=== PATIENT | female | born 1955 | race African-American/Black ===

== ENCOUNTER 2019-04-04 19:49 | Emergency (ER) | payer MEDICAID ==
[2019-04-04] MEDS ORDERED: NA CHLORIDE 0.9% 1,000 ML ONE (20:19)
[2019-04-04 20:35] LABS: Absolute Lymphocytes (CBC) 3.4 K/uL (0.7-4.9); Basophils % 2.1 % (0-1.3); Hematocrit 42.1 % (36.0-45.0); MPV 7.6 fL (7.6-11.3); RBC Red Blood Cell Count 4.99 M/uL (3.86-4.86)
[2019-04-04 20:52] LABS: ALT/SGPT 19 U/L (12-78); AST/SGOT 10 U/L (15-37); Albumin 4.3 g/dL (3.4-5.0); Alkaline Phosphatase 118 U/L (45-117); BUN Blood Urea Nitrogen 5 mg/dL (7-18); Bicarbonate 28 mmol/L (21-32); Bilirubin Total 0.2 mg/dL (0.2-1.0); Glucose Level 121 mg/dL (74-106); Protein, Total 8.2 g/dL (6.4-8.2); Sodium Level 146 mmol/L (136-145)
[2019-04-04] MEDS ORDERED: LIDOCAINE 1% MPF 30 ML VIAL ONE (21:42)
[2019-04-04 22:05] LABS: Blood Morphology Comment NOT SEEN (NOT SEEN); Platelet Estimate ADEQ
[2019-04-04 22:06] LABS: Urine Blood NEGATIVE (NEG); Urine Glucose NEGATIVE (NEG); Urine Protein NEGATIVE (NEG); Urine Specific Gravity 1.015 (1.005-1.030)
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
--- NOTE | 2019-04-06 15:13 | RAD REPORT ---
EXAM DESCRIPTION: Faith Single View04/06/2019 8:38 am CLINICAL HISTORY: Chest pain COMPARISON: 2016 FINDINGS: Due to technical issues at the hospital the exam could not be dictated after completion. It is now available for dictation The lungs appear clear of acute infiltrate. The heart is normal size IMPRESSION: No acute abnormalities displayed
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
== END 2019-04-04 22:46 | disposition home or self-care (01) ==
LOC: ER 19:49
DX: S01.01XA Laceration without foreign body of scalp, initial encounter (principal); F10.10 Alcohol abuse, uncomplicated; W01.198A Fall on same level from slipping, tripping and stumbling with subsequent striking against other object, initial encounter; Y93.89 Activity, other specified; Y92.9 Unspecified place or not applicable; Z88.0 Allergy status to penicillin; Z88.5 Allergy status to narcotic agent; Z91.018 Allergy to other foods; F17.210 Nicotine dependence, cigarettes, uncomplicated; I10 Essential (primary) hypertension; F41.9 Anxiety disorder, unspecified
CPT/HCPCS: 96361; 85025; 36415; 80320; 86900; 86850; 86901; 81003; 80053; 70450; 72125; 71045; 72170; 96360; 99285; J7030

== ENCOUNTER 2021-12-17 10:39 | Observation (INO) | payer OTHER ==
--- OUTSIDE RECORDS SUMMARY | 2021-12-17 10:42 | XMS REPORT | Continuity of Care Document ---
:1955 Author Organization [facility] t Address [address] [place] [address] Care Team Providers Name Role Phone Jennifer MOORE Primary Care Physician Unavailable José Miguel QUARLES Attending Clinician Vega RAYMOND Attending Clinician Unavailable Pgy3 Attending Clinician Unavailable Vega Raymond MD Attending Clinician MARLYS MARKS Attending Clinician Unavailable Payers Payer Name Policy Type Policy Number Effective Date Expiration Date Artem PRIDE/[facility] DUAL [id number] 2021 00:00:00 COMP HMO D SNP Problems Condition Condition Condition Status Onset Resolution Last Treating Co mments Source Name Details Category Date Date Treatment Clinician Date Endometria Endometria Disease Active 2020-07 U nivers l l 0-31 ity [place] a, simple 00 [facility] Branch Fibroids, Fibroids, Disease Active Uni vers submucosal submucosal 2-10 it y of 00:: [place] [facility] Endometria Endometria Disease Active Overview : Univers l polyp l polyp 1-05 Formattin ity o f 00:00: g of this [place] note Medical might be Branch different from the original. Added automatic ally from request for surgery [id number] Tobacco Tobacco Disease Active Univers use use 7-30 ity of 00:00: [place] [facility] Postmenopa Postmenopa Disease Active 2020-0 U nivers usal usal 7-30 ity of bleeding bleeding 00:00: [place] 00 Medical Branch ASCUS with ASCUS with Disease Active Overview : Univers positive positive 07-30 Formattin ity of high risk high risk 00:00: [place] of this [place] HPV HPV 00 note Medical cervical cervical might be Bran ch different from the original. 07/30/2014 - colpo History of History of Problem Resolve [place] Arthritis Arthritis d Phys ici ans History of History of Problem Resolve [place] Back pain Back pain d Phys ici ans History of History of Problem Resolve [place] Stroke Stroke d Physici ans Lumbar Lumbar Problem Active [facility] strain strain Physici ans Lumbar Lumbar Problem Active [place] facet facet Physici arthropath arthropath an s y y Allergies, Adverse Reactions, Alerts Allergy Allergy Status Severity Reaction(s) Onset Inactive Treating Comm ents Source Name Type Date Date Clinician rosuvast DA Active [facility] atin 10-18 [place] 00:00: [facility] Penicill DA Active [facility] ins 10-03 [place] 00:00: [facility] 00 [facility] banana DA Active [facility] 10-03 [place] 00:00: [facility] 00 [facility] Banana Propensi Active Hives Univers ty to 7 ity of adverse 00:00: [place] reaction 00 Medical s to Branch drug BANANA DRUG Active Hives Univers INGREDI 01-18 ity of 00:00: [place] 00 Medical Branch Codeine Propensi Active Unknown - Univ ers ty to See comments 11-05 ity of adverse 00:00: [place] reaction 00 Medical s Branch Penicill Propensi Active Unknown - Uni vers ins ty to See comments 11-05 ity of adverse 00:00: [place] reaction 00 Medical s Branch CODEINE DRUG Active Unknown-Cmnt Uni vers INGREDI 5 ity of 00:00: [place] 00 Medical Branch PENICILL Drug Active Unknown-Cmnt Un deepak INS Class - ity of 00:00: [place] 00 Medical Branch Penicill Allergy Active [facility] ins to drug Physici (finding ans ) Social History Social Habit Start Date Stop Date Quantity Comments Source History of Cigarette Smoker Universi ty of tobacco use [facility] Exposure to Not sure University of SARS-CoV-2 [place] [facility] (event) Branch Alcohol intake 2021-04-30 2021-04-30 Current University of 00:00:00 00:00:00 non-drinker of [facility] [place] [facility] alcohol (finding) Branch Tobacco Comment 2020-01-30 2020-01-30 smokes 10-12 Univers ity of 00:00:00 00:00:00 cigarettes per day [facility] Tobacco use and 2014-07-30 2014-07-30 Never used Universit y of exposure 00:00:00 00:00:00 [facility] Sex [birth year] At [birth year] Universit y of 00:00:00 00:00:00 [facility] Smoking Status Start Date Stop Date Source Smokes tobacco daily (finding) U T Physicians Medications Ordered Filled Start Stop Current Ordering Indication Dosage Frequency Signature Comments Components Source Medication Medication Date Date Medication? Clinician (SIG) Name Name medroxyPROG 2020-07 Yes 10mg Take 1 Univers ESTERone 0-31 tablet by ity of (PROVERA) 00:00: mouth [place] 10 mg 00 daily. Medical tablet Branch medroxyPROG 2020-07 Yes 10mg Take 1 Univers ESTERone 0-31 tablet by ity of (PROVERA) 00:00: mouth [place] 10 mg 00 daily. Medical tablet Branch medroxyPROG 2020- No [id number] 10mg Take 1 Univers ESTERone 3-03 10-31 tablet by ity o f (PROVERA) 00:00: 00:00 mouth [place] 10 mg 00 :00 daily. Medical tablet Branch traMADOL Yes 50mg Take 50 mg Uni vers (ULTRAM) 50 2-10 by mouth ity of mg tablet 11:10: every 6 [place] [address] (six) Medical hours as Branch needed. NAPROXEN Yes Take by Unive rs SODIUM 2-10 mouth ity of (ALEVE 11:10: daily. [place] ORAL) Medical Branch FLUoxetine Yes 20mg Take 20 mg U nivers (PROZAC) 20 2-10 by mouth ity of mg capsule 11:10: daily. [place] [address] Medical Branch mirtazapine Yes Take by Un deepak (REMERON 2-10 mouth. ity of ORAL) 11:10: [place] [address] Medical Branch cyclobenzap Yes Take by Un deepak rine HCl 2-10 mouth. ity of (CYCLOBENZA 11:10: [place] LYNDSEY ORAL) Medical Branch FELODIPINE Yes Take by Uni vers ORAL 2-10 mouth. ity of 11:10: [place] [address] Medical Branch INDOMETHACI Yes Take by Un deepak N ORAL 2-10 mouth. ity of 11:10: [place] [address] Medical Branch atorvastati Yes Take by Un deepak n calcium 2-10 mouth. ity of (ATORVASTAT 11:10: [place] IN ORAL) Medical Branch GABAPENTIN Yes Take by Uni vers ORAL 2-10 mouth. ity of 11:10: [place] [address] Medical Branch diclofenac Yes 75mg Take 75 mg U nivers 75 mg EC 2-10 by mouth 2 ity o f tablet 11:10: (two) [place] [address] times Medical daily with Branch meals. alendronate Yes Take by Un deepak sodium 2-10 mouth ity of (ALENDRONAT 11:10: weekly. [place] as E ORAL) Medical Branch traMADOL Yes 50mg Take 50 mg Uni vers (ULTRAM) 50 2-10 by mouth ity of mg tablet 11:10: every 6 [place] [address] (six) Medical hours as Branch needed. NAPROXEN Yes Take by Unive rs SODIUM 2-10 mouth ity of (ALEVE 11:10: daily. [place] ORAL) Medical Branch FLUoxetine Yes 20mg Take 20 mg U nivers (PROZAC) 20 2-10 by mouth ity of mg capsule 11:10: daily. [place] [address] Medical Branch mirtazapine Yes Take by Un deepak (REMERON 2-10 mouth. ity of ORAL) 11:10: [place] [address] Medical Branch cyclobenzap Yes Take by Un deepak rine HCl 2-10 mouth. ity of (CYCLOBENZA 11:10: [place] LYNDSEY ORAL) Medical Branch FELODIPINE Yes Take by Uni vers ORAL 2-10 mouth. ity of 11:10: [place] [address] Medical Branch INDOMETHACI Yes Take by Un deepak N ORAL 2-10 mouth. ity of 11:10: [place] [address] Medical Branch atorvastati Yes Take by Un deepak n calcium 2-10 mouth. ity of (ATORVASTAT 11:10: [place] IN ORAL) 27 Medical Branch GABAPENTIN Yes Take by Uni vers ORAL 2-10 mouth. ity of 11:10: [place] 27 Medical Branch diclofenac Yes 75mg Take 75 mg U nivers 75 mg EC 2-10 by mouth 2 ity o f tablet 11:10: (two) [place] 27 times Medical daily with Branch meals. alendronate Yes Take by Un deepak sodium 2-10 mouth ity of (ALENDRONAT 11:10: weekly. [place] as E ORAL) Medical Branch ibuprofen Yes [id number] 600mg Take 1 Univers 600 mg 2-10 tablet by ity of tablet 00:00: mouth [place] 00 every 6 Medical (six) Branch hours as needed for Pain (scale 4-6). ibuprofen Yes [id number] 600mg Take 1 Univers 600 mg 2-10 tablet by ity of tablet 00:00: mouth [place] 00 every 6 Medical (six) Branch hours as needed for Pain (scale 4-6). acetaminoph 2021- No [id number] 650mg Take 2 Univers en 2-10 02-11 tablets by ity of (TYLENOL) 00:00: 05:59 mouth [place] 325 mg 00 :00 every 6 Medical tablet (six) Branch hours as needed for Pain (scale 4-6). acetaminoph 2021- No [id number] 650mg Take 2 Univers en 2-10 02-11 tablets by ity of (TYLENOL) 00:00: 05:59 mouth [place] 325 mg 00 :00 every 6 Medical tablet (six) Branch hours as needed for Pain (scale 4-6). Gabapentin Gabapentin Yes [place] TABS TABS Physici ans Immunizations Ordered Filled Immunization Date Status Comments Sour e Immunization Name Name SARS-COV-2 COVID-19 2020-10-15 Completed Unive rsity of MODERNA VACCINE 00:00:00 [facility] SARS-COV-2 COVID-19 2020-10-15 Completed Unive rsity of MODERNA VACCINE 00:00:00 [facility] Td 2006-07-03 Completed University 00:00:00 [facility] Td 2006-07-03 Completed University 00:00:00 [facility] Vital Signs Vital Name Observation Time Observation Value Comments Source Body height 2021-04-30 18:46:00 165.1 cm [facility] Body weight 2021-04-30 18:46:00 76.885 kg [facility] BMI 2021-04-30 18:46:00 28.21 kg/m2 [facility] Systolic blood 2021-04-30 18:46:00 131 mm[Hg] Univer sity [facility] [place] Diastolic blood 2021-04-30 18:46:00 72 mm[Hg] Unive rsity [facility] [place] Heart rate 2021-04-30 18:46:00 90 /min [facility] Body temperature 2021-04-30 18:46:00 36.67 Ericka [facility] Respiratory rate 2021-04-30 18:46:00 18 /min [facility] Procedures Procedure Date / Time Performed Performing Clinician [facility] e SURGICAL PATHOLOGY 2021-04-30 20:37:00 Ann Valdez y of [facility] XRAY Sacrum and 2019-09-17 00:00:00 [place] Physician s coccyx series [id number] XRAY Spine lumbar 2019-09-17 00:00:00 [place] Physici ans series [id number] History of Cyst [place] Physicians excision Encounters Start End Encounter Admission Attending Care Care Encounter Source Date/Time Date/Time Type Type Clinicians Facility Department ID 2021-05-10 2021-05-10 Telephone LUIS Valdez [id number] Univers 00:00:00 00:00:00 Ann [facility] [id number] i ty of CL[place]ICS [id number] [address] Branch 2021-04-30 2021-04-30 Outpatient R YUSUF [facility] [id number] Univers 13:45:00 16:24:53 MELODY silverio [facility] 2021-04-30 2021-04-30 Office Pgy3 UNIVERSIT [id number] Univers 13:40:52 15:28:42 Visit Melody Raymond Mundi [id number] ity of CLINICS [id number] Hannah franco [id number] [place] [address] Branch 2019-08-07 2019-08-07 Appointmen RADHATESSA KNAPP [facility] [id number] [place] 11:00:00 11:00:00 t; MARLYS MARKS, - [facility] EARL MARKS, II zaire ELLIOTT M.D. M.D. Results Test Description Test Time Test Comments Results Result Comments Source HEMOGLOBIN A1c 2021-11-20 05:16:06 Test Item Value Reference Range Interpretation Comme nts HEMOGLOBIN A1c (test code = 7.8 % 4.2-5.6 H [employer] 50864) GUIDELINES FOR HGB A1C: PREDIABETES/INC REASED RISK . . . . . . . 5.7-6.4% DIAGNOSIS OF DIABETES . . . . . . . . . >=6.5% WITH CONFIRMATION OR APPROPRIATE SYMPTOMS NOTE: ASSAY MA Y BE AFFECTED BY HEMOGLOBINOPATH IES (SICKLE CELL ANEMIA, S-C DIS EASE, OTHERS) OR ARTIFICIALLY LO WERED BY DECREASED RED CELL SURVIV AL (HEMOLYTIC ANEMIAS, BLOOD LOSS, ETC.). CONSIDER ALTERNATE TESTI NG OR LABORATORY CONSULTATION. LIPID [id number] 05:03:33 Test Item Value Reference Range Interpretation Comments CHOLESTEROL (test 237 MG/DL <200 H code = 2210) TRIGLYCERIDES (test 418 MG/DL <150 H code = 2232) HDL CHOLESTEROL 27 MG/DL >39 L (test code = 2220) CALC LDL CHOL (test (NOTE) MG/DL <100 UNABLE T O CALCULATE A code = 2237) VALID LDL DYANA STEROL WHEN THE TRIGLYCERIDEVAL UE IS GREATER THAN 40 0 MG/DL.UNABLE TO CALCULATE A VANE ID LDL CHOLESTEROL WHE N THE TRIGLYCERIDEVAL UE IS GREATER THAN 40 0 MG/DL. NOTE: CALCULATE D LDL IS BASED ON NURA -COWART METHOD WHICHINC LUDES ADJUSTABLE TRIGLYCERIDE:VL DL CHOLESTEROL RAT IO.THIS FACTOR VARIES B Y MEASURED TRIGLY CERIDE AND NON-HDLCHOL ESTEROL CONCENTRATIONS WITH INCREASED CALCU LATED LDL SEENIN HIGH ER TRIGLYCERIDE OR LOWER NON-HDL SPECIME NS. FOR MOREINFORMATION , SEE CLIENT ANNOUNCE MENT AT [email or web address] RISK RATIO LDL/HDL (NOTE) RATIO <3.22 (test code = 2238) UNABLE TO CALCULATE COMPREHENSIVE METABOLIC [id number] 05:03:33 Test Item Value Reference Range Interpretation Comments GLUCOSE (test code = 215 MG/DL 70-99 H 2216) BUN (test code = 6 MG/DL 8-23 L 2207) CREATININE (test 0.74 MG/DL 0.60-1.30 code = 2214) eGFR (2020 CKD-EPI) 89 >60 (test code = 41136) ML/MIN/1.73 CALC BUN/CREAT (test 8 RATIO 6-28 code = 2235) SODIUM (test code = 141 MEQ/L 701-357 6654) POTASSIUM (test code 3.2 MEQ/L 3.5-5.4 L = 2227) CHLORIDE (test code 104 MEQ/L 95-107 = 2214) CARBON DIOXIDE (test 21 MEQ/L 19-31 code = 2206) CALCIUM (test code = 9.2 MG/DL 8.5-10.5 2208) PROTEIN, TOTAL (test 7.3 G/DL 6.1-8.3 code = 222) ALBUMIN (test code = 4.3 G/DL 3.5-5.2 2200) CALC GLOBULIN (test 3.0 G/DL 1.9-3.7 code = 2240) CALC A/G RATIO (test 1.4 RATIO 1.0-2.6 code = 2234) BILIRUBIN, TOTAL 0.3 MG/DL See_Comment [Automated message] (test code = 2207) The syste m which generated this result transmitted ref erence range: <=1.2. T he reference range was not used to int erpret this result as normal/abnormal . ALKALINE PHOSPHATASE 111 U/L 40-142 (test code = 2204) AST (test code = 10 U/L 9-40 2217) ALT (test code = 9 U/L 5-40 UNLE SS 2218) OTHERWISE INDIC ATED, ALL TESTING PER FORMED ATCLINICAL PATH OLOGY LABORATORIES, I [address] [facility] [place] [address] LABORATORY DIRE CTOR: VERA PETERSON M.D. CLIA NUMBER [id number] CAP ACCREDITATION N O. [id number] CBC W/AUTO DIFF WITH [id number] 03:46:41 Test Item Value Reference Range Interpretation Comments WBC (test code = 6.7 K/UL 3.5-11.0 1001) RBC (test code = 5.18 M/UL 3.80-5.40 1002) HEMOGLOBIN (test code 14.1 G/DL 11.5-15.5 = 1003) HEMATOCRIT (test code 40.4 % 34.0-45.0 = 1004) MCV (test code = 78.0 fL 80.0-99.0 L 1005) MCH (test code = 27.2 PG 25.0-33.0 1006) MCHC (test code = 34.9 G/DL 31.0-36.0 1007) RDW (test code = 15.4 % 11.5-15.0 H 1038) NEUTROPHILS (test 41.6 % code = 1008) LYMPHOCYTES (test 45.5 % code = 1010) MONOCYTES (test code 7.5 % = 1011) EOSINOPHILS (test 4.5 % code = 1012) BASOPHILS (test code 0.6 % = 1013) IMMATURE GRANULOCYTES 0.3 % (test code = 1036) NUCLEATED RBCS (test 0.0 /100 See_Comment [Autom ated code = 1065) WBC'S message] The sy stem which generated this result transmitted reference range : 0.0. The refere nce range was not u sed to interpret th is result as normal/abnormal . PLATELET COUNT (test 342 K/UL 130-400 code = 1015) ABSOLUTE NEUTROPHILS 2.80 K/UL 1.50-7.50 (test code = 1066) ABSOLUTE LYMPHOCYTES 3.05 K/UL 1.00-4.00 (test code = 1067) ABSOLUTE MONOCYTES 0.50 K/UL 0.20-1.00 (test code = 1068) ABSOLUTE EOSINOPHILS 0.30 K/UL 0.00-0.50 (test code = 1040) ABSOLUTE BASOPHILS 0.04 K/UL 0.00-0.20 (test code = 1069) ABS IMMATURE 0.02 K/UL 0.00-0.10 GRANULOCYTES (test code = 1020) ABS NUCLEATED RBCS 0.00 K/UL 0.00-0.11 (test code = 21773) TSH, THIRD [id number] 06:08:04 Test Item Value Reference Range Interpretation Comments TSH, THIRD 1.700 UIU/ML 0.400-4.100 UNLESS GENERATION (test OTHERWISE I NDICATED, code = 6851) ALL TESTING PER FORMED ATCLINICAL PATH OLOGY LABORATORIES, I [address] [place] [address] LABORATORY DIRE CTOR: VERA PETERSON M.D. CLIA NUMBER [id number] CAP ACCREDITATION N O. [id number] LIPID [id number] 03:59:07 Test Item Value Reference Range Interpretation Comments CHOLESTEROL (test 181 MG/DL <200 code = 2210) TRIGLYCERIDES (test 257 MG/DL <150 H code = 2232) HDL CHOLESTEROL (test 28 MG/DL >39 L code = 2220) CALC LDL CHOL (test 116 MG/DL <100 H NOTE: C ALCULATED LDL code = 2237) IS BASED ON NURA-COWART METHOD WHICHINCLUDES ADJUSTABLE TRIGLYCERIDE:VL DL CHOLESTEROL RAT IO.THIS FACTOR VARIES B Y MEASURED TRIGLY CERIDE AND NON-HDLCHOL ESTEROL CONCENTRATIONS WITH INCREASED CALCU LATED LDL SEENIN HIGH ER TRIGLYCERIDE OR LOWER NON-HDL SPECIME NS. FOR MOREINFORMATION , SEE CLIENT ANNOUNCE MENT AT [email or web address] RISK RATIO LDL/HDL 4.14 RATIO <3.22 H (test code = 2238) COMPREHENSIVE METABOLIC [id number] 03:59:07 Test Item Value Reference Range Interpretation Comments GLUCOSE (test code = 162 MG/DL 70-99 H 2216) BUN (test code = 8 MG/DL 02-22) CREATININE (test 0.74 MG/DL 0.60-1.30 EFFECTIVE code = 2214) 06/14/2021, [facility] HAS IMPLEMENTED THE NKF-ASN RECOMME NDED KD-EPI EGF R REFIT CALCULATI ON THAT DOES NOT INCLUDE A COEFFICIENT FOR RACE. FOR MORE INFORMATION, SE E ANNOUNCEMENT [email or web address] eGFR (2020 CKD-EPI) 89 ML/MIN/1.73 >60 (test code = 54127) CALC BUN/CREAT (test 11 RATIO 6-28 code = 2235) SODIUM (test code = 143 MEQ/L 702-826 4318) POTASSIUM (test code 4.1 MEQ/L 3.5-5.4 = 2228) CHLORIDE (test code 104 MEQ/L 95-107 = 2215) CARBON DIOXIDE (test 22 MEQ/L 19-31 code = 2206) CALCIUM (test code = 9.4 MG/DL 8.5-10.5 2208) PROTEIN, TOTAL (test 7.3 G/DL 6.1-8.3 code = 222) ALBUMIN (test code = 4.4 G/DL 3.5-5.2 2200) CALC GLOBULIN (test 2.9 G/DL 1.9-3.7 code = 2240) CALC A/G RATIO (test 1.5 RATIO 1.0-2.6 code = 2234) BILIRUBIN, TOTAL 0.4 MG/DL See_Comment [Automated message] (test code = 220) The [employer] which generated this result transmit juan a reference range : <=1.2. The refe rence range was not u sed to interpret th is result as normal/abnormal . ALKALINE PHOSPHATASE 121 U/L 40-142 (test code = 2203) AST (test code = 8 U/L 9-40 L 2217) ALT (test code = 6 U/L 5-40 2218) HEMOGLOBIN [id number] 03:54:43 Test Item Value Reference Range Interpretation Comments HEMOGLOBIN A1c (test 7.6 % 4.2-5.6 H [employer] code = 53284) ASSOCIATION IDELINES FOR HGB A1C: PREDIABETES/INC REASED RISK . . . . . . . 5.7 -6.4% DIAGNOSIS OF D IABETES . . . . . . . . . > =6.5% WITH CONFIRM ATION OR APPROPRIATE SYM PTOMS NOTE: ASSAY MAY BE AFFECTED BY HEMOGLOBINOP ATHIES (SICKLE ERICKA L ANEMIA, S-C DISEASE, OTHERS ) OR ARTIFICIALLY LO WERED BY DECREASED RED C ELL SURVIVAL (HEMOLYTIC ANEM IAS, BLOOD LOSS, ETC.) . CONSIDER ALTERNATE TESTI NG OR LABORATORY CONS ULTATION. [U] XRAY SPINE LUMBOSACRAL 2 OR 3 VWS [id number] 11:10:00Images acquired, not reported on this accession number.[facility]
[2021-12-17 11:24] LABS: Absolute Lymphocytes (CBC) 2.7 K/uL (0.7-4.9); Hematocrit 40.2 % (36.0-45.0); Lymphocytes % 39.9 % (15.3-44.8); MPV 7.3 fL (7.6-11.3)
[2021-12-17 12:04] LABS: Albumin 3.7 g/dL (3.4-5.0); Bilirubin Direct 0.1 mg/dL (0-0.2); Bilirubin Total 0.3 mg/dL (0.2-1.0); Potassium 3.1 mmol/L (3.5-5.1); Protein, Total 7.5 g/dL (6.4-8.2); Troponin High Sensitivity 7.2 pg/mL (<58.9)
[2021-12-17 12:07] LABS: Magnesium 1.4 mg/dL (1.8-2.4)
--- NOTE | 2021-12-17 12:39 | RAD REPORT ---
EXAM DESCRIPTION: CT - Chest Angio - 12/17/2021 12:21 pm CLINICAL HISTORY: Chest pain, nonspecific COMPARISON: Thorax Wo Con dated 01/13/2016 FINDINGS: Chest Wall: No suspicious thyroid nodules or pathologic lymphadenopathy. Lungs: No acute abnormality. Pleura: No significant effusions or pneumothorax. Mediastinum/yvonne: No pathologic lymphadenopathy. Small hiatal hernia. Pulmonary arteries/Aorta: No filling defect identified. No aortic aneurysm. Heart: No significant pericardial effusion. Normal heart size. Coronary artery calcifications. Aortic root calcifications. Upper abdomen: Minimal left renal scarring. Tiny too small to characterize renal lesions which are st atistically benign. The pancreatic duct is dilated to about the level of the pancreatic neck. This wa s probably present on the CT from 2016. There is increased pancreatic atrophy since that study. The p ancreas is incompletely imaged. Bones: No acute abnormality. All CT scans are performed using dose optimization technique as appropriate and may include automated exposure control or mA/KV adjustment according to patient size. IMPRESSION: Negative for pulmonary embolism. No acute findings within the chest. Pancreatic ductal dilatation and increased pancreatic atrophy. Consider nonemergent pancreatic protoc ol MRI to exclude an underlying lesion.
[2021-12-17] MEDS ORDERED: MAGNESIUM SULFATE 1 gm IVPB 1 GM/100 ML BAG IV ONE (12:54)
[2021-12-17] MEDS ORDERED: ONDANSETRON 4 MG/2 ML VIAL ONE (12:59)
[2021-12-17] MEDS ORDERED: MORPHINE 4 MG/ML SYR ONE ×2 (12:59→18:47)
[2021-12-17 13:07] LABS: White Blood Cell Scan OK (OK)
[2021-12-17 13:08] LABS: Blood Morphology Comment NOT SEEN (NOT SEEN); Platelet Estimate ADEQ
--- NOTE | 2021-12-17 13:10 | RAD REPORT ---
EXAM DESCRIPTION: RAD - Chest Single View - 12/17/2021 1:02 pm CLINICAL HISTORY: CONGESTION COMPARISON: Chest Single View dated 04/04/2019; Chest Single View dated 01/06/2016; CHEST SINGLE VIEW d ated 06/12/2014; CHEST PA AND LAT 2 VIEW dated 10/17/2011 FINDINGS: Lines: None. Lungs: No evidence of edema or pneumonia. Pleural: No significant pleural effusions or pneumothorax. Cardiac: The heart size is within normal limits. Bones: No acute fractures. Other: IMPRESSION: No acute cardiopulmonary disease.
--- NOTE | 2021-12-17 13:24 | ER ---
Nurse's Notes [facility] Name: Sharmila Harris Age: 66 yrs Sex: Female : 1955 Arrival Date: 12/17/2021 Time: 10:40 Bed 13 Private MD: Diagnosis: Chest pain, unspecified Presentation: 12/17 10:49 Chief complaint: Patient states: right sided chest pain through to her back and jennifer her iw right arm, started yesterday. Coronavirus screen: At this time, the client does not indicate any symptoms associated with coronavirus-19. Ebola Screen: Patient negative for fever greater than or equal to 101.5 degrees Fahrenheit, and additional compatible Ebola Virus Disease symptoms Patient denies exposure to infectious person. Patient denies travel to an Ebola-affected area in the 21 days before illness onset. No symptoms or risks identified at this time. Initial Sepsis Screen: Does the patient meet any 2 criteria? No. Patient's initial sepsis screen is negative. Does the patient have a suspected source of infection? No. Patient's initial sepsis screen is negative. Risk Assessment: Do you want to hurt yourself or someone else? Patient reports no desire to harm self or others. Onset of symptoms was December 16, 2021. 10:49 Method Of Arrival: Wheelchair iw 10:49 Acuity: ARMANDO 2 iw Historical: - Allergies: 10:50 Bananas; iw 10:50 Codeine; iw 10:50 PENICILLINS; iw - PMHx: 10:50 Anxiety; Back pain; Hypertension; iw - Immunization history:: Client reports receiving the 2nd dose of the Covid vaccine. - Social history:: Smoking status: Patient reports the use of cigarette tobacco products. - Family history:: not pertinent. Screenin:19 Abuse screen: Denies threats or abuse. Denies injuries from another. Nutritional ph screening: No deficits noted. Tuberculosis screening: No symptoms or risk factors identified. Fall Risk None identified. Assessment: 11:35 General: Appears in no apparent distress. uncomfortable, well groomed, Behavior is ph calm, cooperative, appropriate for age, Denies fever, feeling ill. Pain: Complains of pain in anterior aspect of right upper chest Pain radiates to back and right arm Pain began 1 day ago. Neuro: Level of Consciousness is awake, alert, obeys commands, Oriented to person, place, time, situation. Cardiovascular: Reports chest pain, Capillary refill < 3 seconds in bilateral fingers Patient's skin is warm and dry. Chest pain is located in right anterior chest wall radiates to right arm(s) back neck. Respiratory: Airway is patent Respiratory effort is even, unlabored. GI: No signs and/or symptoms were reported involving the gastrointestinal system. Derm: Skin is intact, is healthy with good turgor, Skin is pink, warm \\T\\ dry. Musculoskeletal: Circulation, motion, and sensation intact. Range of motion: intact in all extremities. 13:00 Reassessment: Patient appears in no apparent distress at this time. Patient and/or ph family updated on plan of care and expected duration. Pain level reassessed. Patient is alert, oriented x 3, equal unlabored respirations, skin warm/dry/pink. 14:30 Reassessment: Patient appears in no apparent distress at this time. Patient and/or ph family updated on plan of care and expected duration. Pain level reassessed. Patient is alert, oriented x 3, equal unlabored respirations, skin warm/dry/pink. 16:00 Reassessment: Patient appears in no apparent distress at this time. Patient and/or ph family updated on plan of care and expected duration. Pain level reassessed. Patient is alert, oriented x 3, equal unlabored respirations, skin warm/dry/pink. 18:58 Reassessment: Patient appears in no apparent distress at this time. Patient and/or ph family updated on plan of care and expected duration. Pain level reassessed. Patient is alert, oriented x 3, equal unlabored respirations, skin warm/dry/pink. Pt continues to c/o R sided chest, back and neck pain, states that IV pain medications are only providing temporary relief. 19:05 Reassessment: Patient appears in no apparent distress at this time. Patient and/or ph family updated on plan of care and expected duration. Pain level reassessed. Patient is alert, oriented x 3, equal unlabored respirations, skin warm/dry/pink. Pt's sister at bedside, pt states that she wants to leave AMA, sister at bedside states that she is going to take her to another hospital for further evaluation, states, " This Dr here just seems like he doesn't know what he is doing. The medicine is not helping her and he seemed like he didn't know what he was even talking about when he came in here.". Vital Signs: 10:49 BP 108 / 59; Pulse 86; Resp 16; Temp 97.0; Pulse Ox 100% on R/A; Weight 75.3 kg; Height iw 5 ft. 5 in. (165.10 cm); Pain 10/10; 13:19 BP 99 / 58; Pulse 68; Resp 18; Pulse Ox 100% on R/A; ph 14:00 BP 125 / 72; Pulse 68; Resp 18; Pulse Ox 99% on R/A; ph 15:00 BP 98 / 66; Pulse 62; Resp 16; Pulse Ox 98% on R/A; ph 16:00 BP 113 / 70; Pulse 67; Resp 16; Pulse Ox 100% on R/A; ph 17:00 BP 125 / 74; Pulse 59; Resp 18; Pulse Ox 99% on R/A; ph 18:00 BP 125 / 63; Pulse 63; Resp 16; Pulse Ox 97% on R/A; ph 18:54 BP 134 / 121; Pulse 65; Resp 18; Pulse Ox 100% on R/A; ph 19:00 BP 136 / 71; Pulse 64; Resp 16; Pulse Ox 100% on R/A; ph 10:49 Body Mass Index 27.62 (75.30 kg, 165.10 cm) iw ED Course: 10:40 Patient arrived in ED. rg4 10:50 Triage completed. iw 10:51 Arm band placed on. iw 10:53 Bakari Barraza MD is Attending Physician. ma2 11:01 Lakia Gonzáles, RN is Primary Nurse. ph 11:01 Bed in low position. Call light in reach. Side rails up X 1. Door closed. Noise mb7 minimized. Warm blanket given. 11:01 EKG done, by ED staff, reviewed by Bakari Barraza MD. mb7 11:18 Inserted saline lock: 20 gauge in left forearm, using aseptic technique. Blood mb7 collected. 11:19 Basic Metabolic Panel Sent. mb7 11:19 CBC with Diff Sent. mb7 11:19 Troponin HS Sent. mb7 11:19 LFT's Sent. mb7 11:19 Magnesium Sent. mb7 11:19 NT PRO-BNP Sent. mb7 12:23 Chest Angio In Process Unspecified. EDMS 13:03 XRAY Chest (1 view) In Process Unspecified. EDMS 13:20 Client placed on continuous cardiac and pulse oximetry monitoring. NIBP monitoring ph applied. 13:24 Rylan Kapadia is Hospitalizing Provider. ma2 18:57 No provider procedures requiring assistance completed. Patient admitted, IV remains in ph place. Patient maintains SpO2 saturation greater than 95% on room air. 19:11 Primary Nurse role handed off by Lakia Gonzáles RN mw2 Administered Medications: 13:00 Drug: Magnesium Sulfate 1 grams Route: IVPB; Infused Over: 1 hrs; Site: left wrist; ph 14:03 Follow up: Response: No adverse reaction; IV Status: Completed infusion; IV Intake: ph 100ml 13:03 Drug: Zofran (Ondansetron) 4 mg Route: IVP; Site: left wrist; ph 13:30 Follow up: Response: No adverse reaction; RASS: Alert and Calm (0) ph 13:05 Drug: morphine 4 mg Route: IVP; Infused Over: 4 mins; Site: left wrist; ph 13:30 Follow up: Response: No adverse reaction; RASS: Alert and Calm (0) ph 14:50 Drug: Dilaudid (HYDROmorphone) 1 mg Route: IVP; Site: left wrist; ph 15:30 Follow up: Response: No adverse reaction; RASS: Alert and Calm (0) ph Medication: 13:19 VIS not applicable for this client. ph Intake: 14:03 IV: 100ml; Total: 100ml. ph Outcome: 13:24 Decision to Hospitalize by Provider. ma2 19:30 AMA AMA form signed ph 19:30 Condition: stable 19:32 Patient left the ED. ld1 Signatures: Dispatcher [employer] Lizzy Santiago RN RN iw Lakia Gonzáles RN RN ph Iva Palacios rg4 Bakari Barraza MD MD ma2 Memo Riley mw2 Zulma Wayne RN RN ld1 Stephanie Monzon mb7 Corrections: (The following items were deleted from the chart) 10:51 10:49 Pulse 86bpm; Resp 16bpm; Pulse Ox 100% RA; Temp 97.0F; 75.3 kg; Height 5 ft. 5 iw in.; BMI: 27.6; Pain 10/10; iw
--- NOTE | 2021-12-17 13:25 | EDPHYS ---
Physician Documentation [facility] Name: Sharmila Harris Age: 66 yrs Sex: Female : 1955 Arrival Date: 12/17/2021 Time: 10:40 Bed 13 Private MD: ED Physician Bakari Barraza HPI: 12/17 13:22 This 66 yrs old Black Female presents to ER via Wheelchair with complaints of Chest ma2 Pain, Back Pain. 13:22 Onset: gradually, 1 day(s) ago. Associated signs and symptoms: Pertinent negatives: ma2 cough, headache, lower extremity pain, lower extremity swelling. Severity of pain: At its worst the pain was mild in the emergency department the pain is unchanged. Historical: - Allergies: 10:50 Bananas; iw 10:50 Codeine; iw 10:50 PENICILLINS; iw - PMHx: 10:50 Anxiety; Back pain; Hypertension; iw - Immunization history:: Client reports receiving the 2nd dose of the Covid vaccine. - Social history:: Smoking status: Patient reports the use of cigarette tobacco products. - Family history:: not pertinent. ROS: 13:22 Constitutional: Negative for fever, chills, and weight loss. ma2 13:22 All other systems are negative. Exam: 13:22 Constitutional: This is a well developed, well nourished patient who is awake, alert, ma2 and in no acute distress. Chest/axilla: Normal chest wall appearance and motion. Nontender with no deformity. No lesions are appreciated. Cardiovascular: Regular rate and rhythm with a normal S1 and S2. No gallops, murmurs, or rubs. Normal PMI, no JVD. No pulse deficits. Respiratory: Lungs have equal breath sounds bilaterally, clear to auscultation and percussion. No rales, rhonchi or wheezes noted. No increased work of breathing, no retractions or nasal flaring. Abdomen/GI: Soft, non-tender, with normal bowel sounds. No distension or tympany. No guarding or rebound. No evidence of tenderness throughout. Skin: Warm, dry with normal turgor. Normal color with no rashes, no lesions, and no evidence of cellulitis. MS/ Extremity: Pulses equal, no cyanosis. Neurovascular intact. Full, normal range of motion. Neuro: Awake and alert, GCS 15, oriented to person, place, time, and situation. Cranial nerves II-XII grossly intact. Motor strength 5/5 in all extremities. Sensory grossly intact. Cerebellar exam normal. Normal gait. Vital Signs: 10:49 BP 108 / 59; Pulse 86; Resp 16; Temp 97.0; Pulse Ox 100% on R/A; Weight 75.3 kg; Height iw 5 ft. 5 in. (165.10 cm); Pain 10/10; 13:19 BP 99 / 58; Pulse 68; Resp 18; Pulse Ox 100% on R/A; ph 14:00 BP 125 / 72; Pulse 68; Resp 18; Pulse Ox 99% on R/A; ph 15:00 BP 98 / 66; Pulse 62; Resp 16; Pulse Ox 98% on R/A; ph 16:00 BP 113 / 70; Pulse 67; Resp 16; Pulse Ox 100% on R/A; ph 17:00 BP 125 / 74; Pulse 59; Resp 18; Pulse Ox 99% on R/A; ph 18:00 BP 125 / 63; Pulse 63; Resp 16; Pulse Ox 97% on R/A; ph 18:54 BP 134 / 121; Pulse 65; Resp 18; Pulse Ox 100% on R/A; ph 19:00 BP 136 / 71; Pulse 64; Resp 16; Pulse Ox 100% on R/A; ph 10:49 Body Mass Index 27.62 (75.30 kg, 165.10 cm) iw MDM: 10:53 Patient medically screened. ma2 13:22 Differential diagnosis: abnormal EKG, anxiety, gastroesophageal reflux disease (GERD), ma2 stable angina. Data reviewed: vital signs, nurses notes, EMS record. Counseling: I had a detailed discussion with the patient and/or guardian regarding: the historical points, exam findings, and any diagnostic results supporting the discharge/admit diagnosis, the presence of at least one elevated blood pressure reading (>120/80) during this emergency department visit, the need for further work-up and treatment in the hospital. 12/17 10:54 Order name: Basic Metabolic Panel; Complete Time: 12:10 ar2 12/17 10:54 Order name: CBC with Diff; Complete Time: 14:24 [facility] 12/17 10:54 Order name: LFT's; Complete Time: 12:10 ar2 12/17 10:54 Order name: Magnesium; Complete Time: 12:10 ma2 12/17 10:54 Order name: NT PRO-BNP; Complete Time: 12:10 ma2 12/17 10:54 Order name: Troponin HS; Complete Time: 12:10 ma2 12/17 10:54 Order name: XRAY Chest (1 view); Complete Time: 14:24 ma2 12/17 11:15 Order name: CT Chest Angio [facility] 12/17 11:19 Order name: Chest Angio; Complete Time: 14:24 [facility] 12/17 11:28 Order name: CBC Smear Scan; Complete Time: 14:24 [facility] 12/17 13:41 Order name: SARS-COV-2 RT PCR (Document "Date of Onset" if Symptomatic); Complete Time: iw 19:30 12/17 10:54 Order name: EKG; Complete Time: 10:55 ma2 12/17 10:54 Order name: Cardiac monitoring; Complete Time: 11:00 ar2 12/17 10:54 Order name: EKG - Nurse/Tech; Complete Time: 11:00 ar2 12/17 10:54 Order name: IV Saline Lock; Complete Time: 11:19 ar2 12/17 10:54 Order name: Labs collected and sent; Complete Time: 11:19 ar2 12/17 10:54 Order name: O2 Per Protocol; Complete Time: 11:00 2 12/17 10:54 Order name: O2 Sat Monitoring; Complete Time: 11:01 ma2 Administered Medications: 13:00 Drug: Magnesium Sulfate 1 grams Route: IVPB; Infused Over: 1 hrs; Site: left wrist; ph 14:03 Follow up: Response: No adverse reaction; IV Status: Completed infusion; IV Intake: ph 100ml 13:03 Drug: Zofran (Ondansetron) 4 mg Route: IVP; Site: left wrist; ph 13:30 Follow up: Response: No adverse reaction; RASS: Alert and Calm (0) ph 13:05 Drug: morphine 4 mg Route: IVP; Infused Over: 4 mins; Site: left wrist; ph 13:30 Follow up: Response: No adverse reaction; RASS: Alert and Calm (0) ph 14:50 Drug: Dilaudid (HYDROmorphone) 1 mg Route: IVP; Site: left wrist; ph 15:30 Follow up: Response: No adverse reaction; RASS: Alert and Calm (0) ph Disposition Summary: 12/17/21 13:24 Hospitalization Ordered Hospitalization Status: Observation ma2 Provider: Rylan Kapadia Condition: Stable ma2 Problem: new ma2 Symptoms: are unchanged ma2 Bed/Room Type: Standard ma2 Location: Telemetry/MedSurg (observation)(12/17/21 19:25) dw Room Assignment: (12/17/21 19:25) Diagnosis - Chest pain, unspecified ma2 Forms: - Medication Reconciliation Form ma2 - SBAR form ma2 Signatures: Dispatcher [employer] EDClarisa Alex RN RN dw Lizzy Harris RN RN Lakia Gonzáles RN RN Bakari Barraza MD MD ma2 Ana Reynolds PA PA sb3 Corrections: (The following items were deleted from the chart) 18:34 13:24 ma2 19:25 13:24 Telemetry/MedSurg (observation) [facility] 19:25 18:34 207 dw
[2021-12-17] MEDS ORDERED: HYDROMORPHONE HCL 1 MG/ML INJ ONE (14:45)
--- NOTE | 2021-12-17 17:23 | P.HP ---
Certification for Inpatient Patient admitted to: Observation With expected LOS: <2 Midnights Practitioner: I am a practitioner with admitting privileges, knowledge of patient current condition, hospital course, and medical plan of care. Services: Services provided to patient in accordance with Admission requirements found in Title 42 Section 412.3 of the Code of Federal Regulations Patient History Date of Service: 12/17/21 Reason for admission: Chest pain/back pain History of Present Illness: 66-year-old woman with a history of hypertension diabetes presented to the emergency department with a complaint of chest pain and back pain, which started yesterday. Patient denies any palpitation or shortness of breath. Patient presented to the ED where an initial troponin was negative, EKG unremarkable. Chest x-ray shows no acute disease. CTA thorax negative for pulm embolism, but did demonstrate some pancreatic atrophy and dilation of the pancreatic duct. ED physician wishes to hospitalize patient for chest pain rule out. Heparin was uncontrolled in the ED and was given multiple doses of IV opioids. Allergies banana Allergy (Severe, Verified 01/06/16 17:38) Anaphylaxis codeine Allergy (Intermediate, Verified 01/06/16 17:38) Unknown Penicillins Allergy (Intermediate, Verified 01/06/16 17:38) Unknown Bananas Allergy (Uncoded 01/10/16 05:36) Unknown Home Medications: Fluoxetine HCl [Prozac] 40 mg PO DAILY 01/06/16 Mirtazapine [Remeron] 15 mg PO BEDTIME 01/06/16 hydrOXYzine HCL [Atarax*] 25 mg PO TID 01/06/16 levoFLOXacin [Levaquin*] 500 mg PO DAILY #7 tab 01/08/16 metroNIDAZOLE [Flagyl*] 500 mg PO Q6HR #30 tablet 01/08/16 - Past Medical/Surgical History Diabetic: No -: htn -: anxiety -: back sx -: tubal ligation - Family History Mother -: Heart disease - Social History Smoking Status: Current every day smoker (Half a pack of cigarettes a day) Alcohol use: Yes CD- Drugs: No Caffeine use: Yes Review of Systems Other: Except as documented, all other systems reviewed and negative. Physical Examination - Physical Exam General: Alert, In no apparent distress, Oriented x3 HEENT: PERRLA, Mucous membr. moist/pink, Sclerae nonicteric Neck: Supple, JVD not distended Respiratory: Clear to auscultation bilaterally, Normal air movement Cardiovascular: No edema, Regular rate/rhythm, Normal S1 S2, No murmurs Capillary refill: <2 Seconds Gastrointestinal: Normal bowel sounds, Soft and benign, Non-distended, No tenderness Musculoskeletal: No swelling, No tenderness Integumentary: No rashes, No erythema, No cyanosis Neurological: Normal speech, Normal strength at 5/5 x4 extr, Cranial nerves 3-12 intact Lymphatics: No axilla or inguinal lymphadenopathy - Studies Laboratory Data (last 24 hrs) 12/17/21 11:16: WBC 6.7, Hgb 13.8, Hct 40.2, Plt Count 333 12/17/21 11:16: Sodium 140, Potassium 3.1 L, BUN 10, Creatinine 0.86, Glucose 122 H, Magnesium 1.4 L*, Total Bilirubin 0.3, AST 8 L, ALT 13, Alkaline Phosphatase 93 Assessment and Plan - Problems (Diagnosis) (1) Chest pain Current Visit: Yes Status: Acute (2) Hypertension Current Visit: Yes Status: Acute (3) Type II diabetes mellitus Current Visit: Yes Status: Acute (4) Hypomagnesemia Current Visit: Yes Status: Acute - Plan Patient chest pain is reproducible by palpation. She has areas of tenderness on the right anterior chest and the right paraspinal area in the back. Her chest pain is likely musculoskeletal. Cardiac risk factors include hypertension, diabetes and smoking. Place patient under observation Trend troponin Pain management with IV opioids for musculoskeletal chest pain. Further management pending troponin result. Insulin sliding scale for glucose management. Reconcile and continue other home medications. - Advance Directives Does patient have a Living Will: No Does patient have a Durable POA for Healthcare: No
[2021-12-17 19:38] VITALS: TEMP 97
[2021-12-17 19:50] VITALS: O2SAT 100
[2021-12-17 19:51] VITALS: BP 136/71
--- NOTE | 2021-12-17 21:17 | P.DS ---
Admission Date: 12/17/21 Discharge Date: 12/17/21 Disposition: AMA-LEFT AGAINST MEDICAL ADVIC Discharge Condition: FAIR Reason for Admission: Chest pain/back pain - Problems (1) Chest pain Current Visit: Yes Status: Acute Qualifiers: Chest pain type: unspecified Qualified Code(s): R07.9 - Chest pain, unspecified (2) Hypertension Current Visit: Yes Status: Acute Qualifiers: Hypertension type: primary hypertension Qualified Code(s): I10 - Essential (primary) hypertension (3) Hypomagnesemia Current Visit: Yes Status: Acute (4) Type II diabetes mellitus Current Visit: Yes Status: Chronic Qualifiers: Diabetes mellitus assisted insulin use: without assisted use Diabetes mellitus complication status: with kidney complications Diabetes mellitus complication detail: with chronic kidney disease Chronic kidney disease stage: stage 2 (mild) Qualified Code(s): E11.22 - Type 2 diabetes mellitus with diabetic chronic kidney disease; N18.2 - Chronic kidney disease, stage 2 (mild) Brief History of Present Illness: 66-year-old woman with a history of hypertension diabetes presented to the emergency department with a complaint of chest pain and back pain, which started yesterday. Patient denies any palpitation or shortness of breath. Patient presented to the ED where an initial troponin was negative, EKG unremarkable. Chest x-ray shows no acute disease. CTA thorax negative for pulm embolism, but did demonstrate some pancreatic atrophy and dilation of the pancreatic duct. Hospital Course: Magnesium was low at 1.4 and replaced. She was admitted for observation for ACS R/O, but left AMA shortly after as she was not satisfied with her care. Repeat troponins were not able to be checked. Chest pain was most likely musculoskeletal as it was reproducible by palpation. Vital Signs/Physical Exam: Temp Pulse Resp BP Pulse Ox 97.0 F 64 16 136/71 12/17/21 10:49 12/17/21 19:00 12/17/21 19:00 12/17/21 19:00 Laboratory Data at Discharge: WBC 6.7 K/uL (4.3-10.9) 12/17/21 11:16 Hgb 13.8 g/dL (12.0-15.0) 12/17/21 11:16 Hct 40.2 % (36.0-45.0) 12/17/21 11:16 Plt Count 333 K/uL (152-406) 12/17/21 11:16 Sodium 140 mmol/L (136-145) 12/17/21 11:16 Potassium 3.1 mmol/L (3.5-5.1) L 12/17/21 11:16 BUN 10 mg/dL (7-18) 12/17/21 11:16 Creatinine 0.86 mg/dL (0.55-1.3) 12/17/21 11:16 Glucose 122 mg/dL (74-106) H 12/17/21 11:16 Magnesium 1.4 mg/dL (1.8-2.4) L* 12/17/21 11:16 Total Bilirubin 0.3 mg/dL (0.2-1.0) 12/17/21 11:16 AST 8 U/L (15-37) L 12/17/21 11:16 ALT 13 U/L (12-78) 12/17/21 11:16 Alkaline Phosphatase 93 U/L (45-117) 12/17/21 11:16 Home Medications: Fluoxetine HCl [Prozac] 40 mg PO DAILY 01/06/16 Mirtazapine [Remeron] 15 mg PO BEDTIME 01/06/16 hydrOXYzine HCL [Atarax*] 25 mg PO TID 01/06/16 levoFLOXacin [Levaquin*] 500 mg PO DAILY #7 tab 01/08/16 metroNIDAZOLE [Flagyl*] 500 mg PO Q6HR #30 tablet 01/08/16 Followup: OOT,OOT [Primary Care Provider] -
--- NOTE | 2021-12-20 11:59 | EKG ---
Test Date: 2021-12-17 Test Time: 10:54:57 Mission Commander: MB MEASUREMENT RESULTS: Intervals: Rate: 83 TX: 148 QRSD: 136 QT: 418 QTc: 491 Mcgrew: P: 77 TX: 148 QRS: 49 T: 218 INTERPRETIVE STATEMENTS: Normal sinus rhythm Nonspecific intraventricular block Cannot rule out Anterior infarct, age undetermined T wave abnormality, consider inferolateral ischemia Abnormal ECG Compared to ECG 01/06/2016 09:28:19 Myocardial infarct finding now present T-wave abnormality now present Possible ischemia now present Atrial abnormality no longer present Left ventricular hypertrophy no longer present Electronically Signed On 12-20-21 11:52:26 CDT by Ha Carter
== END 2021-12-17 19:30 | disposition left against medical advice (07) ==
LOC: ER 10:39 → ERHOLD 17:10
PROVIDERS: ADMIT Internal Medicine; ATTEND Internal Medicine
DX: R07.9 Chest pain, unspecified (principal); Z53.29 Procedure and treatment not carried out because of patient's decision for other reasons; E11.22 Type 2 diabetes mellitus with diabetic chronic kidney disease; I12.9 Hypertensive chronic kidney disease with stage 1 through stage 4 chronic kidney disease, or unspecified chronic kidney disease; N18.2 Chronic kidney disease, stage 2 (mild); E83.42 Hypomagnesemia; K86.89 Other specified diseases of pancreas; M54.9 Dorsalgia, unspecified; F41.9 Anxiety disorder, unspecified; F17.210 Nicotine dependence, cigarettes, uncomplicated; Z91.018 Allergy to other foods; Z88.0 Allergy status to penicillin; Z88.6 Allergy status to analgesic agent; Z20.822 Contact with and (suspected) exposure to COVID-19; Z82.49 Family history of ischemic heart disease and other diseases of the circulatory system
CPT/HCPCS: 96365; 93005; 85025; 80048; 36415; 83735; 80076; 84484; 83880; 71275; 71045; 96375; 99284; U0003; Q9967; J3475; J1170; J2405; G0378 ×2

== ENCOUNTER 2024-10-25 08:57 | Emergency (ER) | payer OTHER ==
--- OUTSIDE RECORDS SUMMARY | 2024-10-25 09:35 | XMS REPORT | Continuity of Care Document ---
Author Name Unknown Address [address] [facility] [address] [place] [address] [facility] Address [address] [facility]. [address] [place] [address] Care Team Providers Care City Magistrate Name Role Phone TRENT MOOREILY Jennifer Primary Care Physician Unavail able MELODY RAYMOND Attending Clinician Unavailable [email or web address] Attending Clinician UnavailGLADYS Persaud Attending Clinician Unavailable Gladys Mcpherson MD Attending Clinician [phone] Doctor Unassigned, [place] Attending Clinician U LINK Pinto Attending Clinician UnavailLink Saucedo Attending Clinician [phone] Ann Valdez MD Attending Clinician [phone] Bebo Méndez DO Attending Clinician [phone] Pgy3 Attending Clinician Unavailable Melody Raymond MD Attending Clinician [phone] Merly Osorio MA Attending Clinician Unavailjad Gibbons, [facility] Resident Attending Clinician UnavailDot Camacho MD Attending Clinician [phone] Jessica Cesar MD Attending Clinician [phone] Reji QUARLES, Shefali Stone Attending Clinician Ermias TUCKER, Nicci Attending Clinician [phone] Valery Lockwood MD Attending Clinician [phone], [facility] Us Room Attending Clinician VALERY Gao Attending Clinician Kylie Haider Attending Clinician Gerson Mcdonnell MD Attending Clinician [phone] KYLIE MOORE Attending Clinician Unavailjad e EARL HARVEY M.D. Attending Clinician U MELODY Porter Admitting Clinician Unavailable [email or web address] Admitting Clinician GLADYS Elizondo Admitting Clinician Unavailable Melody Raymond MD Admitting Clinician [phone] Payers Payer Name Policy Type Policy Number Effective Date Expirati on Date Source MEDICARE PART A \T\ B [id number] 2019 00:00:00 [facility] MEDICAID [id number] 2011 00:00:00 [facility] DUAL COMP HMO D SNP [id number] 2021 00:00:00 [place] [id number] 2020 00:00:00 Problems Condition Name Condition Details Condition Category Status Onset Date Resolution Date Last Treatment Date Treating Clinician Comments Source Endometria l hyperplasi a, simple Endometria l hyperplasi a, simple Disease Active 2020-07 0-31 00:00: 00 [facility] Fibroids, submucosal Fibroids, submucosal Disease Active 2- 00:00: 00 [facility] Endometria l polyp Endometria l polyp Disease Active 07-07 00:00: 00 Overview: Formattin g of this note might be different from the original. Added automatic ally from request for surgery [id number] [facility] Endometria l polyp Endometria l polyp Disease Active 07-07 00:00: 00 Overview: Formattin g of this note might be different from the original. 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 07/30/2014 - colpo [facility] History of Arthritis [facility] of [facility] History of Back pain History of Back pain Problem [facility] History of Stroke History of Stroke Problem Resolve [facility] Lumbar strain Lumbar strain Problem Active [facility] Lumbar facet arthropath y Lumbar facet arthropath y Problem Active [facility] Allergies, Adverse Reactions, Alerts Allergy Name Allergy Type Status Severity Reaction(s) Onset Date Inactive Date Treating Clinician Comments Source n Propensi ty to adverse reaction to drug Active 5-18 00:00: 00 [facility] Brown Lisinopr il - Oral Propensi ty to adverse reaction to drug Active 3-15 00:00: 00 Topher Brown Banana Propensi ty to adverse reaction to drug Inactiv e 1-24 00:00: 00 Topher Brown rosuvast atin DA Active HI 4-18 00:00: 00 [facility] Penicill ins DA Active SV 4-03 00:00: 00 [facility] banana DA Active SV 4-03 00:00: 00 [facility] Banana Propensi ty to adverse reaction s to drug Active Hives 01-18 00:00: 00 [facility] BANANA DRUG INGREDI Active Hives 01-18 00:00: 00 [facility] Codeine Propensi ty to adverse reaction s Active Unknown - See comments 11-05 00:00: 00 [facility] Penicill ins Propensi ty to adverse reaction s Active Unknown - See comments 11-05 00:00: 00 [facility] CODEINE DRUG INGREDI Active Unknown-Cmnt 11-05 00:00: 00 [facility] PENICILL INS Drug Class Active Unknown-Cmnt 11-05 00:00: 00 [facility] Penicill ins Propensi ty to adverse reaction s Active Unknown - See comments 11-05 00:00: 00 [facility] Penicill ins Propensi ty to adverse reaction s Active Unknown - See comments 11-05 00:00: 00 [facility] Penicill ins Allergy to drug (finding ) [facility] Social History Social Habit Start Date Stop Date Quantity Comments Source History of tobacco use Cigarette Smoker [facility] Alcohol intake 2022-12-29 00:00:00 2022-12-29 00:00:00 Current non-drinker of alcohol (finding) [facility] Exposure to SARS-CoV-2 (event) 2021-12-07 00:00:00 2021-12-17 20:15:00 Not sure [facility] History of Social function 2020-08-12 00:00:00 2020-08-12 00:00:00 [facility] Tobacco use and exposure 2020-01-30 00:00:00 2020-01-30 00:00:00 Smokeless tobacco non-user [facility] Tobacco Comment 2020-01-30 00:00:00 2020-01-30 00:00:00 smokes 10-12 cigarettes per day [facility] Sex Ass[birth year] At 1955 00:00:00 1955 00:00:00 [facility] Smoking Status Start Date Stop Date Source Smokes tobacco daily 2020-01-30 00:00:00 [facility] Medications Ordered Medication Name Filled Medication Name Start Date Stop Date Current Medication? Ordering Clinician Indication Dosage Frequency Signature (SIG) Comments Components Source Vitamin D2 1,250 mcg (50,000 unit) capsule 08-09 00:00: 00 Yes 1(50,00 0 unit) Top[facility] Brown methocarbam ol 750 mg tablet 07-09 00:00: 00 Yes 1mg Top[facility] Brown albuterol sulfate HFA 90 mcg/actuati on aerosol inhaler 2023-07 00:00: 00 Yes 12mcg/a ctuatio n Topher Brown felodipine ER 10 mg tablet,exte nded release 24 hr 2023-07 00:00: 00 Yes 1mg Topher Borwn metformin 500 mg tablet 2023-07 00:00: 00 Yes 1mg Topher Brown montelukast 10 mg tablet 2023-07 00:00: 00 Yes 1mg Topher Brown atorvastati n 40 mg tablet 2023-07 00:00: 00 Yes 1mg Topher Brown mirtazapine 15 mg tablet 2023-07 00:00: 00 Yes 1mg Topher Brown Vitamin D2 1,250 mcg (50,000 unit) capsule 2023-07 00:00: 00 Yes 1(50,00 0 unit) Top[facility] Brown prednisone 10 mg tablet 2023-07 00:00: 00 Yes 1mg Topher Brown azithromyci n 250 mg tablet 2023-07 00:00: 00 Yes 1mg Top[facility] Brown Bromfed DM 2 mg-30 mg-10 mg/5 mL oral syrup 2023-07- 00:00: 00 Yes 10mg/5 mL Topher Brown gabapentin 300 mg capsule 2023-07- 00:00: 00 Yes 1mg Top[facility] Brown methocarbam ol 750 mg tablet 2023-07-19 00:00: 00 Yes 1mg Top[facility] Brown Vitamin D2 1,250 mcg (50,000 unit) capsule 2023-07 1- 00:00: 00 Yes 1(50,00 0 unit) Top[facility] Brown mirtazapine 15 mg tablet - 00:00: 00 Yes 1mg Tohper Brown Vitamin D2 1,250 mcg (50,000 unit) capsule - 00:00: 00 Yes 1(50,00 0 unit) Top[facility] Brown methocarbam ol 750 mg tablet -20 00:00: 00 Yes 1mg Top[facility] Brown mirtazapine 15 mg tablet 8-07 00:00: 00 Yes 1mg Top[facility] Brown felodipine ER 10 mg tablet,exte nded release 24 hr -24 00:00: 00 Yes 1mg Topher Brown metformin 500 mg tablet - 00:00: 00 Yes 1mg Topher Brown atorvastati n 40 mg tablet - 00:00: 00 Yes 1mg Top[facility] Brown mirtazapine 15 mg tablet 01-02 00:00: 00 Yes 1mg Top[facility] Brown felodipine ER 10 mg tablet,exte nded release 24 hr 11-19 00:00: 00 Yes 1mg Topher Brown metformin 500 mg tablet 11-19 00:00: 00 Yes 1mg Topher Brown methocarbam ol 750 mg tablet 11-19 00:00: 00 Yes 1mg Topher Brown alendronate 70 mg tablet 11-19 00:00: 00 Yes 1mg Topher Brown atorvastati n 40 mg tablet 11-19 00:00: 00 Yes 1mg Top[facility] Brown tizanidine 4 mg tablet 11-19 00:00: 00 Yes 1mg Top[facility] Brown Vitamin D2 1,250 mcg (50,000 unit) capsule 11-19 00:00: 00 Yes 1(50,00 0 unit) [facility] Brown felodipine ER 10 mg tablet,exte nded release 24 hr - 00:00: 00 Yes 1mg Topher Brown alendronate 70 mg tablet 11-10 00:00: 00 Yes 1mg Topher Brown Vitamin D2 1,250 mcg (50,000 unit) capsule 11-10 00:00: 00 Yes 1(50,00 0 unit) [facility] Brown atorvastati n 40 mg tablet -30 00:00: 00 Yes mg Top[facility] Brown mirtazapine 15 mg tablet 3-30 00:00: 00 Yes mg Top[facility] Brown metformin 500 mg tablet 3-30 00:00: 00 Yes mg Top[facility] Brown TAKE 1 TABLET ONCE DAILY. 2-13 00:00: 00 Yes 10 Top[facility] Brown TAKE 1 CAPSULE WEEKLY. 1- 00:00: 00 Yes [id number] [facility] Brown FELODIPINE ER 10 MG TB24 1-10 00:00: 00 Yes Top[facility] Brown metformin 500 mg tablet 2022-07 2-12 00:00: 00 Yes 1mg Top[facility] Brown ATORVASTATI N CALCIUM 40 MG TABS 2022-07 2-12 00:00: 00 Yes Top[facility] Brown TAKE 1 TABLET AT BEDTIME. 2022-07 2- 00:00: 00 11-14 00:00 :00 No 15 [facility] Brown TAKE 1 TABLET ONCE DAILY. 2022-07 2- 00:00: 00 11-14 00:00 :00 No 10 Top[facility] Brown TAKE 1 TABLET 3 TIMES DAILY. 2022-07 2- 00:00: 00 11-14 00:00 :00 No 750 Top[facility] Brown TAKE 1 TABLET ONCE WEEKLY. 2022-07 00:00: 00 11-14 00:00 :00 No 70 [facility] Brown DOXYCYCLINE HYCLATE 100 MG TABS 03-02 00:00: 00 Yes Top[facility] Brown TAKE 1 CAPSULE EVERY 12 HOURS UNTIL GONE. 03-02 00:00: 00 11-14 00:00 :00 No 100 [facility] Brown atorvastati n 40 mg tablet 02-21 00:00: 00 Yes 1mg [facility] Brown MIRTAZAPINE 15 MG TABS 02-21 00:00: 00 Yes Top[facility] Brown TAKE 1 TABLET BY MOUTH TWICE A DAY 02-21 00:00: 00 11-14 00:00 :00 No 500 [facility] Brown TAKE 1 CAPSULE 3 TIMES DAILY. 02-21 00:00: 00 11-14 00:00 :00 No 300 Top[facility] Brown TAKE 1 TABLET 3 TIMES DAILY. 02-21 00:00: 00 11-14 00:00 :00 No 750 Top[facility] Brown TAKE 1 TABLET ONCE WEEKLY. 02-21 00:00: 00 11-14 00:00 :00 No 70 Top[facility] Brown FELODIPINE ER 10 MG TB24 02-21 00:00: 00 11-14 00:00 :00 No Top[facility] Brown TAKE 1 CAPSULE WEEKLY. 02-21 00:00: 00 11-14 00:00 :00 No [id number] 0 [facility] Brown traMADOL (ULTRAM) 50 mg tablet 12-29 09:09: 30 Yes 50mg Take 1 tablet by mouth every 6 (six) hours as needed. [facility] FLUoxetine 20 mg capsule 12-29 09:09: 30 Yes 20mg Take 1 capsule by mouth in the morning. [facility] mirtazapine (REMERON ORAL) 12-29 09:09: 30 Yes 15mg Take 15 mg by mouth every evening. [facility] metFORMIN 500 mg tablet 12-29 09:09: 30 Yes 500mg Take 1 tablet by mouth in the morning and 1 tablet in the evening. Take with meals. [facility] methocarbam oL 750 mg tablet 12-29 09:09: 30 Yes 750mg Take 1 tablet by mouth in the morning and 1 tablet at noon and 1 tablet in the evening. [facility] MIRTAZAPINE 15 MG TABS 11-22 00:00: 00 Yes [facility] METFORMIN HYDROCHLORI DE 500 MG TABS 11-22 00:00: 00 Yes Top[facility] Brown GABAPENTIN 300 MG 11-22 00:00: 00 Yes Top[facility] Brown TAKE 1 TABLET 3 TIMES DAILY. 11-22 00:00: 00 11-14 00:00 :00 No 750 Top[facility] Brown TAKE 1 TABLET ONCE WEEKLY. 11-22 00:00: 00 11-14 00:00 :00 No 70 [facility] Brown TAKE 1 CAPSULE WEEKLY. 11-22 00:00: 00 11-14 00:00 :00 No [id number] 0 [facility] Brown FELODIPINE ER 10 MG TB24 11-22 00:00: 00 11-14 00:00 :00 No [facility] Brown ALENDRONATE SODIUM 70 MG TABS 5- 00:00: 00 Yes Top[facility] Brown TAKE 1 CAPSULE WEEKLY. - 00:00: 00 11-14 00:00 :00 No [id number] 0 [facility] Brown TAKE 1 TABLET ONCE WEEKLY. - 00:00: 00 11-14 00:00 :00 No 70 Top[facility] Brown ATORVASTATI N CALCIUM 40 MG TABS - 00:00: 00 Yes Top[facility] Brown METFORMIN HYDROCHLORI DE 500 MG TABS 09-06 00:00: 00 Yes Top[facility] Brown MIRTAZAPINE 15 MG TABS 09-06 00:00: 00 Yes Top[facility] Brown TAKE 1 TABLET ONCE DAILY. 09-06 00:00: 00 11-14 00:00 :00 No 10 [facility] Brown CLINDAMYCIN HCL 150 MG 08-30 00:00: 00 Yes Top[facility] Brown TAKE 1 CAPSULE WEEKLY. 08-24 00:00: 00 11-14 00:00 :00 No [id number] [facility] Brown TAKE 1 TABLET 3 TIMES DAILY. 08-24 00:00: 00 11-14 00:00 :00 No 750 Top[facility] Brown TAKE 1 CAPSULE 3 TIMES DAILY. 08-24 00:00: 00 11-14 00:00 :00 No 300 Topher Brwon TAKE 1 TABLET 3 TIMES DAILY NEEDED. 2021-07 00:00: 00 11-14 00:00 :00 No [facility] Brown Dose Unknown 2021-07 00:00: 00 Yes [facility] Brown FELODIPINE ER 10 MG TB24 2021-07 00:00: 00 11-14 00:00 :00 No [facility] Brown IBUPROFEN 800 MG TABS 2021-07 00:00: 00 11-14 00:00 :00 No 800 [facility] Brown CYCLOBENZAP RINE HYDROCHLORI DE 10 MG TABS 2021-07 00:00: 00 11-14 00:00 :00 No [facility] Brown DICLOFENAC SODIUM DR 75 MG TBEC 2021-07 2 00:00: 00 Yes 75 Top[facility] Brown TRAMADOL HYDROCHLORI DE/ACETAMIN OPHE N 37.5-325 MG TABS 2021-07 2 00:00: 00 Yes Top[facility] Brown METFORMIN HYDROCHLORI DE 500 MG TABS 2021-07 2 00:00: 00 Yes Top[facility] Brown ATORVASTATI N CALCIUM 40 MG TABS 2021-07 00:00: 00 Yes Top[facility] Brown GABAPENTIN 300 MG 2021-07 00:00: 00 Yes Top[facility] Brown TAKE 1 TABLET AT BEDTIME. 2021-07 00:00: 00 11-14 00:00 :00 No 15 [facility] Brown TAKE 1 CAPSULE WEEKLY. 2021-07 00:00: 00 11-14 00:00 :00 No [id number] [facility] FELODIPINE ER 10 MG TB24 2021-07 00:00: 00 11-14 00:00 :00 No [facility] Brown GABAPENTIN 300 MG 2021-07 00:00: 00 Yes Top[facility] Brown ATORVASTATI N CALCIUM 40 MG TABS 2021-07 0- 00:00: 00 Yes Top[facility] Brown METFORMIN HYDROCHLORI DE 500 MG TABS 2021-07 0-25 00:00: 00 Yes Top[facility] Brown TAKE 1 TABLET 3 TIMES DAILY. - 00:00: 00 11-14 00:00 :00 No [facility] Brown IBUPROFEN 800 MG TABS -23 00:00: 00 Yes Top[facility] Brown CYCLOBENZAP RINE HYDROCHLORI DE 5 MG TABS 9-15 00:00: 00 11-14 00:00 :00 No [facility] Brown PREDNISONE 20 MG TABS -22 00:00: 00 Yes [facility] Brown &lt 2-0 8-16 00:00: 00 Yes 5 [facility] Brown &lt 2-0 8-16 00:00: 00 No 5 &lt 2-0 8-16 00:00: 00 No 5 &lt 2-0 8-16 00:00: 00 No 5 &lt 2-0 8- 00:00: 00 No 5 &lt 2-0 8- 00:00: 00 No 5 &lt 2022-0 8- 00:00: 00 Yes 20 [facility] Brown &lt 2-0 8 00:00: 00 No 20 &lt 2022-0 8- 00:00: 00 No 20 &lt 2022-0 8- 00:00: 00 No 20 &lt 2-0 02-03 00:00: 00 No 20 &lt 2-0 02-03 00:00: 00 No 20 Dose Unknown 0 02-01 00:00: 00 Yes [facility] prednisone 20 mg tablet 02-01 00:00: 00 Yes 1mg Topher Brown metformin 500 mg tablet 02-01 00:00: 00 Yes 1mg Topher Brown TAKE 1 TABLET 3 TIMES DAILY. 02-01 00:00: 00 Yes [facility] Brown ibuprofen 800 mg tablet 02-01 00:00: 00 Yes 1mg Top[facility] Brown Remeron 15 mg tablet 02-01 00:00: 00 Yes 1mg Top[facility] Brown gabapentin 300 mg capsule 02-01 00:00: 00 Yes 1mg Topher Brown &lt 2021-0 02-01 00:00: 00 Yes 5 Topher Brown &lt 2021-0 02-01 00:00: 00 Yes 15 Top[facility] Brown felodipine ER 10 mg tablet,exte nded release 24 hr 02-01 00:00: 00 No 1mg prednisone 20 mg tablet 02-01 00:00: 00 No 1mg metformin 500 mg tablet 02-01 00:00: 00 No 1mg methocarbam ol 750 mg tablet 02-01 00:00: 00 No 1mg ibuprofen 800 mg tablet 02-01 00:00: 00 No 1mg Remeron 15 mg tablet 02-01 00:00: 00 No 1mg gabapentin 300 mg capsule 02-01 00:00: 00 No 1mg Dose Unknown 02-01 00:00: 00 No 10 &lt 2022-0 8- 00:00: 00 No 5 Dose Unknown 0 8 00:00: 00 No 500 &lt 2-0 8- 00:00: 00 No 15 felodipine ER 10 mg tablet,exte nded release 24 hr 0 8 00:00: 00 No 1mg prednisone 20 mg tablet 0 8 00:00: 00 No 1mg metformin 500 mg tablet 0 8 00:00: 00 No 1mg methocarbam ol 750 mg tablet 0 8 00:00: 00 No 1mg ibuprofen 800 mg tablet 0 8 00:00: 00 No 1mg Remeron 15 mg tablet 0 8 00:00: 00 No 1mg gabapentin 300 mg capsule 0 8 00:00: 00 No 1mg Dose Unknown 0 8 00:00: 00 No 10 &lt 2021-0 8- 00:00: 00 No 5 Dose Unknown 0 8 00:00: 00 No 500 &lt 2021-0 8 00:00: 00 No 15 felodipine ER 10 mg tablet,exte nded release 24 hr 0 02-01 00:00: 00 No 1mg prednisone 20 mg tablet 0 02-01 00:00: 00 No 1mg metformin 500 mg tablet 0 8 00:00: 00 No 1mg methocarbam ol 750 mg tablet 0 8 00:00: 00 No 1mg ibuprofen 800 mg tablet 0 02-01 00:00: 00 No 1mg Remeron 15 mg tablet 0 8 00:00: 00 No 1mg gabapentin 300 mg capsule 0 8 00:00: 00 No 1mg Dose Unknown 0 8 00:00: 00 No 10 &lt 2-0 8- 00:00: 00 No 5 Dose Unknown 0 8 00:00: 00 No 500 &lt 2-0 8- 00:00: 00 No 15 felodipine ER 10 mg tablet,exte nded release 24 hr 0 8 00:00: 00 No 1mg prednisone 20 mg tablet 2-0 8- 00:00: 00 No 1mg metformin 500 mg tablet 2-0 8 00:00: 00 No 1mg methocarbam ol 750 mg tablet 2-0 8 00:00: 00 No 1mg ibuprofen 800 mg tablet 2-0 8 00:00: 00 No 1mg Remeron 15 mg tablet 2-0 8 00:00: 00 No 1mg gabapentin 300 mg capsule 2-0 8 00:00: 00 No 1mg Dose Unknown 2-0 8 00:00: 00 No 10 &lt 2022-0 8- 00:00: 00 No 5 Dose Unknown 2-0 8 00:00: 00 No 500 &lt 2022-0 8 00:00: 00 No 15 Dose Unknown 2-0 8 00:00: 00 No prednisone 20 mg tablet 2-0 8 00:00: 00 No 1mg metformin 500 mg tablet 2-0 8 00:00: 00 No 1mg methocarbam ol 750 mg tablet 2-0 02-01 00:00: 00 No 1mg ibuprofen 800 mg tablet 2-0 8 00:00: 00 No 1mg Remeron 15 mg tablet 2-0 02-01 00:00: 00 No 1mg gabapentin 300 mg capsule 2021-0 02-01 00:00: 00 No 1mg &lt 2022-0 8 00:00: 00 No 5 Dose Unknown 2-0 8 00:00: 00 No 500 &lt 2022-0 8 00:00: 00 No 15 Dose Unknown 2022-0 8 00:00: 00 Yes 20 Topher F Kevin &lt 2022-0 8- 00:00: 00 Yes 500 Topher F Kevin Dose Unknown 2-0 8- 00:00: 00 Yes 300 Topher F Kevin Dose Unknown 2-0 8 00:00: 00 No 20 &lt 2022-0 8- 00:00: 00 No 500 Dose Unknown 2022-0 8- 00:00: 00 No 300 Dose Unknown 2022-0 8- 00:00: 00 No 20 &lt 2022-0 8- 00:00: 00 No 500 Dose Unknown 2022-0 8- 00:00: 00 No 300 Dose Unknown 2022-0 8- 00:00: 00 No 20 &lt 2022-0 8- 00:00: 00 No 500 Dose Unknown 2022-0 8- 00:00: 00 No 300 Dose Unknown 2022-0 8- 00:00: 00 No 20 &lt 2022-0 8- 00:00: 00 No 500 Dose Unknown 2022-0 8- 00:00: 00 No 300 Dose Unknown 2022-0 8- 00:00: 00 No 20 &lt 2022-0 8- 00:00: 00 No 500 Dose Unknown 2022-0 8- 00:00: 00 No 300 &lt 2022-0 7-25 00:00: 00 Yes 300 Topher F Kevin &lt 2022-0 7- 00:00: 00 Yes 15 Topher F Kevin &lt 2022-0 7- 00:00: 00 Yes 20 Topher F Kevin Dose Unknown 2022-0 7- 00:00: 00 Yes 70 Topher F Kevin &lt 2022-0 7- 00:00: 00 No 300 &lt 2022-0 7- 00:00: 00 No 15 &lt 2022-0 7-25 00:00: 00 No 20 Dose Unknown 2022-0 7-25 00:00: 00 No 70 &lt 2022-0 7- 00:00: 00 No 300 &lt 2022-0 7- 00:00: 00 No 15 &lt 2022-0 7-25 00:00: 00 No 20 Dose Unknown 2022-0 7-25 00:00: 00 No 70 &lt 2022-0 7- 00:00: 00 No 300 &lt 2022-0 7-25 00:00: 00 No 15 &lt 2022-0 7-25 00:00: 00 No 20 Dose Unknown 2022-0 7-25 00:00: 00 No 70 &lt 2022-0 7-25 00:00: 00 No 300 &lt 2022-0 7- 00:00: 00 No 15 &lt 2022-0 7-25 00:00: 00 No 20 Dose Unknown 2022-0 7-25 00:00: 00 No 70 &lt 2022-0 7- 00:00: 00 No 300 &lt 2022-0 7- 00:00: 00 No 15 &lt 2022-0 7- 00:00: 00 No 20 Dose Unknown 2022-0 7 00:00: 00 No 70 prednisone 20 mg tablet 2022-0 01-18 00:00: 00 Yes 1mg Topher Brown TAKE 1 TABLET 3 TIMES DAILY. 2021-0 01-18 00:00: 00 Yes Topher Brown cyclobenzap rine 10 mg tablet 2-0 01-18 00:00: 00 Yes 1mg Topher Brown &lt 2022-0 01-18 00:00: 00 Yes 300 Topher Brown &lt 2022-0 01-18 00:00: 00 Yes 15 Topher Brown Dose Unknown 2021-0 01-18 00:00: 00 Yes 10 Topher Brown &lt 2022-0 01-18 00:00: 00 Yes 800 Topher Cam Kevin &lt 2022-0 01-18 00:00: 00 Yes 75 Topher Brown prednisone 20 mg tablet 2-0 01-18 00:00: 00 No 1mg methocarbam ol 750 mg tablet 2-0 01-18 00:00: 00 No 1mg cyclobenzap rine 10 mg tablet 2-0 01-18 00:00: 00 No 1mg Dose Unknown 2021-0 01-18 00:00: 00 No 20 &lt 2022-0 01-18 00:00: 00 No 300 &lt 2022-0 01-18 00:00: 00 No 750 &lt 2022-0 01-18 00:00: 00 No 15 Dose Unknown 2022-0 01-18 00:00: 00 No 10 &lt 2022-0 01-18 00:00: 00 No 800 &lt 2022-0 7 00:00: 00 No 75 prednisone 20 mg tablet 2-0 01-18 00:00: 00 No 1mg methocarbam ol 750 mg tablet 2-0 01-18 00:00: 00 No 1mg cyclobenzap rine 10 mg tablet 2-0 01-18 00:00: 00 No 1mg Dose Unknown 2022-0 01-18 00:00: 00 No 20 &lt 2022-0 7-19 00:00: 00 No 300 &lt 2022-0 7-19 00:00: 00 No 750 &lt 2022-0 7-19 00:00: 00 No 15 Dose Unknown 2022-0 7-19 00:00: 00 No 10 &lt 2022-0 7-19 00:00: 00 No 800 &lt 2022-0 7-19 00:00: 00 No 75 prednisone 20 mg tablet 2022-0 7- 00:00: 00 No 1mg methocarbam ol 750 mg tablet 2022-0 7- 00:00: 00 No 1mg cyclobenzap rine 10 mg tablet 2022-0 7- 00:00: 00 No 1mg Dose Unknown 2022-0 7- 00:00: 00 No 20 &lt 2022-0 7-19 00:00: 00 No 300 &lt 2022-0 7- 00:00: 00 No 750 &lt 2022-0 7- 00:00: 00 No 15 Dose Unknown 2022-0 7- 00:00: 00 No 10 &lt 2022-0 7- 00:00: 00 No 800 &lt 2022-0 7- 00:00: 00 No 75 prednisone 20 mg tablet 2-0 7- 00:00: 00 No 1mg methocarbam ol 750 mg tablet 2-0 01-18 00:00: 00 No 1mg cyclobenzap rine 10 mg tablet 2021-0 7 00:00: 00 No 1mg Dose Unknown 2022-0 7- 00:00: 00 No 20 &lt 2022-0 7- 00:00: 00 No 300 &lt 2022-0 7- 00:00: 00 No 750 &lt 2022-0 7- 00:00: 00 No 15 Dose Unknown 2022-0 7- 00:00: 00 No 10 &lt 2022-0 7-19 00:00: 00 No 800 &lt 2022-0 7-19 00:00: 00 No 75 prednisone 20 mg tablet 2022-0 7- 00:00: 00 No 1mg methocarbam ol 750 mg tablet 2022-0 7- 00:00: 00 No 1mg cyclobenzap rine 10 mg tablet 2022-0 7- 00:00: 00 No 1mg Dose Unknown 2022-0 7- 00:00: 00 No 20 &lt 2022-0 7-19 00:00: 00 No 300 &lt 2022-0 7-19 00:00: 00 No 750 &lt 2022-0 7- 00:00: 00 No 15 Dose Unknown 2022-0 7- 00:00: 00 No 10 &lt 2022-0 7- 00:00: 00 No 800 &lt 2022-0 7- 00:00: 00 No 75 prednisone 20 mg tablet 2022-0 01-18 00:00: 00 No 1mg methocarbam ol 750 mg tablet 2022-0 01-18 00:00: 00 No 1mg cyclobenzap rine 10 mg tablet 2-0 - 00:00: 00 No 1mg Dose Unknown 2022-0 01-18 00:00: 00 No 20 &lt 2022-0 7- 00:00: 00 No 300 &lt 2022-0 7- 00:00: 00 No 750 &lt 2022-0 01-18 00:00: 00 No 15 Dose Unknown 2022-0 01-18 00:00: 00 No 10 &lt 2022-0 7- 00:00: 00 No 800 &lt 2022-0 7- 00:00: 00 No 75 methocarbam ol 750 mg tablet 2-0 01-04 00:00: 00 Yes 1mg Topher F Kevin &lt 2022-0 7- 00:00: 00 Yes 20 Topher F Kevin &lt 2022-0 7- 00:00: 00 Yes 20 Topher F Kevin Dose Unknown 2022-0 7- 00:00: 00 Yes 300 Topher F Kevin &lt 2022-0 7- 00:00: 00 Yes 15 Topher F Kevin &lt 2022-0 7- 00:00: 00 Yes 800 Topher F Kevin &lt 2022-0 7- 00:00: 00 Yes 10 Topher F Kevin Dose Unknown 2022-0 7- 00:00: 00 Yes 70 Topher F Kevin &lt 2022-0 7- 00:00: 00 Yes 50 Topher F Kevin Dose Unknown 2022-0 7- 00:00: 00 Yes 500 Topher F Kevin methocarbam ol 750 mg tablet 2022-0 7-05 00:00: 00 No 1mg &lt 2022-0 7-05 00:00: 00 No 20 &lt 2022-0 7-05 00:00: 00 No 20 Dose Unknown 2022-0 7-05 00:00: 00 No 300 &lt 2022-0 7-05 00:00: 00 No 15 &lt 2022-0 7-05 00:00: 00 No 800 &lt 2022-0 7-05 00:00: 00 No 10 Dose Unknown 2022-0 7-05 00:00: 00 No 70 &lt 2022-0 7-05 00:00: 00 No 50 Dose Unknown 2022-0 7-05 00:00: 00 No 500 methocarbam ol 750 mg tablet 2022-0 7-05 00:00: 00 No 1mg &lt 2022-0 7-05 00:00: 00 No 20 &lt 2022-0 7-05 00:00: 00 No 20 Dose Unknown 2022-0 7-05 00:00: 00 No 300 &lt 2022-0 7-05 00:00: 00 No 15 &lt 2022-0 7-05 00:00: 00 No 800 &lt 2022-0 7-05 00:00: 00 No 10 Dose Unknown 2022-0 7-05 00:00: 00 No 70 &lt 2022-0 7-05 00:00: 00 No 50 Dose Unknown 2022-0 7-05 00:00: 00 No 500 methocarbam ol 750 mg tablet 2022-0 7-05 00:00: 00 No 1mg &lt 2022-0 7-05 00:00: 00 No 20 &lt 2022-0 7-05 00:00: 00 No 20 Dose Unknown 2022-0 7-05 00:00: 00 No 300 &lt 2022-0 7-05 00:00: 00 No 15 &lt 2022-0 7-05 00:00: 00 No 800 &lt 2022-0 7-05 00:00: 00 No 10 Dose Unknown 2022-0 7-05 00:00: 00 No 70 &lt 2022-0 7-05 00:00: 00 No 50 Dose Unknown 2022-0 7-05 00:00: 00 No 500 methocarbam ol 750 mg tablet 2022-0 7-05 00:00: 00 No 1mg &lt 2022-0 7-05 00:00: 00 No 20 &lt 2022-0 7-05 00:00: 00 No 20 Dose Unknown 2022-0 7-05 00:00: 00 No 300 &lt 2022-0 7-05 00:00: 00 No 15 &lt 2022-0 7-05 00:00: 00 No 800 &lt 2022-0 7-05 00:00: 00 No 10 Dose Unknown 2022-0 7-05 00:00: 00 No 70 &lt 2022-0 7-05 00:00: 00 No 50 Dose Unknown 2022-0 7-05 00:00: 00 No 500 methocarbam ol 750 mg tablet 2022-0 7-05 00:00: 00 No 1mg &lt 2022-0 7-05 00:00: 00 No 20 &lt 2022-0 7-05 00:00: 00 No 20 Dose Unknown 2022-0 7-05 00:00: 00 No 300 &lt 2022-0 7-05 00:00: 00 No 15 &lt 2022-0 7-05 00:00: 00 No 800 &lt 2022-0 7-05 00:00: 00 No 10 Dose Unknown 2022-0 7-05 00:00: 00 No 70 &lt 2022-0 7-05 00:00: 00 No 50 Dose Unknown 2022-0 7-05 00:00: 00 No 500 methocarbam ol 750 mg tablet 2022-0 7-05 00:00: 00 No 1mg &lt 2022-0 7-05 00:00: 00 No 20 &lt 2022-0 7-05 00:00: 00 No 20 Dose Unknown 2022-0 7-05 00:00: 00 No 300 &lt 2022-0 7-05 00:00: 00 No 15 &lt 2022-0 7-05 00:00: 00 No 800 &lt 2022-0 7-05 00:00: 00 No 10 Dose Unknown 2022-0 7-05 00:00: 00 No 70 &lt 2022-0 7-05 00:00: 00 No 50 Dose Unknown 2022-0 7-05 00:00: 00 No 500 &lt 2022-0 7- 00:00: 00 Yes Topher Brown &lt 2022-0 7- 00:00: 00 No &lt 2022-0 7- 00:00: 00 No &lt 2022-0 7- 00:00: 00 No &lt 2022-0 7- 00:00: 00 No &lt 2022-0 7- 00:00: 00 No &lt 2022-0 7- 00:00: 00 No &lt 2022-0 6-30 00:00: 00 Yes Topher Brown &lt 2022-0 6- 00:00: 00 No &lt 2022-0 6-30 00:00: 00 No &lt 2022-0 6-30 00:00: 00 No &lt 2022-0 6-30 00:00: 00 No &lt 2022-0 6-30 00:00: 00 No &lt 2022-0 6-30 00:00: 00 No prednisone 20 mg tablet 2022-0 6-22 00:00: 00 Yes 1mg Topher Brown cyclobenzap rine 10 mg tablet 2022-0 6-22 00:00: 00 Yes 1mg Topher Brown &lt 2022-0 6- 00:00: 00 Yes Topher Brown &lt 2022-0 6- 00:00: 00 Yes Topher Brown prednisone 20 mg tablet 2022-0 6-22 00:00: 00 No 1mg cyclobenzap rine 10 mg tablet 2022-0 6-22 00:00: 00 No 1mg &lt 2022-0 6-22 00:00: 00 No &lt 2022-0 6-22 00:00: 00 No prednisone 20 mg tablet 2022-0 6-22 00:00: 00 No 1mg cyclobenzap rine 10 mg tablet 2022-0 6-22 00:00: 00 No 1mg &lt 2022-0 6-22 00:00: 00 No &lt 2022-0 6-22 00:00: 00 No prednisone 20 mg tablet 2022-0 6-22 00:00: 00 No 1mg cyclobenzap rine 10 mg tablet 2022-0 6-22 00:00: 00 No 1mg &lt 2022-0 6-22 00:00: 00 No &lt 2-0 12-22 00:00: 00 No prednisone 20 mg tablet 0 12-22 00:00: 00 No 1mg cyclobenzap rine 10 mg tablet 12-22 00:00: 00 No 1mg &lt 2021-0 12-22 00:00: 00 No &lt 2-0 12-22 00:00: 00 No prednisone 20 mg tablet 0 12-22 00:00: 00 No 1mg cyclobenzap rine 10 mg tablet 12-22 00:00: 00 No 1mg &lt 0 12-22 00:00: 00 No &lt 20 12-22 00:00: 00 No prednisone 20 mg tablet 12-22 00:00: 00 No 1mg cyclobenzap rine 10 mg tablet 12-22 00:00: 00 No 1mg &lt 0 12-22 00:00: 00 No &lt 0 12-22 00:00: 00 No cyclobenzap rine (FLEXERIL) tablet 10 mg 12-18 02:45: 00 12-18 02:34 :00 No 10mg 10 mg, Oral, ONCE, 1 dose, On Mon12/17/21 at 2145, Routine [facility] ketorolac (TORADOL) injection 30 mg 12-18 02:30: 00 12-18 02:34 :00 No 30mg 30 mg, Intramuscu lar, ONCE, 1 dose, On Mon12/17/21 at 2130, Routine [facility] NAPROXEN SODIUM (ALEVE ORAL) 12-17 20:23: 10 12-17 00:00 :00 No Take by mouth daily. [facility] diclofenac 75 mg EC tablet 12-17 20:23: 10 12-17 00:00 :00 No 75mg Take 75 mg by mouth 2 (two) times daily with meals. [facility] traMADoL-ac etaminophen (ULTRACET) 37.5-325 mg per tablet 2022-0 6-17 00:00: 00 12-25 04:59 :00 No 4647 1{tbl} Take 1 tablet by mouth every 6 (six) hours as needed for Pain for up to 7 days. Indication s: acute pain [facility] TAKE 1 TABLET BY MOUTH EVERY DAY 0 12-14 00:00: 00 Yes Topher Brown Dose Unknown 0 12-14 00:00: 00 Yes Topher Brown TAKE 1 TABLET BY MOUTH EVERY DAY 0 12-14 00:00: 00 No Dose Unknown 0 12-14 00:00: 00 No TAKE 1 TABLET BY MOUTH EVERY DAY 0 12-14 00:00: 00 No Dose Unknown 0 12-14 00:00: 00 No TAKE 1 TABLET BY MOUTH EVERY DAY 0 12-14 00:00: 00 No Dose Unknown 0 12-14 00:00: 00 No TAKE 1 TABLET BY MOUTH EVERY DAY 2021-0 12-14 00:00: 00 No Dose Unknown 0 12-14 00:00: 00 No TAKE 1 TABLET BY MOUTH EVERY DAY 0 12-14 00:00: 00 No Dose Unknown 0 12-14 00:00: 00 No TAKE 1 TABLET BY MOUTH EVERY DAY 0 12-14 00:00: 00 No Dose Unknown 0 12-14 00:00: 00 No &lt 2022-0 12-13 00:00: 00 Yes Topher Brown &lt 2021-0 6 00:00: 00 No &lt 2022-0 6 00:00: 00 No &lt 2022-0 6 00:00: 00 No &lt 2022-0 6 00:00: 00 No &lt 2022-0 6 00:00: 00 No &lt 2022-0 12-13 00:00: 00 No Dose Unknown 2021-0 12-08 00:00: 00 Yes Topher Brown &lt 2022-0 12-08 00:00: 00 Yes Topher Brown Dose Unknown 2021-0 12-08 00:00: 00 No &lt 2022-0 12-08 00:00: 00 No Dose Unknown 2-0 12-08 00:00: 00 No &lt 2022-0 6-08 00:00: 00 No Dose Unknown 2022-0 6-08 00:00: 00 No &lt 2022-0 6-08 00:00: 00 No Dose Unknown 2022-0 6-08 00:00: 00 No &lt 2022-0 6-08 00:00: 00 No Dose Unknown 2022-0 6-08 00:00: 00 No &lt 2022-0 6-08 00:00: 00 No Dose Unknown 2022-0 6-08 00:00: 00 No &lt 2022-0 6-08 00:00: 00 No Dose Unknown 2022-0 6- 00:00: 00 Yes Topher Brown Dose Unknown 2022-0 6- 00:00: 00 No Dose Unknown 2022-0 6- 00:00: 00 No Dose Unknown 2022-0 6- 00:00: 00 No Dose Unknown 2022-0 6- 00:00: 00 No Dose Unknown 2022-0 6- 00:00: 00 No Dose Unknown 2022-0 6- 00:00: 00 No &lt 2022-0 6-02 00:00: 00 Yes Topher Brown &lt 2022-0 6-02 00:00: 00 No &lt 2022-0 6-02 00:00: 00 No &lt 2022-0 6-02 00:00: 00 No &lt 2022-0 6-02 00:00: 00 No &lt 2022-0 6-02 00:00: 00 No &lt 2022-0 6-02 00:00: 00 No Remeron 15 mg tablet 2022-0 5-31 00:00: 00 Yes 1mg Topher Cam Kevin &lt 2022-0 5- 00:00: 00 Yes Topher Tutu Kevin &lt 2022-0 5- 00:00: 00 Yes Topher F Kevin &lt 2022-0 5-31 00:00: 00 Yes Topher Brown Dose Unknown 2022-0 5-31 00:00: 00 Yes Topher Brown Remeron 15 mg tablet 2022-0 5- 00:00: 00 No 1mg &lt 2022-0 5-31 00:00: 00 No &lt 2022-0 5-31 00:00: 00 No &lt 2022-0 5-31 00:00: 00 No Dose Unknown 2022-0 5-31 00:00: 00 No Remeron 15 mg tablet 2022-0 5-31 00:00: 00 No 1mg &lt 2022-0 5-31 00:00: 00 No &lt 2022-0 5-31 00:00: 00 No &lt 2022-0 5-31 00:00: 00 No Dose Unknown 2022-0 5-31 00:00: 00 No Remeron 15 mg tablet 2022-0 5-31 00:00: 00 No 1mg &lt 2022-0 5-31 00:00: 00 No &lt 2022-0 5-31 00:00: 00 No &lt 2022-0 5-31 00:00: 00 No Dose Unknown 2022-0 5-31 00:00: 00 No Remeron 15 mg tablet 2022-0 5- 00:00: 00 No 1mg &lt 2022-0 5-31 00:00: 00 No &lt 2022-0 5- 00:00: 00 No &lt 2022-0 5- 00:00: 00 No Dose Unknown 2022-0 5-31 00:00: 00 No Remeron 15 mg tablet 2022-0 5-31 00:00: 00 No 1mg &lt 2022-0 5-31 00:00: 00 No &lt 2022-0 5- 00:00: 00 No &lt 2022-0 5- 00:00: 00 No Dose Unknown 2022-0 5- 00:00: 00 No Remeron 15 mg tablet 2022-0 5-31 00:00: 00 No 1mg &lt 2022-0 5-31 00:00: 00 No &lt 2022-0 5-31 00:00: 00 No &lt 2022-0 5-31 00:00: 00 No Dose Unknown 2022-0 5-31 00:00: 00 No felodipine ER 10 mg tablet,exte nded release 24 hr 2-0 5-21 00:00: 00 Yes 1mg Topher Brown Protonix 40 mg tablet,kelin yed release 2-0 -21 00:00: 00 Yes 1mg Topher Brown metformin 500 mg tablet 11-20 00:00: 00 Yes 1mg Topher Brown Dose Unknown 11-20 00:00: 00 Yes Topher Brown ibuprofen 800 mg tablet 11-20 00:00: 00 Yes 1mg Topher Brown cyclobenzap rine 5 mg tablet 11-20 00:00: 00 Yes 1mg Topher Brown alendronate 70 mg tablet 11-20 00:00: 00 Yes 1mg Topher Brown potassium chloride ER 10 mEq tablet,exte nded release 11-20 00:00: 00 Yes 1mEq Topher Brown PANTOPRAZOL E SODIUM 40 MG TBEC 11-20 00:00: 00 Yes Topher Brown felodipine ER 10 mg tablet,exte nded release 24 hr 11-20 00:00: 00 No 1mg Protonix 40 mg tablet,kelin yed release 11-20 00:00: 00 No 1mg metformin 500 mg tablet 11-20 00:00: 00 No 1mg atorvastati n 40 mg tablet 11-20 00:00: 00 No 1mg ibuprofen 800 mg tablet 11-20 00:00: 00 No 1mg cyclobenzap rine 5 mg tablet 11-20 00:00: 00 No 1mg alendronate 70 mg tablet 11-20 00:00: 00 No 1mg potassium chloride ER 10 mEq tablet,exte nded release 11-20 00:00: 00 No 1mEq felodipine ER 10 mg tablet,exte nded release 24 hr 11-20 00:00: 00 No 1mg Protonix 40 mg tablet,kelin yed release 11-20 00:00: 00 No 1mg metformin 500 mg tablet 11-20 00:00: 00 No 1mg atorvastati n 40 mg tablet 11-20 00:00: 00 No 1mg ibuprofen 800 mg tablet 11-20 00:00: 00 No 1mg cyclobenzap rine 5 mg tablet 11-20 00:00: 00 No 1mg alendronate 70 mg tablet 11-20 00:00: 00 No 1mg potassium chloride ER 10 mEq tablet,exte nded release 11-20 00:00: 00 No 1mEq felodipine ER 10 mg tablet,exte nded release 24 hr 11-20 00:00: 00 No 1mg Protonix 40 mg tablet,kelin yed release 11-20 00:00: 00 No 1mg metformin 500 mg tablet 11-20 00:00: 00 No 1mg atorvastati n 40 mg tablet 11-20 00:00: 00 No 1mg ibuprofen 800 mg tablet 11-20 00:00: 00 No 1mg cyclobenzap rine 5 mg tablet 11-20 00:00: 00 No 1mg alendronate 70 mg tablet 11-20 00:00: 00 No 1mg potassium chloride ER 10 mEq tablet,exte nded release 11-20 00:00: 00 No 1mEq felodipine ER 10 mg tablet,exte nded release 24 hr 11-20 00:00: 00 No 1mg Protonix 40 mg tablet,kelin yed release 11-20 00:00: 00 No 1mg metformin 500 mg tablet 11-20 00:00: 00 No 1mg atorvastati n 40 mg tablet 11-20 00:00: 00 No 1mg ibuprofen 800 mg tablet 11-20 00:00: 00 No 1mg cyclobenzap rine 5 mg tablet 11-20 00:00: 00 No 1mg alendronate 70 mg tablet 11-20 00:00: 00 No 1mg potassium chloride ER 10 mEq tablet,exte nded release 11-20 00:00: 00 No 1mEq felodipine ER 10 mg tablet,exte nded release 24 hr 11-20 00:00: 00 No 1mg Protonix 40 mg tablet,kelin yed release 11-20 00:00: 00 No 1mg metformin 500 mg tablet 11-20 00:00: 00 No 1mg atorvastati n 40 mg tablet 0 - 00:00: 00 No 1mg ibuprofen 800 mg tablet 0 - 00:00: 00 No 1mg cyclobenzap rine 5 mg tablet 0 - 00:00: 00 No 1mg alendronate 70 mg tablet 0 11-20 00:00: 00 No 1mg potassium chloride ER 10 mEq tablet,exte nded release 0 11-20 00:00: 00 No 1mEq felodipine ER 10 mg tablet,exte nded release 24 hr 11-20 00:00: 00 No 1mg Protonix 40 mg tablet,kelin yed release 11-20 00:00: 00 No 1mg metformin 500 mg tablet 11-20 00:00: 00 No 1mg atorvastati n 40 mg tablet 11-20 00:00: 00 No 1mg ibuprofen 800 mg tablet 11-20 00:00: 00 No 1mg cyclobenzap rine 5 mg tablet 11-20 00:00: 00 No 1mg alendronate 70 mg tablet 11-20 00:00: 00 No 1mg potassium chloride ER 10 mEq tablet,exte nded release 11-20 00:00: 00 No 1mEq Dose Unknown 11-19 00:00: 00 Yes Topher Brown atorvastati n 20 mg tablet 0 - 00:00: 00 No 1mg atorvastati n 20 mg tablet 0 20 00:00: 00 No 1mg atorvastati n 20 mg tablet 0 20 00:00: 00 No 1mg atorvastati n 20 mg tablet 0 -20 00:00: 00 No 1mg atorvastati n 20 mg tablet 0 -20 00:00: 00 No 1mg atorvastati n 20 mg tablet 0 20 00:00: 00 No 1mg Remeron 15 mg tablet 0 - 00:00: 00 Yes 1mg Topher Brown gabapentin 300 mg capsule 0 - 00:00: 00 Yes 1mg Topher Brown Remeron 15 mg tablet 0 10-28 00:00: 00 No 1mg gabapentin 300 mg capsule 0 10-28 00:00: 00 No 1mg Remeron 15 mg tablet 0 10-28 00:00: 00 No 1mg gabapentin 300 mg capsule 0 10-28 00:00: 00 No 1mg Remeron 15 mg tablet 0 10-28 00:00: 00 No 1mg gabapentin 300 mg capsule 0 10-28 00:00: 00 No 1mg Remeron 15 mg tablet 0 10-28 00:00: 00 No 1mg gabapentin 300 mg capsule 0 10-28 00:00: 00 No 1mg Remeron 15 mg tablet 0 10-28 00:00: 00 No 1mg gabapentin 300 mg capsule 0 10-28 00:00: 00 No 1mg Remeron 15 mg tablet 0 10-28 00:00: 00 No 1mg gabapentin 300 mg capsule 0 10-28 00:00: 00 No 1mg felodipine ER 10 mg tablet,exte nded release 24 hr 0 10-26 00:00: 00 Yes 1mg Topher Brown cyclobenzap rine 5 mg tablet 0 10-26 00:00: 00 Yes 1mg Topher Brown ibuprofen 800 mg tablet 0 10-26 00:00: 00 Yes 1mg Topher Brown felodipine ER 10 mg tablet,exte nded release 24 hr 0 10-26 00:00: 00 No 1mg cyclobenzap rine 5 mg tablet 0 10-26 00:00: 00 No 1mg ibuprofen 800 mg tablet 0 10-26 00:00: 00 No 1mg felodipine ER 10 mg tablet,exte nded release 24 hr 0 10-26 00:00: 00 No 1mg cyclobenzap rine 5 mg tablet 0 10-26 00:00: 00 No 1mg ibuprofen 800 mg tablet 0 10-26 00:00: 00 No 1mg felodipine ER 10 mg tablet,exte nded release 24 hr 0 10-26 00:00: 00 No 1mg cyclobenzap rine 5 mg tablet 2022-0 4-26 00:00: 00 No 1mg ibuprofen 800 mg tablet 2-0 4-26 00:00: 00 No 1mg felodipine ER 10 mg tablet,exte nded release 24 hr 2-0 4-26 00:00: 00 No 1mg cyclobenzap rine 5 mg tablet 2-0 4-26 00:00: 00 No 1mg ibuprofen 800 mg tablet 2-0 4- 00:00: 00 No 1mg felodipine ER 10 mg tablet,exte nded release 24 hr 2-0 4- 00:00: 00 No 1mg cyclobenzap rine 5 mg tablet 2-0 4- 00:00: 00 No 1mg ibuprofen 800 mg tablet 2-0 4- 00:00: 00 No 1mg felodipine ER 10 mg tablet,exte nded release 24 hr 2-0 4- 00:00: 00 No 1mg cyclobenzap rine 5 mg tablet 2-0 4- 00:00: 00 No 1mg ibuprofen 800 mg tablet 2021-0 4-26 00:00: 00 No 1mg Dose Unknown 2022-0 3-31 00:00: 00 Yes Topher Brown Dose Unknown 2022-0 3-31 00:00: 00 Yes Topher Brown Dose Unknown 2022-0 3-31 00:00: 00 Yes Topher Brown Dose Unknown 2022-0 3-31 00:00: 00 Yes Topher Brown Dose Unknown 2022-0 3-31 00:00: 00 Yes Topher Brwon Dose Unknown 2022-0 3-31 00:00: 00 No Dose Unknown 2022-0 3-31 00:00: 00 No Dose Unknown 2022-0 3-31 00:00: 00 No Dose Unknown 2022-0 3-31 00:00: 00 No Dose Unknown 2022-0 3-31 00:00: 00 No Dose Unknown 2022-0 3-31 00:00: 00 No Dose Unknown 2022-0 3-31 00:00: 00 No Dose Unknown 2022-0 3-31 00:00: 00 No Dose Unknown 2022-0 3-31 00:00: 00 No Dose Unknown 2022-0 3-31 00:00: 00 No Dose Unknown 2022-0 3-31 00:00: 00 No Dose Unknown 2022-0 3-31 00:00: 00 No Dose Unknown 2022-0 3-31 00:00: 00 No Dose Unknown 2022-0 3-31 00:00: 00 No Dose Unknown 2022-0 3-31 00:00: 00 No Dose Unknown 2022-0 3-31 00:00: 00 No Dose Unknown 2022-0 3-31 00:00: 00 No Dose Unknown 2022-0 3-31 00:00: 00 No Dose Unknown 2022-0 3-31 00:00: 00 No Dose Unknown 2022-0 3-31 00:00: 00 No Dose Unknown 2022-0 3-31 00:00: 00 No Dose Unknown 2022-0 3-31 00:00: 00 No Dose Unknown 2022-0 3-31 00:00: 00 No Dose Unknown 2022-0 3-31 00:00: 00 No Dose Unknown 2022-0 3-31 00:00: 00 No Dose Unknown 2022-0 3-31 00:00: 00 No Dose Unknown 2022-0 3-31 00:00: 00 No Dose Unknown 2022-0 3-31 00:00: 00 No Dose Unknown 2022-0 3-31 00:00: 00 No Dose Unknown 2022-0 3-31 00:00: 00 No Dose Unknown 2022-0 3-15 00:00: 00 Yes Topher Brown Dose Unknown 2022-0 3-15 00:00: 00 Yes Topher Brown Dose Unknown 2022-0 3-15 00:00: 00 Yes Topher Brown Dose Unknown 2022-0 3-15 00:00: 00 No Dose Unknown 2022-0 3-15 00:00: 00 No Dose Unknown 2022-0 3-15 00:00: 00 No Dose Unknown 2022-0 3-15 00:00: 00 No Dose Unknown 2022-0 3-15 00:00: 00 No Dose Unknown 2022-0 3-15 00:00: 00 No Dose Unknown 2022-0 3-15 00:00: 00 No Dose Unknown 2022-0 3-15 00:00: 00 No Dose Unknown 2022-0 3-15 00:00: 00 No Dose Unknown 2022-0 3-15 00:00: 00 No Dose Unknown 0 3-15 00:00: 00 No Dose Unknown 0 3-15 00:00: 00 No Dose Unknown 0 3-15 00:00: 00 No Dose Unknown 0 3-15 00:00: 00 No Dose Unknown 0 3-15 00:00: 00 No Dose Unknown 0 3-15 00:00: 00 No Dose Unknown 0 3-15 00:00: 00 No Dose Unknown 0 3-15 00:00: 00 No Protonix 40 mg tablet,kelin yed release 0 3-05 00:00: 00 Yes 1mg Topher Brown ibuprofen 800 mg tablet 0 3-05 00:00: 00 Yes 1mg Topher Brown cyclobenzap rine 5 mg tablet 0 3-05 00:00: 00 Yes 1mg Topher Brown Dose Unknown 0 3-05 00:00: 00 Yes 800 Topher Brown PANTOPRAZOL E SODIUM 40 MG [facility] 0 3-05 00:00: 00 Yes Topher Brown Protonix 40 mg tablet,kelin yed release 0 3-05 00:00: 00 No 1mg ibuprofen 800 mg tablet 2021-0 3-05 00:00: 00 No 1mg cyclobenzap rine 5 mg tablet 0 3-05 00:00: 00 No 1mg Protonix 40 mg tablet,kelin yed release 2021-0 3-05 00:00: 00 No 1mg ibuprofen 800 mg tablet 2021-0 3-05 00:00: 00 No 1mg cyclobenzap rine 5 mg tablet 2021-0 3-05 00:00: 00 No 1mg Protonix 40 mg tablet,kelin yed release 2021-0 3-05 00:00: 00 No 1mg ibuprofen 800 mg tablet 2021-0 3-05 00:00: 00 No 1mg cyclobenzap rine 5 mg tablet 2021-0 3-05 00:00: 00 No 1mg Protonix 40 mg tablet,kelin yed release 2021-0 3-05 00:00: 00 No 1mg ibuprofen 800 mg tablet 2021-0 3-05 00:00: 00 No 1mg cyclobenzap rine 5 mg tablet 2-0 3-05 00:00: 00 No 1mg Protonix 40 mg tablet,kelin yed release 2-0 3-05 00:00: 00 No 1mg ibuprofen 800 mg tablet 2-0 3-05 00:00: 00 No 1mg cyclobenzap rine 5 mg tablet 2-0 3-05 00:00: 00 No 1mg Protonix 40 mg tablet,kelin yed release 2-0 3-05 00:00: 00 No 1mg ibuprofen 800 mg tablet 2-0 3-05 00:00: 00 No 1mg cyclobenzap rine 5 mg tablet 2-0 3-05 00:00: 00 No 1mg Dose Unknown 2-0 3-03 00:00: 00 Yes Topher Brown Dose Unknown 2022-0 3-03 00:00: 00 Yes Topher Brown Dose Unknown 2022-0 3-03 00:00: 00 No Dose Unknown 2022-0 3-03 00:00: 00 No Dose Unknown 2022-0 3-03 00:00: 00 No Dose Unknown 2022-0 3-03 00:00: 00 No Dose Unknown 2022-0 3-03 00:00: 00 No Dose Unknown 2022-0 3-03 00:00: 00 No Dose Unknown 2022-0 3-03 00:00: 00 No Dose Unknown 2022-0 3-03 00:00: 00 No Dose Unknown 2022-0 3-03 00:00: 00 No Dose Unknown 2022-0 3-03 00:00: 00 No Dose Unknown 2022-0 3-03 00:00: 00 No Dose Unknown 2022-0 3-03 00:00: 00 No felodipine ER 10 mg tablet,exte nded release 24 hr 2021-0 1- 00:00: 00 Yes 1mg Topher Brown alendronate 70 mg tablet 2021-0 1- 00:00: 00 Yes 1mg Topher Brown atorvastati n 20 mg tablet 2021-0 - 00:00: 00 Yes 1mg Topher Brown felodipine ER 10 mg tablet,exte nded release 24 hr 2021-0 1- 00:00: 00 No 1mg alendronate 70 mg tablet 0 07-28 00:00: 00 No 1mg atorvastati n 20 mg tablet 0 07-28 00:00: 00 No 1mg felodipine ER 10 mg tablet,exte nded release 24 hr 0 07-28 00:00: 00 No 1mg alendronate 70 mg tablet 0 07-28 00:00: 00 No 1mg atorvastati n 20 mg tablet 0 07-28 00:00: 00 No 1mg felodipine ER 10 mg tablet,exte nded release 24 hr 07-28 00:00: 00 No 1mg alendronate 70 mg tablet 07-28 00:00: 00 No 1mg atorvastati n 20 mg tablet 07-28 00:00: 00 No 1mg felodipine ER 10 mg tablet,exte nded release 24 hr 07-28 00:00: 00 No 1mg alendronate 70 mg tablet 07-28 00:00: 00 No 1mg atorvastati n 20 mg tablet 07-28 00:00: 00 No 1mg felodipine ER 10 mg tablet,exte nded release 24 hr 07-28 00:00: 00 No 1mg alendronate 70 mg tablet 07-28 00:00: 00 No 1mg atorvastati n 20 mg tablet 07-28 00:00: 00 No 1mg felodipine ER 10 mg tablet,exte nded release 24 hr 07-28 00:00: 00 No 1mg alendronate 70 mg tablet 07-28 00:00: 00 No 1mg atorvastati n 20 mg tablet 07-28 00:00: 00 No 1mg Remeron 15 mg tablet 0 07-20 00:00: 00 Yes 1mg Topher Brown gabapentin 300 mg capsule 2021-0 -18 00:00: 00 Yes 1mg Topher Brown Remeron 15 mg tablet 0 07-20 00:00: 00 No 1mg gabapentin 300 mg capsule 2021-0 - 00:00: 00 No 1mg Remeron 15 mg tablet 2022-0 1-18 00:00: 00 No 1mg gabapentin 300 mg capsule 2-0 1-18 00:00: 00 No 1mg Remeron 15 mg tablet 2-0 1-18 00:00: 00 No 1mg gabapentin 300 mg capsule 2021-0 1-18 00:00: 00 No 1mg Remeron 15 mg tablet 2-0 1-18 00:00: 00 No 1mg gabapentin 300 mg capsule 2021-0 1-18 00:00: 00 No 1mg Remeron 15 mg tablet 2021-0 1-18 00:00: 00 No 1mg gabapentin 300 mg capsule 2021-0 1-18 00:00: 00 No 1mg Remeron 15 mg tablet 2-0 1-18 00:00: 00 No 1mg gabapentin 300 mg capsule 2021-0 1-18 00:00: 00 No 1mg Dose Unknown 2021-0 1-13 00:00: 00 Yes Topher Cam Kevin Dose Unknown 2021-0 1-13 00:00: 00 No Dose Unknown 2021-0 1-13 00:00: 00 No Dose Unknown 2021-0 1-13 00:00: 00 No Dose Unknown 2021-0 1-13 00:00: 00 No Dose Unknown 2021-0 1-13 00:00: 00 No Dose Unknown 2021-0 1-13 00:00: 00 No Dose Unknown 2020-07 2- 00:00: 00 Yes Topher Cam Kevin Dose Unknown 2020-07 2- 00:00: 00 Yes Topher Tutu Kevin Dose Unknown 2020-07 2- 00:00: 00 Yes Topher Tutu Kevin felodipine ER 10 mg tablet,exte nded release 24 hr 2020-07- 00:00: 00 No 1mg atorvastati n 20 mg tablet 2020-07 2- 00:00: 00 No 1mg Dose Unknown 2020-07 2- 00:00: 00 No felodipine ER 10 mg tablet,exte nded release 24 hr 2020-07 2- 00:00: 00 No 1mg atorvastati n 20 mg tablet 2020-07 2- 00:00: 00 No 1mg Dose Unknown 2020-07 2- 00:00: 00 No felodipine ER 10 mg tablet,exte nded release 24 hr 2020-07 2 00:00: 00 No 1mg atorvastati n 20 mg tablet 2020-07 2 00:00: 00 No 1mg Dose Unknown 2020-07 00:00: 00 No felodipine ER 10 mg tablet,exte nded release 24 hr 2020-07 00:00: 00 No 1mg atorvastati n 20 mg tablet 2020-07 00:00: 00 No 1mg Dose Unknown 2020-07 00:00: 00 No felodipine ER 10 mg tablet,exte nded release 24 hr 2020-07 00:00: 00 No 1mg atorvastati n 20 mg tablet 2020-07 00:00: 00 No 1mg Dose Unknown 2020-07 00:00: 00 No Dose Unknown 2020-07 00:00: 00 No atorvastati n 20 mg tablet 2020-07 00:00: 00 No 1mg Dose Unknown 2020-07 00:00: 00 No Remeron 15 mg tablet 2020-07 00:00: 00 Yes 1mg Topher Brown gabapentin 300 mg capsule 2020-07 00:00: 00 Yes 1mg Topher Brown Remeron 15 mg tablet 2020-07 00:00: 00 No 1mg gabapentin 300 mg capsule 2020-07 2 00:00: 00 No 1mg Remeron 15 mg tablet 2020-07 00:00: 00 No 1mg gabapentin 300 mg capsule 2020-07 00:00: 00 No 1mg Remeron 15 mg tablet 2020-07 2 00:00: 00 No 1mg Remeron 15 mg tablet 2020-07 2 00:00: 00 No 1mg gabapentin 300 mg capsule 2020-07 2 00:00: 00 No 1mg gabapentin 300 mg capsule 2020-07 2 00:00: 00 No 1mg Remeron 15 mg tablet 2020-07 2 00:00: 00 No 1mg gabapentin 300 mg capsule 2020-07 2- 00:00: 00 No 1mg Remeron 15 mg tablet 2020-07 00:00: 00 No 1mg gabapentin 300 mg capsule 2020-07 00:00: 00 No 1mg felodipine ER 10 mg tablet,exte nded release 24 hr 2020-07 00:00: 00 Yes 1mg Topher Brown cyclobenzap rine 5 mg tablet 2020-07 00:00: 00 Yes 1mg Topher Brown atorvastati n 20 mg tablet 2020-07 00:00: 00 Yes 1mg Topher rBown felodipine ER 10 mg tablet,exte nded release 24 hr 2020-07 00:00: 00 No 1mg cyclobenzap rine 5 mg tablet 2020-07 00:00: 00 No 1mg atorvastati n 20 mg tablet 2020-07 00:00: 00 No 1mg felodipine ER 10 mg tablet,exte nded release 24 hr 2020-07 00:00: 00 No 1mg cyclobenzap rine 5 mg tablet 2020-07 00:00: 00 No 1mg atorvastati n 20 mg tablet 2020-07 00:00: 00 No 1mg felodipine ER 10 mg tablet,exte nded release 24 hr 2020-07 00:00: 00 No 1mg cyclobenzap rine 5 mg tablet 2020-07 00:00: 00 No 1mg atorvastati n 20 mg tablet 2020-07 00:00: 00 No 1mg felodipine ER 10 mg tablet,exte nded release 24 hr 2020-07 00:00: 00 No 1mg cyclobenzap rine 5 mg tablet 2020-07 00:00: 00 No 1mg atorvastati n 20 mg tablet 2020-07 00:00: 00 No 1mg felodipine ER 10 mg tablet,exte nded release 24 hr 2020-07 00:00: 00 No 1mg cyclobenzap rine 5 mg tablet 2020-07 00:00: 00 No 1mg atorvastati n 20 mg tablet 2020-07 00:00: 00 No 1mg felodipine ER 10 mg tablet,exte nded release 24 hr 2020-07 00:00: 00 No 1mg cyclobenzap rine 5 mg tablet 2020-07 00:00: 00 No 1mg atorvastati n 20 mg tablet 2020-07 00:00: 00 No 1mg Remeron 15 mg tablet 2020-07 00:00: 00 Yes 1mg Topherkermit Brown gabapentin 300 mg capsule 2020-07 00:00: 00 Yes 1mg Topher Brown Remeron 15 mg tablet 2020-07 00:00: 00 No 1mg gabapentin 300 mg capsule 2020-07 00:00: 00 No 1mg Remeron 15 mg tablet 2020-07 00:00: 00 No 1mg gabapentin 300 mg capsule 2020-07 00:00: 00 No 1mg Remeron 15 mg tablet 2020-07 00:00: 00 No 1mg gabapentin 300 mg capsule 2020-07 00:00: 00 No 1mg Remeron 15 mg tablet 2020-07 00:00: 00 No 1mg gabapentin 300 mg capsule 2020-07 00:00: 00 No 1mg Remeron 15 mg tablet 2020-07 00:00: 00 No 1mg gabapentin 300 mg capsule 2020-07 00:00: 00 No 1mg Remeron 15 mg tablet 2020-07 00:00: 00 No 1mg gabapentin 300 mg capsule 2020-07 00:00: 00 No 1mg Remeron 15 mg tablet 2020-07 00:00: 00 Yes 1mg Topher Brown gabapentin 300 mg capsule 2020-07 00:00: 00 Yes 1mg Topher Brown Remeron 15 mg tablet 2020-07 00:00: 00 No 1mg gabapentin 300 mg capsule 2020-07 00:00: 00 No 1mg Remeron 15 mg tablet 2020-07 00:00: 00 No 1mg gabapentin 300 mg capsule 2020-07 00:00: 00 No 1mg Remeron 15 mg tablet 2020-07 00:00: 00 No 1mg gabapentin 300 mg capsule 2020-07 00:00: 00 No 1mg Remeron 15 mg tablet 2020-07 00:00: 00 No 1mg gabapentin 300 mg capsule 2020-07 00:00: 00 No 1mg Remeron 15 mg tablet 2020-07 00:00: 00 No 1mg gabapentin 300 mg capsule 2020-07 00:00: 00 No 1mg Remeron 15 mg tablet 2020-07 00:00: 00 No 1mg gabapentin 300 mg capsule 2020-07 00:00: 00 No 1mg medroxyPROG ESTERone (PROVERA) 10 mg tablet 2020-07 00:00: 00 Yes [id number] 10mg Take 1 tablet by mouth daily. [facility] Dose Unknown 2020-07 0 00:00: 00 Yes Topher Brown Dose Unknown 2020-07 0 00:00: 00 No Dose Unknown 2020-07 0 00:00: 00 No Dose Unknown 2020-07 0 00:00: 00 No Dose Unknown 2020-07 0 00:00: 00 No Dose Unknown 2020-07 0 00:00: 00 No Dose Unknown 2020-07 0 00:00: 00 No felodipine ER 10 mg tablet,exte nded release 24 hr 2020-07 0- 00:00: 00 Yes 1mg Topher Brown atorvastati n 20 mg tablet 2020-07 0- 00:00: 00 Yes 1mg Topher Brown felodipine ER 10 mg tablet,exte nded release 24 hr 2020-07 0- 00:00: 00 No 1mg atorvastati n 20 mg tablet 2020-07 0- 00:00: 00 No 1mg felodipine ER 10 mg tablet,exte nded release 24 hr 2020-07 0- 00:00: 00 No 1mg atorvastati n 20 mg tablet 2020-07 0- 00:00: 00 No 1mg felodipine ER 10 mg tablet,exte nded release 24 hr 2020-07 0- 00:00: 00 No 1mg atorvastati n 20 mg tablet 2020-07 0- 00:00: 00 No 1mg felodipine ER 10 mg tablet,exte nded release 24 hr 2020-07 0- 00:00: 00 No 1mg atorvastati n 20 mg tablet 2020-07 0 00:00: 00 No 1mg felodipine ER 10 mg tablet,exte nded release 24 hr 2020-07 0 00:00: 00 No 1mg atorvastati n 20 mg tablet 2020-07 0 00:00: 00 No 1mg felodipine ER 10 mg tablet,exte nded release 24 hr 2020-07 0 00:00: 00 No 1mg atorvastati n 20 mg tablet 2020-07 0 00:00: 00 No 1mg diclofenac sodium 75 mg tablet,kelin yed release 03-25 00:00: 00 Yes 1mg Topher Brown diclofenac sodium 75 mg tablet,kelin yed release 03-25 00:00: 00 No 1mg diclofenac sodium 75 mg tablet,kelin yed release 03-25 00:00: 00 No 1mg diclofenac sodium 75 mg tablet,kelin yed release 03-25 00:00: 00 No 1mg diclofenac sodium 75 mg tablet,kelin yed release 03-25 00:00: 00 No 1mg diclofenac sodium 75 mg tablet,kelin yed release 03-25 00:00: 00 No 1mg diclofenac sodium 75 mg tablet,kelin yed release 03-25 00:00: 00 No 1mg Remeron 15 mg tablet 03-09 00:00: 00 Yes 1mg Topher Brown gabapentin 300 mg capsule 03-09 00:00: 00 Yes 1mg Topher Brown Remeron 15 mg tablet 03-09 00:00: 00 No 1mg gabapentin 300 mg capsule 03-09 00:00: 00 No 1mg Remeron 15 mg tablet 03-09 00:00: 00 No 1mg gabapentin 300 mg capsule 03-09 00:00: 00 No 1mg Remeron 15 mg tablet 03-09 00:00: 00 No 1mg gabapentin 300 mg capsule 0 03-09 00:00: 00 No 1mg Remeron 15 mg tablet 0 03-09 00:00: 00 No 1mg gabapentin 300 mg capsule 0 03-09 00:00: 00 No 1mg Remeron 15 mg tablet 0 03-09 00:00: 00 No 1mg gabapentin 300 mg capsule 0 03-09 00:00: 00 No 1mg Remeron 15 mg tablet 0 03-09 00:00: 00 No 1mg gabapentin 300 mg capsule 0 03-09 00:00: 00 No 1mg Dose Unknown 0 02-22 00:00: 00 Yes Topher Brown Dose Unknown 0 02-22 00:00: 00 No Dose Unknown 0 02-22 00:00: 00 No Dose Unknown 0 02-22 00:00: 00 No Dose Unknown 0 02-22 00:00: 00 No Dose Unknown 0 02-22 00:00: 00 No Dose Unknown 0 02-22 00:00: 00 No alendronate 70 mg tablet 0 02-17 00:00: 00 Yes 1mg Topher Brown alendronate 70 mg tablet 0 02-17 00:00: 00 No 1mg alendronate 70 mg tablet 0 02-17 00:00: 00 No 1mg alendronate 70 mg tablet 0 02-17 00:00: 00 No 1mg alendronate 70 mg tablet 0 02-17 00:00: 00 No 1mg alendronate 70 mg tablet 0 02-17 00:00: 00 No 1mg alendronate 70 mg tablet 0 02-17 00:00: 00 No 1mg diclofenac sodium 75 mg tablet,kelin yed release 0 02-16 00:00: 00 Yes 1mg Topher Brown diclofenac sodium 75 mg tablet,kelin yed release 0 02-16 00:00: 00 No 1mg diclofenac sodium 75 mg tablet,kelin yed release 2020-0 02-16 00:00: 00 No 1mg diclofenac sodium 75 mg tablet,kelin yed release 02-16 00:00: 00 No 1mg diclofenac sodium 75 mg tablet,kelin yed release 8- 00:00: 00 No 1mg diclofenac sodium 75 mg tablet,eklin yed release 8- 00:00: 00 No 1mg diclofenac sodium 75 mg tablet,kelin yed release 8- 00:00: 00 No 1mg Remeron 15 mg tablet 8- 00:00: 00 Yes 1mg Topher Brown gabapentin 300 mg capsule 8- 00:00: 00 Yes 1mg Topher Brown Remeron 15 mg tablet 8- 00:00: 00 No 1mg gabapentin 300 mg capsule 8- 00:00: 00 No 1mg Remeron 15 mg tablet 8- 00:00: 00 No 1mg gabapentin 300 mg capsule 8- 00:00: 00 No 1mg Remeron 15 mg tablet 8- 00:00: 00 No 1mg gabapentin 300 mg capsule 8- 00:00: 00 No 1mg Remeron 15 mg tablet 8- 00:00: 00 No 1mg gabapentin 300 mg capsule 8- 00:00: 00 No 1mg Remeron 15 mg tablet 8- 00:00: 00 No 1mg gabapentin 300 mg capsule 8- 00:00: 00 No 1mg Remeron 15 mg tablet 8- 00:00: 00 No 1mg gabapentin 300 mg capsule 8- 00:00: 00 No 1mg Dose Unknown 7- 00:00: 00 Yes Topher Brown diclofenac sodium 75 mg tablet,kelin yed release 7- 00:00: 00 Yes 1mg Topher Brown Dose Unknown - 00:00: 00 Yes Topher Brown felodipine ER 10 mg tablet,exte nded release 24 hr 7- 00:00: 00 No 1mg diclofenac sodium 75 mg tablet,kelin yed release 7- 00:00: 00 No 1mg atorvastati n 20 mg tablet 01-07 00:00: 00 No 1mg felodipine ER 10 mg tablet,exte nded release 24 hr 01-07 00:00: 00 No 1mg diclofenac sodium 75 mg tablet,kelin yed release 01-07 00:00: 00 No 1mg atorvastati n 20 mg tablet 01-07 00:00: 00 No 1mg felodipine ER 10 mg tablet,exte nded release 24 hr 01-07 00:00: 00 No 1mg diclofenac sodium 75 mg tablet,kelin yed release 01-07 00:00: 00 No 1mg atorvastati n 20 mg tablet 01-07 00:00: 00 No 1mg felodipine ER 10 mg tablet,exte nded release 24 hr 01-07 00:00: 00 No 1mg diclofenac sodium 75 mg tablet,kelin yed release 01-07 00:00: 00 No 1mg atorvastati n 20 mg tablet 01-07 00:00: 00 No 1mg felodipine ER 10 mg tablet,exte nded release 24 hr 01-07 00:00: 00 No 1mg diclofenac sodium 75 mg tablet,kelin yed release 01-07 00:00: 00 No 1mg atorvastati n 20 mg tablet 01-07 00:00: 00 No 1mg Dose Unknown 01-07 00:00: 00 No diclofenac sodium 75 mg tablet,kelin yed release 01-07 00:00: 00 No 1mg atorvastati n 20 mg tablet 01-07 00:00: 00 No 1mg felodipine ER 10 mg tablet,exte nded release 24 hr 01-06 00:00: 00 Yes 1mg Topher F Kevin diclofenac sodium 75 mg tablet,kelin yed release 01-06 00:00: 00 Yes 1mg Topher F Kevin atorvastati n 20 mg tablet 0 01-06 00:00: 00 Yes 1mg Topher F Kevin felodipine ER 10 mg tablet,exte nded release 24 hr 01-06 00:00: 00 No 1mg diclofenac sodium 75 mg tablet,kelin yed release 01-06 00:00: 00 No 1mg atorvastati n 20 mg tablet 01-06 00:00: 00 No 1mg felodipine ER 10 mg tablet,exte nded release 24 hr 01-06 00:00: 00 No 1mg diclofenac sodium 75 mg tablet,kelin yed release 01-06 00:00: 00 No 1mg atorvastati n 20 mg tablet 01-06 00:00: 00 No 1mg felodipine ER 10 mg tablet,exte nded release 24 hr 01-06 00:00: 00 No 1mg diclofenac sodium 75 mg tablet,kelin yed release 01-06 00:00: 00 No 1mg atorvastati n 20 mg tablet 01-06 00:00: 00 No 1mg felodipine ER 10 mg tablet,exte nded release 24 hr 01-06 00:00: 00 No 1mg diclofenac sodium 75 mg tablet,kelin yed release 01-06 00:00: 00 No 1mg atorvastati n 20 mg tablet 01-06 00:00: 00 No 1mg felodipine ER 10 mg tablet,exte nded release 24 hr 01-06 00:00: 00 No 1mg diclofenac sodium 75 mg tablet,kelin yed release 01-06 00:00: 00 No 1mg atorvastati n 20 mg tablet 01-06 00:00: 00 No 1mg felodipine ER 10 mg tablet,exte nded release 24 hr 01-06 00:00: 00 No 1mg diclofenac sodium 75 mg tablet,kelin yed release 01-06 00:00: 00 No 1mg atorvastati n 20 mg tablet 01-06 00:00: 00 No 1mg trazodone 50 mg tablet 12-24 00:00: 00 Yes 12mg Topher F Kevin gabapentin 300 mg capsule 12-24 00:00: 00 Yes 1mg Topher F Kevin trazodone 50 mg tablet 12-24 00:00: 00 No 12mg gabapentin 300 mg capsule 12-24 00:00: 00 No 1mg trazodone 50 mg tablet 12-24 00:00: 00 No 12mg gabapentin 300 mg capsule 12-24 00:00: 00 No 1mg trazodone 50 mg tablet 12-24 00:00: 00 No 12mg gabapentin 300 mg capsule 12-24 00:00: 00 No 1mg trazodone 50 mg tablet 12-24 00:00: 00 No 12mg gabapentin 300 mg capsule 12-24 00:00: 00 No 1mg trazodone 50 mg tablet 12-24 00:00: 00 No 12mg gabapentin 300 mg capsule 12-24 00:00: 00 No 1mg trazodone 50 mg tablet 12-24 00:00: 00 No 12mg gabapentin 300 mg capsule 12-24 00:00: 00 No 1mg fluconazole 150 mg tablet 12-14 00:00: 00 Yes 1mg Topher Brown fluconazole 150 mg tablet 12-14 00:00: 00 No 1mg fluconazole 150 mg tablet 12-14 00:00: 00 No 1mg fluconazole 150 mg tablet 12-14 00:00: 00 No 1mg fluconazole 150 mg tablet 12-14 00:00: 00 No 1mg fluconazole 150 mg tablet 12-14 00:00: 00 No 1mg fluconazole 150 mg tablet 12-14 00:00: 00 No 1mg lidocaine 5 % topical patch 12-01 00:00: 00 Yes 1% Topher Brown diclofenac sodium 75 mg tablet,kelin yed release 12-01 00:00: 00 Yes 1mg Topher Brown alendronate 70 mg tablet 12-01 00:00: 00 Yes 1mg Topher Cam Kevin lidocaine 5 % topical patch 12-01 00:00: 00 No 1% diclofenac sodium 75 mg tablet,kelin yed release 12-01 00:00: 00 No 1mg alendronate 70 mg tablet 12-01 00:00: 00 No 1mg lidocaine 5 % topical patch 12-01 00:00: 00 No 1% diclofenac sodium 75 mg tablet,kelin yed release 12-01 00:00: 00 No 1mg alendronate 70 mg tablet 12-01 00:00: 00 No 1mg lidocaine 5 % topical patch 12-01 00:00: 00 No 1% diclofenac sodium 75 mg tablet,kelin yed release 12-01 00:00: 00 No 1mg alendronate 70 mg tablet 12-01 00:00: 00 No 1mg lidocaine 5 % topical patch 12-01 00:00: 00 No 1% diclofenac sodium 75 mg tablet,kelin yed release 12-01 00:00: 00 No 1mg alendronate 70 mg tablet 12-01 00:00: 00 No 1mg lidocaine 5 % topical patch 12-01 00:00: 00 No 1% diclofenac sodium 75 mg tablet,kelin yed release 12-01 00:00: 00 No 1mg alendronate 70 mg tablet 12-01 00:00: 00 No 1mg lidocaine 5 % topical patch 12-01 00:00: 00 No 1% diclofenac sodium 75 mg tablet,kelin yed release 12-01 00:00: 00 No 1mg alendronate 70 mg tablet 12-01 00:00: 00 No 1mg Remeron 15 mg tablet 11-24 00:00: 00 Yes 1mg Topher Brown Remeron 15 mg tablet 11-24 00:00: 00 No 1mg Remeron 15 mg tablet 11-24 00:00: 00 No 1mg Remeron 15 mg tablet 11-24 00:00: 00 No 1mg Remeron 15 mg tablet 11-24 00:00: 00 No 1mg Remeron 15 mg tablet 11-24 00:00: 00 No 1mg Remeron 15 mg tablet 0 5-25 00:00: 00 No 1mg Remeron 15 mg tablet 0 5-17 00:00: 00 Yes 1mg Topher Brown Remeron 15 mg tablet 0 5-17 00:00: 00 No 1mg Remeron 15 mg tablet 0 5-17 00:00: 00 No 1mg Remeron 15 mg tablet 0 5-17 00:00: 00 No 1mg Remeron 15 mg tablet 0 5-17 00:00: 00 No 1mg Remeron 15 mg tablet 0 5-17 00:00: 00 No 1mg Remeron 15 mg tablet 0 5-17 00:00: 00 No 1mg Remeron 15 mg tablet 0 4-08 00:00: 00 Yes 1mg Topher Brown gabapentin 300 mg capsule 2020-0 4-08 00:00: 00 Yes 1mg Topher Brown Remeron 15 mg tablet 0 4-08 00:00: 00 No 1mg gabapentin 300 mg capsule 2020-0 4-08 00:00: 00 No 1mg Remeron 15 mg tablet 2020-0 4-08 00:00: 00 No 1mg gabapentin 300 mg capsule 2020-0 4-08 00:00: 00 No 1mg Remeron 15 mg tablet 0 4-08 00:00: 00 No 1mg gabapentin 300 mg capsule 2020-0 4-08 00:00: 00 No 1mg Remeron 15 mg tablet 2020-0 4-08 00:00: 00 No 1mg gabapentin 300 mg capsule 2020-0 4-08 00:00: 00 No 1mg Remeron 15 mg tablet 2020-0 4-08 00:00: 00 No 1mg gabapentin 300 mg capsule 2020-0 4-08 00:00: 00 No 1mg Remeron 15 mg tablet 2020-0 4-08 00:00: 00 No 1mg gabapentin 300 mg capsule 2020-0 4-08 00:00: 00 No 1mg lidocaine 5 % topical patch 2020-0 3-10 00:00: 00 Yes 1% Topher Brown felodipine ER 10 mg tablet,exte nded release 24 hr 0 3- 00:00: 00 Yes 1mg Topher Brown diclofenac sodium 75 mg tablet,kelin yed release 0 3- 00:00: 00 Yes 1mg Topher Brown alendronate 70 mg tablet 0 3- 00:00: 00 Yes 1mg Topher Brown atorvastati n 20 mg tablet 0 3- 00:00: 00 Yes 1mg Topher Brown Remeron 15 mg tablet 0 3- 00:00: 00 Yes 1mg Topher Brown gabapentin 300 mg capsule 0 3- 00:00: 00 Yes 1mg Topher Brown lidocaine 5 % topical patch 3 00:00: 00 No 1% felodipine ER 10 mg tablet,exte nded release 24 hr 0 3- 00:00: 00 No 1mg diclofenac sodium 75 mg tablet,kelin yed release 09-09 00:00: 00 No 1mg alendronate 70 mg tablet 0 3- 00:00: 00 No 1mg atorvastati n 20 mg tablet 0 3 00:00: 00 No 1mg Remeron 15 mg tablet 0 3 00:00: 00 No 1mg gabapentin 300 mg capsule 0 - 00:00: 00 No 1mg lidocaine 5 % topical patch 3 00:00: 00 No 1% felodipine ER 10 mg tablet,exte nded release 24 hr - 00:00: 00 No 1mg diclofenac sodium 75 mg tablet,kelin yed release 3 00:00: 00 No 1mg alendronate 70 mg tablet 0 3- 00:00: 00 No 1mg atorvastati n 20 mg tablet 0 3- 00:00: 00 No 1mg Remeron 15 mg tablet 0 3- 00:00: 00 No 1mg gabapentin 300 mg capsule 0 3- 00:00: 00 No 1mg lidocaine 5 % topical patch 0 3-10 00:00: 00 No 1% felodipine ER 10 mg tablet,exte nded release 24 hr 0 3- 00:00: 00 No 1mg diclofenac sodium 75 mg tablet,kelin yed release 0 3- 00:00: 00 No 1mg alendronate 70 mg tablet 0 3- 00:00: 00 No 1mg atorvastati n 20 mg tablet 0 3- 00:00: 00 No 1mg Remeron 15 mg tablet 0 3- 00:00: 00 No 1mg gabapentin 300 mg capsule 0 3- 00:00: 00 No 1mg lidocaine 5 % topical patch 0 3- 00:00: 00 No 1% felodipine ER 10 mg tablet,exte nded release 24 hr 0 3 00:00: 00 No 1mg diclofenac sodium 75 mg tablet,kelin yed release 3 00:00: 00 No 1mg alendronate 70 mg tablet 0 3- 00:00: 00 No 1mg atorvastati n 20 mg tablet 0 3- 00:00: 00 No 1mg Remeron 15 mg tablet 0 3- 00:00: 00 No 1mg gabapentin 300 mg capsule 0 3- 00:00: 00 No 1mg lidocaine 5 % topical patch 3- 00:00: 00 No 1% felodipine ER 10 mg tablet,exte nded release 24 hr 3- 00:00: 00 No 1mg diclofenac sodium 75 mg tablet,kelin yed release 3- 00:00: 00 No 1mg alendronate 70 mg tablet 0 3- 00:00: 00 No 1mg atorvastati n 20 mg tablet 0 3- 00:00: 00 No 1mg Remeron 15 mg tablet 0 3- 00:00: 00 No 1mg gabapentin 300 mg capsule 0 3- 00:00: 00 No 1mg lidocaine 5 % topical patch 0 3- 00:00: 00 No 1% felodipine ER 10 mg tablet,exte nded release 24 hr 0 3- 00:00: 00 No 1mg diclofenac sodium 75 mg tablet,kelin yed release 3- 00:00: 00 No 1mg alendronate 70 mg tablet 3- 00:00: 00 No 1mg atorvastati n 20 mg tablet 3- 00:00: 00 No 1mg Remeron 15 mg tablet 3 00:00: 00 No 1mg gabapentin 300 mg capsule 3 00:00: 00 No 1mg Dose Unknown 3- 00:00: 00 Yes Topher Tutu Brown medroxyprog esterone 10 mg tablet 3- 00:00: 00 No 1mg medroxyprog esterone 10 mg tablet 3 00:00: 00 No 1mg medroxyprog esterone 10 mg tablet 3 00:00: 00 No 1mg medroxyprog esterone 10 mg tablet 3 00:00: 00 No 1mg medroxyprog esterone 10 mg tablet 3 00:00: 00 No 1mg medroxyprog esterone 10 mg tablet 3 00:00: 00 No 1mg medroxyPROG ESTERone (PROVERA) 10 mg tablet 09-02 00:00: 00 - 00:00 :00 No [id number] 10mg Take 1 tablet by mouth daily. [facility] amlodipine 10 mg tablet 08-28 00:00: 00 Yes 1mg Topherkermit Brown amlodipine 10 mg tablet 2- 00:00: 00 No 1mg amlodipine 10 mg tablet 2 00:00: 00 No 1mg amlodipine 10 mg tablet 2 00:00: 00 No 1mg amlodipine 10 mg tablet 2 00:00: 00 No 1mg amlodipine 10 mg tablet 08-28 00:00: 00 No 1mg amlodipine 10 mg tablet 2 00:00: 00 No 1mg Dose Unknown 2- 00:00: 00 Yes Topher Tutu Kevin atorvastati n 20 mg tablet [id number] 00:00: 00 No 1mg atorvastati n 20 mg tablet 08-25 00:00: 00 No 1mg atorvastati n 20 mg tablet 08-25 00:00: 00 No 1mg atorvastati n 20 mg tablet 08-25 00:00: 00 No 1mg atorvastati n 20 mg tablet 08-25 00:00: 00 No 1mg atorvastati n 20 mg tablet 08-25 00:00: 00 No 1mg traMADOL (ULTRAM) 50 mg tablet 08-12 11:10: 27 Yes 50mg Take 50 mg by mouth every 6 (six) hours as needed. [facility] NAPROXEN SODIUM (ALEVE ORAL) 08-12 11:10: 27 Yes Take by mouth daily. [facility] FLUoxetine (PROZAC) 20 mg capsule 08-12 11:10: 27 Yes 20mg Take 20 mg by mouth daily. [facility] diclofenac 75 mg EC tablet 08-12 11:10: 27 Yes 75mg Take 75 mg by mouth 2 (two) times daily with meals. [facility] ibuprofen 600 mg tablet 08-12 00:00: 00 12-17 00:00 :00 No [id number] 600mg Take 1 tablet by mouth every 6 (six) hours as needed for Pain (scale 4-6). [facility] acetaminoph en (TYLENOL) 325 mg tablet 08-12 00:00: 00 08-13 05:59 :00 No [id number] 650mg Take 2 tablets by mouth every 6 (six) hours as needed for Pain (scale 4-6). [facility] Remeron 15 mg tablet 07-23 00:00: 00 Yes 1mg Topher Cam Kevin gabapentin 300 mg capsule 07-23 00:00: 00 Yes 1mg Topher Brown Remeron 15 mg tablet 07-23 00:00: 00 No 1mg gabapentin 300 mg capsule 07-23 00:00: 00 No 1mg Remeron 15 mg tablet - 00:00: 00 No 1mg gabapentin 300 mg capsule 07-23 00:00: 00 No 1mg Remeron 15 mg tablet 07-23 00:00: 00 No 1mg gabapentin 300 mg capsule 07-23 00:00: 00 No 1mg Remeron 15 mg tablet 07-23 00:00: 00 No 1mg gabapentin 300 mg capsule 07-23 00:00: 00 No 1mg Remeron 15 mg tablet 07-23 00:00: 00 No 1mg gabapentin 300 mg capsule 07-23 00:00: 00 No 1mg Remeron 15 mg tablet 07-23 00:00: 00 No 1mg gabapentin 300 mg capsule 07-23 00:00: 00 No 1mg diclofenac sodium 75 mg tablet,kelin yed release 07-15 00:00: 00 Yes 1mg Topher Brown diclofenac sodium 75 mg tablet,kelin yed release 07-15 00:00: 00 No 1mg diclofenac sodium 75 mg tablet,kelin yed release 07-15 00:00: 00 No 1mg diclofenac sodium 75 mg tablet,kelin yed release 07-15 00:00: 00 No 1mg diclofenac sodium 75 mg tablet,kelin yed release 07-15 00:00: 00 No 1mg diclofenac sodium 75 mg tablet,kelin yed release 07-15 00:00: 00 No 1mg diclofenac sodium 75 mg tablet,kelin yed release 07-15 00:00: 00 No 1mg Remeron 15 mg tablet 2019-07- 00:00: 00 Yes 1mg Topher Tutu Brown gabapentin 300 mg capsule 2019-07- 00:00: 00 Yes 1mg Topher Brown Remeron 15 mg tablet 2019-07- 00:00: 00 No 1mg gabapentin 300 mg capsule 2019-07 00:00: 00 No 1mg Remeron 15 mg tablet 2019-07- 00:00: 00 No 1mg gabapentin 300 mg capsule 2020-1 2-17 00:00: 00 No 1mg Remeron 15 mg tablet 2019-07 2-17 00:00: 00 No 1mg gabapentin 300 mg capsule 2019-07-17 00:00: 00 No 1mg Remeron 15 mg tablet 2019-07- 00:00: 00 No 1mg gabapentin 300 mg capsule 2019-07 00:00: 00 No 1mg Remeron 15 mg tablet 2019-07 00:00: 00 No 1mg gabapentin 300 mg capsule 2019-07 00:00: 00 No 1mg Remeron 15 mg tablet 2019-07 00:00: 00 No 1mg gabapentin 300 mg capsule 2019-07 00:00: 00 No 1mg Remeron 15 mg tablet 2019-07 00:00: 00 Yes 1mg Topher Brown gabapentin 300 mg capsule 2019-07 00:00: 00 Yes 1mg Topher Tutu Brown Remeron 15 mg tablet 2019-07 00:00: 00 No 1mg gabapentin 300 mg capsule 2019-07 00:00: 00 No 1mg Remeron 15 mg tablet 2019-07 00:00: 00 No 1mg gabapentin 300 mg capsule 2019-07 00:00: 00 No 1mg Remeron 15 mg tablet 2019-07 00:00: 00 No 1mg gabapentin 300 mg capsule 2019-07 00:00: 00 No 1mg Remeron 15 mg tablet 2019-07 00:00: 00 No 1mg gabapentin 300 mg capsule 2019-07 00:00: 00 No 1mg Remeron 15 mg tablet 2019-07 00:00: 00 No 1mg gabapentin 300 mg capsule 2019-07 00:00: 00 No 1mg Remeron 15 mg tablet 2019-0718 00:00: 00 No 1mg gabapentin 300 mg capsule 2019-07 00:00: 00 No 1mg Remeron 15 mg tablet 2019-07 00:00: 00 Yes 1mg Topher Brown gabapentin 300 mg capsule 2019-07 0-20 00:00: 00 Yes 1mg Topher Brown Remeron 15 mg tablet 2019-07 0-20 00:00: 00 No 1mg gabapentin 300 mg capsule 2019-07 00:00: 00 No 1mg Remeron 15 mg tablet 2019-07 00:00: 00 No 1mg gabapentin 300 mg capsule 2019-07 00:00: 00 No 1mg Remeron 15 mg tablet 2019-07 00:00: 00 No 1mg gabapentin 300 mg capsule 2019-07 00:00: 00 No 1mg Remeron 15 mg tablet 2019-07 00:00: 00 No 1mg gabapentin 300 mg capsule 2019-07 00:00: 00 No 1mg Remeron 15 mg tablet 2019-07 00:00: 00 No 1mg gabapentin 300 mg capsule 2019-07 00:00: 00 No 1mg Remeron 15 mg tablet 2019-07 00:00: 00 No 1mg gabapentin 300 mg capsule 2019-07 00:00: 00 No 1mg felodipine ER 10 mg tablet,exte nded release 24 hr 03-25 00:00: 00 Yes 1mg Topher Brown amlodipine 10 mg tablet 03-25 00:00: 00 Yes 1mg Topher Brown diclofenac sodium 75 mg tablet,kelin yed release 03-25 00:00: 00 Yes 1mg Topher Brown alendronate 70 mg tablet 03-25 00:00: 00 Yes 1mg Topher Brown atorvastati n 20 mg tablet 03-25 00:00: 00 Yes 1mg Topher Brown felodipine ER 10 mg tablet,exte nded release 24 hr 03-25 00:00: 00 No 1mg amlodipine 10 mg tablet 03-25 00:00: 00 No 1mg diclofenac sodium 75 mg tablet,kelin yed release 03-25 00:00: 00 No 1mg alendronate 70 mg tablet 03-25 00:00: 00 No 1mg atorvastati n 20 mg tablet 03-25 00:00: 00 No 1mg felodipine ER 10 mg tablet,exte nded release 24 hr 03-25 00:00: 00 No 1mg amlodipine 10 mg tablet 03-25 00:00: 00 No 1mg diclofenac sodium 75 mg tablet,kelin yed release 03-25 00:00: 00 No 1mg alendronate 70 mg tablet 03-25 00:00: 00 No 1mg atorvastati n 20 mg tablet 03-25 00:00: 00 No 1mg felodipine ER 10 mg tablet,exte nded release 24 hr 03-25 00:00: 00 No 1mg amlodipine 10 mg tablet 03-25 00:00: 00 No 1mg diclofenac sodium 75 mg tablet,kelin yed release 03-25 00:00: 00 No 1mg alendronate 70 mg tablet 03-25 00:00: 00 No 1mg atorvastati n 20 mg tablet 03-25 00:00: 00 No 1mg felodipine ER 10 mg tablet,exte nded release 24 hr 03-25 00:00: 00 No 1mg amlodipine 10 mg tablet 03-25 00:00: 00 No 1mg diclofenac sodium 75 mg tablet,kelin yed release 03-25 00:00: 00 No 1mg alendronate 70 mg tablet 03-25 00:00: 00 No 1mg atorvastati n 20 mg tablet 03-25 00:00: 00 No 1mg felodipine ER 10 mg tablet,exte nded release 24 hr 03-25 00:00: 00 No 1mg amlodipine 10 mg tablet 03-25 00:00: 00 No 1mg diclofenac sodium 75 mg tablet,kelin yed release 03-25 00:00: 00 No 1mg alendronate 70 mg tablet 03-25 00:00: 00 No 1mg atorvastati n 20 mg tablet 03-25 00:00: 00 No 1mg felodipine ER 10 mg tablet,exte nded release 24 hr 03-25 00:00: 00 No 1mg amlodipine 10 mg tablet 03-25 00:00: 00 No 1mg diclofenac sodium 75 mg tablet,kelin yed release 03-25 00:00: 00 No 1mg alendronate 70 mg tablet 03-25 00:00: 00 No 1mg atorvastati n 20 mg tablet 0 03-25 00:00: 00 No 1mg Remeron 15 mg tablet 0 03-14 00:00: 00 Yes 1mg Topher Brown gabapentin 300 mg capsule 0 03-14 00:00: 00 Yes 1mg Topher Brown Remeron 15 mg tablet 0 03-14 00:00: 00 No 1mg gabapentin 300 mg capsule 0 03-14 00:00: 00 No 1mg Remeron 15 mg tablet 0 03-14 00:00: 00 No 1mg gabapentin 300 mg capsule 0 03-14 00:00: 00 No 1mg Remeron 15 mg tablet 03-14 00:00: 00 No 1mg gabapentin 300 mg capsule 0 03-14 00:00: 00 No 1mg Remeron 15 mg tablet 03-14 00:00: 00 No 1mg gabapentin 300 mg capsule 0 03-14 00:00: 00 No 1mg Remeron 15 mg tablet 03-14 00:00: 00 No 1mg gabapentin 300 mg capsule 03-14 00:00: 00 No 1mg Remeron 15 mg tablet 03-14 00:00: 00 No 1mg gabapentin 300 mg capsule 03-14 00:00: 00 No 1mg indomethaci n 50 mg capsule 03-12 00:00: 00 Yes 1mg Topher Brown indomethaci n 50 mg capsule 03-12 00:00: 00 No 1mg indomethaci n 50 mg capsule 0 03-12 00:00: 00 No 1mg indomethaci n 50 mg capsule 03-12 00:00: 00 No 1mg indomethaci n 50 mg capsule 03-12 00:00: 00 No 1mg indomethaci n 50 mg capsule 03-12 00:00: 00 No 1mg indomethaci n 50 mg capsule 03-12 00:00: 00 No 1mg felodipine ER 10 mg tablet,exte nded release 24 hr 0 18 00:00: 00 Yes 1mg Topher Brown amlodipine 10 mg tablet 0 18 00:00: 00 Yes 1mg Topher Brown alendronate 70 mg tablet 18 00:00: 00 Yes 1mg Topher Brown atorvastati n 20 mg tablet 18 00:00: 00 Yes 1mg Topher Brown felodipine ER 10 mg tablet,exte nded release 24 hr 0 18 00:00: 00 No 1mg amlodipine 10 mg tablet 0 18 00:00: 00 No 1mg alendronate 70 mg tablet 18 00:00: 00 No 1mg atorvastati n 20 mg tablet 18 00:00: 00 No 1mg felodipine ER 10 mg tablet,exte nded release 24 hr 18 00:00: 00 No 1mg amlodipine 10 mg tablet 18 00:00: 00 No 1mg alendronate 70 mg tablet 18 00:00: 00 No 1mg atorvastati n 20 mg tablet 18 00:00: 00 No 1mg felodipine ER 10 mg tablet,exte nded release 24 hr 02-17 00:00: 00 No 1mg amlodipine 10 mg tablet 18 00:00: 00 No 1mg alendronate 70 mg tablet 18 00:00: 00 No 1mg atorvastati n 20 mg tablet 18 00:00: 00 No 1mg felodipine ER 10 mg tablet,exte nded release 24 hr 18 00:00: 00 No 1mg amlodipine 10 mg tablet 18 00:00: 00 No 1mg alendronate 70 mg tablet 18 00:00: 00 No 1mg atorvastati n 20 mg tablet 18 00:00: 00 No 1mg felodipine ER 10 mg tablet,exte nded release 24 hr 18 00:00: 00 No 1mg amlodipine 10 mg tablet 18 00:00: 00 No 1mg alendronate 70 mg tablet 18 00:00: 00 No 1mg atorvastati n 20 mg tablet 18 00:00: 00 No 1mg felodipine ER 10 mg tablet,exte nded release 24 hr 02-17 00:00: 00 No 1mg amlodipine 10 mg tablet 02-17 00:00: 00 No 1mg alendronate 70 mg tablet 02-17 00:00: 00 No 1mg atorvastati n 20 mg tablet 02-17 00:00: 00 No 1mg felodipine ER 10 mg tablet,exte nded release 24 hr 02-16 00:00: 00 Yes 1mg Topher Brown amlodipine 10 mg tablet 02-16 00:00: 00 Yes 1mg Topher Brown naproxen 500 mg tablet,kelin yed release 02-16 00:00: 00 Yes 1mg Topher Brown alendronate 70 mg tablet 02-16 00:00: 00 Yes 1mg Topher Brown atorvastati n 20 mg tablet 02-16 00:00: 00 Yes 1mg Topher Brown felodipine ER 10 mg tablet,exte nded release 24 hr 02-16 00:00: 00 No 1mg amlodipine 10 mg tablet 02-16 00:00: 00 No 1mg naproxen 500 mg tablet,kelin yed release 02-16 00:00: 00 No 1mg alendronate 70 mg tablet 02-16 00:00: 00 No 1mg atorvastati n 20 mg tablet 02-16 00:00: 00 No 1mg felodipine ER 10 mg tablet,exte nded release 24 hr 02-16 00:00: 00 No 1mg amlodipine 10 mg tablet 02-16 00:00: 00 No 1mg naproxen 500 mg tablet,kelin yed release 02-16 00:00: 00 No 1mg alendronate 70 mg tablet 02-16 00:00: 00 No 1mg atorvastati n 20 mg tablet 02-16 00:00: 00 No 1mg felodipine ER 10 mg tablet,exte nded release 24 hr 02-16 00:00: 00 No 1mg amlodipine 10 mg tablet 02-16 00:00: 00 No 1mg naproxen 500 mg tablet,kelin yed release 02-16 00:00: 00 No 1mg alendronate 70 mg tablet 02-16 00:00: 00 No 1mg atorvastati n 20 mg tablet 02-16 00:00: 00 No 1mg felodipine ER 10 mg tablet,exte nded release 24 hr 02-16 00:00: 00 No 1mg amlodipine 10 mg tablet 02-16 00:00: 00 No 1mg naproxen 500 mg tablet,kelin yed release 02-16 00:00: 00 No 1mg alendronate 70 mg tablet 02-16 00:00: 00 No 1mg atorvastati n 20 mg tablet 02-16 00:00: 00 No 1mg felodipine ER 10 mg tablet,exte nded release 24 hr 02-16 00:00: 00 No 1mg amlodipine 10 mg tablet 02-16 00:00: 00 No 1mg naproxen 500 mg tablet,kelin yed release 02-16 00:00: 00 No 1mg alendronate 70 mg tablet 02-16 00:00: 00 No 1mg atorvastati n 20 mg tablet 02-16 00:00: 00 No 1mg felodipine ER 10 mg tablet,exte nded release 24 hr 02-16 00:00: 00 No 1mg amlodipine 10 mg tablet 02-16 00:00: 00 No 1mg naproxen 500 mg tablet,kelin yed release 02-16 00:00: 00 No 1mg alendronate 70 mg tablet 02-16 00:00: 00 No 1mg atorvastati n 20 mg tablet 02-16 00:00: 00 No 1mg Remeron 15 mg tablet 02-12 00:00: 00 Yes 1mg Topher Brown gabapentin 300 mg capsule 02-12 00:00: 00 Yes 1mg Topher Brown Remeron 15 mg tablet 02-12 00:00: 00 No 1mg gabapentin 300 mg capsule 02-12 00:00: 00 No 1mg Remeron 15 mg tablet 02-12 00:00: 00 No 1mg gabapentin 300 mg capsule 02-12 00:00: 00 No 1mg Remeron 15 mg tablet 02-12 00:00: 00 No 1mg gabapentin 300 mg capsule 02-12 00:00: 00 No 1mg Remeron 15 mg tablet 02-12 00:00: 00 No 1mg gabapentin 300 mg capsule 02-12 00:00: 00 No 1mg Remeron 15 mg tablet 02-12 00:00: 00 No 1mg gabapentin 300 mg capsule 02-12 00:00: 00 No 1mg Remeron 15 mg tablet 02-12 00:00: 00 No 1mg gabapentin 300 mg capsule 02-12 00:00: 00 No 1mg norethindro ne (contracept tru) 0.35 mg tablet 01-22 00:00: 00 Yes 1mg Topherkermit Brown naproxen 500 mg tablet,kelin yed release 01-22 00:00: 00 Yes 1mg Topher Brown norethindro ne (contracept tru) 0.35 mg tablet 01-22 00:00: 00 No 1mg naproxen 500 mg tablet,kelin yed release 01-22 00:00: 00 No 1mg norethindro ne (contracept tru) 0.35 mg tablet 01-22 00:00: 00 No 1mg naproxen 500 mg tablet,kelin yed release 01-22 00:00: 00 No 1mg norethindro ne (contracept tru) 0.35 mg tablet 01-22 00:00: 00 No 1mg naproxen 500 mg tablet,kelin yed release 01-22 00:00: 00 No 1mg norethindro ne (contracept tru) 0.35 mg tablet 01-22 00:00: 00 No 1mg naproxen 500 mg tablet,kelin yed release 01-22 00:00: 00 No 1mg norethindro ne (contracept tru) 0.35 mg tablet 01-22 00:00: 00 No 1mg naproxen 500 mg tablet,kelin yed release 01-22 00:00: 00 No 1mg norethindro ne (contracept tru) 0.35 mg tablet 01-22 00:00: 00 No 1mg naproxen 500 mg tablet,kelin yed release 01-22 00:00: 00 No 1mg Remeron 15 mg tablet 01-15 00:00: 00 Yes 1mg Topher Brown Remeron 15 mg tablet 01-15 00:00: 00 No 1mg Remeron 15 mg tablet 01-15 00:00: 00 No 1mg Remeron 15 mg tablet 01-15 00:00: 00 No 1mg Remeron 15 mg tablet 01-15 00:00: 00 No 1mg Remeron 15 mg tablet 01-15 00:00: 00 No 1mg Remeron 15 mg tablet 01-15 00:00: 00 No 1mg cyclobenzap rine 10 mg tablet 01-02 00:00: 00 Yes 1mg Topher Brown indomethaci n 50 mg capsule 01-02 00:00: 00 Yes 1mg Topher Brown cyclobenzap rine 10 mg tablet 01-02 00:00: 00 No 1mg indomethaci n 50 mg capsule 01-02 00:00: 00 No 1mg cyclobenzap rine 10 mg tablet 01-02 00:00: 00 No 1mg indomethaci n 50 mg capsule 01-02 00:00: 00 No 1mg cyclobenzap rine 10 mg tablet 01-02 00:00: 00 No 1mg indomethaci n 50 mg capsule 01-02 00:00: 00 No 1mg cyclobenzap rine 10 mg tablet 01-02 00:00: 00 No 1mg indomethaci n 50 mg capsule 01-02 00:00: 00 No 1mg cyclobenzap rine 10 mg tablet 01-02 00:00: 00 No 1mg indomethaci n 50 mg capsule 01-02 00:00: 00 No 1mg cyclobenzap rine 10 mg tablet 01-02 00:00: 00 No 1mg indomethaci n 50 mg capsule 2019-0 01-02 00:00: 00 No 1mg Remeron 15 mg tablet 2019-0 18 00:00: 00 Yes 1mg Topher Brown gabapentin 300 mg capsule 2019-0 18 00:00: 00 Yes 1mg Topher Brown Remeron 15 mg tablet 0 18 00:00: 00 No 1mg gabapentin 300 mg capsule 0 12-18 00:00: 00 No 1mg Remeron 15 mg tablet 0 12-18 00:00: 00 No 1mg gabapentin 300 mg capsule 0 12-18 00:00: 00 No 1mg Remeron 15 mg tablet 2019-0 12-18 00:00: 00 No 1mg gabapentin 300 mg capsule 0 12-18 00:00: 00 No 1mg Remeron 15 mg tablet 2019-0 12-18 00:00: 00 No 1mg gabapentin 300 mg capsule 0 12-18 00:00: 00 No 1mg Remeron 15 mg tablet 0 12-18 00:00: 00 No 1mg gabapentin 300 mg capsule 0 12-18 00:00: 00 No 1mg Remeron 15 mg tablet 0 12-18 00:00: 00 No 1mg gabapentin 300 mg capsule 0 12-18 00:00: 00 No 1mg Remeron 15 mg tablet 0 11-20 00:00: 00 Yes 1mg Topher Brown gabapentin 300 mg capsule 0 - 00:00: 00 Yes 1mg Topher Brown Remeron 15 mg tablet 0 - 00:00: 00 No 1mg gabapentin 300 mg capsule 0 11-20 00:00: 00 No 1mg Remeron 15 mg tablet 0 - 00:00: 00 No 1mg gabapentin 300 mg capsule 0 - 00:00: 00 No 1mg Remeron 15 mg tablet 2019-0 11-20 00:00: 00 No 1mg gabapentin 300 mg capsule 0 11-20 00:00: 00 No 1mg Remeron 15 mg tablet 0 - 00:00: 00 No 1mg gabapentin 300 mg capsule 0 - 00:00: 00 No 1mg Remeron 15 mg tablet 11-20 00:00: 00 No 1mg gabapentin 300 mg capsule 11-20 00:00: 00 No 1mg Remeron 15 mg tablet 11-20 00:00: 00 No 1mg gabapentin 300 mg capsule 11-20 00:00: 00 No 1mg felodipine ER 10 mg tablet,exte nded release 24 hr 11-06 00:00: 00 Yes 1mg Topher Brown alendronate 70 mg tablet 11-06 00:00: 00 Yes 1mg Topher Brown atorvastati n 20 mg tablet 11-06 00:00: 00 Yes 1mg Topher Brown felodipine ER 10 mg tablet,exte nded release 24 hr 11-06 00:00: 00 No 1mg alendronate 70 mg tablet 11-06 00:00: 00 No 1mg atorvastati n 20 mg tablet 11-06 00:00: 00 No 1mg felodipine ER 10 mg tablet,exte nded release 24 hr 11-06 00:00: 00 No 1mg alendronate 70 mg tablet 11-06 00:00: 00 No 1mg atorvastati n 20 mg tablet 11-06 00:00: 00 No 1mg felodipine ER 10 mg tablet,exte nded release 24 hr 11-06 00:00: 00 No 1mg alendronate 70 mg tablet 11-06 00:00: 00 No 1mg atorvastati n 20 mg tablet 11-06 00:00: 00 No 1mg felodipine ER 10 mg tablet,exte nded release 24 hr 11-06 00:00: 00 No 1mg alendronate 70 mg tablet 11-06 00:00: 00 No 1mg atorvastati n 20 mg tablet 11-06 00:00: 00 No 1mg felodipine ER 10 mg tablet,exte nded release 24 hr 11-06 00:00: 00 No 1mg alendronate 70 mg tablet 11-06 00:00: 00 No 1mg atorvastati n 20 mg tablet 11-06 00:00: 00 No 1mg felodipine ER 10 mg tablet,exte nded release 24 hr 0 11-06 00:00: 00 No 1mg alendronate 70 mg tablet 11-06 00:00: 00 No 1mg atorvastati n 20 mg tablet 11-06 00:00: 00 No 1mg Remeron 15 mg tablet 10-23 00:00: 00 Yes 1mg Topher Brown gabapentin 300 mg capsule 10-23 00:00: 00 Yes 1mg Topher Brown Remeron 15 mg tablet 10-23 00:00: 00 No 1mg gabapentin 300 mg capsule 10-23 00:00: 00 No 1mg Remeron 15 mg tablet 10-23 00:00: 00 No 1mg gabapentin 300 mg capsule 10-23 00:00: 00 No 1mg Remeron 15 mg tablet 10-23 00:00: 00 No 1mg gabapentin 300 mg capsule 10-23 00:00: 00 No 1mg Remeron 15 mg tablet 10-23 00:00: 00 No 1mg gabapentin 300 mg capsule 10-23 00:00: 00 No 1mg Remeron 15 mg tablet 10-23 00:00: 00 No 1mg gabapentin 300 mg capsule 10-23 00:00: 00 No 1mg Remeron 15 mg tablet 10-23 00:00: 00 No 1mg gabapentin 300 mg capsule 10-23 00:00: 00 No 1mg felodipine ER 10 mg tablet,exte nded release 24 hr 0 10-06 00:00: 00 Yes 1mg Topher Brown felodipine ER 10 mg tablet,exte nded release 24 hr 0 -06 00:00: 00 No 1mg felodipine ER 10 mg tablet,exte nded release 24 hr 0 4-06 00:00: 00 No 1mg felodipine ER 10 mg tablet,exte nded release 24 hr 0 4-06 00:00: 00 No 1mg felodipine ER 10 mg tablet,exte nded release 24 hr 0 4- 00:00: 00 No 1mg felodipine ER 10 mg tablet,exte nded release 24 hr 2019-0 4-06 00:00: 00 No 1mg felodipine ER 10 mg tablet,exte nded release 24 hr 2019-0 4-06 00:00: 00 No 1mg Remeron 15 mg tablet 0 3- 00:00: 00 Yes 1mg Topher Brown gabapentin 300 mg capsule 0 3- 00:00: 00 Yes 1mg Topher Brown Remeron 15 mg tablet 0 3- 00:00: 00 No 1mg gabapentin 300 mg capsule 0 3- 00:00: 00 No 1mg Remeron 15 mg tablet 0 3 00:00: 00 No 1mg gabapentin 300 mg capsule 0 3- 00:00: 00 No 1mg Remeron 15 mg tablet 0 3 00:00: 00 No 1mg gabapentin 300 mg capsule 0 3- 00:00: 00 No 1mg Remeron 15 mg tablet 0 3- 00:00: 00 No 1mg gabapentin 300 mg capsule 0 3 00:00: 00 No 1mg Remeron 15 mg tablet 0 3- 00:00: 00 No 1mg gabapentin 300 mg capsule 0 3- 00:00: 00 No 1mg Remeron 15 mg tablet 0 3- 00:00: 00 No 1mg gabapentin 300 mg capsule 0 3- 00:00: 00 No 1mg Remeron 15 mg tablet 2019-0 2-13 00:00: 00 Yes 1mg Topher Brown gabapentin 300 mg capsule 0 2-13 00:00: 00 Yes 1mg Topher Brown Remeron 15 mg tablet 2019-0 2-13 00:00: 00 No 1mg gabapentin 300 mg capsule 2019-0 2-13 00:00: 00 No 1mg Remeron 15 mg tablet 2019-0 2-13 00:00: 00 No 1mg gabapentin 300 mg capsule 2019-0 2-13 00:00: 00 No 1mg Remeron 15 mg tablet 2019-0 2-13 00:00: 00 No 1mg gabapentin 300 mg capsule 2019-0 2-13 00:00: 00 No 1mg Remeron 15 mg tablet 2019-0 2-13 00:00: 00 No 1mg gabapentin 300 mg capsule 0 2- 00:00: 00 No 1mg Remeron 15 mg tablet 0 2- 00:00: 00 No 1mg gabapentin 300 mg capsule 0 - 00:00: 00 No 1mg Remeron 15 mg tablet 0 08-15 00:00: 00 No 1mg gabapentin 300 mg capsule 0 08-15 00:00: 00 No 1mg indomethaci n 50 mg capsule 0 - 00:00: 00 Yes 1mg Topher Brown indomethaci n 50 mg capsule 0 07-30 00:00: 00 No 1mg indomethaci n 50 mg capsule 0 07-30 00:00: 00 No 1mg indomethaci n 50 mg capsule 0 07-30 00:00: 00 No 1mg indomethaci n 50 mg capsule 07-30 00:00: 00 No 1mg indomethaci n 50 mg capsule 0 07-30 00:00: 00 No 1mg indomethaci n 50 mg capsule 0 07-30 00:00: 00 No 1mg atorvastati n 20 mg tablet 0 07-15 00:00: 00 Yes 1mg Topher Brown atorvastati n 20 mg tablet 0 - 00:00: 00 No 1mg atorvastati n 20 mg tablet 0 07-15 00:00: 00 No 1mg atorvastati n 20 mg tablet 0 07-15 00:00: 00 No 1mg atorvastati n 20 mg tablet 0 - 00:00: 00 No 1mg atorvastati n 20 mg tablet 0 07-15 00:00: 00 No 1mg atorvastati n 20 mg tablet 07-15 00:00: 00 No 1mg Remeron 15 mg tablet 0 -09 00:00: 00 Yes 1mg Topher Brown gabapentin 300 mg capsule 0 - 00:00: 00 Yes 1mg Topher Brown Remeron 15 mg tablet 0 - 00:00: 00 No 1mg gabapentin 300 mg capsule 0 - 00:00: 00 No 1mg Remeron 15 mg tablet 202007-11 00:00: 00 No 1mg gabapentin 300 mg capsule 07-11 00:00: 00 No 1mg Remeron 15 mg tablet 07-11 00:00: 00 No 1mg gabapentin 300 mg capsule 07-11 00:00: 00 No 1mg Remeron 15 mg tablet 07-11 00:00: 00 No 1mg gabapentin 300 mg capsule 07-11 00:00: 00 No 1mg Remeron 15 mg tablet 07-11 00:00: 00 No 1mg gabapentin 300 mg capsule 07-11 00:00: 00 No 1mg Remeron 15 mg tablet 07-11 00:00: 00 No 1mg gabapentin 300 mg capsule 07-11 00:00: 00 No 1mg felodipine ER 10 mg tablet,exte nded release 24 hr 2018-07 00:00: 00 Yes 1mg Topher F Kevin cyclobenzap rine 10 mg tablet 2018-07 00:00: 00 Yes 1mg Topher Tutu Brown indomethaci n 50 mg capsule 2018-07 00:00: 00 Yes 1mg Topher Brown felodipine ER 10 mg tablet,exte nded release 24 hr 2018-07 00:00: 00 No 1mg cyclobenzap rine 10 mg tablet 2018-07 00:00: 00 No 1mg indomethaci n 50 mg capsule 2018-07 00:00: 00 No 1mg felodipine ER 10 mg tablet,exte nded release 24 hr 2018-07 00:00: 00 No 1mg cyclobenzap rine 10 mg tablet 2018-07 00:00: 00 No 1mg indomethaci n 50 mg capsule 2018-07 00:00: 00 No 1mg felodipine ER 10 mg tablet,exte nded release 24 hr 2018-07 00:00: 00 No 1mg cyclobenzap rine 10 mg tablet 2018-07 00:00: 00 No 1mg indomethaci n 50 mg capsule 2018-07 00:00: 00 No 1mg felodipine ER 10 mg tablet,exte nded release 24 hr 2018-07 00:00: 00 No 1mg cyclobenzap rine 10 mg tablet 2018-07 00:00: 00 No 1mg indomethaci n 50 mg capsule 2018-07 00:00: 00 No 1mg felodipine ER 10 mg tablet,exte nded release 24 hr 2018-07 00:00: 00 No 1mg cyclobenzap rine 10 mg tablet 2018-07 00:00: 00 No 1mg indomethaci n 50 mg capsule 2018-07 00:00: 00 No 1mg felodipine ER 10 mg tablet,exte nded release 24 hr 2018-07 00:00: 00 No 1mg cyclobenzap rine 10 mg tablet 2018-07 00:00: 00 No 1mg indomethaci n 50 mg capsule 2018-07 00:00: 00 No 1mg felodipine ER 10 mg tablet,exte nded release 24 hr 2018-07 00:00: 00 Yes 1mg Topher Brown felodipine ER 10 mg tablet,exte nded release 24 hr 2018-07 00:00: 00 No 1mg felodipine ER 10 mg tablet,exte nded release 24 hr 2018-07 00:00: 00 No 1mg felodipine ER 10 mg tablet,exte nded release 24 hr 2018-07 00:00: 00 No 1mg felodipine ER 10 mg tablet,exte nded release 24 hr 2018-07 00:00: 00 No 1mg felodipine ER 10 mg tablet,exte nded release 24 hr 2018-07 00:00: 00 No 1mg felodipine ER 10 mg tablet,exte nded release 24 hr 2018-07 00:00: 00 No 1mg cyclobenzap rine 10 mg tablet 2018-07 00:00: 00 Yes 1mg Topher Brown prednisone 20 mg tablet 2018-07 00:00: 00 Yes mg Topher Brown indomethaci n 50 mg capsule 2018-07 00:00: 00 Yes 1mg Topher Brown cyclobenzap rine 10 mg tablet 2018-07 00:00: 00 No 1mg prednisone 20 mg tablet 2018-07 00:00: 00 No mg indomethaci n 50 mg capsule 2019-1 2-10 00:00: 00 No 1mg cyclobenzap rine 10 mg tablet 2018-07 2-10 00:00: 00 No 1mg prednisone 20 mg tablet 2018-07 2-10 00:00: 00 No mg indomethaci n 50 mg capsule 2018-07 2- 00:00: 00 No 1mg cyclobenzap rine 10 mg tablet 2018-07 2 00:00: 00 No 1mg prednisone 20 mg tablet 2018-07 2 00:00: 00 No mg indomethaci n 50 mg capsule 2018-07 2- 00:00: 00 No 1mg cyclobenzap rine 10 mg tablet 2018-07 2 00:00: 00 No 1mg prednisone 20 mg tablet 2018-07 2 00:00: 00 No mg indomethaci n 50 mg capsule 2018-07 2 00:00: 00 No 1mg cyclobenzap rine 10 mg tablet 2018-07 2 00:00: 00 No 1mg prednisone 20 mg tablet 2018-07 2 00:00: 00 No mg indomethaci n 50 mg capsule 2018-07 2 00:00: 00 No 1mg cyclobenzap rine 10 mg tablet 2018-07 2 00:00: 00 No 1mg prednisone 20 mg tablet 2018-07 2 00:00: 00 No mg indomethaci n 50 mg capsule 2018-07 2 00:00: 00 No 1mg Remeron 15 mg tablet 2018-07 2-05 00:00: 00 Yes 1mg Topher Brown gabapentin 300 mg capsule 2018-07 2-05 00:00: 00 Yes 1mg Topher Brown Remeron 15 mg tablet 2018-07 2-05 00:00: 00 No 1mg gabapentin 300 mg capsule 2018-07 2-05 00:00: 00 No 1mg Remeron 15 mg tablet 2018-07 2-05 00:00: 00 No 1mg gabapentin 300 mg capsule 2018-07 2-05 00:00: 00 No 1mg Remeron 15 mg tablet 2018-07 2-05 00:00: 00 No 1mg gabapentin 300 mg capsule 2018-07 2-05 00:00: 00 No 1mg Remeron 15 mg tablet 2018-07 2-05 00:00: 00 No 1mg gabapentin 300 mg capsule 2018-07 205 00:00: 00 No 1mg Remeron 15 mg tablet 2018-07 00:00: 00 No 1mg gabapentin 300 mg capsule 2018-07 00:00: 00 No 1mg Remeron 15 mg tablet 2018-07 00:00: 00 No 1mg gabapentin 300 mg capsule 2018-07 00:00: 00 No 1mg felodipine ER 10 mg tablet,exte nded release 24 hr 2018-07 00:00: 00 Yes 1mg Topher Brown felodipine ER 10 mg tablet,exte nded release 24 hr 2018-07 00:00: 00 No 1mg felodipine ER 10 mg tablet,exte nded release 24 hr 2018-07 00:00: 00 No 1mg felodipine ER 10 mg tablet,exte nded release 24 hr 2018-07 00:00: 00 No 1mg felodipine ER 10 mg tablet,exte nded release 24 hr 2018-07 00:00: 00 No 1mg felodipine ER 10 mg tablet,exte nded release 24 hr 2018-07 00:00: 00 No 1mg felodipine ER 10 mg tablet,exte nded release 24 hr 2018-07 00:00: 00 No 1mg Remeron 15 mg tablet 2018-07 00:00: 00 Yes 1mg Topher Brown gabapentin 300 mg capsule 2018-07 00:00: 00 Yes 1mg Topher Brown Remeron 15 mg tablet 2018-07 00:00: 00 No 1mg gabapentin 300 mg capsule 2018-07 00:00: 00 No 1mg Remeron 15 mg tablet 2018-07 00:00: 00 No 1mg gabapentin 300 mg capsule 2018-07 00:00: 00 No 1mg Remeron 15 mg tablet 2018-07 00:00: 00 No 1mg gabapentin 300 mg capsule 2018-07 00:00: 00 No 1mg Remeron 15 mg tablet 2018-07 00:00: 00 No 1mg gabapentin 300 mg capsule 2018-07 00:00: 00 No 1mg Remeron 15 mg tablet 2018-07 00:00: 00 No 1mg gabapentin 300 mg capsule 2018-07 00:00: 00 No 1mg Remeron 15 mg tablet 2018-07 00:00: 00 No 1mg gabapentin 300 mg capsule 2018-07 00:00: 00 No 1mg alendronate 70 mg tablet 2018-07 00:00: 00 Yes 1mg Topher Brown prednisone 20 mg tablet 2018-07 00:00: 00 Yes mg Topher Brown alendronate 70 mg tablet 2018-07 00:00: 00 No 1mg prednisone 20 mg tablet 2018-07 00:00: 00 No mg alendronate 70 mg tablet 2018-07 00:00: 00 No 1mg prednisone 20 mg tablet 2018-07 00:00: 00 No mg alendronate 70 mg tablet 2018-07 00:00: 00 No 1mg prednisone 20 mg tablet 2018-07 00:00: 00 No mg alendronate 70 mg tablet 2018-07 00:00: 00 No 1mg prednisone 20 mg tablet 2018-07 00:00: 00 No mg alendronate 70 mg tablet 2018-07 00:00: 00 No 1mg prednisone 20 mg tablet 2018-07 00:00: 00 No mg alendronate 70 mg tablet 2018-07 00:00: 00 No 1mg prednisone 20 mg tablet 2018-07 00:00: 00 No mg Remeron 15 mg tablet 03-28 00:00: 00 Yes 1mg Topher Brown gabapentin 300 mg capsule 03-28 00:00: 00 Yes 1mg Topher Brown Remeron 15 mg tablet 03-28 00:00: 00 No 1mg gabapentin 300 mg capsule 03-28 00:00: 00 No 1mg Remeron 15 mg tablet 03-28 00:00: 00 No 1mg gabapentin 300 mg capsule 03-28 00:00: 00 No 1mg Remeron 15 mg tablet 03-28 00:00: 00 No 1mg gabapentin 300 mg capsule 03-28 00:00: 00 No 1mg Remeron 15 mg tablet 03-28 00:00: 00 No 1mg gabapentin 300 mg capsule 03-28 00:00: 00 No 1mg Remeron 15 mg tablet 03-28 00:00: 00 No 1mg gabapentin 300 mg capsule 03-28 00:00: 00 No 1mg Remeron 15 mg tablet 03-28 00:00: 00 No 1mg gabapentin 300 mg capsule 03-28 00:00: 00 No 1mg Dose Unknown 03-27 00:00: 00 Yes Topher Brown Dose Unknown 03-27 00:00: 00 No Dose Unknown 03-27 00:00: 00 No Dose Unknown 03-27 00:00: 00 No Dose Unknown 03-27 00:00: 00 No Dose Unknown 03-27 00:00: 00 No Dose Unknown 03-27 00:00: 00 No ibuprofen 600 mg tablet 02-21 00:00: 00 Yes 1mg Topher Cam Kevin ibuprofen 600 mg tablet 02-21 00:00: 00 No 1mg ibuprofen 600 mg tablet 02-21 00:00: 00 No 1mg ibuprofen 600 mg tablet 02-21 00:00: 00 No 1mg ibuprofen 600 mg tablet 02-21 00:00: 00 No 1mg ibuprofen 600 mg tablet 02-21 00:00: 00 No 1mg ibuprofen 600 mg tablet 02-21 00:00: 00 No 1mg cyclobenzap rine 5 mg tablet 02-12 00:00: 00 Yes 1mg Topher Brown cyclobenzap rine 5 mg tablet 02-12 00:00: 00 No 1mg cyclobenzap rine 5 mg tablet 02-12 00:00: 00 No 1mg cyclobenzap rine 5 mg tablet 02-12 00:00: 00 No 1mg cyclobenzap rine 5 mg tablet 02-12 00:00: 00 No 1mg cyclobenzap rine 5 mg tablet 02-12 00:00: 00 No 1mg cyclobenzap rine 5 mg tablet 02-12 00:00: 00 No 1mg Remeron 15 mg tablet 01-31 00:00: 00 Yes 1mg Topher F Kevin gabapentin 300 mg capsule 01-31 00:00: 00 Yes 1mg Topher Brown Remeron 15 mg tablet 01-31 00:00: 00 No 1mg gabapentin 300 mg capsule 01-31 00:00: 00 No 1mg Remeron 15 mg tablet 01-31 00:00: 00 No 1mg gabapentin 300 mg capsule 01-31 00:00: 00 No 1mg Remeron 15 mg tablet 01-31 00:00: 00 No 1mg gabapentin 300 mg capsule 01-31 00:00: 00 No 1mg Remeron 15 mg tablet 01-31 00:00: 00 No 1mg gabapentin 300 mg capsule 01-31 00:00: 00 No 1mg Remeron 15 mg tablet 01-31 00:00: 00 No 1mg gabapentin 300 mg capsule 01-31 00:00: 00 No 1mg Remeron 15 mg tablet 01-31 00:00: 00 No 1mg gabapentin 300 mg capsule 01-31 00:00: 00 No 1mg felodipine ER 10 mg tablet,exte nded release 24 hr 01-25 00:00: 00 Yes 1mg Topher Brown felodipine ER 10 mg tablet,exte nded release 24 hr 01-25 00:00: 00 No 1mg felodipine ER 10 mg tablet,exte nded release 24 hr 01-25 00:00: 00 No 1mg felodipine ER 10 mg tablet,exte nded release 24 hr 01-25 00:00: 00 No 1mg felodipine ER 10 mg tablet,exte nded release 24 hr 01-25 00:00: 00 No 1mg felodipine ER 10 mg tablet,exte nded release 24 hr 01-25 00:00: 00 No 1mg felodipine ER 10 mg tablet,exte nded release 24 hr 01-25 00:00: 00 No 1mg amlodipine 10 mg tablet 01-11 00:00: 00 Yes 1mg Topher Brown cyclobenzap rine 5 mg tablet 01-11 00:00: 00 Yes 1mg Topher Brown amlodipine 10 mg tablet 01-11 00:00: 00 No 1mg cyclobenzap rine 5 mg tablet 01-11 00:00: 00 No 1mg amlodipine 10 mg tablet 01-11 00:00: 00 No 1mg cyclobenzap rine 5 mg tablet 01-11 00:00: 00 No 1mg amlodipine 10 mg tablet 01-11 00:00: 00 No 1mg cyclobenzap rine 5 mg tablet 01-11 00:00: 00 No 1mg amlodipine 10 mg tablet 01-11 00:00: 00 No 1mg cyclobenzap rine 5 mg tablet 01-11 00:00: 00 No 1mg amlodipine 10 mg tablet 01-11 00:00: 00 No 1mg cyclobenzap rine 5 mg tablet 01-11 00:00: 00 No 1mg amlodipine 10 mg tablet 01-11 00:00: 00 No 1mg cyclobenzap rine 5 mg tablet 01-11 00:00: 00 No 1mg Remeron 15 mg tablet 12-27 00:00: 00 Yes 1mg Topher Brown gabapentin 300 mg capsule 12-27 00:00: 00 Yes 1mg Topher Brown Remeron 15 mg tablet 12-27 00:00: 00 No 1mg gabapentin 300 mg capsule 12-27 00:00: 00 No 1mg Remeron 15 mg tablet 12-27 00:00: 00 No 1mg gabapentin 300 mg capsule 12-27 00:00: 00 No 1mg Remeron 15 mg tablet 12-27 00:00: 00 No 1mg gabapentin 300 mg capsule 12-27 00:00: 00 No 1mg Remeron 15 mg tablet 12-27 00:00: 00 No 1mg gabapentin 300 mg capsule 12-27 00:00: 00 No 1mg Remeron 15 mg tablet 12-27 00:00: 00 No 1mg gabapentin 300 mg capsule 12-27 00:00: 00 No 1mg Remeron 15 mg tablet 12-27 00:00: 00 No 1mg gabapentin 300 mg capsule 12-27 00:00: 00 No 1mg Remeron 15 mg tablet 12-12 00:00: 00 Yes 1mg Topher Brown gabapentin 300 mg capsule 12-12 00:00: 00 Yes 1mg Topher Brown Remeron 15 mg tablet 12-12 00:00: 00 No 1mg gabapentin 300 mg capsule 12-12 00:00: 00 No 1mg Remeron 15 mg tablet 12-12 00:00: 00 No 1mg gabapentin 300 mg capsule 12-12 00:00: 00 No 1mg Remeron 15 mg tablet 12-12 00:00: 00 No 1mg gabapentin 300 mg capsule 12-12 00:00: 00 No 1mg Remeron 15 mg tablet 12-12 00:00: 00 No 1mg gabapentin 300 mg capsule 12-12 00:00: 00 No 1mg Remeron 15 mg tablet 12-12 00:00: 00 No 1mg gabapentin 300 mg capsule 12-12 00:00: 00 No 1mg Remeron 15 mg tablet 12-12 00:00: 00 No 1mg gabapentin 300 mg capsule 12-12 00:00: 00 No 1mg prednisone 20 mg tablet 11-14 00:00: 00 Yes mg Topher Brown indomethaci n 50 mg capsule 11-14 00:00: 00 Yes 1mg Topher Brown prednisone 20 mg tablet 11-14 00:00: 00 No mg indomethaci n 50 mg capsule 11-14 00:00: 00 No 1mg prednisone 20 mg tablet 11-14 00:00: 00 No mg indomethaci n 50 mg capsule 11-14 00:00: 00 No 1mg prednisone 20 mg tablet 11-14 00:00: 00 No mg indomethaci n 50 mg capsule 11-14 00:00: 00 No 1mg prednisone 20 mg tablet 11-14 00:00: 00 No mg indomethaci n 50 mg capsule 11-14 00:00: 00 No 1mg prednisone 20 mg tablet 11-14 00:00: 00 No mg indomethaci n 50 mg capsule 11-14 00:00: 00 No 1mg prednisone 20 mg tablet 11-14 00:00: 00 No mg indomethaci n 50 mg capsule 11-14 00:00: 00 No 1mg gabapentin 300 mg capsule 11-05 00:00: 00 Yes 1mg Topher Brown gabapentin 300 mg capsule 11-05 00:00: 00 No 1mg gabapentin 300 mg capsule 11-05 00:00: 00 No 1mg gabapentin 300 mg capsule 11-05 00:00: 00 No 1mg gabapentin 300 mg capsule 11-05 00:00: 00 No 1mg gabapentin 300 mg capsule 11-05 00:00: 00 No 1mg gabapentin 300 mg capsule 11-05 00:00: 00 No 1mg Remeron 15 mg tablet 10-11 00:00: 00 Yes 1mg Topher Brown gabapentin 300 mg capsule 10-11 00:00: 00 Yes 1mg Topher Brown Remeron 15 mg tablet 10-11 00:00: 00 No 1mg gabapentin 300 mg capsule 10-11 00:00: 00 No 1mg Remeron 15 mg tablet 10-11 00:00: 00 No 1mg gabapentin 300 mg capsule 10-11 00:00: 00 No 1mg Remeron 15 mg tablet 10-11 00:00: 00 No 1mg gabapentin 300 mg capsule 10-11 00:00: 00 No 1mg Remeron 15 mg tablet 10-11 00:00: 00 No 1mg gabapentin 300 mg capsule 10-11 00:00: 00 No 1mg Remeron 15 mg tablet 10-11 00:00: 00 No 1mg gabapentin 300 mg capsule 10-11 00:00: 00 No 1mg Remeron 15 mg tablet 10-11 00:00: 00 No 1mg gabapentin 300 mg capsule 10-11 00:00: 00 No 1mg cyclobenzap rine 5 mg tablet 10-01 00:00: 00 Yes 1mg Topher Brown cyclobenzap rine 5 mg tablet 10-01 00:00: 00 No 1mg cyclobenzap rine 5 mg tablet 10-01 00:00: 00 No 1mg cyclobenzap rine 5 mg tablet 10-01 00:00: 00 No 1mg cyclobenzap rine 5 mg tablet 10-01 00:00: 00 No 1mg cyclobenzap rine 5 mg tablet 10-01 00:00: 00 No 1mg cyclobenzap rine 5 mg tablet 10-01 00:00: 00 No 1mg Remeron 15 mg tablet 09-06 00:00: 00 Yes 1mg Topher Brown gabapentin 300 mg capsule 09-06 00:00: 00 Yes 1mg Topher Brown Remeron 15 mg tablet 09-06 00:00: 00 No 1mg gabapentin 300 mg capsule 09-06 00:00: 00 No 1mg Remeron 15 mg tablet 09-06 00:00: 00 No 1mg gabapentin 300 mg capsule 09-06 00:00: 00 No 1mg Remeron 15 mg tablet 09-06 00:00: 00 No 1mg gabapentin 300 mg capsule 09-06 00:00: 00 No 1mg Remeron 15 mg tablet 09-06 00:00: 00 No 1mg gabapentin 300 mg capsule 09-06 00:00: 00 No 1mg Remeron 15 mg tablet 09-06 00:00: 00 No 1mg gabapentin 300 mg capsule 09-06 00:00: 00 No 1mg Remeron 15 mg tablet 09-06 00:00: 00 No 1mg gabapentin 300 mg capsule 09-06 00:00: 00 No 1mg Remeron 15 mg tablet 08-09 00:00: 00 Yes 1mg Topher Brown Remeron 15 mg tablet 08-09 00:00: 00 No 1mg Remeron 15 mg tablet 2 00:00: 00 No 1mg Remeron 15 mg tablet 08-09 00:00: 00 No 1mg Remeron 15 mg tablet 08-09 00:00: 00 No 1mg Remeron 15 mg tablet 08-09 00:00: 00 No 1mg Remeron 15 mg tablet 08-09 00:00: 00 No 1mg amlodipine 10 mg tablet 08-02 00:00: 00 Yes 1mg Topher Brown metronidazo le 500 mg tablet 08-02 00:00: 00 Yes 1mg Topher Brown amlodipine 10 mg tablet 08-02 00:00: 00 No 1mg metronidazo le 500 mg tablet 08-02 00:00: 00 No 1mg amlodipine 10 mg tablet 08-02 00:00: 00 No 1mg metronidazo le 500 mg tablet 08-02 00:00: 00 No 1mg amlodipine 10 mg tablet 08-02 00:00: 00 No 1mg metronidazo le 500 mg tablet 08-02 00:00: 00 No 1mg amlodipine 10 mg tablet 08-02 00:00: 00 No 1mg metronidazo le 500 mg tablet 08-02 00:00: 00 No 1mg amlodipine 10 mg tablet 08-02 00:00: 00 No 1mg metronidazo le 500 mg tablet 08-02 00:00: 00 No 1mg amlodipine 10 mg tablet 08-02 00:00: 00 No 1mg metronidazo le 500 mg tablet 08-02 00:00: 00 No 1mg amlodipine 10 mg tablet 07-26 00:00: 00 Yes 1mg Topher Brown cyclobenzap rine 5 mg tablet 07-26 00:00: 00 Yes 1mg Topher Brown Vitamin D2 50,000 unit capsule 07-26 00:00: 00 Yes 1unit Topher Brown amlodipine 10 mg tablet 07-26 00:00: 00 No 1mg cyclobenzap rine 5 mg tablet 07-26 00:00: 00 No 1mg Vitamin D2 50,000 unit capsule 07-26 00:00: 00 No 1unit amlodipine 10 mg tablet 07-26 00:00: 00 No 1mg cyclobenzap rine 5 mg tablet 07-26 00:00: 00 No 1mg Vitamin D2 50,000 unit capsule 07-26 00:00: 00 No 1unit amlodipine 10 mg tablet 07-26 00:00: 00 No 1mg cyclobenzap rine 5 mg tablet 07-26 00:00: 00 No 1mg Vitamin D2 50,000 unit capsule 07-26 00:00: 00 No 1unit amlodipine 10 mg tablet 07-26 00:00: 00 No 1mg cyclobenzap rine 5 mg tablet 07-26 00:00: 00 No 1mg Vitamin D2 50,000 unit capsule 07-26 00:00: 00 No 1unit amlodipine 10 mg tablet 07-26 00:00: 00 No 1mg cyclobenzap rine 5 mg tablet 07-26 00:00: 00 No 1mg Vitamin D2 50,000 unit capsule 07-26 00:00: 00 No 1unit amlodipine 10 mg tablet 07-26 00:00: 00 No 1mg cyclobenzap rine 5 mg tablet 07-26 00:00: 00 No 1mg Vitamin D2 50,000 unit capsule 07-26 00:00: 00 No 1unit Remeron 15 mg tablet 07-19 00:00: 00 Yes 1mg Topher Brown gabapentin 300 mg capsule 07-19 00:00: 00 Yes 1mg Topher Brown Remeron 15 mg tablet 07-19 00:00: 00 No 1mg gabapentin 300 mg capsule 07-19 00:00: 00 No 1mg Remeron 15 mg tablet 07-19 00:00: 00 No 1mg gabapentin 300 mg capsule 07-19 00:00: 00 No 1mg Remeron 15 mg tablet 07-19 00:00: 00 No 1mg gabapentin 300 mg capsule 07-19 00:00: 00 No 1mg Remeron 15 mg tablet 07-19 00:00: 00 No 1mg gabapentin 300 mg capsule 07-19 00:00: 00 No 1mg Remeron 15 mg tablet 07-19 00:00: 00 No 1mg gabapentin 300 mg capsule 07-19 00:00: 00 No 1mg Remeron 15 mg tablet 07-19 00:00: 00 No 1mg gabapentin 300 mg capsule 07-19 00:00: 00 No 1mg cyclobenzap rine 5 mg tablet 2017-07 00:00: 00 Yes 1mg Topher Brown cyclobenzap rine 5 mg tablet 2017-07 00:00: 00 No 1mg cyclobenzap rine 5 mg tablet 2017-07 00:00: 00 No 1mg cyclobenzap rine 5 mg tablet 2017-07 00:00: 00 No 1mg cyclobenzap rine 5 mg tablet 2017-07 00:00: 00 No 1mg cyclobenzap rine 5 mg tablet 2017-07 00:00: 00 No 1mg cyclobenzap rine 5 mg tablet 2017-07 00:00: 00 No 1mg gabapentin 300 mg capsule 2017-07 00:00: 00 Yes 1mg Topher Brown gabapentin 300 mg capsule 2017-07 00:00: 00 No 1mg gabapentin 300 mg capsule 2017-07 00:00: 00 No 1mg gabapentin 300 mg capsule 2017-07 00:00: 00 No 1mg gabapentin 300 mg capsule 2017-07 00:00: 00 No 1mg gabapentin 300 mg capsule 2017-07 00:00: 00 No 1mg gabapentin 300 mg capsule 2017-07 00:00: 00 No 1mg Remeron 15 mg tablet 2017-07 00:00: 00 Yes 1mg Topher Brown gabapentin 300 mg capsule 2017-07 00:00: 00 Yes 1mg Topher Brown Remeron 15 mg tablet 2017-07 00:00: 00 No 1mg gabapentin 300 mg capsule 2017-07 00:00: 00 No 1mg Remeron 15 mg tablet 2017-07 00:00: 00 No 1mg gabapentin 300 mg capsule 2017-07 00:00: 00 No 1mg Remeron 15 mg tablet 2017-07 00:00: 00 No 1mg gabapentin 300 mg capsule 2017-07 00:00: 00 No 1mg Remeron 15 mg tablet 2017-07 00:00: 00 No 1mg gabapentin 300 mg capsule 2017-07 00:00: 00 No 1mg Remeron 15 mg tablet 2017-07 00:00: 00 No 1mg gabapentin 300 mg capsule 2017-07 00:00: 00 No 1mg Remeron 15 mg tablet 2017-07 00:00: 00 No 1mg gabapentin 300 mg capsule 2017-07 00:00: 00 No 1mg Remeron 15 mg tablet 03-29 00:00: 00 Yes 1mg Topher Brown gabapentin 300 mg capsule 03-29 00:00: 00 Yes 1mg Tohper Brown gabapentin 300 mg capsule 03-29 00:00: 00 No 1mg Remeron 15 mg tablet 03-29 00:00: 00 No 1mg gabapentin 300 mg capsule 03-29 00:00: 00 No 1mg Remeron 15 mg tablet 03-29 00:00: 00 No 1mg gabapentin 300 mg capsule 03-29 00:00: 00 No 1mg Remeron 15 mg tablet 03-29 00:00: 00 No 1mg gabapentin 300 mg capsule 03-29 00:00: 00 No 1mg Remeron 15 mg tablet 03-29 00:00: 00 No 1mg gabapentin 300 mg capsule 03-29 00:00: 00 No 1mg Remeron 15 mg tablet 03-29 00:00: 00 No 1mg gabapentin 300 mg capsule 03-29 00:00: 00 No 1mg Remeron 15 mg tablet 03-29 00:00: 00 No 1mg cyclobenzap rine 5 mg tablet 03-07 00:00: 00 Yes 1mg Topher Brown ibuprofen 600 mg tablet 03-07 00:00: 00 Yes 1mg Topher Brown cyclobenzap rine 5 mg tablet 03-07 00:00: 00 No 1mg ibuprofen 600 mg tablet 03-07 00:00: 00 No 1mg cyclobenzap rine 5 mg tablet 03-07 00:00: 00 No 1mg ibuprofen 600 mg tablet 03-07 00:00: 00 No 1mg cyclobenzap rine 5 mg tablet 03-07 00:00: 00 No 1mg ibuprofen 600 mg tablet 03-07 00:00: 00 No 1mg cyclobenzap rine 5 mg tablet 03-07 00:00: 00 No 1mg ibuprofen 600 mg tablet 03-07 00:00: 00 No 1mg cyclobenzap rine 5 mg tablet 03-07 00:00: 00 No 1mg ibuprofen 600 mg tablet 03-07 00:00: 00 No 1mg cyclobenzap rine 5 mg tablet 03-07 00:00: 00 No 1mg ibuprofen 600 mg tablet 03-07 00:00: 00 No 1mg Remeron 15 mg tablet 02-22 00:00: 00 Yes 1mg Topher Brown Remeron 15 mg tablet 02-22 00:00: 00 No 1mg Remeron 15 mg tablet 02-22 00:00: 00 No 1mg Remeron 15 mg tablet 02-22 00:00: 00 No 1mg Remeron 15 mg tablet 02-22 00:00: 00 No 1mg Remeron 15 mg tablet 02-22 00:00: 00 No 1mg Remeron 15 mg tablet 02-22 00:00: 00 No 1mg Remeron 15 mg tablet 01-18 00:00: 00 Yes 1mg Topher Brown Remeron 15 mg tablet 01-18 00:00: 00 No 1mg Remeron 15 mg tablet 01-18 00:00: 00 No 1mg Remeron 15 mg tablet 01-18 00:00: 00 No 1mg Remeron 15 mg tablet 01-18 00:00: 00 No 1mg Remeron 15 mg tablet 01-18 00:00: 00 No 1mg Remeron 15 mg tablet 01-18 00:00: 00 No 1mg Lipitor 10 mg tablet 01-09 00:00: 00 Yes 1mg Topher Brown metformin 500 mg tablet 01-09 00:00: 00 Yes 1mg Topher Brown Lipitor 10 mg tablet 01-09 00:00: 00 No 1mg metformin 500 mg tablet 01-09 00:00: 00 No 1mg Lipitor 10 mg tablet 01-09 00:00: 00 No 1mg metformin 500 mg tablet 01-09 00:00: 00 No 1mg Lipitor 10 mg tablet 01-09 00:00: 00 No 1mg metformin 500 mg tablet 01-09 00:00: 00 No 1mg Lipitor 10 mg tablet 01-09 00:00: 00 No 1mg metformin 500 mg tablet 01-09 00:00: 00 No 1mg Lipitor 10 mg tablet 01-09 00:00: 00 No 1mg metformin 500 mg tablet 01-09 00:00: 00 No 1mg Lipitor 10 mg tablet 01-09 00:00: 00 No 1mg metformin 500 mg tablet 01-09 00:00: 00 No 1mg Remeron 15 mg tablet 12-14 00:00: 00 Yes 1mg Topher Brown Remeron 15 mg tablet 12-14 00:00: 00 No 1mg Remeron 15 mg tablet 12-14 00:00: 00 No 1mg Remeron 15 mg tablet 12-14 00:00: 00 No 1mg Remeron 15 mg tablet 12-14 00:00: 00 No 1mg Remeron 15 mg tablet 12-14 00:00: 00 No 1mg Remeron 15 mg tablet 12-14 00:00: 00 No 1mg Remeron 15 mg tablet 11-09 00:00: 00 Yes 1mg Topher Brown Remeron 15 mg tablet 11-09 00:00: 00 No 1mg Remeron 15 mg tablet 11-09 00:00: 00 No 1mg Remeron 15 mg tablet 11-09 00:00: 00 No 1mg Remeron 15 mg tablet 11-09 00:00: 00 No 1mg Remeron 15 mg tablet 11-09 00:00: 00 No 1mg Remeron 15 mg tablet 11-09 00:00: 00 No 1mg amlodipine 10 mg tablet 10-31 00:00: 00 Yes 1mg Topher Brown ketorolac 10 mg tablet 10-31 00:00: 00 Yes 1mg Topher Brown gabapentin 300 mg capsule 10-31 00:00: 00 Yes 1mg Topher Brown amlodipine 10 mg tablet 10-31 00:00: 00 No 1mg ketorolac 10 mg tablet 10-31 00:00: 00 No 1mg gabapentin 300 mg capsule 10-31 00:00: 00 No 1mg amlodipine 10 mg tablet 10-31 00:00: 00 No 1mg ketorolac 10 mg tablet 10-31 00:00: 00 No 1mg gabapentin 300 mg capsule 10-31 00:00: 00 No 1mg amlodipine 10 mg tablet 10-31 00:00: 00 No 1mg ketorolac 10 mg tablet 10-31 00:00: 00 No 1mg gabapentin 300 mg capsule 10-31 00:00: 00 No 1mg amlodipine 10 mg tablet 10-31 00:00: 00 No 1mg ketorolac 10 mg tablet 10-31 00:00: 00 No 1mg gabapentin 300 mg capsule 10-31 00:00: 00 No 1mg amlodipine 10 mg tablet 10-31 00:00: 00 No 1mg ketorolac 10 mg tablet 10-31 00:00: 00 No 1mg gabapentin 300 mg capsule 10-31 00:00: 00 No 1mg amlodipine 10 mg tablet 10-31 00:00: 00 No 1mg ketorolac 10 mg tablet 10-31 00:00: 00 No 1mg gabapentin 300 mg capsule 10-31 00:00: 00 No 1mg hydrocodone 10 mg-acetamin ophen 325 mg tablet 10-18 00:00: 00 Yes mg Topher Brown promethazin e 12.5 mg tablet 10-18 00:00: 00 Yes mg Topher Brown hydrocodone 10 mg-acetamin ophen 325 mg tablet 10-18 00:00: 00 No mg promethazin e 12.5 mg tablet 10-18 00:00: 00 No mg hydrocodone 10 mg-acetamin ophen 325 mg tablet 10-18 00:00: 00 No mg promethazin e 12.5 mg tablet 10-18 00:00: 00 No mg hydrocodone 10 mg-acetamin ophen 325 mg tablet 10-18 00:00: 00 No mg promethazin e 12.5 mg tablet 10-18 00:00: 00 No mg hydrocodone 10 mg-acetamin ophen 325 mg tablet 10-18 00:00: 00 No mg promethazin e 12.5 mg tablet 10-18 00:00: 00 No mg hydrocodone 10 mg-acetamin ophen 325 mg tablet 10-18 00:00: 00 No mg promethazin e 12.5 mg tablet 10-18 00:00: 00 No mg hydrocodone 10 mg-acetamin ophen 325 mg tablet 10-18 00:00: 00 No mg promethazin e 12.5 mg tablet 10-18 00:00: 00 No mg amlodipine 10 mg tablet 10-12 00:00: 00 Yes 1mg Topher Brown gabapentin 300 mg capsule 10-12 00:00: 00 Yes 1mg Topher Brown amlodipine 10 mg tablet 10-12 00:00: 00 No 1mg gabapentin 300 mg capsule 10-12 00:00: 00 No 1mg amlodipine 10 mg tablet 10-12 00:00: 00 No 1mg gabapentin 300 mg capsule 10-12 00:00: 00 No 1mg amlodipine 10 mg tablet 10-12 00:00: 00 No 1mg gabapentin 300 mg capsule 10-12 00:00: 00 No 1mg amlodipine 10 mg tablet 10-12 00:00: 00 No 1mg gabapentin 300 mg capsule 10-12 00:00: 00 No 1mg amlodipine 10 mg tablet 10-12 00:00: 00 No 1mg gabapentin 300 mg capsule 10-12 00:00: 00 No 1mg amlodipine 10 mg tablet 10-12 00:00: 00 No 1mg gabapentin 300 mg capsule 10-12 00:00: 00 No 1mg Remeron 15 mg tablet 09-21 00:00: 00 Yes 1mg Topher Brown Remeron 15 mg tablet 09-21 00:00: 00 No 1mg Remeron 15 mg tablet 09-21 00:00: 00 No 1mg Remeron 15 mg tablet 09-21 00:00: 00 No 1mg Remeron 15 mg tablet 09-21 00:00: 00 No 1mg Remeron 15 mg tablet 09-21 00:00: 00 No 1mg Remeron 15 mg tablet 09-21 00:00: 00 No 1mg Remeron 15 mg tablet 07-27 00:00: 00 Yes 1mg Topher Brown gabapentin 300 mg capsule 07-27 00:00: 00 Yes 1mg Topher Brown Remeron 15 mg tablet 07-27 00:00: 00 No 1mg gabapentin 300 mg capsule 07-27 00:00: 00 No 1mg Remeron 15 mg tablet 07-27 00:00: 00 No 1mg gabapentin 300 mg capsule 07-27 00:00: 00 No 1mg Remeron 15 mg tablet 07-27 00:00: 00 No 1mg gabapentin 300 mg capsule 07-27 00:00: 00 No 1mg Remeron 15 mg tablet 07-27 00:00: 00 No 1mg gabapentin 300 mg capsule 07-27 00:00: 00 No 1mg Remeron 15 mg tablet 07-27 00:00: 00 No 1mg gabapentin 300 mg capsule 07-27 00:00: 00 No 1mg Remeron 15 mg tablet 07-27 00:00: 00 No 1mg gabapentin 300 mg capsule 07-27 00:00: 00 No 1mg naproxen 500 mg tablet 07-25 00:00: 00 Yes 1mg Topher Brown naproxen 500 mg tablet 07-25 00:00: 00 No 1mg naproxen 500 mg tablet 07-25 00:00: 00 No 1mg naproxen 500 mg tablet 07-25 00:00: 00 No 1mg naproxen 500 mg tablet 07-25 00:00: 00 No 1mg naproxen 500 mg tablet 07-25 00:00: 00 No 1mg naproxen 500 mg tablet 07-25 00:00: 00 No 1mg Remeron 15 mg tablet 2016-07 00:00: 00 Yes 1mg Topher F Kevin gabapentin 300 mg capsule 2016-07 00:00: 00 Yes 1mg Topher Tutu Kevin Remeron 15 mg tablet 2016-07 00:00: 00 No 1mg gabapentin 300 mg capsule 2016-07 00:00: 00 No 1mg Remeron 15 mg tablet 2016-07 00:00: 00 No 1mg gabapentin 300 mg capsule 2016-07 00:00: 00 No 1mg Remeron 15 mg tablet 2016-07 00:00: 00 No 1mg gabapentin 300 mg capsule 2016-07 00:00: 00 No 1mg Remeron 15 mg tablet 2016-07 00:00: 00 No 1mg gabapentin 300 mg capsule 2016-07 00:00: 00 No 1mg Remeron 15 mg tablet 2016-07 00:00: 00 No 1mg gabapentin 300 mg capsule 2016-07 00:00: 00 No 1mg Remeron 15 mg tablet 2016-07 00:00: 00 No 1mg gabapentin 300 mg capsule 2016-07 00:00: 00 No 1mg naproxen 500 mg tablet 2016-07 00:00: 00 Yes 1mg Topher Brown naproxen 500 mg tablet 2016-07 00:00: 00 No 1mg naproxen 500 mg tablet 2016-07 00:00: 00 No 1mg naproxen 500 mg tablet 2016-07 00:00: 00 No 1mg naproxen 500 mg tablet 2016-07 00:00: 00 No 1mg naproxen 500 mg tablet 2016-07 00:00: 00 No 1mg naproxen 500 mg tablet 2016-07 00:00: 00 No 1mg amlodipine 5 mg tablet 2016-07 00:00: 00 Yes 1mg Topher Brown meloxicam 7.5 mg tablet 2016-07 00:00: 00 Yes 1mg Topher Brown amlodipine 5 mg tablet 2016-07 00:00: 00 No 1mg meloxicam 7.5 mg tablet 2016-07 00:00: 00 No 1mg amlodipine 5 mg tablet 2016-07 00:00: 00 No 1mg meloxicam 7.5 mg tablet 2016-07 00:00: 00 No 1mg amlodipine 5 mg tablet 2016-07 00:00: 00 No 1mg meloxicam 7.5 mg tablet 2016-07 00:00: 00 No 1mg amlodipine 5 mg tablet 2016-07 00:00: 00 No 1mg meloxicam 7.5 mg tablet 2016-07 00:00: 00 No 1mg amlodipine 5 mg tablet 2016-07 00:00: 00 No 1mg meloxicam 7.5 mg tablet 2016-07 00:00: 00 No 1mg amlodipine 5 mg tablet 2016-07 00:00: 00 No 1mg meloxicam 7.5 mg tablet 2016-07 00:00: 00 No 1mg Remeron 15 mg tablet 2016-07 00:00: 00 Yes 1mg Topher Brown Remeron 15 mg tablet 2016-07 00:00: 00 No 1mg Remeron 15 mg tablet 2016-07 00:00: 00 No 1mg Remeron 15 mg tablet 2016-07 00:00: 00 No 1mg Remeron 15 mg tablet 2016-07 00:00: 00 No 1mg Remeron 15 mg tablet 2016-07 00:00: 00 No 1mg Remeron 15 mg tablet 2016-07 00:00: 00 No 1mg amlodipine 5 mg tablet 2016-07 00:00: 00 Yes 1mg oTpher Brown amlodipine 5 mg tablet 2016-07 00:00: 00 No 1mg amlodipine 5 mg tablet 2016-07 00:00: 00 No 1mg amlodipine 5 mg tablet 2016-07 00:00: 00 No 1mg amlodipine 5 mg tablet 2016-07 00:00: 00 No 1mg amlodipine 5 mg tablet 2016-07 00:00: 00 No 1mg amlodipine 5 mg tablet 2016-07 00:00: 00 No 1mg meloxicam 7.5 mg tablet 03-29 00:00: 00 Yes 1mg Topher Brown meloxicam 7.5 mg tablet 03-29 00:00: 00 No 1mg meloxicam 7.5 mg tablet 03-29 00:00: 00 No 1mg meloxicam 7.5 mg tablet 03-29 00:00: 00 No 1mg meloxicam 7.5 mg tablet 03-29 00:00: 00 No 1mg meloxicam 7.5 mg tablet 03-29 00:00: 00 No 1mg meloxicam 7.5 mg tablet 03-29 00:00: 00 No 1mg meloxicam 7.5 mg tablet 03-22 00:00: 00 Yes 1mg Topher Brown meloxicam 7.5 mg tablet 03-22 00:00: 00 No 1mg meloxicam 7.5 mg tablet 03-22 00:00: 00 No 1mg meloxicam 7.5 mg tablet 03-22 00:00: 00 No 1mg meloxicam 7.5 mg tablet 03-22 00:00: 00 No 1mg meloxicam 7.5 mg tablet 03-22 00:00: 00 No 1mg meloxicam 7.5 mg tablet 03-22 00:00: 00 No 1mg Remeron 15 mg tablet 03-20 00:00: 00 Yes 1mg Topher Brown Remeron 15 mg tablet 03-20 00:00: 00 No 1mg Remeron 15 mg tablet 03-20 00:00: 00 No 1mg Remeron 15 mg tablet 03-20 00:00: 00 No 1mg Remeron 15 mg tablet 03-20 00:00: 00 No 1mg Remeron 15 mg tablet 03-20 00:00: 00 No 1mg Remeron 15 mg tablet 03-20 00:00: 00 No 1mg Remeron 15 mg tablet 02-16 00:00: 00 Yes 1mg Topher Brown Remeron 15 mg tablet 02-16 00:00: 00 No 1mg Remeron 15 mg tablet 02-16 00:00: 00 No 1mg Remeron 15 mg tablet 02-16 00:00: 00 No 1mg Remeron 15 mg tablet 02-16 00:00: 00 No 1mg Remeron 15 mg tablet 02-16 00:00: 00 No 1mg Remeron 15 mg tablet 02-16 00:00: 00 No 1mg Norvasc 5 mg tablet 02-15 00:00: 00 Yes 1mg Topher Brown Norvasc 5 mg tablet 02-15 00:00: 00 No 1mg Norvasc 5 mg tablet 02-15 00:00: 00 No 1mg Norvasc 5 mg tablet 02-15 00:00: 00 No 1mg Norvasc 5 mg tablet 02-15 00:00: 00 No 1mg Norvasc 5 mg tablet 02-15 00:00: 00 No 1mg Norvasc 5 mg tablet 02-15 00:00: 00 No 1mg meloxicam 7.5 mg tablet 01-31 00:00: 00 Yes 1mg Topher Brown meloxicam 7.5 mg tablet 01-31 00:00: 00 No 1mg meloxicam 7.5 mg tablet 01-31 00:00: 00 No 1mg meloxicam 7.5 mg tablet 01-31 00:00: 00 No 1mg meloxicam 7.5 mg tablet 01-31 00:00: 00 No 1mg meloxicam 7.5 mg tablet 01-31 00:00: 00 No 1mg meloxicam 7.5 mg tablet 01-31 00:00: 00 No 1mg Remeron 15 mg tablet 01-19 00:00: 00 Yes 1mg Topher Brown Remeron 15 mg tablet 01-19 00:00: 00 No 1mg Remeron 15 mg tablet 01-19 00:00: 00 No 1mg Remeron 15 mg tablet 01-19 00:00: 00 No 1mg Remeron 15 mg tablet 01-19 00:00: 00 No 1mg Remeron 15 mg tablet 01-19 00:00: 00 No 1mg Remeron 15 mg tablet 01-19 00:00: 00 No 1mg Remeron 15 mg tablet 12-22 00:00: 00 Yes 1mg Topher Brown Remeron 15 mg tablet 12-22 00:00: 00 No 1mg Remeron 15 mg tablet 12-22 00:00: 00 No 1mg Remeron 15 mg tablet 12-22 00:00: 00 No 1mg Remeron 15 mg tablet 12-22 00:00: 00 No 1mg Remeron 15 mg tablet 12-22 00:00: 00 No 1mg Remeron 15 mg tablet 12-22 00:00: 00 No 1mg Remeron 15 mg tablet 11-01 00:00: 00 Yes 1mg Topher Brown Remeron 15 mg tablet 11-01 00:00: 00 No 1mg Remeron 15 mg tablet 11-01 00:00: 00 No 1mg Remeron 15 mg tablet 11-01 00:00: 00 No 1mg Remeron 15 mg tablet 11-01 00:00: 00 No 1mg Remeron 15 mg tablet 11-01 00:00: 00 No 1mg Remeron 15 mg tablet 11-01 00:00: 00 No 1mg Norvasc 5 mg tablet 09-29 00:00: 00 Yes 1mg Topher Brown loratadine 10 mg tablet 09-29 00:00: 00 Yes 1mg Topher Brown cyclobenzap rine 10 mg tablet 09-29 00:00: 00 Yes 1mg Topher Brown gabapentin 300 mg capsule 09-29 00:00: 00 Yes 1mg Topher Brown Norvasc 5 mg tablet 09-29 00:00: 00 No 1mg loratadine 10 mg tablet 09-29 00:00: 00 No 1mg cyclobenzap rine 10 mg tablet 09-29 00:00: 00 No 1mg gabapentin 300 mg capsule 09-29 00:00: 00 No 1mg Norvasc 5 mg tablet 09-29 00:00: 00 No 1mg loratadine 10 mg tablet 09-29 00:00: 00 No 1mg cyclobenzap rine 10 mg tablet 09-29 00:00: 00 No 1mg gabapentin 300 mg capsule 09-29 00:00: 00 No 1mg Norvasc 5 mg tablet 09-29 00:00: 00 No 1mg loratadine 10 mg tablet 09-29 00:00: 00 No 1mg cyclobenzap rine 10 mg tablet 09-29 00:00: 00 No 1mg gabapentin 300 mg capsule 09-29 00:00: 00 No 1mg Norvasc 5 mg tablet 09-29 00:00: 00 No 1mg loratadine 10 mg tablet 09-29 00:00: 00 No 1mg cyclobenzap rine 10 mg tablet 09-29 00:00: 00 No 1mg gabapentin 300 mg capsule 09-29 00:00: 00 No 1mg Norvasc 5 mg tablet 09-29 00:00: 00 No 1mg loratadine 10 mg tablet 09-29 00:00: 00 No 1mg cyclobenzap rine 10 mg tablet 09-29 00:00: 00 No 1mg gabapentin 300 mg capsule 09-29 00:00: 00 No 1mg Norvasc 5 mg tablet 09-29 00:00: 00 No 1mg loratadine 10 mg tablet 09-29 00:00: 00 No 1mg cyclobenzap rine 10 mg tablet 09-29 00:00: 00 No 1mg gabapentin 300 mg capsule 09-29 00:00: 00 No 1mg Remeron 15 mg tablet 09-22 00:00: 00 Yes 1mg Topher Brown Remeron 15 mg tablet 09-22 00:00: 00 No 1mg Remeron 15 mg tablet 09-22 00:00: 00 No 1mg Remeron 15 mg tablet 09-22 00:00: 00 No 1mg Remeron 15 mg tablet 09-22 00:00: 00 No 1mg Remeron 15 mg tablet 09-22 00:00: 00 No 1mg Remeron 15 mg tablet 09-22 00:00: 00 No 1mg Norvasc 5 mg tablet 08-23 00:00: 00 Yes 1mg Topher Brown cyclobenzap rine 10 mg tablet 08-23 00:00: 00 Yes 1mg Topher Brown gabapentin 100 mg capsule 08-23 00:00: 00 Yes 1mg Topher Brown Norvasc 5 mg tablet 08-23 00:00: 00 No 1mg cyclobenzap rine 10 mg tablet 08-23 00:00: 00 No 1mg gabapentin 100 mg capsule 08-23 00:00: 00 No 1mg Norvasc 5 mg tablet 08-23 00:00: 00 No 1mg cyclobenzap rine 10 mg tablet 08-23 00:00: 00 No 1mg gabapentin 100 mg capsule 08-23 00:00: 00 No 1mg Norvasc 5 mg tablet 08-23 00:00: 00 No 1mg cyclobenzap rine 10 mg tablet 08-23 00:00: 00 No 1mg gabapentin 100 mg capsule 08-23 00:00: 00 No 1mg Norvasc 5 mg tablet 08-23 00:00: 00 No 1mg cyclobenzap rine 10 mg tablet 08-23 00:00: 00 No 1mg gabapentin 100 mg capsule 08-23 00:00: 00 No 1mg Norvasc 5 mg tablet 08-23 00:00: 00 No 1mg cyclobenzap rine 10 mg tablet 08-23 00:00: 00 No 1mg gabapentin 100 mg capsule 08-23 00:00: 00 No 1mg Norvasc 5 mg tablet 08-23 00:00: 00 No 1mg cyclobenzap rine 10 mg tablet 08-23 00:00: 00 No 1mg gabapentin 100 mg capsule 08-23 00:00: 00 No 1mg Norvasc 5 mg tablet 08-23 00:00: 00 No 1mg cyclobenzap rine 10 mg tablet 08-23 00:00: 00 No 1mg Norvasc 5 mg tablet 2015-07 00:00: 00 Yes 1mg Topher Brown loratadine 10 mg tablet 2015-07 00:00: 00 Yes 1mg Topher Brown cyclobenzap rine 10 mg tablet 2015-07 00:00: 00 Yes 1mg Topher Brown ibuprofen 800 mg tablet 2015-07 00:00: 00 Yes 1mg Topher Brown Norvasc 5 mg tablet 2015-07 00:00: 00 No 1mg loratadine 10 mg tablet 2015-07 00:00: 00 No 1mg cyclobenzap rine 10 mg tablet 2015-07 00:00: 00 No 1mg ibuprofen 800 mg tablet 2015-07 00:00: 00 No 1mg Norvasc 5 mg tablet 2015-07 00:00: 00 No 1mg loratadine 10 mg tablet 2015-07 00:00: 00 No 1mg cyclobenzap rine 10 mg tablet 2015-07 00:00: 00 No 1mg ibuprofen 800 mg tablet 2015-07 00:00: 00 No 1mg Norvasc 5 mg tablet 2015-07 00:00: 00 No 1mg loratadine 10 mg tablet 2015-07 00:00: 00 No 1mg cyclobenzap rine 10 mg tablet 2015-07 00:00: 00 No 1mg ibuprofen 800 mg tablet 2015-07 00:00: 00 No 1mg Norvasc 5 mg tablet 2015-07 00:00: 00 No 1mg loratadine 10 mg tablet 2015-07 00:00: 00 No 1mg cyclobenzap rine 10 mg tablet 2015-07 00:00: 00 No 1mg ibuprofen 800 mg tablet 2015-07 00:00: 00 No 1mg Norvasc 5 mg tablet 2015-07 00:00: 00 No 1mg loratadine 10 mg tablet 2015-07 00:00: 00 No 1mg cyclobenzap rine 10 mg tablet 2015-07 00:00: 00 No 1mg ibuprofen 800 mg tablet 2015-07 00:00: 00 No 1mg Norvasc 5 mg tablet 2015-07 00:00: 00 No 1mg loratadine 10 mg tablet 2015-07 00:00: 00 No 1mg cyclobenzap rine 10 mg tablet 2015-07 00:00: 00 No 1mg ibuprofen 800 mg tablet 2015-07 00:00: 00 No 1mg Norvasc 5 mg tablet 2015-07 00:00: 00 No 1mg loratadine 10 mg tablet 2015-07 00:00: 00 No 1mg cyclobenzap rine 10 mg tablet 2015-07 00:00: 00 No 1mg ibuprofen 800 mg tablet 2015-07 00:00: 00 No 1mg Remeron 15 mg tablet 2015-07 00:00: 00 Yes 1mg Topher Brown fluoxetine 40 mg capsule 2015-07 00:00: 00 Yes 1mg Topher Brown hydroxyzine pamoate 25 mg capsule 2015-07 00:00: 00 Yes 1mg Topher Brown Remeron 15 mg tablet 2015-07 00:00: 00 No 1mg fluoxetine 40 mg capsule 2015-07 00:00: 00 No 1mg hydroxyzine pamoate 25 mg capsule 2015-07 00:00: 00 No 1mg Remeron 15 mg tablet 2015-07 00:00: 00 No 1mg fluoxetine 40 mg capsule 2015-07 00:00: 00 No 1mg hydroxyzine pamoate 25 mg capsule 2015-07 00:00: 00 No 1mg Remeron 15 mg tablet 2015-07 00:00: 00 No 1mg fluoxetine 40 mg capsule 2015-07 00:00: 00 No 1mg hydroxyzine pamoate 25 mg capsule 2015-07 00:00: 00 No 1mg Remeron 15 mg tablet 2015-07 00:00: 00 No 1mg fluoxetine 40 mg capsule 2015-07 00:00: 00 No 1mg hydroxyzine pamoate 25 mg capsule 2015-07 00:00: 00 No 1mg Remeron 15 mg tablet 2015-07 00:00: 00 No 1mg fluoxetine 40 mg capsule 2015-07 00:00: 00 No 1mg hydroxyzine pamoate 25 mg capsule 2015-07 00:00: 00 No 1mg Remeron 15 mg tablet 2015-07 00:00: 00 No 1mg fluoxetine 40 mg capsule 2015-07 00:00: 00 No 1mg hydroxyzine pamoate 25 mg capsule 2015-07 00:00: 00 No 1mg Remeron 15 mg tablet 2015-07 00:00: 00 No 1mg fluoxetine 40 mg capsule 2015-07 00:00: 00 No 1mg hydroxyzine pamoate 25 mg capsule 2015-07 00:00: 00 No 1mg Remeron 15 mg tablet 2015-07 00:00: 00 Yes 1mg Topher Brown fluoxetine 40 mg capsule 2015-07 00:00: 00 Yes 1mg Topher Brown hydroxyzine pamoate 25 mg capsule 2015-07 00:00: 00 Yes 1mg Topher Brown Remeron 15 mg tablet 2015-07 00:00: 00 No 1mg fluoxetine 40 mg capsule 2015-07 00:00: 00 No 1mg hydroxyzine pamoate 25 mg capsule 2015-07 00:00: 00 No 1mg Remeron 15 mg tablet 2015-07 00:00: 00 No 1mg fluoxetine 40 mg capsule 2015-07 00:00: 00 No 1mg hydroxyzine pamoate 25 mg capsule 2015-07 00:00: 00 No 1mg Remeron 15 mg tablet 2015-07 00:00: 00 No 1mg fluoxetine 40 mg capsule 2015-07 00:00: 00 No 1mg hydroxyzine pamoate 25 mg capsule 2015-07 00:00: 00 No 1mg Remeron 15 mg tablet 2015-07 00:00: 00 No 1mg fluoxetine 40 mg capsule 2015-07 00:00: 00 No 1mg hydroxyzine pamoate 25 mg capsule 2015-07 00:00: 00 No 1mg Remeron 15 mg tablet 2015-07 00:00: 00 No 1mg Remeron 15 mg tablet 2015-07 00:00: 00 No 1mg fluoxetine 40 mg capsule 2015-07 00:00: 00 No 1mg hydroxyzine pamoate 25 mg capsule 2015-07 00:00: 00 No 1mg fluoxetine 40 mg capsule 2015-07 00:00: 00 No 1mg hydroxyzine pamoate 25 mg capsule 2015-07 00:00: 00 No 1mg Remeron 15 mg tablet 2015-07 00:00: 00 No 1mg fluoxetine 40 mg capsule 2015-07 00:00: 00 No 1mg hydroxyzine pamoate 25 mg capsule 2015-07 00:00: 00 No 1mg Remeron 15 mg tablet 01-20 00:00: 00 Yes 1mg Topher Brown fluoxetine 40 mg capsule 01-20 00:00: 00 Yes 1mg Topher Brown hydroxyzine pamoate 25 mg capsule 01-20 00:00: 00 Yes 1mg Topher Brown Remeron 15 mg tablet 01-20 00:00: 00 No 1mg fluoxetine 40 mg capsule 01-20 00:00: 00 No 1mg hydroxyzine pamoate 25 mg capsule 01-20 00:00: 00 No 1mg Remeron 15 mg tablet 01-20 00:00: 00 No 1mg fluoxetine 40 mg capsule 01-20 00:00: 00 No 1mg hydroxyzine pamoate 25 mg capsule 01-20 00:00: 00 No 1mg Remeron 15 mg tablet 01-20 00:00: 00 No 1mg fluoxetine 40 mg capsule 01-20 00:00: 00 No 1mg hydroxyzine pamoate 25 mg capsule 01-20 00:00: 00 No 1mg Remeron 15 mg tablet 01-20 00:00: 00 No 1mg fluoxetine 40 mg capsule 01-20 00:00: 00 No 1mg hydroxyzine pamoate 25 mg capsule 01-20 00:00: 00 No 1mg Remeron 15 mg tablet 01-20 00:00: 00 No 1mg fluoxetine 40 mg capsule 01-20 00:00: 00 No 1mg hydroxyzine pamoate 25 mg capsule 01-20 00:00: 00 No 1mg Remeron 15 mg tablet 01-20 00:00: 00 No 1mg fluoxetine 40 mg capsule 01-20 00:00: 00 No 1mg hydroxyzine pamoate 25 mg capsule 01-20 00:00: 00 No 1mg Remeron 15 mg tablet 01-20 00:00: 00 No 1mg fluoxetine 40 mg capsule 01-20 00:00: 00 No 1mg hydroxyzine pamoate 25 mg capsule 01-20 00:00: 00 No 1mg naproxen 500 mg tablet 12-23 00:00: 00 Yes 1mg Topher Brown Remeron 15 mg tablet 12-23 00:00: 00 Yes 1mg Topher Brown fluoxetine 40 mg capsule 12-23 00:00: 00 Yes 1mg Topher Brown hydroxyzine pamoate 25 mg capsule 12-23 00:00: 00 Yes 1mg Topher Brown naproxen 500 mg tablet 12-23 00:00: 00 No 1mg Remeron 15 mg tablet 12-23 00:00: 00 No 1mg fluoxetine 40 mg capsule 12-23 00:00: 00 No 1mg hydroxyzine pamoate 25 mg capsule 12-23 00:00: 00 No 1mg naproxen 500 mg tablet 12-23 00:00: 00 No 1mg Remeron 15 mg tablet 12-23 00:00: 00 No 1mg fluoxetine 40 mg capsule 12-23 00:00: 00 No 1mg hydroxyzine pamoate 25 mg capsule 12-23 00:00: 00 No 1mg naproxen 500 mg tablet 12-23 00:00: 00 No 1mg Remeron 15 mg tablet 12-23 00:00: 00 No 1mg fluoxetine 40 mg capsule 12-23 00:00: 00 No 1mg hydroxyzine pamoate 25 mg capsule 12-23 00:00: 00 No 1mg naproxen 500 mg tablet 12-23 00:00: 00 No 1mg Remeron 15 mg tablet 12-23 00:00: 00 No 1mg fluoxetine 40 mg capsule 12-23 00:00: 00 No 1mg hydroxyzine pamoate 25 mg capsule 12-23 00:00: 00 No 1mg naproxen 500 mg tablet 12-23 00:00: 00 No 1mg Remeron 15 mg tablet 12-23 00:00: 00 No 1mg fluoxetine 40 mg capsule 12-23 00:00: 00 No 1mg hydroxyzine pamoate 25 mg capsule 12-23 00:00: 00 No 1mg naproxen 500 mg tablet 12-23 00:00: 00 No 1mg Remeron 15 mg tablet 12-23 00:00: 00 No 1mg fluoxetine 40 mg capsule 12-23 00:00: 00 No 1mg hydroxyzine pamoate 25 mg capsule 12-23 00:00: 00 No 1mg naproxen 500 mg tablet 12-23 00:00: 00 No 1mg Remeron 15 mg tablet 12-23 00:00: 00 No 1mg fluoxetine 40 mg capsule 12-23 00:00: 00 No 1mg hydroxyzine pamoate 25 mg capsule 12-23 00:00: 00 No 1mg Benadryl Allergy 25 mg tablet 12-13 00:00: 00 Yes 1mg Topher Brown Medrol 4 mg tablet 12-13 00:00: 00 Yes mg Topher Brown Benadryl Allergy 25 mg tablet 12-13 00:00: 00 No 1mg Medrol 4 mg tablet 12-13 00:00: 00 No mg Benadryl Allergy 25 mg tablet 12-13 00:00: 00 No 1mg Medrol 4 mg tablet 12-13 00:00: 00 No mg Benadryl Allergy 25 mg tablet 12-13 00:00: 00 No 1mg Medrol 4 mg tablet 12-13 00:00: 00 No mg Benadryl Allergy 25 mg tablet 12-13 00:00: 00 No 1mg Medrol 4 mg tablet 12-13 00:00: 00 No mg Benadryl Allergy 25 mg tablet 12-13 00:00: 00 No 1mg Medrol 4 mg tablet 12-13 00:00: 00 No mg Benadryl Allergy 25 mg tablet 12-13 00:00: 00 No 1mg Medrol 4 mg tablet 12-13 00:00: 00 No mg Benadryl Allergy 25 mg tablet 12-13 00:00: 00 No 1mg Medrol 4 mg tablet 12-13 00:00: 00 No mg triamcinolo ne acetonide 0.1 % topical cream 12-01 00:00: 00 Yes 1% Topher Brown triamcinolo ne acetonide 0.1 % topical cream 12-01 00:00: 00 No 1% triamcinolo ne acetonide 0.1 % topical cream 12-01 00:00: 00 No 1% triamcinolo ne acetonide 0.1 % topical cream 12-01 00:00: 00 No 1% triamcinolo ne acetonide 0.1 % topical cream 12-01 00:00: 00 No 1% triamcinolo ne acetonide 0.1 % topical cream 12-01 00:00: 00 No 1% triamcinolo ne acetonide 0.1 % topical cream 12-01 00:00: 00 No 1% triamcinolo ne acetonide 0.1 % topical cream 12-01 00:00: 00 No 1% cyclobenzap rine 10 mg tablet 11-30 00:00: 00 Yes 1mg Topher Brown lisinopril 10 mg tablet 11-30 00:00: 00 Yes 1mg Topher Brown naproxen 500 mg tablet 11-30 00:00: 00 Yes 1mg Topher Brown cyclobenzap rine 10 mg tablet 11-30 00:00: 00 No 1mg lisinopril 10 mg tablet 11-30 00:00: 00 No 1mg naproxen 500 mg tablet 11-30 00:00: 00 No 1mg cyclobenzap rine 10 mg tablet 11-30 00:00: 00 No 1mg lisinopril 10 mg tablet 11-30 00:00: 00 No 1mg naproxen 500 mg tablet 11-30 00:00: 00 No 1mg cyclobenzap rine 10 mg tablet 11-30 00:00: 00 No 1mg lisinopril 10 mg tablet 11-30 00:00: 00 No 1mg naproxen 500 mg tablet 11-30 00:00: 00 No 1mg cyclobenzap rine 10 mg tablet 11-30 00:00: 00 No 1mg lisinopril 10 mg tablet 11-30 00:00: 00 No 1mg cyclobenzap rine 10 mg tablet 11-30 00:00: 00 No 1mg lisinopril 10 mg tablet 11-30 00:00: 00 No 1mg naproxen 500 mg tablet 11-30 00:00: 00 No 1mg naproxen 500 mg tablet 11-30 00:00: 00 No 1mg cyclobenzap rine 10 mg tablet 11-30 00:00: 00 No 1mg lisinopril 10 mg tablet 11-30 00:00: 00 No 1mg naproxen 500 mg tablet 11-30 00:00: 00 No 1mg cyclobenzap rine 10 mg tablet 11-30 00:00: 00 No 1mg lisinopril 10 mg tablet 11-30 00:00: 00 No 1mg naproxen 500 mg tablet 11-30 00:00: 00 No 1mg Remeron 15 mg tablet 07-30 00:00: 00 Yes 1mg Topher Brown fluoxetine 40 mg capsule 07-30 00:00: 00 Yes 1mg Topher Brown Vistaril 25 mg capsule 07-30 00:00: 00 Yes 1mg Topher Brown Neurontin 100 mg capsule 07-30 00:00: 00 Yes 1mg Topher Brown hydroxyzine pamoate 25 mg capsule 07-30 00:00: 00 Yes 1mg Topher Brown Remeron 15 mg tablet 07-30 00:00: 00 No 1mg fluoxetine 40 mg capsule 07-30 00:00: 00 No 1mg Vistaril 25 mg capsule 07-30 00:00: 00 No 1mg Neurontin 100 mg capsule 07-30 00:00: 00 No 1mg hydroxyzine pamoate 25 mg capsule 07-30 00:00: 00 No 1mg Remeron 15 mg tablet 07-30 00:00: 00 No 1mg fluoxetine 40 mg capsule 07-30 00:00: 00 No 1mg Vistaril 25 mg capsule 07-30 00:00: 00 No 1mg Neurontin 100 mg capsule 07-30 00:00: 00 No 1mg hydroxyzine pamoate 25 mg capsule 07-30 00:00: 00 No 1mg Remeron 15 mg tablet 07-30 00:00: 00 No 1mg Remeron 15 mg tablet 07-30 00:00: 00 No 1mg fluoxetine 40 mg capsule 07-30 00:00: 00 No 1mg Vistaril 25 mg capsule 07-30 00:00: 00 No 1mg Neurontin 100 mg capsule 07-30 00:00: 00 No 1mg hydroxyzine pamoate 25 mg capsule 07-30 00:00: 00 No 1mg fluoxetine 40 mg capsule 07-30 00:00: 00 No 1mg Vistaril 25 mg capsule 07-30 00:00: 00 No 1mg Neurontin 100 mg capsule 07-30 00:00: 00 No 1mg hydroxyzine pamoate 25 mg capsule 07-30 00:00: 00 No 1mg Remeron 15 mg tablet 07-30 00:00: 00 No 1mg fluoxetine 40 mg capsule 07-30 00:00: 00 No 1mg Vistaril 25 mg capsule 07-30 00:00: 00 No 1mg Neurontin 100 mg capsule 07-30 00:00: 00 No 1mg hydroxyzine pamoate 25 mg capsule 07-30 00:00: 00 No 1mg Remeron 15 mg tablet 07-30 00:00: 00 No 1mg fluoxetine 40 mg capsule 07-30 00:00: 00 No 1mg Vistaril 25 mg capsule 07-30 00:00: 00 No 1mg Neurontin 100 mg capsule 07-30 00:00: 00 No 1mg hydroxyzine pamoate 25 mg capsule 07-30 00:00: 00 No 1mg Remeron 15 mg tablet 07-30 00:00: 00 No 1mg fluoxetine 40 mg capsule 07-30 00:00: 00 No 1mg Vistaril 25 mg capsule 07-30 00:00: 00 No 1mg Neurontin 100 mg capsule 07-30 00:00: 00 No 1mg hydroxyzine pamoate 25 mg capsule 07-30 00:00: 00 No 1mg mirtazapine 15 mg tablet 2014-07 00:00: 00 Yes 1mg Topher Brown fluoxetine 40 mg capsule 2014-07 00:00: 00 Yes 1mg Topher Brown mirtazapine 15 mg tablet 2014-07 00:00: 00 No 1mg fluoxetine 40 mg capsule 2014-07 00:00: 00 No 1mg mirtazapine 15 mg tablet 2014-07 00:00: 00 No 1mg fluoxetine 40 mg capsule 2014-07 00:00: 00 No 1mg mirtazapine 15 mg tablet 2014-07 00:00: 00 No 1mg fluoxetine 40 mg capsule 2014-07 00:00: 00 No 1mg mirtazapine 15 mg tablet 2014-07 00:00: 00 No 1mg fluoxetine 40 mg capsule 2014-07 00:00: 00 No 1mg mirtazapine 15 mg tablet 2014-07 00:00: 00 No 1mg fluoxetine 40 mg capsule 2014-07 00:00: 00 No 1mg mirtazapine 15 mg tablet 2014-07 00:00: 00 No 1mg fluoxetine 40 mg capsule 2014-07 00:00: 00 No 1mg mirtazapine 15 mg tablet 2014-07 00:00: 00 No 1mg fluoxetine 40 mg capsule 2014-07 00:00: 00 No 1mg Remeron 15 mg tablet 03-05 00:00: 00 Yes 1mg Topher Brown fluoxetine 40 mg capsule 03-05 00:00: 00 Yes 1mg Topher Brown Neurontin 100 mg capsule 03-05 00:00: 00 Yes 1mg Topher Brown Remeron 15 mg tablet 03-05 00:00: 00 No 1mg fluoxetine 40 mg capsule 03-05 00:00: 00 No 1mg Neurontin 100 mg capsule 03-05 00:00: 00 No 1mg Remeron 15 mg tablet 03-05 00:00: 00 No 1mg fluoxetine 40 mg capsule 03-05 00:00: 00 No 1mg Neurontin 100 mg capsule 03-05 00:00: 00 No 1mg Remeron 15 mg tablet 03-05 00:00: 00 No 1mg fluoxetine 40 mg capsule 03-05 00:00: 00 No 1mg Neurontin 100 mg capsule 03-05 00:00: 00 No 1mg Remeron 15 mg tablet 03-05 00:00: 00 No 1mg fluoxetine 40 mg capsule 03-05 00:00: 00 No 1mg Neurontin 100 mg capsule 03-05 00:00: 00 No 1mg Remeron 15 mg tablet 03-05 00:00: 00 No 1mg fluoxetine 40 mg capsule 03-05 00:00: 00 No 1mg Neurontin 100 mg capsule 03-05 00:00: 00 No 1mg Remeron 15 mg tablet 03-05 00:00: 00 No 1mg fluoxetine 40 mg capsule 03-05 00:00: 00 No 1mg Neurontin 100 mg capsule 03-05 00:00: 00 No 1mg Remeron 15 mg tablet 03-05 00:00: 00 No 1mg fluoxetine 40 mg capsule 03-05 00:00: 00 No 1mg Neurontin 100 mg capsule 03-05 00:00: 00 No 1mg Remeron 15 mg tablet 02-05 00:00: 00 Yes 1mg Topher Brown fluoxetine 40 mg capsule 02-05 00:00: 00 Yes 1mg Topher Brown Neurontin 100 mg capsule 02-05 00:00: 00 Yes 1mg Topher Brown Remeron 15 mg tablet 02-05 00:00: 00 No 1mg fluoxetine 40 mg capsule 02-05 00:00: 00 No 1mg Neurontin 100 mg capsule 02-05 00:00: 00 No 1mg Remeron 15 mg tablet 02-05 00:00: 00 No 1mg fluoxetine 40 mg capsule 02-05 00:00: 00 No 1mg Neurontin 100 mg capsule 02-05 00:00: 00 No 1mg Remeron 15 mg tablet 02-05 00:00: 00 No 1mg fluoxetine 40 mg capsule 02-05 00:00: 00 No 1mg Neurontin 100 mg capsule 02-05 00:00: 00 No 1mg Remeron 15 mg tablet 02-05 00:00: 00 No 1mg fluoxetine 40 mg capsule 02-05 00:00: 00 No 1mg Neurontin 100 mg capsule 02-05 00:00: 00 No 1mg Remeron 15 mg tablet 02-05 00:00: 00 No 1mg fluoxetine 40 mg capsule 02-05 00:00: 00 No 1mg Neurontin 100 mg capsule 02-05 00:00: 00 No 1mg Remeron 15 mg tablet 02-05 00:00: 00 No 1mg fluoxetine 40 mg capsule 02-05 00:00: 00 No 1mg Neurontin 100 mg capsule 02-05 00:00: 00 No 1mg Remeron 15 mg tablet 02-05 00:00: 00 No 1mg fluoxetine 40 mg capsule 02-05 00:00: 00 No 1mg Neurontin 100 mg capsule 02-05 00:00: 00 No 1mg trazodone 50 mg tablet 01-08 00:00: 00 Yes 12mg Topher Brown fluoxetine 40 mg capsule 01-08 00:00: 00 Yes 1mg Topher Brown Neurontin 100 mg capsule 01-08 00:00: 00 Yes 1mg Topher Brown trazodone 50 mg tablet 01-08 00:00: 00 No 12mg fluoxetine 40 mg capsule 01-08 00:00: 00 No 1mg Neurontin 100 mg capsule 01-08 00:00: 00 No 1mg trazodone 50 mg tablet 01-08 00:00: 00 No 12mg fluoxetine 40 mg capsule 01-08 00:00: 00 No 1mg Neurontin 100 mg capsule 01-08 00:00: 00 No 1mg trazodone 50 mg tablet 01-08 00:00: 00 No 12mg fluoxetine 40 mg capsule 01-08 00:00: 00 No 1mg Neurontin 100 mg capsule 01-08 00:00: 00 No 1mg trazodone 50 mg tablet 01-08 00:00: 00 No 12mg fluoxetine 40 mg capsule 01-08 00:00: 00 No 1mg Neurontin 100 mg capsule 01-08 00:00: 00 No 1mg trazodone 50 mg tablet 01-08 00:00: 00 No 12mg fluoxetine 40 mg capsule 01-08 00:00: 00 No 1mg Neurontin 100 mg capsule 01-08 00:00: 00 No 1mg trazodone 50 mg tablet 01-08 00:00: 00 No 12mg fluoxetine 40 mg capsule 01-08 00:00: 00 No 1mg Neurontin 100 mg capsule 01-08 00:00: 00 No 1mg trazodone 50 mg tablet 01-08 00:00: 00 No 12mg fluoxetine 40 mg capsule 01-08 00:00: 00 No 1mg Neurontin 100 mg capsule 01-08 00:00: 00 No 1mg naproxen 500 mg tablet 10-31 00:00: 00 Yes 1mg Topher Brown naproxen 500 mg tablet 10-31 00:00: 00 No 1mg naproxen 500 mg tablet 10-31 00:00: 00 No 1mg naproxen 500 mg tablet 10-31 00:00: 00 No 1mg naproxen 500 mg tablet 10-31 00:00: 00 No 1mg naproxen 500 mg tablet 10-31 00:00: 00 No 1mg naproxen 500 mg tablet 10-31 00:00: 00 No 1mg naproxen 500 mg tablet 10-31 00:00: 00 No 1mg trazodone 50 mg tablet 10-30 00:00: 00 Yes 12mg Topher Brown fluoxetine 40 mg capsule 10-30 00:00: 00 Yes 1mg Topher Brown trazodone 50 mg tablet 10-30 00:00: 00 No 12mg fluoxetine 40 mg capsule 10-30 00:00: 00 No 1mg trazodone 50 mg tablet 10-30 00:00: 00 No 12mg fluoxetine 40 mg capsule 10-30 00:00: 00 No 1mg trazodone 50 mg tablet 10-30 00:00: 00 No 12mg fluoxetine 40 mg capsule 10-30 00:00: 00 No 1mg trazodone 50 mg tablet 10-30 00:00: 00 No 12mg fluoxetine 40 mg capsule 10-30 00:00: 00 No 1mg trazodone 50 mg tablet 10-30 00:00: 00 No 12mg fluoxetine 40 mg capsule 10-30 00:00: 00 No 1mg trazodone 50 mg tablet 10-30 00:00: 00 No 12mg fluoxetine 40 mg capsule 10-30 00:00: 00 No 1mg trazodone 50 mg tablet 10-30 00:00: 00 No 12mg fluoxetine 40 mg capsule 10-30 00:00: 00 No 1mg naproxen 500 mg tablet 10-21 00:00: 00 Yes 1mg Topher Brown naproxen 500 mg tablet 10-21 00:00: 00 No 1mg naproxen 500 mg tablet 10-21 00:00: 00 No 1mg naproxen 500 mg tablet 10-21 00:00: 00 No 1mg naproxen 500 mg tablet 10-21 00:00: 00 No 1mg naproxen 500 mg tablet 10-21 00:00: 00 No 1mg naproxen 500 mg tablet 10-21 00:00: 00 No 1mg naproxen 500 mg tablet 10-21 00:00: 00 No 1mg fluoxetine 20 mg capsule 10-08 00:00: 00 Yes 1mg Topher Brown fluoxetine 20 mg capsule 10-08 00:00: 00 No 1mg fluoxetine 20 mg capsule 10-08 00:00: 00 No 1mg fluoxetine 20 mg capsule 10-08 00:00: 00 No 1mg fluoxetine 20 mg capsule 10-08 00:00: 00 No 1mg fluoxetine 20 mg capsule 10-08 00:00: 00 No 1mg fluoxetine 20 mg capsule 10-08 00:00: 00 No 1mg fluoxetine 20 mg capsule 10-08 00:00: 00 No 1mg Gabapentin TABS Gabapentin TABS Yes [facility] Immunizations Ordered Immunization Name Filled Immunization Name Date Status Comments Source Tdap Tdap 2023-04-20 00:00:00 Completed Topher Brown Tdap Tdap 2023-04-20 00:00:00 Completed Topher Brown SHINGRIX VACCINE SHINGRIX VACCINE 2022-03-09 00:00:00 Hitesh Brown SHINGRIX VACCINE SHINGRIX VACCINE 2022-03-09 00:00:00 Completed Topher Brown SHINGRIX VACCINE 2022-03-09 00:00:00 Completed Moderna COVID-19 Vaccine Moderna COVID-19 Vaccine 2020-12-02 00:00:00 Hitesh Brown Moderna COVID-19 Vaccine Moderna COVID-19 Vaccine 2020-12-02 00:00:00 Completed Topher Tutu Brown Moderna COVID-19 Vaccine 2020-12-02 00:00:00 Completed Moderna COVID-19 Vaccine 2020-12-02 00:00:00 Completed Moderna COVID-19 Vaccine 2020-12-02 00:00:00 Completed Moderna COVID-19 Vaccine 2020-12-02 00:00:00 Completed Moderna COVID-19 Vaccine 2020-12-02 00:00:00 Completed Moderna COVID-19 Vaccine 2020-12-02 00:00:00 Completed Moderna COVID-19 Vaccine 2020-12-02 00:00:00 Completed Moderna COVID-19 Vaccine 2020-12-02 00:00:00 Completed Moderna COVID-19 Vaccine Moderna COVID-19 Vaccine 2020-10-15 00:00:00 Completed Topher Brown Moderna COVID-19 Vaccine Moderna COVID-19 Vaccine 2020-10-15 00:00:00 Completed Topher Brown SARS-COV-2 COVID-19 MODERNA VACCINE 2020-10-15 00:00:00 Completed [facility] SARS-COV-2 COVID-19 MODERNA VACCINE 2020-10-15 00:00:00 Completed [facility] SARS-COV-2 COVID-19 MODERNA VACCINE 2020-10-15 00:00:00 Completed [facility] SARS-COV-2 COVID-19 MODERNA 12+ YRS VACCINE 2020-10-15 00:00:00 Completed [facility] SARS-COV-2 COVID-19 MODERNA 12+ YRS VACCINE 2020-10-15 00:00:00 Completed [facility] SARS-COV-2 COVID-19 MODERNA 12+ YRS VACCINE 2020-10-15 00:00:00 Completed [facility] SARS-COV-2 COVID-19 MODERNA 12+ YRS VACCINE 2020-10-15 00:00:00 Completed [facility] SARS-COV-2 COVID-19 MODERNA 12+ YRS VACCINE 2020-10-15 00:00:00 Completed [facility] SARS-COV-2 COVID-19 MODERNA 12+ YRS VACCINE 2020-10-15 00:00:00 Completed [facility] Moderna COVID-19 Vaccine 2020-10-15 00:00:00 Completed Moderna COVID-19 Vaccine 2020-10-15 00:00:00 Completed Moderna COVID-19 Vaccine 2020-10-15 00:00:00 Completed Moderna COVID-19 Vaccine 2020-10-15 00:00:00 Completed Moderna COVID-19 Vaccine 2020-10-15 00:00:00 Completed Moderna COVID-19 Vaccine 2020-10-15 00:00:00 Completed Moderna COVID-19 Vaccine 2020-10-15 00:00:00 Completed Moderna COVID-19 Vaccine 2020-10-15 00:00:00 Completed Tdap Tdap 2018-01-04 00:00:00 Completed Topher Brown Tdap Tdap 2018-01-04 00:00:00 Completed Topher Brown TDAP 2018-01-04 00:00:00 Completed [facility] TDAP 2018-01-04 00:00:00 Completed [facility] TDAP 2018-01-04 00:00:00 Completed [facility] TDAP 2018-01-04 00:00:00 Completed [facility] TDAP 2018-01-04 00:00:00 Completed [facility] TDAP 2018-01-04 00:00:00 Completed [facility] TDAP 2018-01-04 00:00:00 Completed [facility] Tdap 2018-01-04 00:00:00 Completed Tdap 2018-01-04 00:00:00 Completed Tdap 2018-01-04 00:00:00 Completed Tdap 2018-01-04 00:00:00 Completed Tdap 2018-01-04 00:00:00 Completed Tdap 2018-01-04 00:00:00 Completed Tdap 2018-01-04 00:00:00 Completed Tdap 2018-01-04 00:00:00 Completed Td 2006-07-03 00:00:00 Completed [facility] Td 2006-07-03 00:00:00 Completed [facility] Td 2006-07-03 00:00:00 Completed [facility] TD, NOS 2006-07-03 00:00:00 Completed [facility] TD, NOS 2006-07-03 00:00:00 Completed [facility] TD, NOS 2006-07-03 00:00:00 Completed [facility] TD, NOS 2006-07-03 00:00:00 Completed [facility] TD, NOS 2006-07-03 00:00:00 Completed [facility] TD, NOS 2006-07-03 00:00:00 Completed [facility] Vital Signs Vital Name Observation Time Observation Value Comments S ource Systolic blood pressure 2022-12-29 14:11:00 111 mm[Hg] [facility] Diastolic blood pressure 2022-12-29 14:11:00 58 mm[Hg] [facility] Heart rate 2022-12-29 14:11:00 77 /min [facility] Body temperature 2022-12-29 14:11:00 36.17 Kend[facility] Respiratory rate 2022-12-29 14:11:00 17 /min [facility] Body height 2022-12-29 14:11:00 166.4 cm [facility] Body weight 2022-12-29 14:11:00 65.318 kg [facility] BMI 2022-12-29 14:11:00 23.60 kg/m2 [facility] Oxygen saturation in Arterial blood by Pulse oximetry 2022-12-29 14:11:00 97 /min [facility] Systolic blood pressure 2021-12-18 02:57:00 125 mm[Hg] [facility] Diastolic blood pressure 2021-12-18 02:57:00 73 mm[Hg] [facility] Heart rate 2021-12-18 02:57:00 66 /min [facility] Respiratory rate 2021-12-18 02:57:00 18 /min [facility] Oxygen saturation in Arterial blood by Pulse oximetry 2021-12-18 02:57:00 98 /min [facility] Body temperature 2021-12-18 01:08:00 36.17 Kendra [facility] Body height 2021-12-18 01:08:00 165.1 cm [facility] Body weight 2021-12-18 01:08:00 75.297 kg [facility] BMI 2021-12-18 01:08:00 27.62 kg/m2 [facility] Systolic blood pressure 2021-04-30 18:46:00 131 mm[Hg] [facility] Diastolic blood pressure 2021-04-30 18:46:00 72 mm[Hg] [facility] Heart rate 2021-04-30 18:46:00 90 /min [facility] Body temperature 2021-04-30 18:46:00 36.67 Kendra [facility] Respiratory rate 2021-04-30 18:46:00 18 /min [facility] Body height 2021-04-30 18:46:00 165.1 cm [facility] Body weight 2021-04-30 18:46:00 76.885 kg [facility] BMI 2021-04-30 18:46:00 28.21 kg/m2 [facility] BP Systolic 2024-08-22 13:32:00 130 mm[Hg] [facility] BP Diastolic 2024-08-22 13:32:00 70 mm[Hg] [facility] Weight Measured 2024-08-22 13:32:00 139.40 pounds [facility]her F [facility] Height Measured 2024-08-22 13:32:00 65.00 inches [facility] Body Temperature 2024-08-22 13:32:00 97.20 degrees Topher F Kevin Heart Rate 2024-08-22 13:32:00 93.00 /min [facility] Respiratory Rate 2024-08-22 13:32:00 18.00 /min Topher F Kevin BP Systolic 2024-08-09 11:02:00 105 mm[Hg] [facility] BP Diastolic 2024-08-09 11:02:00 64 mm[Hg] [facility] Weight Measured 2024-08-09 11:02:00 140.00 pounds Topher F Kevin Height Measured 2024-08-09 11:02:00 65.00 inches Topher F Kevin Body Temperature 2024-08-09 11:02:00 97.90 degrees Topher F Kevin Heart Rate 2024-08-09 11:02:00 67.00 /min [facility] Respiratory Rate 2024-08-09 11:02:00 16.00 /min Topher F Kevin BP Systolic 2024-06-10 14:25:00 145 mm[Hg] [facility] BP Diastolic 2024-06-10 14:25:00 79 mm[Hg] Aidan phen [facility] Weight Measured 2024-06-10 14:25:00 139.20 pounds Topher F Kevin Height Measured 2024-06-10 14:25:00 65.00 inches Topher F Kevin Body Temperature 2024-06-10 14:25:00 98.30 degrees Topher F Kevin Heart Rate 2024-06-10 14:25:00 98.30 /min [facility] Respiratory Rate 2024-06-10 14:25:00 Topher F Kevin BP Systolic 2024-06-03 09:08:00 132 mm[Hg] [facility] BP Diastolic 2024-06-03 09:08:00 75 mm[Hg] Aiadn phen F Kevin Weight Measured 2024-06-03 09:08:00 140.80 pounds Topher F Kevin Height Measured 2024-06-03 09:08:00 65.00 inches Topher F Kevin Body Temperature 2024-06-03 09:08:00 98.20 degrees Topher F Kevin Heart Rate 2024-06-03 09:08:00 96.00 /min [facility] Respiratory Rate 2024-06-03 09:08:00 17.00 /min Topher F Kevin BP Systolic 2024-05-23 10:52:00 107 mm[Hg] [facility] BP Diastolic 2024-05-23 10:52:00 64 mm[Hg] Aidan phen F Kevin Weight Measured 2024-05-23 10:52:00 143.40 pounds Topher F Kevin Height Measured 2024-05-23 10:52:00 65.00 inches Topher F Kevin Body Temperature 2024-05-23 10:52:00 98.30 degrees Topher F Kevin Heart Rate 2024-05-23 10:52:00 77.00 /min [facility] Respiratory Rate 2024-05-23 10:52:00 Topher F Kevin BP Systolic 2024-05-03 10:39:00 107 mm[Hg] [facility] BP Diastolic 2024-05-03 10:39:00 61 mm[Hg] Aidan phen F Kevin Weight Measured 2024-05-03 10:39:00 143.00 pounds Topher F Kevin Height Measured 2024-05-03 10:39:00 65.00 inches Topher F Kevin Body Temperature 2024-05-03 10:39:00 97.90 degrees Topher F Kevin Heart Rate 2024-05-03 10:39:00 70.00 /min [facility] Respiratory Rate 2024-05-03 10:39:00 17.00 /min Topher F Kevin BP Systolic 2024-01-24 15:35:00 118 mm[Hg] Step [facility] BP Diastolic 2024-01-24 15:35:00 65 mm[Hg] Aidan phen F Kevin Weight Measured 2024-01-24 15:35:00 141.60 pounds Topher F Kevin Height Measured 2024-01-24 15:35:00 65.00 inches Topher F Kevin Body Temperature 2024-01-24 15:35:00 97.60 degrees Topher F Kevin Heart Rate 2024-01-24 15:35:00 75.00 /min Rosie [facility] Respiratory Rate 2024-01-24 15:35:00 18.00 /min Topher F Kevin BP Systolic 2023-11-20 10:15:00 116 mm[Hg] Step [facility] BP Diastolic 2023-11-20 10:15:00 72 mm[Hg] Aidan phen F Kevin Weight Measured 2023-11-20 10:15:00 148.60 pounds Topher F Kevin Height Measured 2023-11-20 10:15:00 65.00 inches Topher F Kevin Body Temperature 2023-11-20 10:15:00 98.00 degrees Topher F Kevin Heart Rate 2023-11-20 10:15:00 66.00 /min [facility] Respiratory Rate 2023-11-20 10:15:00 16.00 /min Topher F Kevin BP Systolic 2023-09-30 13:19:00 127 mm[Hg] Step [facility] BP Diastolic 2023-09-30 13:19:00 74 mm[Hg] Aidan phen F Kevin Weight Measured 2023-09-30 13:19:00 147.00 pounds Topher F Kevin Height Measured 2023-09-30 13:19:00 65.00 inches Topher F Kevin Body Temperature 2023-09-30 13:19:00 97.90 degrees Topher F Kevin Heart Rate 2023-09-30 13:19:00 74.00 /min Rosie en F Kevin Respiratory Rate 2023-09-30 13:19:00 18.00 /min Topher F Kevin BP Systolic 2023-04-15 10:55:00 108 mm[Hg] Step hen F Kevin BP Diastolic 2023-04-15 10:55:00 65 mm[Hg] Aidan phen F Kevin Weight Measured 2023-04-15 10:55:00 140.80 pounds Topher F Kevin Height Measured 2023-04-15 10:55:00 65.00 inches Topher F Kevin Body Temperature 2023-04-15 10:55:00 98.20 degrees Topher F Kevin Heart Rate 2023-04-15 10:55:00 82.00 /min Rosie en F Kevin Respiratory Rate 2023-04-15 10:55:00 Topher F Kevin BP Systolic 2023-03-02 10:01:00 119 mm[Hg] Step hen F Kevin BP Diastolic 2023-03-02 10:01:00 73 mm[Hg] Aidan phen F Kevin Weight Measured 2023-03-02 10:01:00 142.60 pounds Topher F Kevin Height Measured 2023-03-02 10:01:00 65.00 inches Topher F Kevin Body Temperature 2023-03-02 10:01:00 98.20 degrees Topher F Kevin Heart Rate 2023-03-02 10:01:00 73.00 /min Rosie en F Kevin Respiratory Rate 2023-03-02 10:01:00 17.00 /min Topher F Kevin BP Systolic 2023-02-21 10:57:00 116 mm[Hg] Step hen F Kevin BP Diastolic 2023-02-21 10:57:00 74 mm[Hg] Aidan phen F Kevin Weight Measured 2023-02-21 10:57:00 142.80 pounds Topher F Kevin Height Measured 2023-02-21 10:57:00 65.00 inches Topher F Kvein Body Temperature 2023-02-21 10:57:00 98.20 degrees Topher F Kevin Heart Rate 2023-02-21 10:57:00 83.00 /min Rosie en F Kevin Respiratory Rate 2023-02-21 10:57:00 17.00 /min Topher F Kevin BP Systolic 2022-12-15 11:09:00 109 mm[Hg] Step hen F Kevin BP Diastolic 2022-12-15 11:09:00 73 mm[Hg] Aidan phen F Kevin Weight Measured 2022-12-15 11:09:00 144.20 pounds Topher F Kevin Height Measured 2022-12-15 11:09:00 65.00 inches Topher F Kevin Body Temperature 2022-12-15 11:09:00 97.00 degrees Topher F Kevin Heart Rate 2022-12-15 11:09:00 80.00 /min Rosie en F Kevin Respiratory Rate 2022-12-15 11:09:00 Topher F Kevin BP Systolic 2022-11-22 09:48:00 109 mm[Hg] Step hen F Kevin BP Diastolic 2022-11-22 09:48:00 69 mm[Hg] Aidan phen F Kevin Weight Measured 2022-11-22 09:48:00 143.00 pounds Topher F Kevin Height Measured 2022-11-22 09:48:00 65.00 inches Topher F Kevin Body Temperature 2022-11-22 09:48:00 98.10 degrees Topher F Kevin Heart Rate 2022-11-22 09:48:00 80.00 /min Rosie en F Kevin Respiratory Rate 2022-11-22 09:48:00 19.00 /min Topher F Kevin BP Systolic 2022-09-20 11:36:00 114 mm[Hg] Step hen F Kevin BP Diastolic 2022-09-20 11:36:00 70 mm[Hg] Aidan phen F Kevin Weight Measured 2022-09-20 11:36:00 142.80 pounds Topher F Kevin Height Measured 2022-09-20 11:36:00 65.00 inches Topher F Kevin Body Temperature 2022-09-20 11:36:00 98.10 degrees Topher F Kevin Heart Rate 2022-09-20 11:36:00 95.00 /min Rosie en F Kevin Respiratory Rate 2022-09-20 11:36:00 18.00 /min Topher F Kevin BP Systolic 2022-09-06 09:22:00 130 mm[Hg] Step hen F Kevin BP Diastolic 2022-09-06 09:22:00 78 mm[Hg] Aidan phen F Kevin Weight Measured 2022-09-06 09:22:00 142.00 pounds Topher F Kevin Height Measured 2022-09-06 09:22:00 65.00 inches Topher F Kevin Body Temperature 2022-09-06 09:22:00 98.30 degrees Topher F Kevin Heart Rate 2022-09-06 09:22:00 82.00 /min Rosie en F Kevin Respiratory Rate 2022-09-06 09:22:00 17.00 /min Topher F Kevin BP Systolic 2022-08-02 10:12:00 130 mm[Hg] Step hen F Kevin BP Diastolic 2022-08-02 10:12:00 85 mm[Hg] Aidan phen F Kevin Weight Measured 2022-08-02 10:12:00 145.60 pounds Topher F Kevin Height Measured 2022-08-02 10:12:00 65.00 inches Topher F Kevin Body Temperature 2022-08-02 10:12:00 98.20 degrees Topher F Kevin Heart Rate 2022-08-02 10:12:00 94.00 /min Rosie en F Kevin Respiratory Rate 2022-08-02 10:12:00 18.00 /min Topher F Kevin BP Systolic 2022-03-09 13:31:00 116 mm[Hg] BP Diastolic 2022-03-09 13:31:00 70 mm[Hg] Weight Measured 2022-03-09 13:31:00 162.40 pounds Height Measured 2022-03-09 13:31:00 65.00 inches Body Temperature 2022-03-09 13:31:00 98.00 degrees Heart Rate 2022-03-09 13:31:00 96.00 /min Respiratory Rate 2022-03-09 13:31:00 17.00 /min BP Systolic 2022-02-24 13:20:00 139 mm[Hg] BP Diastolic 2022-02-24 13:20:00 69 mm[Hg] Weight Measured 2022-02-24 13:20:00 162.00 pounds Height Measured 2022-02-24 13:20:00 65.00 inches Body Temperature 2022-02-24 13:20:00 98.10 degrees Heart Rate 2022-02-24 13:20:00 94.00 /min Respiratory Rate 2022-02-24 13:20:00 18.00 /min BP Systolic 2022-02-01 14:55:00 133 mm[Hg] BP Diastolic 2022-02-01 14:55:00 77 mm[Hg] Weight Measured 2022-02-01 14:55:00 158.80 pounds Height Measured 2022-02-01 14:55:00 65.00 inches Body Temperature 2022-02-01 14:55:00 98.00 degrees Heart Rate 2022-02-01 14:55:00 88.00 /min Respiratory Rate 2022-02-01 14:55:00 17.00 /min BP Systolic 2022-01-18 11:23:00 125 mm[Hg] BP Diastolic 2022-01-18 11:23:00 78 mm[Hg] Weight Measured 2022-01-18 11:23:00 162.40 pounds Height Measured 2022-01-18 11:23:00 65.00 inches Body Temperature 2022-01-18 11:23:00 98.20 degrees Heart Rate 2022-01-18 11:23:00 96.00 /min Respiratory Rate 2022-01-18 11:23:00 17.00 /min BP Systolic 2022-01-04 13:52:00 133 mm[Hg] BP Diastolic 2022-01-04 13:52:00 77 mm[Hg] Weight Measured 2022-01-04 13:52:00 164.60 pounds Height Measured 2022-01-04 13:52:00 65.00 inches Body Temperature 2022-01-04 13:52:00 98.10 degrees Heart Rate 2022-01-04 13:52:00 96.00 /min Respiratory Rate 2022-01-04 13:52:00 18.00 /min BP Systolic 2021-12-22 17:07:00 117 mm[Hg] BP Diastolic 2021-12-22 17:07:00 76 mm[Hg] Weight Measured 2021-12-22 17:07:00 165.00 pounds Height Measured 2021-12-22 17:07:00 65.00 inches Body Temperature 2021-12-22 17:07:00 98.20 degrees Heart Rate 2021-12-22 17:07:00 83.00 /min Respiratory Rate 2021-12-22 17:07:00 17.00 /min BP Systolic 2021-12-14 13:28:00 133 mm[Hg] BP Diastolic 2021-12-14 13:28:00 76 mm[Hg] Weight Measured 2021-12-14 13:28:00 166.60 pounds Height Measured 2021-12-14 13:28:00 65.00 inches Body Temperature 2021-12-14 13:28:00 98.20 degrees Heart Rate 2021-12-14 13:28:00 87.00 /min Respiratory Rate 2021-12-14 13:28:00 18.00 /min BP Systolic 2021-11-17 13:31:00 130 mm[Hg] BP Diastolic 2021-11-17 13:31:00 70 mm[Hg] Weight Measured 2021-11-17 13:31:00 168.60 pounds Height Measured 2021-11-17 13:31:00 65.00 inches Body Temperature 2021-11-17 13:31:00 98.20 degrees Heart Rate 2021-11-17 13:31:00 76.00 /min Respiratory Rate 2021-11-17 13:31:00 21.00 /min BP Systolic 2021-10-28 13:47:00 131 mm[Hg] BP Diastolic 2021-10-28 13:47:00 76 mm[Hg] Weight Measured 2021-10-28 13:47:00 168.40 pounds Height Measured 2021-10-28 13:47:00 65.00 inches Body Temperature 2021-10-28 13:47:00 98.10 degrees Heart Rate 2021-10-28 13:47:00 67.00 /min Respiratory Rate 2021-10-28 13:47:00 18.00 /min BP Systolic 2021-09-04 15:00:00 159 mm[Hg] BP Diastolic 2021-09-04 15:00:00 78 mm[Hg] Weight Measured 2021-09-04 15:00:00 169.20 pounds Height Measured 2021-09-04 15:00:00 65.00 inches Body Temperature 2021-09-04 15:00:00 97.90 degrees Heart Rate 2021-09-04 15:00:00 80.00 /min Respiratory Rate 2021-09-04 15:00:00 18.00 /min BP Systolic 2021-07-28 08:42:00 153 mm[Hg] BP Diastolic 2021-07-28 08:42:00 84 mm[Hg] Weight Measured 2021-07-28 08:42:00 171.80 pounds Height Measured 2021-07-28 08:42:00 65.00 inches Body Temperature 2021-07-28 08:42:00 98.10 degrees Heart Rate 2021-07-28 08:42:00 81.00 /min Respiratory Rate 2021-07-28 08:42:00 16.00 /min BP Systolic 2021-07-20 14:18:00 122 mm[Hg] BP Diastolic 2021-07-20 14:18:00 83 mm[Hg] Weight Measured 2021-07-20 14:18:00 169.20 pounds Height Measured 2021-07-20 14:18:00 65.00 inches Body Temperature 2021-07-20 14:18:00 97.90 degrees Heart Rate 2021-07-20 14:18:00 98.00 /min Respiratory Rate 2021-07-20 14:18:00 18.00 /min BP Systolic 2021-07-15 11:09:00 126 mm[Hg] BP Diastolic 2021-07-15 11:09:00 76 mm[Hg] Weight Measured 2021-07-15 11:09:00 169.20 pounds Height Measured 2021-07-15 11:09:00 65.00 inches Body Temperature 2021-07-15 11:09:00 98.30 degrees Heart Rate 2021-07-15 11:09:00 92.00 /min Respiratory Rate 2021-07-15 11:09:00 BP Systolic 2021-06-23 11:01:00 134 mm[Hg] BP Diastolic 2021-06-23 11:01:00 74 mm[Hg] Weight Measured 2021-06-23 11:01:00 170.20 pounds Height Measured 2021-06-23 11:01:00 65.00 inches Body Temperature 2021-06-23 11:01:00 98.40 degrees Heart Rate 2021-06-23 11:01:00 84.00 /min Respiratory Rate 2021-06-23 11:01:00 18.00 /min Procedures Procedure Date / Time Performed Performing Clinicia n Source ELINA EXTREMITY STRESS - BY VASCULAR LAB 2023-02-03 14:29:05 Gladys Mcpherson [facility] REFERRAL- REQUEST/RESPONSE 2023-01-31 05:01:00 Doctor Unassigned, [facility] ASSIGNMENT OF BENEFITS 2022-12-29 13:43:44 Docto r Unassigned, [facility] REFERRAL- REQUEST/RESPONSE 2022-12-20 05:01:00 Doctor Unassigned, [facility] SURGICAL PATHOLOGY EXAM 2021-04-30 20:37:00 Ann Valdez [facility] XRAY Sacrum and coccyx series [id number] 2019-09-17 00:00:00 [facility] XRAY Spine lumbar series [id number] 2019-09-17 00:00:00 [facility] 67700 Ecg Routine Ecg W/least 12 Lds W/i r 2016-05-19 00:00:00 Topher Brown History of Cyst excision [facility] Plan of Care Planned Activity Planned Date Details Comments Source Goal Plan of Care Note [code = 33596-3] Goal Plan of Care Note [code = 49129-1] Goal Plan of Care Note [code = 79490-6] Goal Plan of Care Note [code = 54434-9] Goal Plan of Care Note [code = 70126-1] Goal Plan of Care Note [code = 77107-4] Goal Plan of Care Note [code = 06652-4] Goal Plan of Care Note [code = 80851-0] Goal Plan of Care Note [code = 67829-4] Goal Plan of Care Note [code = 15310-5] Goal Plan of Care Note [code = 84226-7] Goal Plan of Care Note [code = 88489-8] Goal Plan of Care Note [code = 48591-3] Goal Plan of Care Note [code = 27317-9] Goal Plan of Care Note [code = 80020-8] Goal Plan of Care Note [code = 52289-0] Goal Plan of Care Note [code = 00311-7] Goal Plan of Care Note [code = 45801-7] Goal Plan of Care Note [code = 86079-0] Goal Plan of Care Note [code = 83306-1] Goal Plan of Care Note [code = 94420-2] Goal Plan of Care Note [code = 61418-2] Goal Plan of Care Note [code = 33446-5] Goal Plan of Care Note [code = 53525-9] Goal Plan of Care Note [code = 44950-3] Goal Plan of Care Note [code = 52587-2] Goal Plan of Care Note [code = 51711-0] Goal Plan of Care Note [code = 66090-9] Goal Plan of Care Note [code = 21775-6] Goal Plan of Care Note [code = 47887-1] Goal Plan of Care Note [code = 66363-6] Goal Plan of Care Note [code = 59781-7] Goal Plan of Care Note [code = 02969-4] Goal Plan of Care Note [code = 63363-4] Goal Plan of Care Note [code = 41039-7] Goal Plan of Care Note [code = 81169-7] Goal Plan of Care Note [code = 94312-0] Goal Plan of Care Note [code = 68376-6] Goal Plan of Care Note [code = 33188-3] Goal Plan of Care Note [code = 81001-6] Goal Plan of Care Note [code = 97607-9] Goal Plan of Care Note [code = 95735-5] Goal Plan of Care Note [code = 66595-8] Goal Plan of Care Note [code = 01816-1] Goal Plan of Care Note [code = 97000-4] Goal Plan of Care Note [code = 19417-7] Goal Plan of Care Note [code = 26514-2] Goal Plan of Care Note [code = 68568-4] Goal Plan of Care Note [code = 88139-8] Goal Plan of Care Note [code = 92805-4] Goal Plan of Care Note [code = 22926-4] Goal Plan of Care Note [code = 78470-6] Goal Plan of Care Note [code = 24741-1] Goal Plan of Care Note [code = 95665-2] Goal Plan of Care Note [code = 05032-2] Goal Plan of Care Note [code = 32685-3] Goal Plan of Care Note [code = 70979-3] Goal Plan of Care Note [code = 87864-1] Goal Plan of Care Note [code = 92472-6] Goal Plan of Care Note [code = 98621-3] Goal Plan of Care Note [code = 72756-1] Goal Plan of Care Note [code = 16206-2] Goal Plan of Care Note [code = 64217-3] Goal Plan of Care Note [code = 25786-7] Goal Plan of Care Note [code = 00611-2] Goal Plan of Care Note [code = 04608-8] Goal Plan of Care Note [code = 16737-8] Goal Plan of Care Note [code = 27629-9] Goal Plan of Care Note [code = 72865-1] Goal Plan of Care Note [code = 37661-5] Goal Plan of Care Note [code = 61537-0] Goal Plan of Care Note [code = 58097-9] Goal Plan of Care Note [code = 30343-2] Goal Plan of Care Note [code = 41913-3] Goal Plan of Care Note [code = 32533-5] Goal Plan of Care Note [code = 49913-9] Goal Plan of Care Note [code = 43982-9] Goal Plan of Care Note [code = 14598-1] Goal Plan of Care Note [code = 07918-9] Goal Plan of Care Note [code = 71226-1] Goal Plan of Care Note [code = 52845-9] Goal Plan of Care Note [code = 47090-2] Goal Plan of Care Note [code = 28834-0] Goal Plan of Care Note [code = 25476-2] Goal Plan of Care Note [code = 70508-7] Goal Plan of Care Note [code = 99247-1] Goal Plan of Care Note [code = 65153-1] Goal Plan of Care Note [code = 53321-7] Goal Plan of Care Note [code = 74827-6] Goal Plan of Care Note [code = 35947-9] Goal Plan of Care Note [code = 69585-7] Goal Plan of Care Note [code = 21856-1] Goal Plan of Care Note [code = 52401-5] Goal Plan of Care Note [code = 97349-7] Goal Plan of Care Note [code = 10754-3] Goal Plan of Care Note [code = 01371-7] Goal Plan of Care Note [code = 61130-6] Goal Plan of Care Note [code = 05710-7] Goal Plan of Care Note [code = 15097-4] Goal Plan of Care Note [code = 63396-2] Goal Plan of Care Note [code = 21518-5] Goal Plan of Care Note [code = 47441-8] Goal Plan of Care Note [code = 63220-6] Goal Plan of Care Note [code = 88758-1] Goal Plan of Care Note [code = 62197-2] Goal Plan of Care Note [code = 22179-0] Goal Plan of Care Note [code = 97801-5] Goal Plan of Care Note [code = 67163-8] Goal Plan of Care Note [code = 29184-3] Goal Plan of Care Note [code = 33332-6] Goal Plan of Care Note [code = 43122-8] Goal Plan of Care Note [code = 23313-5] Goal Plan of Care Note [code = 35716-9] Goal Plan of Care Note [code = 60390-4] Goal Plan of Care Note [code = 04242-5] Goal Plan of Care Note [code = 00988-3] Goal Plan of Care Note [code = 59477-1] Goal Plan of Care Note [code = 88316-0] Goal Plan of Care Note [code = 44143-2] Goal Plan of Care Note [code = 39706-9] Goal Plan of Care Note [code = 54436-4] Goal Plan of Care Note [code = 39291-3] Goal Plan of Care Note [code = 11327-1] Goal Plan of Care Note [code = 35345-4] Goal Plan of Care Note [code = 37647-1] Goal Plan of Care Note [code = 09914-0] Goal Plan of Care Note [code = 38803-1] Goal Plan of Care Note [code = 99306-0] Goal Plan of Care Note [code = 82585-9] Goal Plan of Care Note [code = 94606-4] Goal Plan of Care Note [code = 44989-6] Goal Plan of Care Note [code = 16777-4] Goal Plan of Care Note [code = 79473-7] Goal Plan of Care Note [code = 24163-4] Goal Plan of Care Note [code = 31979-7] Goal Plan of Care Note [code = 56586-5] Goal Plan of Care Note [code = 88136-6] Goal Plan of Care Note [code = 27763-0] Goal Plan of Care Note [code = 21855-5] Goal Plan of Care Note [code = 26189-5] Goal Plan of Care Note [code = 16316-2] Goal Plan of Care Note [code = 40617-4] Goal Plan of Care Note [code = 23563-0] Goal Plan of Care Note [code = 22526-1] Goal Plan of Care Note [code = 70676-9] Goal Plan of Care Note [code = 42073-8] Goal Plan of Care Note [code = 08481-5] Goal Plan of Care Note [code = 93418-4] Goal Plan of Care Note [code = 65620-4] Goal Plan of Care Note [code = 56520-4] Goal Plan of Care Note [code = 80446-4] Goal Plan of Care Note [code = 51030-2] Goal Plan of Care Note [code = 87110-4] Goal Plan of Care Note [code = 06820-5] Goal Plan of Care Note [code = 03712-8] Goal Plan of Care Note [code = 39629-9] Goal Plan of Care Note [code = 70993-4] Goal Plan of Care Note [code = 99648-9] Goal Plan of Care Note [code = 25491-0] Goal Plan of Care Note [code = 16016-3] Goal Plan of Care Note [code = 53716-9] Goal Plan of Care Note [code = 87103-3] Goal Plan of Care Note [code = 44518-8] Goal Plan of Care Note [code = 52689-5] Goal Plan of Care Note [code = 76564-3] Goal Plan of Care Note [code = 34074-1] Goal Plan of Care Note [code = 43216-7] Goal Plan of Care Note [code = 85814-1] Goal Plan of Care Note [code = 22398-5] Goal Plan of Care Note [code = 50519-2] Goal Plan of Care Note [code = 33018-1] Goal Plan of Care Note [code = 78097-3] Goal Plan of Care Note [code = 67863-1] Goal Plan of Care Note [code = 32247-7] Goal Plan of Care Note [code = 60822-5] Goal Plan of Care Note [code = 77898-4] Goal Plan of Care Note [code = 16237-4] Goal Plan of Care Note [code = 02982-8] Goal Plan of Care Note [code = 56899-8] Goal Plan of Care Note [code = 79635-2] Goal Plan of Care Note [code = 48569-7] Goal Plan of Care Note [code = 36081-3] Goal Plan of Care Note [code = 88796-2] Goal Plan of Care Note [code = 92866-7] Goal Plan of Care Note [code = 53525-2] Goal Plan of Care Note [code = 39450-7] Goal Plan of Care Note [code = 20773-0] Goal Plan of Care Note [code = 77466-2] Goal Plan of Care Note [code = 87175-5] Goal Plan of Care Note [code = 92894-3] Goal Plan of Care Note [code = 92877-9] Goal Plan of Care Note [code = 09709-0] Goal Plan of Care Note [code = 60520-5] Goal Plan of Care Note [code = 85835-5] Goal Plan of Care Note [code = 30103-4] Goal Plan of Care Note [code = 85621-8] Goal Plan of Care Note [code = 07492-6] Goal Plan of Care Note [code = 18450-1] Goal Plan of Care Note [code = 36109-1] Goal Plan of Care Note [code = 94512-8] Goal Plan of Care Note [code = 73378-4] Goal Plan of Care Note [code = 16212-4] Goal Plan of Care Note [code = 04186-5] Goal Plan of Care Note [code = 15069-5] Goal Plan of Care Note [code = 22530-7] Goal Plan of Care Note [code = 39781-3] Goal Plan of Care Note [code = 99254-0] Goal Plan of Care Note [code = 78201-8] Goal Plan of Care Note [code = 17734-4] Goal Plan of Care Note [code = 89226-0] Goal Plan of Care Note [code = 16476-6] Goal Plan of Care Note [code = 99361-6] Goal Plan of Care Note [code = 93459-1] Goal Plan of Care Note [code = 48491-5] Goal Plan of Care Note [code = 03225-5] Goal Plan of Care Note [code = 83128-4] Goal Plan of Care Note [code = 74902-0] Goal Plan of Care Note [code = 93728-3] Goal Plan of Care Note [code = 64436-5] Goal Plan of Care Note [code = 90458-1] Goal Plan of Care Note [code = 11825-9] Goal Plan of Care Note [code = 45210-9] Goal Plan of Care Note [code = 78347-0] Goal Plan of Care Note [code = 66107-4] Goal Plan of Care Note [code = 57429-7] Goal Plan of Care Note [code = 21325-9] Goal Plan of Care Note [code = 04689-8] Goal Plan of Care Note [code = 66861-2] Goal Plan of Care Note [code = 61246-7] Goal Plan of Care Note [code = 77416-1] Goal Plan of Care Note [code = 42851-6] Goal Plan of Care Note [code = 27916-5] Goal Plan of Care Note [code = 92494-5] Goal Plan of Care Note [code = 46694-6] Goal Plan of Care Note [code = 62526-2] Goal Plan of Care Note [code = 45448-2] Goal Plan of Care Note [code = 93622-0] Goal Plan of Care Note [code = 80134-3] Goal Plan of Care Note [code = 06466-0] Goal Plan of Care Note [code = 34497-7] Goal Plan of Care Note [code = 90529-5] Goal Plan of Care Note [code = 31593-2] Goal Plan of Care Note [code = 18669-2] Goal Plan of Care Note [code = 86772-1] Goal Plan of Care Note [code = 02881-0] Goal Plan of Care Note [code = 24322-4] Goal Plan of Care Note [code = 38587-6] Goal Plan of Care Note [code = 76310-7] Goal Plan of Care Note [code = 94012-8] Goal Plan of Care Note [code = 02588-9] Goal Plan of Care Note [code = 02412-6] Goal Plan of Care Note [code = 53584-1] Goal Plan of Care Note [code = 50692-9] Goal Plan of Care Note [code = 03829-4] Goal Plan of Care Note [code = 52967-1] Goal Plan of Care Note [code = 74671-2] Goal Plan of Care Note [code = 51261-4] Goal Plan of Care Note [code = 84961-3] Goal Plan of Care Note [code = 40134-8] Goal Plan of Care Note [code = 06468-5] Goal Plan of Care Note [code = 46914-8] Goal Plan of Care Note [code = 22499-9] Goal Plan of Care Note [code = 54556-4] Goal Plan of Care Note [code = 69769-5] Goal Plan of Care Note [code = 36379-2] Goal Plan of Care Note [code = 72932-9] Goal Plan of Care Note [code = 46464-2] Goal Plan of Care Note [code = 05375-0] Goal Plan of Care Note [code = 88014-0] Goal Plan of Care Note [code = 37043-8] Goal Plan of Care Note [code = 81845-9] Goal Plan of Care Note [code = 74834-3] Goal Plan of Care Note [code = 37402-9] Goal Plan of Care Note [code = 00726-9] Goal Plan of Care Note [code = 29566-6] Goal Plan of Care Note [code = 99714-3] Goal Plan of Care Note [code = 49312-1] Goal Plan of Care Note [code = 61454-1] Goal Plan of Care Note [code = 33459-5] Goal Plan of Care Note [code = 74414-7] Goal Plan of Care Note [code = 30727-7] Goal Plan of Care Note [code = 79918-5] Goal Plan of Care Note [code = 78721-8] Goal Plan of Care Note [code = 26947-8] Goal Plan of Care Note [code = 91461-9] Goal Plan of Care Note [code = 36439-4] Goal Plan of Care Note [code = 94715-3] Goal Plan of Care Note [code = 61625-6] Goal Plan of Care Note [code = 38889-3] Goal Plan of Care Note [code = 38318-4] Goal Plan of Care Note [code = 49238-5] Goal Plan of Care Note [code = 42621-3] Goal Plan of Care Note [code = 91604-6] Goal Plan of Care Note [code = 32111-3] Goal Plan of Care Note [code = 68544-9] Goal Plan of Care Note [code = 99794-3] Goal Plan of Care Note [code = 80644-0] Goal Plan of Care Note [code = 03518-7] Goal Plan of Care Note [code = 40407-0] Goal Plan of Care Note [code = 76255-7] Goal Plan of Care Note [code = 60621-8] Goal Plan of Care Note [code = 64713-0] Goal Plan of Care Note [code = 18868-4] Goal Plan of Care Note [code = 32752-2] Goal Plan of Care Note [code = 06290-3] Goal Plan of Care Note [code = 86874-2] Goal Plan of Care Note [code = 11386-6] Goal Plan of Care Note [code = 03812-9] Goal Plan of Care Note [code = 55242-9] Goal Plan of Care Note [code = 48155-5] Goal Plan of Care Note [code = 08875-2] Goal Plan of Care Note [code = 39135-8] Goal Plan of Care Note [code = 78897-3] Goal Plan of Care Note [code = 22798-3] Goal Plan of Care Note [code = 74464-1] Goal Plan of Care Note [code = 48864-8] Goal Plan of Care Note [code = 07185-7] Goal Plan of Care Note [code = 71697-5] Goal Plan of Care Note [code = 44044-7] Goal Plan of Care Note [code = 71355-4] Goal Plan of Care Note [code = 88114-5] Goal Plan of Care Note [code = 79159-4] Goal Plan of Care Note [code = 07616-3] Goal Plan of Care Note [code = 60684-2] Goal Plan of Care Note [code = 61407-5] Goal Plan of Care Note [code = 57744-4] Goal Plan of Care Note [code = 11610-7] Goal Plan of Care Note [code = 52428-2] Goal Plan of Care Note [code = 63632-8] Goal Plan of Care Note [code = 22940-6] Goal Plan of Care Note [code = 89902-7] Goal Plan of Care Note [code = 30717-6] Goal Plan of Care Note [code = 28415-3] Goal Plan of Care Note [code = 69300-0] Goal Plan of Care Note [code = 08107-3] Goal Plan of Care Note [code = 67581-7] Goal Plan of Care Note [code = 16196-3] Goal Plan of Care Note [code = 51846-5] Goal Plan of Care Note [code = 99693-6] Goal Plan of Care Note [code = 96723-4] Goal Plan of Care Note [code = 91791-3] Goal Plan of Care Note [code = 32652-3] Goal Plan of Care Note [code = 86479-6] Goal Plan of Care Note [code = 18843-0] Goal Plan of Care Note [code = 66153-6] Goal Plan of Care Note [code = 60453-1] Goal Plan of Care Note [code = 22514-0] Goal Plan of Care Note [code = 58518-9] Goal Plan of Care Note [code = 25133-6] Goal Plan of Care Note [code = 97719-2] Goal Plan of Care Note [code = 92590-6] Goal Plan of Care Note [code = 30125-4] Goal Plan of Care Note [code = 17643-7] Goal Plan of Care Note [code = 99158-8] Goal Plan of Care Note [code = 48730-5] Goal Plan of Care Note [code = 02825-5] Goal Plan of Care Note [code = 23331-7] Goal Plan of Care Note [code = 54175-9] Goal Plan of Care Note [code = 75462-5] Goal Plan of Care Note [code = 99365-1] Goal Plan of Care Note [code = 77181-0] Goal Plan of Care Note [code = 72183-4] Goal Plan of Care Note [code = 96323-0] Goal Plan of Care Note [code = 66863-6] Goal Plan of Care Note [code = 15888-0] Goal Plan of Care Note [code = 62925-9] Goal Plan of Care Note [code = 12902-6] Goal Plan of Care Note [code = 20556-9] Goal Plan of Care Note [code = 82700-4] Goal Plan of Care Note [code = 86621-7] Goal Plan of Care Note [code = 54785-1] Goal Plan of Care Note [code = 64867-0] Goal Plan of Care Note [code = 33083-3] Goal Plan of Care Note [code = 82069-8] Goal Plan of Care Note [code = 27878-0] Goal Plan of Care Note [code = 87975-8] Goal Plan of Care Note [code = 12668-2] Goal Plan of Care Note [code = 05345-4] Goal Plan of Care Note [code = 09716-8] Goal Plan of Care Note [code = 09594-7] Goal Plan of Care Note [code = 35405-7] Goal Plan of Care Note [code = 53103-0] Goal Plan of Care Note [code = 75310-6] Goal Plan of Care Note [code = 25642-4] Goal Plan of Care Note [code = 65139-8] Goal Plan of Care Note [code = 03662-0] Encounters Start Date/Time End Date/Time Encounter Type Admission Type Attending [facility] Care Facility Care Department Encounter ID Source 2021-05-01 21:23:08 Outpatient MELODY SANZ [facility] [id number] [facility] 2024-08-29 10:59:46 2024-08-29 10:59:46 Outpatient SFA [facility] [id number] Topher Cam Kevin 2024-08-22 00:00:00 2024-08-22 00:00:00 Outpatient Visit MARIA DOLORES [id number] [id number] Topher Brown 2024-08-09 13:33:01 2024-08-09 13:33:01 Outpatient SFA [facility] [id number] Topher Brown 2024-08-09 00:00:00 2024-08-09 00:00:00 Outpatient Visit SFA [id number] ac5-4117-8 [id number]-e71b10 e4f31c Topher Brown 2024-06-24 13:14:20 2024-06-24 13:14:20 Outpatient SFA [facility] [id number] Topher Brown 2024-06-10 00:00:00 2024-06-10 00:00:00 Outpatient Visit SFA [id number] 865-43b2-b [id number] cbefd3 Topher Brown 2024-06-03 08:56:41 2024-06-03 08:56:41 Outpatient SFA S[facility] [id number] Topher Brown 2024-06-03 00:00:00 2024-06-03 00:00:00 Outpatient Visit SFA [id number] [id number]-40a3-9 [id number] [id number] Topher Brown 2024-05-23 10:35:13 2024-05-23 10:35:13 Outpatient SFA S[facility] [id number] Topher Brown 2024-05-23 00:00:00 2024-05-23 00:00:00 Outpatient Visit SFA [id number] 147-479d-a ca2-4d57e6 [id number] Topher Brown 2024-05-03 10:15:11 2024-05-03 10:15:11 Outpatient SFA S[facility] [id number] Topher Brown 2024-05-03 00:00:00 2024-05-03 00:00:00 Outpatient Visit SFA [id number] 5m5-06w1-9 568-3f7fe3 y0732m Topher Brown 2024-01-24 15:26:08 2024-01-24 15:26:08 Outpatient SFA S[facility] [id number] Topher Brown 2024-01-24 00:00:00 2024-01-24 00:00:00 Outpatient Visit SFA [id number] v94-51j5-7 [id number] [id number] Topher Brown 2023-11-20 17:06:49 2023-11-20 17:06:49 Outpatient SFA S[facility] [id number] Topher Brown 2023-11-20 00:00:00 2023-11-20 00:00:00 Outpatient Visit SFA [id number] [id number]-a [id number] [id number] Topher Brown 2023-09-30 13:10:59 2023-09-30 13:10:59 Outpatient SFA S[facility] [id number] Topher Brown 2023-07-19 00:00:00 2023-07-19 00:00:00 Outpatient Visit SFA [id number] 38c-4e54-a m45-2al6y1 [id number] Topher Brown 2023-07-12 11:35:00 2023-07-12 11:35:00 Outpatient SFA S[facility] [id number] Topher Brown 2023-05-02 00:00:00 2023-05-02 00:00:00 Outpatient GC_GCBZW_Ka diyala_S PRIV PRIV [id number] [facility] 2023-04-17 09:25:58 2023-04-17 09:25:58 Outpatient SFA S[facility] [id number] Topher Brown 2023-04-15 10:53:36 2023-04-15 10:53:36 Outpatient SFA S[facility] [id number] Topher Brown 2023-03-02 09:36:08 2023-03-02 09:36:08 Outpatient SFA S[facility] [id number] Topher Brown 2023-02-21 10:46:47 2023-02-21 10:46:47 Outpatient SFA [facility] [id number] Topher Brown 2023-02-08 09:00:00 2023-02-08 09:00:00 Outpatient R KARLA, [facility] [id number] [facility] 2023-02-06 00:00:00 2023-02-06 00:00:00 Telephone Karla [facility] 1.2.840.114 350.1.13.10 4.2.7.2.686 [id number] [facility] 2023-02-03 08:26:19 2023-02-03 23:59:00 Outpatient R KARLA [facility] [id number] [facility] 2023-02-03 08:26:19 2023-02-03 23:59:00 Hospital Encounter Karla [facility] 1.2.840.114 350.1.13.10 4.2.7.2.686 [id number] [facility] 2023-01-31 00:00:00 2023-01-31 00:00:00 Orders Only Doctor Unassigned, [place] [facility] 1.840.114 350.1.13.10 4.2.7.2.686 [id number] [facility] 2022-12-29 09:20:00 2022-12-29 09:28:32 Outpatient R KARLA [facility] [id number] [facility] 2022-12-29 09:20:00 2022-12-29 09:28:32 Office Visit Karla [facility] 1.2.840.114 350.1.13.10 4.2.7.2.686 [id number] [facility] 2022-12-29 00:00:00 2022-12-29 00:00:00 Orders Only Doctor Unassigned, [place] [facility] 1.2840.114 350.1.13.10 4.2.7.2.686 [id number] [facility] 2022-12-20 08:19:43 2022-12-20 08:19:43 Outpatient SFA S[facility] [id number] Topher Brown 2022-12-20 00:00:00 2022-12-20 00:00:00 Orders Only Doctor Unassigned, [place] [facility] 1.2.840.114 350.1.13.10 4.2.7.2.686 [id number] [facility] 2022-12-15 11:01:13 2022-12-15 11:01:13 Outpatient SFA S[facility] [id number] Topher Brown 2022-11-22 09:38:21 2022-11-22 09:38:21 Outpatient SFA SFA [id number] Topher Brown 2022-10-29 11:55:18 2022-10-29 11:55:18 Outpatient SFA SFA [id number] Topher Brown 2022-09-20 11:29:50 2022-09-20 11:29:50 Outpatient SFA SFA [id number] Topher Brown 2022-09-06 09:11:25 2022-09-06 09:11:25 Outpatient SFA SFA [id number] Topher Brown 2022-08-04 11:25:19 2022-08-04 11:25:19 Outpatient SFA SFA [id number] Topher Brown 2022-08-02 10:00:01 2022-08-02 10:00:01 Outpatient SFA SFA [id number] Topher Brown 2022-06-08 08:47:43 2022-06-08 08:47:43 Outpatient SFA S[facility] [id number] Topehr Brown 2022-03-09 00:00:00 2022-03-09 00:00:00 Outpatient Visit oxkfge1e- [id number] -[id number] pixhtn5k-o 8w7-5w62-0 [id number] 2022-02-26 00:00:00 2022-02-26 00:00:00 Outpatient Visit [id number]- 90cc-47d8 -p143-8a3 [id number] [id number]-2 0cc-47d8-a 672-1e2f91 f3c7bb 2022-02-24 00:00:00 2022-02-24 00:00:00 Outpatient Visit [id number]- 6k3b-8053 -2am3-ihw [id number] a8i110y4-3 w7g-1843-9 cc7-ddc9dc c259c0 2022-02-21 00:00:00 2022-02-21 00:00:00 Outpatient Visit [id number] 9l71-44he -969d-682 7dxy821fo [id number] n82-12bu-4 69d-6821fb b530cd 2022-02-01 00:00:00 2022-02-01 00:00:00 Outpatient Visit [id number] e0d8-7288 -tm56-m46 [id number]-h 4x0-0634-z d08-k770f3 65m852 2022-01-18 00:00:00 2022-01-18 00:00:00 Outpatient Visit [id number] t6u2-4wrx -n3zl-7oh [id number]-l 7n0-0ebe-v 6ff-9bf9a9 h22710 2022-01-04 00:00:00 2022-01-04 00:00:00 Outpatient Visit [id number] q1qw-0512 -1b82-l92 [id number]-[id number] 4ac-4798-8 t17-q97050 v6l762 2022-01-01 00:00:00 2022-01-01 00:00:00 Outpatient Visit [id number]- [id number] -v15i-1d0 [id number]-7 461-4f39-b 85d-2b48ce 87772y 2021-12-17 20:30:00 2021-12-17 22:01:00 Emergency X LINK GUILLEN [facility] ERT [id number] [facility] 2021-12-17 20:30:00 2021-12-17 22:01:00 Emergency Link Guillen [facility] 1.840.114 350.1.13.10 4.2.7.2.686 [id number] [facility] 2021-05-10 00:00:00 2021-05-10 00:00:00 Telephone Ann Valdez [facility] 1..114 350.1.13.10 4.2.7.2.686 [id number] [facility] 2021-05-06 00:00:00 2021-05-06 00:00:00 Letter (Out) Bebo Méndez [facility] 1.84.114 350.1.13.10 4.2.7.2.686 [id number] [facility] 2021-04-30 13:45:00 2021-04-30 16:24:53 Outpatient MELODY SANZ [facility] [id number] [facility] 2021-04-30 14:15:00 2021-04-30 15:28:42 Outpatient MELODY SANZ [facility] [id number] [facility] 2021-04-30 14:15:00 2021-04-30 15:28:42 Outpatient MELODY SANZ [facility] [id number] [facility] 2021-04-30 13:40:52 2021-04-30 15:28:42 Office Visit Pgy3 Melody Raymond [facility] 1.84.114 350.1.13.10 4.2.7.2.686 [id number] [facility] 2021-04-30 13:45:00 2021-04-30 13:45:00 Outpatient R [facility] [id number] [facility] 2021-04-30 00:00:00 2021-04-30 00:00:00 Orders Only Doctor Unassigned, [place] [facility] 1.2840.114 350.1.13.10 4.2.7.2.686 [id number] [facility] 2021-04-27 10:00:00 2021-04-27 10:00:00 Outpatient R [facility] [id number] [facility] 2021-03-16 00:00:00 2021-03-16 00:00:00 Case Management Merly Osorio 1.2840.114 350.1.13.10 4.2.7.2.686 [id number] [facility] 2021-02-18 00:00:00 2021-02-18 00:00:00 Orders Only Doctor Unassigned, [place] [facility] 1.2840.114 350.1.13.10 4.2.7.2.686 [id number] [id number] [facility] 2020-09-02 14:59:17 2020-09-02 15:41:44 Office Visit Pool, [facility] Resident Dot Salas [facility] 1..114 350.1.13.10 4.2.7.2.686 [id number] [facility] 2020-09-02 15:15:00 2020-09-02 15:15:00 Outpatient R [facility] [id number] [facility] 2020-08-26 00:00:00 2020-08-26 00:00:00 Telephone Pool, [facility] Resident [facility] 1..114 350.1.13.10 4.2.7.2.686 [id number] [facility] 2020-08-14 00:00:00 2020-08-14 00:00:00 Telephone José MiguelAnn [facility] 1.2.840.114 350.1.13.10 4.2.7.2.686 [id number] [facility] 2020-08-12 05:40:00 2020-08-12 10:58:00 Hospital Encounter Melody Raymond [facility] 1.2.840.114 350.1.13.10 4.2.7.2.686 [id number] [facility] 2020-08-10 09:30:00 2020-08-10 09:30:00 Outpatient MELODY SANZ [facility] [id number] [facility] 2020-08-04 00:00:00 2020-08-04 00:00:00 Telephone Arsenio Jessica [facility] 1.2840.114 350.1.13.10 4.2.7.2.686 [id number] [facility] 2020-07-07 14:18:18 2020-07-07 14:51:08 Office Visit Shai [facility] Resident Melody Raymond [facility] 1.20.114 350.1.13.10 4.2.7.2.686 [id number] [facility] 2020-07-07 14:00:00 2020-07-07 14:51:08 Outpatient MELODY SANZ [facility] [id number] [facility] 2020-07-07 14:00:00 2020-07-07 14:51:08 Outpatient MELODY SANZ [facility] [id number] [facility] 2020-07-07 00:00:00 2020-07-07 00:00:00 Prep For Surgery Shefali Mendoza [facility] 1.2840.114 350.1.13.10 4.2.7.2.686 [id number] [facility] 2020-05-21 14:30:54 2020-05-21 16:10:41 Telemedici ne Visit Shai, [facility] Resident Dot Salas [facility] 1.2840.114 350.1.13.10 4.2.7.2.686 [id number] [facility] 2020-05-21 13:30:00 2020-05-21 13:30:00 Outpatient R [facility] [id number] [facility] 2020-05-18 00:00:00 2020-05-18 00:00:00 Telephone Ermias [facility] 1.2840.114 350.1.13.10 4.2.7.2.686 [id number] [facility] 2020-05-13 00:00:00 2020-05-13 00:00:00 Telephone Ermias [facility] 1.20.114 350.1.13.10 4.2.7.2.686 [id number] [facility] 2020-05-06 13:46:48 2020-05-06 16:23:37 Office Visit Valery Lockwood 4, [facility] 1.20.114 350.1.13.10 4.2.7.2.686 [id number] [facility] 2020-05-06 14:00:00 2020-05-06 14:00:00 Outpatient R VALERY LOCKWOOD [facility] [id number] [facility] 2020-04-06 00:00:00 2020-04-06 00:00:00 Telephone Kylie Moore [facility] 1.2.114 350.1.13.10 4.2.7.2.686 [id number] [facility] 2020-03-06 13:13:02 2020-03-06 14:29:41 Office Visit [facility] Resident Dot Salas [facility] 1.2840.114 350.1.13.10 4.2.7.2.686 [id number] [facility] 2020-03-06 13:15:00 2020-03-06 13:15:00 Outpatient R [facility] [id number] [facility] 2020-02-28 13:00:00 2020-02-28 13:00:00 Outpatient R [facility] [id number] [facility] 2020-02-20 00:00:00 2020-02-20 00:00:00 Telephone Gerson Mcdonnell [facility] 1.2.840.114 350.1.13.10 4.2.7.2.686 [id number] [facility] 2020-02-20 00:00:00 2020-02-20 00:00:00 Telephone Kylie Moore [facility] 1.20.114 350.1.13.10 4.2.7.2.686 [id number] [facility] 2020-02-14 13:09:37 2020-02-14 14:37:53 Office Visit [facility] Resident Gerson Mcdonnell [facility] 1.20.114 350.1.13.10 4.2.7.2.686 [id number] [facility] 2020-02-14 13:30:00 2020-02-14 13:30:00 Outpatient R [facility] [id number] [facility] 2020-02-14 00:00:00 2020-02-14 00:00:00 Orders Only Doctor Unassigned, [place] [facility] 1.2.840.114 350.1.13.10 4.2.7.2.686 [id number] [facility] 2020-02-14 00:00:00 2020-02-14 00:00:00 Telephone Kylie Moore [facility] 1..114 350.1.13.10 4.2.7.2.686 [id number] [facility] 2020-01-30 13:40:20 2020-01-30 14:41:12 Office Visit Kylie Moore Jennifer [facility] 1.840.114 350.1.13.10 4.2.7.2.686 [id number] [facility] 2020-01-30 13:45:00 2020-01-30 13:45:00 Outpatient R KYLIE MOORE [facility] [id number] [facility] 2019-08-07 11:00:00 2019-08-07 11:00:00 Appointmandeep whelan; EARL HARVEY M.D. LI-YUNG HING, ANDREW, M.D. [facility] [id number] [place] [facility] Results Test Description Test Time Test Comments Results Result Co mments Source COMPREHENSIVE METABOLIC [id number] 05:01:00* Test Item Value Reference Range Interpretation Comme nts GLUCOSE (test code = 2217) 70 MG/DL 70-99 BUN (test code = 2208) 5 MG/DL 8-23 L CREATININE (test code = 2214) 0.65 MG/DL 0.60-1.30 eGFR (2020 CKD-EPI) (test co de = 28853) 95 ML/MIN/1.73 >60 CALC BUN/CREAT (test code = 2235) 8 RATIO 6-28 SODIUM (test code = 2231) 142 MEQ/L 133-146 POTASSIUM (test code = 2228) 4.1 MEQ/L 3.5-5.4 CHLORIDE (test code = 2215) 102 MEQ/L 95-107 CARBON DIOXIDE (test code = 2206) 22 MEQ/L 19-31 CALCIUM (test code = 2209) 9.2 MG/DL 8.5-10.5 PROTEIN, TOTAL (test code = 222) 7.1 G/DL 6.1-8.3 ALBUMIN (test code = 2201) 4.5 G/DL 3.5-5.2 CALC GLOBULIN (test code = 2240) 2.6 G/DL 1.9-3.7 CALC A/G RATIO (test code = 2234) 1.7 RATIO 1.0-2.6 BILIRUBIN, TOTAL (test code = 2207) 0.4 MG/DL <=1.2 ALKALINE PHOSPHATASE (test code = 2204) 91 U/L 40-142 AST (test code = 2218) 10 U/L 9-40 ALT (test code = 2219) 8 U/L 5-40 LIPID [id number] 05:01:00* Test Item Value Reference Range Interpretation Comme nts CHOLESTEROL (test code = 2210) 135 MG/DL <200 TRIGLYCERIDES (test code = 2232) 141 MG/DL <150 HDL CHOLESTEROL (test code = 2220) 38 MG/DL >39 L CALC LDL CHOL (test code = 2237) 75 MG/DL <100 NOTE: CALCULATED LDL IS BASED ON NURA-COWART METHOD WHICHINCLUDES ADJUSTABLE TRIGLYCERIDE:VLDL CHOLESTEROL RATIO.THIS FACTOR VARIES BY MEASURED TRIGLYCERIDE AND NON-HDLCHOLESTEROL CONCENTRATIONS WITH INCREASED CALCULATED LDL SEENIN HIGHER TRIGLYCERIDE OR LOWER NON-HDL SPECIMENS. FOR MOREINFORMATION, SEE CLIENT ANNOUNCEMENT AT [email or web address] RISK RATIO LDL/HDL (test code = 2238) 1.97 RATIO <3.22 HEMOGLOBIN [id number] 04:16:18* Test Item Value Reference Range Interpretation Comme nts HEMOGLOBIN A1c (test code = 91211) 5.9 % 4.2-5.6 H [employer] [employer] GUIDELINES FOR HGB A1C: PREDIABETES/INCREASED RISK . . . . . . . 5.7-6.4% DIAGNOSIS OF DIABETES . . . . . . . . . >=6.5% WITH CONFIRMATION OR APPROPRIATE SYMPTOMS NOTE: ASSAY MAY BE AFFECTED BY HEMOGLOBINOPATHIES (SICKLE CELL ANEMIA, S-C DISEASE, OTHERS) OR ARTIFICIALLY LOWERED BY DECREASED RED CELL SURVIVAL (HEMOLYTIC ANEMIAS, BLOOD LOSS, ETC.). CONSIDER ALTERNATE TESTING OR LABORATORY CONSULTATION. UNLESS OTHERWISE INDICATED, ALL TESTING PERFORMED AT [facility] [address] [place] [address] MONUMENT INSTALLER: ANDREA KEYES M.D. CLIA NUMBER [id number] [facility] [place]. [id number] COMPREHENSIVE METABOLIC [id number] 00:00:00* Test Item Value Reference Range Interpretation Comme nts GLUCOSE (test code = 2217) 70 MG/DL BUN (test code = 2208) 5 MG/DL CREATININE (test code = 2214) 0.65 MG/DL eGFR (2020 CKD-EPI) (test co de = 78479) 95 ML/MIN/1.73 CALC BUN/CREAT (test code = 2235) 8 RATIO SODIUM (test code = 2231) 142 MEQ/L POTASSIUM (test code = 2228) 4.1 MEQ/L CHLORIDE (test code = 2215) 102 MEQ/L CARBON DIOXIDE (test code = 2206) 22 MEQ/L CALCIUM (test code = 2209) 9.2 MG/DL PROTEIN, TOTAL (test code = 222) 7.1 G/DL ALBUMIN (test code = 220) 4.5 G/DL CALC GLOBULIN (test code = 2240) 2.6 G/DL CALC A/G RATIO (test code = 2234) 1.7 RATIO BILIRUBIN, TOTAL (test code = 2207) 0.4 MG/DL ALKALINE PHOSPHATASE (test code = 2204) 91 U/L AST (test code = 2218) 10 U/L ALT (test code = 2219) 8 U/L Topher Tutu KevinALBUMIN/CREATININE RATIO, RANDOM [id number] 00:00:00* Test Item Value Reference Range Interpretation Comme nts CREATININE, URINE, CONC. (te st code = 2072) 102.5 MG/DL ALBUMIN, URINE, RANDOM (test code = 93647) 0.5 MG/DL CALC ALBUMIN/CREAT, RND (ortiz t code = 09738) 5 MG/G Topher Tutu KevinLIPID [id number] 00:00:00* Test Item Value Reference Range Interpretation Comme nts CHOLESTEROL (test code = 2210) 135 MG/DL TRIGLYCERIDES (test code = 2232) 141 MG/DL HDL CHOLESTEROL (test code = 2220) 38 MG/DL CALC LDL CHOL (test code = 2237) 75 MG/DL RISK RATIO LDL/HDL (test cod e = 2238) 1.97 RATIO Topher Tutu KevinHEMOGLOBIN [id number] 00:00:00* Test Item Value Reference Range Interpretation Comme nts HEMOGLOBIN A1c (test code = 81665) 5.9 % Topher BrownVITAMIN D, 25 [id number] 06:23:35* Test Item Value Reference Range Interpretation Comme nts VITAMIN D, 25 OH (test code = 4958) 99 NG/ML SEE BELOW NOTE: 25-HYDR OXYVITAMIN D ASSAY INCLUDES 25-HYDROXYVITAMIN D2 AND D3. INTERPRETIVE RANGES PEDIATRIC (<17 YEARS) . . . . . . . . . . . NG/ML 20-100ADULT: INSUFFICIENT . . . . . . . . . . . . . . NG/ML <20 SUBOPTIMAL . . . . . . . . . . . . . . . NG/ML 20-29 OPTIMAL . . . . . . . . . . . . . . . . . NG/ML 30-100 HIV 1/2 4TH GEN, RFLX [id number] 03:35:57* Test Item Value Reference Range Interpretation Comme nts HIV 1/2 4TH GEN, RFLX CONF (test code = 3514) NON-REACTIVE NON-REACTIVE UNLESS OTHERWISE INDICATED, ALL TESTING PERFORMED AT [facility] [address] [place] [address] MONUMENT INSTALLER: ANDREA KEYES M.D. CLIA NUMBER [id number] [facility] [place]. [id number] VITAMIN D, 25 [id number] 00:00:00* Test Item Value Reference Range Interpretation Comme nts VITAMIN D, 25 OH (test code = 4958) 99 NG/ML Topher BrownHIV 1/2 4TH GEN, RFLX [id number] 00:00:00* Test Item Value Reference Range Interpretation Comme nts HIV 1/2 4TH GEN, RFLX CONF ( test code = 3514) NON-REACTIVE Topher BrownVITAMIN D, 25 [id number] 00:00:00* Test Item Value Reference Range Interpretation Comme nts VITAMIN D, 25 OH (test code = 4958) 99 NG/ML Topher BrownHIV 1/2 4TH GEN, RFLX [id number] 00:00:00* Test Item Value Reference Range Interpretation Comme nts HIV 1/2 4TH GEN, RFLX CONF ( test code = 3514) NON-REACTIVE Topher BrownVITAMIN D, 25 [id number] 00:00:00* Test Item Value Reference Range Interpretation Comme nts VITAMIN D, 25 OH (test code = 4958) 99 NG/ML Topher Cam AustinHIV 1/2 4TH GEN, RFLX [id number] 00:00:00* Test Item Value Reference Range Interpretation Comme nts HIV 1/2 4TH GEN, RFLX CONF ( test code = 3514) NON-REACTIVE Topher F AustinVITAMIN D, 25 [id number] 00:00:00* Test Item Value Reference Range Interpretation Comme nts VITAMIN D, 25 OH (test code = 4958) 99 NG/ML [facility] AustinHIV 1/2 4TH GEN, RFLX [id number] 00:00:00* Test Item Value Reference Range Interpretation Comme nts HIV 1/2 4TH GEN, RFLX CONF ( test code = 3514) NON-REACTIVE [facility] F AustinVITAMIN D, 25 [id number] 00:00:00* Test Item Value Reference Range Interpretation Comme nts VITAMIN D, 25 OH (test code = 4958) 99 NG/ML [facility] AustinHIV 1/2 4TH GEN, RFLX [id number] 00:00:00* Test Item Value Reference Range Interpretation Comme nts HIV 1/2 4TH GEN, RFLX CONF ( test code = 3514) NON-REACTIVE Top[facility] F AustinVITAMIN D, 25 [id number] 00:00:00* Test Item Value Reference Range Interpretation Comme nts VITAMIN D, 25 OH (test code = 4958) 99 NG/ML [facility] AustinHIV 1/2 4TH GEN, RFLX [id number] 00:00:00* Test Item Value Reference Range Interpretation Comme nts HIV 1/2 4TH GEN, RFLX CONF ( test code = 3514) NON-REACTIVE [facility] F AustinVITAMIN D, 25 [id number] 00:00:00* Test Item Value Reference Range Interpretation Comme nts VITAMIN D, 25 OH (test code = 4958) 99 NG/ML [facility] [place] AustinHIV 1/2 4TH GEN, RFLX [id number] 00:00:00* Test Item Value Reference Range Interpretation Comme nts HIV 1/2 4TH GEN, RFLX CONF ( test code = 3514) NON-REACTIVE [facility] F AustinHEMOGLOBIN [id number] 04:52:12* Test Item Value Reference Range Interpretation Comme nts HEMOGLOBIN A1c (test code = 39156) 6.2 % 4.2-5.6 H [employer] [employer] GUIDELINES FOR HGB A1C: PREDIABETES/INCREASED RISK . . . . . . . 5.7-6.4% DIAGNOSIS OF DIABETES . . . . . . . . . >=6.5% WITH CONFIRMATION OR APPROPRIATE SYMPTOMS NOTE: ASSAY MAY BE AFFECTED BY HEMOGLOBINOPATHIES (SICKLE CELL ANEMIA, S-C DISEASE, OTHERS) OR ARTIFICIALLY LOWERED BY DECREASED RED CELL SURVIVAL (HEMOLYTIC ANEMIAS, BLOOD LOSS, ETC.). CONSIDER ALTERNATE TESTING OR LABORATORY CONSULTATION. UNLESS OTHERWISE INDICATED, ALL TESTING PERFORMED AT [facility] [address] [place] [address] MONUMENT INSTALLER: ANDREA KEYES M.D. [place] NUMBER [id number] [facility] [place]. [id number] HEMOGLOBIN [id number] 00:00:00* Test Item Value Reference Range Interpretation Comme [facility] HEMOGLOBIN A1c (test code = 76846) 6.2 % [facility] Cam AustinHEMOGLOBIN [id number] 00:00:00* Test Item Value Reference Range Interpretation Comme [facility] HEMOGLOBIN A1c (test code = 88480) 6.2 % [facility] Cam AustinHEMOGLOBIN [id number] 00:00:00* Test Item Value Reference Range Interpretation Comme [facility] HEMOGLOBIN A1c (test code = 90560) 6.2 % Top[facility] F AustinHEMOGLOBIN [id number] 00:00:00* Test Item Value Reference Range Interpretation Comme [facility] HEMOGLOBIN A1c (test code = 22225) 6.2 % [facility] F AustinHEMOGLOBIN [id number] 00:00:00* Test Item Value Reference Range Interpretation Comme nts HEMOGLOBIN A1c (test code = 31839) 6.2 % [facility]her [place] AustinHEMOGLOBIN [id number] 00:00:00* Test Item Value Reference Range Interpretation Comme nts HEMOGLOBIN A1c (test code = 00025) 6.2 % [facility] Cam AustinHEMOGLOBIN [id number] 00:00:00* Test Item Value Reference Range Interpretation Comme [facility] HEMOGLOBIN A1c (test code = 01242) 6.2 % Topher Cam AustinTSH RFLX FT4 AND [id number] 21:47:36* Test Item Value Reference Range Interpretation Comme nts TSH RFLX FT4 AND FT3 (test c ode = 67608) 2.370 UIU/ML 0.400-4.100 COMPREHENSIVE METABOLIC [id number] 21:47:30* Test Item Value Reference Range Interpretation Comme nts GLUCOSE (test code = 2216) 90 MG/DL 70-99 BUN (test code = 2207) 9 MG/DL 8-23 CREATININE (test code = 221) 0.90 MG/DL 0.60-1.30 eGFR (2020 CKD-EPI) (test co de = 87597) 69 ML/MIN/1.73 >60 CALC BUN/CREAT (test code = 2235) 10 RATIO 6-28 SODIUM (test code = 223) 141 MEQ/L 133-146 POTASSIUM (test code = 222) 3.6 MEQ/L 3.5-5.4 CHLORIDE (test code = 221) 103 MEQ/L 95-107 CARBON DIOXIDE (test code = 2206) 26 MEQ/L 19-31 CALCIUM (test code = 220) 9.6 MG/DL 8.5-10.5 PROTEIN, TOTAL (test code = 222) 7.1 G/DL 6.1-8.3 ALBUMIN (test code = 2201) 4.5 G/DL 3.5-5.2 CALC GLOBULIN (test code = 2240) 2.6 G/DL 1.9-3.7 CALC A/G RATIO (test code = 2234) 1.7 RATIO 1.0-2.6 BILIRUBIN, TOTAL (test code = 2206) 0.3 MG/DL <=1.2 ALKALINE PHOSPHATASE (test code = 2203) 93 U/L 40-142 AST (test code = 2218) 9 U/L 9-40 ALT (test code = 2219) 7 U/L 5-40 LIPID [id number] 21:47:30* Test Item Value Reference Range Interpretation Comme nts CHOLESTEROL (test code = 2210) 149 MG/DL <200 TRIGLYCERIDES (test code = 2232) 193 MG/DL <150 H HDL CHOLESTEROL (test code = 2220) 35 MG/DL >39 L CALC LDL CHOL (test code = 223) 85 MG/DL <100 NOTE: CALCULATED LDL IS BASED ON NURA-COWART METHOD WHICHINCLUDES ADJUSTABLE TRIGLYCERIDE:VLDL CHOLESTEROL RATIO.THIS FACTOR VARIES BY MEASURED TRIGLYCERIDE AND NON-HDLCHOLESTEROL CONCENTRATIONS WITH INCREASED CALCULATED LDL SEENIN HIGHER TRIGLYCERIDE OR LOWER NON-HDL SPECIMENS. FOR MOREINFORMATION, SEE CLIENT ANNOUNCEMENT AT [email or web address] RISK RATIO LDL/HDL (test code = 2238) 2.43 RATIO <3.22 HEMOGLOBIN [id number] 02:10:30* Test Item Value Reference Range Interpretation Comme nts HEMOGLOBIN A1c (test code = 79880) 6.1 % 4.2-5.6 H [employer] GUIDELINES FOR HGB A1C: PREDIABETES/INCREASED RISK . . . . . . . 5.7-6.4% DIAGNOSIS OF DIABETES . . . . . . . . . >=6.5% WITH CONFIRMATION OR APPROPRIATE SYMPTOMS NOTE: ASSAY MAY BE AFFECTED BY HEMOGLOBINOPATHIES (SICKLE CELL ANEMIA, S-C DISEASE, OTHERS) OR ARTIFICIALLY LOWERED BY DECREASED RED CELL SURVIVAL (HEMOLYTIC ANEMIAS, BLOOD LOSS, ETC.). CONSIDER ALTERNATE TESTING OR LABORATORY CONSULTATION. CBC W/AUTO DIFF WITH [id number] 01:34:11* Test Item Value Reference Range Interpretation Comme nts WBC (test code = 1001) 7.8 K/UL 3.5-11.0 RBC (test code = 1002) 5.07 M/UL 3.80-5.40 HEMOGLOBIN (test code = 1003) 13.8 G/DL 11.5-15.5 HEMATOCRIT (test code = 1004) 41.6 % 34.0-45.0 MCV (test code = 1005) 82.1 fL 80.0-99.0 MCH (test code = 1006) 27.2 PG 25.0-33.0 MCHC (test code = 1007) 33.2 G/DL 31.0-36.0 RDW (test code = 1038) 13.6 % 11.5-15.0 NEUTROPHILS (test code = 1008) 36.8 % LYMPHOCYTES (test code = 1010) 51.2 % MONOCYTES (test code = 1011) 7.6 % EOSINOPHILS (test code = 1012) 3.7 % BASOPHILS (test code = 1013) 0.6 % IMMATURE GRANULOCYTES (test code = 1036) 0.1 % NUCLEATED RBCS (test code = 1065) 0.0 /100 WBC'S See_Comment [Automated message] The system which generated this result transmitted reference range: 0.0. The reference range was not used to interpret this result as normal/abnormal. PLATELET COUNT (test code = 1015) 391 K/UL 130-400 ABSOLUTE NEUTROPHILS (test code = 1066) 2.85 K/UL 1.50-7.50 ABSOLUTE LYMPHOCYTES (test code = 1067) 3.98 K/UL 1.00-4.00 ABSOLUTE MONOCYTES (test code = 1068) 0.59 K/UL 0.20-1.00 ABSOLUTE EOSINOPHILS (test code = 1040) 0.29 K/UL 0.00-0.50 ABSOLUTE BASOPHILS (test code = 1069) 0.05 K/UL 0.00-0.20 ABS IMMATURE GRANULOCYTES (test code = 1020) 0.01 K/UL 0.00-0.10 ABS NUCLEATED RBCS (test code = 90584) 0.00 K/UL 0.00-0.11 UNLESS OTHER MAYES INDICATED, ALL TESTING PERFORMED AT [facility] [address] [place] [address] MONUMENT INSTALLER: ANDREA KEYES M.D. CLIA NUMBER [id number] [facility] [place]. [id number] CBC W/AUTO [id number] 00:00:00* Test Item Value Reference Range Interpretation Comme nts WBC (test code = 1001) 7.8 K/UL RBC (test code = 1002) 5.07 M/UL HEMOGLOBIN (test code = 1003) 13.8 G/DL HEMATOCRIT (test code = 1004) 41.6 % MCV (test code = 1005) 82.1 fL MCH (test code = 1006) 27.2 PG MCHC (test code = 1007) 33.2 G/DL RDW (test code = 1038) 13.6 % NEUTROPHILS (test code = 1008) 36.8 % LYMPHOCYTES (test code = 1010) 51.2 % MONOCYTES (test code = 1011) 7.6 % EOSINOPHILS (test code = 1012) 3.7 % BASOPHILS (test code = 1013) 0.6 % IMMATURE GRANULOCYTES (test code = 1036) 0.1 % NUCLEATED RBCS (test code = 1065) 0.0 /100WBC'S PLATELET COUNT (test code = 1015) 391 K/UL ABSOLUTE NEUTROPHILS (test c ode = 1066) 2.85 K/UL ABSOLUTE LYMPHOCYTES (test c ode = 1067) 3.98 K/UL ABSOLUTE MONOCYTES (test cod e = 1068) 0.59 K/UL ABSOLUTE EOSINOPHILS (test c ode = 1040) 0.29 K/UL ABSOLUTE BASOPHILS (test cod e = 1069) 0.05 K/UL ABS IMMATURE GRANULOCYTES (t est code = 1020) 0.01 K/UL ABS NUCLEATED RBCS (test cod e = 49912) 0.00 K/UL Topher Olsen RFLX FT4 AND [id number] 00:00:00* Test Item Value Reference Range Interpretation Comme nts TSH RFLX FT4 AND FT3 (test c ode = 69758) 2.370 UIU/ML Topher BrownCOMPREHENSIVE METABOLIC [id number] 00:00:00* Test Item Value Reference Range Interpretation Comme nts GLUCOSE (test code = 2217) 90 MG/DL BUN (test code = 2208) 9 MG/DL CREATININE (test code = 2214) 0.90 MG/DL eGFR (2020 CKD-EPI) (test co de = 11313) 69 ML/MIN/1.73 CALC BUN/CREAT (test code = 2235) 10 RATIO SODIUM (test code = 2231) 141 MEQ/L POTASSIUM (test code = 2228) 3.6 MEQ/L CHLORIDE (test code = 2215) 103 MEQ/L CARBON DIOXIDE (test code = 2206) 26 MEQ/L CALCIUM (test code = 2209) 9.6 MG/DL PROTEIN, TOTAL (test code = 2229) 7.1 G/DL ALBUMIN (test code = 2201) 4.5 G/DL CALC GLOBULIN (test code = 2240) 2.6 G/DL CALC A/G RATIO (test code = 2234) 1.7 RATIO BILIRUBIN, TOTAL (test code = 2207) 0.3 MG/DL ALKALINE PHOSPHATASE (test code = 2204) 93 U/L AST (test code = 2218) 9 U/L ALT (test code = 2219) 7 U/L Topher BrownLIPID [id number] 00:00:00* Test Item Value Reference Range Interpretation Comme nts CHOLESTEROL (test code = 2210) 149 MG/DL TRIGLYCERIDES (test code = 2232) 193 MG/DL HDL CHOLESTEROL (test code = 2220) 35 MG/DL CALC LDL CHOL (test code = 2237) 85 MG/DL RISK RATIO LDL/HDL (test cod e = 2238) 2.43 RATIO Topher BrownHEMOGLOBIN [id number] 00:00:00* Test Item Value Reference Range Interpretation Comme nts HEMOGLOBIN A1c (test code = 26895) 6.1 % Topher BrownCBC W/AUTO [id number] 00:00:00* Test Item Value Reference Range Interpretation Comme nts WBC (test code = 1001) 7.8 K/UL RBC (test code = 1002) 5.07 M/UL HEMOGLOBIN (test code = 1003) 13.8 G/DL HEMATOCRIT (test code = 1004) 41.6 % MCV (test code = 1005) 82.1 fL MCH (test code = 1006) 27.2 PG MCHC (test code = 1007) 33.2 G/DL RDW (test code = 1038) 13.6 % NEUTROPHILS (test code = 1008) 36.8 % LYMPHOCYTES (test code = 1010) 51.2 % MONOCYTES (test code = 1011) 7.6 % EOSINOPHILS (test code = 1012) 3.7 % BASOPHILS (test code = 1013) 0.6 % IMMATURE GRANULOCYTES (test code = 1036) 0.1 % NUCLEATED RBCS (test code = 1065) 0.0 /100WBC'S PLATELET COUNT (test code = 1015) 391 K/UL ABSOLUTE NEUTROPHILS (test c ode = 1066) 2.85 K/UL ABSOLUTE LYMPHOCYTES (test c ode = 1067) 3.98 K/UL ABSOLUTE MONOCYTES (test cod e = 1068) 0.59 K/UL ABSOLUTE EOSINOPHILS (test c ode = 1040) 0.29 K/UL ABSOLUTE BASOPHILS (test cod e = 1069) 0.05 K/UL ABS IMMATURE GRANULOCYTES (t est code = 1020) 0.01 K/UL ABS NUCLEATED RBCS (test cod e = 57432) 0.00 K/UL [facility] R[facility] FT[facility] AND [id number] 00:00:00* Test Item Value Reference Range Interpretation Comme nts TSH RFLX FT4 AND FT3 (test c ode = 69249) 2.370 UIU/ML [facility] BrownLOC[facility] RFLX FT4 AND [id number] 00:00:00* Test Item Value Reference Range Interpretation Comme nts TSH RFLX FT4 AND FT3 (test c ode = 29294) 2.370 UIU/ML Topher BrownCOMPREHENSIVE METABOLIC [id number] 00:00:00* Test Item Value Reference Range Interpretation Comme nts GLUCOSE (test code = 2217) 90 MG/DL BUN (test code = 2208) 9 MG/DL CREATININE (test code = 2214) 0.90 MG/DL eGFR (2020 CKD-EPI) (test co de = 30972) 69 ML/MIN/1.73 CALC BUN/CREAT (test code = 2235) 10 RATIO SODIUM (test code = 2231) 141 MEQ/L POTASSIUM (test code = 2228) 3.6 MEQ/L CHLORIDE (test code = 2215) 103 MEQ/L CARBON DIOXIDE (test code = 2206) 26 MEQ/L CALCIUM (test code = 2209) 9.6 MG/DL PROTEIN, TOTAL (test code = 2229) 7.1 G/DL ALBUMIN (test code = 2201) 4.5 G/DL CALC GLOBULIN (test code = 2240) 2.6 G/DL CALC A/G RATIO (test code = 2234) 1.7 RATIO BILIRUBIN, TOTAL (test code = 2207) 0.3 MG/DL ALKALINE PHOSPHATASE (test code = 2204) 93 U/L AST (test code = 2218) 9 U/L ALT (test code = 2219) 7 U/L Topher Cam AustinLIPID [id number] 00:00:00* Test Item Value Reference Range Interpretation Comme nts CHOLESTEROL (test code = 2210) 149 MG/DL TRIGLYCERIDES (test code = 2232) 193 MG/DL HDL CHOLESTEROL (test code = 2220) 35 MG/DL CALC LDL CHOL (test code = 2237) 85 MG/DL RISK RATIO LDL/HDL (test cod e = 2238) 2.43 RATIO Topher BrownCOMPREHENSIVE METABOLIC [id number] 00:00:00* Test Item Value Reference Range Interpretation Comme nts GLUCOSE (test code = 2217) 90 MG/DL BUN (test code = 2208) 9 MG/DL CREATININE (test code = 2214) 0.90 MG/DL eGFR (2020 CKD-EPI) (test co de = 55055) 69 ML/MIN/1.73 CALC BUN/CREAT (test code = 2235) 10 RATIO SODIUM (test code = 2231) 141 MEQ/L POTASSIUM (test code = 2228) 3.6 MEQ/L CHLORIDE (test code = 2215) 103 MEQ/L CARBON DIOXIDE (test code = 2206) 26 MEQ/L CALCIUM (test code = 2209) 9.6 MG/DL PROTEIN, TOTAL (test code = 2229) 7.1 G/DL ALBUMIN (test code = 2201) 4.5 G/DL CALC GLOBULIN (test code = 2240) 2.6 G/DL CALC A/G RATIO (test code = 2234) 1.7 RATIO BILIRUBIN, TOTAL (test code = 2207) 0.3 MG/DL ALKALINE PHOSPHATASE (test code = 2204) 93 U/L AST (test code = 2218) 9 U/L ALT (test code = 2219) 7 U/L Topher BrownHEMOGLOBIN [id number] 00:00:00* Test Item Value Reference Range Interpretation Comme nts HEMOGLOBIN A1c (test code = 07568) 6.1 % Topher BrownCBC W/AUTO [id number] 00:00:00* Test Item Value Reference Range Interpretation Comme nts WBC (test code = 1001) 7.8 K/UL RBC (test code = 1002) 5.07 M/UL HEMOGLOBIN (test code = 1003) 13.8 G/DL HEMATOCRIT (test code = 1004) 41.6 % MCV (test code = 1005) 82.1 fL MCH (test code = 1006) 27.2 PG MCHC (test code = 1007) 33.2 G/DL RDW (test code = 1038) 13.6 % NEUTROPHILS (test code = 1008) 36.8 % LYMPHOCYTES (test code = 1010) 51.2 % MONOCYTES (test code = 1011) 7.6 % EOSINOPHILS (test code = 1012) 3.7 % BASOPHILS (test code = 1013) 0.6 % IMMATURE GRANULOCYTES (test code = 1036) 0.1 % NUCLEATED RBCS (test code = 1065) 0.0 /100WBC'S PLATELET COUNT (test code = 1015) 391 K/UL ABSOLUTE NEUTROPHILS (test c ode = 1066) 2.85 K/UL ABSOLUTE LYMPHOCYTES (test c ode = 1067) 3.98 K/UL ABSOLUTE MONOCYTES (test cod e = 1068) 0.59 K/UL ABSOLUTE EOSINOPHILS (test c ode = 1040) 0.29 K/UL ABSOLUTE BASOPHILS (test cod e = 1069) 0.05 K/UL ABS IMMATURE GRANULOCYTES (t est code = 1020) 0.01 K/UL ABS NUCLEATED RBCS (test cod e = 50091) 0.00 K/UL [facility] BrownLOC[facility] RFLX FT4 AND [id number] 00:00:00* Test Item Value Reference Range Interpretation Comme nts TSH RFLX FT4 AND FT3 (test c ode = 41130) 2.370 UIU/ML Topher BrownCOMPREHENSIVE METABOLIC [id number] 00:00:00* Test Item Value Reference Range Interpretation Comme nts GLUCOSE (test code = 2217) 90 MG/DL BUN (test code = 2208) 9 MG/DL CREATININE (test code = 2214) 0.90 MG/DL eGFR (2020 CKD-EPI) (test co de = 12197) 69 ML/MIN/1.73 CALC BUN/CREAT (test code = 2235) 10 RATIO SODIUM (test code = 2231) 141 MEQ/L POTASSIUM (test code = 2228) 3.6 MEQ/L CHLORIDE (test code = 2215) 103 MEQ/L CARBON DIOXIDE (test code = 2206) 26 MEQ/L CALCIUM (test code = 2209) 9.6 MG/DL PROTEIN, TOTAL (test code = 2229) 7.1 G/DL ALBUMIN (test code = 2201) 4.5 G/DL CALC GLOBULIN (test code = 2240) 2.6 G/DL CALC A/G RATIO (test code = 2234) 1.7 RATIO BILIRUBIN, TOTAL (test code = 2207) 0.3 MG/DL ALKALINE PHOSPHATASE (test code = 2204) 93 U/L AST (test code = 2218) 9 U/L ALT (test code = 2219) 7 U/L Topher BrownLIPID [id number] 00:00:00* Test Item Value Reference Range Interpretation Comme nts CHOLESTEROL (test code = 2210) 149 MG/DL TRIGLYCERIDES (test code = 2232) 193 MG/DL HDL CHOLESTEROL (test code = 2220) 35 MG/DL CALC LDL CHOL (test code = 2237) 85 MG/DL RISK RATIO LDL/HDL (test cod e = 2238) 2.43 RATIO Topher BrownHEMOGLOBIN [id number] 00:00:00* Test Item Value Reference Range Interpretation Comme kimberley HEMOGLOBIN A1c (test code = 60209) 6.1 % Topher BrownCBC W/AUTO [id number] 00:00:00* Test Item Value Reference Range Interpretation Comme nts WBC (test code = 1001) 7.8 K/UL RBC (test code = 1002) 5.07 M/UL HEMOGLOBIN (test code = 1003) 13.8 G/DL HEMATOCRIT (test code = 1004) 41.6 % MCV (test code = 1005) 82.1 fL MCH (test code = 1006) 27.2 PG MCHC (test code = 1007) 33.2 G/DL RDW (test code = 1038) 13.6 % NEUTROPHILS (test code = 1008) 36.8 % LYMPHOCYTES (test code = 1010) 51.2 % MONOCYTES (test code = 1011) 7.6 % EOSINOPHILS (test code = 1012) 3.7 % BASOPHILS (test code = 1013) 0.6 % IMMATURE GRANULOCYTES (test code = 1036) 0.1 % NUCLEATED RBCS (test code = 1065) 0.0 /100WBC'S PLATELET COUNT (test code = 1015) 391 K/UL ABSOLUTE NEUTROPHILS (test c ode = 1066) 2.85 K/UL ABSOLUTE LYMPHOCYTES (test c ode = 1067) 3.98 K/UL ABSOLUTE MONOCYTES (test cod e = 1068) 0.59 K/UL ABSOLUTE EOSINOPHILS (test c ode = 1040) 0.29 K/UL ABSOLUTE BASOPHILS (test cod e = 1069) 0.05 K/UL ABS IMMATURE GRANULOCYTES (t est code = 1020) 0.01 K/UL ABS NUCLEATED RBCS (test cod e = 58495) 0.00 K/UL [facility] BrownLOC[facility] RFLX FT[facility] AND [id number] 00:00:00* Test Item Value Reference Range Interpretation Comme nts TSH RFLX FT4 AND FT3 (test c ode = 72847) 2.370 UIU/ML Topher BrownCOMPREHENSIVE METABOLIC [id number] 00:00:00* Test Item Value Reference Range Interpretation Comme nts GLUCOSE (test code = 2217) 90 MG/DL BUN (test code = 2208) 9 MG/DL CREATININE (test code = 2214) 0.90 MG/DL eGFR (2020 CKD-EPI) (test co de = 77676) 69 ML/MIN/1.73 CALC BUN/CREAT (test code = 2235) 10 RATIO SODIUM (test code = 2231) 141 MEQ/L POTASSIUM (test code = 2228) 3.6 MEQ/L CHLORIDE (test code = 2215) 103 MEQ/L CARBON DIOXIDE (test code = 2206) 26 MEQ/L CALCIUM (test code = 2209) 9.6 MG/DL PROTEIN, TOTAL (test code = 2229) 7.1 G/DL ALBUMIN (test code = 2201) 4.5 G/DL CALC GLOBULIN (test code = 2240) 2.6 G/DL CALC A/G RATIO (test code = 2234) 1.7 RATIO BILIRUBIN, TOTAL (test code = 2207) 0.3 MG/DL ALKALINE PHOSPHATASE (test code = 2204) 93 U/L AST (test code = 2218) 9 U/L ALT (test code = 2219) 7 U/L Topher BrownLIPID [id number] 00:00:00* Test Item Value Reference Range Interpretation Comme nts CHOLESTEROL (test code = 2210) 149 MG/DL TRIGLYCERIDES (test code = 2232) 193 MG/DL HDL CHOLESTEROL (test code = 2220) 35 MG/DL CALC LDL CHOL (test code = 2237) 85 MG/DL RISK RATIO LDL/HDL (test cod e = 2238) 2.43 RATIO Topher Cam AustinLIPID [id number] 00:00:00* Test Item Value Reference Range Interpretation Comme nts CHOLESTEROL (test code = 2210) 149 MG/DL TRIGLYCERIDES (test code = 2232) 193 MG/DL HDL CHOLESTEROL (test code = 2220) 35 MG/DL CALC LDL CHOL (test code = 2237) 85 MG/DL RISK RATIO LDL/HDL (test cod e = 2238) 2.43 RATIO Topher Cam AustinHEMOGLOBIN [id number] 00:00:00* Test Item Value Reference Range Interpretation Comme nts HEMOGLOBIN A1c (test code = 04502) 6.1 % Topher Cam AustinCBC W/AUTO [id number] 00:00:00* Test Item Value Reference Range Interpretation Comme nts WBC (test code = 1001) 7.8 K/UL RBC (test code = 1002) 5.07 M/UL HEMOGLOBIN (test code = 1003) 13.8 G/DL HEMATOCRIT (test code = 1004) 41.6 % MCV (test code = 1005) 82.1 fL MCH (test code = 1006) 27.2 PG MCHC (test code = 1007) 33.2 G/DL RDW (test code = 1038) 13.6 % NEUTROPHILS (test code = 1008) 36.8 % LYMPHOCYTES (test code = 1010) 51.2 % MONOCYTES (test code = 1011) 7.6 % EOSINOPHILS (test code = 1012) 3.7 % BASOPHILS (test code = 1013) 0.6 % IMMATURE GRANULOCYTES (test code = 1036) 0.1 % NUCLEATED RBCS (test code = 1065) 0.0 /100WBC'S PLATELET COUNT (test code = 1015) 391 K/UL ABSOLUTE NEUTROPHILS (test c ode = 1066) 2.85 K/UL ABSOLUTE LYMPHOCYTES (test c ode = 1067) 3.98 K/UL ABSOLUTE MONOCYTES (test cod e = 1068) 0.59 K/UL ABSOLUTE EOSINOPHILS (test c ode = 1040) 0.29 K/UL ABSOLUTE BASOPHILS (test cod e = 1069) 0.05 K/UL ABS IMMATURE GRANULOCYTES (t est code = 1020) 0.01 K/UL ABS NUCLEATED RBCS (test cod e = 69369) 0.00 K/UL Topher Cam AustinHEMOGLOBIN [id number] 00:00:00* Test Item Value Reference Range Interpretation Comme nts HEMOGLOBIN A1c (test code = 87212) 6.1 % Topher Cam AustinCBC W/AUTO [id number] 00:00:00* Test Item Value Reference Range Interpretation Comme nts WBC (test code = 1001) 7.8 K/UL RBC (test code = 1002) 5.07 M/UL HEMOGLOBIN (test code = 1003) 13.8 G/DL HEMATOCRIT (test code = 1004) 41.6 % MCV (test code = 1005) 82.1 fL MCH (test code = 1006) 27.2 PG MCHC (test code = 1007) 33.2 G/DL RDW (test code = 1038) 13.6 % NEUTROPHILS (test code = 1008) 36.8 % LYMPHOCYTES (test code = 1010) 51.2 % MONOCYTES (test code = 1011) 7.6 % EOSINOPHILS (test code = 1012) 3.7 % BASOPHILS (test code = 1013) 0.6 % IMMATURE GRANULOCYTES (test code = 1036) 0.1 % NUCLEATED RBCS (test code = 1065) 0.0 /100WBC'S PLATELET COUNT (test code = 1015) 391 K/UL ABSOLUTE NEUTROPHILS (test c ode = 1066) 2.85 K/UL ABSOLUTE LYMPHOCYTES (test c ode = 1067) 3.98 K/UL ABSOLUTE MONOCYTES (test cod e = 1068) 0.59 K/UL ABSOLUTE EOSINOPHILS (test c ode = 1040) 0.29 K/UL ABSOLUTE BASOPHILS (test cod e = 1069) 0.05 K/UL ABS IMMATURE GRANULOCYTES (t est code = 1020) 0.01 K/UL ABS NUCLEATED RBCS (test cod e = 13733) 0.00 K/UL [facility] BrownLOC[facility] RFLX FT4 AND [id number] 00:00:00* Test Item Value Reference Range Interpretation Comme nts TSH RFLX FT4 AND FT3 (test c ode = 33865) 2.370 UIU/ML Topher BrownCOMPREHENSIVE METABOLIC [id number] 00:00:00* Test Item Value Reference Range Interpretation Comme nts GLUCOSE (test code = 2217) 90 MG/DL BUN (test code = 2208) 9 MG/DL CREATININE (test code = 2214) 0.90 MG/DL eGFR (2020 CKD-EPI) (test co de = 51202) 69 ML/MIN/1.73 CALC BUN/CREAT (test code = 2235) 10 RATIO SODIUM (test code = 2231) 141 MEQ/L POTASSIUM (test code = 2228) 3.6 MEQ/L CHLORIDE (test code = 2215) 103 MEQ/L CARBON DIOXIDE (test code = 2206) 26 MEQ/L CALCIUM (test code = 2209) 9.6 MG/DL PROTEIN, TOTAL (test code = 2229) 7.1 G/DL ALBUMIN (test code = 2201) 4.5 G/DL CALC GLOBULIN (test code = 2240) 2.6 G/DL CALC A/G RATIO (test code = 2234) 1.7 RATIO BILIRUBIN, TOTAL (test code = 2207) 0.3 MG/DL ALKALINE PHOSPHATASE (test code = 2204) 93 U/L AST (test code = 2218) 9 U/L ALT (test code = 2219) 7 U/L Topher BrownLIPID [id number] 00:00:00* Test Item Value Reference Range Interpretation Comme nts CHOLESTEROL (test code = 2210) 149 MG/DL TRIGLYCERIDES (test code = 2232) 193 MG/DL HDL CHOLESTEROL (test code = 2220) 35 MG/DL CALC LDL CHOL (test code = 2237) 85 MG/DL RISK RATIO LDL/HDL (test cod e = 2238) 2.43 RATIO Topher BrownHEMOGLOBIN [id number] 00:00:00* Test Item Value Reference Range Interpretation Comme nts HEMOGLOBIN A1c (test code = 16164) 6.1 % Topher BrownCBC W/AUTO [id number] 00:00:00* Test Item Value Reference Range Interpretation Comme nts WBC (test code = 1001) 7.8 K/UL RBC (test code = 1002) 5.07 M/UL HEMOGLOBIN (test code = 1003) 13.8 G/DL HEMATOCRIT (test code = 1004) 41.6 % MCV (test code = 1005) 82.1 fL MCH (test code = 1006) 27.2 PG MCHC (test code = 1007) 33.2 G/DL RDW (test code = 1038) 13.6 % NEUTROPHILS (test code = 1008) 36.8 % LYMPHOCYTES (test code = 1010) 51.2 % MONOCYTES (test code = 1011) 7.6 % EOSINOPHILS (test code = 1012) 3.7 % BASOPHILS (test code = 1013) 0.6 % IMMATURE GRANULOCYTES (test code = 1036) 0.1 % NUCLEATED RBCS (test code = 1065) 0.0 /100WBC'S PLATELET COUNT (test code = 1015) 391 K/UL ABSOLUTE NEUTROPHILS (test c ode = 1066) 2.85 K/UL ABSOLUTE LYMPHOCYTES (test c ode = 1067) 3.98 K/UL ABSOLUTE MONOCYTES (test cod e = 1068) 0.59 K/UL ABSOLUTE EOSINOPHILS (test c ode = 1040) 0.29 K/UL ABSOLUTE BASOPHILS (test cod e = 1069) 0.05 K/UL ABS IMMATURE GRANULOCYTES (t est code = 1020) 0.01 K/UL ABS NUCLEATED RBCS (test cod e = 49544) 0.00 K/UL [facility] R[facility] FT[facility] AND [id number] 00:00:00* Test Item Value Reference Range Interpretation Comme nts TSH RFLX FT4 AND FT3 (test c ode = 46257) 2.370 UIU/ML Topher BrownCOMPREHENSIVE METABOLIC [id number] 00:00:00* Test Item Value Reference Range Interpretation Comme nts GLUCOSE (test code = 2217) 90 MG/DL BUN (test code = 2208) 9 MG/DL CREATININE (test code = 2214) 0.90 MG/DL eGFR (2020 CKD-EPI) (test co de = 90819) 69 ML/MIN/1.73 CALC BUN/CREAT (test code = 2235) 10 RATIO SODIUM (test code = 2231) 141 MEQ/L POTASSIUM (test code = 2228) 3.6 MEQ/L CHLORIDE (test code = 2215) 103 MEQ/L CARBON DIOXIDE (test code = 2206) 26 MEQ/L CALCIUM (test code = 2209) 9.6 MG/DL PROTEIN, TOTAL (test code = 2229) 7.1 G/DL ALBUMIN (test code = 2201) 4.5 G/DL CALC GLOBULIN (test code = 2240) 2.6 G/DL CALC A/G RATIO (test code = 2234) 1.7 RATIO BILIRUBIN, TOTAL (test code = 2207) 0.3 MG/DL ALKALINE PHOSPHATASE (test code = 2204) 93 U/L AST (test code = 2218) 9 U/L ALT (test code = 2219) 7 U/L Topher BrownLIPID [id number] 00:00:00* Test Item Value Reference Range Interpretation Comme nts CHOLESTEROL (test code = 2210) 149 MG/DL TRIGLYCERIDES (test code = 2232) 193 MG/DL HDL CHOLESTEROL (test code = 2220) 35 MG/DL CALC LDL CHOL (test code = 2237) 85 MG/DL RISK RATIO LDL/HDL (test cod e = 2238) 2.43 RATIO Topher BrownHEMOGLOBIN [id number] 00:00:00* Test Item Value Reference Range Interpretation Comme [facility] HEMOGLOBIN A1c (test code = 13852) 6.1 % Topher BrownCBC W/AUTO [id number] 00:00:00* Test Item Value Reference Range Interpretation Comme nts WBC (test code = 1001) 7.8 K/UL RBC (test code = 1002) 5.07 M/UL HEMOGLOBIN (test code = 1003) 13.8 G/DL HEMATOCRIT (test code = 1004) 41.6 % MCV (test code = 1005) 82.1 fL MCH (test code = 1006) 27.2 PG MCHC (test code = 1007) 33.2 G/DL RDW (test code = 1038) 13.6 % NEUTROPHILS (test code = 1008) 36.8 % LYMPHOCYTES (test code = 1010) 51.2 % MONOCYTES (test code = 1011) 7.6 % EOSINOPHILS (test code = 1012) 3.7 % BASOPHILS (test code = 1013) 0.6 % IMMATURE GRANULOCYTES (test code = 1036) 0.1 % NUCLEATED RBCS (test code = 1065) 0.0 /100WBC'S PLATELET COUNT (test code = 1015) 391 K/UL ABSOLUTE NEUTROPHILS (test c ode = 1066) 2.85 K/UL ABSOLUTE LYMPHOCYTES (test c ode = 1067) 3.98 K/UL ABSOLUTE MONOCYTES (test cod e = 1068) 0.59 K/UL ABSOLUTE EOSINOPHILS (test c ode = 1040) 0.29 K/UL ABSOLUTE BASOPHILS (test cod e = 1069) 0.05 K/UL ABS IMMATURE GRANULOCYTES (t est code = 1020) 0.01 K/UL ABS NUCLEATED RBCS (test cod e = 02499) 0.00 K/UL [facility] RFL[facility] FT4 AND [id number] 00:00:00* Test Item Value Reference Range Interpretation Comme nts TSH RFLX FT4 AND FT3 (test c ode = 72728) 2.370 UIU/ML Topher BrownCOMPREHENSIVE METABOLIC [id number] 00:00:00* Test Item Value Reference Range Interpretation Comme nts GLUCOSE (test code = 2217) 90 MG/DL BUN (test code = 2208) 9 MG/DL CREATININE (test code = 2214) 0.90 MG/DL eGFR (2020 CKD-EPI) (test co de = 93372) 69 ML/MIN/1.73 CALC BUN/CREAT (test code = 2235) 10 RATIO SODIUM (test code = 2231) 141 MEQ/L POTASSIUM (test code = 2228) 3.6 MEQ/L CHLORIDE (test code = 2215) 103 MEQ/L CARBON DIOXIDE (test code = 2206) 26 MEQ/L CALCIUM (test code = 2209) 9.6 MG/DL PROTEIN, TOTAL (test code = 2229) 7.1 G/DL ALBUMIN (test code = 2201) 4.5 G/DL CALC GLOBULIN (test code = 2240) 2.6 G/DL CALC A/G RATIO (test code = 2234) 1.7 RATIO BILIRUBIN, TOTAL (test code = 2207) 0.3 MG/DL ALKALINE PHOSPHATASE (test code = 2204) 93 U/L AST (test code = 2218) 9 U/L ALT (test code = 2219) 7 U/L Topher BrownLIPID [id number] 00:00:00* Test Item Value Reference Range Interpretation Comme nts CHOLESTEROL (test code = 2210) 149 MG/DL TRIGLYCERIDES (test code = 2232) 193 MG/DL HDL CHOLESTEROL (test code = 2220) 35 MG/DL CALC LDL CHOL (test code = 2237) 85 MG/DL RISK RATIO LDL/HDL (test cod e = 2238) 2.43 RATIO Topher BrownHEMOGLOBIN [id number] 00:00:00* Test Item Value Reference Range Interpretation Comme nts HEMOGLOBIN A1c (test code = 84678) 6.1 % Topher BrownCBC W/AUTO [id number] 00:00:00* Test Item Value Reference Range Interpretation Comme nts WBC (test code = 1001) 7.8 K/UL RBC (test code = 1002) 5.07 M/UL HEMOGLOBIN (test code = 1003) 13.8 G/DL HEMATOCRIT (test code = 1004) 41.6 % MCV (test code = 1005) 82.1 fL MCH (test code = 1006) 27.2 PG MCHC (test code = 1007) 33.2 G/DL RDW (test code = 1038) 13.6 % NEUTROPHILS (test code = 1008) 36.8 % LYMPHOCYTES (test code = 1010) 51.2 % MONOCYTES (test code = 1011) 7.6 % EOSINOPHILS (test code = 1012) 3.7 % BASOPHILS (test code = 1013) 0.6 % IMMATURE GRANULOCYTES (test code = 1036) 0.1 % NUCLEATED RBCS (test code = 1065) 0.0 /100WBC'S PLATELET COUNT (test code = 1015) 391 K/UL ABSOLUTE NEUTROPHILS (test c ode = 1066) 2.85 K/UL ABSOLUTE LYMPHOCYTES (test c ode = 1067) 3.98 K/UL ABSOLUTE MONOCYTES (test cod e = 1068) 0.59 K/UL ABSOLUTE EOSINOPHILS (test c ode = 1040) 0.29 K/UL ABSOLUTE BASOPHILS (test cod e = 1069) 0.05 K/UL ABS IMMATURE GRANULOCYTES (t est code = 1020) 0.01 K/UL ABS NUCLEATED RBCS (test cod e = 38429) 0.00 K/UL [facility] RFLX FT4 AND [id number] 00:00:00* Test Item Value Reference Range Interpretation Comme nts TSH RFLX FT4 AND FT3 (test c ode = 98928) 2.370 UIU/ML Topher BrownCOMPREHENSIVE METABOLIC [id number] 00:00:00* Test Item Value Reference Range Interpretation Comme nts GLUCOSE (test code = 2217) 90 MG/DL BUN (test code = 2208) 9 MG/DL CREATININE (test code = 2214) 0.90 MG/DL eGFR (2020 CKD-EPI) (test co de = 48935) 69 ML/MIN/1.73 CALC BUN/CREAT (test code = 2235) 10 RATIO SODIUM (test code = 2231) 141 MEQ/L POTASSIUM (test code = 2228) 3.6 MEQ/L CHLORIDE (test code = 2215) 103 MEQ/L CARBON DIOXIDE (test code = 2206) 26 MEQ/L CALCIUM (test code = 2209) 9.6 MG/DL PROTEIN, TOTAL (test code = 2229) 7.1 G/DL ALBUMIN (test code = 2201) 4.5 G/DL CALC GLOBULIN (test code = 2240) 2.6 G/DL CALC A/G RATIO (test code = 2234) 1.7 RATIO BILIRUBIN, TOTAL (test code = 2207) 0.3 MG/DL ALKALINE PHOSPHATASE (test code = 2204) 93 U/L AST (test code = 2218) 9 U/L ALT (test code = 2219) 7 U/L Topher BrownLIPID [id number] 00:00:00* Test Item Value Reference Range Interpretation Comme nts CHOLESTEROL (test code = 2210) 149 MG/DL TRIGLYCERIDES (test code = 2232) 193 MG/DL HDL CHOLESTEROL (test code = 2220) 35 MG/DL CALC LDL CHOL (test code = 2237) 85 MG/DL RISK RATIO LDL/HDL (test cod e = 2238) 2.43 RATIO Topher BrownHEMOGLOBIN [id number] 00:00:00* Test Item Value Reference Range Interpretation Comme [facility] HEMOGLOBIN A1c (test code = 48712) 6.1 % Topher BrownVITAMIN D, 25 [id number] 06:17:26* Test Item Value Reference Range Interpretation Comme [facility] VITAMIN D, 25 OH (test code = 4958) 87 NG/ML SEE BELOW EFFECTIVE 03/2023, PLEASE NOTE NEW METHODOLOGY IS ELECTROCHEMILUMINESCENCE BINDING ASSAY. NOTE: 25-HYDROXYVITAMIN D ASSAY INCLUDES 25-HYDROXYVITAMIN D2 AND D3. INTERPRETIVE RANGES PEDIATRIC (<17 YEARS) . . . . . . . . . . . NG/ML 20-100ADULT: INSUFFICIENT . . . . . . . . . . . . . . NG/ML <20 SUBOPTIMAL . . . . . . . . . . . . . . . NG/ML 20-29 OPTIMAL . . . . . . . . . . . . . . . . . NG/ML 30-100 LIPID [id number] 06:14:09* Test Item Value Reference Range Interpretation Comme nts CHOLESTEROL (test code = 2210) 140 MG/DL <200 TRIGLYCERIDES (test code = 2232) 181 MG/DL <150 H HDL CHOLESTEROL (test code = 2220) 37 MG/DL >39 L CALC LDL CHOL (test code = 2237) 75 MG/DL <100 NOTE: CALCULATED LDL IS BASED ON NURA-COWART METHOD WHICHINCLUDES ADJUSTABLE TRIGLYCERIDE:VLDL CHOLESTEROL RATIO.THIS FACTOR VARIES BY MEASURED TRIGLYCERIDE AND NON-HDLCHOLESTEROL CONCENTRATIONS WITH INCREASED CALCULATED LDL SEENIN HIGHER TRIGLYCERIDE OR LOWER NON-HDL SPECIMENS. FOR MOREINFORMATION, SEE CLIENT ANNOUNCEMENT AT [email or web address] RISK RATIO LDL/HDL (test code = 2238) 2.03 RATIO <3.22 COMPREHENSIVE METABOLIC [id number] 06:14:09* Test Item Value Reference Range Interpretation Comme nts GLUCOSE (test code = 2217) 90 MG/DL 70-99 BUN (test code = 2207) 4 MG/DL 8-23 L RESULTS RECHECKE D AND VERIFIED CREATININE (test code = 221) 0.74 MG/DL 0.60-1.30 eGFR (2020 CKD-EPI) (test code = 78541) 88 ML/MIN/1.73 >60 CALC BUN/CREAT (test code = 2235) 5 RATIO 6-28 L SODIUM (test code = 223) 144 MEQ/L 133-146 POTASSIUM (test code = 2228) 3.3 MEQ/L 3.5-5.4 L CHLORIDE (test code = 2215) 105 MEQ/L 95-107 CARBON DIOXIDE (test code = 2206) 24 MEQ/L 19-31 CALCIUM (test code = 2209) 9.7 MG/DL 8.5-10.5 PROTEIN, TOTAL (test code = 222) 7.1 G/DL 6.1-8.3 ALBUMIN (test code = 2201) 4.7 G/DL 3.5-5.2 CALC GLOBULIN (test code = 2240) 2.4 G/DL 1.9-3.7 CALC A/G RATIO (test code = 2234) 2.0 RATIO 1.0-2.6 BILIRUBIN, TOTAL (test code = 220) 0.3 MG/DL See_Comment [Automated me ssage] The system which generated this result transmitted reference range: <=1.2. The reference range was not used to interpret this result as normal/abnormal. ALKALINE PHOSPHATASE (test code = 2204) 92 U/L 40-142 AST (test code = 2218) 9 U/L 9-40 ALT (test code = 2219) 6 U/L 5-40 [id number] 06:13:13* Test Item Value Reference Range Interpretation Comments CEA (test code = 2645) 4.3 NG/ML See_Comment H In otherwise hea lthy smokers, 95% of patients fall in the rangeof 0.0-5.5 ng/mL. NOTE: Methodology is Arlen Teja ElectrochemiluminescenceImmunoassay (ECLIA). UNLESS OTHERWISE INDICATED, ALL TESTING PERFORMED AT [facility] [address] [place] [address] MONUMENT INSTALLER: ANDREA KEYES M.D. CLIA NUMBER [id number] [place]. [id number] [Automated message] The system which generated this result transmitted reference range: <=3.8. The reference range was not used to interpret this result as normal/abnormal. HEMOGLOBIN [id number] 02:46:38* Test Item Value Reference Range Interpretation Comme nts HEMOGLOBIN A1c (test code = 27881) 5.8 % 4.2-5.6 H [employer] GUIDELINES FOR HGB A1C: PREDIABETES/INCREASED RISK . . . . . . . 5.7-6.4% DIAGNOSIS OF DIABETES . . . . . . . . . >=6.5% WITH CONFIRMATION OR APPROPRIATE SYMPTOMS NOTE: ASSAY MAY BE AFFECTED BY HEMOGLOBINOPATHIES (SICKLE CELL ANEMIA, S-C DISEASE, OTHERS) OR ARTIFICIALLY LOWERED BY DECREASED RED CELL SURVIVAL (HEMOLYTIC ANEMIAS, BLOOD LOSS, ETC.). CONSIDER ALTERNATE TESTING OR LABORATORY CONSULTATION. CBC W/AUTO DIFF WITH [id number] 02:17:45* Test Item Value Reference Range Interpretation Comme nts WBC (test code = 1001) 8.8 K/UL 3.5-11.0 RBC (test code = 1002) 4.50 M/UL 3.80-5.40 HEMOGLOBIN (test code = 1003) 13.1 G/DL 11.5-15.5 HEMATOCRIT (test code = 1004) 38.8 % 34.0-45.0 MCV (test code = 1005) 86.2 fL 80.0-99.0 MCH (test code = 1006) 29.1 PG 25.0-33.0 MCHC (test code = 1007) 33.8 G/DL 31.0-36.0 RDW (test code = 1038) 13.2 % 11.5-15.0 NEUTROPHILS (test code = 1008) 44.1 % LYMPHOCYTES (test code = 1010) 44.1 % MONOCYTES (test code = 1011) 8.7 % EOSINOPHILS (test code = 1012) 2.4 % BASOPHILS (test code = 1013) 0.5 % IMMATURE GRANULOCYTES (test code = 1036) 0.2 % NUCLEATED RBCS (test code = 1065) 0.0 /100 WBC'S See_Comment [Automated schooxa ge] The system which generated this result transmitted reference range: 0.0. The reference range was not used to interpret this result as normal/abnormal. PLATELET COUNT (test code = 1015) 404 K/UL 130-400 H ABSOLUTE NEUTROPHILS (test code = 1066) 3.87 K/UL 1.50-7.50 ABSOLUTE LYMPHOCYTES (test code = 1067) 3.87 K/UL 1.00-4.00 ABSOLUTE MONOCYTES (test code = 1068) 0.76 K/UL 0.20-1.00 ABSOLUTE EOSINOPHILS (test code = 1040) 0.21 K/UL 0.00-0.50 ABSOLUTE BASOPHILS (test code = 1069) 0.04 K/UL 0.00-0.20 ABS IMMATURE GRANULOCYTES (test code = 1020) 0.02 K/UL 0.00-0.10 ABS NUCLEATED RBCS (test code = 92834) 0.00 K/UL 0.00-0.11 VITAMIN D, 25 [id number] 00:00:00* Test Item Value Reference Range Interpretation Comme nts VITAMIN D, 25 OH (test code = 4958) 87 NG/ML Topher Cam [id number] 00:00:00* Test Item Value Reference Range Interpretation Comme nts CEA (test code = 2645) 4.3 NG/ML Topher Cam KevinCBC W/AUTO [id number] 00:00:00* Test Item Value Reference Range Interpretation Comme nts WBC (test code = 1001) 8.8 K/UL RBC (test code = 1002) 4.50 M/UL HEMOGLOBIN (test code = 1003) 13.1 G/DL HEMATOCRIT (test code = 1004) 38.8 % MCV (test code = 1005) 86.2 fL MCH (test code = 1006) 29.1 PG MCHC (test code = 1007) 33.8 G/DL RDW (test code = 1038) 13.2 % NEUTROPHILS (test code = 1008) 44.1 % LYMPHOCYTES (test code = 1010) 44.1 % MONOCYTES (test code = 1011) 8.7 % EOSINOPHILS (test code = 1012) 2.4 % BASOPHILS (test code = 1013) 0.5 % IMMATURE GRANULOCYTES (test code = 1036) 0.2 % NUCLEATED RBCS (test code = 1065) 0.0 /100WBC'S PLATELET COUNT (test code = 1015) 404 K/UL ABSOLUTE NEUTROPHILS (test c ode = 1066) 3.87 K/UL ABSOLUTE LYMPHOCYTES (test c ode = 1067) 3.87 K/UL ABSOLUTE MONOCYTES (test cod e = 1068) 0.76 K/UL ABSOLUTE EOSINOPHILS (test c ode = 1040) 0.21 K/UL ABSOLUTE BASOPHILS (test cod e = 1069) 0.04 K/UL ABS IMMATURE GRANULOCYTES (t est code = 1020) 0.02 K/UL ABS NUCLEATED RBCS (test cod e = 66700) 0.00 K/UL Topher BrownHEMOGLOBIN [id number] 00:00:00* Test Item Value Reference Range Interpretation Comme nts HEMOGLOBIN A1c (test code = 39247) 5.8 % Topher Cam AustinLIPID [id number] 00:00:00* Test Item Value Reference Range Interpretation Comme nts CHOLESTEROL (test code = 2210) 140 MG/DL TRIGLYCERIDES (test code = 2232) 181 MG/DL HDL CHOLESTEROL (test code = 2220) 37 MG/DL CALC LDL CHOL (test code = 2237) 75 MG/DL RISK RATIO LDL/HDL (test cod e = 2238) 2.03 RATIO Topher BrownCOMPREHENSIVE METABOLIC [id number] 00:00:00* Test Item Value Reference Range Interpretation Comme nts GLUCOSE (test code = 2217) 90 MG/DL BUN (test code = 2208) 4 MG/DL CREATININE (test code = 2214) 0.74 MG/DL eGFR (2020 CKD-EPI) (test co de = 95936) 88 ML/MIN/1.73 CALC BUN/CREAT (test code = 2235) 5 RATIO SODIUM (test code = 2231) 144 MEQ/L POTASSIUM (test code = 2228) 3.3 MEQ/L CHLORIDE (test code = 2215) 105 MEQ/L CARBON DIOXIDE (test code = 2206) 24 MEQ/L CALCIUM (test code = 2209) 9.7 MG/DL PROTEIN, TOTAL (test code = 2229) 7.1 G/DL ALBUMIN (test code = 2201) 4.7 G/DL CALC GLOBULIN (test code = 2240) 2.4 G/DL CALC A/G RATIO (test code = 2234) 2.0 RATIO BILIRUBIN, TOTAL (test code = 2207) 0.3 MG/DL ALKALINE PHOSPHATASE (test code = 2204) 92 U/L AST (test code = 2218) 9 U/L ALT (test code = 2219) 6 U/L Topher BrownVITAMIN D, 25 [id number] 00:00:00* Test Item Value Reference Range Interpretation Comme nts VITAMIN D, 25 OH (test code = 4958) 87 NG/ML Topher [id number] 00:00:00* Test Item Value Reference Range Interpretation Comme nts CEA (test code = 2645) 4.3 NG/ML Topher BrownCBC W/AUTO [id number] 00:00:00* Test Item Value Reference Range Interpretation Comme nts WBC (test code = 1001) 8.8 K/UL RBC (test code = 1002) 4.50 M/UL HEMOGLOBIN (test code = 1003) 13.1 G/DL HEMATOCRIT (test code = 1004) 38.8 % MCV (test code = 1005) 86.2 fL MCH (test code = 1006) 29.1 PG MCHC (test code = 1007) 33.8 G/DL RDW (test code = 1038) 13.2 % NEUTROPHILS (test code = 1008) 44.1 % LYMPHOCYTES (test code = 1010) 44.1 % MONOCYTES (test code = 1011) 8.7 % EOSINOPHILS (test code = 1012) 2.4 % BASOPHILS (test code = 1013) 0.5 % IMMATURE GRANULOCYTES (test code = 1036) 0.2 % NUCLEATED RBCS (test code = 1065) 0.0 /100WBC'S PLATELET COUNT (test code = 1015) 404 K/UL ABSOLUTE NEUTROPHILS (test c ode = 1066) 3.87 K/UL ABSOLUTE LYMPHOCYTES (test c ode = 1067) 3.87 K/UL ABSOLUTE MONOCYTES (test cod e = 1068) 0.76 K/UL ABSOLUTE EOSINOPHILS (test c ode = 1040) 0.21 K/UL ABSOLUTE BASOPHILS (test cod e = 1069) 0.04 K/UL ABS IMMATURE GRANULOCYTES (t est code = 1020) 0.02 K/UL ABS NUCLEATED RBCS (test cod e = 04357) 0.00 K/UL Topher BrownHEMOGLOBIN [id number] 00:00:00* Test Item Value Reference Range Interpretation Comme nts HEMOGLOBIN A1c (test code = 78743) 5.8 % Topher BrownCBC W/AUTO [id number] 00:00:00* Test Item Value Reference Range Interpretation Comme nts WBC (test code = 1001) 8.8 K/UL RBC (test code = 1002) 4.50 M/UL HEMOGLOBIN (test code = 1003) 13.1 G/DL HEMATOCRIT (test code = 1004) 38.8 % MCV (test code = 1005) 86.2 fL MCH (test code = 1006) 29.1 PG MCHC (test code = 1007) 33.8 G/DL RDW (test code = 1038) 13.2 % NEUTROPHILS (test code = 1008) 44.1 % LYMPHOCYTES (test code = 1010) 44.1 % MONOCYTES (test code = 1011) 8.7 % EOSINOPHILS (test code = 1012) 2.4 % BASOPHILS (test code = 1013) 0.5 % IMMATURE GRANULOCYTES (test code = 1036) 0.2 % NUCLEATED RBCS (test code = 1065) 0.0 /100WBC'S PLATELET COUNT (test code = 1015) 404 K/UL ABSOLUTE NEUTROPHILS (test c ode = 1066) 3.87 K/UL ABSOLUTE LYMPHOCYTES (test c ode = 1067) 3.87 K/UL ABSOLUTE MONOCYTES (test cod e = 1068) 0.76 K/UL ABSOLUTE EOSINOPHILS (test c ode = 1040) 0.21 K/UL ABSOLUTE BASOPHILS (test cod e = 1069) 0.04 K/UL ABS IMMATURE GRANULOCYTES (t est code = 1020) 0.02 K/UL ABS NUCLEATED RBCS (test cod e = 71248) 0.00 K/UL Topher BrownLIPID [id number] 00:00:00* Test Item Value Reference Range Interpretation Comme nts CHOLESTEROL (test code = 2210) 140 MG/DL TRIGLYCERIDES (test code = 2232) 181 MG/DL HDL CHOLESTEROL (test code = 2220) 37 MG/DL CALC LDL CHOL (test code = 2237) 75 MG/DL RISK RATIO LDL/HDL (test cod e = 2238) 2.03 RATIO Topher BrownCOMPREHENSIVE METABOLIC [id number] 00:00:00* Test Item Value Reference Range Interpretation Comme nts GLUCOSE (test code = 2217) 90 MG/DL BUN (test code = 2208) 4 MG/DL CREATININE (test code = 2214) 0.74 MG/DL eGFR (2020 CKD-EPI) (test co de = 89300) 88 ML/MIN/1.73 CALC BUN/CREAT (test code = 2235) 5 RATIO SODIUM (test code = 2231) 144 MEQ/L POTASSIUM (test code = 2228) 3.3 MEQ/L CHLORIDE (test code = 2215) 105 MEQ/L CARBON DIOXIDE (test code = 2206) 24 MEQ/L CALCIUM (test code = 2209) 9.7 MG/DL PROTEIN, TOTAL (test code = 2229) 7.1 G/DL ALBUMIN (test code = 2201) 4.7 G/DL CALC GLOBULIN (test code = 2240) 2.4 G/DL CALC A/G RATIO (test code = 2234) 2.0 RATIO BILIRUBIN, TOTAL (test code = 2207) 0.3 MG/DL ALKALINE PHOSPHATASE (test code = 2204) 92 U/L AST (test code = 2218) 9 U/L ALT (test code = 2219) 6 U/L Topher BrownVITAMIN D, 25 [id number] 00:00:00* Test Item Value Reference Range Interpretation Comme nts VITAMIN D, 25 OH (test code = 4958) 87 NG/ML Topher [id number] 00:00:00* Test Item Value Reference Range Interpretation Comme nts CEA (test code = 2645) 4.3 NG/ML Topher BrownCBC W/AUTO [id number] 00:00:00* Test Item Value Reference Range Interpretation Comme nts WBC (test code = 1001) 8.8 K/UL RBC (test code = 1002) 4.50 M/UL HEMOGLOBIN (test code = 1003) 13.1 G/DL HEMATOCRIT (test code = 1004) 38.8 % MCV (test code = 1005) 86.2 fL MCH (test code = 1006) 29.1 PG MCHC (test code = 1007) 33.8 G/DL RDW (test code = 1038) 13.2 % NEUTROPHILS (test code = 1008) 44.1 % LYMPHOCYTES (test code = 1010) 44.1 % MONOCYTES (test code = 1011) 8.7 % EOSINOPHILS (test code = 1012) 2.4 % BASOPHILS (test code = 1013) 0.5 % IMMATURE GRANULOCYTES (test code = 1036) 0.2 % NUCLEATED RBCS (test code = 1065) 0.0 /100WBC'S PLATELET COUNT (test code = 1015) 404 K/UL ABSOLUTE NEUTROPHILS (test c ode = 1066) 3.87 K/UL ABSOLUTE LYMPHOCYTES (test c ode = 1067) 3.87 K/UL ABSOLUTE MONOCYTES (test cod e = 1068) 0.76 K/UL ABSOLUTE EOSINOPHILS (test c ode = 1040) 0.21 K/UL ABSOLUTE BASOPHILS (test cod e = 1069) 0.04 K/UL ABS IMMATURE GRANULOCYTES (t est code = 1020) 0.02 K/UL ABS NUCLEATED RBCS (test cod e = 42354) 0.00 K/UL Topher BrownHEMOGLOBIN [id number] 00:00:00* Test Item Value Reference Range Interpretation Comme nts HEMOGLOBIN A1c (test code = 91664) 5.8 % Topher Cam AustinHEMOGLOBIN [id number] 00:00:00* Test Item Value Reference Range Interpretation Comme nts HEMOGLOBIN A1c (test code = 23470) 5.8 % Topher BrownLIPID [id number] 00:00:00* Test Item Value Reference Range Interpretation Comme nts CHOLESTEROL (test code = 2210) 140 MG/DL TRIGLYCERIDES (test code = 2232) 181 MG/DL HDL CHOLESTEROL (test code = 2220) 37 MG/DL CALC LDL CHOL (test code = 2237) 75 MG/DL RISK RATIO LDL/HDL (test cod e = 2238) 2.03 RATIO Topher BrownCOMPREHENSIVE METABOLIC [id number] 00:00:00* Test Item Value Reference Range Interpretation Comme nts GLUCOSE (test code = 2217) 90 MG/DL BUN (test code = 2208) 4 MG/DL CREATININE (test code = 2214) 0.74 MG/DL eGFR (2020 CKD-EPI) (test co de = 19887) 88 ML/MIN/1.73 CALC BUN/CREAT (test code = 2235) 5 RATIO SODIUM (test code = 2231) 144 MEQ/L POTASSIUM (test code = 2228) 3.3 MEQ/L CHLORIDE (test code = 2215) 105 MEQ/L CARBON DIOXIDE (test code = 2206) 24 MEQ/L CALCIUM (test code = 2209) 9.7 MG/DL PROTEIN, TOTAL (test code = 2229) 7.1 G/DL ALBUMIN (test code = 2201) 4.7 G/DL CALC GLOBULIN (test code = 2240) 2.4 G/DL CALC A/G RATIO (test code = 2234) 2.0 RATIO BILIRUBIN, TOTAL (test code = 2207) 0.3 MG/DL ALKALINE PHOSPHATASE (test code = 2204) 92 U/L AST (test code = 2218) 9 U/L ALT (test code = 2219) 6 U/L Topher BrownVITAMIN D, 25 [id number] 00:00:00* Test Item Value Reference Range Interpretation Comme nts VITAMIN D, 25 OH (test code = 4958) 87 NG/ML Topher [id number] 00:00:00* Test Item Value Reference Range Interpretation Comme nts CEA (test code = 2645) 4.3 NG/ML Topher BrownCBC W/AUTO [id number] 00:00:00* Test Item Value Reference Range Interpretation Comme nts WBC (test code = 1001) 8.8 K/UL RBC (test code = 1002) 4.50 M/UL HEMOGLOBIN (test code = 1003) 13.1 G/DL HEMATOCRIT (test code = 1004) 38.8 % MCV (test code = 1005) 86.2 fL MCH (test code = 1006) 29.1 PG MCHC (test code = 1007) 33.8 G/DL RDW (test code = 1038) 13.2 % NEUTROPHILS (test code = 1008) 44.1 % LYMPHOCYTES (test code = 1010) 44.1 % MONOCYTES (test code = 1011) 8.7 % EOSINOPHILS (test code = 1012) 2.4 % BASOPHILS (test code = 1013) 0.5 % IMMATURE GRANULOCYTES (test code = 1036) 0.2 % NUCLEATED RBCS (test code = 1065) 0.0 /100WBC'S PLATELET COUNT (test code = 1015) 404 K/UL ABSOLUTE NEUTROPHILS (test c ode = 1066) 3.87 K/UL ABSOLUTE LYMPHOCYTES (test c ode = 1067) 3.87 K/UL ABSOLUTE MONOCYTES (test cod e = 1068) 0.76 K/UL ABSOLUTE EOSINOPHILS (test c ode = 1040) 0.21 K/UL ABSOLUTE BASOPHILS (test cod e = 1069) 0.04 K/UL ABS IMMATURE GRANULOCYTES (t est code = 1020) 0.02 K/UL ABS NUCLEATED RBCS (test cod e = 43799) 0.00 K/UL Topher BrownHEMOGLOBIN [id number] 00:00:00* Test Item Value Reference Range Interpretation Comme nts HEMOGLOBIN A1c (test code = 43620) 5.8 % Topher Cam AustinLIPID [id number] 00:00:00* Test Item Value Reference Range Interpretation Comme nts CHOLESTEROL (test code = 2210) 140 MG/DL TRIGLYCERIDES (test code = 2232) 181 MG/DL HDL CHOLESTEROL (test code = 2220) 37 MG/DL CALC LDL CHOL (test code = 2237) 75 MG/DL RISK RATIO LDL/HDL (test cod e = 2238) 2.03 RATIO Topher Cam AustinLIPID [id number] 00:00:00* Test Item Value Reference Range Interpretation Comme nts CHOLESTEROL (test code = 2210) 140 MG/DL TRIGLYCERIDES (test code = 2232) 181 MG/DL HDL CHOLESTEROL (test code = 2220) 37 MG/DL CALC LDL CHOL (test code = 2237) 75 MG/DL RISK RATIO LDL/HDL (test cod e = 2238) 2.03 RATIO Topher BrownCOMPREHENSIVE METABOLIC [id number] 00:00:00* Test Item Value Reference Range Interpretation Comme nts GLUCOSE (test code = 2217) 90 MG/DL BUN (test code = 2208) 4 MG/DL CREATININE (test code = 2214) 0.74 MG/DL eGFR (2020 CKD-EPI) (test co de = 12130) 88 ML/MIN/1.73 CALC BUN/CREAT (test code = 2235) 5 RATIO SODIUM (test code = 2231) 144 MEQ/L POTASSIUM (test code = 2228) 3.3 MEQ/L CHLORIDE (test code = 2215) 105 MEQ/L CARBON DIOXIDE (test code = 2206) 24 MEQ/L CALCIUM (test code = 2209) 9.7 MG/DL PROTEIN, TOTAL (test code = 2229) 7.1 G/DL ALBUMIN (test code = 2201) 4.7 G/DL CALC GLOBULIN (test code = 2240) 2.4 G/DL CALC A/G RATIO (test code = 2234) 2.0 RATIO BILIRUBIN, TOTAL (test code = 2207) 0.3 MG/DL ALKALINE PHOSPHATASE (test code = 2204) 92 U/L AST (test code = 2218) 9 U/L ALT (test code = 2219) 6 U/L Topher BrownVITAMIN D, 25 [id number] 00:00:00* Test Item Value Reference Range Interpretation Comme nts VITAMIN D, 25 OH (test code = 4958) 87 NG/ML Topher [id number] 00:00:00* Test Item Value Reference Range Interpretation Comme nts CEA (test code = 2645) 4.3 NG/ML Topher BrownCOMPREHENSIVE METABOLIC [id number] 00:00:00* Test Item Value Reference Range Interpretation Comme nts GLUCOSE (test code = 2217) 90 MG/DL BUN (test code = 2208) 4 MG/DL CREATININE (test code = 2214) 0.74 MG/DL eGFR (2020 CKD-EPI) (test co de = 07857) 88 ML/MIN/1.73 CALC BUN/CREAT (test code = 2235) 5 RATIO SODIUM (test code = 2231) 144 MEQ/L POTASSIUM (test code = 2228) 3.3 MEQ/L CHLORIDE (test code = 2215) 105 MEQ/L CARBON DIOXIDE (test code = 2206) 24 MEQ/L CALCIUM (test code = 2209) 9.7 MG/DL PROTEIN, TOTAL (test code = 2229) 7.1 G/DL ALBUMIN (test code = 2201) 4.7 G/DL CALC GLOBULIN (test code = 2240) 2.4 G/DL CALC A/G RATIO (test code = 2234) 2.0 RATIO BILIRUBIN, TOTAL (test code = 2207) 0.3 MG/DL ALKALINE PHOSPHATASE (test code = 2204) 92 U/L AST (test code = 2218) 9 U/L ALT (test code = 2219) 6 U/L Topher BrownVITAMIN D, 25 [id number] 00:00:00* Test Item Value Reference Range Interpretation Comme nts VITAMIN D, 25 OH (test code = 4958) 87 NG/ML Topher [id number] 00:00:00* Test Item Value Reference Range Interpretation Comme nts CEA (test code = 2645) 4.3 NG/ML Topher BrownCBC W/AUTO [id number] 00:00:00* Test Item Value Reference Range Interpretation Comme nts WBC (test code = 1001) 8.8 K/UL RBC (test code = 1002) 4.50 M/UL HEMOGLOBIN (test code = 1003) 13.1 G/DL HEMATOCRIT (test code = 1004) 38.8 % MCV (test code = 1005) 86.2 fL MCH (test code = 1006) 29.1 PG MCHC (test code = 1007) 33.8 G/DL RDW (test code = 1038) 13.2 % NEUTROPHILS (test code = 1008) 44.1 % LYMPHOCYTES (test code = 1010) 44.1 % MONOCYTES (test code = 1011) 8.7 % EOSINOPHILS (test code = 1012) 2.4 % BASOPHILS (test code = 1013) 0.5 % IMMATURE GRANULOCYTES (test code = 1036) 0.2 % NUCLEATED RBCS (test code = 1065) 0.0 /100WBC'S PLATELET COUNT (test code = 1015) 404 K/UL ABSOLUTE NEUTROPHILS (test c ode = 1066) 3.87 K/UL ABSOLUTE LYMPHOCYTES (test c ode = 1067) 3.87 K/UL ABSOLUTE MONOCYTES (test cod e = 1068) 0.76 K/UL ABSOLUTE EOSINOPHILS (test c ode = 1040) 0.21 K/UL ABSOLUTE BASOPHILS (test cod e = 1069) 0.04 K/UL ABS IMMATURE GRANULOCYTES (t est code = 1020) 0.02 K/UL ABS NUCLEATED RBCS (test cod e = 47388) 0.00 K/UL Topher BrownHEMOGLOBIN [id number] 00:00:00* Test Item Value Reference Range Interpretation Comme nts HEMOGLOBIN A1c (test code = 89158) 5.8 % Topher BrownLIPID [id number] 00:00:00* Test Item Value Reference Range Interpretation Comme nts CHOLESTEROL (test code = 2210) 140 MG/DL TRIGLYCERIDES (test code = 2232) 181 MG/DL HDL CHOLESTEROL (test code = 2220) 37 MG/DL CALC LDL CHOL (test code = 2237) 75 MG/DL RISK RATIO LDL/HDL (test cod e = 2238) 2.03 RATIO Topher BrownCOMPREHENSIVE METABOLIC [id number] 00:00:00* Test Item Value Reference Range Interpretation Comme nts GLUCOSE (test code = 2217) 90 MG/DL BUN (test code = 2208) 4 MG/DL CREATININE (test code = 2214) 0.74 MG/DL eGFR (2020 CKD-EPI) (test co de = 70888) 88 ML/MIN/1.73 CALC BUN/CREAT (test code = 2235) 5 RATIO SODIUM (test code = 2231) 144 MEQ/L POTASSIUM (test code = 2228) 3.3 MEQ/L CHLORIDE (test code = 2215) 105 MEQ/L CARBON DIOXIDE (test code = 2206) 24 MEQ/L CALCIUM (test code = 2209) 9.7 MG/DL PROTEIN, TOTAL (test code = 2229) 7.1 G/DL ALBUMIN (test code = 2201) 4.7 G/DL CALC GLOBULIN (test code = 2240) 2.4 G/DL CALC A/G RATIO (test code = 2234) 2.0 RATIO BILIRUBIN, TOTAL (test code = 2207) 0.3 MG/DL ALKALINE PHOSPHATASE (test code = 2204) 92 U/L AST (test code = 2218) 9 U/L ALT (test code = 2219) 6 U/L Topher BrownVITAMIN D, 25 [id number] 00:00:00* Test Item Value Reference Range Interpretation Comme nts VITAMIN D, 25 OH (test code = 4958) 87 NG/ML Topher [id number] 00:00:00* Test Item Value Reference Range Interpretation Comme nts CEA (test code = 2645) 4.3 NG/ML Topher BrownCBC W/AUTO [id number] 00:00:00* Test Item Value Reference Range Interpretation Comme nts WBC (test code = 1001) 8.8 K/UL RBC (test code = 1002) 4.50 M/UL HEMOGLOBIN (test code = 1003) 13.1 G/DL HEMATOCRIT (test code = 1004) 38.8 % MCV (test code = 1005) 86.2 fL MCH (test code = 1006) 29.1 PG MCHC (test code = 1007) 33.8 G/DL RDW (test code = 1038) 13.2 % NEUTROPHILS (test code = 1008) 44.1 % LYMPHOCYTES (test code = 1010) 44.1 % MONOCYTES (test code = 1011) 8.7 % EOSINOPHILS (test code = 1012) 2.4 % BASOPHILS (test code = 1013) 0.5 % IMMATURE GRANULOCYTES (test code = 1036) 0.2 % NUCLEATED RBCS (test code = 1065) 0.0 /100WBC'S PLATELET COUNT (test code = 1015) 404 K/UL ABSOLUTE NEUTROPHILS (test c ode = 1066) 3.87 K/UL ABSOLUTE LYMPHOCYTES (test c ode = 1067) 3.87 K/UL ABSOLUTE MONOCYTES (test cod e = 1068) 0.76 K/UL ABSOLUTE EOSINOPHILS (test c ode = 1040) 0.21 K/UL ABSOLUTE BASOPHILS (test cod e = 1069) 0.04 K/UL ABS IMMATURE GRANULOCYTES (t est code = 1020) 0.02 K/UL ABS NUCLEATED RBCS (test cod e = 32432) 0.00 K/UL Topher BrownHEMOGLOBIN [id number] 00:00:00* Test Item Value Reference Range Interpretation Comme [facility] HEMOGLOBIN A1c (test code = 84354) 5.8 % Topher BrownLIPID [id number] 00:00:00* Test Item Value Reference Range Interpretation Comme nts CHOLESTEROL (test code = 2210) 140 MG/DL TRIGLYCERIDES (test code = 2232) 181 MG/DL HDL CHOLESTEROL (test code = 2220) 37 MG/DL CALC LDL CHOL (test code = 2237) 75 MG/DL RISK RATIO LDL/HDL (test cod e = 2238) 2.03 RATIO Topher BrownCOMPREHENSIVE METABOLIC [id number] 00:00:00* Test Item Value Reference Range Interpretation Comme nts GLUCOSE (test code = 2217) 90 MG/DL BUN (test code = 2208) 4 MG/DL CREATININE (test code = 2214) 0.74 MG/DL eGFR (2020 CKD-EPI) (test co de = 31142) 88 ML/MIN/1.73 CALC BUN/CREAT (test code = 2235) 5 RATIO SODIUM (test code = 2231) 144 MEQ/L POTASSIUM (test code = 2228) 3.3 MEQ/L CHLORIDE (test code = 2215) 105 MEQ/L CARBON DIOXIDE (test code = 2206) 24 MEQ/L CALCIUM (test code = 2209) 9.7 MG/DL PROTEIN, TOTAL (test code = 2229) 7.1 G/DL ALBUMIN (test code = 2201) 4.7 G/DL CALC GLOBULIN (test code = 2240) 2.4 G/DL CALC A/G RATIO (test code = 2234) 2.0 RATIO BILIRUBIN, TOTAL (test code = 2207) 0.3 MG/DL ALKALINE PHOSPHATASE (test code = 2204) 92 U/L AST (test code = 2218) 9 U/L ALT (test code = 2219) 6 U/L Topher BrownVITAMIN D, 25 [id number] 00:00:00* Test Item Value Reference Range Interpretation Comme kimber[facility] VITAMIN D, 25 OH (test code = 4958) 87 NG/ML Topher [id number] 00:00:00* Test Item Value Reference Range Interpretation Comme nts CEA (test code = 2645) 4.3 NG/ML Topher BrownCBC W/AUTO [id number] 00:00:00* Test Item Value Reference Range Interpretation Comme nts WBC (test code = 1001) 8.8 K/UL RBC (test code = 1002) 4.50 M/UL HEMOGLOBIN (test code = 1003) 13.1 G/DL HEMATOCRIT (test code = 1004) 38.8 % MCV (test code = 1005) 86.2 fL MCH (test code = 1006) 29.1 PG MCHC (test code = 1007) 33.8 G/DL RDW (test code = 1038) 13.2 % NEUTROPHILS (test code = 1008) 44.1 % LYMPHOCYTES (test code = 1010) 44.1 % MONOCYTES (test code = 1011) 8.7 % EOSINOPHILS (test code = 1012) 2.4 % BASOPHILS (test code = 1013) 0.5 % IMMATURE GRANULOCYTES (test code = 1036) 0.2 % NUCLEATED RBCS (test code = 1065) 0.0 /100WBC'S PLATELET COUNT (test code = 1015) 404 K/UL ABSOLUTE NEUTROPHILS (test c ode = 1066) 3.87 K/UL ABSOLUTE LYMPHOCYTES (test c ode = 1067) 3.87 K/UL ABSOLUTE MONOCYTES (test cod e = 1068) 0.76 K/UL ABSOLUTE EOSINOPHILS (test c ode = 1040) 0.21 K/UL ABSOLUTE BASOPHILS (test cod e = 1069) 0.04 K/UL ABS IMMATURE GRANULOCYTES (t est code = 1020) 0.02 K/UL ABS NUCLEATED RBCS (test cod e = 13398) 0.00 K/UL Topher BrownHEMOGLOBIN [id number] 00:00:00* Test Item Value Reference Range Interpretation Comme nts HEMOGLOBIN A1c (test code = 52116) 5.8 % Topher BrownLIPID [id number] 00:00:00* Test Item Value Reference Range Interpretation Comme nts CHOLESTEROL (test code = 2210) 140 MG/DL TRIGLYCERIDES (test code = 2232) 181 MG/DL HDL CHOLESTEROL (test code = 2220) 37 MG/DL CALC LDL CHOL (test code = 2237) 75 MG/DL RISK RATIO LDL/HDL (test cod e = 2238) 2.03 RATIO Topher BrownCOMPREHENSIVE METABOLIC [id number] 00:00:00* Test Item Value Reference Range Interpretation Comme nts GLUCOSE (test code = 2217) 90 MG/DL BUN (test code = 2208) 4 MG/DL CREATININE (test code = 2214) 0.74 MG/DL eGFR (2020 CKD-EPI) (test co de = 32885) 88 ML/MIN/1.73 CALC BUN/CREAT (test code = 2235) 5 RATIO SODIUM (test code = 2231) 144 MEQ/L POTASSIUM (test code = 2228) 3.3 MEQ/L CHLORIDE (test code = 2215) 105 MEQ/L CARBON DIOXIDE (test code = 2206) 24 MEQ/L CALCIUM (test code = 2209) 9.7 MG/DL PROTEIN, TOTAL (test code = 2229) 7.1 G/DL ALBUMIN (test code = 2201) 4.7 G/DL CALC GLOBULIN (test code = 2240) 2.4 G/DL CALC A/G RATIO (test code = 2234) 2.0 RATIO BILIRUBIN, TOTAL (test code = 2207) 0.3 MG/DL ALKALINE PHOSPHATASE (test code = 2204) 92 U/L AST (test code = 2218) 9 U/L ALT (test code = 2219) 6 U/L Topher BrownVITAMIN D, 25 [id number] 00:00:00* Test Item Value Reference Range Interpretation Comme [facility] VITAMIN D, 25 OH (test code = 4958) 87 NG/ML Topher [id number] 00:00:00* Test Item Value Reference Range Interpretation Comme nts CEA (test code = 2645) 4.3 NG/ML Topher BrownCBC W/AUTO [id number] 00:00:00* Test Item Value Reference Range Interpretation Comme nts WBC (test code = 1001) 8.8 K/UL RBC (test code = 1002) 4.50 M/UL HEMOGLOBIN (test code = 1003) 13.1 G/DL HEMATOCRIT (test code = 1004) 38.8 % MCV (test code = 1005) 86.2 fL MCH (test code = 1006) 29.1 PG MCHC (test code = 1007) 33.8 G/DL RDW (test code = 1038) 13.2 % NEUTROPHILS (test code = 1008) 44.1 % LYMPHOCYTES (test code = 1010) 44.1 % MONOCYTES (test code = 1011) 8.7 % EOSINOPHILS (test code = 1012) 2.4 % BASOPHILS (test code = 1013) 0.5 % IMMATURE GRANULOCYTES (test code = 1036) 0.2 % NUCLEATED RBCS (test code = 1065) 0.0 /100WBC'S PLATELET COUNT (test code = 1015) 404 K/UL ABSOLUTE NEUTROPHILS (test c ode = 1066) 3.87 K/UL ABSOLUTE LYMPHOCYTES (test c ode = 1067) 3.87 K/UL ABSOLUTE MONOCYTES (test cod e = 1068) 0.76 K/UL ABSOLUTE EOSINOPHILS (test c ode = 1040) 0.21 K/UL ABSOLUTE BASOPHILS (test cod e = 1069) 0.04 K/UL ABS IMMATURE GRANULOCYTES (t est code = 1020) 0.02 K/UL ABS NUCLEATED RBCS (test cod e = 21470) 0.00 K/UL Topher BrownHEMOGLOBIN [id number] 00:00:00* Test Item Value Reference Range Interpretation Comme nts HEMOGLOBIN A1c (test code = 02646) 5.8 % Topher BrownLIPID [id number] 00:00:00* Test Item Value Reference Range Interpretation Comme nts CHOLESTEROL (test code = 2210) 140 MG/DL TRIGLYCERIDES (test code = 2232) 181 MG/DL HDL CHOLESTEROL (test code = 2220) 37 MG/DL CALC LDL CHOL (test code = 2237) 75 MG/DL RISK RATIO LDL/HDL (test cod e = 2238) 2.03 RATIO Topher BrownCOMPREHENSIVE METABOLIC [id number] 00:00:00* Test Item Value Reference Range Interpretation Comme nts GLUCOSE (test code = 2217) 90 MG/DL BUN (test code = 2208) 4 MG/DL CREATININE (test code = 2214) 0.74 MG/DL eGFR (2020 CKD-EPI) (test co de = 25828) 88 ML/MIN/1.73 CALC BUN/CREAT (test code = 2235) 5 RATIO SODIUM (test code = 2231) 144 MEQ/L POTASSIUM (test code = 2228) 3.3 MEQ/L CHLORIDE (test code = 2215) 105 MEQ/L CARBON DIOXIDE (test code = 2206) 24 MEQ/L CALCIUM (test code = 2209) 9.7 MG/DL PROTEIN, TOTAL (test code = 2229) 7.1 G/DL ALBUMIN (test code = 2201) 4.7 G/DL CALC GLOBULIN (test code = 2240) 2.4 G/DL CALC A/G RATIO (test code = 2234) 2.0 RATIO BILIRUBIN, TOTAL (test code = 220) 0.3 MG/DL ALKALINE PHOSPHATASE (test code = 220) 92 U/L AST (test code = 2218) 9 U/L ALT (test code = 2219) 6 U/L Topher BrownCOMPREHENSIVE METABOLIC [id number] 05:34:21* Test Item Value Reference Range Interpretation Comme nts GLUCOSE (test code = 221) 182 MG/DL 70-99 H BUN (test code = 2207) 4 MG/DL 8-23 L CREATININE (test code = 2214) 0.65 MG/DL 0.60-1.30 eGFR (2020 CKD-EPI) (test code = 38150) 96 ML/MIN/1.73 >60 CALC BUN/CREAT (test code = 2235) 6 RATIO 6-28 SODIUM (test code = 2231) 144 MEQ/L 133-146 POTASSIUM (test code = 2228) 3.3 MEQ/L 3.5-5.4 L CHLORIDE (test code = 2215) 104 MEQ/L 95-107 CARBON DIOXIDE (test code = 2206) 23 MEQ/L 19-31 CALCIUM (test code = 2209) 9.9 MG/DL 8.5-10.5 PROTEIN, TOTAL (test code = 222) 7.2 G/DL 6.1-8.3 ALBUMIN (test code = 2201) 4.7 G/DL 3.5-5.2 CALC GLOBULIN (test code = 2240) 2.5 G/DL 1.9-3.7 CALC A/G RATIO (test code = 2234) 1.9 RATIO 1.0-2.6 BILIRUBIN, TOTAL (test code = 2207) 0.3 MG/DL See_Comment [Automated me ssage] The system which generated this result transmitted reference range: <=1.2. The reference range was not used to interpret this result as normal/abnormal. ALKALINE PHOSPHATASE (test code = 2204) 116 U/L 40-142 AST (test code = 2218) 10 U/L 9-40 ALT (test code = 2219) 7 U/L 5-40 LIPID [id number] 05:34:21* Test Item Value Reference Range Interpretation Comme nts CHOLESTEROL (test code = 2210) 137 MG/DL <200 TRIGLYCERIDES (test code = 2232) 159 MG/DL <150 H HDL CHOLESTEROL (test code = 2220) 38 MG/DL >39 L CALC LDL CHOL (test code = 2237) 75 MG/DL <100 NOTE: CALCULATED LDL IS BASED ON NURA-COWART METHOD WHICHINCLUDES ADJUSTABLE TRIGLYCERIDE:VLDL CHOLESTEROL RATIO.THIS FACTOR VARIES BY MEASURED TRIGLYCERIDE AND NON-HDLCHOLESTEROL CONCENTRATIONS WITH INCREASED CALCULATED LDL SEENIN HIGHER TRIGLYCERIDE OR LOWER NON-HDL SPECIMENS. FOR MOREINFORMATION, SEE CLIENT ANNOUNCEMENT AT [email or web address] RISK RATIO LDL/HDL (test code = 2238) 1.97 RATIO <3.22 TSH, THIRD [id number] 04:35:21* Test Item Value Reference Range Interpretation Comme nts TSH, THIRD GENERATION (test code = 2821) 3.200 UIU/ML 0.400-4.100 [facility] has important pathology staff changes effective 08/31/2022. New pathology staff will provide uninterrupted, excellent patient care and clinical consultation. See URL: [email or web address]. UNLESS OTHERWISE INDICATED, ALL TESTING PERFORMED AT [facility] [address] [place] [address] CLIA: [id number], CAP: [id number] HEMOGLOBIN [id number] 03:36:49* Test Item Value Reference Range Interpretation Comme nts HEMOGLOBIN A1c (test code = 17585) 6.1 % 4.2-5.6 H CBC W/AUTO DIFF WITH [id number] 02:40:02* Test Item Value Reference Range Interpretation Comme nts WBC (test code = 1001) 7.8 K/UL 3.5-11.0 RBC (test code = 1002) 5.21 M/UL 3.80-5.40 HEMOGLOBIN (test code = 1003) 14.5 G/DL 11.5-15.5 HEMATOCRIT (test code = 1004) 43.6 % 34.0-45.0 MCV (test code = 1005) 83.7 fL 80.0-99.0 MCH (test code = 1006) 27.8 PG 25.0-33.0 MCHC (test code = 1007) 33.3 G/DL 31.0-36.0 RDW (test code = 1038) 14.0 % 11.5-15.0 NEUTROPHILS (test code = 1008) 45.0 % LYMPHOCYTES (test code = 1010) 46.1 % MONOCYTES (test code = 1011) 5.9 % EOSINOPHILS (test code = 1012) 2.3 % BASOPHILS (test code = 1013) 0.6 % IMMATURE GRANULOCYTES (test code = 1036) 0.1 % NUCLEATED RBCS (test code = 1065) 0.0 /100 WBC'S See_Comment [Automated schooxa ge] The system which generated this result transmitted reference range: 0.0. The reference range was not used to interpret this result as normal/abnormal. PLATELET COUNT (test code = 1015) 404 K/UL 130-400 H ABSOLUTE NEUTROPHILS (test code = 1066) 3.50 K/UL 1.50-7.50 ABSOLUTE LYMPHOCYTES (test code = 1067) 3.59 K/UL 1.00-4.00 ABSOLUTE MONOCYTES (test code = 1068) 0.46 K/UL 0.20-1.00 ABSOLUTE EOSINOPHILS (test code = 1040) 0.18 K/UL 0.00-0.50 ABSOLUTE BASOPHILS (test code = 1069) 0.05 K/UL 0.00-0.20 ABS IMMATURE GRANULOCYTES (test code = 1020) 0.01 K/UL 0.00-0.10 ABS NUCLEATED RBCS (test code = 08846) 0.00 K/UL 0.00-0.11 TSH, THIRD [id number] 00:00:00* Test Item Value Reference Range Interpretation Comme nts TSH, THIRD GENERATION (test code = 2821) 3.200 UIU/ML Topher Tutu AustinHEMOGLOBIN [id number] 00:00:00* Test Item Value Reference Range Interpretation Comme nts HEMOGLOBIN A1c (test code = 75223) 6.1 % Topher BrownCBC W/AUTO [id number] 00:00:00* Test Item Value Reference Range Interpretation Comme nts WBC (test code = 1001) 7.8 K/UL RBC (test code = 1002) 5.21 M/UL HEMOGLOBIN (test code = 1003) 14.5 G/DL HEMATOCRIT (test code = 1004) 43.6 % MCV (test code = 1005) 83.7 fL MCH (test code = 1006) 27.8 PG MCHC (test code = 1007) 33.3 G/DL RDW (test code = 1038) 14.0 % NEUTROPHILS (test code = 1008) 45.0 % LYMPHOCYTES (test code = 1010) 46.1 % MONOCYTES (test code = 1011) 5.9 % EOSINOPHILS (test code = 1012) 2.3 % BASOPHILS (test code = 1013) 0.6 % IMMATURE GRANULOCYTES (test code = 1036) 0.1 % NUCLEATED RBCS (test code = 1065) 0.0 /100WBC'S PLATELET COUNT (test code = 1015) 404 K/UL ABSOLUTE NEUTROPHILS (test c ode = 1066) 3.50 K/UL ABSOLUTE LYMPHOCYTES (test c ode = 1067) 3.59 K/UL ABSOLUTE MONOCYTES (test cod e = 1068) 0.46 K/UL ABSOLUTE EOSINOPHILS (test c ode = 1040) 0.18 K/UL ABSOLUTE BASOPHILS (test cod e = 1069) 0.05 K/UL ABS IMMATURE GRANULOCYTES (t est code = 1020) 0.01 K/UL ABS NUCLEATED RBCS (test cod e = 62861) 0.00 K/UL Topher BrownCOMPREHENSIVE METABOLIC [id number] 00:00:00* Test Item Value Reference Range Interpretation Comme nts GLUCOSE (test code = 2217) 182 MG/DL BUN (test code = 2208) 4 MG/DL CREATININE (test code = 2214) 0.65 MG/DL eGFR (2020 CKD-EPI) (test co de = 65256) 96 ML/MIN/1.73 CALC BUN/CREAT (test code = 2235) 6 RATIO SODIUM (test code = 2231) 144 MEQ/L POTASSIUM (test code = 2228) 3.3 MEQ/L CHLORIDE (test code = 2215) 104 MEQ/L CARBON DIOXIDE (test code = 2206) 23 MEQ/L CALCIUM (test code = 2209) 9.9 MG/DL PROTEIN, TOTAL (test code = 2229) 7.2 G/DL ALBUMIN (test code = 2201) 4.7 G/DL CALC GLOBULIN (test code = 2240) 2.5 G/DL CALC A/G RATIO (test code = 2234) 1.9 RATIO BILIRUBIN, TOTAL (test code = 2207) 0.3 MG/DL ALKALINE PHOSPHATASE (test code = 2204) 116 U/L AST (test code = 2218) 10 U/L ALT (test code = 2219) 7 U/L Topher BrownHEMOGLOBIN [id number] 00:00:00* Test Item Value Reference Range Interpretation Comme nts HEMOGLOBIN A1c (test code = 81707) 6.1 % Topher BrownLIPID [id number] 00:00:00* Test Item Value Reference Range Interpretation Comme nts CHOLESTEROL (test code = 2210) 137 MG/DL TRIGLYCERIDES (test code = 2232) 159 MG/DL HDL CHOLESTEROL (test code = 2220) 38 MG/DL CALC LDL CHOL (test code = 2237) 75 MG/DL RISK RATIO LDL/HDL (test cod e = 2238) 1.97 RATIO Topher BrownTSH, THIRD [id number] 00:00:00* Test Item Value Reference Range Interpretation Comme nts TSH, THIRD GENERATION (test code = 2821) 3.200 UIU/ML Topher BrownHEMOGLOBIN [id number] 00:00:00* Test Item Value Reference Range Interpretation Comme nts HEMOGLOBIN A1c (test code = 16597) 6.1 % Topher BrownCBC W/AUTO [id number] 00:00:00* Test Item Value Reference Range Interpretation Comme nts WBC (test code = 1001) 7.8 K/UL RBC (test code = 1002) 5.21 M/UL HEMOGLOBIN (test code = 1003) 14.5 G/DL HEMATOCRIT (test code = 1004) 43.6 % MCV (test code = 1005) 83.7 fL MCH (test code = 1006) 27.8 PG MCHC (test code = 1007) 33.3 G/DL RDW (test code = 1038) 14.0 % NEUTROPHILS (test code = 1008) 45.0 % LYMPHOCYTES (test code = 1010) 46.1 % MONOCYTES (test code = 1011) 5.9 % EOSINOPHILS (test code = 1012) 2.3 % BASOPHILS (test code = 1013) 0.6 % IMMATURE GRANULOCYTES (test code = 1036) 0.1 % NUCLEATED RBCS (test code = 1065) 0.0 /100WBC'S PLATELET COUNT (test code = 1015) 404 K/UL ABSOLUTE NEUTROPHILS (test c ode = 1066) 3.50 K/UL ABSOLUTE LYMPHOCYTES (test c ode = 1067) 3.59 K/UL ABSOLUTE MONOCYTES (test cod e = 1068) 0.46 K/UL ABSOLUTE EOSINOPHILS (test c ode = 1040) 0.18 K/UL ABSOLUTE BASOPHILS (test cod e = 1069) 0.05 K/UL ABS IMMATURE GRANULOCYTES (t est code = 1020) 0.01 K/UL ABS NUCLEATED RBCS (test cod e = 06644) 0.00 K/UL Topher BrownCOMPREHENSIVE METABOLIC [id number] 00:00:00* Test Item Value Reference Range Interpretation Comme nts GLUCOSE (test code = 2217) 182 MG/DL BUN (test code = 2208) 4 MG/DL CREATININE (test code = 2214) 0.65 MG/DL eGFR (2020 CKD-EPI) (test co de = 38059) 96 ML/MIN/1.73 CALC BUN/CREAT (test code = 2235) 6 RATIO SODIUM (test code = 2231) 144 MEQ/L POTASSIUM (test code = 2228) 3.3 MEQ/L CHLORIDE (test code = 2215) 104 MEQ/L CARBON DIOXIDE (test code = 2206) 23 MEQ/L CALCIUM (test code = 2209) 9.9 MG/DL PROTEIN, TOTAL (test code = 2229) 7.2 G/DL ALBUMIN (test code = 2201) 4.7 G/DL CALC GLOBULIN (test code = 2240) 2.5 G/DL CALC A/G RATIO (test code = 2234) 1.9 RATIO BILIRUBIN, TOTAL (test code = 2207) 0.3 MG/DL ALKALINE PHOSPHATASE (test code = 2204) 116 U/L AST (test code = 2218) 10 U/L ALT (test code = 2219) 7 U/L Topher BrownLIPID [id number] 00:00:00* Test Item Value Reference Range Interpretation Comme nts CHOLESTEROL (test code = 2210) 137 MG/DL TRIGLYCERIDES (test code = 2232) 159 MG/DL HDL CHOLESTEROL (test code = 2220) 38 MG/DL CALC LDL CHOL (test code = 2237) 75 MG/DL RISK RATIO LDL/HDL (test cod e = 2238) 1.97 RATIO Tpoher BrownTSH, THIRD [id number] 00:00:00* Test Item Value Reference Range Interpretation Comme nts TSH, THIRD GENERATION (test code = 2821) 3.200 UIU/ML Topher BrownHEMOGLOBIN [id number] 00:00:00* Test Item Value Reference Range Interpretation Comme nts HEMOGLOBIN A1c (test code = 49072) 6.1 % Topher BrownCBC W/AUTO [id number] 00:00:00* Test Item Value Reference Range Interpretation Comme nts WBC (test code = 1001) 7.8 K/UL RBC (test code = 1002) 5.21 M/UL HEMOGLOBIN (test code = 1003) 14.5 G/DL HEMATOCRIT (test code = 1004) 43.6 % MCV (test code = 1005) 83.7 fL MCH (test code = 1006) 27.8 PG MCHC (test code = 1007) 33.3 G/DL RDW (test code = 1038) 14.0 % NEUTROPHILS (test code = 1008) 45.0 % LYMPHOCYTES (test code = 1010) 46.1 % MONOCYTES (test code = 1011) 5.9 % EOSINOPHILS (test code = 1012) 2.3 % BASOPHILS (test code = 1013) 0.6 % IMMATURE GRANULOCYTES (test code = 1036) 0.1 % NUCLEATED RBCS (test code = 1065) 0.0 /100WBC'S PLATELET COUNT (test code = 1015) 404 K/UL ABSOLUTE NEUTROPHILS (test c ode = 1066) 3.50 K/UL ABSOLUTE LYMPHOCYTES (test c ode = 1067) 3.59 K/UL ABSOLUTE MONOCYTES (test cod e = 1068) 0.46 K/UL ABSOLUTE EOSINOPHILS (test c ode = 1040) 0.18 K/UL ABSOLUTE BASOPHILS (test cod e = 1069) 0.05 K/UL ABS IMMATURE GRANULOCYTES (t est code = 1020) 0.01 K/UL ABS NUCLEATED RBCS (test cod e = 79796) 0.00 K/UL Topher BrownCBC W/AUTO [id number] 00:00:00* Test Item Value Reference Range Interpretation Comme nts WBC (test code = 1001) 7.8 K/UL RBC (test code = 1002) 5.21 M/UL HEMOGLOBIN (test code = 1003) 14.5 G/DL HEMATOCRIT (test code = 1004) 43.6 % MCV (test code = 1005) 83.7 fL MCH (test code = 1006) 27.8 PG MCHC (test code = 1007) 33.3 G/DL RDW (test code = 1038) 14.0 % NEUTROPHILS (test code = 1008) 45.0 % LYMPHOCYTES (test code = 1010) 46.1 % MONOCYTES (test code = 1011) 5.9 % EOSINOPHILS (test code = 1012) 2.3 % BASOPHILS (test code = 1013) 0.6 % IMMATURE GRANULOCYTES (test code = 1036) 0.1 % NUCLEATED RBCS (test code = 1065) 0.0 /100WBC'S PLATELET COUNT (test code = 1015) 404 K/UL ABSOLUTE NEUTROPHILS (test c ode = 1066) 3.50 K/UL ABSOLUTE LYMPHOCYTES (test c ode = 1067) 3.59 K/UL ABSOLUTE MONOCYTES (test cod e = 1068) 0.46 K/UL ABSOLUTE EOSINOPHILS (test c ode = 1040) 0.18 K/UL ABSOLUTE BASOPHILS (test cod e = 1069) 0.05 K/UL ABS IMMATURE GRANULOCYTES (t est code = 1020) 0.01 K/UL ABS NUCLEATED RBCS (test cod e = 69027) 0.00 K/UL Topher BrownCOMPREHENSIVE METABOLIC [id number] 00:00:00* Test Item Value Reference Range Interpretation Comme nts GLUCOSE (test code = 2217) 182 MG/DL BUN (test code = 2208) 4 MG/DL CREATININE (test code = 2214) 0.65 MG/DL eGFR (2020 CKD-EPI) (test co de = 75089) 96 ML/MIN/1.73 CALC BUN/CREAT (test code = 2235) 6 RATIO SODIUM (test code = 2231) 144 MEQ/L POTASSIUM (test code = 2228) 3.3 MEQ/L CHLORIDE (test code = 2215) 104 MEQ/L CARBON DIOXIDE (test code = 2206) 23 MEQ/L CALCIUM (test code = 2209) 9.9 MG/DL PROTEIN, TOTAL (test code = 2229) 7.2 G/DL ALBUMIN (test code = 2201) 4.7 G/DL CALC GLOBULIN (test code = 2240) 2.5 G/DL CALC A/G RATIO (test code = 2234) 1.9 RATIO BILIRUBIN, TOTAL (test code = 2207) 0.3 MG/DL ALKALINE PHOSPHATASE (test code = 2204) 116 U/L AST (test code = 2218) 10 U/L ALT (test code = 2219) 7 U/L Topher BrownLIPID [id number] 00:00:00* Test Item Value Reference Range Interpretation Comme nts CHOLESTEROL (test code = 2210) 137 MG/DL TRIGLYCERIDES (test code = 2232) 159 MG/DL HDL CHOLESTEROL (test code = 2220) 38 MG/DL CALC LDL CHOL (test code = 2237) 75 MG/DL RISK RATIO LDL/HDL (test cod e = 2238) 1.97 RATIO Topher BrownTSH, THIRD [id number] 00:00:00* Test Item Value Reference Range Interpretation Comme [facility] TSH, THIRD GENERATION (test code = 2821) 3.200 UIU/ML Topher BrownHEMOGLOBIN [id number] 00:00:00* Test Item Value Reference Range Interpretation Comme nts HEMOGLOBIN A1c (test code = 81438) 6.1 % Topher BrownCBC W/AUTO [id number] 00:00:00* Test Item Value Reference Range Interpretation Comme nts WBC (test code = 1001) 7.8 K/UL RBC (test code = 1002) 5.21 M/UL HEMOGLOBIN (test code = 1003) 14.5 G/DL HEMATOCRIT (test code = 1004) 43.6 % MCV (test code = 1005) 83.7 fL MCH (test code = 1006) 27.8 PG MCHC (test code = 1007) 33.3 G/DL RDW (test code = 1038) 14.0 % NEUTROPHILS (test code = 1008) 45.0 % LYMPHOCYTES (test code = 1010) 46.1 % MONOCYTES (test code = 1011) 5.9 % EOSINOPHILS (test code = 1012) 2.3 % BASOPHILS (test code = 1013) 0.6 % IMMATURE GRANULOCYTES (test code = 1036) 0.1 % NUCLEATED RBCS (test code = 1065) 0.0 /100WBC'S PLATELET COUNT (test code = 1015) 404 K/UL ABSOLUTE NEUTROPHILS (test c ode = 1066) 3.50 K/UL ABSOLUTE LYMPHOCYTES (test c ode = 1067) 3.59 K/UL ABSOLUTE MONOCYTES (test cod e = 1068) 0.46 K/UL ABSOLUTE EOSINOPHILS (test c ode = 1040) 0.18 K/UL ABSOLUTE BASOPHILS (test cod e = 1069) 0.05 K/UL ABS IMMATURE GRANULOCYTES (t est code = 1020) 0.01 K/UL ABS NUCLEATED RBCS (test cod e = 69201) 0.00 K/UL Topher BrownCOMPREHENSIVE METABOLIC [id number] 00:00:00* Test Item Value Reference Range Interpretation Comme nts GLUCOSE (test code = 2217) 182 MG/DL BUN (test code = 2208) 4 MG/DL CREATININE (test code = 2214) 0.65 MG/DL eGFR (2020 CKD-EPI) (test co de = 68210) 96 ML/MIN/1.73 CALC BUN/CREAT (test code = 2235) 6 RATIO SODIUM (test code = 2231) 144 MEQ/L POTASSIUM (test code = 2228) 3.3 MEQ/L CHLORIDE (test code = 2215) 104 MEQ/L CARBON DIOXIDE (test code = 2206) 23 MEQ/L CALCIUM (test code = 2209) 9.9 MG/DL PROTEIN, TOTAL (test code = 2229) 7.2 G/DL ALBUMIN (test code = 2201) 4.7 G/DL CALC GLOBULIN (test code = 2240) 2.5 G/DL CALC A/G RATIO (test code = 2234) 1.9 RATIO BILIRUBIN, TOTAL (test code = 2207) 0.3 MG/DL ALKALINE PHOSPHATASE (test code = 2204) 116 U/L AST (test code = 2218) 10 U/L ALT (test code = 2219) 7 U/L Topher BrownCOMPREHENSIVE METABOLIC [id number] 00:00:00* Test Item Value Reference Range Interpretation Comme nts GLUCOSE (test code = 2217) 182 MG/DL BUN (test code = 2208) 4 MG/DL CREATININE (test code = 2214) 0.65 MG/DL eGFR (2020 CKD-EPI) (test co de = 33306) 96 ML/MIN/1.73 CALC BUN/CREAT (test code = 2235) 6 RATIO SODIUM (test code = 2231) 144 MEQ/L POTASSIUM (test code = 2228) 3.3 MEQ/L CHLORIDE (test code = 2215) 104 MEQ/L CARBON DIOXIDE (test code = 2206) 23 MEQ/L CALCIUM (test code = 2209) 9.9 MG/DL PROTEIN, TOTAL (test code = 2229) 7.2 G/DL ALBUMIN (test code = 2201) 4.7 G/DL CALC GLOBULIN (test code = 2240) 2.5 G/DL CALC A/G RATIO (test code = 2234) 1.9 RATIO BILIRUBIN, TOTAL (test code = 2207) 0.3 MG/DL ALKALINE PHOSPHATASE (test code = 2204) 116 U/L AST (test code = 2218) 10 U/L ALT (test code = 2219) 7 U/L Topher BrownLIPID [id number] 00:00:00* Test Item Value Reference Range Interpretation Comme nts CHOLESTEROL (test code = 2210) 137 MG/DL TRIGLYCERIDES (test code = 2232) 159 MG/DL HDL CHOLESTEROL (test code = 2220) 38 MG/DL CALC LDL CHOL (test code = 2237) 75 MG/DL RISK RATIO LDL/HDL (test cod e = 2238) 1.97 RATIO Topher Cam KevinTSH, THIRD [id number] 00:00:00* Test Item Value Reference Range Interpretation Comme nts TSH, THIRD GENERATION (test code = 2821) 3.200 UIU/ML Topher BrownLIPID [id number] 00:00:00* Test Item Value Reference Range Interpretation Comme nts CHOLESTEROL (test code = 2210) 137 MG/DL TRIGLYCERIDES (test code = 2232) 159 MG/DL HDL CHOLESTEROL (test code = 2220) 38 MG/DL CALC LDL CHOL (test code = 2237) 75 MG/DL RISK RATIO LDL/HDL (test cod e = 2238) 1.97 RATIO Topher Willams, THIRD [id number] 00:00:00* Test Item Value Reference Range Interpretation Comme nts TSH, THIRD GENERATION (test code = 2821) 3.200 UIU/ML Topher BrownHEMOGLOBIN [id number] 00:00:00* Test Item Value Reference Range Interpretation Comme nts HEMOGLOBIN A1c (test code = 96061) 6.1 % Topher BrownCBC W/AUTO [id number] 00:00:00* Test Item Value Reference Range Interpretation Comme nts WBC (test code = 1001) 7.8 K/UL RBC (test code = 1002) 5.21 M/UL HEMOGLOBIN (test code = 1003) 14.5 G/DL HEMATOCRIT (test code = 1004) 43.6 % MCV (test code = 1005) 83.7 fL MCH (test code = 1006) 27.8 PG MCHC (test code = 1007) 33.3 G/DL RDW (test code = 1038) 14.0 % NEUTROPHILS (test code = 1008) 45.0 % LYMPHOCYTES (test code = 1010) 46.1 % MONOCYTES (test code = 1011) 5.9 % EOSINOPHILS (test code = 1012) 2.3 % BASOPHILS (test code = 1013) 0.6 % IMMATURE GRANULOCYTES (test code = 1036) 0.1 % NUCLEATED RBCS (test code = 1065) 0.0 /100WBC'S PLATELET COUNT (test code = 1015) 404 K/UL ABSOLUTE NEUTROPHILS (test c ode = 1066) 3.50 K/UL ABSOLUTE LYMPHOCYTES (test c ode = 1067) 3.59 K/UL ABSOLUTE MONOCYTES (test cod e = 1068) 0.46 K/UL ABSOLUTE EOSINOPHILS (test c ode = 1040) 0.18 K/UL ABSOLUTE BASOPHILS (test cod e = 1069) 0.05 K/UL ABS IMMATURE GRANULOCYTES (t est code = 1020) 0.01 K/UL ABS NUCLEATED RBCS (test cod e = 71839) 0.00 K/UL Topher BrownCOMPREHENSIVE METABOLIC [id number] 00:00:00* Test Item Value Reference Range Interpretation Comme nts GLUCOSE (test code = 2217) 182 MG/DL BUN (test code = 2208) 4 MG/DL CREATININE (test code = 2214) 0.65 MG/DL eGFR (2020 CKD-EPI) (test co de = 11247) 96 ML/MIN/1.73 CALC BUN/CREAT (test code = 2235) 6 RATIO SODIUM (test code = 2231) 144 MEQ/L POTASSIUM (test code = 2228) 3.3 MEQ/L CHLORIDE (test code = 2215) 104 MEQ/L CARBON DIOXIDE (test code = 2206) 23 MEQ/L CALCIUM (test code = 2209) 9.9 MG/DL PROTEIN, TOTAL (test code = 2229) 7.2 G/DL ALBUMIN (test code = 2201) 4.7 G/DL CALC GLOBULIN (test code = 2240) 2.5 G/DL CALC A/G RATIO (test code = 2234) 1.9 RATIO BILIRUBIN, TOTAL (test code = 2207) 0.3 MG/DL ALKALINE PHOSPHATASE (test code = 2204) 116 U/L AST (test code = 2218) 10 U/L ALT (test code = 2219) 7 U/L Topher BrownLIPID [id number] 00:00:00* Test Item Value Reference Range Interpretation Comme nts CHOLESTEROL (test code = 2210) 137 MG/DL TRIGLYCERIDES (test code = 2232) 159 MG/DL HDL CHOLESTEROL (test code = 2220) 38 MG/DL CALC LDL CHOL (test code = 2237) 75 MG/DL RISK RATIO LDL/HDL (test cod e = 2238) 1.97 RATIO Topher BrownTSH, THIRD [id number] 00:00:00* Test Item Value Reference Range Interpretation Comme kimberley TSH, THIRD GENERATION (test code = 2821) 3.200 UIU/ML Topher BrownHEMOGLOBIN [id number] 00:00:00* Test Item Value Reference Range Interpretation Comme nts HEMOGLOBIN A1c (test code = 90742) 6.1 % Topher BrownCBC W/AUTO [id number] 00:00:00* Test Item Value Reference Range Interpretation Comme nts WBC (test code = 1001) 7.8 K/UL RBC (test code = 1002) 5.21 M/UL HEMOGLOBIN (test code = 1003) 14.5 G/DL HEMATOCRIT (test code = 1004) 43.6 % MCV (test code = 1005) 83.7 fL MCH (test code = 1006) 27.8 PG MCHC (test code = 1007) 33.3 G/DL RDW (test code = 1038) 14.0 % NEUTROPHILS (test code = 1008) 45.0 % LYMPHOCYTES (test code = 1010) 46.1 % MONOCYTES (test code = 1011) 5.9 % EOSINOPHILS (test code = 1012) 2.3 % BASOPHILS (test code = 1013) 0.6 % IMMATURE GRANULOCYTES (test code = 1036) 0.1 % NUCLEATED RBCS (test code = 1065) 0.0 /100WBC'S PLATELET COUNT (test code = 1015) 404 K/UL ABSOLUTE NEUTROPHILS (test c ode = 1066) 3.50 K/UL ABSOLUTE LYMPHOCYTES (test c ode = 1067) 3.59 K/UL ABSOLUTE MONOCYTES (test cod e = 1068) 0.46 K/UL ABSOLUTE EOSINOPHILS (test c ode = 1040) 0.18 K/UL ABSOLUTE BASOPHILS (test cod e = 1069) 0.05 K/UL ABS IMMATURE GRANULOCYTES (t est code = 1020) 0.01 K/UL ABS NUCLEATED RBCS (test cod e = 93106) 0.00 K/UL Topher F AustinCOMPREHENSIVE METABOLIC [id number] 00:00:00* Test Item Value Reference Range Interpretation Comme nts GLUCOSE (test code = 2217) 182 MG/DL BUN (test code = 2208) 4 MG/DL CREATININE (test code = 2214) 0.65 MG/DL eGFR (2020 CKD-EPI) (test co de = 31247) 96 ML/MIN/1.73 CALC BUN/CREAT (test code = 2235) 6 RATIO SODIUM (test code = 2231) 144 MEQ/L POTASSIUM (test code = 2228) 3.3 MEQ/L CHLORIDE (test code = 2215) 104 MEQ/L CARBON DIOXIDE (test code = 2206) 23 MEQ/L CALCIUM (test code = 2209) 9.9 MG/DL PROTEIN, TOTAL (test code = 2229) 7.2 G/DL ALBUMIN (test code = 2201) 4.7 G/DL CALC GLOBULIN (test code = 2240) 2.5 G/DL CALC A/G RATIO (test code = 2234) 1.9 RATIO BILIRUBIN, TOTAL (test code = 2207) 0.3 MG/DL ALKALINE PHOSPHATASE (test code = 2204) 116 U/L AST (test code = 2218) 10 U/L ALT (test code = 2219) 7 U/L Topher BrownLIPID [id number] 00:00:00* Test Item Value Reference Range Interpretation Comme nts CHOLESTEROL (test code = 2210) 137 MG/DL TRIGLYCERIDES (test code = 2232) 159 MG/DL HDL CHOLESTEROL (test code = 2220) 38 MG/DL CALC LDL CHOL (test code = 2237) 75 MG/DL RISK RATIO LDL/HDL (test cod e = 2238) 1.97 RATIO Topher BrownTSH, THIRD [id number] 00:00:00* Test Item Value Reference Range Interpretation Comme nts TSH, THIRD GENERATION (test code = 2821) 3.200 UIU/ML Topher BrownHEMOGLOBIN [id number] 00:00:00* Test Item Value Reference Range Interpretation Comme nts HEMOGLOBIN A1c (test code = 65892) 6.1 % Topher BrownCBC W/AUTO [id number] 00:00:00* Test Item Value Reference Range Interpretation Comme nts WBC (test code = 1001) 7.8 K/UL RBC (test code = 1002) 5.21 M/UL HEMOGLOBIN (test code = 1003) 14.5 G/DL HEMATOCRIT (test code = 1004) 43.6 % MCV (test code = 1005) 83.7 fL MCH (test code = 1006) 27.8 PG MCHC (test code = 1007) 33.3 G/DL RDW (test code = 1038) 14.0 % NEUTROPHILS (test code = 1008) 45.0 % LYMPHOCYTES (test code = 1010) 46.1 % MONOCYTES (test code = 1011) 5.9 % EOSINOPHILS (test code = 1012) 2.3 % BASOPHILS (test code = 1013) 0.6 % IMMATURE GRANULOCYTES (test code = 1036) 0.1 % NUCLEATED RBCS (test code = 1065) 0.0 /100WBC'S PLATELET COUNT (test code = 1015) 404 K/UL ABSOLUTE NEUTROPHILS (test c ode = 1066) 3.50 K/UL ABSOLUTE LYMPHOCYTES (test c ode = 1067) 3.59 K/UL ABSOLUTE MONOCYTES (test cod e = 1068) 0.46 K/UL ABSOLUTE EOSINOPHILS (test c ode = 1040) 0.18 K/UL ABSOLUTE BASOPHILS (test cod e = 1069) 0.05 K/UL ABS IMMATURE GRANULOCYTES (t est code = 1020) 0.01 K/UL ABS NUCLEATED RBCS (test cod e = 58599) 0.00 K/UL Topher F KevinCOMPREHENSIVE METABOLIC [id number] 00:00:00* Test Item Value Reference Range Interpretation Comme nts GLUCOSE (test code = 2217) 182 MG/DL BUN (test code = 2208) 4 MG/DL CREATININE (test code = 2214) 0.65 MG/DL eGFR (2020 CKD-EPI) (test co de = 25901) 96 ML/MIN/1.73 CALC BUN/CREAT (test code = 2235) 6 RATIO SODIUM (test code = 2231) 144 MEQ/L POTASSIUM (test code = 2228) 3.3 MEQ/L CHLORIDE (test code = 2215) 104 MEQ/L CARBON DIOXIDE (test code = 2206) 23 MEQ/L CALCIUM (test code = 2209) 9.9 MG/DL PROTEIN, TOTAL (test code = 2229) 7.2 G/DL ALBUMIN (test code = 2201) 4.7 G/DL CALC GLOBULIN (test code = 2240) 2.5 G/DL CALC A/G RATIO (test code = 2234) 1.9 RATIO BILIRUBIN, TOTAL (test code = 2207) 0.3 MG/DL ALKALINE PHOSPHATASE (test code = 2204) 116 U/L AST (test code = 2218) 10 U/L ALT (test code = 2219) 7 U/L Topher Cam AustinLIPID [id number] 00:00:00* Test Item Value Reference Range Interpretation Comme nts CHOLESTEROL (test code = 2210) 137 MG/DL TRIGLYCERIDES (test code = 2232) 159 MG/DL HDL CHOLESTEROL (test code = 2220) 38 MG/DL CALC LDL CHOL (test code = 2237) 75 MG/DL RISK RATIO LDL/HDL (test cod e = 2238) 1.97 RATIO Topher Willams, THIRD [id number] 00:00:00* Test Item Value Reference Range Interpretation Comme nts TSH, THIRD GENERATION (test code = 2821) 3.200 UIU/ML Topher BrownHEMOGLOBIN [id number] 00:00:00* Test Item Value Reference Range Interpretation Comme nts HEMOGLOBIN A1c (test code = 54328) 6.1 % Topher BrownCBC W/AUTO [id number] 00:00:00* Test Item Value Reference Range Interpretation Comme nts WBC (test code = 1001) 7.8 K/UL RBC (test code = 1002) 5.21 M/UL HEMOGLOBIN (test code = 1003) 14.5 G/DL HEMATOCRIT (test code = 1004) 43.6 % MCV (test code = 1005) 83.7 fL MCH (test code = 1006) 27.8 PG MCHC (test code = 1007) 33.3 G/DL RDW (test code = 1038) 14.0 % NEUTROPHILS (test code = 1008) 45.0 % LYMPHOCYTES (test code = 1010) 46.1 % MONOCYTES (test code = 1011) 5.9 % EOSINOPHILS (test code = 1012) 2.3 % BASOPHILS (test code = 1013) 0.6 % IMMATURE GRANULOCYTES (test code = 1036) 0.1 % NUCLEATED RBCS (test code = 1065) 0.0 /100WBC'S PLATELET COUNT (test code = 1015) 404 K/UL ABSOLUTE NEUTROPHILS (test c ode = 1066) 3.50 K/UL ABSOLUTE LYMPHOCYTES (test c ode = 1067) 3.59 K/UL ABSOLUTE MONOCYTES (test cod e = 1068) 0.46 K/UL ABSOLUTE EOSINOPHILS (test c ode = 1040) 0.18 K/UL ABSOLUTE BASOPHILS (test cod e = 1069) 0.05 K/UL ABS IMMATURE GRANULOCYTES (t est code = 1020) 0.01 K/UL ABS NUCLEATED RBCS (test cod e = 67984) 0.00 K/UL Topher BrownCOMPREHENSIVE METABOLIC [id number] 00:00:00* Test Item Value Reference Range Interpretation Comme nts GLUCOSE (test code = 2217) 182 MG/DL BUN (test code = 2208) 4 MG/DL CREATININE (test code = 2214) 0.65 MG/DL eGFR (2020 CKD-EPI) (test co de = 85731) 96 ML/MIN/1.73 CALC BUN/CREAT (test code = 2235) 6 RATIO SODIUM (test code = 2231) 144 MEQ/L POTASSIUM (test code = 2228) 3.3 MEQ/L CHLORIDE (test code = 2215) 104 MEQ/L CARBON DIOXIDE (test code = 2206) 23 MEQ/L CALCIUM (test code = 2209) 9.9 MG/DL PROTEIN, TOTAL (test code = 2229) 7.2 G/DL ALBUMIN (test code = 2201) 4.7 G/DL CALC GLOBULIN (test code = 2240) 2.5 G/DL CALC A/G RATIO (test code = 2234) 1.9 RATIO BILIRUBIN, TOTAL (test code = 2207) 0.3 MG/DL ALKALINE PHOSPHATASE (test code = 2204) 116 U/L AST (test code = 2218) 10 U/L ALT (test code = 2219) 7 U/L Topher BrownLIPID [id number] 00:00:00* Test Item Value Reference Range Interpretation Comme nts CHOLESTEROL (test code = 2210) 137 MG/DL TRIGLYCERIDES (test code = 2232) 159 MG/DL HDL CHOLESTEROL (test code = 2220) 38 MG/DL CALC LDL CHOL (test code = 2237) 75 MG/DL RISK RATIO LDL/HDL (test cod e = 2238) 1.97 RATIO Topher BrownSCR MAMM BILATERAL SOCORRO CAD [id number] 08:31:52 Name: Sharmila : 1955 Sex: F - SCR MAMM BILATERAL SOC[place]RO CAD DIGITALBILATERAL DIGITAL SCREENING MAMMOGRAM 3D/2D WITH CAD: 2CLINICAL: Asymptomatic. Digital breast tomosynthesis was performed in addition to routine CC and MLO views. Current mammographic images were evaluated by [employer] CAD (computer-aided detection) software. No prior exams were available for comparison. The tissue of both breasts is heterogeneously dense. This may lower the sensitivity of mammography. There is a benign intramammary node in the left breast. There also are benign lymph nodes in the left breast. Additionally, there are benign calcifications in both breasts. Additionally, there also are benign vascular calcifications in the right breast. No suspicious mass, architectural distortion, malignant type calcification, or lymph node abnormality detected. IMPRESSION: BENIGNThere is no mammographic evidence of malignancy. Resume annual screening mammography in one year. (03/26/2023) Kristen Fontaine M.D. scg/penrad:03/28/2022 08:31:52 Map And Chart Mounter: Zulma Stauffer MM, [facility] Mammographyletter sent: BIRADS 1-2 Normal Mammogram BI-RADS: 2 BenignVITAMIN D, 25 [id number] 05:46:40* Test Item Value Reference Range Interpretation Comme nts VITAMIN D, 25 OH (test code = 4958) 15 NG/ML SEE BELOW L NOTE: 25-HYDR OXYVITAMIN D ASSAY INCLUDES 25-HYDROXYVITAMIN D2 AND D3. METHODOLOGY IS CHEMILUMINESCENT IMMUNOASSAY. INTERPRETIVE RANGES PEDIATRIC (<17 YEARS) . . . . . . . . . . . NG/ML 20-100ADULT: INSUFFICIENT . . . . . . . . . . . . . . NG/ML <20 SUBOPTIMAL . . . . . . . . . . . . . . . NG/ML 20-29 OPTIMAL . . . . . . . . . . . . . . . . . NG/ML 30-100 UNLESS OTHERWISE INDICATED, ALL TESTING PERFORMED [facility] [address] [place] [id number] MONUMENT INSTALLER: VERA MONTALVO M.D. CLIA NUMBER [id number] [facility] [place]. [id number] HEMOGLOBIN [id number] 04:40:09* Test Item Value Reference Range Interpretation Comme nts HEMOGLOBIN A1c (test code = 52497) 7.3 % 4.2-5.6 H [employer] GUIDELINES FOR HGB A1C: PREDIABETES/INCREASED RISK . . . . . . . 5.7-6.4% DIAGNOSIS OF DIABETES . . . . . . . . . >=6.5% WITH CONFIRMATION OR APPROPRIATE SYMPTOMS NOTE: ASSAY MAY BE AFFECTED BY HEMOGLOBINOPATHIES (SICKLE CELL ANEMIA, S-C DISEASE, OTHERS) OR ARTIFICIALLY LOWERED BY DECREASED RED CELL SURVIVAL (HEMOLYTIC ANEMIAS, BLOOD LOSS, ETC.). CONSIDER ALTERNATE TESTING OR LABORATORY CONSULTATION. CBC W/AUTO DIFF WITH [id number] 04:31:19* Test Item Value Reference Range Interpretation Comme nts WBC (test code = 1001) 14.3 K/UL 3.5-11.0 H RBC (test code = 1002) 4.96 M/UL 3.80-5.40 HEMOGLOBIN (test code = 1003) 13.8 G/DL 11.5-15.5 HEMATOCRIT (test code = 1004) 39.6 % 34.0-45.0 MCV (test code = 1005) 79.8 fL 80.0-99.0 L MCH (test code = 1006) 27.8 PG 25.0-33.0 MCHC (test code = 1007) 34.8 G/DL 31.0-36.0 RDW (test code = 1038) 14.7 % 11.5-15.0 NEUTROPHILS (test code = 1008) 45.1 % LYMPHOCYTES (test code = 1010) 45.8 % MONOCYTES (test code = 1011) 6.7 % EOSINOPHILS (test code = 1012) 1.5 % BASOPHILS (test code = 1013) 0.4 % IMMATURE GRANULOCYTES (test code = 1036) 0.5 % NUCLEATED RBCS (test code = 1065) 0.0 /100 WBC'S See_Comment [Automated schooxa ge] The system which generated this result transmitted reference range: 0.0. The reference range was not used to interpret this result as normal/abnormal. PLATELET COUNT (test code = 1015) 367 K/UL 130-400 ABSOLUTE NEUTROPHILS (test code = 1066) 6.42 K/UL 1.50-7.50 ABSOLUTE LYMPHOCYTES (test code = 1067) 6.53 K/UL 1.00-4.00 H ABSOLUTE MONOCYTES (test code = 1068) 0.96 K/UL 0.20-1.00 ABSOLUTE EOSINOPHILS (test code = 1040) 0.22 K/UL 0.00-0.50 ABSOLUTE BASOPHILS (test code = 1069) 0.06 K/UL 0.00-0.20 ABS IMMATURE GRANULOCYTES (test code = 1020) 0.07 K/UL 0.00-0.10 ABS NUCLEATED RBCS (test code = 26768) 0.00 K/UL 0.00-0.11 COMPREHENSIVE METABOLIC [id number] 04:01:18* Test Item Value Reference Range Interpretation Comme nts GLUCOSE (test code = 2217) 143 MG/DL 70-99 H BUN (test code = 2208) 8 MG/DL 8-23 CREATININE (test code = 2214) 0.83 MG/DL 0.60-1.30 eGFR (2020 CKD-EPI) (test code = 35267) 77 ML/MIN/1.73 >60 CALC BUN/CREAT (test code = 2235) 10 RATIO 6-28 SODIUM (test code = 223) 145 MEQ/L 133-146 POTASSIUM (test code = 2228) 3.1 MEQ/L 3.5-5.4 L CHLORIDE (test code = 2215) 103 MEQ/L 95-107 CARBON DIOXIDE (test code = 2206) 25 MEQ/L 19-31 CALCIUM (test code = 2209) 9.7 MG/DL 8.5-10.5 PROTEIN, TOTAL (test code = 222) 7.1 G/DL 6.1-8.3 ALBUMIN (test code = 2201) 4.3 G/DL 3.5-5.2 CALC GLOBULIN (test code = 2240) 2.8 G/DL 1.9-3.7 CALC A/G RATIO (test code = 2234) 1.5 RATIO 1.0-2.6 BILIRUBIN, TOTAL (test code = 2207) 0.3 MG/DL See_Comment [Automated me ssage] The system which generated this result transmitted reference range: <=1.2. The reference range was not used to interpret this result as normal/abnormal. ALKALINE PHOSPHATASE (test code = 2204) 90 U/L 40-142 AST (test code = 2218) 7 U/L 9-40 L ALT (test code = 2219) 6 U/L 5-40 LIPID [id number] 04:01:18* Test Item Value Reference Range Interpretation Comme nts CHOLESTEROL (test code = 2210) 186 MG/DL <200 TRIGLYCERIDES (test code = 2232) 392 MG/DL <150 H HDL CHOLESTEROL (test code = 2220) 38 MG/DL >39 L CALC LDL CHOL (test code = 2237) 96 MG/DL <100 NOTE: CALCULATED LDL IS BASED ON NURA-COWART METHOD WHICHINCLUDES ADJUSTABLE TRIGLYCERIDE:VLDL CHOLESTEROL RATIO.THIS FACTOR VARIES BY MEASURED TRIGLYCERIDE AND NON-HDLCHOLESTEROL CONCENTRATIONS WITH INCREASED CALCULATED LDL SEENIN HIGHER TRIGLYCERIDE OR LOWER NON-HDL SPECIMENS. FOR MOREINFORMATION, SEE CLIENT ANNOUNCEMENT AT [email or web address] RISK RATIO LDL/HDL (test code = 2238) 2.53 RATIO <3.22 VITAMIN D, 25 [id number] 00:00:00* Test Item Value Reference Range Interpretation Comme [facility] VITAMIN D, 25 OH (test code = 4958) 15 NG/ML Topher Cam AustinHEMOGLOBIN [id number] 00:00:00* Test Item Value Reference Range Interpretation Comme [facility] HEMOGLOBIN A1c (test code = 24849) 7.3 % Topher Cam AustinHEMOGLOBIN [id number] 00:00:00* Test Item Value Reference Range Interpretation Comme [facility] HEMOGLOBIN A1c (test code = 85509) 7.3 % Topher BrownCBC W/AUTO [id number] 00:00:00* Test Item Value Reference Range Interpretation Comme nts WBC (test code = 1001) 14.3 K/UL RBC (test code = 1002) 4.96 M/UL HEMOGLOBIN (test code = 1003) 13.8 G/DL HEMATOCRIT (test code = 1004) 39.6 % MCV (test code = 1005) 79.8 fL MCH (test code = 1006) 27.8 PG MCHC (test code = 1007) 34.8 G/DL RDW (test code = 1038) 14.7 % NEUTROPHILS (test code = 1008) 45.1 % LYMPHOCYTES (test code = 1010) 45.8 % MONOCYTES (test code = 1011) 6.7 % EOSINOPHILS (test code = 1012) 1.5 % BASOPHILS (test code = 1013) 0.4 % IMMATURE GRANULOCYTES (test code = 1036) 0.5 % NUCLEATED RBCS (test code = 1065) 0.0 /100WBC'S PLATELET COUNT (test code = 1015) 367 K/UL ABSOLUTE NEUTROPHILS (test c ode = 1066) 6.42 K/UL ABSOLUTE LYMPHOCYTES (test c ode = 1067) 6.53 K/UL ABSOLUTE MONOCYTES (test cod e = 1068) 0.96 K/UL ABSOLUTE EOSINOPHILS (test c ode = 1040) 0.22 K/UL ABSOLUTE BASOPHILS (test cod e = 1069) 0.06 K/UL ABS IMMATURE GRANULOCYTES (t est code = 1020) 0.07 K/UL ABS NUCLEATED RBCS (test cod e = 99867) 0.00 K/UL Topher BrownCOMPREHENSIVE METABOLIC [id number] 00:00:00* Test Item Value Reference Range Interpretation Comme nts GLUCOSE (test code = 2217) 143 MG/DL BUN (test code = 2208) 8 MG/DL CREATININE (test code = 2214) 0.83 MG/DL eGFR (2020 CKD-EPI) (test co de = 24661) 77 ML/MIN/1.73 CALC BUN/CREAT (test code = 2235) 10 RATIO SODIUM (test code = 2231) 145 MEQ/L POTASSIUM (test code = 2228) 3.1 MEQ/L CHLORIDE (test code = 2215) 103 MEQ/L CARBON DIOXIDE (test code = 2206) 25 MEQ/L CALCIUM (test code = 2209) 9.7 MG/DL PROTEIN, TOTAL (test code = 2229) 7.1 G/DL ALBUMIN (test code = 2201) 4.3 G/DL CALC GLOBULIN (test code = 2240) 2.8 G/DL CALC A/G RATIO (test code = 2234) 1.5 RATIO BILIRUBIN, TOTAL (test code = 2207) 0.3 MG/DL ALKALINE PHOSPHATASE (test code = 2204) 90 U/L AST (test code = 2218) 7 U/L ALT (test code = 2219) 6 U/L Topher F AustinHEMOGLOBIN [id number] 00:00:00* Test Item Value Reference Range Interpretation Comme nts HEMOGLOBIN A1c (test code = 26033) 7.3 % CBC W/AUTO [id number] 00:00:00* Test Item Value Reference Range Interpretation Comme nts WBC (test code = 1001) 14.3 K/UL RBC (test code = 1002) 4.96 M/UL HEMOGLOBIN (test code = 1003) 13.8 G/DL HEMATOCRIT (test code = 1004) 39.6 % MCV (test code = 1005) 79.8 fL MCH (test code = 1006) 27.8 PG MCHC (test code = 1007) 34.8 G/DL RDW (test code = 1038) 14.7 % NEUTROPHILS (test code = 1008) 45.1 % LYMPHOCYTES (test code = 1010) 45.8 % MONOCYTES (test code = 1011) 6.7 % EOSINOPHILS (test code = 1012) 1.5 % BASOPHILS (test code = 1013) 0.4 % IMMATURE GRANULOCYTES (test code = 1036) 0.5 % NUCLEATED RBCS (test code = 1065) 0.0 /100WBC'S PLATELET COUNT (test code = 1015) 367 K/UL ABSOLUTE NEUTROPHILS (test c ode = 1066) 6.42 K/UL ABSOLUTE LYMPHOCYTES (test c ode = 1067) 6.53 K/UL ABSOLUTE MONOCYTES (test cod e = 1068) 0.96 K/UL ABSOLUTE EOSINOPHILS (test c ode = 1040) 0.22 K/UL ABSOLUTE BASOPHILS (test cod e = 1069) 0.06 K/UL ABS IMMATURE GRANULOCYTES (t est code = 1020) 0.07 K/UL ABS NUCLEATED RBCS (test cod e = 39258) 0.00 K/UL COMPREHENSIVE METABOLIC [id number] 00:00:00* Test Item Value Reference Range Interpretation Comme nts GLUCOSE (test code = 2217) 143 MG/DL BUN (test code = 2208) 8 MG/DL CREATININE (test code = 2214) 0.83 MG/DL eGFR (2020 CKD-EPI) (test co de = 90114) 77 ML/MIN/1.73 CALC BUN/CREAT (test code = 2235) 10 RATIO SODIUM (test code = 2231) 145 MEQ/L POTASSIUM (test code = 2228) 3.1 MEQ/L CHLORIDE (test code = 2215) 103 MEQ/L CARBON DIOXIDE (test code = 2206) 25 MEQ/L CALCIUM (test code = 2209) 9.7 MG/DL PROTEIN, TOTAL (test code = 2229) 7.1 G/DL ALBUMIN (test code = 2201) 4.3 G/DL CALC GLOBULIN (test code = 2240) 2.8 G/DL CALC A/G RATIO (test code = 2234) 1.5 RATIO BILIRUBIN, TOTAL (test code = 2207) 0.3 MG/DL ALKALINE PHOSPHATASE (test code = 2204) 90 U/L AST (test code = 2218) 7 U/L ALT (test code = 2219) 6 U/L LIPID [id number] 00:00:00* Test Item Value Reference Range Interpretation Comme nts CHOLESTEROL (test code = 2210) 186 MG/DL TRIGLYCERIDES (test code = 2232) 392 MG/DL HDL CHOLESTEROL (test code = 2220) 38 MG/DL CALC LDL CHOL (test code = 2237) 96 MG/DL RISK RATIO LDL/HDL (test cod e = 2238) 2.53 RATIO VITAMIN D, 25 [id number] 00:00:00* Test Item Value Reference Range Interpretation Comme nts VITAMIN D, 25 OH (test code = 4958) 15 NG/ML LIPID [id number] 00:00:00* Test Item Value Reference Range Interpretation Comme nts CHOLESTEROL (test code = 2210) 186 MG/DL TRIGLYCERIDES (test code = 2232) 392 MG/DL HDL CHOLESTEROL (test code = 2220) 38 MG/DL CALC LDL CHOL (test code = 2237) 96 MG/DL RISK RATIO LDL/HDL (test cod e = 2238) 2.53 RATIO Topher BrownVITAMIN D, 25 [id number] 00:00:00* Test Item Value Reference Range Interpretation Comme [facility] VITAMIN D, 25 OH (test code = 4958) 15 NG/ML Topher BrownHEMOGLOBIN [id number] 00:00:00* Test Item Value Reference Range Interpretation Comme [facility] HEMOGLOBIN A1c (test code = 16636) 7.3 % Topher BrownCBC W/AUTO [id number] 00:00:00* Test Item Value Reference Range Interpretation Comme nts WBC (test code = 1001) 14.3 K/UL RBC (test code = 1002) 4.96 M/UL HEMOGLOBIN (test code = 1003) 13.8 G/DL HEMATOCRIT (test code = 1004) 39.6 % MCV (test code = 1005) 79.8 fL MCH (test code = 1006) 27.8 PG MCHC (test code = 1007) 34.8 G/DL RDW (test code = 1038) 14.7 % NEUTROPHILS (test code = 1008) 45.1 % LYMPHOCYTES (test code = 1010) 45.8 % MONOCYTES (test code = 1011) 6.7 % EOSINOPHILS (test code = 1012) 1.5 % BASOPHILS (test code = 1013) 0.4 % IMMATURE GRANULOCYTES (test code = 1036) 0.5 % NUCLEATED RBCS (test code = 1065) 0.0 /100WBC'S PLATELET COUNT (test code = 1015) 367 K/UL ABSOLUTE NEUTROPHILS (test c ode = 1066) 6.42 K/UL ABSOLUTE LYMPHOCYTES (test c ode = 1067) 6.53 K/UL ABSOLUTE MONOCYTES (test cod e = 1068) 0.96 K/UL ABSOLUTE EOSINOPHILS (test c ode = 1040) 0.22 K/UL ABSOLUTE BASOPHILS (test cod e = 1069) 0.06 K/UL ABS IMMATURE GRANULOCYTES (t est code = 1020) 0.07 K/UL ABS NUCLEATED RBCS (test cod e = 91401) 0.00 K/UL Topher F AustinCOMPREHENSIVE METABOLIC [id number] 00:00:00* Test Item Value Reference Range Interpretation Comme nts GLUCOSE (test code = 2217) 143 MG/DL BUN (test code = 2208) 8 MG/DL CREATININE (test code = 2214) 0.83 MG/DL eGFR (2020 CKD-EPI) (test co de = 96552) 77 ML/MIN/1.73 CALC BUN/CREAT (test code = 2235) 10 RATIO SODIUM (test code = 2231) 145 MEQ/L POTASSIUM (test code = 2228) 3.1 MEQ/L CHLORIDE (test code = 2215) 103 MEQ/L CARBON DIOXIDE (test code = 2206) 25 MEQ/L CALCIUM (test code = 2209) 9.7 MG/DL PROTEIN, TOTAL (test code = 2229) 7.1 G/DL ALBUMIN (test code = 2201) 4.3 G/DL CALC GLOBULIN (test code = 2240) 2.8 G/DL CALC A/G RATIO (test code = 2234) 1.5 RATIO BILIRUBIN, TOTAL (test code = 2207) 0.3 MG/DL ALKALINE PHOSPHATASE (test code = 2204) 90 U/L AST (test code = 2218) 7 U/L ALT (test code = 2219) 6 U/L Topher BrownLIPID [id number] 00:00:00* Test Item Value Reference Range Interpretation Comme nts CHOLESTEROL (test code = 2210) 186 MG/DL TRIGLYCERIDES (test code = 2232) 392 MG/DL HDL CHOLESTEROL (test code = 2220) 38 MG/DL CALC LDL CHOL (test code = 2237) 96 MG/DL RISK RATIO LDL/HDL (test cod e = 2238) 2.53 RATIO Topher BrownVITAMIN D, 25 [id number] 00:00:00* Test Item Value Reference Range Interpretation Comme [facility] VITAMIN D, 25 OH (test code = 4958) 15 NG/ML Topher BrownHEMOGLOBIN [id number] 00:00:00* Test Item Value Reference Range Interpretation Comme [facility] HEMOGLOBIN A1c (test code = 72555) 7.3 % Topher BrownCBC W/AUTO [id number] 00:00:00* Test Item Value Reference Range Interpretation Comme [facility] WBC (test code = 1001) 14.3 K/UL RBC (test code = 1002) 4.96 M/UL HEMOGLOBIN (test code = 1003) 13.8 G/DL HEMATOCRIT (test code = 1004) 39.6 % MCV (test code = 1005) 79.8 fL MCH (test code = 1006) 27.8 PG MCHC (test code = 1007) 34.8 G/DL RDW (test code = 1038) 14.7 % NEUTROPHILS (test code = 1008) 45.1 % LYMPHOCYTES (test code = 1010) 45.8 % MONOCYTES (test code = 1011) 6.7 % EOSINOPHILS (test code = 1012) 1.5 % BASOPHILS (test code = 1013) 0.4 % IMMATURE GRANULOCYTES (test code = 1036) 0.5 % NUCLEATED RBCS (test code = 1065) 0.0 /100WBC'S PLATELET COUNT (test code = 1015) 367 K/UL ABSOLUTE NEUTROPHILS (test c ode = 1066) 6.42 K/UL ABSOLUTE LYMPHOCYTES (test c ode = 1067) 6.53 K/UL ABSOLUTE MONOCYTES (test cod e = 1068) 0.96 K/UL ABSOLUTE EOSINOPHILS (test c ode = 1040) 0.22 K/UL ABSOLUTE BASOPHILS (test cod e = 1069) 0.06 K/UL ABS IMMATURE GRANULOCYTES (t est code = 1020) 0.07 K/UL ABS NUCLEATED RBCS (test cod e = 92993) 0.00 K/UL Topher BrownCOMPREHENSIVE METABOLIC [id number] 00:00:00* Test Item Value Reference Range Interpretation Comme nts GLUCOSE (test code = 2217) 143 MG/DL BUN (test code = 2208) 8 MG/DL CREATININE (test code = 2214) 0.83 MG/DL eGFR (2020 CKD-EPI) (test co de = 14464) 77 ML/MIN/1.73 CALC BUN/CREAT (test code = 2235) 10 RATIO SODIUM (test code = 2231) 145 MEQ/L POTASSIUM (test code = 2228) 3.1 MEQ/L CHLORIDE (test code = 2215) 103 MEQ/L CARBON DIOXIDE (test code = 2206) 25 MEQ/L CALCIUM (test code = 2209) 9.7 MG/DL PROTEIN, TOTAL (test code = 2229) 7.1 G/DL ALBUMIN (test code = 2201) 4.3 G/DL CALC GLOBULIN (test code = 2240) 2.8 G/DL CALC A/G RATIO (test code = 2234) 1.5 RATIO BILIRUBIN, TOTAL (test code = 2207) 0.3 MG/DL ALKALINE PHOSPHATASE (test code = 2204) 90 U/L AST (test code = 2218) 7 U/L ALT (test code = 2219) 6 U/L Topher Cam AustinLIPID [id number] 00:00:00* Test Item Value Reference Range Interpretation Comme nts CHOLESTEROL (test code = 2210) 186 MG/DL TRIGLYCERIDES (test code = 2232) 392 MG/DL HDL CHOLESTEROL (test code = 2220) 38 MG/DL CALC LDL CHOL (test code = 2237) 96 MG/DL RISK RATIO LDL/HDL (test cod e = 2238) 2.53 RATIO Topher BrownVITAMIN D, 25 [id number] 00:00:00* Test Item Value Reference Range Interpretation Comme nts VITAMIN D, 25 OH (test code = 4958) 15 NG/ML Topher BrownCBC W/AUTO [id number] 00:00:00* Test Item Value Reference Range Interpretation Comme nts WBC (test code = 1001) 14.3 K/UL RBC (test code = 1002) 4.96 M/UL HEMOGLOBIN (test code = 1003) 13.8 G/DL HEMATOCRIT (test code = 1004) 39.6 % MCV (test code = 1005) 79.8 fL MCH (test code = 1006) 27.8 PG MCHC (test code = 1007) 34.8 G/DL RDW (test code = 1038) 14.7 % NEUTROPHILS (test code = 1008) 45.1 % LYMPHOCYTES (test code = 1010) 45.8 % MONOCYTES (test code = 1011) 6.7 % EOSINOPHILS (test code = 1012) 1.5 % BASOPHILS (test code = 1013) 0.4 % IMMATURE GRANULOCYTES (test code = 1036) 0.5 % NUCLEATED RBCS (test code = 1065) 0.0 /100WBC'S PLATELET COUNT (test code = 1015) 367 K/UL ABSOLUTE NEUTROPHILS (test c ode = 1066) 6.42 K/UL ABSOLUTE LYMPHOCYTES (test c ode = 1067) 6.53 K/UL ABSOLUTE MONOCYTES (test cod e = 1068) 0.96 K/UL ABSOLUTE EOSINOPHILS (test c ode = 1040) 0.22 K/UL ABSOLUTE BASOPHILS (test cod e = 1069) 0.06 K/UL ABS IMMATURE GRANULOCYTES (t est code = 1020) 0.07 K/UL ABS NUCLEATED RBCS (test cod e = 51178) 0.00 K/UL Topher BrownHEMOGLOBIN [id number] 00:00:00* Test Item Value Reference Range Interpretation Comme nts HEMOGLOBIN A1c (test code = 13970) 7.3 % Topher BrownCOMPREHENSIVE METABOLIC [id number] 00:00:00* Test Item Value Reference Range Interpretation Comme nts GLUCOSE (test code = 2217) 143 MG/DL BUN (test code = 2208) 8 MG/DL CREATININE (test code = 2214) 0.83 MG/DL eGFR (2020 CKD-EPI) (test co de = 90774) 77 ML/MIN/1.73 CALC BUN/CREAT (test code = 2235) 10 RATIO SODIUM (test code = 2231) 145 MEQ/L POTASSIUM (test code = 2228) 3.1 MEQ/L CHLORIDE (test code = 2215) 103 MEQ/L CARBON DIOXIDE (test code = 2206) 25 MEQ/L CALCIUM (test code = 2209) 9.7 MG/DL PROTEIN, TOTAL (test code = 2229) 7.1 G/DL ALBUMIN (test code = 2201) 4.3 G/DL CALC GLOBULIN (test code = 2240) 2.8 G/DL CALC A/G RATIO (test code = 2234) 1.5 RATIO BILIRUBIN, TOTAL (test code = 2207) 0.3 MG/DL ALKALINE PHOSPHATASE (test code = 2204) 90 U/L AST (test code = 2218) 7 U/L ALT (test code = 2219) 6 U/L Topher Cam KevinCBC W/AUTO [id number] 00:00:00* Test Item Value Reference Range Interpretation Comme nts WBC (test code = 1001) 14.3 K/UL RBC (test code = 1002) 4.96 M/UL HEMOGLOBIN (test code = 1003) 13.8 G/DL HEMATOCRIT (test code = 1004) 39.6 % MCV (test code = 1005) 79.8 fL MCH (test code = 1006) 27.8 PG MCHC (test code = 1007) 34.8 G/DL RDW (test code = 1038) 14.7 % NEUTROPHILS (test code = 1008) 45.1 % LYMPHOCYTES (test code = 1010) 45.8 % MONOCYTES (test code = 1011) 6.7 % EOSINOPHILS (test code = 1012) 1.5 % BASOPHILS (test code = 1013) 0.4 % IMMATURE GRANULOCYTES (test code = 1036) 0.5 % NUCLEATED RBCS (test code = 1065) 0.0 /100WBC'S PLATELET COUNT (test code = 1015) 367 K/UL ABSOLUTE NEUTROPHILS (test c ode = 1066) 6.42 K/UL ABSOLUTE LYMPHOCYTES (test c ode = 1067) 6.53 K/UL ABSOLUTE MONOCYTES (test cod e = 1068) 0.96 K/UL ABSOLUTE EOSINOPHILS (test c ode = 1040) 0.22 K/UL ABSOLUTE BASOPHILS (test cod e = 1069) 0.06 K/UL ABS IMMATURE GRANULOCYTES (t est code = 1020) 0.07 K/UL ABS NUCLEATED RBCS (test cod e = 94243) 0.00 K/UL Topher BrownCOMPREHENSIVE METABOLIC [id number] 00:00:00* Test Item Value Reference Range Interpretation Comme nts GLUCOSE (test code = 2217) 143 MG/DL BUN (test code = 2208) 8 MG/DL CREATININE (test code = 2214) 0.83 MG/DL eGFR (2020 CKD-EPI) (test co de = 57320) 77 ML/MIN/1.73 CALC BUN/CREAT (test code = 2235) 10 RATIO SODIUM (test code = 2231) 145 MEQ/L POTASSIUM (test code = 2228) 3.1 MEQ/L CHLORIDE (test code = 2215) 103 MEQ/L CARBON DIOXIDE (test code = 2206) 25 MEQ/L CALCIUM (test code = 2209) 9.7 MG/DL PROTEIN, TOTAL (test code = 2229) 7.1 G/DL ALBUMIN (test code = 2201) 4.3 G/DL CALC GLOBULIN (test code = 2240) 2.8 G/DL CALC A/G RATIO (test code = 2234) 1.5 RATIO BILIRUBIN, TOTAL (test code = 2207) 0.3 MG/DL ALKALINE PHOSPHATASE (test code = 2204) 90 U/L AST (test code = 2218) 7 U/L ALT (test code = 2219) 6 U/L Topher BrownLIPID [id number] 00:00:00* Test Item Value Reference Range Interpretation Comme nts CHOLESTEROL (test code = 2210) 186 MG/DL TRIGLYCERIDES (test code = 2232) 392 MG/DL HDL CHOLESTEROL (test code = 2220) 38 MG/DL CALC LDL CHOL (test code = 2237) 96 MG/DL RISK RATIO LDL/HDL (test cod e = 2238) 2.53 RATIO Topher BrownVITAMIN D, 25 [id number] 00:00:00* Test Item Value Reference Range Interpretation Comme [facility] VITAMIN D, 25 OH (test code = 4958) 15 NG/ML Topher BrownLIPID [id number] 00:00:00* Test Item Value Reference Range Interpretation Comme nts CHOLESTEROL (test code = 2210) 186 MG/DL TRIGLYCERIDES (test code = 2232) 392 MG/DL HDL CHOLESTEROL (test code = 2220) 38 MG/DL CALC LDL CHOL (test code = 2237) 96 MG/DL RISK RATIO LDL/HDL (test cod e = 2238) 2.53 RATIO Topher BrownVITAMIN D, 25 [id number] 00:00:00* Test Item Value Reference Range Interpretation Comme [facility] VITAMIN D, 25 OH (test code = 4958) 15 NG/ML Topher BrownHEMOGLOBIN [id number] 00:00:00* Test Item Value Reference Range Interpretation Comme [facility] HEMOGLOBIN A1c (test code = 08108) 7.3 % Topher BrownCBC W/AUTO [id number] 00:00:00* Test Item Value Reference Range Interpretation Comme [facility] WBC (test code = 1001) 14.3 K/UL RBC (test code = 1002) 4.96 M/UL HEMOGLOBIN (test code = 1003) 13.8 G/DL HEMATOCRIT (test code = 1004) 39.6 % MCV (test code = 1005) 79.8 fL MCH (test code = 1006) 27.8 PG MCHC (test code = 1007) 34.8 G/DL RDW (test code = 1038) 14.7 % NEUTROPHILS (test code = 1008) 45.1 % LYMPHOCYTES (test code = 1010) 45.8 % MONOCYTES (test code = 1011) 6.7 % EOSINOPHILS (test code = 1012) 1.5 % BASOPHILS (test code = 1013) 0.4 % IMMATURE GRANULOCYTES (test code = 1036) 0.5 % NUCLEATED RBCS (test code = 1065) 0.0 /100WBC'S PLATELET COUNT (test code = 1015) 367 K/UL ABSOLUTE NEUTROPHILS (test c ode = 1066) 6.42 K/UL ABSOLUTE LYMPHOCYTES (test c ode = 1067) 6.53 K/UL ABSOLUTE MONOCYTES (test cod e = 1068) 0.96 K/UL ABSOLUTE EOSINOPHILS (test c ode = 1040) 0.22 K/UL ABSOLUTE BASOPHILS (test cod e = 1069) 0.06 K/UL ABS IMMATURE GRANULOCYTES (t est code = 1020) 0.07 K/UL ABS NUCLEATED RBCS (test cod e = 98766) 0.00 K/UL Topher BrownCOMPREHENSIVE METABOLIC [id number] 00:00:00* Test Item Value Reference Range Interpretation Comme nts GLUCOSE (test code = 2217) 143 MG/DL BUN (test code = 2208) 8 MG/DL CREATININE (test code = 2214) 0.83 MG/DL eGFR (2020 CKD-EPI) (test co de = 03799) 77 ML/MIN/1.73 CALC BUN/CREAT (test code = 2235) 10 RATIO SODIUM (test code = 2231) 145 MEQ/L POTASSIUM (test code = 2228) 3.1 MEQ/L CHLORIDE (test code = 2215) 103 MEQ/L CARBON DIOXIDE (test code = 2206) 25 MEQ/L CALCIUM (test code = 2209) 9.7 MG/DL PROTEIN, TOTAL (test code = 2229) 7.1 G/DL ALBUMIN (test code = 2201) 4.3 G/DL CALC GLOBULIN (test code = 2240) 2.8 G/DL CALC A/G RATIO (test code = 2234) 1.5 RATIO BILIRUBIN, TOTAL (test code = 2207) 0.3 MG/DL ALKALINE PHOSPHATASE (test code = 2204) 90 U/L AST (test code = 2218) 7 U/L ALT (test code = 2219) 6 U/L Topher BrownLIPID [id number] 00:00:00* Test Item Value Reference Range Interpretation Comme nts CHOLESTEROL (test code = 2210) 186 MG/DL TRIGLYCERIDES (test code = 2232) 392 MG/DL HDL CHOLESTEROL (test code = 2220) 38 MG/DL CALC LDL CHOL (test code = 2237) 96 MG/DL RISK RATIO LDL/HDL (test cod e = 2238) 2.53 RATIO Topher Cam KevinVITAMIN D, 25 [id number] 00:00:00* Test Item Value Reference Range Interpretation Comme nts VITAMIN D, 25 OH (test code = 4958) 15 NG/ML Topher BrownHEMOGLOBIN [id number] 00:00:00* Test Item Value Reference Range Interpretation Comme nts HEMOGLOBIN A1c (test code = 24353) 7.3 % Topher BrownCBC W/AUTO [id number] 00:00:00* Test Item Value Reference Range Interpretation Comme nts WBC (test code = 1001) 14.3 K/UL RBC (test code = 1002) 4.96 M/UL HEMOGLOBIN (test code = 1003) 13.8 G/DL HEMATOCRIT (test code = 1004) 39.6 % MCV (test code = 1005) 79.8 fL MCH (test code = 1006) 27.8 PG MCHC (test code = 1007) 34.8 G/DL RDW (test code = 1038) 14.7 % NEUTROPHILS (test code = 1008) 45.1 % LYMPHOCYTES (test code = 1010) 45.8 % MONOCYTES (test code = 1011) 6.7 % EOSINOPHILS (test code = 1012) 1.5 % BASOPHILS (test code = 1013) 0.4 % IMMATURE GRANULOCYTES (test code = 1036) 0.5 % NUCLEATED RBCS (test code = 1065) 0.0 /100WBC'S PLATELET COUNT (test code = 1015) 367 K/UL ABSOLUTE NEUTROPHILS (test c ode = 1066) 6.42 K/UL ABSOLUTE LYMPHOCYTES (test c ode = 1067) 6.53 K/UL ABSOLUTE MONOCYTES (test cod e = 1068) 0.96 K/UL ABSOLUTE EOSINOPHILS (test c ode = 1040) 0.22 K/UL ABSOLUTE BASOPHILS (test cod e = 1069) 0.06 K/UL ABS IMMATURE GRANULOCYTES (t est code = 1020) 0.07 K/UL ABS NUCLEATED RBCS (test cod e = 19252) 0.00 K/UL Topher BrownCOMPREHENSIVE METABOLIC [id number] 00:00:00* Test Item Value Reference Range Interpretation Comme nts GLUCOSE (test code = 2217) 143 MG/DL BUN (test code = 2208) 8 MG/DL CREATININE (test code = 2214) 0.83 MG/DL eGFR (2020 CKD-EPI) (test co de = 60129) 77 ML/MIN/1.73 CALC BUN/CREAT (test code = 2235) 10 RATIO SODIUM (test code = 2231) 145 MEQ/L POTASSIUM (test code = 2228) 3.1 MEQ/L CHLORIDE (test code = 2215) 103 MEQ/L CARBON DIOXIDE (test code = 2206) 25 MEQ/L CALCIUM (test code = 2209) 9.7 MG/DL PROTEIN, TOTAL (test code = 2229) 7.1 G/DL ALBUMIN (test code = 2201) 4.3 G/DL CALC GLOBULIN (test code = 2240) 2.8 G/DL CALC A/G RATIO (test code = 2234) 1.5 RATIO BILIRUBIN, TOTAL (test code = 2207) 0.3 MG/DL ALKALINE PHOSPHATASE (test code = 2204) 90 U/L AST (test code = 2218) 7 U/L ALT (test code = 2219) 6 U/L Topher BrownLIPID [id number] 00:00:00* Test Item Value Reference Range Interpretation Comme nts CHOLESTEROL (test code = 2210) 186 MG/DL TRIGLYCERIDES (test code = 2232) 392 MG/DL HDL CHOLESTEROL (test code = 2220) 38 MG/DL CALC LDL CHOL (test code = 2237) 96 MG/DL RISK RATIO LDL/HDL (test cod e = 2238) 2.53 RATIO Topher BrownVITAMIN D, 25 [id number] 00:00:00* Test Item Value Reference Range Interpretation Comme [facility] VITAMIN D, 25 OH (test code = 4958) 15 NG/ML Topher BrownHEMOGLOBIN [id number] 00:00:00* Test Item Value Reference Range Interpretation Comme [facility] HEMOGLOBIN A1c (test code = 92380) 7.3 % Topher BrownCBC W/AUTO [id number] 00:00:00* Test Item Value Reference Range Interpretation Comme [facility] WBC (test code = 1001) 14.3 K/UL RBC (test code = 1002) 4.96 M/UL HEMOGLOBIN (test code = 1003) 13.8 G/DL HEMATOCRIT (test code = 1004) 39.6 % MCV (test code = 1005) 79.8 fL MCH (test code = 1006) 27.8 PG MCHC (test code = 1007) 34.8 G/DL RDW (test code = 1038) 14.7 % NEUTROPHILS (test code = 1008) 45.1 % LYMPHOCYTES (test code = 1010) 45.8 % MONOCYTES (test code = 1011) 6.7 % EOSINOPHILS (test code = 1012) 1.5 % BASOPHILS (test code = 1013) 0.4 % IMMATURE GRANULOCYTES (test code = 1036) 0.5 % NUCLEATED RBCS (test code = 1065) 0.0 /100WBC'S PLATELET COUNT (test code = 1015) 367 K/UL ABSOLUTE NEUTROPHILS (test c ode = 1066) 6.42 K/UL ABSOLUTE LYMPHOCYTES (test c ode = 1067) 6.53 K/UL ABSOLUTE MONOCYTES (test cod e = 1068) 0.96 K/UL ABSOLUTE EOSINOPHILS (test c ode = 1040) 0.22 K/UL ABSOLUTE BASOPHILS (test cod e = 1069) 0.06 K/UL ABS IMMATURE GRANULOCYTES (t est code = 1020) 0.07 K/UL ABS NUCLEATED RBCS (test cod e = 44379) 0.00 K/UL Topher F KevinCOMPREHENSIVE METABOLIC [id number] 00:00:00* Test Item Value Reference Range Interpretation Comme nts GLUCOSE (test code = 2217) 143 MG/DL BUN (test code = 2208) 8 MG/DL CREATININE (test code = 2214) 0.83 MG/DL eGFR (2020 CKD-EPI) (test co de = 00649) 77 ML/MIN/1.73 CALC BUN/CREAT (test code = 2235) 10 RATIO SODIUM (test code = 2231) 145 MEQ/L POTASSIUM (test code = 2228) 3.1 MEQ/L CHLORIDE (test code = 2215) 103 MEQ/L CARBON DIOXIDE (test code = 2206) 25 MEQ/L CALCIUM (test code = 2209) 9.7 MG/DL PROTEIN, TOTAL (test code = 2229) 7.1 G/DL ALBUMIN (test code = 2201) 4.3 G/DL CALC GLOBULIN (test code = 2240) 2.8 G/DL CALC A/G RATIO (test code = 2234) 1.5 RATIO BILIRUBIN, TOTAL (test code = 2207) 0.3 MG/DL ALKALINE PHOSPHATASE (test code = 2204) 90 U/L AST (test code = 2218) 7 U/L ALT (test code = 2219) 6 U/L Topher BrownLIPID [id number] 00:00:00* Test Item Value Reference Range Interpretation Comme nts CHOLESTEROL (test code = 2210) 186 MG/DL TRIGLYCERIDES (test code = 2232) 392 MG/DL HDL CHOLESTEROL (test code = 2220) 38 MG/DL CALC LDL CHOL (test code = 2237) 96 MG/DL RISK RATIO LDL/HDL (test cod e = 2238) 2.53 RATIO Topher BrownVITAMIN D, 25 [id number] 00:00:00* Test Item Value Reference Range Interpretation Comme [facility] VITAMIN D, 25 OH (test code = 4958) 15 NG/ML Topher BrownHEMOGLOBIN [id number] 00:00:00* Test Item Value Reference Range Interpretation Comme [facility] HEMOGLOBIN A1c (test code = 68902) 7.3 % Topher BrownCBC W/AUTO [id number] 00:00:00* Test Item Value Reference Range Interpretation Comme nts WBC (test code = 1001) 14.3 K/UL RBC (test code = 1002) 4.96 M/UL HEMOGLOBIN (test code = 1003) 13.8 G/DL HEMATOCRIT (test code = 1004) 39.6 % MCV (test code = 1005) 79.8 fL MCH (test code = 1006) 27.8 PG MCHC (test code = 1007) 34.8 G/DL RDW (test code = 1038) 14.7 % NEUTROPHILS (test code = 1008) 45.1 % LYMPHOCYTES (test code = 1010) 45.8 % MONOCYTES (test code = 1011) 6.7 % EOSINOPHILS (test code = 1012) 1.5 % BASOPHILS (test code = 1013) 0.4 % IMMATURE GRANULOCYTES (test code = 1036) 0.5 % NUCLEATED RBCS (test code = 1065) 0.0 /100WBC'S PLATELET COUNT (test code = 1015) 367 K/UL ABSOLUTE NEUTROPHILS (test c ode = 1066) 6.42 K/UL ABSOLUTE LYMPHOCYTES (test c ode = 1067) 6.53 K/UL ABSOLUTE MONOCYTES (test cod e = 1068) 0.96 K/UL ABSOLUTE EOSINOPHILS (test c ode = 1040) 0.22 K/UL ABSOLUTE BASOPHILS (test cod e = 1069) 0.06 K/UL ABS IMMATURE GRANULOCYTES (t est code = 1020) 0.07 K/UL ABS NUCLEATED RBCS (test cod e = 43913) 0.00 K/UL Topher BrownCOMPREHENSIVE METABOLIC [id number] 00:00:00* Test Item Value Reference Range Interpretation Comme nts GLUCOSE (test code = 2217) 143 MG/DL BUN (test code = 2208) 8 MG/DL CREATININE (test code = 2214) 0.83 MG/DL eGFR (2020 CKD-EPI) (test co de = 27980) 77 ML/MIN/1.73 CALC BUN/CREAT (test code = 2235) 10 RATIO SODIUM (test code = 2231) 145 MEQ/L POTASSIUM (test code = 2228) 3.1 MEQ/L CHLORIDE (test code = 2215) 103 MEQ/L CARBON DIOXIDE (test code = 2206) 25 MEQ/L CALCIUM (test code = 2209) 9.7 MG/DL PROTEIN, TOTAL (test code = 2229) 7.1 G/DL ALBUMIN (test code = 2201) 4.3 G/DL CALC GLOBULIN (test code = 2240) 2.8 G/DL CALC A/G RATIO (test code = 2234) 1.5 RATIO BILIRUBIN, TOTAL (test code = 2207) 0.3 MG/DL ALKALINE PHOSPHATASE (test code = 2204) 90 U/L AST (test code = 2218) 7 U/L ALT (test code = 2219) 6 U/L Topher BrownLIPID [id number] 00:00:00* Test Item Value Reference Range Interpretation Comme nts CHOLESTEROL (test code = 2210) 186 MG/DL TRIGLYCERIDES (test code = 2232) 392 MG/DL HDL CHOLESTEROL (test code = 2220) 38 MG/DL CALC LDL CHOL (test code = 2237) 96 MG/DL RISK RATIO LDL/HDL (test cod e = 2238) 2.53 RATIO Topher BrownHEMOGLOBIN [id number] 05:16:06* Test Item Value Reference Range Interpretation Comme nts HEMOGLOBIN A1c (test code = 80892) 7.8 % 4.2-5.6 H [employer] GUIDELINES FOR HGB A1C: PREDIABETES/INCREASED RISK . . . . . . . 5.7-6.4% DIAGNOSIS OF DIABETES . . . . . . . . . >=6.5% WITH CONFIRMATION OR APPROPRIATE SYMPTOMS NOTE: ASSAY MAY BE AFFECTED BY HEMOGLOBINOPATHIES (SICKLE CELL ANEMIA, S-C DISEASE, OTHERS) OR ARTIFICIALLY LOWERED BY DECREASED RED CELL SURVIVAL (HEMOLYTIC ANEMIAS, BLOOD LOSS, ETC.). CONSIDER ALTERNATE TESTING OR LABORATORY CONSULTATION. LIPID [id number] 05:03:33* Test Item Value Reference Range Interpretation Comme nts CHOLESTEROL (test code = 2210) 237 MG/DL <200 H TRIGLYCERIDES (test code = 2232) 418 MG/DL <150 H HDL CHOLESTEROL (test code = 2220) 27 MG/DL >39 L CALC LDL CHOL (test code = 2237) (NOTE) MG/DL <100 UNABLE TO CALCUL ATE A VALID LDL CHOLESTEROL WHEN THE TRIGLYCERIDEVALUE IS GREATER THAN 400 MG/DL.UNABLE TO CALCULATE A VALID LDL CHOLESTEROL WHEN THE TRIGLYCERIDEVALUE IS GREATER THAN 400 MG/DL. NOTE: CALCULATED LDL IS BASED ON NURA-COWART METHOD WHICHINCLUDES ADJUSTABLE TRIGLYCERIDE:VLDL CHOLESTEROL RATIO.THIS FACTOR VARIES BY MEASURED TRIGLYCERIDE AND NON-HDLCHOLESTEROL CONCENTRATIONS WITH INCREASED CALCULATED LDL SEENIN HIGHER TRIGLYCERIDE OR LOWER NON-HDL SPECIMENS. FOR MOREINFORMATION, SEE CLIENT ANNOUNCEMENT AT [email or web address] CalcLDL-C RISK RATIO LDL/HDL (test code = 2238) (NOTE) RATIO <3.22 UNABLE TO COREEN CULATE COMPREHENSIVE METABOLIC [id number] 05:03:33* Test Item Value Reference Range Interpretation Comme nts GLUCOSE (test code = 2217) 215 MG/DL 70-99 H BUN (test code = 2208) 6 MG/DL 8-23 L CREATININE (test code = 2214) 0.74 MG/DL 0.60-1.30 eGFR (2020 CKD-EPI) (test code = 06696) 89 ML/MIN/1.73 >60 CALC BUN/CREAT (test code = 2235) 8 RATIO 6-28 SODIUM (test code = 2231) 141 MEQ/L 133-146 POTASSIUM (test code = 2228) 3.2 MEQ/L 3.5-5.4 L CHLORIDE (test code = 2215) 104 MEQ/L 95-107 CARBON DIOXIDE (test code = 2206) 21 MEQ/L 19-31 CALCIUM (test code = 2209) 9.2 MG/DL 8.5-10.5 PROTEIN, TOTAL (test code = 2229) 7.3 G/DL 6.1-8.3 ALBUMIN (test code = 2201) 4.3 G/DL 3.5-5.2 CALC GLOBULIN (test code = 2240) 3.0 G/DL 1.9-3.7 CALC A/G RATIO (test code = 2234) 1.4 RATIO 1.0-2.6 BILIRUBIN, TOTAL (test code = 7) 0.3 MG/DL See_Comment [Automated me ssage] The system which generated this result transmitted reference range: <=1.2. The reference range was not used to interpret this result as normal/abnormal. ALKALINE PHOSPHATASE (test code = 2203) 111 U/L 40-142 AST (test code = 2217) 10 U/L 9-40 ALT (test code = 221) 9 U/L 5-40 UNLESS OTHERWISE INDICATED, ALL TESTING PERFORMED [facility] [address] [place] [address] MONUMENT INSTALLER: VERA MONTALVO M.D. CLIA NUMBER [id number] [facility]. [id number] CBC W/AUTO DIFF WITH [id number] 03:46:41* Test Item Value Reference Range Interpretation Comme nts WBC (test code = 1001) 6.7 K/UL 3.5-11.0 RBC (test code = 1002) 5.18 M/UL 3.80-5.40 HEMOGLOBIN (test code = 1003) 14.1 G/DL 11.5-15.5 HEMATOCRIT (test code = 1004) 40.4 % 34.0-45.0 MCV (test code = 1005) 78.0 fL 80.0-99.0 L MCH (test code = 1006) 27.2 PG 25.0-33.0 MCHC (test code = 1007) 34.9 G/DL 31.0-36.0 RDW (test code = 1038) 15.4 % 11.5-15.0 H NEUTROPHILS (test code = 1008) 41.6 % LYMPHOCYTES (test code = 1010) 45.5 % MONOCYTES (test code = 1011) 7.5 % EOSINOPHILS (test code = 1012) 4.5 % BASOPHILS (test code = 1013) 0.6 % IMMATURE GRANULOCYTES (test code = 1036) 0.3 % NUCLEATED RBCS (test code = 1065) 0.0 /100 WBC'S See_Comment [Automated messa ge] The system which generated this result transmitted reference range: 0.0. The reference range was not used to interpret this result as normal/abnormal. PLATELET COUNT (test code = 1015) 342 K/UL 130-400 ABSOLUTE NEUTROPHILS (test code = 1066) 2.80 K/UL 1.50-7.50 ABSOLUTE LYMPHOCYTES (test code = 1067) 3.05 K/UL 1.00-4.00 ABSOLUTE MONOCYTES (test code = 1068) 0.50 K/UL 0.20-1.00 ABSOLUTE EOSINOPHILS (test code = 1040) 0.30 K/UL 0.00-0.50 ABSOLUTE BASOPHILS (test code = 1069) 0.04 K/UL 0.00-0.20 ABS IMMATURE GRANULOCYTES (test code = 1020) 0.02 K/UL 0.00-0.10 ABS NUCLEATED RBCS (test code = 82664) 0.00 K/UL 0.00-0.11 CBC W/AUTO [id number] 00:00:00* Test Item Value Reference Range Interpretation Comme nts WBC (test code = 1001) 6.7 K/UL RBC (test code = 1002) 5.18 M/UL HEMOGLOBIN (test code = 1003) 14.1 G/DL HEMATOCRIT (test code = 1004) 40.4 % MCV (test code = 1005) 78.0 fL MCH (test code = 1006) 27.2 PG MCHC (test code = 1007) 34.9 G/DL RDW (test code = 1038) 15.4 % NEUTROPHILS (test code = 1008) 41.6 % LYMPHOCYTES (test code = 1010) 45.5 % MONOCYTES (test code = 1011) 7.5 % EOSINOPHILS (test code = 1012) 4.5 % BASOPHILS (test code = 1013) 0.6 % IMMATURE GRANULOCYTES (test code = 1036) 0.3 % NUCLEATED RBCS (test code = 1065) 0.0 /100WBC'S PLATELET COUNT (test code = 1015) 342 K/UL ABSOLUTE NEUTROPHILS (test c ode = 1066) 2.80 K/UL ABSOLUTE LYMPHOCYTES (test c ode = 1067) 3.05 K/UL ABSOLUTE MONOCYTES (test cod e = 1068) 0.50 K/UL ABSOLUTE EOSINOPHILS (test c ode = 1040) 0.30 K/UL ABSOLUTE BASOPHILS (test cod e = 1069) 0.04 K/UL ABS IMMATURE GRANULOCYTES (t est code = 1020) 0.02 K/UL ABS NUCLEATED RBCS (test cod e = 34542) 0.00 K/UL Topher BrownHEMOGLOBIN [id number] 00:00:00* Test Item Value Reference Range Interpretation Comme nts HEMOGLOBIN A1c (test code = 90475) 7.8 % Topher BrownLIPID [id number] 00:00:00* Test Item Value Reference Range Interpretation Comme nts CHOLESTEROL (test code = 2210) 237 MG/DL TRIGLYCERIDES (test code = 2232) 418 MG/DL HDL CHOLESTEROL (test code = 2220) 27 MG/DL CALC LDL CHOL (test code = 2237) (NOTE) MG/DL RISK RATIO LDL/HDL (test cod e = 2238) (NOTE) RATIO Topher BrownCOMPREHENSIVE METABOLIC [id number] 00:00:00* Test Item Value Reference Range Interpretation Comme nts GLUCOSE (test code = 2217) 215 MG/DL BUN (test code = 2208) 6 MG/DL CREATININE (test code = 2214) 0.74 MG/DL eGFR (2020 CKD-EPI) (test co de = 10571) 89 ML/MIN/1.73 CALC BUN/CREAT (test code = 2235) 8 RATIO SODIUM (test code = 2231) 141 MEQ/L POTASSIUM (test code = 2228) 3.2 MEQ/L CHLORIDE (test code = 2215) 104 MEQ/L CARBON DIOXIDE (test code = 2206) 21 MEQ/L CALCIUM (test code = 2209) 9.2 MG/DL PROTEIN, TOTAL (test code = 2229) 7.3 G/DL ALBUMIN (test code = 2201) 4.3 G/DL CALC GLOBULIN (test code = 2240) 3.0 G/DL CALC A/G RATIO (test code = 2234) 1.4 RATIO BILIRUBIN, TOTAL (test code = 2207) 0.3 MG/DL ALKALINE PHOSPHATASE (test code = 2204) 111 U/L AST (test code = 2218) 10 U/L ALT (test code = 2219) 9 U/L CBC W/AUTO [id number] 00:00:00* Test Item Value Reference Range Interpretation Comme nts WBC (test code = 1001) 6.7 K/UL RBC (test code = 1002) 5.18 M/UL HEMOGLOBIN (test code = 1003) 14.1 G/DL HEMATOCRIT (test code = 1004) 40.4 % MCV (test code = 1005) 78.0 fL MCH (test code = 1006) 27.2 PG MCHC (test code = 1007) 34.9 G/DL RDW (test code = 1038) 15.4 % NEUTROPHILS (test code = 1008) 41.6 % LYMPHOCYTES (test code = 1010) 45.5 % MONOCYTES (test code = 1011) 7.5 % EOSINOPHILS (test code = 1012) 4.5 % BASOPHILS (test code = 1013) 0.6 % IMMATURE GRANULOCYTES (test code = 1036) 0.3 % NUCLEATED RBCS (test code = 1065) 0.0 /100WBC'S PLATELET COUNT (test code = 1015) 342 K/UL ABSOLUTE NEUTROPHILS (test c ode = 1066) 2.80 K/UL ABSOLUTE LYMPHOCYTES (test c ode = 1067) 3.05 K/UL ABSOLUTE MONOCYTES (test cod e = 1068) 0.50 K/UL ABSOLUTE EOSINOPHILS (test c ode = 1040) 0.30 K/UL ABSOLUTE BASOPHILS (test cod e = 1069) 0.04 K/UL ABS IMMATURE GRANULOCYTES (t est code = 1020) 0.02 K/UL ABS NUCLEATED RBCS (test cod e = 35175) 0.00 K/UL HEMOGLOBIN [id number] 00:00:00* Test Item Value Reference Range Interpretation Comme nts HEMOGLOBIN A1c (test code = 97442) 7.8 % LIPID [id number] 00:00:00* Test Item Value Reference Range Interpretation Comme nts CHOLESTEROL (test code = 2210) 237 MG/DL TRIGLYCERIDES (test code = 2232) 418 MG/DL HDL CHOLESTEROL (test code = 2220) 27 MG/DL CALC LDL CHOL (test code = 2237) (NOTE) MG/DL RISK RATIO LDL/HDL (test cod e = 2238) (NOTE) RATIO COMPREHENSIVE METABOLIC [id number] 00:00:00* Test Item Value Reference Range Interpretation Comme nts GLUCOSE (test code = 2217) 215 MG/DL BUN (test code = 2208) 6 MG/DL CREATININE (test code = 2214) 0.74 MG/DL eGFR (2020 CKD-EPI) (test co de = 00258) 89 ML/MIN/1.73 CALC BUN/CREAT (test code = 2235) 8 RATIO SODIUM (test code = 2231) 141 MEQ/L POTASSIUM (test code = 2228) 3.2 MEQ/L CHLORIDE (test code = 2215) 104 MEQ/L CARBON DIOXIDE (test code = 2206) 21 MEQ/L CALCIUM (test code = 2209) 9.2 MG/DL PROTEIN, TOTAL (test code = 2229) 7.3 G/DL ALBUMIN (test code = 2201) 4.3 G/DL CALC GLOBULIN (test code = 2240) 3.0 G/DL CALC A/G RATIO (test code = 2234) 1.4 RATIO BILIRUBIN, TOTAL (test code = 2207) 0.3 MG/DL ALKALINE PHOSPHATASE (test code = 2204) 111 U/L AST (test code = 2218) 10 U/L ALT (test code = 2219) 9 U/L CBC W/AUTO [id number] 00:00:00* Test Item Value Reference Range Interpretation Comme nts WBC (test code = 1001) 6.7 K/UL RBC (test code = 1002) 5.18 M/UL HEMOGLOBIN (test code = 1003) 14.1 G/DL HEMATOCRIT (test code = 1004) 40.4 % MCV (test code = 1005) 78.0 fL MCH (test code = 1006) 27.2 PG MCHC (test code = 1007) 34.9 G/DL RDW (test code = 1038) 15.4 % NEUTROPHILS (test code = 1008) 41.6 % LYMPHOCYTES (test code = 1010) 45.5 % MONOCYTES (test code = 1011) 7.5 % EOSINOPHILS (test code = 1012) 4.5 % BASOPHILS (test code = 1013) 0.6 % IMMATURE GRANULOCYTES (test code = 1036) 0.3 % NUCLEATED RBCS (test code = 1065) 0.0 /100WBC'S PLATELET COUNT (test code = 1015) 342 K/UL ABSOLUTE NEUTROPHILS (test c ode = 1066) 2.80 K/UL ABSOLUTE LYMPHOCYTES (test c ode = 1067) 3.05 K/UL ABSOLUTE MONOCYTES (test cod e = 1068) 0.50 K/UL ABSOLUTE EOSINOPHILS (test c ode = 1040) 0.30 K/UL ABSOLUTE BASOPHILS (test cod e = 1069) 0.04 K/UL ABS IMMATURE GRANULOCYTES (t est code = 1020) 0.02 K/UL ABS NUCLEATED RBCS (test cod e = 26727) 0.00 K/UL HEMOGLOBIN [id number] 00:00:00* Test Item Value Reference Range Interpretation Comme nts HEMOGLOBIN A1c (test code = 70040) 7.8 % LIPID [id number] 00:00:00* Test Item Value Reference Range Interpretation Comme nts CHOLESTEROL (test code = 2210) 237 MG/DL TRIGLYCERIDES (test code = 2232) 418 MG/DL HDL CHOLESTEROL (test code = 2220) 27 MG/DL CALC LDL CHOL (test code = 2237) (NOTE) MG/DL RISK RATIO LDL/HDL (test cod e = 2238) (NOTE) RATIO COMPREHENSIVE METABOLIC [id number] 00:00:00* Test Item Value Reference Range Interpretation Comme nts GLUCOSE (test code = 2217) 215 MG/DL BUN (test code = 2208) 6 MG/DL CREATININE (test code = 2214) 0.74 MG/DL eGFR (2020 CKD-EPI) (test co de = 33494) 89 ML/MIN/1.73 CALC BUN/CREAT (test code = 2235) 8 RATIO SODIUM (test code = 2231) 141 MEQ/L POTASSIUM (test code = 2228) 3.2 MEQ/L CHLORIDE (test code = 2215) 104 MEQ/L CARBON DIOXIDE (test code = 2206) 21 MEQ/L CALCIUM (test code = 2209) 9.2 MG/DL PROTEIN, TOTAL (test code = 2229) 7.3 G/DL ALBUMIN (test code = 2201) 4.3 G/DL CALC GLOBULIN (test code = 2240) 3.0 G/DL CALC A/G RATIO (test code = 2234) 1.4 RATIO BILIRUBIN, TOTAL (test code = 2207) 0.3 MG/DL ALKALINE PHOSPHATASE (test code = 2204) 111 U/L AST (test code = 2218) 10 U/L ALT (test code = 2219) 9 U/L CBC W/AUTO [id number] 00:00:00* Test Item Value Reference Range Interpretation Comme nts WBC (test code = 1001) 6.7 K/UL RBC (test code = 1002) 5.18 M/UL HEMOGLOBIN (test code = 1003) 14.1 G/DL HEMATOCRIT (test code = 1004) 40.4 % MCV (test code = 1005) 78.0 fL MCH (test code = 1006) 27.2 PG MCHC (test code = 1007) 34.9 G/DL RDW (test code = 1038) 15.4 % NEUTROPHILS (test code = 1008) 41.6 % LYMPHOCYTES (test code = 1010) 45.5 % MONOCYTES (test code = 1011) 7.5 % EOSINOPHILS (test code = 1012) 4.5 % BASOPHILS (test code = 1013) 0.6 % IMMATURE GRANULOCYTES (test code = 1036) 0.3 % NUCLEATED RBCS (test code = 1065) 0.0 /100WBC'S PLATELET COUNT (test code = 1015) 342 K/UL ABSOLUTE NEUTROPHILS (test c ode = 1066) 2.80 K/UL ABSOLUTE LYMPHOCYTES (test c ode = 1067) 3.05 K/UL ABSOLUTE MONOCYTES (test cod e = 1068) 0.50 K/UL ABSOLUTE EOSINOPHILS (test c ode = 1040) 0.30 K/UL ABSOLUTE BASOPHILS (test cod e = 1069) 0.04 K/UL ABS IMMATURE GRANULOCYTES (t est code = 1020) 0.02 K/UL ABS NUCLEATED RBCS (test cod e = 29732) 0.00 K/UL HEMOGLOBIN [id number] 00:00:00* Test Item Value Reference Range Interpretation Comme nts HEMOGLOBIN A1c (test code = 48593) 7.8 % LIPID [id number] 00:00:00* Test Item Value Reference Range Interpretation Comme nts CHOLESTEROL (test code = 2210) 237 MG/DL TRIGLYCERIDES (test code = 2232) 418 MG/DL HDL CHOLESTEROL (test code = 2220) 27 MG/DL CALC LDL CHOL (test code = 2237) (NOTE) MG/DL RISK RATIO LDL/HDL (test cod e = 2238) (NOTE) RATIO COMPREHENSIVE METABOLIC [id number] 00:00:00* Test Item Value Reference Range Interpretation Comme nts GLUCOSE (test code = 2217) 215 MG/DL BUN (test code = 2208) 6 MG/DL CREATININE (test code = 2214) 0.74 MG/DL eGFR (2020 CKD-EPI) (test co de = 75135) 89 ML/MIN/1.73 CALC BUN/CREAT (test code = 2235) 8 RATIO SODIUM (test code = 2231) 141 MEQ/L POTASSIUM (test code = 2228) 3.2 MEQ/L CHLORIDE (test code = 2215) 104 MEQ/L CARBON DIOXIDE (test code = 2206) 21 MEQ/L CALCIUM (test code = 2209) 9.2 MG/DL PROTEIN, TOTAL (test code = 2229) 7.3 G/DL ALBUMIN (test code = 2201) 4.3 G/DL CALC GLOBULIN (test code = 2240) 3.0 G/DL CALC A/G RATIO (test code = 2234) 1.4 RATIO BILIRUBIN, TOTAL (test code = 2207) 0.3 MG/DL ALKALINE PHOSPHATASE (test code = 2204) 111 U/L AST (test code = 2218) 10 U/L ALT (test code = 2219) 9 U/L CBC W/AUTO [id number] 00:00:00* Test Item Value Reference Range Interpretation Comme nts WBC (test code = 1001) 6.7 K/UL RBC (test code = 1002) 5.18 M/UL HEMOGLOBIN (test code = 1003) 14.1 G/DL HEMATOCRIT (test code = 1004) 40.4 % MCV (test code = 1005) 78.0 fL MCH (test code = 1006) 27.2 PG MCHC (test code = 1007) 34.9 G/DL RDW (test code = 1038) 15.4 % NEUTROPHILS (test code = 1008) 41.6 % LYMPHOCYTES (test code = 1010) 45.5 % MONOCYTES (test code = 1011) 7.5 % EOSINOPHILS (test code = 1012) 4.5 % BASOPHILS (test code = 1013) 0.6 % IMMATURE GRANULOCYTES (test code = 1036) 0.3 % NUCLEATED RBCS (test code = 1065) 0.0 /100WBC'S PLATELET COUNT (test code = 1015) 342 K/UL ABSOLUTE NEUTROPHILS (test c ode = 1066) 2.80 K/UL ABSOLUTE LYMPHOCYTES (test c ode = 1067) 3.05 K/UL ABSOLUTE MONOCYTES (test cod e = 1068) 0.50 K/UL ABSOLUTE EOSINOPHILS (test c ode = 1040) 0.30 K/UL ABSOLUTE BASOPHILS (test cod e = 1069) 0.04 K/UL ABS IMMATURE GRANULOCYTES (t est code = 1020) 0.02 K/UL ABS NUCLEATED RBCS (test cod e = 59259) 0.00 K/UL HEMOGLOBIN [id number] 00:00:00* Test Item Value Reference Range Interpretation Comme nts HEMOGLOBIN A1c (test code = 99536) 7.8 % LIPID [id number] 00:00:00* Test Item Value Reference Range Interpretation Comme nts CHOLESTEROL (test code = 2210) 237 MG/DL TRIGLYCERIDES (test code = 2232) 418 MG/DL HDL CHOLESTEROL (test code = 2220) 27 MG/DL CALC LDL CHOL (test code = 2237) (NOTE) MG/DL RISK RATIO LDL/HDL (test cod e = 2238) (NOTE) RATIO COMPREHENSIVE METABOLIC [id number] 00:00:00* Test Item Value Reference Range Interpretation Comme nts GLUCOSE (test code = 2217) 215 MG/DL BUN (test code = 2208) 6 MG/DL CREATININE (test code = 2214) 0.74 MG/DL eGFR (2020 CKD-EPI) (test co de = 82507) 89 ML/MIN/1.73 CALC BUN/CREAT (test code = 2235) 8 RATIO SODIUM (test code = 2231) 141 MEQ/L POTASSIUM (test code = 2228) 3.2 MEQ/L CHLORIDE (test code = 2215) 104 MEQ/L CARBON DIOXIDE (test code = 2206) 21 MEQ/L CALCIUM (test code = 2209) 9.2 MG/DL PROTEIN, TOTAL (test code = 2229) 7.3 G/DL ALBUMIN (test code = 2201) 4.3 G/DL CALC GLOBULIN (test code = 2240) 3.0 G/DL CALC A/G RATIO (test code = 2234) 1.4 RATIO BILIRUBIN, TOTAL (test code = 2207) 0.3 MG/DL ALKALINE PHOSPHATASE (test code = 2204) 111 U/L AST (test code = 2218) 10 U/L ALT (test code = 2219) 9 U/L CBC W/AUTO [id number] 00:00:00* Test Item Value Reference Range Interpretation Comme nts WBC (test code = 1001) 6.7 K/UL RBC (test code = 1002) 5.18 M/UL HEMOGLOBIN (test code = 1003) 14.1 G/DL HEMATOCRIT (test code = 1004) 40.4 % MCV (test code = 1005) 78.0 fL MCH (test code = 1006) 27.2 PG MCHC (test code = 1007) 34.9 G/DL RDW (test code = 1038) 15.4 % NEUTROPHILS (test code = 1008) 41.6 % LYMPHOCYTES (test code = 1010) 45.5 % MONOCYTES (test code = 1011) 7.5 % EOSINOPHILS (test code = 1012) 4.5 % BASOPHILS (test code = 1013) 0.6 % IMMATURE GRANULOCYTES (test code = 1036) 0.3 % NUCLEATED RBCS (test code = 1065) 0.0 /100WBC'S PLATELET COUNT (test code = 1015) 342 K/UL ABSOLUTE NEUTROPHILS (test c ode = 1066) 2.80 K/UL ABSOLUTE LYMPHOCYTES (test c ode = 1067) 3.05 K/UL ABSOLUTE MONOCYTES (test cod e = 1068) 0.50 K/UL ABSOLUTE EOSINOPHILS (test c ode = 1040) 0.30 K/UL ABSOLUTE BASOPHILS (test cod e = 1069) 0.04 K/UL ABS IMMATURE GRANULOCYTES (t est code = 1020) 0.02 K/UL ABS NUCLEATED RBCS (test cod e = 95735) 0.00 K/UL CBC W/AUTO [id number] 00:00:00* Test Item Value Reference Range Interpretation Comme nts WBC (test code = 1001) 6.7 K/UL RBC (test code = 1002) 5.18 M/UL HEMOGLOBIN (test code = 1003) 14.1 G/DL HEMATOCRIT (test code = 1004) 40.4 % MCV (test code = 1005) 78.0 fL MCH (test code = 1006) 27.2 PG MCHC (test code = 1007) 34.9 G/DL RDW (test code = 1038) 15.4 % NEUTROPHILS (test code = 1008) 41.6 % LYMPHOCYTES (test code = 1010) 45.5 % MONOCYTES (test code = 1011) 7.5 % EOSINOPHILS (test code = 1012) 4.5 % BASOPHILS (test code = 1013) 0.6 % IMMATURE GRANULOCYTES (test code = 1036) 0.3 % NUCLEATED RBCS (test code = 1065) 0.0 /100WBC'S PLATELET COUNT (test code = 1015) 342 K/UL ABSOLUTE NEUTROPHILS (test c ode = 1066) 2.80 K/UL ABSOLUTE LYMPHOCYTES (test c ode = 1067) 3.05 K/UL ABSOLUTE MONOCYTES (test cod e = 1068) 0.50 K/UL ABSOLUTE EOSINOPHILS (test c ode = 1040) 0.30 K/UL ABSOLUTE BASOPHILS (test cod e = 1069) 0.04 K/UL ABS IMMATURE GRANULOCYTES (t est code = 1020) 0.02 K/UL ABS NUCLEATED RBCS (test cod e = 16668) 0.00 K/UL HEMOGLOBIN [id number] 00:00:00* Test Item Value Reference Range Interpretation Comme nts HEMOGLOBIN A1c (test code = 70139) 7.8 % LIPID [id number] 00:00:00* Test Item Value Reference Range Interpretation Comme nts CHOLESTEROL (test code = 2210) 237 MG/DL TRIGLYCERIDES (test code = 2232) 418 MG/DL HDL CHOLESTEROL (test code = 2220) 27 MG/DL CALC LDL CHOL (test code = 2237) (NOTE) MG/DL RISK RATIO LDL/HDL (test cod e = 2238) (NOTE) RATIO COMPREHENSIVE METABOLIC [id number] 00:00:00* Test Item Value Reference Range Interpretation Comme nts GLUCOSE (test code = 2217) 215 MG/DL BUN (test code = 2208) 6 MG/DL CREATININE (test code = 2214) 0.74 MG/DL eGFR (2020 CKD-EPI) (test co de = 51192) 89 ML/MIN/1.73 CALC BUN/CREAT (test code = 2235) 8 RATIO SODIUM (test code = 2231) 141 MEQ/L POTASSIUM (test code = 2228) 3.2 MEQ/L CHLORIDE (test code = 2215) 104 MEQ/L CARBON DIOXIDE (test code = 2206) 21 MEQ/L CALCIUM (test code = 2209) 9.2 MG/DL PROTEIN, TOTAL (test code = 2229) 7.3 G/DL ALBUMIN (test code = 2201) 4.3 G/DL CALC GLOBULIN (test code = 2240) 3.0 G/DL CALC A/G RATIO (test code = 2234) 1.4 RATIO BILIRUBIN, TOTAL (test code = 2207) 0.3 MG/DL ALKALINE PHOSPHATASE (test code = 2204) 111 U/L AST (test code = 2218) 10 U/L ALT (test code = 2219) 9 U/L HEMOGLOBIN [id number] 00:00:00* Test Item Value Reference Range Interpretation Comme nts HEMOGLOBIN A1c (test code = 31573) 7.8 % LIPID [id number] 00:00:00* Test Item Value Reference Range Interpretation Comme nts CHOLESTEROL (test code = 2210) 237 MG/DL TRIGLYCERIDES (test code = 2232) 418 MG/DL HDL CHOLESTEROL (test code = 2220) 27 MG/DL CALC LDL CHOL (test code = 2237) (NOTE) MG/DL RISK RATIO LDL/HDL (test cod e = 2238) (NOTE) RATIO COMPREHENSIVE METABOLIC [id number] 00:00:00* Test Item Value Reference Range Interpretation Comme nts GLUCOSE (test code = 2217) 215 MG/DL BUN (test code = 2208) 6 MG/DL CREATININE (test code = 2214) 0.74 MG/DL eGFR (2020 CKD-EPI) (test co de = 68706) 89 ML/MIN/1.73 CALC BUN/CREAT (test code = 2235) 8 RATIO SODIUM (test code = 2231) 141 MEQ/L POTASSIUM (test code = 2228) 3.2 MEQ/L CHLORIDE (test code = 2215) 104 MEQ/L CARBON DIOXIDE (test code = 2206) 21 MEQ/L CALCIUM (test code = 2209) 9.2 MG/DL PROTEIN, TOTAL (test code = 2229) 7.3 G/DL ALBUMIN (test code = 2201) 4.3 G/DL CALC GLOBULIN (test code = 2240) 3.0 G/DL CALC A/G RATIO (test code = 2234) 1.4 RATIO BILIRUBIN, TOTAL (test code = 2207) 0.3 MG/DL ALKALINE PHOSPHATASE (test code = 2204) 111 U/L AST (test code = 2218) 10 U/L ALT (test code = 2219) 9 U/L CBC W/AUTO [id number] 00:00:00* Test Item Value Reference Range Interpretation Comme nts WBC (test code = 1001) 6.7 K/UL RBC (test code = 1002) 5.18 M/UL HEMOGLOBIN (test code = 1003) 14.1 G/DL HEMATOCRIT (test code = 1004) 40.4 % MCV (test code = 1005) 78.0 fL MCH (test code = 1006) 27.2 PG MCHC (test code = 1007) 34.9 G/DL RDW (test code = 1038) 15.4 % NEUTROPHILS (test code = 1008) 41.6 % LYMPHOCYTES (test code = 1010) 45.5 % MONOCYTES (test code = 1011) 7.5 % EOSINOPHILS (test code = 1012) 4.5 % BASOPHILS (test code = 1013) 0.6 % IMMATURE GRANULOCYTES (test code = 1036) 0.3 % NUCLEATED RBCS (test code = 1065) 0.0 /100WBC'S PLATELET COUNT (test code = 1015) 342 K/UL ABSOLUTE NEUTROPHILS (test c ode = 1066) 2.80 K/UL ABSOLUTE LYMPHOCYTES (test c ode = 1067) 3.05 K/UL ABSOLUTE MONOCYTES (test cod e = 1068) 0.50 K/UL ABSOLUTE EOSINOPHILS (test c ode = 1040) 0.30 K/UL ABSOLUTE BASOPHILS (test cod e = 1069) 0.04 K/UL ABS IMMATURE GRANULOCYTES (t est code = 1020) 0.02 K/UL ABS NUCLEATED RBCS (test cod e = 79286) 0.00 K/UL HEMOGLOBIN [id number] 00:00:00* Test Item Value Reference Range Interpretation Comme nts HEMOGLOBIN A1c (test code = 35406) 7.8 % LIPID [id number] 00:00:00* Test Item Value Reference Range Interpretation Comme nts CHOLESTEROL (test code = 2210) 237 MG/DL TRIGLYCERIDES (test code = 2232) 418 MG/DL HDL CHOLESTEROL (test code = 2220) 27 MG/DL CALC LDL CHOL (test code = 2237) (NOTE) MG/DL RISK RATIO LDL/HDL (test cod e = 2238) (NOTE) RATIO COMPREHENSIVE METABOLIC [id number] 00:00:00* Test Item Value Reference Range Interpretation Comme nts GLUCOSE (test code = 2217) 215 MG/DL BUN (test code = 2208) 6 MG/DL CREATININE (test code = 2214) 0.74 MG/DL eGFR (2020 CKD-EPI) (test co de = 18169) 89 ML/MIN/1.73 CALC BUN/CREAT (test code = 2235) 8 RATIO SODIUM (test code = 2231) 141 MEQ/L POTASSIUM (test code = 2228) 3.2 MEQ/L CHLORIDE (test code = 2215) 104 MEQ/L CARBON DIOXIDE (test code = 2206) 21 MEQ/L CALCIUM (test code = 2209) 9.2 MG/DL PROTEIN, TOTAL (test code = 2229) 7.3 G/DL ALBUMIN (test code = 2201) 4.3 G/DL CALC GLOBULIN (test code = 2240) 3.0 G/DL CALC A/G RATIO (test code = 2234) 1.4 RATIO BILIRUBIN, TOTAL (test code = 2207) 0.3 MG/DL ALKALINE PHOSPHATASE (test code = 2204) 111 U/L AST (test code = 2218) 10 U/L ALT (test code = 2219) 9 U/L CBC W/AUTO [id number] 00:00:00* Test Item Value Reference Range Interpretation Comme nts WBC (test code = 1001) 6.7 K/UL RBC (test code = 1002) 5.18 M/UL HEMOGLOBIN (test code = 1003) 14.1 G/DL HEMATOCRIT (test code = 1004) 40.4 % MCV (test code = 1005) 78.0 fL MCH (test code = 1006) 27.2 PG MCHC (test code = 1007) 34.9 G/DL RDW (test code = 1038) 15.4 % NEUTROPHILS (test code = 1008) 41.6 % LYMPHOCYTES (test code = 1010) 45.5 % MONOCYTES (test code = 1011) 7.5 % EOSINOPHILS (test code = 1012) 4.5 % BASOPHILS (test code = 1013) 0.6 % IMMATURE GRANULOCYTES (test code = 1036) 0.3 % NUCLEATED RBCS (test code = 1065) 0.0 /100WBC'S PLATELET COUNT (test code = 1015) 342 K/UL ABSOLUTE NEUTROPHILS (test c ode = 1066) 2.80 K/UL ABSOLUTE LYMPHOCYTES (test c ode = 1067) 3.05 K/UL ABSOLUTE MONOCYTES (test cod e = 1068) 0.50 K/UL ABSOLUTE EOSINOPHILS (test c ode = 1040) 0.30 K/UL ABSOLUTE BASOPHILS (test cod e = 1069) 0.04 K/UL ABS IMMATURE GRANULOCYTES (t est code = 1020) 0.02 K/UL ABS NUCLEATED RBCS (test cod e = 31704) 0.00 K/UL HEMOGLOBIN [id number] 00:00:00* Test Item Value Reference Range Interpretation Comme nts HEMOGLOBIN A1c (test code = 57891) 7.8 % LIPID [id number] 00:00:00* Test Item Value Reference Range Interpretation Comme nts CHOLESTEROL (test code = 2210) 237 MG/DL TRIGLYCERIDES (test code = 2232) 418 MG/DL HDL CHOLESTEROL (test code = 2220) 27 MG/DL CALC LDL CHOL (test code = 2237) (NOTE) MG/DL RISK RATIO LDL/HDL (test cod e = 2238) (NOTE) RATIO COMPREHENSIVE METABOLIC [id number] 00:00:00* Test Item Value Reference Range Interpretation Comme nts GLUCOSE (test code = 2217) 215 MG/DL BUN (test code = 2208) 6 MG/DL CREATININE (test code = 2214) 0.74 MG/DL eGFR (2020 CKD-EPI) (test co de = 53768) 89 ML/MIN/1.73 CALC BUN/CREAT (test code = 2235) 8 RATIO SODIUM (test code = 2231) 141 MEQ/L POTASSIUM (test code = 2228) 3.2 MEQ/L CHLORIDE (test code = 2215) 104 MEQ/L CARBON DIOXIDE (test code = 2206) 21 MEQ/L CALCIUM (test code = 2209) 9.2 MG/DL PROTEIN, TOTAL (test code = 2229) 7.3 G/DL ALBUMIN (test code = 2201) 4.3 G/DL CALC GLOBULIN (test code = 2240) 3.0 G/DL CALC A/G RATIO (test code = 2234) 1.4 RATIO BILIRUBIN, TOTAL (test code = 2207) 0.3 MG/DL ALKALINE PHOSPHATASE (test code = 2204) 111 U/L AST (test code = 2218) 10 U/L ALT (test code = 2219) 9 U/L Topher BrownCBC W/AUTO [id number] 00:00:00* Test Item Value Reference Range Interpretation Comme nts WBC (test code = 1001) 6.7 K/UL RBC (test code = 1002) 5.18 M/UL HEMOGLOBIN (test code = 1003) 14.1 G/DL HEMATOCRIT (test code = 1004) 40.4 % MCV (test code = 1005) 78.0 fL MCH (test code = 1006) 27.2 PG MCHC (test code = 1007) 34.9 G/DL RDW (test code = 1038) 15.4 % NEUTROPHILS (test code = 1008) 41.6 % LYMPHOCYTES (test code = 1010) 45.5 % MONOCYTES (test code = 1011) 7.5 % EOSINOPHILS (test code = 1012) 4.5 % BASOPHILS (test code = 1013) 0.6 % IMMATURE GRANULOCYTES (test code = 1036) 0.3 % NUCLEATED RBCS (test code = 1065) 0.0 /100WBC'S PLATELET COUNT (test code = 1015) 342 K/UL ABSOLUTE NEUTROPHILS (test c ode = 1066) 2.80 K/UL ABSOLUTE LYMPHOCYTES (test c ode = 1067) 3.05 K/UL ABSOLUTE MONOCYTES (test cod e = 1068) 0.50 K/UL ABSOLUTE EOSINOPHILS (test c ode = 1040) 0.30 K/UL ABSOLUTE BASOPHILS (test cod e = 1069) 0.04 K/UL ABS IMMATURE GRANULOCYTES (t est code = 1020) 0.02 K/UL ABS NUCLEATED RBCS (test cod e = 54544) 0.00 K/UL Topher Tutu KevinHEMOGLOBIN [id number] 00:00:00* Test Item Value Reference Range Interpretation Comme nts HEMOGLOBIN A1c (test code = 96908) 7.8 % Topher BrownLIPID [id number] 00:00:00* Test Item Value Reference Range Interpretation Comme nts CHOLESTEROL (test code = 2210) 237 MG/DL TRIGLYCERIDES (test code = 2232) 418 MG/DL HDL CHOLESTEROL (test code = 2220) 27 MG/DL CALC LDL CHOL (test code = 2237) (NOTE) MG/DL RISK RATIO LDL/HDL (test cod e = 2238) (NOTE) RATIO Topher BrownCOMPREHENSIVE METABOLIC [id number] 00:00:00* Test Item Value Reference Range Interpretation Comme nts GLUCOSE (test code = 2217) 215 MG/DL BUN (test code = 2208) 6 MG/DL CREATININE (test code = 2214) 0.74 MG/DL eGFR (2020 CKD-EPI) (test co de = 02832) 89 ML/MIN/1.73 CALC BUN/CREAT (test code = 2235) 8 RATIO SODIUM (test code = 2231) 141 MEQ/L POTASSIUM (test code = 2228) 3.2 MEQ/L CHLORIDE (test code = 2215) 104 MEQ/L CARBON DIOXIDE (test code = 2206) 21 MEQ/L CALCIUM (test code = 2209) 9.2 MG/DL PROTEIN, TOTAL (test code = 2229) 7.3 G/DL ALBUMIN (test code = 2201) 4.3 G/DL CALC GLOBULIN (test code = 2240) 3.0 G/DL CALC A/G RATIO (test code = 2234) 1.4 RATIO BILIRUBIN, TOTAL (test code = 2207) 0.3 MG/DL ALKALINE PHOSPHATASE (test code = 2204) 111 U/L AST (test code = 2218) 10 U/L ALT (test code = 2219) 9 U/L Topher BrownHEMOGLOBIN [id number] 00:00:00* Test Item Value Reference Range Interpretation Comme [place] HEMOGLOBIN A1c (test code = 92532) 7.8 % Topher BrownCBC W/AUTO [id number] 00:00:00* Test Item Value Reference Range Interpretation Comme nts WBC (test code = 1001) 6.7 K/UL RBC (test code = 1002) 5.18 M/UL HEMOGLOBIN (test code = 1003) 14.1 G/DL HEMATOCRIT (test code = 1004) 40.4 % MCV (test code = 1005) 78.0 fL MCH (test code = 1006) 27.2 PG MCHC (test code = 1007) 34.9 G/DL RDW (test code = 1038) 15.4 % NEUTROPHILS (test code = 1008) 41.6 % LYMPHOCYTES (test code = 1010) 45.5 % MONOCYTES (test code = 1011) 7.5 % EOSINOPHILS (test code = 1012) 4.5 % BASOPHILS (test code = 1013) 0.6 % IMMATURE GRANULOCYTES (test code = 1036) 0.3 % NUCLEATED RBCS (test code = 1065) 0.0 /100WBC'S PLATELET COUNT (test code = 1015) 342 K/UL ABSOLUTE NEUTROPHILS (test c ode = 1066) 2.80 K/UL ABSOLUTE LYMPHOCYTES (test c ode = 1067) 3.05 K/UL ABSOLUTE MONOCYTES (test cod e = 1068) 0.50 K/UL ABSOLUTE EOSINOPHILS (test c ode = 1040) 0.30 K/UL ABSOLUTE BASOPHILS (test cod e = 1069) 0.04 K/UL ABS IMMATURE GRANULOCYTES (t est code = 1020) 0.02 K/UL ABS NUCLEATED RBCS (test cod e = 98158) 0.00 K/UL Topher BrownHEMOGLOBIN [id number] 00:00:00* Test Item Value Reference Range Interpretation Comme nts HEMOGLOBIN A1c (test code = 01094) 7.8 % Topher BrownLIPID [id number] 00:00:00* Test Item Value Reference Range Interpretation Comme nts CHOLESTEROL (test code = 2210) 237 MG/DL TRIGLYCERIDES (test code = 2232) 418 MG/DL HDL CHOLESTEROL (test code = 2220) 27 MG/DL CALC LDL CHOL (test code = 2237) (NOTE) MG/DL RISK RATIO LDL/HDL (test cod e = 2238) (NOTE) RATIO Topher BrownCOMPREHENSIVE METABOLIC [id number] 00:00:00* Test Item Value Reference Range Interpretation Comme nts GLUCOSE (test code = 2217) 215 MG/DL BUN (test code = 2208) 6 MG/DL CREATININE (test code = 2214) 0.74 MG/DL eGFR (2020 CKD-EPI) (test co de = 16647) 89 ML/MIN/1.73 CALC BUN/CREAT (test code = 2235) 8 RATIO SODIUM (test code = 2231) 141 MEQ/L POTASSIUM (test code = 2228) 3.2 MEQ/L CHLORIDE (test code = 2215) 104 MEQ/L CARBON DIOXIDE (test code = 2206) 21 MEQ/L CALCIUM (test code = 2209) 9.2 MG/DL PROTEIN, TOTAL (test code = 2229) 7.3 G/DL ALBUMIN (test code = 2201) 4.3 G/DL CALC GLOBULIN (test code = 2240) 3.0 G/DL CALC A/G RATIO (test code = 2234) 1.4 RATIO BILIRUBIN, TOTAL (test code = 2207) 0.3 MG/DL ALKALINE PHOSPHATASE (test code = 2204) 111 U/L AST (test code = 2218) 10 U/L ALT (test code = 2219) 9 U/L Topher Cam [facility] W/AUTO [id number] 00:00:00* Test Item Value Reference Range Interpretation Comme nts WBC (test code = 1001) 6.7 K/UL RBC (test code = 1002) 5.18 M/UL HEMOGLOBIN (test code = 1003) 14.1 G/DL HEMATOCRIT (test code = 1004) 40.4 % MCV (test code = 1005) 78.0 fL MCH (test code = 1006) 27.2 PG MCHC (test code = 1007) 34.9 G/DL RDW (test code = 1038) 15.4 % NEUTROPHILS (test code = 1008) 41.6 % LYMPHOCYTES (test code = 1010) 45.5 % MONOCYTES (test code = 1011) 7.5 % EOSINOPHILS (test code = 1012) 4.5 % BASOPHILS (test code = 1013) 0.6 % IMMATURE GRANULOCYTES (test code = 1036) 0.3 % NUCLEATED RBCS (test code = 1065) 0.0 /100WBC'S PLATELET COUNT (test code = 1015) 342 K/UL ABSOLUTE NEUTROPHILS (test c ode = 1066) 2.80 K/UL ABSOLUTE LYMPHOCYTES (test c ode = 1067) 3.05 K/UL ABSOLUTE MONOCYTES (test cod e = 1068) 0.50 K/UL ABSOLUTE EOSINOPHILS (test c ode = 1040) 0.30 K/UL ABSOLUTE BASOPHILS (test cod e = 1069) 0.04 K/UL ABS IMMATURE GRANULOCYTES (t est code = 1020) 0.02 K/UL ABS NUCLEATED RBCS (test cod e = 20612) 0.00 K/UL Topher BrownHEMOGLOBIN [id number] 00:00:00* Test Item Value Reference Range Interpretation Comme nts HEMOGLOBIN A1c (test code = 79685) 7.8 % Topher BrownLIPID [id number] 00:00:00* Test Item Value Reference Range Interpretation Comme nts CHOLESTEROL (test code = 2210) 237 MG/DL TRIGLYCERIDES (test code = 2232) 418 MG/DL HDL CHOLESTEROL (test code = 2220) 27 MG/DL CALC LDL CHOL (test code = 2237) (NOTE) MG/DL RISK RATIO LDL/HDL (test cod e = 2238) (NOTE) RATIO Topher BrownCOMPREHENSIVE METABOLIC [id number] 00:00:00* Test Item Value Reference Range Interpretation Comme nts GLUCOSE (test code = 2217) 215 MG/DL BUN (test code = 2208) 6 MG/DL CREATININE (test code = 2214) 0.74 MG/DL eGFR (2020 CKD-EPI) (test co de = 63142) 89 ML/MIN/1.73 CALC BUN/CREAT (test code = 2235) 8 RATIO SODIUM (test code = 2231) 141 MEQ/L POTASSIUM (test code = 2228) 3.2 MEQ/L CHLORIDE (test code = 2215) 104 MEQ/L CARBON DIOXIDE (test code = 2206) 21 MEQ/L CALCIUM (test code = 2209) 9.2 MG/DL PROTEIN, TOTAL (test code = 2229) 7.3 G/DL ALBUMIN (test code = 2201) 4.3 G/DL CALC GLOBULIN (test code = 2240) 3.0 G/DL CALC A/G RATIO (test code = 2234) 1.4 RATIO BILIRUBIN, TOTAL (test code = 2207) 0.3 MG/DL ALKALINE PHOSPHATASE (test code = 2204) 111 U/L AST (test code = 2218) 10 U/L ALT (test code = 2219) 9 U/L Topher BrownLIPID [id number] 00:00:00* Test Item Value Reference Range Interpretation Comme nts CHOLESTEROL (test code = 2210) 237 MG/DL TRIGLYCERIDES (test code = 2232) 418 MG/DL HDL CHOLESTEROL (test code = 2220) 27 MG/DL CALC LDL CHOL (test code = 2237) (NOTE) MG/DL RISK RATIO LDL/HDL (test cod e = 2238) (NOTE) RATIO Topher BrownCOMPREHENSIVE METABOLIC [id number] 00:00:00* Test Item Value Reference Range Interpretation Comme nts GLUCOSE (test code = 2217) 215 MG/DL BUN (test code = 2208) 6 MG/DL CREATININE (test code = 2214) 0.74 MG/DL eGFR (2020 CKD-EPI) (test co de = 11407) 89 ML/MIN/1.73 CALC BUN/CREAT (test code = 2235) 8 RATIO SODIUM (test code = 2231) 141 MEQ/L POTASSIUM (test code = 2228) 3.2 MEQ/L CHLORIDE (test code = 2215) 104 MEQ/L CARBON DIOXIDE (test code = 2206) 21 MEQ/L CALCIUM (test code = 2209) 9.2 MG/DL PROTEIN, TOTAL (test code = 2229) 7.3 G/DL ALBUMIN (test code = 2201) 4.3 G/DL CALC GLOBULIN (test code = 2240) 3.0 G/DL CALC A/G RATIO (test code = 2234) 1.4 RATIO BILIRUBIN, TOTAL (test code = 2207) 0.3 MG/DL ALKALINE PHOSPHATASE (test code = 2204) 111 U/L AST (test code = 2218) 10 U/L ALT (test code = 2219) 9 U/L Topher BrownCBC W/AUTO [id number] 00:00:00* Test Item Value Reference Range Interpretation Comme nts WBC (test code = 1001) 6.7 K/UL RBC (test code = 1002) 5.18 M/UL HEMOGLOBIN (test code = 1003) 14.1 G/DL HEMATOCRIT (test code = 1004) 40.4 % MCV (test code = 1005) 78.0 fL MCH (test code = 1006) 27.2 PG MCHC (test code = 1007) 34.9 G/DL RDW (test code = 1038) 15.4 % NEUTROPHILS (test code = 1008) 41.6 % LYMPHOCYTES (test code = 1010) 45.5 % MONOCYTES (test code = 1011) 7.5 % EOSINOPHILS (test code = 1012) 4.5 % BASOPHILS (test code = 1013) 0.6 % IMMATURE GRANULOCYTES (test code = 1036) 0.3 % NUCLEATED RBCS (test code = 1065) 0.0 /100WBC'S PLATELET COUNT (test code = 1015) 342 K/UL ABSOLUTE NEUTROPHILS (test c ode = 1066) 2.80 K/UL ABSOLUTE LYMPHOCYTES (test c ode = 1067) 3.05 K/UL ABSOLUTE MONOCYTES (test cod e = 1068) 0.50 K/UL ABSOLUTE EOSINOPHILS (test c ode = 1040) 0.30 K/UL ABSOLUTE BASOPHILS (test cod e = 1069) 0.04 K/UL ABS IMMATURE GRANULOCYTES (t est code = 1020) 0.02 K/UL ABS NUCLEATED RBCS (test cod e = 53142) 0.00 K/UL Topher BrownHEMOGLOBIN [id number] 00:00:00* Test Item Value Reference Range Interpretation Comme nts HEMOGLOBIN A1c (test code = 09397) 7.8 % Topher BrownLIPID [id number] 00:00:00* Test Item Value Reference Range Interpretation Comme nts CHOLESTEROL (test code = 2210) 237 MG/DL TRIGLYCERIDES (test code = 2232) 418 MG/DL HDL CHOLESTEROL (test code = 2220) 27 MG/DL CALC LDL CHOL (test code = 2237) (NOTE) MG/DL RISK RATIO LDL/HDL (test cod e = 2238) (NOTE) RATIO Topher BrownCOMPREHENSIVE METABOLIC [id number] 00:00:00* Test Item Value Reference Range Interpretation Comme nts GLUCOSE (test code = 2217) 215 MG/DL BUN (test code = 2208) 6 MG/DL CREATININE (test code = 2214) 0.74 MG/DL eGFR (2020 CKD-EPI) (test co de = 75641) 89 ML/MIN/1.73 CALC BUN/CREAT (test code = 2235) 8 RATIO SODIUM (test code = 2231) 141 MEQ/L POTASSIUM (test code = 2228) 3.2 MEQ/L CHLORIDE (test code = 2215) 104 MEQ/L CARBON DIOXIDE (test code = 2206) 21 MEQ/L CALCIUM (test code = 2209) 9.2 MG/DL PROTEIN, TOTAL (test code = 2229) 7.3 G/DL ALBUMIN (test code = 2201) 4.3 G/DL CALC GLOBULIN (test code = 2240) 3.0 G/DL CALC A/G RATIO (test code = 2234) 1.4 RATIO BILIRUBIN, TOTAL (test code = 2207) 0.3 MG/DL ALKALINE PHOSPHATASE (test code = 2204) 111 U/L AST (test code = 2218) 10 U/L ALT (test code = 2219) 9 U/L [facility] [id number] 00:00:00* Test Item Value Reference Range Interpretation Comme nts WBC (test code = 1001) 6.7 K/UL RBC (test code = 1002) 5.18 M/UL HEMOGLOBIN (test code = 1003) 14.1 G/DL HEMATOCRIT (test code = 1004) 40.4 % MCV (test code = 1005) 78.0 fL MCH (test code = 1006) 27.2 PG MCHC (test code = 1007) 34.9 G/DL RDW (test code = 1038) 15.4 % NEUTROPHILS (test code = 1008) 41.6 % LYMPHOCYTES (test code = 1010) 45.5 % MONOCYTES (test code = 1011) 7.5 % EOSINOPHILS (test code = 1012) 4.5 % BASOPHILS (test code = 1013) 0.6 % IMMATURE GRANULOCYTES (test code = 1036) 0.3 % NUCLEATED RBCS (test code = 1065) 0.0 /100WBC'S PLATELET COUNT (test code = 1015) 342 K/UL ABSOLUTE NEUTROPHILS (test c ode = 1066) 2.80 K/UL ABSOLUTE LYMPHOCYTES (test c ode = 1067) 3.05 K/UL ABSOLUTE MONOCYTES (test cod e = 1068) 0.50 K/UL ABSOLUTE EOSINOPHILS (test c ode = 1040) 0.30 K/UL ABSOLUTE BASOPHILS (test cod e = 1069) 0.04 K/UL ABS IMMATURE GRANULOCYTES (t est code = 1020) 0.02 K/UL ABS NUCLEATED RBCS (test cod e = 27956) 0.00 K/UL Topher BrownHEMOGLOBIN [id number] 00:00:00* Test Item Value Reference Range Interpretation Comme nts HEMOGLOBIN A1c (test code = 14463) 7.8 % Topher BrownLIPID [id number] 00:00:00* Test Item Value Reference Range Interpretation Comme nts CHOLESTEROL (test code = 2210) 237 MG/DL TRIGLYCERIDES (test code = 2232) 418 MG/DL HDL CHOLESTEROL (test code = 2220) 27 MG/DL CALC LDL CHOL (test code = 2237) (NOTE) MG/DL RISK RATIO LDL/HDL (test cod e = 2238) (NOTE) RATIO Topher BrownCOMPREHENSIVE METABOLIC [id number] 00:00:00* Test Item Value Reference Range Interpretation Comme nts GLUCOSE (test code = 2217) 215 MG/DL BUN (test code = 2208) 6 MG/DL CREATININE (test code = 2214) 0.74 MG/DL eGFR (2020 CKD-EPI) (test co de = 23686) 89 ML/MIN/1.73 CALC BUN/CREAT (test code = 2235) 8 RATIO SODIUM (test code = 2231) 141 MEQ/L POTASSIUM (test code = 2228) 3.2 MEQ/L CHLORIDE (test code = 2215) 104 MEQ/L CARBON DIOXIDE (test code = 2206) 21 MEQ/L CALCIUM (test code = 2209) 9.2 MG/DL PROTEIN, TOTAL (test code = 2229) 7.3 G/DL ALBUMIN (test code = 2201) 4.3 G/DL CALC GLOBULIN (test code = 2240) 3.0 G/DL CALC A/G RATIO (test code = 2234) 1.4 RATIO BILIRUBIN, TOTAL (test code = 2207) 0.3 MG/DL ALKALINE PHOSPHATASE (test code = 2204) 111 U/L AST (test code = 2218) 10 U/L ALT (test code = 2219) 9 U/L Topher BrownCBC W/AUTO [id number] 00:00:00* Test Item Value Reference Range Interpretation Comme nts WBC (test code = 1001) 6.7 K/UL RBC (test code = 1002) 5.18 M/UL HEMOGLOBIN (test code = 1003) 14.1 G/DL HEMATOCRIT (test code = 1004) 40.4 % MCV (test code = 1005) 78.0 fL MCH (test code = 1006) 27.2 PG MCHC (test code = 1007) 34.9 G/DL RDW (test code = 1038) 15.4 % NEUTROPHILS (test code = 1008) 41.6 % LYMPHOCYTES (test code = 1010) 45.5 % MONOCYTES (test code = 1011) 7.5 % EOSINOPHILS (test code = 1012) 4.5 % BASOPHILS (test code = 1013) 0.6 % IMMATURE GRANULOCYTES (test code = 1036) 0.3 % NUCLEATED RBCS (test code = 1065) 0.0 /100WBC'S PLATELET COUNT (test code = 1015) 342 K/UL ABSOLUTE NEUTROPHILS (test c ode = 1066) 2.80 K/UL ABSOLUTE LYMPHOCYTES (test c ode = 1067) 3.05 K/UL ABSOLUTE MONOCYTES (test cod e = 1068) 0.50 K/UL ABSOLUTE EOSINOPHILS (test c ode = 1040) 0.30 K/UL ABSOLUTE BASOPHILS (test cod e = 1069) 0.04 K/UL ABS IMMATURE GRANULOCYTES (t est code = 1020) 0.02 K/UL ABS NUCLEATED RBCS (test cod e = 20504) 0.00 K/UL Topher BrownHEMOGLOBIN [id number] 00:00:00* Test Item Value Reference Range Interpretation Comme nts HEMOGLOBIN A1c (test code = 75023) 7.8 % Topher Cam AustinLIPID [id number] 00:00:00* Test Item Value Reference Range Interpretation Comme nts CHOLESTEROL (test code = 2210) 237 MG/DL TRIGLYCERIDES (test code = 2232) 418 MG/DL HDL CHOLESTEROL (test code = 2220) 27 MG/DL CALC LDL CHOL (test code = 2237) (NOTE) MG/DL RISK RATIO LDL/HDL (test cod e = 2238) (NOTE) RATIO Topher BrownCOMPREHENSIVE METABOLIC [id number] 00:00:00* Test Item Value Reference Range Interpretation Comme nts GLUCOSE (test code = 2217) 215 MG/DL BUN (test code = 2208) 6 MG/DL CREATININE (test code = 2214) 0.74 MG/DL eGFR (2020 CKD-EPI) (test co de = 86414) 89 ML/MIN/1.73 CALC BUN/CREAT (test code = 2235) 8 RATIO SODIUM (test code = 2231) 141 MEQ/L POTASSIUM (test code = 2228) 3.2 MEQ/L CHLORIDE (test code = 2215) 104 MEQ/L CARBON DIOXIDE (test code = 2206) 21 MEQ/L CALCIUM (test code = 2209) 9.2 MG/DL PROTEIN, TOTAL (test code = 2229) 7.3 G/DL ALBUMIN (test code = 2201) 4.3 G/DL CALC GLOBULIN (test code = 2240) 3.0 G/DL CALC A/G RATIO (test code = 2234) 1.4 RATIO BILIRUBIN, TOTAL (test code = 2207) 0.3 MG/DL ALKALINE PHOSPHATASE (test code = 2204) 111 U/L AST (test code = 2218) 10 U/L ALT (test code = 2219) 9 U/L [facility] [id number] 00:00:00* Test Item Value Reference Range Interpretation Comme nts WBC (test code = 1001) 6.7 K/UL RBC (test code = 1002) 5.18 M/UL HEMOGLOBIN (test code = 1003) 14.1 G/DL HEMATOCRIT (test code = 1004) 40.4 % MCV (test code = 1005) 78.0 fL MCH (test code = 1006) 27.2 PG MCHC (test code = 1007) 34.9 G/DL RDW (test code = 1038) 15.4 % NEUTROPHILS (test code = 1008) 41.6 % LYMPHOCYTES (test code = 1010) 45.5 % MONOCYTES (test code = 1011) 7.5 % EOSINOPHILS (test code = 1012) 4.5 % BASOPHILS (test code = 1013) 0.6 % IMMATURE GRANULOCYTES (test code = 1036) 0.3 % NUCLEATED RBCS (test code = 1065) 0.0 /100WBC'S PLATELET COUNT (test code = 1015) 342 K/UL ABSOLUTE NEUTROPHILS (test c ode = 1066) 2.80 K/UL ABSOLUTE LYMPHOCYTES (test c ode = 1067) 3.05 K/UL ABSOLUTE MONOCYTES (test cod e = 1068) 0.50 K/UL ABSOLUTE EOSINOPHILS (test c ode = 1040) 0.30 K/UL ABSOLUTE BASOPHILS (test cod e = 1069) 0.04 K/UL ABS IMMATURE GRANULOCYTES (t est code = 1020) 0.02 K/UL ABS NUCLEATED RBCS (test cod e = 74313) 0.00 K/UL Topher BrownHEMOGLOBIN [id number] 00:00:00* Test Item Value Reference Range Interpretation Comme nts HEMOGLOBIN A1c (test code = 90414) 7.8 % Topher BrownLIPID [id number] 00:00:00* Test Item Value Reference Range Interpretation Comme nts CHOLESTEROL (test code = 2210) 237 MG/DL TRIGLYCERIDES (test code = 2232) 418 MG/DL HDL CHOLESTEROL (test code = 2220) 27 MG/DL CALC LDL CHOL (test code = 2237) (NOTE) MG/DL RISK RATIO LDL/HDL (test cod e = 2238) (NOTE) RATIO Topher BrownCOMPREHENSIVE METABOLIC [id number] 00:00:00* Test Item Value Reference Range Interpretation Comme nts GLUCOSE (test code = 2217) 215 MG/DL BUN (test code = 2208) 6 MG/DL CREATININE (test code = 2214) 0.74 MG/DL eGFR (2020 CKD-EPI) (test co de = 67651) 89 ML/MIN/1.73 CALC BUN/CREAT (test code = 2235) 8 RATIO SODIUM (test code = 2231) 141 MEQ/L POTASSIUM (test code = 2228) 3.2 MEQ/L CHLORIDE (test code = 2215) 104 MEQ/L CARBON DIOXIDE (test code = 2206) 21 MEQ/L CALCIUM (test code = 2209) 9.2 MG/DL PROTEIN, TOTAL (test code = 2229) 7.3 G/DL ALBUMIN (test code = 2201) 4.3 G/DL CALC GLOBULIN (test code = 2240) 3.0 G/DL CALC A/G RATIO (test code = 2234) 1.4 RATIO BILIRUBIN, TOTAL (test code = 2207) 0.3 MG/DL ALKALINE PHOSPHATASE (test code = 2204) 111 U/L AST (test code = 2218) 10 U/L ALT (test code = 2219) 9 U/L Topher BrownC W/AUTO [id number] 00:00:00* Test Item Value Reference Range Interpretation Comme nts WBC (test code = 1001) 6.7 K/UL RBC (test code = 1002) 5.18 M/UL HEMOGLOBIN (test code = 1003) 14.1 G/DL HEMATOCRIT (test code = 1004) 40.4 % MCV (test code = 1005) 78.0 fL MCH (test code = 1006) 27.2 PG MCHC (test code = 1007) 34.9 G/DL RDW (test code = 1038) 15.4 % NEUTROPHILS (test code = 1008) 41.6 % LYMPHOCYTES (test code = 1010) 45.5 % MONOCYTES (test code = 1011) 7.5 % EOSINOPHILS (test code = 1012) 4.5 % BASOPHILS (test code = 1013) 0.6 % IMMATURE GRANULOCYTES (test code = 1036) 0.3 % NUCLEATED RBCS (test code = 1065) 0.0 /100WBC'S PLATELET COUNT (test code = 1015) 342 K/UL ABSOLUTE NEUTROPHILS (test c ode = 1066) 2.80 K/UL ABSOLUTE LYMPHOCYTES (test c ode = 1067) 3.05 K/UL ABSOLUTE MONOCYTES (test cod e = 1068) 0.50 K/UL ABSOLUTE EOSINOPHILS (test c ode = 1040) 0.30 K/UL ABSOLUTE BASOPHILS (test cod e = 1069) 0.04 K/UL ABS IMMATURE GRANULOCYTES (t est code = 1020) 0.02 K/UL ABS NUCLEATED RBCS (test cod e = 23889) 0.00 K/UL Topher Olsen, THIRD [id number] 06:08:04* Test Item Value Reference Range Interpretation Comme nts TSH, THIRD GENERATION (test code = 2821) 1.700 UIU/ML 0.400-4.100 UNLESS OTHERWISE INDICATED, ALL TESTING PERFORMED [facility] [address] [place] [id number] MONUMENT INSTALLER: VERA MONTALVO M.D. CLIA NUMBER [id number] [place]. [id number] LIPID [id number] 03:59:07* Test Item Value Reference Range Interpretation Comme nts CHOLESTEROL (test code = 2210) 181 MG/DL <200 TRIGLYCERIDES (test code = 2232) 257 MG/DL <150 H HDL CHOLESTEROL (test code = 2220) 28 MG/DL >39 L CALC LDL CHOL (test code = 2237) 116 MG/DL <100 H NOTE: CALCULATED LDL IS BASED ON NURA-COWART METHOD WHICHINCLUDES ADJUSTABLE TRIGLYCERIDE:VLDL CHOLESTEROL RATIO.THIS FACTOR VARIES BY MEASURED TRIGLYCERIDE AND NON-HDLCHOLESTEROL CONCENTRATIONS WITH INCREASED CALCULATED LDL SEENIN HIGHER TRIGLYCERIDE OR LOWER NON-HDL SPECIMENS. FOR MOREINFORMATION, SEE CLIENT ANNOUNCEMENT AT [email or web address] RISK RATIO LDL/HDL (test code = 2238) 4.14 RATIO <3.22 H COMPREHENSIVE METABOLIC [id number] 03:59:07* Test Item Value Reference Range Interpretation Comme nts GLUCOSE (test code = 2217) 162 MG/DL 70-99 H BUN (test code = 2207) 8 MG/DL 8-23 CREATININE (test code = 221) 0.74 MG/DL 0.60-1.30 EFFECTIVE 06/14/2021, [facility] HAS IMPLEMENTED THE NKF-ASN RECOMMENDED KD-EPI EGFR REFIT CALCULATION THAT DOES NOT INCLUDE A COEFFICIENT FORRACE. FOR MORE INFORMATION, SEE ANNOUNCEMENT [email or web address] eGFR (2020 CKD-EPI) (test code = 50161) 89 ML/MIN/1.73 >60 CALC BUN/CREAT (test code = 2234) 11 RATIO 6-28 SODIUM (test code = 2230) 143 MEQ/L 133-146 POTASSIUM (test code = 2227) 4.1 MEQ/L 3.5-5.4 CHLORIDE (test code = 221) 104 MEQ/L 95-107 CARBON DIOXIDE (test code = 2205) 22 MEQ/L 19-31 CALCIUM (test code = 2208) 9.4 MG/DL 8.5-10.5 PROTEIN, TOTAL (test code = 2228) 7.3 G/DL 6.1-8.3 ALBUMIN (test code = 2200) 4.4 G/DL 3.5-5.2 CALC GLOBULIN (test code = 2239) 2.9 G/DL 1.9-3.7 CALC A/G RATIO (test code = 2234) 1.5 RATIO 1.0-2.6 BILIRUBIN, TOTAL (test code = 2207) 0.4 MG/DL See_Comment [Automated me ssage] The system which generated this result transmitted reference range: <=1.2. The reference range was not used to interpret this result as normal/abnormal. ALKALINE PHOSPHATASE (test code = 2204) 121 U/L 40-142 AST (test code = 2218) 8 U/L 9-40 L ALT (test code = 2219) 6 U/L 5-40 HEMOGLOBIN [id number] 03:54:43* Test Item Value Reference Range Interpretation Comme nts HEMOGLOBIN A1c (test code = 85553) 7.6 % 4.2-5.6 H [employer] GUIDELINES FOR HGB A1C: PREDIABETES/INCREASED RISK . . . . . . . 5.7-6.4% DIAGNOSIS OF DIABETES . . . . . . . . . >=6.5% WITH CONFIRMATION OR APPROPRIATE SYMPTOMS NOTE: ASSAY MAY BE AFFECTED BY HEMOGLOBINOPATHIES (SICKLE CELL ANEMIA, S-C DISEASE, OTHERS) OR ARTIFICIALLY LOWERED BY DECREASED RED CELL SURVIVAL (HEMOLYTIC ANEMIAS, BLOOD LOSS, ETC.). CONSIDER ALTERNATE TESTING OR LABORATORY CONSULTATION. HEMOGLOBIN [id number] 00:00:00* Test Item Value Reference Range Interpretation Comme [facility] HEMOGLOBIN A1c (test code = 37089) 7.6 % Topher Cam AustinLIPID [id number] 00:00:00* Test Item Value Reference Range Interpretation Comme nts CHOLESTEROL (test code = 2210) 181 MG/DL TRIGLYCERIDES (test code = 2232) 257 MG/DL HDL CHOLESTEROL (test code = 2220) 28 MG/DL CALC LDL CHOL (test code = 2237) 116 MG/DL RISK RATIO LDL/HDL (test cod e = 2238) 4.14 RATIO Topher Cam AustinCOMPREHENSIVE METABOLIC [id number] 00:00:00* Test Item Value Reference Range Interpretation Comme nts GLUCOSE (test code = 2217) 162 MG/DL BUN (test code = 2208) 8 MG/DL CREATININE (test code = 2214) 0.74 MG/DL eGFR (2020 CKD-EPI) (test co de = 52394) 89 ML/MIN/1.73 CALC BUN/CREAT (test code = 2235) 11 RATIO SODIUM (test code = 2231) 143 MEQ/L POTASSIUM (test code = 2228) 4.1 MEQ/L CHLORIDE (test code = 2215) 104 MEQ/L CARBON DIOXIDE (test code = 2206) 22 MEQ/L CALCIUM (test code = 2209) 9.4 MG/DL PROTEIN, TOTAL (test code = 2229) 7.3 G/DL ALBUMIN (test code = 2201) 4.4 G/DL CALC GLOBULIN (test code = 2240) 2.9 G/DL CALC A/G RATIO (test code = 2234) 1.5 RATIO BILIRUBIN, TOTAL (test code = 2207) 0.4 MG/DL ALKALINE PHOSPHATASE (test code = 2204) 121 U/L AST (test code = 2218) 8 U/L ALT (test code = 2219) 6 U/L Topher [id number] 00:00:00* Test Item Value Reference Range Interpretation Comme nts TSH, THIRD GENERATION (test code = 2821) 1.700 UIU/ML HEMOGLOBIN [id number] 00:00:00* Test Item Value Reference Range Interpretation Comme nts HEMOGLOBIN A1c (test code = 40864) 7.6 % LIPID [id number] 00:00:00* Test Item Value Reference Range Interpretation Comme nts CHOLESTEROL (test code = 2210) 181 MG/DL TRIGLYCERIDES (test code = 2232) 257 MG/DL HDL CHOLESTEROL (test code = 2220) 28 MG/DL CALC LDL CHOL (test code = 2237) 116 MG/DL RISK RATIO LDL/HDL (test cod e = 2238) 4.14 RATIO COMPREHENSIVE METABOLIC [id number] 00:00:00* Test Item Value Reference Range Interpretation Comme nts GLUCOSE (test code = 2217) 162 MG/DL BUN (test code = 2208) 8 MG/DL CREATININE (test code = 2214) 0.74 MG/DL eGFR (2020 CKD-EPI) (test co de = 64314) 89 ML/MIN/1.73 CALC BUN/CREAT (test code = 2235) 11 RATIO SODIUM (test code = 2231) 143 MEQ/L POTASSIUM (test code = 2228) 4.1 MEQ/L CHLORIDE (test code = 2215) 104 MEQ/L CARBON DIOXIDE (test code = 2206) 22 MEQ/L CALCIUM (test code = 2209) 9.4 MG/DL PROTEIN, TOTAL (test code = 2229) 7.3 G/DL ALBUMIN (test code = 2201) 4.4 G/DL CALC GLOBULIN (test code = 2240) 2.9 G/DL CALC A/G RATIO (test code = 2234) 1.5 RATIO BILIRUBIN, TOTAL (test code = 2207) 0.4 MG/DL ALKALINE PHOSPHATASE (test code = 2204) 121 U/L AST (test code = 2218) 8 U/L ALT (test code = 2219) 6 U/L [id number] 00:00:00* Test Item Value Reference Range Interpretation Comme nts TSH, THIRD GENERATION (test code = 2821) 1.700 UIU/ML HEMOGLOBIN [id number] 00:00:00* Test Item Value Reference Range Interpretation Comme nts HEMOGLOBIN A1c (test code = 07176) 7.6 % LIPID [id number] 00:00:00* Test Item Value Reference Range Interpretation Comme nts CHOLESTEROL (test code = 2210) 181 MG/DL TRIGLYCERIDES (test code = 2232) 257 MG/DL HDL CHOLESTEROL (test code = 2220) 28 MG/DL CALC LDL CHOL (test code = 2237) 116 MG/DL RISK RATIO LDL/HDL (test cod e = 2238) 4.14 RATIO COMPREHENSIVE METABOLIC [id number] 00:00:00* Test Item Value Reference Range Interpretation Comme nts GLUCOSE (test code = 2217) 162 MG/DL BUN (test code = 2208) 8 MG/DL CREATININE (test code = 2214) 0.74 MG/DL eGFR (2020 CKD-EPI) (test co de = 15111) 89 ML/MIN/1.73 CALC BUN/CREAT (test code = 2235) 11 RATIO SODIUM (test code = 2231) 143 MEQ/L POTASSIUM (test code = 2228) 4.1 MEQ/L CHLORIDE (test code = 2215) 104 MEQ/L CARBON DIOXIDE (test code = 6) 22 MEQ/L CALCIUM (test code = 2209) 9.4 MG/DL PROTEIN, TOTAL (test code = 2229) 7.3 G/DL ALBUMIN (test code = 2201) 4.4 G/DL CALC GLOBULIN (test code = 2240) 2.9 G/DL CALC A/G RATIO (test code = 2234) 1.5 RATIO BILIRUBIN, TOTAL (test code = 2207) 0.4 MG/DL ALKALINE PHOSPHATASE (test code = 2204) 121 U/L AST (test code = 2218) 8 U/L ALT (test code = 2219) 6 U/L [id number] 00:00:00* Test Item Value Reference Range Interpretation Comme nts TSH, THIRD GENERATION (test code = 2821) 1.700 UIU/ML HEMOGLOBIN [id number] 00:00:00* Test Item Value Reference Range Interpretation Comme nts HEMOGLOBIN A1c (test code = 75110) 7.6 % LIPID [id number] 00:00:00* Test Item Value Reference Range Interpretation Comme nts CHOLESTEROL (test code = 2210) 181 MG/DL TRIGLYCERIDES (test code = 2232) 257 MG/DL HDL CHOLESTEROL (test code = 2220) 28 MG/DL CALC LDL CHOL (test code = 2237) 116 MG/DL RISK RATIO LDL/HDL (test cod e = 2238) 4.14 RATIO COMPREHENSIVE METABOLIC [id number] 00:00:00* Test Item Value Reference Range Interpretation Comme nts GLUCOSE (test code = 2217) 162 MG/DL BUN (test code = 2208) 8 MG/DL CREATININE (test code = 2214) 0.74 MG/DL eGFR (2020 CKD-EPI) (test co de = 41925) 89 ML/MIN/1.73 CALC BUN/CREAT (test code = 2235) 11 RATIO SODIUM (test code = 2231) 143 MEQ/L POTASSIUM (test code = 2228) 4.1 MEQ/L CHLORIDE (test code = 2215) 104 MEQ/L CARBON DIOXIDE (test code = 2206) 22 MEQ/L CALCIUM (test code = 2209) 9.4 MG/DL PROTEIN, TOTAL (test code = 2229) 7.3 G/DL ALBUMIN (test code = 2201) 4.4 G/DL CALC GLOBULIN (test code = 2240) 2.9 G/DL CALC A/G RATIO (test code = 2234) 1.5 RATIO BILIRUBIN, TOTAL (test code = 2207) 0.4 MG/DL ALKALINE PHOSPHATASE (test code = 2204) 121 U/L AST (test code = 2218) 8 U/L ALT (test code = 2219) 6 U/L [id number] 00:00:00* Test Item Value Reference Range Interpretation Comme nts TSH, THIRD GENERATION (test code = 2821) 1.700 UIU/ML HEMOGLOBIN [id number] 00:00:00* Test Item Value Reference Range Interpretation Comme nts HEMOGLOBIN A1c (test code = 64775) 7.6 % LIPID [id number] 00:00:00* Test Item Value Reference Range Interpretation Comme nts CHOLESTEROL (test code = 2210) 181 MG/DL TRIGLYCERIDES (test code = 2232) 257 MG/DL HDL CHOLESTEROL (test code = 2220) 28 MG/DL CALC LDL CHOL (test code = 2237) 116 MG/DL RISK RATIO LDL/HDL (test cod e = 2238) 4.14 RATIO COMPREHENSIVE METABOLIC [id number] 00:00:00* Test Item Value Reference Range Interpretation Comme nts GLUCOSE (test code = 2217) 162 MG/DL BUN (test code = 2208) 8 MG/DL CREATININE (test code = 2214) 0.74 MG/DL eGFR (2020 CKD-EPI) (test co de = 42333) 89 ML/MIN/1.73 CALC BUN/CREAT (test code = 2235) 11 RATIO SODIUM (test code = 2231) 143 MEQ/L POTASSIUM (test code = 2228) 4.1 MEQ/L CHLORIDE (test code = 2215) 104 MEQ/L CARBON DIOXIDE (test code = 2206) 22 MEQ/L CALCIUM (test code = 2209) 9.4 MG/DL PROTEIN, TOTAL (test code = 2229) 7.3 G/DL ALBUMIN (test code = 2201) 4.4 G/DL CALC GLOBULIN (test code = 2240) 2.9 G/DL CALC A/G RATIO (test code = 2234) 1.5 RATIO BILIRUBIN, TOTAL (test code = 2207) 0.4 MG/DL ALKALINE PHOSPHATASE (test code = 2204) 121 U/L AST (test code = 2218) 8 U/L ALT (test code = 2219) 6 U/L [id number] 00:00:00* Test Item Value Reference Range Interpretation Comme nts TSH, THIRD GENERATION (test code = 2821) 1.700 UIU/ML HEMOGLOBIN [id number] 00:00:00* Test Item Value Reference Range Interpretation Comme nts HEMOGLOBIN A1c (test code = 75016) 7.6 % HEMOGLOBIN [id number] 00:00:00* Test Item Value Reference Range Interpretation Comme nts HEMOGLOBIN A1c (test code = 35440) 7.6 % LIPID [id number] 00:00:00* Test Item Value Reference Range Interpretation Comme nts CHOLESTEROL (test code = 2210) 181 MG/DL TRIGLYCERIDES (test code = 2232) 257 MG/DL HDL CHOLESTEROL (test code = 2220) 28 MG/DL CALC LDL CHOL (test code = 2237) 116 MG/DL RISK RATIO LDL/HDL (test cod e = 2238) 4.14 RATIO COMPREHENSIVE METABOLIC [id number] 00:00:00* Test Item Value Reference Range Interpretation Comme nts GLUCOSE (test code = 2217) 162 MG/DL BUN (test code = 2208) 8 MG/DL CREATININE (test code = 2214) 0.74 MG/DL eGFR (2020 CKD-EPI) (test co de = 69048) 89 ML/MIN/1.73 CALC BUN/CREAT (test code = 2235) 11 RATIO SODIUM (test code = 2231) 143 MEQ/L POTASSIUM (test code = 2228) 4.1 MEQ/L CHLORIDE (test code = 2215) 104 MEQ/L CARBON DIOXIDE (test code = 2206) 22 MEQ/L CALCIUM (test code = 2209) 9.4 MG/DL PROTEIN, TOTAL (test code = 2229) 7.3 G/DL ALBUMIN (test code = 2201) 4.4 G/DL CALC GLOBULIN (test code = 2240) 2.9 G/DL CALC A/G RATIO (test code = 2234) 1.5 RATIO BILIRUBIN, TOTAL (test code = 2207) 0.4 MG/DL ALKALINE PHOSPHATASE (test code = 2204) 121 U/L AST (test code = 2218) 8 U/L ALT (test code = 2219) 6 U/L [id number] 00:00:00* Test Item Value Reference Range Interpretation Comme nts TSH, THIRD GENERATION (test code = 2821) 1.700 UIU/ML LIPID [id number] 00:00:00* Test Item Value Reference Range Interpretation Comme nts CHOLESTEROL (test code = 2210) 181 MG/DL TRIGLYCERIDES (test code = 2232) 257 MG/DL HDL CHOLESTEROL (test code = 2220) 28 MG/DL CALC LDL CHOL (test code = 2237) 116 MG/DL RISK RATIO LDL/HDL (test cod e = 2238) 4.14 RATIO COMPREHENSIVE METABOLIC [id number] 00:00:00* Test Item Value Reference Range Interpretation Comme nts GLUCOSE (test code = 2217) 162 MG/DL BUN (test code = 2208) 8 MG/DL CREATININE (test code = 2214) 0.74 MG/DL eGFR (2020 CKD-EPI) (test co de = 43772) 89 ML/MIN/1.73 CALC BUN/CREAT (test code = 2235) 11 RATIO SODIUM (test code = 2231) 143 MEQ/L POTASSIUM (test code = 2228) 4.1 MEQ/L CHLORIDE (test code = 2215) 104 MEQ/L CARBON DIOXIDE (test code = 2206) 22 MEQ/L CALCIUM (test code = 2209) 9.4 MG/DL PROTEIN, TOTAL (test code = 2229) 7.3 G/DL ALBUMIN (test code = 2201) 4.4 G/DL CALC GLOBULIN (test code = 2240) 2.9 G/DL CALC A/G RATIO (test code = 2234) 1.5 RATIO BILIRUBIN, TOTAL (test code = 2207) 0.4 MG/DL ALKALINE PHOSPHATASE (test code = 2204) 121 U/L AST (test code = 2218) 8 U/L ALT (test code = 2219) 6 U/L [id number] 00:00:00* Test Item Value Reference Range Interpretation Comme nts TSH, THIRD GENERATION (test code = 2821) 1.700 UIU/ML HEMOGLOBIN [id number] 00:00:00* Test Item Value Reference Range Interpretation Comme nts HEMOGLOBIN A1c (test code = 30038) 7.6 % LIPID [id number] 00:00:00* Test Item Value Reference Range Interpretation Comme nts CHOLESTEROL (test code = 2210) 181 MG/DL TRIGLYCERIDES (test code = 2232) 257 MG/DL HDL CHOLESTEROL (test code = 2220) 28 MG/DL CALC LDL CHOL (test code = 2237) 116 MG/DL RISK RATIO LDL/HDL (test cod e = 2238) 4.14 RATIO COMPREHENSIVE METABOLIC [id number] 00:00:00* Test Item Value Reference Range Interpretation Comme nts GLUCOSE (test code = 2217) 162 MG/DL BUN (test code = 2208) 8 MG/DL CREATININE (test code = 2214) 0.74 MG/DL eGFR (2020 CKD-EPI) (test co de = 40551) 89 ML/MIN/1.73 CALC BUN/CREAT (test code = 2235) 11 RATIO SODIUM (test code = 2231) 143 MEQ/L POTASSIUM (test code = 2228) 4.1 MEQ/L CHLORIDE (test code = 2215) 104 MEQ/L CARBON DIOXIDE (test code = 2206) 22 MEQ/L CALCIUM (test code = 2209) 9.4 MG/DL PROTEIN, TOTAL (test code = 2229) 7.3 G/DL ALBUMIN (test code = 2201) 4.4 G/DL CALC GLOBULIN (test code = 2240) 2.9 G/DL CALC A/G RATIO (test code = 2234) 1.5 RATIO BILIRUBIN, TOTAL (test code = 2207) 0.4 MG/DL ALKALINE PHOSPHATASE (test code = 2204) 121 U/L AST (test code = 2218) 8 U/L ALT (test code = 2219) 6 U/L [id number] 00:00:00* Test Item Value Reference Range Interpretation Comme [facility] TSH, THIRD GENERATION (test code = 2821) 1.700 UIU/ML HEMOGLOBIN [id number] 00:00:00* Test Item Value Reference Range Interpretation Comme nts HEMOGLOBIN A1c (test code = 04427) 7.6 % LIPID [id number] 00:00:00* Test Item Value Reference Range Interpretation Comme nts CHOLESTEROL (test code = 2210) 181 MG/DL TRIGLYCERIDES (test code = 2232) 257 MG/DL HDL CHOLESTEROL (test code = 2220) 28 MG/DL CALC LDL CHOL (test code = 2237) 116 MG/DL RISK RATIO LDL/HDL (test cod e = 2238) 4.14 RATIO COMPREHENSIVE METABOLIC [id number] 00:00:00* Test Item Value Reference Range Interpretation Comme nts GLUCOSE (test code = 2217) 162 MG/DL BUN (test code = 2208) 8 MG/DL CREATININE (test code = 2214) 0.74 MG/DL eGFR (2020 CKD-EPI) (test co de = 44463) 89 ML/MIN/1.73 CALC BUN/CREAT (test code = 2235) 11 RATIO SODIUM (test code = 2231) 143 MEQ/L POTASSIUM (test code = 2228) 4.1 MEQ/L CHLORIDE (test code = 2215) 104 MEQ/L CARBON DIOXIDE (test code = 2206) 22 MEQ/L CALCIUM (test code = 2209) 9.4 MG/DL PROTEIN, TOTAL (test code = 2229) 7.3 G/DL ALBUMIN (test code = 2201) 4.4 G/DL CALC GLOBULIN (test code = 2240) 2.9 G/DL CALC A/G RATIO (test code = 2234) 1.5 RATIO BILIRUBIN, TOTAL (test code = 2207) 0.4 MG/DL ALKALINE PHOSPHATASE (test code = 2204) 121 U/L AST (test code = 2218) 8 U/L ALT (test code = 2219) 6 U/L HEMOGLOBIN [id number] 00:00:00* Test Item Value Reference Range Interpretation Comme nts HEMOGLOBIN A1c (test code = 58838) 7.6 % Topher Cam [id number] 00:00:00* Test Item Value Reference Range Interpretation Comme nts TSH, THIRD GENERATION (test code = 2821) 1.700 UIU/ML Topher BrownHEMOGLOBIN [id number] 00:00:00* Test Item Value Reference Range Interpretation Comme nts HEMOGLOBIN A1c (test code = 06439) 7.6 % Topher BrownLIPID [id number] 00:00:00* Test Item Value Reference Range Interpretation Comme nts CHOLESTEROL (test code = 2210) 181 MG/DL TRIGLYCERIDES (test code = 2232) 257 MG/DL HDL CHOLESTEROL (test code = 2220) 28 MG/DL CALC LDL CHOL (test code = 2237) 116 MG/DL RISK RATIO LDL/HDL (test cod e = 2238) 4.14 RATIO Topher BrownCOMPREHENSIVE METABOLIC [id number] 00:00:00* Test Item Value Reference Range Interpretation Comme nts GLUCOSE (test code = 2217) 162 MG/DL BUN (test code = 2208) 8 MG/DL CREATININE (test code = 2214) 0.74 MG/DL eGFR (2020 CKD-EPI) (test co de = 67770) 89 ML/MIN/1.73 CALC BUN/CREAT (test code = 2235) 11 RATIO SODIUM (test code = 2231) 143 MEQ/L POTASSIUM (test code = 2228) 4.1 MEQ/L CHLORIDE (test code = 2215) 104 MEQ/L CARBON DIOXIDE (test code = 2206) 22 MEQ/L CALCIUM (test code = 2209) 9.4 MG/DL PROTEIN, TOTAL (test code = 2229) 7.3 G/DL ALBUMIN (test code = 2201) 4.4 G/DL CALC GLOBULIN (test code = 2240) 2.9 G/DL CALC A/G RATIO (test code = 2234) 1.5 RATIO BILIRUBIN, TOTAL (test code = 2207) 0.4 MG/DL ALKALINE PHOSPHATASE (test code = 2204) 121 U/L AST (test code = 2218) 8 U/L ALT (test code = 2219) 6 U/L Topher [id number] 00:00:00* Test Item Value Reference Range Interpretation Comme [facility] TSH, THIRD GENERATION (test code = 2821) 1.700 UIU/ML Topher BrownHEMOGLOBIN [id number] 00:00:00* Test Item Value Reference Range Interpretation Comme [facility] HEMOGLOBIN A1c (test code = 16414) 7.6 % Topher BrownLIPID [id number] 00:00:00* Test Item Value Reference Range Interpretation Comme nts CHOLESTEROL (test code = 2210) 181 MG/DL TRIGLYCERIDES (test code = 2232) 257 MG/DL HDL CHOLESTEROL (test code = 2220) 28 MG/DL CALC LDL CHOL (test code = 2237) 116 MG/DL RISK RATIO LDL/HDL (test cod e = 2238) 4.14 RATIO Topher BrownCOMPREHENSIVE METABOLIC [id number] 00:00:00* Test Item Value Reference Range Interpretation Comme nts GLUCOSE (test code = 2217) 162 MG/DL BUN (test code = 2208) 8 MG/DL CREATININE (test code = 2214) 0.74 MG/DL eGFR (2020 CKD-EPI) (test co de = 77596) 89 ML/MIN/1.73 CALC BUN/CREAT (test code = 2235) 11 RATIO SODIUM (test code = 2231) 143 MEQ/L POTASSIUM (test code = 2228) 4.1 MEQ/L CHLORIDE (test code = 2215) 104 MEQ/L CARBON DIOXIDE (test code = 2206) 22 MEQ/L CALCIUM (test code = 2209) 9.4 MG/DL PROTEIN, TOTAL (test code = 2229) 7.3 G/DL ALBUMIN (test code = 2201) 4.4 G/DL CALC GLOBULIN (test code = 2240) 2.9 G/DL CALC A/G RATIO (test code = 2234) 1.5 RATIO BILIRUBIN, TOTAL (test code = 2207) 0.4 MG/DL ALKALINE PHOSPHATASE (test code = 2204) 121 U/L AST (test code = 2218) 8 U/L ALT (test code = 2219) 6 U/L Topher [id number] 00:00:00* Test Item Value Reference Range Interpretation Comme nts TSH, THIRD GENERATION (test code = 2821) 1.700 UIU/ML Topher BrownLIPID [id number] 00:00:00* Test Item Value Reference Range Interpretation Comme nts CHOLESTEROL (test code = 2210) 181 MG/DL TRIGLYCERIDES (test code = 2232) 257 MG/DL HDL CHOLESTEROL (test code = 2220) 28 MG/DL CALC LDL CHOL (test code = 2237) 116 MG/DL RISK RATIO LDL/HDL (test cod e = 2238) 4.14 RATIO Topher BrownHEMOGLOBIN [id number] 00:00:00* Test Item Value Reference Range Interpretation Comme nts HEMOGLOBIN A1c (test code = 17455) 7.6 % Topher BrownLIPID [id number] 00:00:00* Test Item Value Reference Range Interpretation Comme nts CHOLESTEROL (test code = 2210) 181 MG/DL TRIGLYCERIDES (test code = 2232) 257 MG/DL HDL CHOLESTEROL (test code = 2220) 28 MG/DL CALC LDL CHOL (test code = 2237) 116 MG/DL RISK RATIO LDL/HDL (test cod e = 2238) 4.14 RATIO Topher BrownCOMPREHENSIVE METABOLIC [id number] 00:00:00* Test Item Value Reference Range Interpretation Comme nts GLUCOSE (test code = 2217) 162 MG/DL BUN (test code = 2208) 8 MG/DL CREATININE (test code = 2214) 0.74 MG/DL eGFR (2020 CKD-EPI) (test co de = 72729) 89 ML/MIN/1.73 CALC BUN/CREAT (test code = 2235) 11 RATIO SODIUM (test code = 2231) 143 MEQ/L POTASSIUM (test code = 2228) 4.1 MEQ/L CHLORIDE (test code = 2215) 104 MEQ/L CARBON DIOXIDE (test code = 2206) 22 MEQ/L CALCIUM (test code = 2209) 9.4 MG/DL PROTEIN, TOTAL (test code = 2229) 7.3 G/DL ALBUMIN (test code = 2201) 4.4 G/DL CALC GLOBULIN (test code = 2240) 2.9 G/DL CALC A/G RATIO (test code = 2234) 1.5 RATIO BILIRUBIN, TOTAL (test code = 2207) 0.4 MG/DL ALKALINE PHOSPHATASE (test code = 2204) 121 U/L AST (test code = 2218) 8 U/L ALT (test code = 2219) 6 U/L Topher [id number] 00:00:00* Test Item Value Reference Range Interpretation Comme nts TSH, THIRD GENERATION (test code = 2821) 1.700 UIU/ML [facility] BrownST[facility] CENTERPREHENSIVE METABOLIC [id number] 00:00:00* Test Item Value Reference Range Interpretation Comme nts GLUCOSE (test code = 2217) 162 MG/DL BUN (test code = 2208) 8 MG/DL CREATININE (test code = 2214) 0.74 MG/DL eGFR (2020 CKD-EPI) (test co de = 79662) 89 ML/MIN/1.73 CALC BUN/CREAT (test code = 2235) 11 RATIO SODIUM (test code = 2231) 143 MEQ/L POTASSIUM (test code = 2228) 4.1 MEQ/L CHLORIDE (test code = 2215) 104 MEQ/L CARBON DIOXIDE (test code = 2206) 22 MEQ/L CALCIUM (test code = 2209) 9.4 MG/DL PROTEIN, TOTAL (test code = 2229) 7.3 G/DL ALBUMIN (test code = 2201) 4.4 G/DL CALC GLOBULIN (test code = 2240) 2.9 G/DL CALC A/G RATIO (test code = 2234) 1.5 RATIO BILIRUBIN, TOTAL (test code = 2207) 0.4 MG/DL ALKALINE PHOSPHATASE (test code = 2204) 121 U/L AST (test code = 2218) 8 U/L ALT (test code = 2219) 6 U/L Topher [id number] 00:00:00* Test Item Value Reference Range Interpretation Comme [facility] TSH, THIRD GENERATION (test code = 2821) 1.700 UIU/ML Topher BrownHEMOGLOBIN [id number] 00:00:00* Test Item Value Reference Range Interpretation Comme [facility] HEMOGLOBIN A1c (test code = 87827) 7.6 % Topher BrownLIPID [id number] 00:00:00* Test Item Value Reference Range Interpretation Comme nts CHOLESTEROL (test code = 2210) 181 MG/DL TRIGLYCERIDES (test code = 2232) 257 MG/DL HDL CHOLESTEROL (test code = 2220) 28 MG/DL CALC LDL CHOL (test code = 2237) 116 MG/DL RISK RATIO LDL/HDL (test cod e = 2238) 4.14 RATIO Topher BrownCOMPREHENSIVE METABOLIC [id number] 00:00:00* Test Item Value Reference Range Interpretation Comme nts GLUCOSE (test code = 2217) 162 MG/DL BUN (test code = 2208) 8 MG/DL CREATININE (test code = 2214) 0.74 MG/DL eGFR (2020 CKD-EPI) (test co de = 94040) 89 ML/MIN/1.73 CALC BUN/CREAT (test code = 2235) 11 RATIO SODIUM (test code = 2231) 143 MEQ/L POTASSIUM (test code = 2228) 4.1 MEQ/L CHLORIDE (test code = 2215) 104 MEQ/L CARBON DIOXIDE (test code = 2206) 22 MEQ/L CALCIUM (test code = 2209) 9.4 MG/DL PROTEIN, TOTAL (test code = 2229) 7.3 G/DL ALBUMIN (test code = 2201) 4.4 G/DL CALC GLOBULIN (test code = 2240) 2.9 G/DL CALC A/G RATIO (test code = 2234) 1.5 RATIO BILIRUBIN, TOTAL (test code = 2207) 0.4 MG/DL ALKALINE PHOSPHATASE (test code = 2204) 121 U/L AST (test code = 2218) 8 U/L ALT (test code = 2219) 6 U/L Topher [id number] 00:00:00* Test Item Value Reference Range Interpretation Comme [facility] TSH, THIRD GENERATION (test code = 2821) 1.700 UIU/ML Topher BrownHEMOGLOBIN [id number] 00:00:00* Test Item Value Reference Range Interpretation Comme [facility] HEMOGLOBIN A1c (test code = 26591) 7.6 % Topher BrownLIPID [id number] 00:00:00* Test Item Value Reference Range Interpretation Comme nts CHOLESTEROL (test code = 2210) 181 MG/DL TRIGLYCERIDES (test code = 2232) 257 MG/DL HDL CHOLESTEROL (test code = 2220) 28 MG/DL CALC LDL CHOL (test code = 2237) 116 MG/DL RISK RATIO LDL/HDL (test cod e = 2238) 4.14 RATIO Topher BrownCOMPREHENSIVE METABOLIC [id number] 00:00:00* Test Item Value Reference Range Interpretation Comme nts GLUCOSE (test code = 2217) 162 MG/DL BUN (test code = 2208) 8 MG/DL CREATININE (test code = 2214) 0.74 MG/DL eGFR (2020 CKD-EPI) (test co de = 80554) 89 ML/MIN/1.73 CALC BUN/CREAT (test code = 2235) 11 RATIO SODIUM (test code = 2231) 143 MEQ/L POTASSIUM (test code = 2228) 4.1 MEQ/L CHLORIDE (test code = 2215) 104 MEQ/L CARBON DIOXIDE (test code = 2206) 22 MEQ/L CALCIUM (test code = 2209) 9.4 MG/DL PROTEIN, TOTAL (test code = 2229) 7.3 G/DL ALBUMIN (test code = 2201) 4.4 G/DL CALC GLOBULIN (test code = 2240) 2.9 G/DL CALC A/G RATIO (test code = 2234) 1.5 RATIO BILIRUBIN, TOTAL (test code = 2207) 0.4 MG/DL ALKALINE PHOSPHATASE (test code = 2204) 121 U/L AST (test code = 2218) 8 U/L ALT (test code = 2219) 6 U/L Topher [id number] 00:00:00* Test Item Value Reference Range Interpretation Comme nts TSH, THIRD GENERATION (test code = 2821) 1.700 UIU/ML Topher BrownHEMOGLOBIN [id number] 00:00:00* Test Item Value Reference Range Interpretation Comme nts HEMOGLOBIN A1c (test code = 34345) 7.6 % Topher BrownLIPID [id number] 00:00:00* Test Item Value Reference Range Interpretation Comme nts CHOLESTEROL (test code = 2210) 181 MG/DL TRIGLYCERIDES (test code = 2232) 257 MG/DL HDL CHOLESTEROL (test code = 2220) 28 MG/DL CALC LDL CHOL (test code = 2237) 116 MG/DL RISK RATIO LDL/HDL (test cod e = 2238) 4.14 RATIO Topher BrownCOMPREHENSIVE METABOLIC [id number] 00:00:00* Test Item Value Reference Range Interpretation Comme nts GLUCOSE (test code = 2217) 162 MG/DL BUN (test code = 2208) 8 MG/DL CREATININE (test code = 2214) 0.74 MG/DL eGFR (2020 CKD-EPI) (test co de = 41017) 89 ML/MIN/1.73 CALC BUN/CREAT (test code = 2235) 11 RATIO SODIUM (test code = 2231) 143 MEQ/L POTASSIUM (test code = 2228) 4.1 MEQ/L CHLORIDE (test code = 2215) 104 MEQ/L CARBON DIOXIDE (test code = 2206) 22 MEQ/L CALCIUM (test code = 2209) 9.4 MG/DL PROTEIN, TOTAL (test code = 2229) 7.3 G/DL ALBUMIN (test code = 2201) 4.4 G/DL CALC GLOBULIN (test code = 2240) 2.9 G/DL CALC A/G RATIO (test code = 2234) 1.5 RATIO BILIRUBIN, TOTAL (test code = 2207) 0.4 MG/DL ALKALINE PHOSPHATASE (test code = 2204) 121 U/L AST (test code = 2218) 8 U/L ALT (test code = 2219) 6 U/L Topher [id number] 00:00:00* Test Item Value Reference Range Interpretation Comme [facility] TSH, THIRD GENERATION (test code = 2821) 1.700 UIU/ML Topher BrownHEMOGLOBIN [id number] 00:00:00* Test Item Value Reference Range Interpretation Comme [facility] HEMOGLOBIN A1c (test code = 82365) 7.6 % Topher BrownLIPID [id number] 00:00:00* Test Item Value Reference Range Interpretation Comme nts CHOLESTEROL (test code = 2210) 181 MG/DL TRIGLYCERIDES (test code = 2232) 257 MG/DL HDL CHOLESTEROL (test code = 2220) 28 MG/DL CALC LDL CHOL (test code = 2237) 116 MG/DL RISK RATIO LDL/HDL (test cod e = 2238) 4.14 RATIO Topher BrownCOMPREHENSIVE METABOLIC [id number] 00:00:00* Test Item Value Reference Range Interpretation Comme nts GLUCOSE (test code = 2217) 162 MG/DL BUN (test code = 2208) 8 MG/DL CREATININE (test code = 2214) 0.74 MG/DL eGFR (2020 CKD-EPI) (test co de = 09849) 89 ML/MIN/1.73 CALC BUN/CREAT (test code = 2235) 11 RATIO SODIUM (test code = 2231) 143 MEQ/L POTASSIUM (test code = 2228) 4.1 MEQ/L CHLORIDE (test code = 2215) 104 MEQ/L CARBON DIOXIDE (test code = 2206) 22 MEQ/L CALCIUM (test code = 2209) 9.4 MG/DL PROTEIN, TOTAL (test code = 2229) 7.3 G/DL ALBUMIN (test code = 2201) 4.4 G/DL CALC GLOBULIN (test code = 2240) 2.9 G/DL CALC A/G RATIO (test code = 2234) 1.5 RATIO BILIRUBIN, TOTAL (test code = 2207) 0.4 MG/DL ALKALINE PHOSPHATASE (test code = 2204) 121 U/L AST (test code = 2218) 8 U/L ALT (test code = 2219) 6 U/L Topher [id number] 00:00:00* Test Item Value Reference Range Interpretation Comme nts TSH, THIRD GENERATION (test code = 2821) 1.700 UIU/ML Topher BrownVAGINAL PATHOGENS DNA [id number] 00:00:00* Test Item Value Reference Range Interpretation Comme nts ASHLEIGH SPECIES (test code = 23962) POSITIVE G. VAGINALIS (test code = 71507) NEGATIVE T. VAGINALIS (test code = 84030) NEGATIVE Topher Cam AustinVAGINAL PATHOGENS DNA [id number] 00:00:00* Test Item Value Reference Range Interpretation Comme nts ASHLEIGH SPECIES (test code = 19608) POSITIVE G. VAGINALIS (test code = 74541) NEGATIVE T. VAGINALIS (test code = 99052) NEGATIVE VAGINAL PATHOGENS DNA [id number] 00:00:00* Test Item Value Reference Range Interpretation Comme nts ASHLEIGH SPECIES (test code = 09246) POSITIVE G. VAGINALIS (test code = 84211) NEGATIVE T. VAGINALIS (test code = 79429) NEGATIVE VAGINAL PATHOGENS DNA [id number] 00:00:00* Test Item Value Reference Range Interpretation Comme nts ASHLEIGH SPECIES (test code = 49341) POSITIVE G. VAGINALIS (test code = 07757) NEGATIVE T. VAGINALIS (test code = 27764) NEGATIVE VAGINAL PATHOGENS DNA [id number] 00:00:00* Test Item Value Reference Range Interpretation Comme nts ASHLEIGH SPECIES (test code = 86500) POSITIVE G. VAGINALIS (test code = 89171) NEGATIVE T. VAGINALIS (test code = 47310) NEGATIVE VAGINAL PATHOGENS DNA [id number] 00:00:00* Test Item Value Reference Range Interpretation Comme nts ASHLEIGH SPECIES (test code = 76254) POSITIVE G. VAGINALIS (test code = 86791) NEGATIVE T. VAGINALIS (test code = 46502) NEGATIVE VAGINAL PATHOGENS DNA [id number] 00:00:00* Test Item Value Reference Range Interpretation Comme nts ASHLEIGH SPECIES (test code = 77207) POSITIVE G. VAGINALIS (test code = 73255) NEGATIVE T. VAGINALIS (test code = 91179) NEGATIVE VAGINAL PATHOGENS DNA [id number] 00:00:00* Test Item Value Reference Range Interpretation Comme nts ASHLEIGH SPECIES (test code = 51007) POSITIVE G. VAGINALIS (test code = 94607) NEGATIVE T. VAGINALIS (test code = 38726) NEGATIVE VAGINAL PATHOGENS DNA [id number] 00:00:00* Test Item Value Reference Range Interpretation Comme nts ASHLEIGH SPECIES (test code = 66005) POSITIVE G. VAGINALIS (test code = 43342) NEGATIVE T. VAGINALIS (test code = 97544) NEGATIVE VAGINAL PATHOGENS DNA [id number] 00:00:00* Test Item Value Reference Range Interpretation Comme nts ASHLEIGH SPECIES (test code = 57477) POSITIVE G. VAGINALIS (test code = 60919) NEGATIVE T. VAGINALIS (test code = 74469) NEGATIVE Topher F AustinVAGINAL PATHOGENS DNA [id number] 00:00:00* Test Item Value Reference Range Interpretation Comme nts ASHLEIGH SPECIES (test code = 44938) POSITIVE G. VAGINALIS (test code = 86675) NEGATIVE T. VAGINALIS (test code = 50420) NEGATIVE Topher F AustinVAGINAL PATHOGENS DNA [id number] 00:00:00* Test Item Value Reference Range Interpretation Comme nts ASHLEIGH SPECIES (test code = 10219) POSITIVE G. VAGINALIS (test code = 90944) NEGATIVE T. VAGINALIS (test code = 55586) NEGATIVE Topher F AustinVAGINAL PATHOGENS DNA [id number] 00:00:00* Test Item Value Reference Range Interpretation Comme nts ASHLEIGH SPECIES (test code = 45795) POSITIVE G. VAGINALIS (test code = 32627) NEGATIVE T. VAGINALIS (test code = 41894) NEGATIVE Topher F AustinVAGINAL PATHOGENS DNA [id number] 00:00:00* Test Item Value Reference Range Interpretation Comme nts ASHLEIGH SPECIES (test code = 83255) POSITIVE G. VAGINALIS (test code = 87171) NEGATIVE T. VAGINALIS (test code = 80866) NEGATIVE Topher F AustinVAGINAL PATHOGENS DNA [id number] 00:00:00* Test Item Value Reference Range Interpretation Comme nts ASHLEIGH SPECIES (test code = 96930) POSITIVE G. VAGINALIS (test code = 05092) NEGATIVE T. VAGINALIS (test code = 47821) NEGATIVE Topher F AustinVAGINAL PATHOGENS DNA [id number] 00:00:00* Test Item Value Reference Range Interpretation Comme nts ASHLEIGH SPECIES (test code = ) POSITIVE G. VAGINALIS (test code = 04538) NEGATIVE T. VAGINALIS (test code = 48960) NEGATIVE Topher BrownVAGINAL PATHOGENS DNA [id number] 00:00:00* Test Item Value Reference Range Interpretation Comme nts ASHLEIGH SPECIES (test code = ) POSITIVE G. VAGINALIS (test code = 54001) NEGATIVE T. VAGINALIS (test code = 52188) NEGATIVE Topher BrownCOMPREHENSIVE METABOLIC [id number] 00:00:00* Test Item Value Reference Range Interpretation Comme nts GLUCOSE (test code = 2217) 101 MG/DL BUN (test code = 2208) 7 MG/DL CREATININE (test code = 2214) 0.70 MG/DL eGFR AMER. (test cod e = 03356) 105 ML/MIN/1.73 eGFR NON- AMER. (test code = 40122) 90 ML/MIN/1.73 CALC BUN/CREAT (test code = 2235) 10 RATIO SODIUM (test code = 2231) 137 MEQ/L POTASSIUM (test code = 2228) 3.5 MEQ/L CHLORIDE (test code = 2215) 99 MEQ/L CARBON DIOXIDE (test code = 2206) 26 MEQ/L CALCIUM (test code = 2209) 9.2 MG/DL PROTEIN, TOTAL (test code = 2229) 7.5 G/DL ALBUMIN (test code = 2201) 4.5 G/DL CALC GLOBULIN (test code = 2240) 3.0 G/DL CALC A/G RATIO (test code = 2234) 1.5 RATIO BILIRUBIN, TOTAL (test code = 2207) 0.3 MG/DL ALKALINE PHOSPHATASE (test code = 2204) 106 U/L AST (test code = 2218) 11 U/L ALT (test code = 2219) 9 U/L Topher BrownCBC W/AUTO [id number] 00:00:00* Test Item Value Reference Range Interpretation Comme nts WBC (test code = 1001) 7.2 K/UL RBC (test code = 1002) 4.97 M/UL HEMOGLOBIN (test code = 1003) 14.5 G/DL HEMATOCRIT (test code = 1004) 42.2 % MCV (test code = 1005) 84.9 fL MCH (test code = 1006) 29.2 PG MCHC (test code = 1007) 34.4 G/DL RDW (test code = 1038) 12.9 % NEUTROPHILS (test code = 1008) 46.2 % LYMPHOCYTES (test code = 1010) 41.3 % MONOCYTES (test code = 1011) 8.6 % EOSINOPHILS (test code = 1012) 3.5 % BASOPHILS (test code = 1013) 0.4 % PLATELET COUNT (test code = 1015) 363 K/UL Topher Cam AustinLIPID [id number] 00:00:00* Test Item Value Reference Range Interpretation Comme nts CHOLESTEROL (test code = 2210) 216 MG/DL TRIGLYCERIDES (test code = 2232) 269 MG/DL HDL CHOLESTEROL (test code = 2220) 29 MG/DL CALC LDL CHOL (test code = 2237) 146 MG/DL RISK RATIO LDL/HDL (test cod e = 2238) 5.03 RATIO Topher [id number] 00:00:00* Test Item Value Reference Range Interpretation Comme nts TSH, THIRD GENERATION (test code = 2821) 1.940 UIU/ML COMPREHENSIVE METABOLIC [id number] 00:00:00* Test Item Value Reference Range Interpretation Comme nts GLUCOSE (test code = 2217) 101 MG/DL BUN (test code = 2208) 7 MG/DL CREATININE (test code = 2214) 0.70 MG/DL eGFR AMER. (test cod e = 53576) 105 ML/MIN/1.73 eGFR NON- AMER. (test code = 79643) 90 ML/MIN/1.73 CALC BUN/CREAT (test code = 2235) 10 RATIO SODIUM (test code = 2231) 137 MEQ/L POTASSIUM (test code = 2228) 3.5 MEQ/L CHLORIDE (test code = 2215) 99 MEQ/L CARBON DIOXIDE (test code = 2206) 26 MEQ/L CALCIUM (test code = 2209) 9.2 MG/DL PROTEIN, TOTAL (test code = 2229) 7.5 G/DL ALBUMIN (test code = 2201) 4.5 G/DL CALC GLOBULIN (test code = 2240) 3.0 G/DL CALC A/G RATIO (test code = 2234) 1.5 RATIO BILIRUBIN, TOTAL (test code = 2207) 0.3 MG/DL ALKALINE PHOSPHATASE (test code = 2204) 106 U/L AST (test code = 2218) 11 U/L ALT (test code = 2219) 9 U/L CBC W/AUTO [id number] 00:00:00* Test Item Value Reference Range Interpretation Comme nts WBC (test code = 1001) 7.2 K/UL RBC (test code = 1002) 4.97 M/UL HEMOGLOBIN (test code = 1003) 14.5 G/DL HEMATOCRIT (test code = 1004) 42.2 % MCV (test code = 1005) 84.9 fL MCH (test code = 1006) 29.2 PG MCHC (test code = 1007) 34.4 G/DL RDW (test code = 1038) 12.9 % NEUTROPHILS (test code = 1008) 46.2 % LYMPHOCYTES (test code = 1010) 41.3 % MONOCYTES (test code = 1011) 8.6 % EOSINOPHILS (test code = 1012) 3.5 % BASOPHILS (test code = 1013) 0.4 % PLATELET COUNT (test code = 1015) 363 K/UL LIPID [id number] 00:00:00* Test Item Value Reference Range Interpretation Comme nts CHOLESTEROL (test code = 2210) 216 MG/DL TRIGLYCERIDES (test code = 2232) 269 MG/DL HDL CHOLESTEROL (test code = 2220) 29 MG/DL CALC LDL CHOL (test code = 2237) 146 MG/DL RISK RATIO LDL/HDL (test cod e = 2238) 5.03 RATIO [id number] 00:00:00* Test Item Value Reference Range Interpretation Comme nts TSH, THIRD GENERATION (test code = 2821) 1.940 UIU/ML COMPREHENSIVE METABOLIC [id number] 00:00:00* Test Item Value Reference Range Interpretation Comme nts GLUCOSE (test code = 2217) 101 MG/DL BUN (test code = 2208) 7 MG/DL CREATININE (test code = 2214) 0.70 MG/DL eGFR AMER. (test cod e = 61131) 105 ML/MIN/1.73 eGFR NON- AMER. (test code = 16857) 90 ML/MIN/1.73 CALC BUN/CREAT (test code = 2235) 10 RATIO SODIUM (test code = 2231) 137 MEQ/L POTASSIUM (test code = 2228) 3.5 MEQ/L CHLORIDE (test code = 2215) 99 MEQ/L CARBON DIOXIDE (test code = 2206) 26 MEQ/L CALCIUM (test code = 2209) 9.2 MG/DL PROTEIN, TOTAL (test code = 2229) 7.5 G/DL ALBUMIN (test code = 2201) 4.5 G/DL CALC GLOBULIN (test code = 2240) 3.0 G/DL CALC A/G RATIO (test code = 2234) 1.5 RATIO BILIRUBIN, TOTAL (test code = 2207) 0.3 MG/DL ALKALINE PHOSPHATASE (test code = 2204) 106 U/L AST (test code = 2218) 11 U/L ALT (test code = 2219) 9 U/L CBC W/AUTO [id number] 00:00:00* Test Item Value Reference Range Interpretation Comme nts WBC (test code = 1001) 7.2 K/UL RBC (test code = 1002) 4.97 M/UL HEMOGLOBIN (test code = 1003) 14.5 G/DL HEMATOCRIT (test code = 1004) 42.2 % MCV (test code = 1005) 84.9 fL MCH (test code = 1006) 29.2 PG MCHC (test code = 1007) 34.4 G/DL RDW (test code = 1038) 12.9 % NEUTROPHILS (test code = 1008) 46.2 % LYMPHOCYTES (test code = 1010) 41.3 % MONOCYTES (test code = 1011) 8.6 % EOSINOPHILS (test code = 1012) 3.5 % BASOPHILS (test code = 1013) 0.4 % PLATELET COUNT (test code = 1015) 363 K/UL LIPID [id number] 00:00:00* Test Item Value Reference Range Interpretation Comme nts CHOLESTEROL (test code = 2210) 216 MG/DL TRIGLYCERIDES (test code = 2232) 269 MG/DL HDL CHOLESTEROL (test code = 2220) 29 MG/DL CALC LDL CHOL (test code = 2237) 146 MG/DL RISK RATIO LDL/HDL (test cod e = 2238) 5.03 RATIO [id number] 00:00:00* Test Item Value Reference Range Interpretation Comme nts TSH, THIRD GENERATION (test code = 2821) 1.940 UIU/ML COMPREHENSIVE METABOLIC [id number] 00:00:00* Test Item Value Reference Range Interpretation Comme nts GLUCOSE (test code = 2217) 101 MG/DL BUN (test code = 2208) 7 MG/DL CREATININE (test code = 2214) 0.70 MG/DL eGFR AMER. (test cod e = 32589) 105 ML/MIN/1.73 eGFR NON- AMER. (test code = 45240) 90 ML/MIN/1.73 CALC BUN/CREAT (test code = 2235) 10 RATIO SODIUM (test code = 2231) 137 MEQ/L POTASSIUM (test code = 2228) 3.5 MEQ/L CHLORIDE (test code = 2215) 99 MEQ/L CARBON DIOXIDE (test code = 2206) 26 MEQ/L CALCIUM (test code = 2209) 9.2 MG/DL PROTEIN, TOTAL (test code = 2229) 7.5 G/DL ALBUMIN (test code = 2201) 4.5 G/DL CALC GLOBULIN (test code = 2240) 3.0 G/DL CALC A/G RATIO (test code = 2234) 1.5 RATIO BILIRUBIN, TOTAL (test code = 2207) 0.3 MG/DL ALKALINE PHOSPHATASE (test code = 2204) 106 U/L AST (test code = 2218) 11 U/L ALT (test code = 2219) 9 U/L CBC W/AUTO [id number] 00:00:00* Test Item Value Reference Range Interpretation Comme nts WBC (test code = 1001) 7.2 K/UL RBC (test code = 1002) 4.97 M/UL HEMOGLOBIN (test code = 1003) 14.5 G/DL HEMATOCRIT (test code = 1004) 42.2 % MCV (test code = 1005) 84.9 fL MCH (test code = 1006) 29.2 PG MCHC (test code = 1007) 34.4 G/DL RDW (test code = 1038) 12.9 % NEUTROPHILS (test code = 1008) 46.2 % LYMPHOCYTES (test code = 1010) 41.3 % MONOCYTES (test code = 1011) 8.6 % EOSINOPHILS (test code = 1012) 3.5 % BASOPHILS (test code = 1013) 0.4 % PLATELET COUNT (test code = 1015) 363 K/UL LIPID [id number] 00:00:00* Test Item Value Reference Range Interpretation Comme nts CHOLESTEROL (test code = 2210) 216 MG/DL TRIGLYCERIDES (test code = 2232) 269 MG/DL HDL CHOLESTEROL (test code = 2220) 29 MG/DL CALC LDL CHOL (test code = 2237) 146 MG/DL RISK RATIO LDL/HDL (test cod e = 2238) 5.03 RATIO [id number] 00:00:00* Test Item Value Reference Range Interpretation Comme nts TSH, THIRD GENERATION (test code = 2821) 1.940 UIU/ML COMPREHENSIVE METABOLIC [id number] 00:00:00* Test Item Value Reference Range Interpretation Comme nts GLUCOSE (test code = 2217) 101 MG/DL BUN (test code = 2208) 7 MG/DL CREATININE (test code = 2214) 0.70 MG/DL eGFR AMER. (test cod e = 49602) 105 ML/MIN/1.73 eGFR NON- AMER. (test code = 86459) 90 ML/MIN/1.73 CALC BUN/CREAT (test code = 2235) 10 RATIO SODIUM (test code = 2231) 137 MEQ/L POTASSIUM (test code = 2228) 3.5 MEQ/L CHLORIDE (test code = 2215) 99 MEQ/L CARBON DIOXIDE (test code = 2206) 26 MEQ/L CALCIUM (test code = 2209) 9.2 MG/DL PROTEIN, TOTAL (test code = 2229) 7.5 G/DL ALBUMIN (test code = 2201) 4.5 G/DL CALC GLOBULIN (test code = 2240) 3.0 G/DL CALC A/G RATIO (test code = 2234) 1.5 RATIO BILIRUBIN, TOTAL (test code = 2207) 0.3 MG/DL ALKALINE PHOSPHATASE (test code = 2204) 106 U/L AST (test code = 2218) 11 U/L ALT (test code = 2219) 9 U/L CBC W/AUTO [id number] 00:00:00* Test Item Value Reference Range Interpretation Comme nts WBC (test code = 1001) 7.2 K/UL RBC (test code = 1002) 4.97 M/UL HEMOGLOBIN (test code = 1003) 14.5 G/DL HEMATOCRIT (test code = 1004) 42.2 % MCV (test code = 1005) 84.9 fL MCH (test code = 1006) 29.2 PG MCHC (test code = 1007) 34.4 G/DL RDW (test code = 1038) 12.9 % NEUTROPHILS (test code = 1008) 46.2 % LYMPHOCYTES (test code = 1010) 41.3 % MONOCYTES (test code = 1011) 8.6 % EOSINOPHILS (test code = 1012) 3.5 % BASOPHILS (test code = 1013) 0.4 % PLATELET COUNT (test code = 1015) 363 K/UL LIPID [id number] 00:00:00* Test Item Value Reference Range Interpretation Comme nts CHOLESTEROL (test code = 2210) 216 MG/DL TRIGLYCERIDES (test code = 2232) 269 MG/DL HDL CHOLESTEROL (test code = 2220) 29 MG/DL CALC LDL CHOL (test code = 2237) 146 MG/DL RISK RATIO LDL/HDL (test cod e = 2238) 5.03 RATIO [id number] 00:00:00* Test Item Value Reference Range Interpretation Comme nts TSH, THIRD GENERATION (test code = 2821) 1.940 UIU/ML COMPREHENSIVE METABOLIC [id number] 00:00:00* Test Item Value Reference Range Interpretation Comme nts GLUCOSE (test code = 2217) 101 MG/DL BUN (test code = 2208) 7 MG/DL CREATININE (test code = 2214) 0.70 MG/DL eGFR AMER. (test cod e = 51620) 105 ML/MIN/1.73 eGFR NON- AMER. (test code = 13260) 90 ML/MIN/1.73 CALC BUN/CREAT (test code = 2235) 10 RATIO SODIUM (test code = 2231) 137 MEQ/L POTASSIUM (test code = 2228) 3.5 MEQ/L CHLORIDE (test code = 2215) 99 MEQ/L CARBON DIOXIDE (test code = 2206) 26 MEQ/L CALCIUM (test code = 2209) 9.2 MG/DL PROTEIN, TOTAL (test code = 2229) 7.5 G/DL ALBUMIN (test code = 2201) 4.5 G/DL CALC GLOBULIN (test code = 2240) 3.0 G/DL CALC A/G RATIO (test code = 2234) 1.5 RATIO BILIRUBIN, TOTAL (test code = 2207) 0.3 MG/DL ALKALINE PHOSPHATASE (test code = 2204) 106 U/L AST (test code = 2218) 11 U/L ALT (test code = 2219) 9 U/L COMPREHENSIVE METABOLIC [id number] 00:00:00* Test Item Value Reference Range Interpretation Comme nts GLUCOSE (test code = 2217) 101 MG/DL BUN (test code = 2208) 7 MG/DL CREATININE (test code = 2214) 0.70 MG/DL eGFR AMER. (test cod e = 97117) 105 ML/MIN/1.73 eGFR NON- AMER. (test code = 24967) 90 ML/MIN/1.73 CALC BUN/CREAT (test code = 2235) 10 RATIO SODIUM (test code = 2231) 137 MEQ/L POTASSIUM (test code = 2228) 3.5 MEQ/L CHLORIDE (test code = 2215) 99 MEQ/L CARBON DIOXIDE (test code = 2206) 26 MEQ/L CALCIUM (test code = 2209) 9.2 MG/DL PROTEIN, TOTAL (test code = 2229) 7.5 G/DL ALBUMIN (test code = 2201) 4.5 G/DL CALC GLOBULIN (test code = 2240) 3.0 G/DL CALC A/G RATIO (test code = 2234) 1.5 RATIO BILIRUBIN, TOTAL (test code = 2207) 0.3 MG/DL ALKALINE PHOSPHATASE (test code = 2204) 106 U/L AST (test code = 2218) 11 U/L ALT (test code = 2219) 9 U/L CBC W/AUTO [id number] 00:00:00* Test Item Value Reference Range Interpretation Comme nts WBC (test code = 1001) 7.2 K/UL RBC (test code = 1002) 4.97 M/UL HEMOGLOBIN (test code = 1003) 14.5 G/DL HEMATOCRIT (test code = 1004) 42.2 % MCV (test code = 1005) 84.9 fL MCH (test code = 1006) 29.2 PG MCHC (test code = 1007) 34.4 G/DL RDW (test code = 1038) 12.9 % NEUTROPHILS (test code = 1008) 46.2 % LYMPHOCYTES (test code = 1010) 41.3 % MONOCYTES (test code = 1011) 8.6 % EOSINOPHILS (test code = 1012) 3.5 % BASOPHILS (test code = 1013) 0.4 % PLATELET COUNT (test code = 1015) 363 K/UL LIPID [id number] 00:00:00* Test Item Value Reference Range Interpretation Comme nts CHOLESTEROL (test code = 2210) 216 MG/DL TRIGLYCERIDES (test code = 2232) 269 MG/DL HDL CHOLESTEROL (test code = 2220) 29 MG/DL CALC LDL CHOL (test code = 2237) 146 MG/DL RISK RATIO LDL/HDL (test cod e = 2238) 5.03 RATIO [id number] 00:00:00* Test Item Value Reference Range Interpretation Comme nts TSH, THIRD GENERATION (test code = 2821) 1.940 UIU/ML CBC W/AUTO [id number] 00:00:00* Test Item Value Reference Range Interpretation Comme nts WBC (test code = 1001) 7.2 K/UL RBC (test code = 1002) 4.97 M/UL HEMOGLOBIN (test code = 1003) 14.5 G/DL HEMATOCRIT (test code = 1004) 42.2 % MCV (test code = 1005) 84.9 fL MCH (test code = 1006) 29.2 PG MCHC (test code = 1007) 34.4 G/DL RDW (test code = 1038) 12.9 % NEUTROPHILS (test code = 1008) 46.2 % LYMPHOCYTES (test code = 1010) 41.3 % MONOCYTES (test code = 1011) 8.6 % EOSINOPHILS (test code = 1012) 3.5 % BASOPHILS (test code = 1013) 0.4 % PLATELET COUNT (test code = 1015) 363 K/UL LIPID [id number] 00:00:00* Test Item Value Reference Range Interpretation Comme nts CHOLESTEROL (test code = 2210) 216 MG/DL TRIGLYCERIDES (test code = 2232) 269 MG/DL HDL CHOLESTEROL (test code = 2220) 29 MG/DL CALC LDL CHOL (test code = 2237) 146 MG/DL RISK RATIO LDL/HDL (test cod e = 2238) 5.03 RATIO [id number] 00:00:00* Test Item Value Reference Range Interpretation Comme nts TSH, THIRD GENERATION (test code = 2821) 1.940 UIU/ML COMPREHENSIVE METABOLIC [id number] 00:00:00* Test Item Value Reference Range Interpretation Comme nts GLUCOSE (test code = 2217) 101 MG/DL BUN (test code = 2208) 7 MG/DL CREATININE (test code = 2214) 0.70 MG/DL eGFR AMER. (test cod e = 52487) 105 ML/MIN/1.73 eGFR NON- AMER. (test code = 73929) 90 ML/MIN/1.73 CALC BUN/CREAT (test code = 2235) 10 RATIO SODIUM (test code = 2231) 137 MEQ/L POTASSIUM (test code = 2228) 3.5 MEQ/L CHLORIDE (test code = 2215) 99 MEQ/L CARBON DIOXIDE (test code = 2206) 26 MEQ/L CALCIUM (test code = 2209) 9.2 MG/DL PROTEIN, TOTAL (test code = 2229) 7.5 G/DL ALBUMIN (test code = 2201) 4.5 G/DL CALC GLOBULIN (test code = 2240) 3.0 G/DL CALC A/G RATIO (test code = 2234) 1.5 RATIO BILIRUBIN, TOTAL (test code = 2207) 0.3 MG/DL ALKALINE PHOSPHATASE (test code = 2204) 106 U/L AST (test code = 2218) 11 U/L ALT (test code = 2219) 9 U/L CBC W/AUTO [id number] 00:00:00* Test Item Value Reference Range Interpretation Comme nts WBC (test code = 1001) 7.2 K/UL RBC (test code = 1002) 4.97 M/UL HEMOGLOBIN (test code = 1003) 14.5 G/DL HEMATOCRIT (test code = 1004) 42.2 % MCV (test code = 1005) 84.9 fL MCH (test code = 1006) 29.2 PG MCHC (test code = 1007) 34.4 G/DL RDW (test code = 1038) 12.9 % NEUTROPHILS (test code = 1008) 46.2 % LYMPHOCYTES (test code = 1010) 41.3 % MONOCYTES (test code = 1011) 8.6 % EOSINOPHILS (test code = 1012) 3.5 % BASOPHILS (test code = 1013) 0.4 % PLATELET COUNT (test code = 1015) 363 K/UL LIPID [id number] 00:00:00* Test Item Value Reference Range Interpretation Comme nts CHOLESTEROL (test code = 2210) 216 MG/DL TRIGLYCERIDES (test code = 2232) 269 MG/DL HDL CHOLESTEROL (test code = 2220) 29 MG/DL CALC LDL CHOL (test code = 2237) 146 MG/DL RISK RATIO LDL/HDL (test cod e = 2238) 5.03 RATIO [id number] 00:00:00* Test Item Value Reference Range Interpretation Comme nts TSH, THIRD GENERATION (test code = 2821) 1.940 UIU/ML COMPREHENSIVE METABOLIC [id number] 00:00:00* Test Item Value Reference Range Interpretation Comme nts GLUCOSE (test code = 2217) 101 MG/DL BUN (test code = 2208) 7 MG/DL CREATININE (test code = 2214) 0.70 MG/DL eGFR AMER. (test cod e = 70448) 105 ML/MIN/1.73 eGFR NON- AMER. (test code = 97844) 90 ML/MIN/1.73 CALC BUN/CREAT (test code = 2235) 10 RATIO SODIUM (test code = 2231) 137 MEQ/L POTASSIUM (test code = 2228) 3.5 MEQ/L CHLORIDE (test code = 2215) 99 MEQ/L CARBON DIOXIDE (test code = 2206) 26 MEQ/L CALCIUM (test code = 2209) 9.2 MG/DL PROTEIN, TOTAL (test code = 2229) 7.5 G/DL ALBUMIN (test code = 2201) 4.5 G/DL CALC GLOBULIN (test code = 2240) 3.0 G/DL CALC A/G RATIO (test code = 2234) 1.5 RATIO BILIRUBIN, TOTAL (test code = 2207) 0.3 MG/DL ALKALINE PHOSPHATASE (test code = 2204) 106 U/L AST (test code = 2218) 11 U/L ALT (test code = 2219) 9 U/L CBC W/AUTO [id number] 00:00:00* Test Item Value Reference Range Interpretation Comme nts WBC (test code = 1001) 7.2 K/UL RBC (test code = 1002) 4.97 M/UL HEMOGLOBIN (test code = 1003) 14.5 G/DL HEMATOCRIT (test code = 1004) 42.2 % MCV (test code = 1005) 84.9 fL MCH (test code = 1006) 29.2 PG MCHC (test code = 1007) 34.4 G/DL RDW (test code = 1038) 12.9 % NEUTROPHILS (test code = 1008) 46.2 % LYMPHOCYTES (test code = 1010) 41.3 % MONOCYTES (test code = 1011) 8.6 % EOSINOPHILS (test code = 1012) 3.5 % BASOPHILS (test code = 1013) 0.4 % PLATELET COUNT (test code = 1015) 363 K/UL LIPID [id number] 00:00:00* Test Item Value Reference Range Interpretation Comme nts CHOLESTEROL (test code = 2210) 216 MG/DL TRIGLYCERIDES (test code = 2232) 269 MG/DL HDL CHOLESTEROL (test code = 2220) 29 MG/DL CALC LDL CHOL (test code = 2237) 146 MG/DL RISK RATIO LDL/HDL (test cod e = 2238) 5.03 RATIO [id number] 00:00:00* Test Item Value Reference Range Interpretation Comme nts TSH, THIRD GENERATION (test code = 2821) 1.940 UIU/ML Topher F AustinCOMPREHENSIVE METABOLIC [id number] 00:00:00* Test Item Value Reference Range Interpretation Comme nts GLUCOSE (test code = 2217) 101 MG/DL BUN (test code = 2208) 7 MG/DL CREATININE (test code = 2214) 0.70 MG/DL eGFR AMER. (test cod e = 61268) 105 ML/MIN/1.73 eGFR NON- AMER. (test code = 16112) 90 ML/MIN/1.73 CALC BUN/CREAT (test code = 2235) 10 RATIO SODIUM (test code = 2231) 137 MEQ/L POTASSIUM (test code = 2228) 3.5 MEQ/L CHLORIDE (test code = 2215) 99 MEQ/L CARBON DIOXIDE (test code = 2206) 26 MEQ/L CALCIUM (test code = 2209) 9.2 MG/DL PROTEIN, TOTAL (test code = 2229) 7.5 G/DL ALBUMIN (test code = 2201) 4.5 G/DL CALC GLOBULIN (test code = 2240) 3.0 G/DL CALC A/G RATIO (test code = 2234) 1.5 RATIO BILIRUBIN, TOTAL (test code = 2207) 0.3 MG/DL ALKALINE PHOSPHATASE (test code = 2204) 106 U/L AST (test code = 2218) 11 U/L ALT (test code = 2219) 9 U/L Topher BrownCOMPREHENSIVE METABOLIC [id number] 00:00:00* Test Item Value Reference Range Interpretation Comme nts GLUCOSE (test code = 2217) 101 MG/DL BUN (test code = 2208) 7 MG/DL CREATININE (test code = 2214) 0.70 MG/DL eGFR AMER. (test cod e = 05482) 105 ML/MIN/1.73 eGFR NON- AMER. (test code = 58879) 90 ML/MIN/1.73 CALC BUN/CREAT (test code = 2235) 10 RATIO SODIUM (test code = 2231) 137 MEQ/L POTASSIUM (test code = 2228) 3.5 MEQ/L CHLORIDE (test code = 2215) 99 MEQ/L CARBON DIOXIDE (test code = 2206) 26 MEQ/L CALCIUM (test code = 2209) 9.2 MG/DL PROTEIN, TOTAL (test code = 2229) 7.5 G/DL ALBUMIN (test code = 2201) 4.5 G/DL CALC GLOBULIN (test code = 2240) 3.0 G/DL CALC A/G RATIO (test code = 2234) 1.5 RATIO BILIRUBIN, TOTAL (test code = 2207) 0.3 MG/DL ALKALINE PHOSPHATASE (test code = 2204) 106 U/L AST (test code = 2218) 11 U/L ALT (test code = 2219) 9 U/L Topher BrownC W/AUTO [id number] 00:00:00* Test Item Value Reference Range Interpretation Comme nts WBC (test code = 1001) 7.2 K/UL RBC (test code = 1002) 4.97 M/UL HEMOGLOBIN (test code = 1003) 14.5 G/DL HEMATOCRIT (test code = 1004) 42.2 % MCV (test code = 1005) 84.9 fL MCH (test code = 1006) 29.2 PG MCHC (test code = 1007) 34.4 G/DL RDW (test code = 1038) 12.9 % NEUTROPHILS (test code = 1008) 46.2 % LYMPHOCYTES (test code = 1010) 41.3 % MONOCYTES (test code = 1011) 8.6 % EOSINOPHILS (test code = 1012) 3.5 % BASOPHILS (test code = 1013) 0.4 % PLATELET COUNT (test code = 1015) 363 K/UL Topher BrownLIPID [id number] 00:00:00* Test Item Value Reference Range Interpretation Comme nts CHOLESTEROL (test code = 2210) 216 MG/DL TRIGLYCERIDES (test code = 2232) 269 MG/DL HDL CHOLESTEROL (test code = 2220) 29 MG/DL CALC LDL CHOL (test code = 2237) 146 MG/DL RISK RATIO LDL/HDL (test cod e = 2238) 5.03 RATIO Topher [id number] 00:00:00* Test Item Value Reference Range Interpretation Comme nts TSH, THIRD GENERATION (test code = 2821) 1.940 UIU/ML Topher BrownCOMPREHENSIVE METABOLIC [id number] 00:00:00* Test Item Value Reference Range Interpretation Comme nts GLUCOSE (test code = 2217) 101 MG/DL BUN (test code = 2208) 7 MG/DL CREATININE (test code = 2214) 0.70 MG/DL eGFR AMER. (test cod e = 65993) 105 ML/MIN/1.73 eGFR NON- AMER. (test code = 26701) 90 ML/MIN/1.73 CALC BUN/CREAT (test code = 2235) 10 RATIO SODIUM (test code = 2231) 137 MEQ/L POTASSIUM (test code = 2228) 3.5 MEQ/L CHLORIDE (test code = 2215) 99 MEQ/L CARBON DIOXIDE (test code = 2206) 26 MEQ/L CALCIUM (test code = 2209) 9.2 MG/DL PROTEIN, TOTAL (test code = 2229) 7.5 G/DL ALBUMIN (test code = 2201) 4.5 G/DL CALC GLOBULIN (test code = 2240) 3.0 G/DL CALC A/G RATIO (test code = 2234) 1.5 RATIO BILIRUBIN, TOTAL (test code = 2207) 0.3 MG/DL ALKALINE PHOSPHATASE (test code = 2204) 106 U/L AST (test code = 2218) 11 U/L ALT (test code = 2219) 9 U/L Topher BrownC W/AUTO [id number] 00:00:00* Test Item Value Reference Range Interpretation Comme nts WBC (test code = 1001) 7.2 K/UL RBC (test code = 1002) 4.97 M/UL HEMOGLOBIN (test code = 1003) 14.5 G/DL HEMATOCRIT (test code = 1004) 42.2 % MCV (test code = 1005) 84.9 fL MCH (test code = 1006) 29.2 PG MCHC (test code = 1007) 34.4 G/DL RDW (test code = 1038) 12.9 % NEUTROPHILS (test code = 1008) 46.2 % LYMPHOCYTES (test code = 1010) 41.3 % MONOCYTES (test code = 1011) 8.6 % EOSINOPHILS (test code = 1012) 3.5 % BASOPHILS (test code = 1013) 0.4 % PLATELET COUNT (test code = 1015) 363 K/UL Topher BrownCBC W/AUTO [id number] 00:00:00* Test Item Value Reference Range Interpretation Comme nts WBC (test code = 1001) 7.2 K/UL RBC (test code = 1002) 4.97 M/UL HEMOGLOBIN (test code = 1003) 14.5 G/DL HEMATOCRIT (test code = 1004) 42.2 % MCV (test code = 1005) 84.9 fL MCH (test code = 1006) 29.2 PG MCHC (test code = 1007) 34.4 G/DL RDW (test code = 1038) 12.9 % NEUTROPHILS (test code = 1008) 46.2 % LYMPHOCYTES (test code = 1010) 41.3 % MONOCYTES (test code = 1011) 8.6 % EOSINOPHILS (test code = 1012) 3.5 % BASOPHILS (test code = 1013) 0.4 % PLATELET COUNT (test code = 1015) 363 K/UL Topher BrownLIPID [id number] 00:00:00* Test Item Value Reference Range Interpretation Comme nts CHOLESTEROL (test code = 2210) 216 MG/DL TRIGLYCERIDES (test code = 2232) 269 MG/DL HDL CHOLESTEROL (test code = 2220) 29 MG/DL CALC LDL CHOL (test code = 2237) 146 MG/DL RISK RATIO LDL/HDL (test cod e = 2238) 5.03 RATIO Topher [id number] 00:00:00* Test Item Value Reference Range Interpretation Comme nts TSH, THIRD GENERATION (test code = 2821) 1.940 UIU/ML Topher BrownCOMPREHENSIVE METABOLIC [id number] 00:00:00* Test Item Value Reference Range Interpretation Comme nts GLUCOSE (test code = 2217) 101 MG/DL BUN (test code = 2208) 7 MG/DL CREATININE (test code = 2214) 0.70 MG/DL eGFR AMER. (test cod e = 55015) 105 ML/MIN/1.73 eGFR NON- AMER. (test code = 22266) 90 ML/MIN/1.73 CALC BUN/CREAT (test code = 2235) 10 RATIO SODIUM (test code = 2231) 137 MEQ/L POTASSIUM (test code = 2228) 3.5 MEQ/L CHLORIDE (test code = 2215) 99 MEQ/L CARBON DIOXIDE (test code = 2206) 26 MEQ/L CALCIUM (test code = 2209) 9.2 MG/DL PROTEIN, TOTAL (test code = 2229) 7.5 G/DL ALBUMIN (test code = 2201) 4.5 G/DL CALC GLOBULIN (test code = 2240) 3.0 G/DL CALC A/G RATIO (test code = 2234) 1.5 RATIO BILIRUBIN, TOTAL (test code = 2207) 0.3 MG/DL ALKALINE PHOSPHATASE (test code = 2204) 106 U/L AST (test code = 2218) 11 U/L ALT (test code = 2219) 9 U/L Topher BrownCBC W/AUTO [id number] 00:00:00* Test Item Value Reference Range Interpretation Comme nts WBC (test code = 1001) 7.2 K/UL RBC (test code = 1002) 4.97 M/UL HEMOGLOBIN (test code = 1003) 14.5 G/DL HEMATOCRIT (test code = 1004) 42.2 % MCV (test code = 1005) 84.9 fL MCH (test code = 1006) 29.2 PG MCHC (test code = 1007) 34.4 G/DL RDW (test code = 1038) 12.9 % NEUTROPHILS (test code = 1008) 46.2 % LYMPHOCYTES (test code = 1010) 41.3 % MONOCYTES (test code = 1011) 8.6 % EOSINOPHILS (test code = 1012) 3.5 % BASOPHILS (test code = 1013) 0.4 % PLATELET COUNT (test code = 1015) 363 K/UL Topher Cam AustinLIPID [id number] 00:00:00* Test Item Value Reference Range Interpretation Comme nts CHOLESTEROL (test code = 2210) 216 MG/DL TRIGLYCERIDES (test code = 2232) 269 MG/DL HDL CHOLESTEROL (test code = 2220) 29 MG/DL CALC LDL CHOL (test code = 2237) 146 MG/DL RISK RATIO LDL/HDL (test cod e = 2238) 5.03 RATIO Topher [id number] 00:00:00* Test Item Value Reference Range Interpretation Comme nts TSH, THIRD GENERATION (test code = 2821) 1.940 UIU/ML Topher Cam AustinLIPID [id number] 00:00:00* Test Item Value Reference Range Interpretation Comme nts CHOLESTEROL (test code = 2210) 216 MG/DL TRIGLYCERIDES (test code = 2232) 269 MG/DL HDL CHOLESTEROL (test code = 2220) 29 MG/DL CALC LDL CHOL (test code = 2237) 146 MG/DL RISK RATIO LDL/HDL (test cod e = 2238) 5.03 RATIO Topher Cam [id number] 00:00:00* Test Item Value Reference Range Interpretation Comme nts TSH, THIRD GENERATION (test code = 2821) 1.940 UIU/ML Topher Cam AustinCOMPREHENSIVE METABOLIC [id number] 00:00:00* Test Item Value Reference Range Interpretation Comme nts GLUCOSE (test code = 2217) 101 MG/DL BUN (test code = 2208) 7 MG/DL CREATININE (test code = 2214) 0.70 MG/DL eGFR AMER. (test cod e = 49067) 105 ML/MIN/1.73 eGFR NON- AMER. (test code = 63210) 90 ML/MIN/1.73 CALC BUN/CREAT (test code = 2235) 10 RATIO SODIUM (test code = 2231) 137 MEQ/L POTASSIUM (test code = 2228) 3.5 MEQ/L CHLORIDE (test code = 2215) 99 MEQ/L CARBON DIOXIDE (test code = 2206) 26 MEQ/L CALCIUM (test code = 2209) 9.2 MG/DL PROTEIN, TOTAL (test code = 2229) 7.5 G/DL ALBUMIN (test code = 2201) 4.5 G/DL CALC GLOBULIN (test code = 2240) 3.0 G/DL CALC A/G RATIO (test code = 2234) 1.5 RATIO BILIRUBIN, TOTAL (test code = 2207) 0.3 MG/DL ALKALINE PHOSPHATASE (test code = 2204) 106 U/L AST (test code = 2218) 11 U/L ALT (test code = 2219) 9 U/L Topher BrownCBC W/AUTO [id number] 00:00:00* Test Item Value Reference Range Interpretation Comme nts WBC (test code = 1001) 7.2 K/UL RBC (test code = 1002) 4.97 M/UL HEMOGLOBIN (test code = 1003) 14.5 G/DL HEMATOCRIT (test code = 1004) 42.2 % MCV (test code = 1005) 84.9 fL MCH (test code = 1006) 29.2 PG MCHC (test code = 1007) 34.4 G/DL RDW (test code = 1038) 12.9 % NEUTROPHILS (test code = 1008) 46.2 % LYMPHOCYTES (test code = 1010) 41.3 % MONOCYTES (test code = 1011) 8.6 % EOSINOPHILS (test code = 1012) 3.5 % BASOPHILS (test code = 1013) 0.4 % PLATELET COUNT (test code = 1015) 363 K/UL Topher BrownLIPID [id number] 00:00:00* Test Item Value Reference Range Interpretation Comme nts CHOLESTEROL (test code = 2210) 216 MG/DL TRIGLYCERIDES (test code = 2232) 269 MG/DL HDL CHOLESTEROL (test code = 2220) 29 MG/DL CALC LDL CHOL (test code = 2237) 146 MG/DL RISK RATIO LDL/HDL (test cod e = 2238) 5.03 RATIO Topher [id number] 00:00:00* Test Item Value Reference Range Interpretation Comme nts TSH, THIRD GENERATION (test code = 2821) 1.940 UIU/ML Topher BrownCOMPREHENSIVE METABOLIC [id number] 00:00:00* Test Item Value Reference Range Interpretation Comme nts GLUCOSE (test code = 2217) 101 MG/DL BUN (test code = 2208) 7 MG/DL CREATININE (test code = 2214) 0.70 MG/DL eGFR AMER. (test cod e = 49915) 105 ML/MIN/1.73 eGFR NON- AMER. (test code = 29363) 90 ML/MIN/1.73 CALC BUN/CREAT (test code = 2235) 10 RATIO SODIUM (test code = 2231) 137 MEQ/L POTASSIUM (test code = 2228) 3.5 MEQ/L CHLORIDE (test code = 2215) 99 MEQ/L CARBON DIOXIDE (test code = 2206) 26 MEQ/L CALCIUM (test code = 2209) 9.2 MG/DL PROTEIN, TOTAL (test code = 2229) 7.5 G/DL ALBUMIN (test code = 2201) 4.5 G/DL CALC GLOBULIN (test code = 2240) 3.0 G/DL CALC A/G RATIO (test code = 2234) 1.5 RATIO BILIRUBIN, TOTAL (test code = 2207) 0.3 MG/DL ALKALINE PHOSPHATASE (test code = 2204) 106 U/L AST (test code = 2218) 11 U/L ALT (test code = 2219) 9 U/L Topher BrownCBC W/AUTO [id number] 00:00:00* Test Item Value Reference Range Interpretation Comme nts WBC (test code = 1001) 7.2 K/UL RBC (test code = 1002) 4.97 M/UL HEMOGLOBIN (test code = 1003) 14.5 G/DL HEMATOCRIT (test code = 1004) 42.2 % MCV (test code = 1005) 84.9 fL MCH (test code = 1006) 29.2 PG MCHC (test code = 1007) 34.4 G/DL RDW (test code = 1038) 12.9 % NEUTROPHILS (test code = 1008) 46.2 % LYMPHOCYTES (test code = 1010) 41.3 % MONOCYTES (test code = 1011) 8.6 % EOSINOPHILS (test code = 1012) 3.5 % BASOPHILS (test code = 1013) 0.4 % PLATELET COUNT (test code = 1015) 363 K/UL Topher Cam AustinLIPID [id number] 00:00:00* Test Item Value Reference Range Interpretation Comme nts CHOLESTEROL (test code = 2210) 216 MG/DL TRIGLYCERIDES (test code = 2232) 269 MG/DL HDL CHOLESTEROL (test code = 2220) 29 MG/DL CALC LDL CHOL (test code = 2237) 146 MG/DL RISK RATIO LDL/HDL (test cod e = 2238) 5.03 RATIO Topher [id number] 00:00:00* Test Item Value Reference Range Interpretation Comme nts TSH, THIRD GENERATION (test code = 2821) 1.940 UIU/ML Topher BrownCOMPREHENSIVE METABOLIC [id number] 00:00:00* Test Item Value Reference Range Interpretation Comme nts GLUCOSE (test code = 2217) 101 MG/DL BUN (test code = 2208) 7 MG/DL CREATININE (test code = 2214) 0.70 MG/DL eGFR AMER. (test cod e = 77355) 105 ML/MIN/1.73 eGFR NON- AMER. (test code = 90751) 90 ML/MIN/1.73 CALC BUN/CREAT (test code = 2235) 10 RATIO SODIUM (test code = 2231) 137 MEQ/L POTASSIUM (test code = 2228) 3.5 MEQ/L CHLORIDE (test code = 2215) 99 MEQ/L CARBON DIOXIDE (test code = 2206) 26 MEQ/L CALCIUM (test code = 2209) 9.2 MG/DL PROTEIN, TOTAL (test code = 2229) 7.5 G/DL ALBUMIN (test code = 2201) 4.5 G/DL CALC GLOBULIN (test code = 2240) 3.0 G/DL CALC A/G RATIO (test code = 2234) 1.5 RATIO BILIRUBIN, TOTAL (test code = 2207) 0.3 MG/DL ALKALINE PHOSPHATASE (test code = 2204) 106 U/L AST (test code = 2218) 11 U/L ALT (test code = 2219) 9 U/L Topher BrownCBC W/AUTO [id number] 00:00:00* Test Item Value Reference Range Interpretation Comme nts WBC (test code = 1001) 7.2 K/UL RBC (test code = 1002) 4.97 M/UL HEMOGLOBIN (test code = 1003) 14.5 G/DL HEMATOCRIT (test code = 1004) 42.2 % MCV (test code = 1005) 84.9 fL MCH (test code = 1006) 29.2 PG MCHC (test code = 1007) 34.4 G/DL RDW (test code = 1038) 12.9 % NEUTROPHILS (test code = 1008) 46.2 % LYMPHOCYTES (test code = 1010) 41.3 % MONOCYTES (test code = 1011) 8.6 % EOSINOPHILS (test code = 1012) 3.5 % BASOPHILS (test code = 1013) 0.4 % PLATELET COUNT (test code = 1015) 363 K/UL Topher BrownLIPID [id number] 00:00:00* Test Item Value Reference Range Interpretation Comme nts CHOLESTEROL (test code = 2210) 216 MG/DL TRIGLYCERIDES (test code = 2232) 269 MG/DL HDL CHOLESTEROL (test code = 2220) 29 MG/DL CALC LDL CHOL (test code = 2237) 146 MG/DL RISK RATIO LDL/HDL (test cod e = 2238) 5.03 RATIO Topher [id number] 00:00:00* Test Item Value Reference Range Interpretation Comme nts TSH, THIRD GENERATION (test code = 2821) 1.940 UIU/ML Topher BrownCOMPREHENSIVE METABOLIC [id number] 00:00:00* Test Item Value Reference Range Interpretation Comme nts GLUCOSE (test code = 2217) 101 MG/DL BUN (test code = 2208) 7 MG/DL CREATININE (test code = 2214) 0.70 MG/DL eGFR AMER. (test cod e = 38584) 105 ML/MIN/1.73 eGFR NON- AMER. (test code = 39477) 90 ML/MIN/1.73 CALC BUN/CREAT (test code = 2235) 10 RATIO SODIUM (test code = 2231) 137 MEQ/L POTASSIUM (test code = 2228) 3.5 MEQ/L CHLORIDE (test code = 2215) 99 MEQ/L CARBON DIOXIDE (test code = 2206) 26 MEQ/L CALCIUM (test code = 2209) 9.2 MG/DL PROTEIN, TOTAL (test code = 2229) 7.5 G/DL ALBUMIN (test code = 2201) 4.5 G/DL CALC GLOBULIN (test code = 2240) 3.0 G/DL CALC A/G RATIO (test code = 2234) 1.5 RATIO BILIRUBIN, TOTAL (test code = 2207) 0.3 MG/DL ALKALINE PHOSPHATASE (test code = 2204) 106 U/L AST (test code = 2218) 11 U/L ALT (test code = 2219) 9 U/L Topher Tutu KevinCBC W/AUTO [id number] 00:00:00* Test Item Value Reference Range Interpretation Comme nts WBC (test code = 1001) 7.2 K/UL RBC (test code = 1002) 4.97 M/UL HEMOGLOBIN (test code = 1003) 14.5 G/DL HEMATOCRIT (test code = 1004) 42.2 % MCV (test code = 1005) 84.9 fL MCH (test code = 1006) 29.2 PG MCHC (test code = 1007) 34.4 G/DL RDW (test code = 1038) 12.9 % NEUTROPHILS (test code = 1008) 46.2 % LYMPHOCYTES (test code = 1010) 41.3 % MONOCYTES (test code = 1011) 8.6 % EOSINOPHILS (test code = 1012) 3.5 % BASOPHILS (test code = 1013) 0.4 % PLATELET COUNT (test code = 1015) 363 K/UL Topher Tutu KevinLIPID [id number] 00:00:00* Test Item Value Reference Range Interpretation Comme nts CHOLESTEROL (test code = 2210) 216 MG/DL TRIGLYCERIDES (test code = 2232) 269 MG/DL HDL CHOLESTEROL (test code = 2220) 29 MG/DL CALC LDL CHOL (test code = 2237) 146 MG/DL RISK RATIO LDL/HDL (test cod e = 2238) 5.03 RATIO Topher [id number] 00:00:00* Test Item Value Reference Range Interpretation Comme nts TSH, THIRD GENERATION (test code = 2821) 1.940 UIU/ML Topher Brown[U] XRAY SPINE LUMBOSACRAL 2 OR 3 VWS [id number] 11:10:00 Images acquired, not reported on this accession number.[facility]iciansURIC ACID 2019-07-03 00:00:00* Test Item Value Reference Range Interpretation Comme nts URIC ACID (test code = 2233) 5.6 MG/DL Topher Cam AustinURIC [id number] 00:00:00* Test Item Value Reference Range Interpretation Comme nts URIC ACID (test code = 2233) 5.6 MG/DL Topher Cam AustinURIC [id number] 00:00:00* Test Item Value Reference Range Interpretation Comme nts URIC ACID (test code = 2233) 5.6 MG/DL URIC [id number] 00:00:00* Test Item Value Reference Range Interpretation Comme nts URIC ACID (test code = 2233) 5.6 MG/DL URIC [id number] 00:00:00* Test Item Value Reference Range Interpretation Comme nts URIC ACID (test code = 2233) 5.6 MG/DL URIC [id number] 00:00:00* Test Item Value Reference Range Interpretation Comme nts URIC ACID (test code = 2233) 5.6 MG/DL URIC [id number] 00:00:00* Test Item Value Reference Range Interpretation Comme nts URIC ACID (test code = 2233) 5.6 MG/DL URIC [id number] 00:00:00* Test Item Value Reference Range Interpretation Comme nts URIC ACID (test code = 2233) 5.6 MG/DL URIC [id number] 00:00:00* Test Item Value Reference Range Interpretation Comme nts URIC ACID (test code = 2233) 5.6 MG/DL URIC [id number] 00:00:00* Test Item Value Reference Range Interpretation Comme nts URIC ACID (test code = 2233) 5.6 MG/DL URIC [id number] 00:00:00* Test Item Value Reference Range Interpretation Comme nts URIC ACID (test code = 2233) 5.6 MG/DL Topher Cam AustinURIC [id number] 00:00:00* Test Item Value Reference Range Interpretation Comme nts URIC ACID (test code = 2233) 5.6 MG/DL Topher Cam AustinURIC [id number] 00:00:00* Test Item Value Reference Range Interpretation Comme nts URIC ACID (test code = 2233) 5.6 MG/DL Topher Tutu AustinURIC [id number] 00:00:00* Test Item Value Reference Range Interpretation Comme nts URIC ACID (test code = 2233) 5.6 MG/DL Topher Tutu AustinURIC [id number] 00:00:00* Test Item Value Reference Range Interpretation Comme nts URIC ACID (test code = 2233) 5.6 MG/DL Topher Cam MorganURIC [id number] 00:00:00* Test Item Value Reference Range Interpretation Comme nts URIC ACID (test code = 2233) 5.6 MG/DL Topher Tutu AustinURIC [id number] 00:00:00* Test Item Value Reference Range Interpretation Comme nts URIC ACID (test code = 2233) 5.6 MG/DL [facility] Cam [facility] [id number] 00:00:00* Test Item Value Reference Range Interpretation Comme nts GLUCOSE (test code = 2217) 95 MG/DL BUN (test code = 2208) 8 MG/DL CREATININE (test code = 2214) 0.77 MG/DL eGFR AMER. (test cod e = 26046) 95 ML/MIN/1.73 eGFR NON- AMER. (test code = 83035) 82 ML/MIN/1.73 CALC BUN/CREAT (test code = 2235) 10 RATIO SODIUM (test code = 2231) 146 MEQ/L POTASSIUM (test code = 2228) 3.7 MEQ/L CHLORIDE (test code = 2215) 107 MEQ/L CARBON DIOXIDE (test code = 2206) 24 MEQ/L CALCIUM (test code = 2209) 9.6 MG/DL PROTEIN, TOTAL (test code = 2229) 7.7 G/DL ALBUMIN (test code = 2201) 4.9 G/DL CALC GLOBULIN (test code = 2240) 2.8 G/DL CALC A/G RATIO (test code = 2234) 1.8 RATIO BILIRUBIN, TOTAL (test code = 2207) 0.3 MG/DL ALKALINE PHOSPHATASE (test code = 2204) 100 U/L AST (test code = 2218) 9 U/L ALT (test code = 2219) 5 U/L Topher [id number] 00:00:00* Test Item Value Reference Range Interpretation Comme [facility] TSH, THIRD GENERATION (test code = 2821) 1.930 UIU/ML Topher BrownVITAMIN D, 25 [id number] 00:00:00* Test Item Value Reference Range Interpretation Comme [facility] VITAMIN D, 25 OH (test code = 4958) 38 NG/ML Topher BrownCBC W/AUTO [id number] 00:00:00* Test Item Value Reference Range Interpretation Comme nts WBC (test code = 1001) 7.6 K/UL RBC (test code = 1002) 5.29 M/UL HEMOGLOBIN (test code = 1003) 14.3 G/DL HEMATOCRIT (test code = 1004) 42.5 % MCV (test code = 1005) 80.3 fL MCH (test code = 1006) 27.0 PG MCHC (test code = 1007) 33.6 G/DL RDW (test code = 1038) 15.3 % NEUTROPHILS (test code = 1008) 46.6 % LYMPHOCYTES (test code = 1010) 43.6 % MONOCYTES (test code = 1011) 6.3 % EOSINOPHILS (test code = 1012) 3.0 % BASOPHILS (test code = 1013) 0.5 % PLATELET COUNT (test code = 1015) 383 K/UL Topher BrownCBC W/AUTO [id number] 00:00:00* Test Item Value Reference Range Interpretation Comme nts WBC (test code = 1001) 7.6 K/UL RBC (test code = 1002) 5.29 M/UL HEMOGLOBIN (test code = 1003) 14.3 G/DL HEMATOCRIT (test code = 1004) 42.5 % MCV (test code = 1005) 80.3 fL MCH (test code = 1006) 27.0 PG MCHC (test code = 1007) 33.6 G/DL RDW (test code = 1038) 15.3 % NEUTROPHILS (test code = 1008) 46.6 % LYMPHOCYTES (test code = 1010) 43.6 % MONOCYTES (test code = 1011) 6.3 % EOSINOPHILS (test code = 1012) 3.0 % BASOPHILS (test code = 1013) 0.5 % PLATELET COUNT (test code = 1015) 383 K/UL Tpoher BrownLIPID [id number] 00:00:00* Test Item Value Reference Range Interpretation Comme nts CHOLESTEROL (test code = 2210) 212 MG/DL TRIGLYCERIDES (test code = 2232) 213 MG/DL HDL CHOLESTEROL (test code = 2220) 34 MG/DL CALC LDL CHOL (test code = 2237) 135 MG/DL RISK RATIO LDL/HDL (test cod e = 2238) 3.98 RATIO Topher BrownHEMOGLOBIN [id number] 00:00:00* Test Item Value Reference Range Interpretation Comme nts HEMOGLOBIN A1c (test code = 35197) 6.4 % Topher Cam MorganCOMPREHENSIVE METABOLIC [id number] 00:00:00* Test Item Value Reference Range Interpretation Comme nts GLUCOSE (test code = 2217) 95 MG/DL BUN (test code = 2208) 8 MG/DL CREATININE (test code = 2214) 0.77 MG/DL eGFR AMER. (test cod e = 42760) 95 ML/MIN/1.73 eGFR NON- AMER. (test code = 40955) 82 ML/MIN/1.73 CALC BUN/CREAT (test code = 2235) 10 RATIO SODIUM (test code = 2231) 146 MEQ/L POTASSIUM (test code = 2228) 3.7 MEQ/L CHLORIDE (test code = 2215) 107 MEQ/L CARBON DIOXIDE (test code = 2206) 24 MEQ/L CALCIUM (test code = 2209) 9.6 MG/DL PROTEIN, TOTAL (test code = 2229) 7.7 G/DL ALBUMIN (test code = 2201) 4.9 G/DL CALC GLOBULIN (test code = 2240) 2.8 G/DL CALC A/G RATIO (test code = 2234) 1.8 RATIO BILIRUBIN, TOTAL (test code = 2207) 0.3 MG/DL ALKALINE PHOSPHATASE (test code = 2204) 100 U/L AST (test code = 2218) 9 U/L ALT (test code = 2219) 5 U/L [id number] 00:00:00* Test Item Value Reference Range Interpretation Comme nts TSH, THIRD GENERATION (test code = 2821) 1.930 UIU/ML VITAMIN D, 25 [id number] 00:00:00* Test Item Value Reference Range Interpretation Comme nts VITAMIN D, 25 OH (test code = 4958) 38 NG/ML CBC W/AUTO [id number] 00:00:00* Test Item Value Reference Range Interpretation Comme nts WBC (test code = 1001) 7.6 K/UL RBC (test code = 1002) 5.29 M/UL HEMOGLOBIN (test code = 1003) 14.3 G/DL HEMATOCRIT (test code = 1004) 42.5 % MCV (test code = 1005) 80.3 fL MCH (test code = 1006) 27.0 PG MCHC (test code = 1007) 33.6 G/DL RDW (test code = 1038) 15.3 % NEUTROPHILS (test code = 1008) 46.6 % LYMPHOCYTES (test code = 1010) 43.6 % MONOCYTES (test code = 1011) 6.3 % EOSINOPHILS (test code = 1012) 3.0 % BASOPHILS (test code = 1013) 0.5 % PLATELET COUNT (test code = 1015) 383 K/UL LIPID [id number] 00:00:00* Test Item Value Reference Range Interpretation Comme nts CHOLESTEROL (test code = 2210) 212 MG/DL TRIGLYCERIDES (test code = 2232) 213 MG/DL HDL CHOLESTEROL (test code = 2220) 34 MG/DL CALC LDL CHOL (test code = 2237) 135 MG/DL RISK RATIO LDL/HDL (test cod e = 2238) 3.98 RATIO HEMOGLOBIN [id number] 00:00:00* Test Item Value Reference Range Interpretation Comme nts HEMOGLOBIN A1c (test code = 57542) 6.4 % COMPREHENSIVE METABOLIC [id number] 00:00:00* Test Item Value Reference Range Interpretation Comme nts GLUCOSE (test code = 2217) 95 MG/DL BUN (test code = 2208) 8 MG/DL CREATININE (test code = 2214) 0.77 MG/DL eGFR AMER. (test cod e = 84801) 95 ML/MIN/1.73 eGFR NON- AMER. (test code = 20516) 82 ML/MIN/1.73 CALC BUN/CREAT (test code = 2235) 10 RATIO SODIUM (test code = 2231) 146 MEQ/L POTASSIUM (test code = 2228) 3.7 MEQ/L CHLORIDE (test code = 2215) 107 MEQ/L CARBON DIOXIDE (test code = 2206) 24 MEQ/L CALCIUM (test code = 2209) 9.6 MG/DL PROTEIN, TOTAL (test code = 2229) 7.7 G/DL ALBUMIN (test code = 2201) 4.9 G/DL CALC GLOBULIN (test code = 2240) 2.8 G/DL CALC A/G RATIO (test code = 2234) 1.8 RATIO BILIRUBIN, TOTAL (test code = 2207) 0.3 MG/DL ALKALINE PHOSPHATASE (test code = 2204) 100 U/L AST (test code = 2218) 9 U/L ALT (test code = 2219) 5 U/L [id number] 00:00:00* Test Item Value Reference Range Interpretation Comme [facility] TSH, THIRD GENERATION (test code = 2821) 1.930 UIU/ML VITAMIN D, 25 [id number] 00:00:00* Test Item Value Reference Range Interpretation Comme [facility] VITAMIN D, 25 OH (test code = 4958) 38 NG/ML CBC W/AUTO [id number] 00:00:00* Test Item Value Reference Range Interpretation Comme [facility] WBC (test code = 1001) 7.6 K/UL RBC (test code = 1002) 5.29 M/UL HEMOGLOBIN (test code = 1003) 14.3 G/DL HEMATOCRIT (test code = 1004) 42.5 % MCV (test code = 1005) 80.3 fL MCH (test code = 1006) 27.0 PG MCHC (test code = 1007) 33.6 G/DL RDW (test code = 1038) 15.3 % NEUTROPHILS (test code = 1008) 46.6 % LYMPHOCYTES (test code = 1010) 43.6 % MONOCYTES (test code = 1011) 6.3 % EOSINOPHILS (test code = 1012) 3.0 % BASOPHILS (test code = 1013) 0.5 % PLATELET COUNT (test code = 1015) 383 K/UL LIPID [id number] 00:00:00* Test Item Value Reference Range Interpretation Comme nts CHOLESTEROL (test code = 2210) 212 MG/DL TRIGLYCERIDES (test code = 2232) 213 MG/DL HDL CHOLESTEROL (test code = 2220) 34 MG/DL CALC LDL CHOL (test code = 2237) 135 MG/DL RISK RATIO LDL/HDL (test cod e = 2238) 3.98 RATIO HEMOGLOBIN [id number] 00:00:00* Test Item Value Reference Range Interpretation Comme nts HEMOGLOBIN A1c (test code = 47899) 6.4 % COMPREHENSIVE METABOLIC [id number] 00:00:00* Test Item Value Reference Range Interpretation Comme nts GLUCOSE (test code = 2217) 95 MG/DL BUN (test code = 2208) 8 MG/DL CREATININE (test code = 2214) 0.77 MG/DL eGFR AMER. (test cod e = 49510) 95 ML/MIN/1.73 eGFR NON- AMER. (test code = 49230) 82 ML/MIN/1.73 CALC BUN/CREAT (test code = 2235) 10 RATIO SODIUM (test code = 2231) 146 MEQ/L POTASSIUM (test code = 2228) 3.7 MEQ/L CHLORIDE (test code = 2215) 107 MEQ/L CARBON DIOXIDE (test code = 2206) 24 MEQ/L CALCIUM (test code = 2209) 9.6 MG/DL PROTEIN, TOTAL (test code = 2229) 7.7 G/DL ALBUMIN (test code = 2201) 4.9 G/DL CALC GLOBULIN (test code = 2240) 2.8 G/DL CALC A/G RATIO (test code = 2234) 1.8 RATIO BILIRUBIN, TOTAL (test code = 2207) 0.3 MG/DL ALKALINE PHOSPHATASE (test code = 2204) 100 U/L AST (test code = 2218) 9 U/L ALT (test code = 2219) 5 U/L [id number] 00:00:00* Test Item Value Reference Range Interpretation Comme nts TSH, THIRD GENERATION (test code = 2821) 1.930 UIU/ML VITAMIN D, 25 [id number] 00:00:00* Test Item Value Reference Range Interpretation Comme nts VITAMIN D, 25 OH (test code = 4958) 38 NG/ML CBC W/AUTO [id number] 00:00:00* Test Item Value Reference Range Interpretation Comme nts WBC (test code = 1001) 7.6 K/UL RBC (test code = 1002) 5.29 M/UL HEMOGLOBIN (test code = 1003) 14.3 G/DL HEMATOCRIT (test code = 1004) 42.5 % MCV (test code = 1005) 80.3 fL MCH (test code = 1006) 27.0 PG MCHC (test code = 1007) 33.6 G/DL RDW (test code = 1038) 15.3 % NEUTROPHILS (test code = 1008) 46.6 % LYMPHOCYTES (test code = 1010) 43.6 % MONOCYTES (test code = 1011) 6.3 % EOSINOPHILS (test code = 1012) 3.0 % BASOPHILS (test code = 1013) 0.5 % PLATELET COUNT (test code = 1015) 383 K/UL LIPID [id number] 00:00:00* Test Item Value Reference Range Interpretation Comme nts CHOLESTEROL (test code = 2210) 212 MG/DL TRIGLYCERIDES (test code = 2232) 213 MG/DL HDL CHOLESTEROL (test code = 2220) 34 MG/DL CALC LDL CHOL (test code = 2237) 135 MG/DL RISK RATIO LDL/HDL (test cod e = 2238) 3.98 RATIO HEMOGLOBIN [id number] 00:00:00* Test Item Value Reference Range Interpretation Comme nts HEMOGLOBIN A1c (test code = 35979) 6.4 % COMPREHENSIVE METABOLIC [id number] 00:00:00* Test Item Value Reference Range Interpretation Comme nts GLUCOSE (test code = 2217) 95 MG/DL BUN (test code = 2208) 8 MG/DL CREATININE (test code = 2214) 0.77 MG/DL eGFR AMER. (test cod e = 76634) 95 ML/MIN/1.73 eGFR NON- AMER. (test code = 73179) 82 ML/MIN/1.73 CALC BUN/CREAT (test code = 2235) 10 RATIO SODIUM (test code = 2231) 146 MEQ/L POTASSIUM (test code = 2228) 3.7 MEQ/L CHLORIDE (test code = 2215) 107 MEQ/L CARBON DIOXIDE (test code = 2206) 24 MEQ/L CALCIUM (test code = 2209) 9.6 MG/DL PROTEIN, TOTAL (test code = 2229) 7.7 G/DL ALBUMIN (test code = 2201) 4.9 G/DL CALC GLOBULIN (test code = 2240) 2.8 G/DL CALC A/G RATIO (test code = 2234) 1.8 RATIO BILIRUBIN, TOTAL (test code = 2207) 0.3 MG/DL ALKALINE PHOSPHATASE (test code = 2204) 100 U/L AST (test code = 2218) 9 U/L ALT (test code = 2219) 5 U/L [id number] 00:00:00* Test Item Value Reference Range Interpretation Comme nts TSH, THIRD GENERATION (test code = 2821) 1.930 UIU/ML VITAMIN D, 25 [id number] 00:00:00* Test Item Value Reference Range Interpretation Comme nts VITAMIN D, 25 OH (test code = 4958) 38 NG/ML CBC W/AUTO [id number] 00:00:00* Test Item Value Reference Range Interpretation Comme nts WBC (test code = 1001) 7.6 K/UL RBC (test code = 1002) 5.29 M/UL HEMOGLOBIN (test code = 1003) 14.3 G/DL HEMATOCRIT (test code = 1004) 42.5 % MCV (test code = 1005) 80.3 fL MCH (test code = 1006) 27.0 PG MCHC (test code = 1007) 33.6 G/DL RDW (test code = 1038) 15.3 % NEUTROPHILS (test code = 1008) 46.6 % LYMPHOCYTES (test code = 1010) 43.6 % MONOCYTES (test code = 1011) 6.3 % EOSINOPHILS (test code = 1012) 3.0 % BASOPHILS (test code = 1013) 0.5 % PLATELET COUNT (test code = 1015) 383 K/UL LIPID [id number] 00:00:00* Test Item Value Reference Range Interpretation Comme nts CHOLESTEROL (test code = 2210) 212 MG/DL TRIGLYCERIDES (test code = 2232) 213 MG/DL HDL CHOLESTEROL (test code = 2220) 34 MG/DL CALC LDL CHOL (test code = 2237) 135 MG/DL RISK RATIO LDL/HDL (test cod e = 2238) 3.98 RATIO HEMOGLOBIN [id number] 00:00:00* Test Item Value Reference Range Interpretation Comme [facility] HEMOGLOBIN A1c (test code = 37013) 6.4 % COMPREHENSIVE METABOLIC [id number] 00:00:00* Test Item Value Reference Range Interpretation Comme nts GLUCOSE (test code = 2217) 95 MG/DL BUN (test code = 2208) 8 MG/DL CREATININE (test code = 2214) 0.77 MG/DL eGFR AMER. (test cod e = 37816) 95 ML/MIN/1.73 eGFR NON- AMER. (test code = 86451) 82 ML/MIN/1.73 CALC BUN/CREAT (test code = 2235) 10 RATIO SODIUM (test code = 2231) 146 MEQ/L POTASSIUM (test code = 2228) 3.7 MEQ/L CHLORIDE (test code = 2215) 107 MEQ/L CARBON DIOXIDE (test code = 2206) 24 MEQ/L CALCIUM (test code = 2209) 9.6 MG/DL PROTEIN, TOTAL (test code = 2229) 7.7 G/DL ALBUMIN (test code = 2201) 4.9 G/DL CALC GLOBULIN (test code = 2240) 2.8 G/DL CALC A/G RATIO (test code = 2234) 1.8 RATIO BILIRUBIN, TOTAL (test code = 2207) 0.3 MG/DL ALKALINE PHOSPHATASE (test code = 2204) 100 U/L AST (test code = 2218) 9 U/L ALT (test code = 2219) 5 U/L [id number] 00:00:00* Test Item Value Reference Range Interpretation Comme [facility] TSH, THIRD GENERATION (test code = 2821) 1.930 UIU/ML VITAMIN D, 25 [id number] 00:00:00* Test Item Value Reference Range Interpretation Comme [facility] VITAMIN D, 25 OH (test code = 4958) 38 NG/ML CBC W/AUTO [id number] 00:00:00* Test Item Value Reference Range Interpretation Comme [facility] WBC (test code = 1001) 7.6 K/UL RBC (test code = 1002) 5.29 M/UL HEMOGLOBIN (test code = 1003) 14.3 G/DL HEMATOCRIT (test code = 1004) 42.5 % MCV (test code = 1005) 80.3 fL MCH (test code = 1006) 27.0 PG MCHC (test code = 1007) 33.6 G/DL RDW (test code = 1038) 15.3 % NEUTROPHILS (test code = 1008) 46.6 % LYMPHOCYTES (test code = 1010) 43.6 % MONOCYTES (test code = 1011) 6.3 % EOSINOPHILS (test code = 1012) 3.0 % BASOPHILS (test code = 1013) 0.5 % PLATELET COUNT (test code = 1015) 383 K/UL CBC W/AUTO [id number] 00:00:00* Test Item Value Reference Range Interpretation Comme nts WBC (test code = 1001) 7.6 K/UL RBC (test code = 1002) 5.29 M/UL HEMOGLOBIN (test code = 1003) 14.3 G/DL HEMATOCRIT (test code = 1004) 42.5 % MCV (test code = 1005) 80.3 fL MCH (test code = 1006) 27.0 PG MCHC (test code = 1007) 33.6 G/DL RDW (test code = 1038) 15.3 % NEUTROPHILS (test code = 1008) 46.6 % LYMPHOCYTES (test code = 1010) 43.6 % MONOCYTES (test code = 1011) 6.3 % EOSINOPHILS (test code = 1012) 3.0 % BASOPHILS (test code = 1013) 0.5 % PLATELET COUNT (test code = 1015) 383 K/UL LIPID [id number] 00:00:00* Test Item Value Reference Range Interpretation Comme nts CHOLESTEROL (test code = 2210) 212 MG/DL TRIGLYCERIDES (test code = 2232) 213 MG/DL HDL CHOLESTEROL (test code = 2220) 34 MG/DL CALC LDL CHOL (test code = 2237) 135 MG/DL RISK RATIO LDL/HDL (test cod e = 2238) 3.98 RATIO HEMOGLOBIN [id number] 00:00:00* Test Item Value Reference Range Interpretation Comme nts HEMOGLOBIN A1c (test code = 89006) 6.4 % COMPREHENSIVE METABOLIC [id number] 00:00:00* Test Item Value Reference Range Interpretation Comme nts GLUCOSE (test code = 2217) 95 MG/DL BUN (test code = 2208) 8 MG/DL CREATININE (test code = 2214) 0.77 MG/DL eGFR AMER. (test cod e = 76155) 95 ML/MIN/1.73 eGFR NON- AMER. (test code = 06090) 82 ML/MIN/1.73 CALC BUN/CREAT (test code = 2235) 10 RATIO SODIUM (test code = 2231) 146 MEQ/L POTASSIUM (test code = 2228) 3.7 MEQ/L CHLORIDE (test code = 2215) 107 MEQ/L CARBON DIOXIDE (test code = 2206) 24 MEQ/L CALCIUM (test code = 2209) 9.6 MG/DL PROTEIN, TOTAL (test code = 2229) 7.7 G/DL ALBUMIN (test code = 2201) 4.9 G/DL CALC GLOBULIN (test code = 2240) 2.8 G/DL CALC A/G RATIO (test code = 2234) 1.8 RATIO BILIRUBIN, TOTAL (test code = 2207) 0.3 MG/DL ALKALINE PHOSPHATASE (test code = 2204) 100 U/L AST (test code = 2218) 9 U/L ALT (test code = 2219) 5 U/L [id number] 00:00:00* Test Item Value Reference Range Interpretation Comme [facility] TSH, THIRD GENERATION (test code = 2821) 1.930 UIU/ML VITAMIN D, 25 [id number] 00:00:00* Test Item Value Reference Range Interpretation Comme [facility] VITAMIN D, 25 OH (test code = 4958) 38 NG/ML LIPID [id number] 00:00:00* Test Item Value Reference Range Interpretation Comme nts CHOLESTEROL (test code = 2210) 212 MG/DL TRIGLYCERIDES (test code = 2232) 213 MG/DL HDL CHOLESTEROL (test code = 2220) 34 MG/DL CALC LDL CHOL (test code = 2237) 135 MG/DL RISK RATIO LDL/HDL (test cod e = 2238) 3.98 RATIO HEMOGLOBIN [id number] 00:00:00* Test Item Value Reference Range Interpretation Comme [facility] HEMOGLOBIN A1c (test code = 36106) 6.4 % COMPREHENSIVE METABOLIC [id number] 00:00:00* Test Item Value Reference Range Interpretation Comme nts GLUCOSE (test code = 2217) 95 MG/DL BUN (test code = 2208) 8 MG/DL CREATININE (test code = 2214) 0.77 MG/DL eGFR AMER. (test cod e = 73672) 95 ML/MIN/1.73 eGFR NON- AMER. (test code = 34542) 82 ML/MIN/1.73 CALC BUN/CREAT (test code = 2235) 10 RATIO SODIUM (test code = 2231) 146 MEQ/L POTASSIUM (test code = 2228) 3.7 MEQ/L CHLORIDE (test code = 2215) 107 MEQ/L CARBON DIOXIDE (test code = 2206) 24 MEQ/L CALCIUM (test code = 2209) 9.6 MG/DL PROTEIN, TOTAL (test code = 2229) 7.7 G/DL ALBUMIN (test code = 2201) 4.9 G/DL CALC GLOBULIN (test code = 2240) 2.8 G/DL CALC A/G RATIO (test code = 2234) 1.8 RATIO BILIRUBIN, TOTAL (test code = 2207) 0.3 MG/DL ALKALINE PHOSPHATASE (test code = 2204) 100 U/L AST (test code = 2218) 9 U/L ALT (test code = 2219) 5 U/L [id number] 00:00:00* Test Item Value Reference Range Interpretation Comme nts TSH, THIRD GENERATION (test code = 2821) 1.930 UIU/ML CBC W/AUTO [id number] 00:00:00* Test Item Value Reference Range Interpretation Comme nts WBC (test code = 1001) 7.6 K/UL RBC (test code = 1002) 5.29 M/UL HEMOGLOBIN (test code = 1003) 14.3 G/DL HEMATOCRIT (test code = 1004) 42.5 % MCV (test code = 1005) 80.3 fL MCH (test code = 1006) 27.0 PG MCHC (test code = 1007) 33.6 G/DL RDW (test code = 1038) 15.3 % NEUTROPHILS (test code = 1008) 46.6 % LYMPHOCYTES (test code = 1010) 43.6 % MONOCYTES (test code = 1011) 6.3 % EOSINOPHILS (test code = 1012) 3.0 % BASOPHILS (test code = 1013) 0.5 % PLATELET COUNT (test code = 1015) 383 K/UL VITAMIN D, 25 [id number] 00:00:00* Test Item Value Reference Range Interpretation Comme nts VITAMIN D, 25 OH (test code = 4958) 38 NG/ML LIPID [id number] 00:00:00* Test Item Value Reference Range Interpretation Comme nts CHOLESTEROL (test code = 2210) 212 MG/DL TRIGLYCERIDES (test code = 2232) 213 MG/DL HDL CHOLESTEROL (test code = 2220) 34 MG/DL CALC LDL CHOL (test code = 2237) 135 MG/DL RISK RATIO LDL/HDL (test cod e = 2238) 3.98 RATIO HEMOGLOBIN [id number] 00:00:00* Test Item Value Reference Range Interpretation Comme nts HEMOGLOBIN A1c (test code = 73662) 6.4 % COMPREHENSIVE METABOLIC [id number] 00:00:00* Test Item Value Reference Range Interpretation Comme nts GLUCOSE (test code = 2217) 95 MG/DL BUN (test code = 2208) 8 MG/DL CREATININE (test code = 2214) 0.77 MG/DL eGFR AMER. (test cod e = 13016) 95 ML/MIN/1.73 eGFR NON- AMER. (test code = 17593) 82 ML/MIN/1.73 CALC BUN/CREAT (test code = 2235) 10 RATIO SODIUM (test code = 2231) 146 MEQ/L POTASSIUM (test code = 2228) 3.7 MEQ/L CHLORIDE (test code = 2215) 107 MEQ/L CARBON DIOXIDE (test code = 2206) 24 MEQ/L CALCIUM (test code = 2209) 9.6 MG/DL PROTEIN, TOTAL (test code = 2229) 7.7 G/DL ALBUMIN (test code = 2201) 4.9 G/DL CALC GLOBULIN (test code = 2240) 2.8 G/DL CALC A/G RATIO (test code = 2234) 1.8 RATIO BILIRUBIN, TOTAL (test code = 2207) 0.3 MG/DL ALKALINE PHOSPHATASE (test code = 2204) 100 U/L AST (test code = 2218) 9 U/L ALT (test code = 2219) 5 U/L [id number] 00:00:00* Test Item Value Reference Range Interpretation Comme nts TSH, THIRD GENERATION (test code = 2821) 1.930 UIU/ML VITAMIN D, 25 [id number] 00:00:00* Test Item Value Reference Range Interpretation Comme nts VITAMIN D, 25 OH (test code = 4958) 38 NG/ML CBC W/AUTO [id number] 00:00:00* Test Item Value Reference Range Interpretation Comme nts WBC (test code = 1001) 7.6 K/UL RBC (test code = 1002) 5.29 M/UL HEMOGLOBIN (test code = 1003) 14.3 G/DL HEMATOCRIT (test code = 1004) 42.5 % MCV (test code = 1005) 80.3 fL MCH (test code = 1006) 27.0 PG MCHC (test code = 1007) 33.6 G/DL RDW (test code = 1038) 15.3 % NEUTROPHILS (test code = 1008) 46.6 % LYMPHOCYTES (test code = 1010) 43.6 % MONOCYTES (test code = 1011) 6.3 % EOSINOPHILS (test code = 1012) 3.0 % BASOPHILS (test code = 1013) 0.5 % PLATELET COUNT (test code = 1015) 383 K/UL LIPID [id number] 00:00:00* Test Item Value Reference Range Interpretation Comme nts CHOLESTEROL (test code = 2210) 212 MG/DL TRIGLYCERIDES (test code = 2232) 213 MG/DL HDL CHOLESTEROL (test code = 2220) 34 MG/DL CALC LDL CHOL (test code = 2237) 135 MG/DL RISK RATIO LDL/HDL (test cod e = 2238) 3.98 RATIO HEMOGLOBIN [id number] 00:00:00* Test Item Value Reference Range Interpretation Comme nts HEMOGLOBIN A1c (test code = 01388) 6.4 % COMPREHENSIVE METABOLIC [id number] 00:00:00* Test Item Value Reference Range Interpretation Comme nts GLUCOSE (test code = 2217) 95 MG/DL BUN (test code = 2208) 8 MG/DL CREATININE (test code = 2214) 0.77 MG/DL eGFR AMER. (test cod e = 80950) 95 ML/MIN/1.73 eGFR NON- AMER. (test code = 33692) 82 ML/MIN/1.73 CALC BUN/CREAT (test code = 2235) 10 RATIO SODIUM (test code = 2231) 146 MEQ/L POTASSIUM (test code = 2228) 3.7 MEQ/L CHLORIDE (test code = 2215) 107 MEQ/L CARBON DIOXIDE (test code = 2206) 24 MEQ/L CALCIUM (test code = 2209) 9.6 MG/DL PROTEIN, TOTAL (test code = 2229) 7.7 G/DL ALBUMIN (test code = 2201) 4.9 G/DL CALC GLOBULIN (test code = 2240) 2.8 G/DL CALC A/G RATIO (test code = 2234) 1.8 RATIO BILIRUBIN, TOTAL (test code = 2207) 0.3 MG/DL ALKALINE PHOSPHATASE (test code = 2204) 100 U/L AST (test code = 2218) 9 U/L ALT (test code = 2219) 5 U/L Topher [id number] 00:00:00* Test Item Value Reference Range Interpretation Comme [facility] TSH, THIRD GENERATION (test code = 2821) 1.930 UIU/ML Topher Cam MorganVITAMIN D, 25 [id number] 00:00:00* Test Item Value Reference Range Interpretation Comme [facility] VITAMIN D, 25 OH (test code = 4958) 38 NG/ML Topher BrownCBC W/AUTO [id number] 00:00:00* Test Item Value Reference Range Interpretation Comme [facility] WBC (test code = 1001) 7.6 K/UL RBC (test code = 1002) 5.29 M/UL HEMOGLOBIN (test code = 1003) 14.3 G/DL HEMATOCRIT (test code = 1004) 42.5 % MCV (test code = 1005) 80.3 fL MCH (test code = 1006) 27.0 PG MCHC (test code = 1007) 33.6 G/DL RDW (test code = 1038) 15.3 % NEUTROPHILS (test code = 1008) 46.6 % LYMPHOCYTES (test code = 1010) 43.6 % MONOCYTES (test code = 1011) 6.3 % EOSINOPHILS (test code = 1012) 3.0 % BASOPHILS (test code = 1013) 0.5 % PLATELET COUNT (test code = 1015) 383 K/UL Topher BrownLIPID [id number] 00:00:00* Test Item Value Reference Range Interpretation Comme nts CHOLESTEROL (test code = 2210) 212 MG/DL TRIGLYCERIDES (test code = 2232) 213 MG/DL HDL CHOLESTEROL (test code = 2220) 34 MG/DL CALC LDL CHOL (test code = 2237) 135 MG/DL RISK RATIO LDL/HDL (test cod e = 2238) 3.98 RATIO Topher BrownHEMOGLOBIN [id number] 00:00:00* Test Item Value Reference Range Interpretation Comme nts HEMOGLOBIN A1c (test code = 31024) 6.4 % Topher BrownCOMPREHENSIVE METABOLIC [id number] 00:00:00* Test Item Value Reference Range Interpretation Comme nts GLUCOSE (test code = 2217) 95 MG/DL BUN (test code = 2208) 8 MG/DL CREATININE (test code = 2214) 0.77 MG/DL eGFR AMER. (test cod e = 45474) 95 ML/MIN/1.73 eGFR NON- AMER. (test code = 26224) 82 ML/MIN/1.73 CALC BUN/CREAT (test code = 2235) 10 RATIO SODIUM (test code = 2231) 146 MEQ/L POTASSIUM (test code = 2228) 3.7 MEQ/L CHLORIDE (test code = 2215) 107 MEQ/L CARBON DIOXIDE (test code = 2206) 24 MEQ/L CALCIUM (test code = 2209) 9.6 MG/DL PROTEIN, TOTAL (test code = 2229) 7.7 G/DL ALBUMIN (test code = 2201) 4.9 G/DL CALC GLOBULIN (test code = 2240) 2.8 G/DL CALC A/G RATIO (test code = 2234) 1.8 RATIO BILIRUBIN, TOTAL (test code = 2207) 0.3 MG/DL ALKALINE PHOSPHATASE (test code = 2204) 100 U/L AST (test code = 2218) 9 U/L ALT (test code = 2219) 5 U/L Topher [id number] 00:00:00* Test Item Value Reference Range Interpretation Comme nts TSH, THIRD GENERATION (test code = 2821) 1.930 UIU/ML Topher BrownVITAMIN D, 25 [id number] 00:00:00* Test Item Value Reference Range Interpretation Comme nts VITAMIN D, 25 OH (test code = 4958) 38 NG/ML Topher BrownCBC W/AUTO [id number] 00:00:00* Test Item Value Reference Range Interpretation Comme nts WBC (test code = 1001) 7.6 K/UL RBC (test code = 1002) 5.29 M/UL HEMOGLOBIN (test code = 1003) 14.3 G/DL HEMATOCRIT (test code = 1004) 42.5 % MCV (test code = 1005) 80.3 fL MCH (test code = 1006) 27.0 PG MCHC (test code = 1007) 33.6 G/DL RDW (test code = 1038) 15.3 % NEUTROPHILS (test code = 1008) 46.6 % LYMPHOCYTES (test code = 1010) 43.6 % MONOCYTES (test code = 1011) 6.3 % EOSINOPHILS (test code = 1012) 3.0 % BASOPHILS (test code = 1013) 0.5 % PLATELET COUNT (test code = 1015) 383 K/UL Topher BrownLIPID [id number] 00:00:00* Test Item Value Reference Range Interpretation Comme nts CHOLESTEROL (test code = 2210) 212 MG/DL TRIGLYCERIDES (test code = 2232) 213 MG/DL HDL CHOLESTEROL (test code = 2220) 34 MG/DL CALC LDL CHOL (test code = 2237) 135 MG/DL RISK RATIO LDL/HDL (test cod e = 2238) 3.98 RATIO Topher BrownHEMOGLOBIN [id number] 00:00:00* Test Item Value Reference Range Interpretation Comme [facility] HEMOGLOBIN A1c (test code = 34150) 6.4 % Topher BrownLIPID [id number] 00:00:00* Test Item Value Reference Range Interpretation Comme nts CHOLESTEROL (test code = 2210) 212 MG/DL TRIGLYCERIDES (test code = 2232) 213 MG/DL HDL CHOLESTEROL (test code = 2220) 34 MG/DL CALC LDL CHOL (test code = 2237) 135 MG/DL RISK RATIO LDL/HDL (test cod e = 2238) 3.98 RATIO Topher BrownCOMPREHENSIVE METABOLIC [id number] 00:00:00* Test Item Value Reference Range Interpretation Comme nts GLUCOSE (test code = 2217) 95 MG/DL BUN (test code = 2208) 8 MG/DL CREATININE (test code = 2214) 0.77 MG/DL eGFR AMER. (test cod e = 66490) 95 ML/MIN/1.73 eGFR NON- AMER. (test code = 55767) 82 ML/MIN/1.73 CALC BUN/CREAT (test code = 2235) 10 RATIO SODIUM (test code = 2231) 146 MEQ/L POTASSIUM (test code = 2228) 3.7 MEQ/L CHLORIDE (test code = 2215) 107 MEQ/L CARBON DIOXIDE (test code = 2206) 24 MEQ/L CALCIUM (test code = 2209) 9.6 MG/DL PROTEIN, TOTAL (test code = 2229) 7.7 G/DL ALBUMIN (test code = 2201) 4.9 G/DL CALC GLOBULIN (test code = 2240) 2.8 G/DL CALC A/G RATIO (test code = 2234) 1.8 RATIO BILIRUBIN, TOTAL (test code = 2207) 0.3 MG/DL ALKALINE PHOSPHATASE (test code = 2204) 100 U/L AST (test code = 2218) 9 U/L ALT (test code = 2219) 5 U/L Topher [id number] 00:00:00* Test Item Value Reference Range Interpretation Comme [facility] TSH, THIRD GENERATION (test code = 2821) 1.930 UIU/ML Topher BrownVITAMIN D, 25 [id number] 00:00:00* Test Item Value Reference Range Interpretation Comme [facility] VITAMIN D, 25 OH (test code = 4958) 38 NG/ML Topher BrownCBC W/AUTO [id number] 00:00:00* Test Item Value Reference Range Interpretation Comme nts WBC (test code = 1001) 7.6 K/UL RBC (test code = 1002) 5.29 M/UL HEMOGLOBIN (test code = 1003) 14.3 G/DL HEMATOCRIT (test code = 1004) 42.5 % MCV (test code = 1005) 80.3 fL MCH (test code = 1006) 27.0 PG MCHC (test code = 1007) 33.6 G/DL RDW (test code = 1038) 15.3 % NEUTROPHILS (test code = 1008) 46.6 % LYMPHOCYTES (test code = 1010) 43.6 % MONOCYTES (test code = 1011) 6.3 % EOSINOPHILS (test code = 1012) 3.0 % BASOPHILS (test code = 1013) 0.5 % PLATELET COUNT (test code = 1015) 383 K/UL Topher BrownLIPID [id number] 00:00:00* Test Item Value Reference Range Interpretation Comme nts CHOLESTEROL (test code = 2210) 212 MG/DL TRIGLYCERIDES (test code = 2232) 213 MG/DL HDL CHOLESTEROL (test code = 2220) 34 MG/DL CALC LDL CHOL (test code = 2237) 135 MG/DL RISK RATIO LDL/HDL (test cod e = 2238) 3.98 RATIO Topher BrownHEMOGLOBIN [id number] 00:00:00* Test Item Value Reference Range Interpretation Comme nts HEMOGLOBIN A1c (test code = 90684) 6.4 % Topher BrownCOMPREHENSIVE METABOLIC [id number] 00:00:00* Test Item Value Reference Range Interpretation Comme nts GLUCOSE (test code = 2217) 95 MG/DL BUN (test code = 2208) 8 MG/DL CREATININE (test code = 2214) 0.77 MG/DL eGFR AMER. (test cod e = 97359) 95 ML/MIN/1.73 eGFR NON- AMER. (test code = 72574) 82 ML/MIN/1.73 CALC BUN/CREAT (test code = 2235) 10 RATIO SODIUM (test code = 2231) 146 MEQ/L POTASSIUM (test code = 2228) 3.7 MEQ/L CHLORIDE (test code = 2215) 107 MEQ/L CARBON DIOXIDE (test code = 2206) 24 MEQ/L CALCIUM (test code = 2209) 9.6 MG/DL PROTEIN, TOTAL (test code = 2229) 7.7 G/DL ALBUMIN (test code = 2201) 4.9 G/DL CALC GLOBULIN (test code = 2240) 2.8 G/DL CALC A/G RATIO (test code = 2234) 1.8 RATIO BILIRUBIN, TOTAL (test code = 2207) 0.3 MG/DL ALKALINE PHOSPHATASE (test code = 2204) 100 U/L AST (test code = 2218) 9 U/L ALT (test code = 2219) 5 U/L Topher [id number] 00:00:00* Test Item Value Reference Range Interpretation Comme [facility] TSH, THIRD GENERATION (test code = 2821) 1.930 UIU/ML Topher BrownVITAMIN D, 25 [id number] 00:00:00* Test Item Value Reference Range Interpretation Comme [facility] VITAMIN D, 25 OH (test code = 4958) 38 NG/ML Topher BrownHEMOGLOBIN [id number] 00:00:00* Test Item Value Reference Range Interpretation Comme [facility] HEMOGLOBIN A1c (test code = 00447) 6.4 % Topher BrownCOMPREHENSIVE METABOLIC [id number] 00:00:00* Test Item Value Reference Range Interpretation Comme [facility] GLUCOSE (test code = 2217) 95 MG/DL BUN (test code = 2208) 8 MG/DL CREATININE (test code = 2214) 0.77 MG/DL eGFR AMER. (test cod e = 65525) 95 ML/MIN/1.73 eGFR NON- AMER. (test code = 38615) 82 ML/MIN/1.73 CALC BUN/CREAT (test code = 2235) 10 RATIO SODIUM (test code = 2231) 146 MEQ/L POTASSIUM (test code = 2228) 3.7 MEQ/L CHLORIDE (test code = 2215) 107 MEQ/L CARBON DIOXIDE (test code = 2206) 24 MEQ/L CALCIUM (test code = 2209) 9.6 MG/DL PROTEIN, TOTAL (test code = 2229) 7.7 G/DL ALBUMIN (test code = 2201) 4.9 G/DL CALC GLOBULIN (test code = 2240) 2.8 G/DL CALC A/G RATIO (test code = 2234) 1.8 RATIO BILIRUBIN, TOTAL (test code = 2207) 0.3 MG/DL ALKALINE PHOSPHATASE (test code = 2204) 100 U/L AST (test code = 2218) 9 U/L ALT (test code = 2219) 5 U/L Topher [id number] 00:00:00* Test Item Value Reference Range Interpretation Comme [facility] TSH, THIRD GENERATION (test code = 2821) 1.930 UIU/ML Topher BrownVITAMIN D, 25 [id number] 00:00:00* Test Item Value Reference Range Interpretation Comme [facility] VITAMIN D, 25 OH (test code = 4958) 38 NG/ML Topher BrownCBC W/AUTO [id number] 00:00:00* Test Item Value Reference Range Interpretation Comme nts WBC (test code = 1001) 7.6 K/UL RBC (test code = 1002) 5.29 M/UL HEMOGLOBIN (test code = 1003) 14.3 G/DL HEMATOCRIT (test code = 1004) 42.5 % MCV (test code = 1005) 80.3 fL MCH (test code = 1006) 27.0 PG MCHC (test code = 1007) 33.6 G/DL RDW (test code = 1038) 15.3 % NEUTROPHILS (test code = 1008) 46.6 % LYMPHOCYTES (test code = 1010) 43.6 % MONOCYTES (test code = 1011) 6.3 % EOSINOPHILS (test code = 1012) 3.0 % BASOPHILS (test code = 1013) 0.5 % PLATELET COUNT (test code = 1015) 383 K/UL Topher BrownLIPID [id number] 00:00:00* Test Item Value Reference Range Interpretation Comme nts CHOLESTEROL (test code = 2210) 212 MG/DL TRIGLYCERIDES (test code = 2232) 213 MG/DL HDL CHOLESTEROL (test code = 2220) 34 MG/DL CALC LDL CHOL (test code = 2237) 135 MG/DL RISK RATIO LDL/HDL (test cod e = 2238) 3.98 RATIO Topher BrownHEMOGLOBIN [id number] 00:00:00* Test Item Value Reference Range Interpretation Comme [facility] HEMOGLOBIN A1c (test code = 46455) 6.4 % Topher BrownCOMPREHENSIVE METABOLIC [id number] 00:00:00* Test Item Value Reference Range Interpretation Comme nts GLUCOSE (test code = 2217) 95 MG/DL BUN (test code = 2208) 8 MG/DL CREATININE (test code = 2214) 0.77 MG/DL eGFR AMER. (test cod e = 05864) 95 ML/MIN/1.73 eGFR NON- AMER. (test code = 43873) 82 ML/MIN/1.73 CALC BUN/CREAT (test code = 2235) 10 RATIO SODIUM (test code = 2231) 146 MEQ/L POTASSIUM (test code = 2228) 3.7 MEQ/L CHLORIDE (test code = 2215) 107 MEQ/L CARBON DIOXIDE (test code = 2206) 24 MEQ/L CALCIUM (test code = 2209) 9.6 MG/DL PROTEIN, TOTAL (test code = 2229) 7.7 G/DL ALBUMIN (test code = 2201) 4.9 G/DL CALC GLOBULIN (test code = 2240) 2.8 G/DL CALC A/G RATIO (test code = 2234) 1.8 RATIO BILIRUBIN, TOTAL (test code = 2207) 0.3 MG/DL ALKALINE PHOSPHATASE (test code = 2204) 100 U/L AST (test code = 2218) 9 U/L ALT (test code = 2219) 5 U/L Topher [id number] 00:00:00* Test Item Value Reference Range Interpretation Comme [facility] TSH, THIRD GENERATION (test code = 2821) 1.930 UIU/ML Topher Cam MorganVITAMIN D, 25 [id number] 00:00:00* Test Item Value Reference Range Interpretation Comme [facility] VITAMIN D, 25 OH (test code = 4958) 38 NG/ML Topher BrownCBC W/AUTO [id number] 00:00:00* Test Item Value Reference Range Interpretation Comme [facility] WBC (test code = 1001) 7.6 K/UL RBC (test code = 1002) 5.29 M/UL HEMOGLOBIN (test code = 1003) 14.3 G/DL HEMATOCRIT (test code = 1004) 42.5 % MCV (test code = 1005) 80.3 fL MCH (test code = 1006) 27.0 PG MCHC (test code = 1007) 33.6 G/DL RDW (test code = 1038) 15.3 % NEUTROPHILS (test code = 1008) 46.6 % LYMPHOCYTES (test code = 1010) 43.6 % MONOCYTES (test code = 1011) 6.3 % EOSINOPHILS (test code = 1012) 3.0 % BASOPHILS (test code = 1013) 0.5 % PLATELET COUNT (test code = 1015) 383 K/UL Topher BrownLIPID [id number] 00:00:00* Test Item Value Reference Range Interpretation Comme nts CHOLESTEROL (test code = 2210) 212 MG/DL TRIGLYCERIDES (test code = 2232) 213 MG/DL HDL CHOLESTEROL (test code = 2220) 34 MG/DL CALC LDL CHOL (test code = 2237) 135 MG/DL RISK RATIO LDL/HDL (test cod e = 2238) 3.98 RATIO Topher BrownHEMOGLOBIN [id number] 00:00:00* Test Item Value Reference Range Interpretation Comme nts HEMOGLOBIN A1c (test code = 62321) 6.4 % Topher BrownCOMPREHENSIVE METABOLIC [id number] 00:00:00* Test Item Value Reference Range Interpretation Comme nts GLUCOSE (test code = 2217) 95 MG/DL BUN (test code = 2208) 8 MG/DL CREATININE (test code = 2214) 0.77 MG/DL eGFR AMER. (test cod e = 23494) 95 ML/MIN/1.73 eGFR NON- AMER. (test code = 46781) 82 ML/MIN/1.73 CALC BUN/CREAT (test code = 2235) 10 RATIO SODIUM (test code = 2231) 146 MEQ/L POTASSIUM (test code = 2228) 3.7 MEQ/L CHLORIDE (test code = 2215) 107 MEQ/L CARBON DIOXIDE (test code = 2206) 24 MEQ/L CALCIUM (test code = 2209) 9.6 MG/DL PROTEIN, TOTAL (test code = 2229) 7.7 G/DL ALBUMIN (test code = 2201) 4.9 G/DL CALC GLOBULIN (test code = 2240) 2.8 G/DL CALC A/G RATIO (test code = 2234) 1.8 RATIO BILIRUBIN, TOTAL (test code = 2207) 0.3 MG/DL ALKALINE PHOSPHATASE (test code = 2204) 100 U/L AST (test code = 2218) 9 U/L ALT (test code = 2219) 5 U/L Topher [id number] 00:00:00* Test Item Value Reference Range Interpretation Comme nts TSH, THIRD GENERATION (test code = 2821) 1.930 UIU/ML Topher BrownVITAMIN D, 25 [id number] 00:00:00* Test Item Value Reference Range Interpretation Comme [facility] VITAMIN D, 25 OH (test code = 4958) 38 NG/ML Topher BrownCBC W/AUTO [id number] 00:00:00* Test Item Value Reference Range Interpretation Comme nts WBC (test code = 1001) 7.6 K/UL RBC (test code = 1002) 5.29 M/UL HEMOGLOBIN (test code = 1003) 14.3 G/DL HEMATOCRIT (test code = 1004) 42.5 % MCV (test code = 1005) 80.3 fL MCH (test code = 1006) 27.0 PG MCHC (test code = 1007) 33.6 G/DL RDW (test code = 1038) 15.3 % NEUTROPHILS (test code = 1008) 46.6 % LYMPHOCYTES (test code = 1010) 43.6 % MONOCYTES (test code = 1011) 6.3 % EOSINOPHILS (test code = 1012) 3.0 % BASOPHILS (test code = 1013) 0.5 % PLATELET COUNT (test code = 1015) 383 K/UL Topher BrownLIPID [id number] 00:00:00* Test Item Value Reference Range Interpretation Comme nts CHOLESTEROL (test code = 2210) 212 MG/DL TRIGLYCERIDES (test code = 2232) 213 MG/DL HDL CHOLESTEROL (test code = 2220) 34 MG/DL CALC LDL CHOL (test code = 2237) 135 MG/DL RISK RATIO LDL/HDL (test cod e = 2238) 3.98 RATIO Topher BrownHEMOGLOBIN [id number] 00:00:00* Test Item Value Reference Range Interpretation Comme [facility] HEMOGLOBIN A1c (test code = 68264) 6.4 % Topher BrownCOMPREHENSIVE METABOLIC [id number] 00:00:00* Test Item Value Reference Range Interpretation Comme nts GLUCOSE (test code = 2217) 95 MG/DL BUN (test code = 2208) 8 MG/DL CREATININE (test code = 2214) 0.77 MG/DL eGFR AMER. (test cod e = 70412) 95 ML/MIN/1.73 eGFR NON- AMER. (test code = 01854) 82 ML/MIN/1.73 CALC BUN/CREAT (test code = 2235) 10 RATIO SODIUM (test code = 2231) 146 MEQ/L POTASSIUM (test code = 2228) 3.7 MEQ/L CHLORIDE (test code = 2215) 107 MEQ/L CARBON DIOXIDE (test code = 2206) 24 MEQ/L CALCIUM (test code = 2209) 9.6 MG/DL PROTEIN, TOTAL (test code = 2229) 7.7 G/DL ALBUMIN (test code = 2201) 4.9 G/DL CALC GLOBULIN (test code = 2240) 2.8 G/DL CALC A/G RATIO (test code = 2234) 1.8 RATIO BILIRUBIN, TOTAL (test code = 2207) 0.3 MG/DL ALKALINE PHOSPHATASE (test code = 4) 100 U/L AST (test code = 221) 9 U/L ALT (test code = 2219) 5 U/L Topher [id number] 00:00:00* Test Item Value Reference Range Interpretation Comme [facility] TSH, THIRD GENERATION (test code = 2821) 1.930 UIU/ML Topher BrownVITAMIN D, 25 [id number] 00:00:00* Test Item Value Reference Range Interpretation Comme [facility] VITAMIN D, 25 OH (test code = 4958) 38 NG/ML Topher BrownCBC W/AUTO [id number] 00:00:00* Test Item Value Reference Range Interpretation Comme nts WBC (test code = 1001) 7.6 K/UL RBC (test code = 1002) 5.29 M/UL HEMOGLOBIN (test code = 1003) 14.3 G/DL HEMATOCRIT (test code = 1004) 42.5 % MCV (test code = 1005) 80.3 fL MCH (test code = 1006) 27.0 PG MCHC (test code = 1007) 33.6 G/DL RDW (test code = 1038) 15.3 % NEUTROPHILS (test code = 1008) 46.6 % LYMPHOCYTES (test code = 1010) 43.6 % MONOCYTES (test code = 1011) 6.3 % EOSINOPHILS (test code = 1012) 3.0 % BASOPHILS (test code = 1013) 0.5 % PLATELET COUNT (test code = 1015) 383 K/UL Topher NewmanID [id number] 00:00:00* Test Item Value Reference Range Interpretation Comme nts CHOLESTEROL (test code = 2210) 212 MG/DL TRIGLYCERIDES (test code = 2232) 213 MG/DL HDL CHOLESTEROL (test code = 2220) 34 MG/DL CALC LDL CHOL (test code = 2237) 135 MG/DL RISK RATIO LDL/HDL (test cod e = 2238) 3.98 RATIO Topher BrownHEMOGLOBIN [id number] 00:00:00* Test Item Value Reference Range Interpretation Comme [facility] HEMOGLOBIN A1c (test code = 95803) 6.4 % Topher BrownGC AND CHLAMYDIA AMPLIFIED, [id number] 00:00:00* Test Item Value Reference Range Interpretation Comme nts GONORRHEA, TMA (test code = 36907) NEGATIVE CHLAMYDIA, TMA (test code = 28754) NEGATIVE Topher BrownVAGINAL PATHOGENS DNA [id number] 00:00:00* Test Item Value Reference Range Interpretation Comme [facility] ASHLEIGH SPECIES (test code = 98897) NEGATIVE G. VAGINALIS (test code = 35294) POSITIVE T. VAGINALIS (test code = 03676) NEGATIVE Topher BrownACUTE HEPATITIS [id number] 00:00:00* Test Item Value Reference Range Interpretation Comme nts HEPATITIS A IgM (test code = 83636) NON-REACTIVE HEPATITIS B CORE IgM (test c ode = 4644) NON-REACTIVE HEPATITIS B SURF AG (test co de = 2739) NON-REACTIVE HEPATITIS C ANTIBODY (test c ode = 4675) NON-REACTIVE HCV INDEX (test code = 20253) 0.11 INTERPRETATION HEPATITIS A: (test code = 2552) (NOTE) INTERPRETATION HEPATITIS B: (test code = 27791) (NOTE) INTERPRETATION HEPATITIS C: (test code = 65210) (NOTE) Topher BrownPAP TEST, THINPREP, [id number] 00:00:00* Test Item Value Reference Range Interpretation Comme nts SOURCE: (test code = 8001) Cervical/Endocervical SLIDES: (test code = 8011) 1 LMP: (test code = 8021) SPECIMEN ADEQUACY: (test code = 49485) (NOTE) INTERPRETATION: (test code = 55467) NILM/NO EPITH. 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: (test code = 8101) ELISHA Mijares(ASCP) LOCATION: (test code = 40104) (NOTE) CPT: (test code = 8140) (NOTE) Topher BrownHIV AB/AG COMBO RFLX [id number] 00:00:00* Test Item Value Reference Range Interpretation Comme nts HIV 1/2 4TH GEN, RFLX CONF ( test code = 3514) NON-REACTIVE Topher Cam [id number] 00:00:00* Test Item Value Reference Range Interpretation Comme nts RPR RESULT (test code = 3501) NON-REACTIVE RPR TITER (test code = 3500) NOT INDIC. TITER VAGINAL PATHOGENS DNA [id number] 00:00:00* Test Item Value Reference Range Interpretation Comme nts ASHLEIGH SPECIES (test code = 27157) NEGATIVE G. VAGINALIS (test code = 24722) POSITIVE T. VAGINALIS (test code = 86190) NEGATIVE GC AND CHLAMYDIA AMPLIFIED, [id number] 00:00:00* Test Item Value Reference Range Interpretation Comme nts GONORRHEA, TMA (test code = 03518) NEGATIVE CHLAMYDIA, TMA (test code = 51819) NEGATIVE ACUTE HEPATITIS [id number] 00:00:00* Test Item Value Reference Range Interpretation Comme nts HEPATITIS A IgM (test code = 44132) NON-REACTIVE HEPATITIS B CORE IgM (test c ode = 4644) NON-REACTIVE HEPATITIS B SURF AG (test co de = 2739) NON-REACTIVE HEPATITIS C ANTIBODY (test c ode = 4675) NON-REACTIVE HCV INDEX (test code = 97819) 0.11 INTERPRETATION HEPATITIS A: (test code = 2552) (NOTE) INTERPRETATION HEPATITIS B: (test code = 43894) (NOTE) INTERPRETATION HEPATITIS C: (test code = 55253) (NOTE) PAP TEST, THINPREP, [id number] 00:00:00* Test Item Value Reference Range Interpretation Comme nts SOURCE: (test code = 8001) Cervical/Endocervical SLIDES: (test code = 8011) 1 LMP: (test code = 8021) SPECIMEN ADEQUACY: (test code = 93039) (NOTE) INTERPRETATION: (test code = 30289) NILM/NO EPITH. 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: (test code = 8101) ELISHA Mijares(ASCP) LOCATION: (test code = 18718) (NOTE) CPT: (test code = 8140) (NOTE) HIV AB/AG COMBO RFLX [id number] 00:00:00* Test Item Value Reference Range Interpretation Comme nts HIV 1/2 4TH GEN, RFLX CONF ( test code = 3514) NON-REACTIVE HPV HIGH RISK WITH GENOTYPE, [id number] 00:00:00* Test Item Value Reference Range Interpretation Comme nts HPV HIGH RISK INTERP (test c ode = 78061) NEGATIVE HPV 16 (test code = 40409) NEGATIVE HPV 18 (test code = 93368) NEGATIVE HPV, HR, OTHER GENOTYPES (te st code = 93862) NEGATIVE [id number] 00:00:00* Test Item Value Reference Range Interpretation Comme nts RPR RESULT (test code = 3501) NON-REACTIVE RPR TITER (test code = 3500) NOT INDIC. TITER VAGINAL PATHOGENS DNA [id number] 00:00:00* Test Item Value Reference Range Interpretation Comme nts ASHLEIGH SPECIES (test code = 53741) NEGATIVE G. VAGINALIS (test code = 23279) POSITIVE T. VAGINALIS (test code = 66845) NEGATIVE GC AND CHLAMYDIA AMPLIFIED, [id number] 00:00:00* Test Item Value Reference Range Interpretation Comme nts GONORRHEA, TMA (test code = 27898) NEGATIVE CHLAMYDIA, TMA (test code = 75636) NEGATIVE PAP TEST, THINPREP, [id number] 00:00:00* Test Item Value Reference Range Interpretation Comme nts SOURCE: (test code = 8001) Cervical/Endocervical SLIDES: (test code = 8011) 1 LMP: (test code = 8021) SPECIMEN ADEQUACY: (test code = 91944) (NOTE) INTERPRETATION: (test code = 04356) NILM/NO EPITH. 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: (test code = 8101) ELISHA Mijares(ASCP) LOCATION: (test code = 59145) (NOTE) CPT: (test code = 8140) (NOTE) ACUTE HEPATITIS [id number] 00:00:00* Test Item Value Reference Range Interpretation Comme nts HEPATITIS A IgM (test code = 94849) NON-REACTIVE HEPATITIS B CORE IgM (test c ode = 4644) NON-REACTIVE HEPATITIS B SURF AG (test co de = 2739) NON-REACTIVE HEPATITIS C ANTIBODY (test c ode = 4675) NON-REACTIVE HCV INDEX (test code = 27131) 0.11 INTERPRETATION HEPATITIS A: (test code = 2552) (NOTE) INTERPRETATION HEPATITIS B: (test code = 41796) (NOTE) INTERPRETATION HEPATITIS C: (test code = 60013) (NOTE) HIV AB/AG COMBO RFLX [id number] 00:00:00* Test Item Value Reference Range Interpretation Comme nts HIV 1/2 4TH GEN, RFLX CONF ( test code = 3514) NON-REACTIVE HPV HIGH RISK WITH GENOTYPE, [id number] 00:00:00* Test Item Value Reference Range Interpretation Comme nts HPV HIGH RISK INTERP (test c ode = 08705) NEGATIVE HPV 16 (test code = 26715) NEGATIVE HPV 18 (test code = 90026) NEGATIVE HPV, HR, OTHER GENOTYPES (te st code = 87202) NEGATIVE [id number] 00:00:00* Test Item Value Reference Range Interpretation Comme nts RPR RESULT (test code = 3501) NON-REACTIVE RPR TITER (test code = 3500) NOT INDIC. TITER GC AND CHLAMYDIA AMPLIFIED, [id number] 00:00:00* Test Item Value Reference Range Interpretation Comme nts GONORRHEA, TMA (test code = 30945) NEGATIVE CHLAMYDIA, TMA (test code = 59779) NEGATIVE VAGINAL PATHOGENS DNA [id number] 00:00:00* Test Item Value Reference Range Interpretation Comme nts ASHLEIGH SPECIES (test code = 98306) NEGATIVE G. VAGINALIS (test code = 68767) POSITIVE T. VAGINALIS (test code = 66903) NEGATIVE PAP TEST, THINPREP, [id number] 00:00:00* Test Item Value Reference Range Interpretation Comme nts SOURCE: (test code = 8001) Cervical/Endocervical SLIDES: (test code = 8011) 1 LMP: (test code = 8021) SPECIMEN ADEQUACY: (test code = 08066) (NOTE) INTERPRETATION: (test code = 39310) NILM/NO EPITH. 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: (test code = 8101) ELISHA Mijares(ASCP) LOCATION: (test code = 97765) (NOTE) CPT: (test code = 8140) (NOTE) ACUTE HEPATITIS [id number] 00:00:00* Test Item Value Reference Range Interpretation Comme nts HEPATITIS A IgM (test code = 54933) NON-REACTIVE HEPATITIS B CORE IgM (test c ode = 4644) NON-REACTIVE HEPATITIS B SURF AG (test co de = 2739) NON-REACTIVE HEPATITIS C ANTIBODY (test c ode = 4675) NON-REACTIVE HCV INDEX (test code = 53155) 0.11 INTERPRETATION HEPATITIS A: (test code = 2552) (NOTE) INTERPRETATION HEPATITIS B: (test code = 42510) (NOTE) INTERPRETATION HEPATITIS C: (test code = 06386) (NOTE) HIV AB/AG COMBO RFLX [id number] 00:00:00* Test Item Value Reference Range Interpretation Comme [facility] HIV 1/2 4TH GEN, RFLX CONF ( test code = 3514) NON-REACTIVE HPV HIGH RISK WITH GENOTYPE, [id number] 00:00:00* Test Item Value Reference Range Interpretation Comme [facility] HPV HIGH RISK INTERP (test c ode = 03876) NEGATIVE HPV 16 (test code = 45250) NEGATIVE HPV 18 (test code = 50977) NEGATIVE HPV, HR, OTHER GENOTYPES (te st code = 70329) NEGATIVE [id number] 00:00:00* Test Item Value Reference Range Interpretation Comme nts RPR RESULT (test code = 3501) NON-REACTIVE RPR TITER (test code = 3500) NOT INDIC. TITER GC AND CHLAMYDIA AMPLIFIED, [id number] 00:00:00* Test Item Value Reference Range Interpretation Comme nts GONORRHEA, TMA (test code = 11609) NEGATIVE CHLAMYDIA, TMA (test code = 80147) NEGATIVE VAGINAL PATHOGENS DNA [id number] 00:00:00* Test Item Value Reference Range Interpretation Comme nts ASHLEIGH SPECIES (test code = 88970) NEGATIVE G. VAGINALIS (test code = 33407) POSITIVE T. VAGINALIS (test code = 57626) NEGATIVE PAP TEST, THINPREP, [id number] 00:00:00* Test Item Value Reference Range Interpretation Comme nts SOURCE: (test code = 8001) Cervical/Endocervical SLIDES: (test code = 8011) 1 LMP: (test code = 8021) SPECIMEN ADEQUACY: (test code = 71342) (NOTE) INTERPRETATION: (test code = 79909) NILM/NO EPITH. 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: (test code = 8101) ELISHA Mijares(ASCP) LOCATION: (test code = 16239) (NOTE) CPT: (test code = 8140) (NOTE) ACUTE HEPATITIS [id number] 00:00:00* Test Item Value Reference Range Interpretation Comme nts HEPATITIS A IgM (test code = 52667) NON-REACTIVE HEPATITIS B CORE IgM (test c ode = 4644) NON-REACTIVE HEPATITIS B SURF AG (test co de = 2739) NON-REACTIVE HEPATITIS C ANTIBODY (test c ode = 4675) NON-REACTIVE HCV INDEX (test code = 74431) 0.11 INTERPRETATION HEPATITIS A: (test code = 2552) (NOTE) INTERPRETATION HEPATITIS B: (test code = 72045) (NOTE) INTERPRETATION HEPATITIS C: (test code = 20830) (NOTE) HPV HIGH RISK WITH GENOTYPE, [id number] 00:00:00* Test Item Value Reference Range Interpretation Comme nts HPV HIGH RISK INTERP (test c ode = 15418) NEGATIVE HPV 16 (test code = 84986) NEGATIVE HPV 18 (test code = 52647) NEGATIVE HPV, HR, OTHER GENOTYPES (te st code = 88092) NEGATIVE HIV AB/AG COMBO RFLX [id number] 00:00:00* Test Item Value Reference Range Interpretation Comme nts HIV 1/2 4TH GEN, RFLX CONF ( test code = 3514) NON-REACTIVE [id number] 00:00:00* Test Item Value Reference Range Interpretation Comme nts RPR RESULT (test code = 3501) NON-REACTIVE RPR TITER (test code = 3500) NOT INDIC. TITER GC AND CHLAMYDIA AMPLIFIED, [id number] 00:00:00* Test Item Value Reference Range Interpretation Comme nts GONORRHEA, TMA (test code = 14693) NEGATIVE CHLAMYDIA, TMA (test code = 69380) NEGATIVE GC AND CHLAMYDIA AMPLIFIED, [id number] 00:00:00* Test Item Value Reference Range Interpretation Comme nts GONORRHEA, TMA (test code = 25726) NEGATIVE CHLAMYDIA, TMA (test code = 20478) NEGATIVE VAGINAL PATHOGENS DNA [id number] 00:00:00* Test Item Value Reference Range Interpretation Comme nts ASHLEIGH SPECIES (test code = 20909) NEGATIVE G. VAGINALIS (test code = 52440) POSITIVE T. VAGINALIS (test code = 48691) NEGATIVE VAGINAL PATHOGENS DNA [id number] 00:00:00* Test Item Value Reference Range Interpretation Comme nts ASHLEIGH SPECIES (test code = ) NEGATIVE G. VAGINALIS (test code = 45376) POSITIVE T. VAGINALIS (test code = 81981) NEGATIVE PAP TEST, THINPREP, [id number] 00:00:00* Test Item Value Reference Range Interpretation Comme nts SOURCE: (test code = 8001) Cervical/Endocervical SLIDES: (test code = 8011) 1 LMP: (test code = 8021) SPECIMEN ADEQUACY: (test code = 20473) (NOTE) INTERPRETATION: (test code = 29591) NILM/NO EPITH. 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: (test code = 8101) ELISHA Mijares(ASCP) LOCATION: (test code = 48225) (NOTE) CPT: (test code = 8140) (NOTE) ACUTE HEPATITIS [id number] 00:00:00* Test Item Value Reference Range Interpretation Comme nts HEPATITIS A IgM (test code = 85238) NON-REACTIVE HEPATITIS B CORE IgM (test c ode = 4644) NON-REACTIVE HEPATITIS B SURF AG (test co de = 2739) NON-REACTIVE HEPATITIS C ANTIBODY (test c ode = 4675) NON-REACTIVE HCV INDEX (test code = 22552) 0.11 INTERPRETATION HEPATITIS A: (test code = 2552) (NOTE) INTERPRETATION HEPATITIS B: (test code = 32171) (NOTE) INTERPRETATION HEPATITIS C: (test code = 01729) (NOTE) HPV HIGH RISK WITH GENOTYPE, [id number] 00:00:00* Test Item Value Reference Range Interpretation Comme nts HPV HIGH RISK INTERP (test c ode = 08632) NEGATIVE HPV 16 (test code = 67994) NEGATIVE HPV 18 (test code = 47716) NEGATIVE HPV, HR, OTHER GENOTYPES (te st code = 12389) NEGATIVE HIV AB/AG COMBO RFLX [id number] 00:00:00* Test Item Value Reference Range Interpretation Comme nts HIV 1/2 4TH GEN, RFLX CONF ( test code = 3514) NON-REACTIVE [id number] 00:00:00* Test Item Value Reference Range Interpretation Comme nts RPR RESULT (test code = 3501) NON-REACTIVE RPR TITER (test code = 3500) NOT INDIC. TITER PAP TEST, THINPREP, [id number] 00:00:00* Test Item Value Reference Range Interpretation Comme nts SOURCE: (test code = 8001) Cervical/Endocervical SLIDES: (test code = 8011) 1 LMP: (test code = 8021) SPECIMEN ADEQUACY: (test code = 54239) (NOTE) INTERPRETATION: (test code = 52023) NILM/NO EPITH. 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: (test code = 8101) ELISHA Mijares(ASCP) LOCATION: (test code = 42613) (NOTE) CPT: (test code = 8140) (NOTE) ACUTE HEPATITIS [id number] 00:00:00* Test Item Value Reference Range Interpretation Comme nts HEPATITIS A IgM (test code = 28504) NON-REACTIVE HEPATITIS B CORE IgM (test c ode = 4644) NON-REACTIVE HEPATITIS B SURF AG (test co de = 2739) NON-REACTIVE HEPATITIS C ANTIBODY (test c ode = 4675) NON-REACTIVE HCV INDEX (test code = 79365) 0.11 INTERPRETATION HEPATITIS A: (test code = 2552) (NOTE) INTERPRETATION HEPATITIS B: (test code = 02725) (NOTE) INTERPRETATION HEPATITIS C: (test code = 38455) (NOTE) HPV HIGH RISK WITH GENOTYPE, [id number] 00:00:00* Test Item Value Reference Range Interpretation Comme nts HPV HIGH RISK INTERP (test c ode = 04039) NEGATIVE HPV 16 (test code = 91444) NEGATIVE HPV 18 (test code = 12911) NEGATIVE HPV, HR, OTHER GENOTYPES (te st code = 93644) NEGATIVE HIV AB/AG COMBO RFLX [id number] 00:00:00* Test Item Value Reference Range Interpretation Comme nts HIV 1/2 4TH GEN, RFLX CONF ( test code = 3514) NON-REACTIVE [id number] 00:00:00* Test Item Value Reference Range Interpretation Comme nts RPR RESULT (test code = 3501) NON-REACTIVE RPR TITER (test code = 3500) NOT INDIC. TITER GC AND CHLAMYDIA AMPLIFIED, [id number] 00:00:00* Test Item Value Reference Range Interpretation Comme nts GONORRHEA, TMA (test code = 81175) NEGATIVE CHLAMYDIA, TMA (test code = 42299) NEGATIVE VAGINAL PATHOGENS DNA [id number] 00:00:00* Test Item Value Reference Range Interpretation Comme nts ASHLEIGH SPECIES (test code = 14617) NEGATIVE G. VAGINALIS (test code = 07399) POSITIVE T. VAGINALIS (test code = 58181) NEGATIVE PAP TEST, THINPREP, [id number] 00:00:00* Test Item Value Reference Range Interpretation Comme nts SOURCE: (test code = 8001) Cervical/Endocervical SLIDES: (test code = 8011) 1 LMP: (test code = 8021) SPECIMEN ADEQUACY: (test code = 56847) (NOTE) INTERPRETATION: (test code = 53677) NILM/NO EPITH. 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: (test code = 8101) ELISHA Mijares(ASCP) LOCATION: (test code = 85683) (NOTE) CPT: (test code = 8140) (NOTE) ACUTE HEPATITIS [id number] 00:00:00* Test Item Value Reference Range Interpretation Comme nts HEPATITIS A IgM (test code = 86099) NON-REACTIVE HEPATITIS B CORE IgM (test c ode = 4644) NON-REACTIVE HEPATITIS B SURF AG (test co de = 8589) NON-REACTIVE HEPATITIS C ANTIBODY (test c ode = 4675) NON-REACTIVE HCV INDEX (test code = 94944) 0.11 INTERPRETATION HEPATITIS A: (test code = 2552) (NOTE) INTERPRETATION HEPATITIS B: (test code = 67455) (NOTE) INTERPRETATION HEPATITIS C: (test code = 80885) (NOTE) HPV HIGH RISK WITH GENOTYPE, [id number] 00:00:00* Test Item Value Reference Range Interpretation Comme [facility] HPV HIGH RISK INTERP (test c ode = 06006) NEGATIVE HPV 16 (test code = 67247) NEGATIVE HPV 18 (test code = 97094) NEGATIVE HPV, HR, OTHER GENOTYPES (te st code = 57591) NEGATIVE HIV AB/AG COMBO RFLX [id number] 00:00:00* Test Item Value Reference Range Interpretation Comme nts HIV 1/2 4TH GEN, RFLX CONF ( test code = 3514) NON-REACTIVE [id number] 00:00:00* Test Item Value Reference Range Interpretation Comme nts RPR RESULT (test code = 3501) NON-REACTIVE RPR TITER (test code = 3500) NOT INDIC. TITER GC AND CHLAMYDIA AMPLIFIED, [id number] 00:00:00* Test Item Value Reference Range Interpretation Comme nts GONORRHEA, TMA (test code = 57267) NEGATIVE CHLAMYDIA, TMA (test code = 03752) NEGATIVE VAGINAL PATHOGENS DNA [id number] 00:00:00* Test Item Value Reference Range Interpretation Comme nts ASHLEIGH SPECIES (test code = 79030) NEGATIVE G. VAGINALIS (test code = 12557) POSITIVE T. VAGINALIS (test code = 38642) NEGATIVE PAP TEST, THINPREP, [id number] 00:00:00* Test Item Value Reference Range Interpretation Comme [facility] SOURCE: (test code = 8001) Cervical/Endocervical SLIDES: (test code = 8011) 1 LMP: (test code = 8021) SPECIMEN ADEQUACY: (test code = 53908) (NOTE) INTERPRETATION: (test code = 34034) NILM/NO EPITH. 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: (test code = 8101) ELISHA Mijares(ASCP) LOCATION: (test code = 72090) (NOTE) CPT: (test code = 8140) (NOTE) ACUTE HEPATITIS [id number] 00:00:00* Test Item Value Reference Range Interpretation Comme nts HEPATITIS A IgM (test code = 21139) NON-REACTIVE HEPATITIS B CORE IgM (test c ode = 4644) NON-REACTIVE HEPATITIS B SURF AG (test co de = 8177) NON-REACTIVE HEPATITIS C ANTIBODY (test c ode = 4679) NON-REACTIVE HCV INDEX (test code = 36167) 0.11 INTERPRETATION HEPATITIS A: (test code = 2552) (NOTE) INTERPRETATION HEPATITIS B: (test code = 69476) (NOTE) INTERPRETATION HEPATITIS C: (test code = 30959) (NOTE) HPV HIGH RISK WITH GENOTYPE, [id number] 00:00:00* Test Item Value Reference Range Interpretation Comme nts HPV HIGH RISK INTERP (test c ode = 06131) NEGATIVE HPV 16 (test code = 17936) NEGATIVE HPV 18 (test code = 33046) NEGATIVE HPV, HR, OTHER GENOTYPES (te st code = 75353) NEGATIVE HIV AB/AG COMBO RFLX [id number] 00:00:00* Test Item Value Reference Range Interpretation Comme nts HIV 1/2 4TH GEN, RFLX CONF ( test code = 3514) NON-REACTIVE HPV HIGH RISK WITH GENOTYPE, [id number] 00:00:00* Test Item Value Reference Range Interpretation Comme nts HPV HIGH RISK INTERP (test c ode = 56244) NEGATIVE HPV 16 (test code = 10859) NEGATIVE HPV 18 (test code = 77531) NEGATIVE HPV, HR, OTHER GENOTYPES (te st code = 81838) NEGATIVE Topher Tutu [id number] 00:00:00* Test Item Value Reference Range Interpretation Comme nts RPR RESULT (test code = 3501) NON-REACTIVE RPR TITER (test code = 3500) NOT INDIC. TITER Topher BrownVAGINAL PATHOGENS DNA [id number] 00:00:00* Test Item Value Reference Range Interpretation Comme nts ASHLEIGH SPECIES (test code = 99703) NEGATIVE G. VAGINALIS (test code = 65333) POSITIVE T. VAGINALIS (test code = 40314) NEGATIVE Topher BrownGC AND CHLAMYDIA AMPLIFIED, [id number] 00:00:00* Test Item Value Reference Range Interpretation Comme nts GONORRHEA, TMA (test code = 20822) NEGATIVE CHLAMYDIA, TMA (test code = 89168) NEGATIVE Topher BrownVAGINAL PATHOGENS DNA [id number] 00:00:00* Test Item Value Reference Range Interpretation Comme nts ASHLEIGH SPECIES (test code = 69602) NEGATIVE G. VAGINALIS (test code = 59887) POSITIVE T. VAGINALIS (test code = 82128) NEGATIVE Topher BrownACUTE HEPATITIS [id number] 00:00:00* Test Item Value Reference Range Interpretation Comme nts HEPATITIS A IgM (test code = 81389) NON-REACTIVE HEPATITIS B CORE IgM (test c ode = 4644) NON-REACTIVE HEPATITIS B SURF AG (test co de = 2739) NON-REACTIVE HEPATITIS C ANTIBODY (test c ode = 4675) NON-REACTIVE HCV INDEX (test code = 13237) 0.11 INTERPRETATION HEPATITIS A: (test code = 2552) (NOTE) INTERPRETATION HEPATITIS B: (test code = 59431) (NOTE) INTERPRETATION HEPATITIS C: (test code = 02742) (NOTE) Topher BrownPAP TEST, THINPREP, [id number] 00:00:00* Test Item Value Reference Range Interpretation Comme nts SOURCE: (test code = 8001) Cervical/Endocervical SLIDES: (test code = 8011) 1 LMP: (test code = 8021) SPECIMEN ADEQUACY: (test code = 72296) (NOTE) INTERPRETATION: (test code = 03400) NILM/NO EPITH. 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: (test code = 8101) ELISHA Mijares(ASCP) LOCATION: (test code = 91625) (NOTE) CPT: (test code = 8140) (NOTE) Topher BrownGC AND CHLAMYDIA AMPLIFIED, [id number] 00:00:00* Test Item Value Reference Range Interpretation Comme nts GONORRHEA, TMA (test code = 37587) NEGATIVE CHLAMYDIA, TMA (test code = 60490) NEGATIVE Topher BrownHIV AB/AG COMBO RFLX [id number] 00:00:00* Test Item Value Reference Range Interpretation Comme nts HIV 1/2 4TH GEN, RFLX CONF ( test code = 3514) NON-REACTIVE Topher BrownHPV HIGH RISK WITH GENOTYPE, [id number] 00:00:00* Test Item Value Reference Range Interpretation Comme nts HPV HIGH RISK INTERP (test c ode = 65242) NEGATIVE HPV 16 (test code = 74069) NEGATIVE HPV 18 (test code = 76934) NEGATIVE HPV, HR, OTHER GENOTYPES (te st code = 11765) NEGATIVE Topher [id number] 00:00:00* Test Item Value Reference Range Interpretation Comme nts RPR RESULT (test code = 3501) NON-REACTIVE RPR TITER (test code = 3500) NOT INDIC. TITER Topher BrownGC AND CHLAMYDIA AMPLIFIED, [id number] 00:00:00* Test Item Value Reference Range Interpretation Comme nts GONORRHEA, TMA (test code = 98910) NEGATIVE CHLAMYDIA, TMA (test code = 46939) NEGATIVE Topher BrownVAGINAL PATHOGENS DNA [id number] 00:00:00* Test Item Value Reference Range Interpretation Comme nts ASHLEIGH SPECIES (test code = 39001) NEGATIVE G. VAGINALIS (test code = 05373) POSITIVE T. VAGINALIS (test code = 86204) NEGATIVE Topher BrownPAP TEST, THINPREP, [id number] 00:00:00* Test Item Value Reference Range Interpretation Comme nts SOURCE: (test code = 8001) Cervical/Endocervical SLIDES: (test code = 8011) 1 LMP: (test code = 8021) SPECIMEN ADEQUACY: (test code = 23979) (NOTE) INTERPRETATION: (test code = 51007) NILM/NO EPITH. 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: (test code = 8101) ELISHA Mijares(ASCP) LOCATION: (test code = 86486) (NOTE) CPT: (test code = 8140) (NOTE) Topher BrownACUTE HEPATITIS [id number] 00:00:00* Test Item Value Reference Range Interpretation Comme nts HEPATITIS A IgM (test code = 81787) NON-REACTIVE HEPATITIS B CORE IgM (test c ode = 9444) NON-REACTIVE HEPATITIS B SURF AG (test co de = 5579) NON-REACTIVE HEPATITIS C ANTIBODY (test c ode = 4636) NON-REACTIVE HCV INDEX (test code = 73794) 0.11 INTERPRETATION HEPATITIS A: (test code = 2552) (NOTE) INTERPRETATION HEPATITIS B: (test code = 33358) (NOTE) INTERPRETATION HEPATITIS C: (test code = 98262) (NOTE) Topher BrownHIV AB/AG COMBO RFLX [id number] 00:00:00* Test Item Value Reference Range Interpretation Comme nts HIV 1/2 4TH GEN, RFLX CONF ( test code = 3514) NON-REACTIVE Topher BrownHPV HIGH RISK WITH GENOTYPE, [id number] 00:00:00* Test Item Value Reference Range Interpretation Comme nts HPV HIGH RISK INTERP (test c ode = 41188) NEGATIVE HPV 16 (test code = 58698) NEGATIVE HPV 18 (test code = 64405) NEGATIVE HPV, HR, OTHER GENOTYPES (te st code = 82225) NEGATIVE Topher [id number] 00:00:00* Test Item Value Reference Range Interpretation Comme nts RPR RESULT (test code = 3501) NON-REACTIVE RPR TITER (test code = 3500) NOT INDIC. TITER Topher BrownPAP TEST, THINPREP, [id number] 00:00:00* Test Item Value Reference Range Interpretation Comme nts SOURCE: (test code = 8001) Cervical/Endocervical SLIDES: (test code = 8011) 1 LMP: (test code = 8021) SPECIMEN ADEQUACY: (test code = 56184) (NOTE) INTERPRETATION: (test code = 33472) NILM/NO EPITH. 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: (test code = 8101) ELISHA Mijares(ASCP) LOCATION: (test code = 14886) (NOTE) CPT: (test code = 8140) (NOTE) Topher BrownACUTE HEPATITIS [id number] 00:00:00* Test Item Value Reference Range Interpretation Comme nts HEPATITIS A IgM (test code = 75519) NON-REACTIVE HEPATITIS B CORE IgM (test c ode = 4644) NON-REACTIVE HEPATITIS B SURF AG (test co de = 2739) NON-REACTIVE HEPATITIS C ANTIBODY (test c ode = 4675) NON-REACTIVE HCV INDEX (test code = 98876) 0.11 INTERPRETATION HEPATITIS A: (test code = 2552) (NOTE) INTERPRETATION HEPATITIS B: (test code = 14640) (NOTE) INTERPRETATION HEPATITIS C: (test code = 16020) (NOTE) Topher BrownGC AND CHLAMYDIA AMPLIFIED, [id number] 00:00:00* Test Item Value Reference Range Interpretation Comme nts GONORRHEA, TMA (test code = 93850) NEGATIVE CHLAMYDIA, TMA (test code = 91074) NEGATIVE Topher BrownVAGINAL PATHOGENS DNA [id number] 00:00:00* Test Item Value Reference Range Interpretation Comme nts ASHLEIGH SPECIES (test code = 92795) NEGATIVE G. VAGINALIS (test code = 87078) POSITIVE T. VAGINALIS (test code = 01782) NEGATIVE Topher BrownACUTE HEPATITIS [id number] 00:00:00* Test Item Value Reference Range Interpretation Comme nts HEPATITIS A IgM (test code = 33408) NON-REACTIVE HEPATITIS B CORE IgM (test c ode = 4644) NON-REACTIVE HEPATITIS B SURF AG (test co de = 2739) NON-REACTIVE HEPATITIS C ANTIBODY (test c ode = 4675) NON-REACTIVE HCV INDEX (test code = 47788) 0.11 INTERPRETATION HEPATITIS A: (test code = 2552) (NOTE) INTERPRETATION HEPATITIS B: (test code = 84635) (NOTE) INTERPRETATION HEPATITIS C: (test code = 60730) (NOTE) Topher BrownPAP TEST, THINPREP, [id number] 00:00:00* Test Item Value Reference Range Interpretation Comme nts SOURCE: (test code = 8001) Cervical/Endocervical SLIDES: (test code = 8011) 1 LMP: (test code = 8021) SPECIMEN ADEQUACY: (test code = 22999) (NOTE) INTERPRETATION: (test code = 25726) NILM/NO EPITH. 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: (test code = 8101) ELISHA Mijares(ASCP) LOCATION: (test code = 05629) (NOTE) CPT: (test code = 8140) (NOTE) Topher BrownHIV AB/AG COMBO RFLX [id number] 00:00:00* Test Item Value Reference Range Interpretation Comme nts HIV 1/2 4TH GEN, RFLX CONF ( test code = 3514) NON-REACTIVE Topher BrownHPV HIGH RISK WITH GENOTYPE, [id number] 00:00:00* Test Item Value Reference Range Interpretation Comme nts HPV HIGH RISK INTERP (test c ode = 63067) NEGATIVE HPV 16 (test code = 51185) NEGATIVE HPV 18 (test code = 20592) NEGATIVE HPV, HR, OTHER GENOTYPES (te st code = 59555) NEGATIVE Topher [id number] 00:00:00* Test Item Value Reference Range Interpretation Comme nts RPR RESULT (test code = 3501) NON-REACTIVE RPR TITER (test code = 3500) NOT INDIC. TITER Topher BrownHPV HIGH RISK WITH GENOTYPE, [id number] 00:00:00* Test Item Value Reference Range Interpretation Comme nts HPV HIGH RISK INTERP (test c ode = 77033) NEGATIVE HPV 16 (test code = 43260) NEGATIVE HPV 18 (test code = 31808) NEGATIVE HPV, HR, OTHER GENOTYPES (te st code = 91656) NEGATIVE Topher BrownHIV AB/AG COMBO RFLX [id number] 00:00:00* Test Item Value Reference Range Interpretation Comme nts HIV 1/2 4TH GEN, RFLX CONF ( test code = 3514) NON-REACTIVE Topher Cam [id number] 00:00:00* Test Item Value Reference Range Interpretation Comme nts RPR RESULT (test code = 3501) NON-REACTIVE RPR TITER (test code = 3500) NOT INDIC. TITER Topher BrownGC AND CHLAMYDIA AMPLIFIED, [id number] 00:00:00* Test Item Value Reference Range Interpretation Comme nts GONORRHEA, TMA (test code = 00690) NEGATIVE CHLAMYDIA, TMA (test code = 22089) NEGATIVE Topher BrownVAGINAL PATHOGENS DNA [id number] 00:00:00* Test Item Value Reference Range Interpretation Comme nts ASHLEIGH SPECIES (test code = 10181) NEGATIVE G. VAGINALIS (test code = 71004) POSITIVE T. VAGINALIS (test code = 76032) NEGATIVE Topher BrownPAP TEST, THINPREP, [id number] 00:00:00* Test Item Value Reference Range Interpretation Comme nts SOURCE: (test code = 8001) Cervical/Endocervical SLIDES: (test code = 8011) 1 LMP: (test code = 8021) SPECIMEN ADEQUACY: (test code = 08265) (NOTE) INTERPRETATION: (test code = 52548) NILM/NO EPITH. 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: (test code = 8101) ELISHA Mijares(ASCP) LOCATION: (test code = 17984) (NOTE) CPT: (test code = 8140) (NOTE) Topher BrownACUTE HEPATITIS [id number] 00:00:00* Test Item Value Reference Range Interpretation Comme nts HEPATITIS A IgM (test code = 22857) NON-REACTIVE HEPATITIS B CORE IgM (test c ode = 4644) NON-REACTIVE HEPATITIS B SURF AG (test co de = 2739) NON-REACTIVE HEPATITIS C ANTIBODY (test c ode = 4675) NON-REACTIVE HCV INDEX (test code = 43513) 0.11 INTERPRETATION HEPATITIS A: (test code = 2552) (NOTE) INTERPRETATION HEPATITIS B: (test code = 19918) (NOTE) INTERPRETATION HEPATITIS C: (test code = 47965) (NOTE) Topher BrownHPV HIGH RISK WITH GENOTYPE, [id number] 00:00:00* Test Item Value Reference Range Interpretation Comme nts HPV HIGH RISK INTERP (test c ode = 14979) NEGATIVE HPV 16 (test code = 52587) NEGATIVE HPV 18 (test code = 85116) NEGATIVE HPV, HR, OTHER GENOTYPES (te st code = 87814) NEGATIVE Topher BrownHIV AB/AG COMBO RFLX [id number] 00:00:00* Test Item Value Reference Range Interpretation Comme nts HIV 1/2 4TH GEN, RFLX CONF ( test code = 3514) NON-REACTIVE Topher [id number] 00:00:00* Test Item Value Reference Range Interpretation Comme nts RPR RESULT (test code = 3501) NON-REACTIVE RPR TITER (test code = 3500) NOT INDIC. TITER Topher BrownVAGINAL PATHOGENS DNA [id number] 00:00:00* Test Item Value Reference Range Interpretation Comme nts ASHLEIGH SPECIES (test code = 80830) NEGATIVE G. VAGINALIS (test code = 88021) POSITIVE T. VAGINALIS (test code = 86516) NEGATIVE Tophre BrownGC AND CHLAMYDIA AMPLIFIED, [id number] 00:00:00* Test Item Value Reference Range Interpretation Comme nts GONORRHEA, TMA (test code = 47549) NEGATIVE CHLAMYDIA, TMA (test code = 36108) NEGATIVE Topher BrownACUTE HEPATITIS [id number] 00:00:00* Test Item Value Reference Range Interpretation Comme nts HEPATITIS A IgM (test code = 38800) NON-REACTIVE HEPATITIS B CORE IgM (test c ode = 4644) NON-REACTIVE HEPATITIS B SURF AG (test co de = 2739) NON-REACTIVE HEPATITIS C ANTIBODY (test c ode = 4675) NON-REACTIVE HCV INDEX (test code = 98012) 0.11 INTERPRETATION HEPATITIS A: (test code = 2552) (NOTE) INTERPRETATION HEPATITIS B: (test code = 98924) (NOTE) INTERPRETATION HEPATITIS C: (test code = 60581) (NOTE) Topher BrownPAP TEST, THINPREP, [id number] 00:00:00* Test Item Value Reference Range Interpretation Comme nts SOURCE: (test code = 8001) Cervical/Endocervical SLIDES: (test code = 8011) 1 LMP: (test code = 8021) SPECIMEN ADEQUACY: (test code = 23815) (NOTE) INTERPRETATION: (test code = 39130) NILM/NO EPITH. 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: (test code = 8101) ELISHA Mijares(ASCP) LOCATION: (test code = 05460) (NOTE) CPT: (test code = 8140) (NOTE) Topher BrownHPV HIGH RISK WITH GENOTYPE, [id number] 00:00:00* Test Item Value Reference Range Interpretation Comme nts HPV HIGH RISK INTERP (test c ode = 54806) NEGATIVE HPV 16 (test code = 15604) NEGATIVE HPV 18 (test code = 04171) NEGATIVE HPV, HR, OTHER GENOTYPES (te st code = 97369) NEGATIVE Topher BrownHIV AB/AG COMBO RFLX [id number] 00:00:00* Test Item Value Reference Range Interpretation Comme nts HIV 1/2 4TH GEN, RFLX CONF ( test code = 3514) NON-REACTIVE Topher Cam [id number] 00:00:00* Test Item Value Reference Range Interpretation Comme nts RPR RESULT (test code = 3501) NON-REACTIVE RPR TITER (test code = 3500) NOT INDIC. TITER Topher BrownGC AND CHLAMYDIA AMPLIFIED, [id number] 00:00:00* Test Item Value Reference Range Interpretation Comme nts GONORRHEA, TMA (test code = 91814) NEGATIVE CHLAMYDIA, TMA (test code = 33206) NEGATIVE Topher BrownVAGINAL PATHOGENS DNA [id number] 00:00:00* Test Item Value Reference Range Interpretation Comme nts ASHLEIGH SPECIES (test code = 58155) NEGATIVE G. VAGINALIS (test code = 10604) POSITIVE T. VAGINALIS (test code = 77839) NEGATIVE Topher BrownPAP TEST, THINPREP, [id number] 00:00:00* Test Item Value Reference Range Interpretation Comme nts SOURCE: (test code = 8001) Cervical/Endocervical SLIDES: (test code = 8011) 1 LMP: (test code = 8021) SPECIMEN ADEQUACY: (test code = 14093) (NOTE) INTERPRETATION: (test code = 53657) NILM/NO EPITH. 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: (test code = 8101) ELISHA Mijares(ASCP) LOCATION: (test code = 45718) (NOTE) CPT: (test code = 8140) (NOTE) Topher BrownACUTE HEPATITIS [id number] 00:00:00* Test Item Value Reference Range Interpretation Comme nts HEPATITIS A IgM (test code = 94391) NON-REACTIVE HEPATITIS B CORE IgM (test c ode = 4644) NON-REACTIVE HEPATITIS B SURF AG (test co de = 2739) NON-REACTIVE HEPATITIS C ANTIBODY (test c ode = 4675) NON-REACTIVE HCV INDEX (test code = 52208) 0.11 INTERPRETATION HEPATITIS A: (test code = 2552) (NOTE) INTERPRETATION HEPATITIS B: (test code = 66556) (NOTE) INTERPRETATION HEPATITIS C: (test code = 36733) (NOTE) Topher BrownHIV AB/AG COMBO RFLX [id number] 00:00:00* Test Item Value Reference Range Interpretation Comme nts HIV 1/2 4TH GEN, RFLX CONF ( test code = 3514) NON-REACTIVE Topher BrownHPV HIGH RISK WITH GENOTYPE, [id number] 00:00:00* Test Item Value Reference Range Interpretation Comme nts HPV HIGH RISK INTERP (test c ode = 30853) NEGATIVE HPV 16 (test code = 31876) NEGATIVE HPV 18 (test code = 01783) NEGATIVE HPV, HR, OTHER GENOTYPES (te st code = 87895) NEGATIVE Topher [id number] 00:00:00* Test Item Value Reference Range Interpretation Comme nts RPR RESULT (test code = 3501) NON-REACTIVE RPR TITER (test code = 3500) NOT INDIC. TITER Topher BrownGC AND CHLAMYDIA AMPLIFIED, [id number] 00:00:00* Test Item Value Reference Range Interpretation Comme nts GONORRHEA, TMA (test code = 39596) NEGATIVE CHLAMYDIA, TMA (test code = 02645) NEGATIVE Topher BrownVAGINAL PATHOGENS DNA [id number] 00:00:00* Test Item Value Reference Range Interpretation Comme [place] ASHLEIGH SPECIES (test code = 27889) NEGATIVE G. VAGINALIS (test code = 93660) POSITIVE T. VAGINALIS (test code = 40585) NEGATIVE Topher BrownPAP TEST, THINPREP, [id number] 00:00:00* Test Item Value Reference Range Interpretation Comme nts SOURCE: (test code = 8001) Cervical/Endocervical SLIDES: (test code = 8011) 1 LMP: (test code = 8021) SPECIMEN ADEQUACY: (test code = 00378) (NOTE) INTERPRETATION: (test code = 64184) NILM/NO EPITH. 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: (test code = 8101) ELISHA Mijares(ASCP) LOCATION: (test code = 59531) (NOTE) CPT: (test code = 8140) (NOTE) Topher BrownACUTE HEPATITIS [id number] 00:00:00* Test Item Value Reference Range Interpretation Comme nts HEPATITIS A IgM (test code = 45271) NON-REACTIVE HEPATITIS B CORE IgM (test c ode = 6944) NON-REACTIVE HEPATITIS B SURF AG (test co de = 6129) NON-REACTIVE HEPATITIS C ANTIBODY (test c ode = 3506) NON-REACTIVE HCV INDEX (test code = 97663) 0.11 INTERPRETATION HEPATITIS A: (test code = 2552) (NOTE) INTERPRETATION HEPATITIS B: (test code = 07078) (NOTE) INTERPRETATION HEPATITIS C: (test code = 73838) (NOTE) Topher BrownHIV AB/AG COMBO RFLX [id number] 00:00:00* Test Item Value Reference Range Interpretation Comme nts HIV 1/2 4TH GEN, RFLX CONF ( test code = 3514) NON-REACTIVE Topher BrownHPV HIGH RISK WITH GENOTYPE, [id number] 00:00:00* Test Item Value Reference Range Interpretation Comme nts HPV HIGH RISK INTERP (test c ode = 83590) NEGATIVE HPV 16 (test code = 59764) NEGATIVE HPV 18 (test code = 69146) NEGATIVE HPV, HR, OTHER GENOTYPES (te st code = 06974) NEGATIVE Topher [id number] 00:00:00* Test Item Value Reference Range Interpretation Comme nts RPR RESULT (test code = 3501) NON-REACTIVE RPR TITER (test code = 3500) NOT INDIC. TITER Topher BrownTHYROID II PROFILE (T3U, T4, T7, TSH)[id number] 00:00:00* Test Item Value Reference Range Interpretation Comme nts T-UPTAKE (test code = 2817) 30.2 % THYROX. BIND. CAPAC. (test c ode = 64239) 1.1 T4 (THYROXINE) (test code = 2819) 6.9 UG/DL CORRECTED T4 (FTI) (test cod e = 2820) 6.3 UG/DL TSH, THIRD GENERATION (test code = 2821) 2.280 UIU/ML Topher BrownCBC W/AUTO [id number] 00:00:00* Test Item Value Reference Range Interpretation Comme nts WBC (test code = 1001) 6.6 K/UL RBC (test code = 1002) 4.70 M/UL HEMOGLOBIN (test code = 1003) 13.0 G/DL HEMATOCRIT (test code = 1004) 38.0 % MCV (test code = 1005) 80.9 fL MCH (test code = 1006) 27.7 PG MCHC (test code = 1007) 34.2 G/DL RDW (test code = 1038) 13.1 % NEUTROPHILS (test code = 1008) 47.0 % LYMPHOCYTES (test code = 1010) 37.7 % MONOCYTES (test code = 1011) 6.8 % EOSINOPHILS (test code = 1012) 7.9 % BASOPHILS (test code = 1013) 0.6 % PLATELET COUNT (test code = 1015) 349 K/UL Topher BrownVITAMIN D, 25 [id number] 00:00:00* Test Item Value Reference Range Interpretation Comme nts VITAMIN D, 25 OH (test code = 4958) 12 NG/ML Topher BrownCBC W/AUTO [id number] 00:00:00* Test Item Value Reference Range Interpretation Comme nts WBC (test code = 1001) 6.6 K/UL RBC (test code = 1002) 4.70 M/UL HEMOGLOBIN (test code = 1003) 13.0 G/DL HEMATOCRIT (test code = 1004) 38.0 % MCV (test code = 1005) 80.9 fL MCH (test code = 1006) 27.7 PG MCHC (test code = 1007) 34.2 G/DL RDW (test code = 1038) 13.1 % NEUTROPHILS (test code = 1008) 47.0 % LYMPHOCYTES (test code = 1010) 37.7 % MONOCYTES (test code = 1011) 6.8 % EOSINOPHILS (test code = 1012) 7.9 % BASOPHILS (test code = 1013) 0.6 % PLATELET COUNT (test code = 1015) 349 K/UL Topher BrownHEMOGLOBIN [id number] 00:00:00* Test Item Value Reference Range Interpretation Comme nts HEMOGLOBIN A1c (test code = 08346) 6.2 % Topher BrownLIPID [id number] 00:00:00* Test Item Value Reference Range Interpretation Comme nts CHOLESTEROL (test code = 2210) 223 MG/DL TRIGLYCERIDES (test code = 2232) 230 MG/DL HDL CHOLESTEROL (test code = 2220) 31 MG/DL CALC LDL CHOL (test code = 2237) 146 MG/DL RISK RATIO LDL/HDL (test cod e = 2238) 4.71 RATIO Topher BrownCOMPREHENSIVE METABOLIC [id number] 00:00:00* Test Item Value Reference Range Interpretation Comme nts GLUCOSE (test code = 2217) 121 MG/DL BUN (test code = 2208) 10 MG/DL CREATININE (test code = 2214) 0.67 MG/DL eGFR AMER. (test cod e = ) 108 ML/MIN/1.73 eGFR NON- AMER. (test code = 92476) 93 ML/MIN/1.73 CALC BUN/CREAT (test code = 2235) 15 RATIO SODIUM (test code = 2231) 143 MEQ/L POTASSIUM (test code = 2228) 3.9 MEQ/L CHLORIDE (test code = 2215) 103 MEQ/L CARBON DIOXIDE (test code = 2206) 28 MEQ/L CALCIUM (test code = 2209) 9.1 MG/DL PROTEIN, TOTAL (test code = 2229) 7.0 G/DL ALBUMIN (test code = 2201) 4.3 G/DL CALC GLOBULIN (test code = 2240) 2.7 G/DL CALC A/G RATIO (test code = 2234) 1.6 RATIO BILIRUBIN, TOTAL (test code = 2207) 0.3 MG/DL ALKALINE PHOSPHATASE (test code = 2204) 113 U/L AST (test code = 2218) 8 U/L ALT (test code = 2219) 9 U/L THYROID II PROFILE (T3U, T4, T7, TSH)[id number] 00:00:00* Test Item Value Reference Range Interpretation Comme nts T-UPTAKE (test code = 2817) 30.2 % THYROX. BIND. CAPAC. (test c ode = 99661) 1.1 T4 (THYROXINE) (test code = 2819) 6.9 UG/DL CORRECTED T4 (FTI) (test cod e = 2820) 6.3 UG/DL TSH, THIRD GENERATION (test code = 2821) 2.280 UIU/ML VITAMIN D, 25 [id number] 00:00:00* Test Item Value Reference Range Interpretation Comme nts VITAMIN D, 25 OH (test code = 4958) 12 NG/ML CBC W/AUTO [id number] 00:00:00* Test Item Value Reference Range Interpretation Comme nts WBC (test code = 1001) 6.6 K/UL RBC (test code = 1002) 4.70 M/UL HEMOGLOBIN (test code = 1003) 13.0 G/DL HEMATOCRIT (test code = 1004) 38.0 % MCV (test code = 1005) 80.9 fL MCH (test code = 1006) 27.7 PG MCHC (test code = 1007) 34.2 G/DL RDW (test code = 1038) 13.1 % NEUTROPHILS (test code = 1008) 47.0 % LYMPHOCYTES (test code = 1010) 37.7 % MONOCYTES (test code = 1011) 6.8 % EOSINOPHILS (test code = 1012) 7.9 % BASOPHILS (test code = 1013) 0.6 % PLATELET COUNT (test code = 1015) 349 K/UL HEMOGLOBIN [id number] 00:00:00* Test Item Value Reference Range Interpretation Comme nts HEMOGLOBIN A1c (test code = 45701) 6.2 % LIPID [id number] 00:00:00* Test Item Value Reference Range Interpretation Comme nts CHOLESTEROL (test code = 2210) 223 MG/DL TRIGLYCERIDES (test code = 2232) 230 MG/DL HDL CHOLESTEROL (test code = 2220) 31 MG/DL CALC LDL CHOL (test code = 2237) 146 MG/DL RISK RATIO LDL/HDL (test cod e = 2238) 4.71 RATIO COMPREHENSIVE METABOLIC [id number] 00:00:00* Test Item Value Reference Range Interpretation Comme nts GLUCOSE (test code = 2217) 121 MG/DL BUN (test code = 2208) 10 MG/DL CREATININE (test code = 2214) 0.67 MG/DL eGFR AMER. (test cod e = 02839) 108 ML/MIN/1.73 eGFR NON- AMER. (test code = 25679) 93 ML/MIN/1.73 CALC BUN/CREAT (test code = 2235) 15 RATIO SODIUM (test code = 2231) 143 MEQ/L POTASSIUM (test code = 2228) 3.9 MEQ/L CHLORIDE (test code = 2215) 103 MEQ/L CARBON DIOXIDE (test code = 2206) 28 MEQ/L CALCIUM (test code = 2209) 9.1 MG/DL PROTEIN, TOTAL (test code = 2229) 7.0 G/DL ALBUMIN (test code = 2201) 4.3 G/DL CALC GLOBULIN (test code = 2240) 2.7 G/DL CALC A/G RATIO (test code = 2234) 1.6 RATIO BILIRUBIN, TOTAL (test code = 2207) 0.3 MG/DL ALKALINE PHOSPHATASE (test code = 2204) 113 U/L AST (test code = 2218) 8 U/L ALT (test code = 2219) 9 U/L THYROID II PROFILE (T3U, T4, T7, TSH)[id number] 00:00:00* Test Item Value Reference Range Interpretation Comme nts T-UPTAKE (test code = 2817) 30.2 % THYROX. BIND. CAPAC. (test c ode = 88342) 1.1 T4 (THYROXINE) (test code = 2819) 6.9 UG/DL CORRECTED T4 (FTI) (test cod e = 2820) 6.3 UG/DL TSH, THIRD GENERATION (test code = 2821) 2.280 UIU/ML VITAMIN D, 25 [id number] 00:00:00* Test Item Value Reference Range Interpretation Comme [facility] VITAMIN D, 25 OH (test code = 4958) 12 NG/ML CBC W/AUTO [id number] 00:00:00* Test Item Value Reference Range Interpretation Comme nts WBC (test code = 1001) 6.6 K/UL RBC (test code = 1002) 4.70 M/UL HEMOGLOBIN (test code = 1003) 13.0 G/DL HEMATOCRIT (test code = 1004) 38.0 % MCV (test code = 1005) 80.9 fL MCH (test code = 1006) 27.7 PG MCHC (test code = 1007) 34.2 G/DL RDW (test code = 1038) 13.1 % NEUTROPHILS (test code = 1008) 47.0 % LYMPHOCYTES (test code = 1010) 37.7 % MONOCYTES (test code = 1011) 6.8 % EOSINOPHILS (test code = 1012) 7.9 % BASOPHILS (test code = 1013) 0.6 % PLATELET COUNT (test code = 1015) 349 K/UL HEMOGLOBIN [id number] 00:00:00* Test Item Value Reference Range Interpretation Comme nts HEMOGLOBIN A1c (test code = 08609) 6.2 % LIPID [id number] 00:00:00* Test Item Value Reference Range Interpretation Comme nts CHOLESTEROL (test code = 2210) 223 MG/DL TRIGLYCERIDES (test code = 2232) 230 MG/DL HDL CHOLESTEROL (test code = 2220) 31 MG/DL CALC LDL CHOL (test code = 2237) 146 MG/DL RISK RATIO LDL/HDL (test cod e = 2238) 4.71 RATIO COMPREHENSIVE METABOLIC [id number] 00:00:00* Test Item Value Reference Range Interpretation Comme nts GLUCOSE (test code = 2217) 121 MG/DL BUN (test code = 2208) 10 MG/DL CREATININE (test code = 2214) 0.67 MG/DL eGFR AMER. (test cod e = 83939) 108 ML/MIN/1.73 eGFR NON- AMER. (test code = 37451) 93 ML/MIN/1.73 CALC BUN/CREAT (test code = 2235) 15 RATIO SODIUM (test code = 2231) 143 MEQ/L POTASSIUM (test code = 2228) 3.9 MEQ/L CHLORIDE (test code = 2215) 103 MEQ/L CARBON DIOXIDE (test code = 2206) 28 MEQ/L CALCIUM (test code = 2209) 9.1 MG/DL PROTEIN, TOTAL (test code = 2229) 7.0 G/DL ALBUMIN (test code = 2201) 4.3 G/DL CALC GLOBULIN (test code = 2240) 2.7 G/DL CALC A/G RATIO (test code = 2234) 1.6 RATIO BILIRUBIN, TOTAL (test code = 2207) 0.3 MG/DL ALKALINE PHOSPHATASE (test code = 2204) 113 U/L AST (test code = 2218) 8 U/L ALT (test code = 2219) 9 U/L THYROID II PROFILE (T3U, T4, T7, TSH)2018-07-27 00:00:00* Test Item Value Reference Range Interpretation Comme nts T-UPTAKE (test code = 2817) 30.2 % THYROX. BIND. CAPAC. (test c ode = 86102) 1.1 T4 (THYROXINE) (test code = 2819) 6.9 UG/DL CORRECTED T4 (FTI) (test cod e = 2820) 6.3 UG/DL TSH, THIRD GENERATION (test code = 2821) 2.280 UIU/ML VITAMIN D, 25 [id number] 00:00:00* Test Item Value Reference Range Interpretation Comme nts VITAMIN D, 25 OH (test code = 4958) 12 NG/ML CBC W/AUTO [id number] 00:00:00* Test Item Value Reference Range Interpretation Comme nts WBC (test code = 1001) 6.6 K/UL RBC (test code = 1002) 4.70 M/UL HEMOGLOBIN (test code = 1003) 13.0 G/DL HEMATOCRIT (test code = 1004) 38.0 % MCV (test code = 1005) 80.9 fL MCH (test code = 1006) 27.7 PG MCHC (test code = 1007) 34.2 G/DL RDW (test code = 1038) 13.1 % NEUTROPHILS (test code = 1008) 47.0 % LYMPHOCYTES (test code = 1010) 37.7 % MONOCYTES (test code = 1011) 6.8 % EOSINOPHILS (test code = 1012) 7.9 % BASOPHILS (test code = 1013) 0.6 % PLATELET COUNT (test code = 1015) 349 K/UL HEMOGLOBIN [id number] 00:00:00* Test Item Value Reference Range Interpretation Comme nts HEMOGLOBIN A1c (test code = 87016) 6.2 % LIPID [id number] 00:00:00* Test Item Value Reference Range Interpretation Comme nts CHOLESTEROL (test code = 2210) 223 MG/DL TRIGLYCERIDES (test code = 2232) 230 MG/DL HDL CHOLESTEROL (test code = 2220) 31 MG/DL CALC LDL CHOL (test code = 2237) 146 MG/DL RISK RATIO LDL/HDL (test cod e = 2238) 4.71 RATIO COMPREHENSIVE METABOLIC [id number] 00:00:00* Test Item Value Reference Range Interpretation Comme nts GLUCOSE (test code = 2217) 121 MG/DL BUN (test code = 2208) 10 MG/DL CREATININE (test code = 2214) 0.67 MG/DL eGFR AMER. (test cod e = 51311) 108 ML/MIN/1.73 eGFR NON- AMER. (test code = 39590) 93 ML/MIN/1.73 CALC BUN/CREAT (test code = 2235) 15 RATIO SODIUM (test code = 2231) 143 MEQ/L POTASSIUM (test code = 2228) 3.9 MEQ/L CHLORIDE (test code = 2215) 103 MEQ/L CARBON DIOXIDE (test code = 2206) 28 MEQ/L CALCIUM (test code = 2209) 9.1 MG/DL PROTEIN, TOTAL (test code = 2229) 7.0 G/DL ALBUMIN (test code = 2201) 4.3 G/DL CALC GLOBULIN (test code = 2240) 2.7 G/DL CALC A/G RATIO (test code = 2234) 1.6 RATIO BILIRUBIN, TOTAL (test code = 2207) 0.3 MG/DL ALKALINE PHOSPHATASE (test code = 2204) 113 U/L AST (test code = 2218) 8 U/L ALT (test code = 2219) 9 U/L THYROID II PROFILE (T3U, T4, T7, TSH)2018-07-27 00:00:00* Test Item Value Reference Range Interpretation Comme nts T-UPTAKE (test code = 2817) 30.2 % THYROX. BIND. CAPAC. (test c ode = 95565) 1.1 T4 (THYROXINE) (test code = 2819) 6.9 UG/DL CORRECTED T4 (FTI) (test cod e = 2820) 6.3 UG/DL TSH, THIRD GENERATION (test code = 2821) 2.280 UIU/ML VITAMIN D, 25 [id number] 00:00:00* Test Item Value Reference Range Interpretation Comme [facility] VITAMIN D, 25 OH (test code = 4958) 12 NG/ML CBC W/AUTO [id number] 00:00:00* Test Item Value Reference Range Interpretation Comme nts WBC (test code = 1001) 6.6 K/UL RBC (test code = 1002) 4.70 M/UL HEMOGLOBIN (test code = 1003) 13.0 G/DL HEMATOCRIT (test code = 1004) 38.0 % MCV (test code = 1005) 80.9 fL MCH (test code = 1006) 27.7 PG MCHC (test code = 1007) 34.2 G/DL RDW (test code = 1038) 13.1 % NEUTROPHILS (test code = 1008) 47.0 % LYMPHOCYTES (test code = 1010) 37.7 % MONOCYTES (test code = 1011) 6.8 % EOSINOPHILS (test code = 1012) 7.9 % BASOPHILS (test code = 1013) 0.6 % PLATELET COUNT (test code = 1015) 349 K/UL HEMOGLOBIN [id number] 00:00:00* Test Item Value Reference Range Interpretation Comme nts HEMOGLOBIN A1c (test code = 74604) 6.2 % LIPID [id number] 00:00:00* Test Item Value Reference Range Interpretation Comme nts CHOLESTEROL (test code = 2210) 223 MG/DL TRIGLYCERIDES (test code = 2232) 230 MG/DL HDL CHOLESTEROL (test code = 2220) 31 MG/DL CALC LDL CHOL (test code = 2237) 146 MG/DL RISK RATIO LDL/HDL (test cod e = 2238) 4.71 RATIO COMPREHENSIVE METABOLIC [id number] 00:00:00* Test Item Value Reference Range Interpretation Comme nts GLUCOSE (test code = 221) 121 MG/DL BUN (test code = 2208) 10 MG/DL CREATININE (test code = 2214) 0.67 MG/DL eGFR AMER. (test cod e = 58030) 108 ML/MIN/1.73 eGFR NON- AMER. (test code = 18684) 93 ML/MIN/1.73 CALC BUN/CREAT (test code = 2235) 15 RATIO SODIUM (test code = 2231) 143 MEQ/L POTASSIUM (test code = 2228) 3.9 MEQ/L CHLORIDE (test code = 2215) 103 MEQ/L CARBON DIOXIDE (test code = 2206) 28 MEQ/L CALCIUM (test code = 2209) 9.1 MG/DL PROTEIN, TOTAL (test code = 2229) 7.0 G/DL ALBUMIN (test code = 2201) 4.3 G/DL CALC GLOBULIN (test code = 2240) 2.7 G/DL CALC A/G RATIO (test code = 2234) 1.6 RATIO BILIRUBIN, TOTAL (test code = 2207) 0.3 MG/DL ALKALINE PHOSPHATASE (test code = 2204) 113 U/L AST (test code = 2218) 8 U/L ALT (test code = 2219) 9 U/L THYROID II PROFILE (T3U, T4, T7, TSH)[id number] 00:00:00* Test Item Value Reference Range Interpretation Comme nts T-UPTAKE (test code = 2817) 30.2 % THYROX. BIND. CAPAC. (test c ode = 37631) 1.1 T4 (THYROXINE) (test code = 2819) 6.9 UG/DL CORRECTED T4 (FTI) (test cod e = 2820) 6.3 UG/DL TSH, THIRD GENERATION (test code = 2821) 2.280 UIU/ML VITAMIN D, 25 [id number] 00:00:00* Test Item Value Reference Range Interpretation Comme nts VITAMIN D, 25 OH (test code = 4958) 12 NG/ML CBC W/AUTO [id number] 00:00:00* Test Item Value Reference Range Interpretation Comme nts WBC (test code = 1001) 6.6 K/UL RBC (test code = 1002) 4.70 M/UL HEMOGLOBIN (test code = 1003) 13.0 G/DL HEMATOCRIT (test code = 1004) 38.0 % MCV (test code = 1005) 80.9 fL MCH (test code = 1006) 27.7 PG MCHC (test code = 1007) 34.2 G/DL RDW (test code = 1038) 13.1 % NEUTROPHILS (test code = 1008) 47.0 % LYMPHOCYTES (test code = 1010) 37.7 % MONOCYTES (test code = 1011) 6.8 % EOSINOPHILS (test code = 1012) 7.9 % BASOPHILS (test code = 1013) 0.6 % PLATELET COUNT (test code = 1015) 349 K/UL CBC W/AUTO [id number] 00:00:00* Test Item Value Reference Range Interpretation Comme nts WBC (test code = 1001) 6.6 K/UL RBC (test code = 1002) 4.70 M/UL HEMOGLOBIN (test code = 1003) 13.0 G/DL HEMATOCRIT (test code = 1004) 38.0 % MCV (test code = 1005) 80.9 fL MCH (test code = 1006) 27.7 PG MCHC (test code = 1007) 34.2 G/DL RDW (test code = 1038) 13.1 % NEUTROPHILS (test code = 1008) 47.0 % LYMPHOCYTES (test code = 1010) 37.7 % MONOCYTES (test code = 1011) 6.8 % EOSINOPHILS (test code = 1012) 7.9 % BASOPHILS (test code = 1013) 0.6 % PLATELET COUNT (test code = 1015) 349 K/UL HEMOGLOBIN [id number] 00:00:00* Test Item Value Reference Range Interpretation Comme nts HEMOGLOBIN A1c (test code = 11464) 6.2 % LIPID [id number] 00:00:00* Test Item Value Reference Range Interpretation Comme nts CHOLESTEROL (test code = 2210) 223 MG/DL TRIGLYCERIDES (test code = 2232) 230 MG/DL HDL CHOLESTEROL (test code = 2220) 31 MG/DL CALC LDL CHOL (test code = 2237) 146 MG/DL RISK RATIO LDL/HDL (test cod e = 2238) 4.71 RATIO COMPREHENSIVE METABOLIC [id number] 00:00:00* Test Item Value Reference Range Interpretation Comme nts GLUCOSE (test code = 2217) 121 MG/DL BUN (test code = 2208) 10 MG/DL CREATININE (test code = 2214) 0.67 MG/DL eGFR AMER. (test cod e = 98420) 108 ML/MIN/1.73 eGFR NON- AMER. (test code = 33251) 93 ML/MIN/1.73 CALC BUN/CREAT (test code = 2235) 15 RATIO SODIUM (test code = 2231) 143 MEQ/L POTASSIUM (test code = 2228) 3.9 MEQ/L CHLORIDE (test code = 2215) 103 MEQ/L CARBON DIOXIDE (test code = 2206) 28 MEQ/L CALCIUM (test code = 2209) 9.1 MG/DL PROTEIN, TOTAL (test code = 2229) 7.0 G/DL ALBUMIN (test code = 2201) 4.3 G/DL CALC GLOBULIN (test code = 2240) 2.7 G/DL CALC A/G RATIO (test code = 2234) 1.6 RATIO BILIRUBIN, TOTAL (test code = 2207) 0.3 MG/DL ALKALINE PHOSPHATASE (test code = 2204) 113 U/L AST (test code = 2218) 8 U/L ALT (test code = 2219) 9 U/L HEMOGLOBIN [id number] 00:00:00* Test Item Value Reference Range Interpretation Comme nts HEMOGLOBIN A1c (test code = 87954) 6.2 % THYROID II PROFILE (T3U, T4, T7, TSH)2018-07-27 00:00:00* Test Item Value Reference Range Interpretation Comme nts T-UPTAKE (test code = 2817) 30.2 % THYROX. BIND. CAPAC. (test c ode = 93743) 1.1 T4 (THYROXINE) (test code = 2819) 6.9 UG/DL CORRECTED T4 (FTI) (test cod e = 2820) 6.3 UG/DL TSH, THIRD GENERATION (test code = 2821) 2.280 UIU/ML VITAMIN D, 25 [id number] 00:00:00* Test Item Value Reference Range Interpretation Comme nts VITAMIN D, 25 OH (test code = 4958) 12 NG/ML LIPID [id number] 00:00:00* Test Item Value Reference Range Interpretation Comme nts CHOLESTEROL (test code = 2210) 223 MG/DL TRIGLYCERIDES (test code = 2232) 230 MG/DL HDL CHOLESTEROL (test code = 2220) 31 MG/DL CALC LDL CHOL (test code = 2237) 146 MG/DL RISK RATIO LDL/HDL (test cod e = 2238) 4.71 RATIO COMPREHENSIVE METABOLIC [id number] 00:00:00* Test Item Value Reference Range Interpretation Comme nts GLUCOSE (test code = 2217) 121 MG/DL BUN (test code = 2208) 10 MG/DL CREATININE (test code = 2214) 0.67 MG/DL eGFR AMER. (test cod e = 58337) 108 ML/MIN/1.73 eGFR NON- AMER. (test code = 31092) 93 ML/MIN/1.73 CALC BUN/CREAT (test code = 2235) 15 RATIO SODIUM (test code = 2231) 143 MEQ/L POTASSIUM (test code = 2228) 3.9 MEQ/L CHLORIDE (test code = 2215) 103 MEQ/L CARBON DIOXIDE (test code = 2206) 28 MEQ/L CALCIUM (test code = 2209) 9.1 MG/DL PROTEIN, TOTAL (test code = 2229) 7.0 G/DL ALBUMIN (test code = 2201) 4.3 G/DL CALC GLOBULIN (test code = 2240) 2.7 G/DL CALC A/G RATIO (test code = 2234) 1.6 RATIO BILIRUBIN, TOTAL (test code = 2207) 0.3 MG/DL ALKALINE PHOSPHATASE (test code = 2204) 113 U/L AST (test code = 2218) 8 U/L ALT (test code = 2219) 9 U/L THYROID II PROFILE (T3U, T4, T7, TSH)2018-07-27 00:00:00* Test Item Value Reference Range Interpretation Comme nts T-UPTAKE (test code = 2817) 30.2 % THYROX. BIND. CAPAC. (test c ode = 62398) 1.1 T4 (THYROXINE) (test code = 2819) 6.9 UG/DL CORRECTED T4 (FTI) (test cod e = 2820) 6.3 UG/DL TSH, THIRD GENERATION (test code = 2821) 2.280 UIU/ML VITAMIN D, 25 [id number] 00:00:00* Test Item Value Reference Range Interpretation Comme nts VITAMIN D, 25 OH (test code = 4958) 12 NG/ML CBC W/AUTO [id number] 00:00:00* Test Item Value Reference Range Interpretation Comme nts WBC (test code = 1001) 6.6 K/UL RBC (test code = 1002) 4.70 M/UL HEMOGLOBIN (test code = 1003) 13.0 G/DL HEMATOCRIT (test code = 1004) 38.0 % MCV (test code = 1005) 80.9 fL MCH (test code = 1006) 27.7 PG MCHC (test code = 1007) 34.2 G/DL RDW (test code = 1038) 13.1 % NEUTROPHILS (test code = 1008) 47.0 % LYMPHOCYTES (test code = 1010) 37.7 % MONOCYTES (test code = 1011) 6.8 % EOSINOPHILS (test code = 1012) 7.9 % BASOPHILS (test code = 1013) 0.6 % PLATELET COUNT (test code = 1015) 349 K/UL HEMOGLOBIN [id number] 00:00:00* Test Item Value Reference Range Interpretation Comme [facility] HEMOGLOBIN A1c (test code = 19785) 6.2 % LIPID [id number] 00:00:00* Test Item Value Reference Range Interpretation Comme nts CHOLESTEROL (test code = 2210) 223 MG/DL TRIGLYCERIDES (test code = 2232) 230 MG/DL HDL CHOLESTEROL (test code = 2220) 31 MG/DL CALC LDL CHOL (test code = 2237) 146 MG/DL RISK RATIO LDL/HDL (test cod e = 2238) 4.71 RATIO COMPREHENSIVE METABOLIC [id number] 00:00:00* Test Item Value Reference Range Interpretation Comme nts GLUCOSE (test code = 2217) 121 MG/DL BUN (test code = 2208) 10 MG/DL CREATININE (test code = 2214) 0.67 MG/DL eGFR AMER. (test cod e = 55292) 108 ML/MIN/1.73 eGFR NON- AMER. (test code = 93577) 93 ML/MIN/1.73 CALC BUN/CREAT (test code = 2235) 15 RATIO SODIUM (test code = 2231) 143 MEQ/L POTASSIUM (test code = 2228) 3.9 MEQ/L CHLORIDE (test code = 2215) 103 MEQ/L CARBON DIOXIDE (test code = 2206) 28 MEQ/L CALCIUM (test code = 2209) 9.1 MG/DL PROTEIN, TOTAL (test code = 2229) 7.0 G/DL ALBUMIN (test code = 2201) 4.3 G/DL CALC GLOBULIN (test code = 2240) 2.7 G/DL CALC A/G RATIO (test code = 2234) 1.6 RATIO BILIRUBIN, TOTAL (test code = 2207) 0.3 MG/DL ALKALINE PHOSPHATASE (test code = 2204) 113 U/L AST (test code = 2218) 8 U/L ALT (test code = 2219) 9 U/L THYROID II PROFILE (T3U, T4, T7, TSH)2018-07-27 00:00:00* Test Item Value Reference Range Interpretation Comme nts T-UPTAKE (test code = 2817) 30.2 % THYROX. BIND. CAPAC. (test c ode = 63989) 1.1 T4 (THYROXINE) (test code = 2819) 6.9 UG/DL CORRECTED T4 (FTI) (test cod e = 2820) 6.3 UG/DL TSH, THIRD GENERATION (test code = 2821) 2.280 UIU/ML VITAMIN D, 25 [id number] 00:00:00* Test Item Value Reference Range Interpretation Comme nts VITAMIN D, 25 OH (test code = 4958) 12 NG/ML CBC W/AUTO [id number] 00:00:00* Test Item Value Reference Range Interpretation Comme nts WBC (test code = 1001) 6.6 K/UL RBC (test code = 1002) 4.70 M/UL HEMOGLOBIN (test code = 1003) 13.0 G/DL HEMATOCRIT (test code = 1004) 38.0 % MCV (test code = 1005) 80.9 fL MCH (test code = 1006) 27.7 PG MCHC (test code = 1007) 34.2 G/DL RDW (test code = 1038) 13.1 % NEUTROPHILS (test code = 1008) 47.0 % LYMPHOCYTES (test code = 1010) 37.7 % MONOCYTES (test code = 1011) 6.8 % EOSINOPHILS (test code = 1012) 7.9 % BASOPHILS (test code = 1013) 0.6 % PLATELET COUNT (test code = 1015) 349 K/UL HEMOGLOBIN [id number] 00:00:00* Test Item Value Reference Range Interpretation Comme nts HEMOGLOBIN A1c (test code = 42533) 6.2 % LIPID [id number] 00:00:00* Test Item Value Reference Range Interpretation Comme nts CHOLESTEROL (test code = 2210) 223 MG/DL TRIGLYCERIDES (test code = 2232) 230 MG/DL HDL CHOLESTEROL (test code = 2220) 31 MG/DL CALC LDL CHOL (test code = 2237) 146 MG/DL RISK RATIO LDL/HDL (test cod e = 2238) 4.71 RATIO COMPREHENSIVE METABOLIC [id number] 00:00:00* Test Item Value Reference Range Interpretation Comme nts GLUCOSE (test code = 2217) 121 MG/DL BUN (test code = 2208) 10 MG/DL CREATININE (test code = 2214) 0.67 MG/DL eGFR AMER. (test cod e = 75786) 108 ML/MIN/1.73 eGFR NON- AMER. (test code = 26939) 93 ML/MIN/1.73 CALC BUN/CREAT (test code = 2235) 15 RATIO SODIUM (test code = 2231) 143 MEQ/L POTASSIUM (test code = 2228) 3.9 MEQ/L CHLORIDE (test code = 2215) 103 MEQ/L CARBON DIOXIDE (test code = 2206) 28 MEQ/L CALCIUM (test code = 2209) 9.1 MG/DL PROTEIN, TOTAL (test code = 2229) 7.0 G/DL ALBUMIN (test code = 2201) 4.3 G/DL CALC GLOBULIN (test code = 2240) 2.7 G/DL CALC A/G RATIO (test code = 2234) 1.6 RATIO BILIRUBIN, TOTAL (test code = 2207) 0.3 MG/DL ALKALINE PHOSPHATASE (test code = 2204) 113 U/L AST (test code = 2218) 8 U/L ALT (test code = 2219) 9 U/L Topher Cam KevinTHYROID II PROFILE (T3U, T4, T7, TSH)2018-07-27 00:00:00* Test Item Value Reference Range Interpretation Comme nts T-UPTAKE (test code = 2817) 30.2 % THYROX. BIND. CAPAC. (test c ode = 57129) 1.1 T4 (THYROXINE) (test code = 2819) 6.9 UG/DL CORRECTED T4 (FTI) (test cod e = 2820) 6.3 UG/DL TSH, THIRD GENERATION (test code = 2821) 2.280 UIU/ML Topher Cam KevinVITAMIN D, 25 [id number] 00:00:00* Test Item Value Reference Range Interpretation Comme [facility] VITAMIN D, 25 OH (test code = 4958) 12 NG/ML Topher Cam KevinCBC W/AUTO [id number] 00:00:00* Test Item Value Reference Range Interpretation Comme [facility] WBC (test code = 1001) 6.6 K/UL RBC (test code = 1002) 4.70 M/UL HEMOGLOBIN (test code = 1003) 13.0 G/DL HEMATOCRIT (test code = 1004) 38.0 % MCV (test code = 1005) 80.9 fL MCH (test code = 1006) 27.7 PG MCHC (test code = 1007) 34.2 G/DL RDW (test code = 1038) 13.1 % NEUTROPHILS (test code = 1008) 47.0 % LYMPHOCYTES (test code = 1010) 37.7 % MONOCYTES (test code = 1011) 6.8 % EOSINOPHILS (test code = 1012) 7.9 % BASOPHILS (test code = 1013) 0.6 % PLATELET COUNT (test code = 1015) 349 K/UL Top[facility] Cam KevinHEMOGLOBIN [id number] 00:00:00* Test Item Value Reference Range Interpretation Comme [facility] HEMOGLOBIN A1c (test code = 59971) 6.2 % Topher BrownLIPID [id number] 00:00:00* Test Item Value Reference Range Interpretation Comme nts CHOLESTEROL (test code = 2210) 223 MG/DL TRIGLYCERIDES (test code = 2232) 230 MG/DL HDL CHOLESTEROL (test code = 2220) 31 MG/DL CALC LDL CHOL (test code = 2237) 146 MG/DL RISK RATIO LDL/HDL (test cod e = 2238) 4.71 RATIO Topher BrownCOMPREHENSIVE METABOLIC [id number] 00:00:00* Test Item Value Reference Range Interpretation Comme nts GLUCOSE (test code = 2217) 121 MG/DL BUN (test code = 2208) 10 MG/DL CREATININE (test code = 2214) 0.67 MG/DL eGFR AMER. (test cod e = 69837) 108 ML/MIN/1.73 eGFR NON- AMER. (test code = 19612) 93 ML/MIN/1.73 CALC BUN/CREAT (test code = 2235) 15 RATIO SODIUM (test code = 2231) 143 MEQ/L POTASSIUM (test code = 2228) 3.9 MEQ/L CHLORIDE (test code = 2215) 103 MEQ/L CARBON DIOXIDE (test code = 2206) 28 MEQ/L CALCIUM (test code = 2209) 9.1 MG/DL PROTEIN, TOTAL (test code = 2229) 7.0 G/DL ALBUMIN (test code = 2201) 4.3 G/DL CALC GLOBULIN (test code = 2240) 2.7 G/DL CALC A/G RATIO (test code = 2234) 1.6 RATIO BILIRUBIN, TOTAL (test code = 2207) 0.3 MG/DL ALKALINE PHOSPHATASE (test code = 2204) 113 U/L AST (test code = 2218) 8 U/L ALT (test code = 2219) 9 U/L Topher BrownTHYROID II PROFILE (T3U, T4, T7, TSH)2018-07-27 00:00:00* Test Item Value Reference Range Interpretation Comme nts T-UPTAKE (test code = 2817) 30.2 % THYROX. BIND. CAPAC. (test c ode = 86266) 1.1 T4 (THYROXINE) (test code = 2819) 6.9 UG/DL CORRECTED T4 (FTI) (test cod e = 2820) 6.3 UG/DL TSH, THIRD GENERATION (test code = 2821) 2.280 UIU/ML Topher BrownVITAMIN D, 25 [id number] 00:00:00* Test Item Value Reference Range Interpretation Comme [facility] VITAMIN D, 25 OH (test code = 4958) 12 NG/ML Topher BrownHEMOGLOBIN [id number] 00:00:00* Test Item Value Reference Range Interpretation Comme [facility] HEMOGLOBIN A1c (test code = 26681) 6.2 % Topher BrownCBC W/AUTO [id number] 00:00:00* Test Item Value Reference Range Interpretation Comme nts WBC (test code = 1001) 6.6 K/UL RBC (test code = 1002) 4.70 M/UL HEMOGLOBIN (test code = 1003) 13.0 G/DL HEMATOCRIT (test code = 1004) 38.0 % MCV (test code = 1005) 80.9 fL MCH (test code = 1006) 27.7 PG MCHC (test code = 1007) 34.2 G/DL RDW (test code = 1038) 13.1 % NEUTROPHILS (test code = 1008) 47.0 % LYMPHOCYTES (test code = 1010) 37.7 % MONOCYTES (test code = 1011) 6.8 % EOSINOPHILS (test code = 1012) 7.9 % BASOPHILS (test code = 1013) 0.6 % PLATELET COUNT (test code = 1015) 349 K/UL Topher BrownHEMOGLOBIN [id number] 00:00:00* Test Item Value Reference Range Interpretation Comme [facility] HEMOGLOBIN A1c (test code = 22913) 6.2 % Topher BrownLIPID [id number] 00:00:00* Test Item Value Reference Range Interpretation Comme nts CHOLESTEROL (test code = 2210) 223 MG/DL TRIGLYCERIDES (test code = 2232) 230 MG/DL HDL CHOLESTEROL (test code = 2220) 31 MG/DL CALC LDL CHOL (test code = 2237) 146 MG/DL RISK RATIO LDL/HDL (test cod e = 2238) 4.71 RATIO Topher BrownCOMPREHENSIVE METABOLIC [id number] 00:00:00* Test Item Value Reference Range Interpretation Comme nts GLUCOSE (test code = 2217) 121 MG/DL BUN (test code = 2208) 10 MG/DL CREATININE (test code = 2214) 0.67 MG/DL eGFR AMER. (test cod e = 44492) 108 ML/MIN/1.73 eGFR NON- AMER. (test code = 39508) 93 ML/MIN/1.73 CALC BUN/CREAT (test code = 2235) 15 RATIO SODIUM (test code = 2231) 143 MEQ/L POTASSIUM (test code = 2228) 3.9 MEQ/L CHLORIDE (test code = 2215) 103 MEQ/L CARBON DIOXIDE (test code = 2206) 28 MEQ/L CALCIUM (test code = 2209) 9.1 MG/DL PROTEIN, TOTAL (test code = 2229) 7.0 G/DL ALBUMIN (test code = 2201) 4.3 G/DL CALC GLOBULIN (test code = 2240) 2.7 G/DL CALC A/G RATIO (test code = 2234) 1.6 RATIO BILIRUBIN, TOTAL (test code = 2207) 0.3 MG/DL ALKALINE PHOSPHATASE (test code = 2204) 113 U/L AST (test code = 2218) 8 U/L ALT (test code = 2219) 9 U/L Topher BrownTHYROID II PROFILE (T3U, T4, T7, TSH)2018-07-27 00:00:00* Test Item Value Reference Range Interpretation Comme nts T-UPTAKE (test code = 2817) 30.2 % THYROX. BIND. CAPAC. (test c ode = 94717) 1.1 T4 (THYROXINE) (test code = 2819) 6.9 UG/DL CORRECTED T4 (FTI) (test cod e = 2820) 6.3 UG/DL TSH, THIRD GENERATION (test code = 2821) 2.280 UIU/ML Topher BrownVITAMIN D, 25 [id number] 00:00:00* Test Item Value Reference Range Interpretation Comme nts VITAMIN D, 25 OH (test code = 4958) 12 NG/ML Topher BrownCBC W/AUTO [id number] 00:00:00* Test Item Value Reference Range Interpretation Comme nts WBC (test code = 1001) 6.6 K/UL RBC (test code = 1002) 4.70 M/UL HEMOGLOBIN (test code = 1003) 13.0 G/DL HEMATOCRIT (test code = 1004) 38.0 % MCV (test code = 1005) 80.9 fL MCH (test code = 1006) 27.7 PG MCHC (test code = 1007) 34.2 G/DL RDW (test code = 1038) 13.1 % NEUTROPHILS (test code = 1008) 47.0 % LYMPHOCYTES (test code = 1010) 37.7 % MONOCYTES (test code = 1011) 6.8 % EOSINOPHILS (test code = 1012) 7.9 % BASOPHILS (test code = 1013) 0.6 % PLATELET COUNT (test code = 1015) 349 K/UL Topher BrownHEMOGLOBIN [id number] 00:00:00* Test Item Value Reference Range Interpretation Comme [facility] HEMOGLOBIN A1c (test code = 42435) 6.2 % Topher BrownLIPID [id number] 00:00:00* Test Item Value Reference Range Interpretation Comme nts CHOLESTEROL (test code = 2210) 223 MG/DL TRIGLYCERIDES (test code = 2232) 230 MG/DL HDL CHOLESTEROL (test code = 2220) 31 MG/DL CALC LDL CHOL (test code = 2237) 146 MG/DL RISK RATIO LDL/HDL (test cod e = 2238) 4.71 RATIO Topher BrownCOMPREHENSIVE METABOLIC [id number] 00:00:00* Test Item Value Reference Range Interpretation Comme nts GLUCOSE (test code = 2217) 121 MG/DL BUN (test code = 2208) 10 MG/DL CREATININE (test code = 2214) 0.67 MG/DL eGFR AMER. (test cod e = 69219) 108 ML/MIN/1.73 eGFR NON- AMER. (test code = 54405) 93 ML/MIN/1.73 CALC BUN/CREAT (test code = 2235) 15 RATIO SODIUM (test code = 2231) 143 MEQ/L POTASSIUM (test code = 2228) 3.9 MEQ/L CHLORIDE (test code = 2215) 103 MEQ/L CARBON DIOXIDE (test code = 2206) 28 MEQ/L CALCIUM (test code = 2209) 9.1 MG/DL PROTEIN, TOTAL (test code = 2229) 7.0 G/DL ALBUMIN (test code = 2201) 4.3 G/DL CALC GLOBULIN (test code = 2240) 2.7 G/DL CALC A/G RATIO (test code = 2234) 1.6 RATIO BILIRUBIN, TOTAL (test code = 2207) 0.3 MG/DL ALKALINE PHOSPHATASE (test code = 2204) 113 U/L AST (test code = 2218) 8 U/L ALT (test code = 2219) 9 U/L Topher BrownTHYROID II PROFILE (T3U, T4, T7, TSH)2018-07-27 00:00:00* Test Item Value Reference Range Interpretation Comme nts T-UPTAKE (test code = 2817) 30.2 % THYROX. BIND. CAPAC. (test c ode = 57403) 1.1 T4 (THYROXINE) (test code = 2819) 6.9 UG/DL CORRECTED T4 (FTI) (test cod e = 2820) 6.3 UG/DL TSH, THIRD GENERATION (test code = 2821) 2.280 UIU/ML Topher BrownLIPID [id number] 00:00:00* Test Item Value Reference Range Interpretation Comme nts CHOLESTEROL (test code = 2210) 223 MG/DL TRIGLYCERIDES (test code = 2232) 230 MG/DL HDL CHOLESTEROL (test code = 2220) 31 MG/DL CALC LDL CHOL (test code = 2237) 146 MG/DL RISK RATIO LDL/HDL (test cod e = 2238) 4.71 RATIO Topher BrownVITAMIN D, 25 [id number] 00:00:00* Test Item Value Reference Range Interpretation Comme [facility] VITAMIN D, 25 OH (test code = 4958) 12 NG/ML Topher BrownCOMPREHENSIVE METABOLIC [id number] 00:00:00* Test Item Value Reference Range Interpretation Comme nts GLUCOSE (test code = 2217) 121 MG/DL BUN (test code = 2208) 10 MG/DL CREATININE (test code = 2214) 0.67 MG/DL eGFR AMER. (test cod e = 89524) 108 ML/MIN/1.73 eGFR NON- AMER. (test code = 89105) 93 ML/MIN/1.73 CALC BUN/CREAT (test code = 2235) 15 RATIO SODIUM (test code = 2231) 143 MEQ/L POTASSIUM (test code = 2228) 3.9 MEQ/L CHLORIDE (test code = 2215) 103 MEQ/L CARBON DIOXIDE (test code = 2206) 28 MEQ/L CALCIUM (test code = 2209) 9.1 MG/DL PROTEIN, TOTAL (test code = 9) 7.0 G/DL ALBUMIN (test code = 2201) 4.3 G/DL CALC GLOBULIN (test code = 2240) 2.7 G/DL CALC A/G RATIO (test code = 2234) 1.6 RATIO BILIRUBIN, TOTAL (test code = 2206) 0.3 MG/DL ALKALINE PHOSPHATASE (test code = 2203) 113 U/L AST (test code = 2218) 8 U/L ALT (test code = 2219) 9 U/L Topher BrownTHYROID II PROFILE (T3U, T4, T7, TSH)2018-07-27 00:00:00* Test Item Value Reference Range Interpretation Comme nts T-UPTAKE (test code = 2817) 30.2 % THYROX. BIND. CAPAC. (test c ode = 72709) 1.1 T4 (THYROXINE) (test code = 2819) 6.9 UG/DL CORRECTED T4 (FTI) (test cod e = 2820) 6.3 UG/DL TSH, THIRD GENERATION (test code = 2821) 2.280 UIU/ML Topher BrownVITAMIN D, 25 [id number] 00:00:00* Test Item Value Reference Range Interpretation Comme [facility] VITAMIN D, 25 OH (test code = 4958) 12 NG/ML Topher BrownCBC W/AUTO [id number] 00:00:00* Test Item Value Reference Range Interpretation Comme nts WBC (test code = 1001) 6.6 K/UL RBC (test code = 1002) 4.70 M/UL HEMOGLOBIN (test code = 1003) 13.0 G/DL HEMATOCRIT (test code = 1004) 38.0 % MCV (test code = 1005) 80.9 fL MCH (test code = 1006) 27.7 PG MCHC (test code = 1007) 34.2 G/DL RDW (test code = 1038) 13.1 % NEUTROPHILS (test code = 1008) 47.0 % LYMPHOCYTES (test code = 1010) 37.7 % MONOCYTES (test code = 1011) 6.8 % EOSINOPHILS (test code = 1012) 7.9 % BASOPHILS (test code = 1013) 0.6 % PLATELET COUNT (test code = 1015) 349 K/UL Topher BrownHEMOGLOBIN [id number] 00:00:00* Test Item Value Reference Range Interpretation Comme nts HEMOGLOBIN A1c (test code = 95708) 6.2 % Topher BrownLIPID [id number] 00:00:00* Test Item Value Reference Range Interpretation Comme nts CHOLESTEROL (test code = 2210) 223 MG/DL TRIGLYCERIDES (test code = 2232) 230 MG/DL HDL CHOLESTEROL (test code = 2220) 31 MG/DL CALC LDL CHOL (test code = 2237) 146 MG/DL RISK RATIO LDL/HDL (test cod e = 2238) 4.71 RATIO Topher BrownCOMPREHENSIVE METABOLIC [id number] 00:00:00* Test Item Value Reference Range Interpretation Comme nts GLUCOSE (test code = 2217) 121 MG/DL BUN (test code = 2208) 10 MG/DL CREATININE (test code = 2214) 0.67 MG/DL eGFR AMER. (test cod e = 32519) 108 ML/MIN/1.73 eGFR NON- AMER. (test code = 16839) 93 ML/MIN/1.73 CALC BUN/CREAT (test code = 2235) 15 RATIO SODIUM (test code = 2231) 143 MEQ/L POTASSIUM (test code = 2228) 3.9 MEQ/L CHLORIDE (test code = 2215) 103 MEQ/L CARBON DIOXIDE (test code = 2206) 28 MEQ/L CALCIUM (test code = 2209) 9.1 MG/DL PROTEIN, TOTAL (test code = 2229) 7.0 G/DL ALBUMIN (test code = 2201) 4.3 G/DL CALC GLOBULIN (test code = 2240) 2.7 G/DL CALC A/G RATIO (test code = 2234) 1.6 RATIO BILIRUBIN, TOTAL (test code = 2207) 0.3 MG/DL ALKALINE PHOSPHATASE (test code = 2204) 113 U/L AST (test code = 2218) 8 U/L ALT (test code = 2219) 9 U/L Topher BrownTHYROID II PROFILE (T3U, T4, T7, TSH)2018-07-27 00:00:00* Test Item Value Reference Range Interpretation Comme nts T-UPTAKE (test code = 2817) 30.2 % THYROX. BIND. CAPAC. (test c ode = 07561) 1.1 T4 (THYROXINE) (test code = 2819) 6.9 UG/DL CORRECTED T4 (FTI) (test cod e = 2820) 6.3 UG/DL TSH, THIRD GENERATION (test code = 2821) 2.280 UIU/ML Topher BrownVITAMIN D, 25 [id number] 00:00:00* Test Item Value Reference Range Interpretation Comme nts VITAMIN D, 25 OH (test code = 4958) 12 NG/ML Topher BrownCBC W/AUTO [id number] 00:00:00* Test Item Value Reference Range Interpretation Comme nts WBC (test code = 1001) 6.6 K/UL RBC (test code = 1002) 4.70 M/UL HEMOGLOBIN (test code = 1003) 13.0 G/DL HEMATOCRIT (test code = 1004) 38.0 % MCV (test code = 1005) 80.9 fL MCH (test code = 1006) 27.7 PG MCHC (test code = 1007) 34.2 G/DL RDW (test code = 1038) 13.1 % NEUTROPHILS (test code = 1008) 47.0 % LYMPHOCYTES (test code = 1010) 37.7 % MONOCYTES (test code = 1011) 6.8 % EOSINOPHILS (test code = 1012) 7.9 % BASOPHILS (test code = 1013) 0.6 % PLATELET COUNT (test code = 1015) 349 K/UL Topher BrownHEMOGLOBIN [id number] 00:00:00* Test Item Value Reference Range Interpretation Comme [facility] HEMOGLOBIN A1c (test code = 42927) 6.2 % Topher BrownLIPID [id number] 00:00:00* Test Item Value Reference Range Interpretation Comme nts CHOLESTEROL (test code = 2210) 223 MG/DL TRIGLYCERIDES (test code = 2232) 230 MG/DL HDL CHOLESTEROL (test code = 2220) 31 MG/DL CALC LDL CHOL (test code = 2237) 146 MG/DL RISK RATIO LDL/HDL (test cod e = 2238) 4.71 RATIO Topher BrownCOMPREHENSIVE METABOLIC [id number] 00:00:00* Test Item Value Reference Range Interpretation Comme nts GLUCOSE (test code = 2217) 121 MG/DL BUN (test code = 2208) 10 MG/DL CREATININE (test code = 2214) 0.67 MG/DL eGFR AMER. (test cod e = 48088) 108 ML/MIN/1.73 eGFR NON- AMER. (test code = 10434) 93 ML/MIN/1.73 CALC BUN/CREAT (test code = 2235) 15 RATIO SODIUM (test code = 2231) 143 MEQ/L POTASSIUM (test code = 2228) 3.9 MEQ/L CHLORIDE (test code = 2215) 103 MEQ/L CARBON DIOXIDE (test code = 2206) 28 MEQ/L CALCIUM (test code = 2209) 9.1 MG/DL PROTEIN, TOTAL (test code = 2229) 7.0 G/DL ALBUMIN (test code = 2201) 4.3 G/DL CALC GLOBULIN (test code = 2240) 2.7 G/DL CALC A/G RATIO (test code = 2234) 1.6 RATIO BILIRUBIN, TOTAL (test code = 2207) 0.3 MG/DL ALKALINE PHOSPHATASE (test code = 2204) 113 U/L AST (test code = 2218) 8 U/L ALT (test code = 2219) 9 U/L Topher BrownTHYROID II PROFILE (T3U, T4, T7, TSH)2018-07-27 00:00:00* Test Item Value Reference Range Interpretation Comme nts T-UPTAKE (test code = 2817) 30.2 % THYROX. BIND. CAPAC. (test c ode = 87161) 1.1 T4 (THYROXINE) (test code = 2819) 6.9 UG/DL CORRECTED T4 (FTI) (test cod e = 2820) 6.3 UG/DL TSH, THIRD GENERATION (test code = 2821) 2.280 UIU/ML Topher Cam KevinVITAMIN D, 25 [id number] 00:00:00* Test Item Value Reference Range Interpretation Comme [facility] VITAMIN D, 25 OH (test code = 4958) 12 NG/ML Topher Cam KevinCBC W/AUTO [id number] 00:00:00* Test Item Value Reference Range Interpretation Comme nts WBC (test code = 1001) 6.6 K/UL RBC (test code = 1002) 4.70 M/UL HEMOGLOBIN (test code = 1003) 13.0 G/DL HEMATOCRIT (test code = 1004) 38.0 % MCV (test code = 1005) 80.9 fL MCH (test code = 1006) 27.7 PG MCHC (test code = 1007) 34.2 G/DL RDW (test code = 1038) 13.1 % NEUTROPHILS (test code = 1008) 47.0 % LYMPHOCYTES (test code = 1010) 37.7 % MONOCYTES (test code = 1011) 6.8 % EOSINOPHILS (test code = 1012) 7.9 % BASOPHILS (test code = 1013) 0.6 % PLATELET COUNT (test code = 1015) 349 K/UL Topher BrownHEMOGLOBIN [id number] 00:00:00* Test Item Value Reference Range Interpretation Comme nts HEMOGLOBIN A1c (test code = 98446) 6.2 % Topher BrownLIPID [id number] 00:00:00* Test Item Value Reference Range Interpretation Comme nts CHOLESTEROL (test code = 2210) 223 MG/DL TRIGLYCERIDES (test code = 2232) 230 MG/DL HDL CHOLESTEROL (test code = 2220) 31 MG/DL CALC LDL CHOL (test code = 2237) 146 MG/DL RISK RATIO LDL/HDL (test cod e = 2238) 4.71 RATIO Topher BrownCOMPREHENSIVE METABOLIC [id number] 00:00:00* Test Item Value Reference Range Interpretation Comme nts GLUCOSE (test code = 2217) 121 MG/DL BUN (test code = 2208) 10 MG/DL CREATININE (test code = 2214) 0.67 MG/DL eGFR AMER. (test cod e = 58705) 108 ML/MIN/1.73 eGFR NON- AMER. (test code = 49476) 93 ML/MIN/1.73 CALC BUN/CREAT (test code = 2235) 15 RATIO SODIUM (test code = 2231) 143 MEQ/L POTASSIUM (test code = 2228) 3.9 MEQ/L CHLORIDE (test code = 2215) 103 MEQ/L CARBON DIOXIDE (test code = 2206) 28 MEQ/L CALCIUM (test code = 2209) 9.1 MG/DL PROTEIN, TOTAL (test code = 2229) 7.0 G/DL ALBUMIN (test code = 2201) 4.3 G/DL CALC GLOBULIN (test code = 2240) 2.7 G/DL CALC A/G RATIO (test code = 2234) 1.6 RATIO BILIRUBIN, TOTAL (test code = 2207) 0.3 MG/DL ALKALINE PHOSPHATASE (test code = 2204) 113 U/L AST (test code = 2218) 8 U/L ALT (test code = 2219) 9 U/L Topher BrownTHYROID II PROFILE (T3U, T4, T7, TSH)[id number] 00:00:00* Test Item Value Reference Range Interpretation Comme nts T-UPTAKE (test code = 2817) 30.2 % THYROX. BIND. CAPAC. (test c ode = 63010) 1.1 T4 (THYROXINE) (test code = 2819) 6.9 UG/DL CORRECTED T4 (FTI) (test cod e = 2820) 6.3 UG/DL TSH, THIRD GENERATION (test code = 2821) 2.280 UIU/ML Topher BrownVITAMIN D, 25 [id number] 00:00:00* Test Item Value Reference Range Interpretation Comme [facility] VITAMIN D, 25 OH (test code = 4958) 12 NG/ML Topher BrownCBC W/AUTO [id number] 00:00:00* Test Item Value Reference Range Interpretation Comme [facility] WBC (test code = 1001) 6.6 K/UL RBC (test code = 1002) 4.70 M/UL HEMOGLOBIN (test code = 1003) 13.0 G/DL HEMATOCRIT (test code = 1004) 38.0 % MCV (test code = 1005) 80.9 fL MCH (test code = 1006) 27.7 PG MCHC (test code = 1007) 34.2 G/DL RDW (test code = 1038) 13.1 % NEUTROPHILS (test code = 1008) 47.0 % LYMPHOCYTES (test code = 1010) 37.7 % MONOCYTES (test code = 1011) 6.8 % EOSINOPHILS (test code = 1012) 7.9 % BASOPHILS (test code = 1013) 0.6 % PLATELET COUNT (test code = 1015) 349 K/UL Topher BrownHEMOGLOBIN [id number] 00:00:00* Test Item Value Reference Range Interpretation Comme [facility] HEMOGLOBIN A1c (test code = 03194) 6.2 % Topher BrownLIPID [id number] 00:00:00* Test Item Value Reference Range Interpretation Comme nts CHOLESTEROL (test code = 2210) 223 MG/DL TRIGLYCERIDES (test code = 2232) 230 MG/DL HDL CHOLESTEROL (test code = 2220) 31 MG/DL CALC LDL CHOL (test code = 2237) 146 MG/DL RISK RATIO LDL/HDL (test cod e = 2238) 4.71 RATIO Topher BrownCOMPREHENSIVE METABOLIC [id number] 00:00:00* Test Item Value Reference Range Interpretation Comme nts GLUCOSE (test code = 2217) 121 MG/DL BUN (test code = 2208) 10 MG/DL CREATININE (test code = 2214) 0.67 MG/DL eGFR AMER. (test cod e = 37041) 108 ML/MIN/1.73 eGFR NON- AMER. (test code = 08781) 93 ML/MIN/1.73 CALC BUN/CREAT (test code = 2235) 15 RATIO SODIUM (test code = 2231) 143 MEQ/L POTASSIUM (test code = 2228) 3.9 MEQ/L CHLORIDE (test code = 2215) 103 MEQ/L CARBON DIOXIDE (test code = 2206) 28 MEQ/L CALCIUM (test code = 2209) 9.1 MG/DL PROTEIN, TOTAL (test code = 2229) 7.0 G/DL ALBUMIN (test code = 2201) 4.3 G/DL CALC GLOBULIN (test code = 2240) 2.7 G/DL CALC A/G RATIO (test code = 2234) 1.6 RATIO BILIRUBIN, TOTAL (test code = 2207) 0.3 MG/DL ALKALINE PHOSPHATASE (test code = 2204) 113 U/L AST (test code = 2218) 8 U/L ALT (test code = 2219) 9 U/L Topher BrownHEMOGLOBIN [id number] 00:00:00* Test Item Value Reference Range Interpretation Comme [facility] HEMOGLOBIN A1c (test code = 28699) 6.5 % Topher BrownCOMPREHENSIVE METABOLIC [id number] 00:00:00* Test Item Value Reference Range Interpretation Comme nts GLUCOSE (test code = 2217) 132 MG/DL BUN (test code = 2208) 7 MG/DL CREATININE (test code = 2214) 0.74 MG/DL eGFR AMER. (test cod e = 15643) 100 ML/MIN/1.73 eGFR NON- AMER. (test code = 47813) 86 ML/MIN/1.73 CALC BUN/CREAT (test code = 2235) 9 RATIO SODIUM (test code = 2231) 145 MEQ/L POTASSIUM (test code = 2228) 4.5 MEQ/L CHLORIDE (test code = 2215) 103 MEQ/L CARBON DIOXIDE (test code = 2206) 28 MEQ/L CALCIUM (test code = 2209) 9.8 MG/DL PROTEIN, TOTAL (test code = 2229) 7.7 G/DL ALBUMIN (test code = 2201) 4.5 G/DL CALC GLOBULIN (test code = 2240) 3.2 G/DL CALC A/G RATIO (test code = 2234) 1.4 RATIO BILIRUBIN, TOTAL (test code = 2207) 0.3 MG/DL ALKALINE PHOSPHATASE (test code = 2204) 109 U/L AST (test code = 2218) 14 U/L ALT (test code = 2219) 11 U/L Topher BrownLIPID [id number] 00:00:00* Test Item Value Reference Range Interpretation Comme nts CHOLESTEROL (test code = 2210) 270 MG/DL TRIGLYCERIDES (test code = 2232) 216 MG/DL HDL CHOLESTEROL (test code = 2220) 35 MG/DL CALC LDL CHOL (test code = 2237) 192 MG/DL RISK RATIO LDL/HDL (test cod e = 2238) 5.48 RATIO Topher BrownACUTE HEPATITIS [id number] 00:00:00* Test Item Value Reference Range Interpretation Comme nts HEPATITIS A IgM (test code = 40629) NON-REACTIVE HEPATITIS B CORE IgM (test c ode = 4644) NON-REACTIVE HEPATITIS B SURF AG (test co de = 3991) NON-REACTIVE HEPATITIS C ANTIBODY (test c ode = 8483) NON-REACTIVE INTERPRETATION HEPATITIS A: (test code = 2552) (NOTE) INTERPRETATION HEPATITIS B: (test code = 18752) (NOTE) INTERPRETATION HEPATITIS C: (test code = 41451) (NOTE) HEMOGLOBIN [id number] 00:00:00* Test Item Value Reference Range Interpretation Comme nts HEMOGLOBIN A1c (test code = 63924) 6.5 % COMPREHENSIVE METABOLIC [id number] 00:00:00* Test Item Value Reference Range Interpretation Comme nts GLUCOSE (test code = 2217) 132 MG/DL BUN (test code = 2208) 7 MG/DL CREATININE (test code = 2214) 0.74 MG/DL eGFR AMER. (test cod e = 56664) 100 ML/MIN/1.73 eGFR NON- AMER. (test code = 88477) 86 ML/MIN/1.73 CALC BUN/CREAT (test code = 2235) 9 RATIO SODIUM (test code = 2231) 145 MEQ/L POTASSIUM (test code = 2228) 4.5 MEQ/L CHLORIDE (test code = 2215) 103 MEQ/L CARBON DIOXIDE (test code = 2206) 28 MEQ/L CALCIUM (test code = 2209) 9.8 MG/DL PROTEIN, TOTAL (test code = 2229) 7.7 G/DL ALBUMIN (test code = 2201) 4.5 G/DL CALC GLOBULIN (test code = 2240) 3.2 G/DL CALC A/G RATIO (test code = 2234) 1.4 RATIO BILIRUBIN, TOTAL (test code = 2207) 0.3 MG/DL ALKALINE PHOSPHATASE (test code = 2204) 109 U/L AST (test code = 2218) 14 U/L ALT (test code = 2219) 11 U/L LIPID [id number] 00:00:00* Test Item Value Reference Range Interpretation Comme nts CHOLESTEROL (test code = 2210) 270 MG/DL TRIGLYCERIDES (test code = 2232) 216 MG/DL HDL CHOLESTEROL (test code = 2220) 35 MG/DL CALC LDL CHOL (test code = 2237) 192 MG/DL RISK RATIO LDL/HDL (test cod e = 2238) 5.48 RATIO ACUTE HEPATITIS [id number] 00:00:00* Test Item Value Reference Range Interpretation Comme nts HEPATITIS A IgM (test code = 32204) NON-REACTIVE HEPATITIS B CORE IgM (test c ode = 4667) NON-REACTIVE HEPATITIS B SURF AG (test co de = 6298) NON-REACTIVE HEPATITIS C ANTIBODY (test c ode = 7756) NON-REACTIVE INTERPRETATION HEPATITIS A: (test code = 2552) (NOTE) INTERPRETATION HEPATITIS B: (test code = 07766) (NOTE) INTERPRETATION HEPATITIS C: (test code = 95852) (NOTE) HEMOGLOBIN [id number] 00:00:00* Test Item Value Reference Range Interpretation Comme nts HEMOGLOBIN A1c (test code = 26001) 6.5 % COMPREHENSIVE METABOLIC [id number] 00:00:00* Test Item Value Reference Range Interpretation Comme nts GLUCOSE (test code = 2217) 132 MG/DL BUN (test code = 2208) 7 MG/DL CREATININE (test code = 2214) 0.74 MG/DL eGFR AMER. (test cod e = 07236) 100 ML/MIN/1.73 eGFR NON- AMER. (test code = 22264) 86 ML/MIN/1.73 CALC BUN/CREAT (test code = 2235) 9 RATIO SODIUM (test code = 2231) 145 MEQ/L POTASSIUM (test code = 2228) 4.5 MEQ/L CHLORIDE (test code = 2215) 103 MEQ/L CARBON DIOXIDE (test code = 2206) 28 MEQ/L CALCIUM (test code = 2209) 9.8 MG/DL PROTEIN, TOTAL (test code = 2229) 7.7 G/DL ALBUMIN (test code = 2201) 4.5 G/DL CALC GLOBULIN (test code = 2240) 3.2 G/DL CALC A/G RATIO (test code = 2234) 1.4 RATIO BILIRUBIN, TOTAL (test code = 2207) 0.3 MG/DL ALKALINE PHOSPHATASE (test code = 2204) 109 U/L AST (test code = 2218) 14 U/L ALT (test code = 2219) 11 U/L LIPID [id number] 00:00:00* Test Item Value Reference Range Interpretation Comme nts CHOLESTEROL (test code = 2210) 270 MG/DL TRIGLYCERIDES (test code = 2232) 216 MG/DL HDL CHOLESTEROL (test code = 2220) 35 MG/DL CALC LDL CHOL (test code = 2237) 192 MG/DL RISK RATIO LDL/HDL (test cod e = 2238) 5.48 RATIO ACUTE HEPATITIS [id number] 00:00:00* Test Item Value Reference Range Interpretation Comme nts HEPATITIS A IgM (test code = 49002) NON-REACTIVE HEPATITIS B CORE IgM (test c ode = 4644) NON-REACTIVE HEPATITIS B SURF AG (test co de = 1659) NON-REACTIVE HEPATITIS C ANTIBODY (test c ode = 3768) NON-REACTIVE INTERPRETATION HEPATITIS A: (test code = 2552) (NOTE) INTERPRETATION HEPATITIS B: (test code = 96698) (NOTE) INTERPRETATION HEPATITIS C: (test code = 70571) (NOTE) HEMOGLOBIN [id number] 00:00:00* Test Item Value Reference Range Interpretation Comme nts HEMOGLOBIN A1c (test code = 72201) 6.5 % COMPREHENSIVE METABOLIC [id number] 00:00:00* Test Item Value Reference Range Interpretation Comme nts GLUCOSE (test code = 2217) 132 MG/DL BUN (test code = 2208) 7 MG/DL CREATININE (test code = 2214) 0.74 MG/DL eGFR AMER. (test cod e = 91391) 100 ML/MIN/1.73 eGFR NON- AMER. (test code = 77720) 86 ML/MIN/1.73 CALC BUN/CREAT (test code = 2235) 9 RATIO SODIUM (test code = 2231) 145 MEQ/L POTASSIUM (test code = 2228) 4.5 MEQ/L CHLORIDE (test code = 2215) 103 MEQ/L CARBON DIOXIDE (test code = 2206) 28 MEQ/L CALCIUM (test code = 2209) 9.8 MG/DL PROTEIN, TOTAL (test code = 2229) 7.7 G/DL ALBUMIN (test code = 2201) 4.5 G/DL CALC GLOBULIN (test code = 2240) 3.2 G/DL CALC A/G RATIO (test code = 2234) 1.4 RATIO BILIRUBIN, TOTAL (test code = 2207) 0.3 MG/DL ALKALINE PHOSPHATASE (test code = 2204) 109 U/L AST (test code = 2218) 14 U/L ALT (test code = 2219) 11 U/L LIPID [id number] 00:00:00* Test Item Value Reference Range Interpretation Comme nts CHOLESTEROL (test code = 2210) 270 MG/DL TRIGLYCERIDES (test code = 2232) 216 MG/DL HDL CHOLESTEROL (test code = 2220) 35 MG/DL CALC LDL CHOL (test code = 2237) 192 MG/DL RISK RATIO LDL/HDL (test cod e = 2238) 5.48 RATIO ACUTE HEPATITIS [id number] 00:00:00* Test Item Value Reference Range Interpretation Comme nts HEPATITIS A IgM (test code = 33159) NON-REACTIVE HEPATITIS B CORE IgM (test c ode = 4644) NON-REACTIVE HEPATITIS B SURF AG (test co de = 2739) NON-REACTIVE HEPATITIS C ANTIBODY (test c ode = 4675) NON-REACTIVE INTERPRETATION HEPATITIS A: (test code = 2552) (NOTE) INTERPRETATION HEPATITIS B: (test code = 50886) (NOTE) INTERPRETATION HEPATITIS C: (test code = 52354) (NOTE) HEMOGLOBIN [id number] 00:00:00* Test Item Value Reference Range Interpretation Comme nts HEMOGLOBIN A1c (test code = 98790) 6.5 % COMPREHENSIVE METABOLIC [id number] 00:00:00* Test Item Value Reference Range Interpretation Comme nts GLUCOSE (test code = 2217) 132 MG/DL BUN (test code = 2208) 7 MG/DL CREATININE (test code = 2214) 0.74 MG/DL eGFR AMER. (test cod e = 84961) 100 ML/MIN/1.73 eGFR NON- AMER. (test code = 61247) 86 ML/MIN/1.73 CALC BUN/CREAT (test code = 2235) 9 RATIO SODIUM (test code = 2231) 145 MEQ/L POTASSIUM (test code = 2228) 4.5 MEQ/L CHLORIDE (test code = 2215) 103 MEQ/L CARBON DIOXIDE (test code = 2206) 28 MEQ/L CALCIUM (test code = 2209) 9.8 MG/DL PROTEIN, TOTAL (test code = 2229) 7.7 G/DL ALBUMIN (test code = 2201) 4.5 G/DL CALC GLOBULIN (test code = 2240) 3.2 G/DL CALC A/G RATIO (test code = 2234) 1.4 RATIO BILIRUBIN, TOTAL (test code = 2207) 0.3 MG/DL ALKALINE PHOSPHATASE (test code = 2204) 109 U/L AST (test code = 2218) 14 U/L ALT (test code = 2219) 11 U/L LIPID [id number] 00:00:00* Test Item Value Reference Range Interpretation Comme nts CHOLESTEROL (test code = 2210) 270 MG/DL TRIGLYCERIDES (test code = 2232) 216 MG/DL HDL CHOLESTEROL (test code = 2220) 35 MG/DL CALC LDL CHOL (test code = 2237) 192 MG/DL RISK RATIO LDL/HDL (test cod e = 2238) 5.48 RATIO ACUTE HEPATITIS [id number] 00:00:00* Test Item Value Reference Range Interpretation Comme nts HEPATITIS A IgM (test code = 61184) NON-REACTIVE HEPATITIS B CORE IgM (test c ode = 4644) NON-REACTIVE HEPATITIS B SURF AG (test co de = 2739) NON-REACTIVE HEPATITIS C ANTIBODY (test c ode = 4675) NON-REACTIVE INTERPRETATION HEPATITIS A: (test code = 2552) (NOTE) INTERPRETATION HEPATITIS B: (test code = 33636) (NOTE) INTERPRETATION HEPATITIS C: (test code = 30248) (NOTE) HEMOGLOBIN [id number] 00:00:00* Test Item Value Reference Range Interpretation Comme nts HEMOGLOBIN A1c (test code = 39678) 6.5 % HEMOGLOBIN [id number] 00:00:00* Test Item Value Reference Range Interpretation Comme nts HEMOGLOBIN A1c (test code = 74692) 6.5 % COMPREHENSIVE METABOLIC [id number] 00:00:00* Test Item Value Reference Range Interpretation Comme nts GLUCOSE (test code = 2217) 132 MG/DL BUN (test code = 2208) 7 MG/DL CREATININE (test code = 2214) 0.74 MG/DL eGFR AMER. (test cod e = 33516) 100 ML/MIN/1.73 eGFR NON- AMER. (test code = 67044) 86 ML/MIN/1.73 CALC BUN/CREAT (test code = 2235) 9 RATIO SODIUM (test code = 2231) 145 MEQ/L POTASSIUM (test code = 2228) 4.5 MEQ/L CHLORIDE (test code = 2215) 103 MEQ/L CARBON DIOXIDE (test code = 2206) 28 MEQ/L CALCIUM (test code = 2209) 9.8 MG/DL PROTEIN, TOTAL (test code = 2229) 7.7 G/DL ALBUMIN (test code = 2201) 4.5 G/DL CALC GLOBULIN (test code = 2240) 3.2 G/DL CALC A/G RATIO (test code = 2234) 1.4 RATIO BILIRUBIN, TOTAL (test code = 2207) 0.3 MG/DL ALKALINE PHOSPHATASE (test code = 2204) 109 U/L AST (test code = 2218) 14 U/L ALT (test code = 2219) 11 U/L LIPID [id number] 00:00:00* Test Item Value Reference Range Interpretation Comme nts CHOLESTEROL (test code = 2210) 270 MG/DL TRIGLYCERIDES (test code = 2232) 216 MG/DL HDL CHOLESTEROL (test code = 2220) 35 MG/DL CALC LDL CHOL (test code = 2237) 192 MG/DL RISK RATIO LDL/HDL (test cod e = 2238) 5.48 RATIO ACUTE HEPATITIS [id number] 00:00:00* Test Item Value Reference Range Interpretation Comme nts HEPATITIS A IgM (test code = 32835) NON-REACTIVE HEPATITIS B CORE IgM (test c ode = 4644) NON-REACTIVE HEPATITIS B SURF AG (test co de = 2739) NON-REACTIVE HEPATITIS C ANTIBODY (test c ode = 4675) NON-REACTIVE INTERPRETATION HEPATITIS A: (test code = 2552) (NOTE) INTERPRETATION HEPATITIS B: (test code = 65510) (NOTE) INTERPRETATION HEPATITIS C: (test code = 91503) (NOTE) COMPREHENSIVE METABOLIC [id number] 00:00:00* Test Item Value Reference Range Interpretation Comme nts GLUCOSE (test code = 2217) 132 MG/DL BUN (test code = 2208) 7 MG/DL CREATININE (test code = 2214) 0.74 MG/DL eGFR AMER. (test cod e = 61227) 100 ML/MIN/1.73 eGFR NON- AMER. (test code = 45511) 86 ML/MIN/1.73 CALC BUN/CREAT (test code = 2235) 9 RATIO SODIUM (test code = 2231) 145 MEQ/L POTASSIUM (test code = 2228) 4.5 MEQ/L CHLORIDE (test code = 2215) 103 MEQ/L CARBON DIOXIDE (test code = 2206) 28 MEQ/L CALCIUM (test code = 2209) 9.8 MG/DL PROTEIN, TOTAL (test code = 2229) 7.7 G/DL ALBUMIN (test code = 2201) 4.5 G/DL CALC GLOBULIN (test code = 2240) 3.2 G/DL CALC A/G RATIO (test code = 2234) 1.4 RATIO BILIRUBIN, TOTAL (test code = 2207) 0.3 MG/DL ALKALINE PHOSPHATASE (test code = 2204) 109 U/L AST (test code = 2218) 14 U/L ALT (test code = 2219) 11 U/L LIPID [id number] 00:00:00* Test Item Value Reference Range Interpretation Comme nts CHOLESTEROL (test code = 2210) 270 MG/DL TRIGLYCERIDES (test code = 2232) 216 MG/DL HDL CHOLESTEROL (test code = 2220) 35 MG/DL CALC LDL CHOL (test code = 2237) 192 MG/DL RISK RATIO LDL/HDL (test cod e = 2238) 5.48 RATIO ACUTE HEPATITIS [id number] 00:00:00* Test Item Value Reference Range Interpretation Comme nts HEPATITIS A IgM (test code = 03441) NON-REACTIVE HEPATITIS B CORE IgM (test c ode = 4644) NON-REACTIVE HEPATITIS B SURF AG (test co de = 2739) NON-REACTIVE HEPATITIS C ANTIBODY (test c ode = 4619) NON-REACTIVE INTERPRETATION HEPATITIS A: (test code = 2552) (NOTE) INTERPRETATION HEPATITIS B: (test code = 11205) (NOTE) INTERPRETATION HEPATITIS C: (test code = 54239) (NOTE) HEMOGLOBIN [id number] 00:00:00* Test Item Value Reference Range Interpretation Comme nts HEMOGLOBIN A1c (test code = 87560) 6.5 % COMPREHENSIVE METABOLIC [id number] 00:00:00* Test Item Value Reference Range Interpretation Comme nts GLUCOSE (test code = 2217) 132 MG/DL BUN (test code = 2208) 7 MG/DL CREATININE (test code = 2214) 0.74 MG/DL eGFR AMER. (test cod e = 92482) 100 ML/MIN/1.73 eGFR NON- AMER. (test code = 07347) 86 ML/MIN/1.73 CALC BUN/CREAT (test code = 2235) 9 RATIO SODIUM (test code = 2231) 145 MEQ/L POTASSIUM (test code = 2228) 4.5 MEQ/L CHLORIDE (test code = 2215) 103 MEQ/L CARBON DIOXIDE (test code = 2206) 28 MEQ/L CALCIUM (test code = 2209) 9.8 MG/DL PROTEIN, TOTAL (test code = 2229) 7.7 G/DL ALBUMIN (test code = 2201) 4.5 G/DL CALC GLOBULIN (test code = 2240) 3.2 G/DL CALC A/G RATIO (test code = 2234) 1.4 RATIO BILIRUBIN, TOTAL (test code = 2207) 0.3 MG/DL ALKALINE PHOSPHATASE (test code = 2204) 109 U/L AST (test code = 2218) 14 U/L ALT (test code = 2219) 11 U/L LIPID [id number] 00:00:00* Test Item Value Reference Range Interpretation Comme nts CHOLESTEROL (test code = 2210) 270 MG/DL TRIGLYCERIDES (test code = 2232) 216 MG/DL HDL CHOLESTEROL (test code = 2220) 35 MG/DL CALC LDL CHOL (test code = 2237) 192 MG/DL RISK RATIO LDL/HDL (test cod e = 2238) 5.48 RATIO ACUTE HEPATITIS [id number] 00:00:00* Test Item Value Reference Range Interpretation Comme nts HEPATITIS A IgM (test code = 93133) NON-REACTIVE HEPATITIS B CORE IgM (test c ode = 4644) NON-REACTIVE HEPATITIS B SURF AG (test co de = 1549) NON-REACTIVE HEPATITIS C ANTIBODY (test c ode = 4686) NON-REACTIVE INTERPRETATION HEPATITIS A: (test code = 2552) (NOTE) INTERPRETATION HEPATITIS B: (test code = 22790) (NOTE) INTERPRETATION HEPATITIS C: (test code = 49161) (NOTE) HEMOGLOBIN [id number] 00:00:00* Test Item Value Reference Range Interpretation Comme nts HEMOGLOBIN A1c (test code = 48009) 6.5 % COMPREHENSIVE METABOLIC [id number] 00:00:00* Test Item Value Reference Range Interpretation Comme nts GLUCOSE (test code = 2217) 132 MG/DL BUN (test code = 2208) 7 MG/DL CREATININE (test code = 2214) 0.74 MG/DL eGFR AMER. (test cod e = 58271) 100 ML/MIN/1.73 eGFR NON- AMER. (test code = 84104) 86 ML/MIN/1.73 CALC BUN/CREAT (test code = 2235) 9 RATIO SODIUM (test code = 2231) 145 MEQ/L POTASSIUM (test code = 2228) 4.5 MEQ/L CHLORIDE (test code = 2215) 103 MEQ/L CARBON DIOXIDE (test code = 2206) 28 MEQ/L CALCIUM (test code = 2209) 9.8 MG/DL PROTEIN, TOTAL (test code = 2229) 7.7 G/DL ALBUMIN (test code = 2201) 4.5 G/DL CALC GLOBULIN (test code = 2240) 3.2 G/DL CALC A/G RATIO (test code = 2234) 1.4 RATIO BILIRUBIN, TOTAL (test code = 2207) 0.3 MG/DL ALKALINE PHOSPHATASE (test code = 2204) 109 U/L AST (test code = 2218) 14 U/L ALT (test code = 2219) 11 U/L LIPID [id number] 00:00:00* Test Item Value Reference Range Interpretation Comme nts CHOLESTEROL (test code = 2210) 270 MG/DL TRIGLYCERIDES (test code = 2232) 216 MG/DL HDL CHOLESTEROL (test code = 2220) 35 MG/DL CALC LDL CHOL (test code = 2237) 192 MG/DL RISK RATIO LDL/HDL (test cod e = 2238) 5.48 RATIO HEMOGLOBIN [id number] 00:00:00* Test Item Value Reference Range Interpretation Comme nts HEMOGLOBIN A1c (test code = 89312) 6.5 % Topher BrownACUTE HEPATITIS [id number] 00:00:00* Test Item Value Reference Range Interpretation Comme nts HEPATITIS A IgM (test code = 63020) NON-REACTIVE HEPATITIS B CORE IgM (test c ode = 4680) NON-REACTIVE HEPATITIS B SURF AG (test co de = 2739) NON-REACTIVE HEPATITIS C ANTIBODY (test c ode = 4695) NON-REACTIVE INTERPRETATION HEPATITIS A: (test code = 2552) (NOTE) INTERPRETATION HEPATITIS B: (test code = 60799) (NOTE) INTERPRETATION HEPATITIS C: (test code = 86284) (NOTE) Topher BrownHEMOGLOBIN [id number] 00:00:00* Test Item Value Reference Range Interpretation Comme nts HEMOGLOBIN A1c (test code = 70256) 6.5 % Topher BrownCOMPREHENSIVE METABOLIC [id number] 00:00:00* Test Item Value Reference Range Interpretation Comme nts GLUCOSE (test code = 2217) 132 MG/DL BUN (test code = 2208) 7 MG/DL CREATININE (test code = 2214) 0.74 MG/DL eGFR AMER. (test cod e = 09542) 100 ML/MIN/1.73 eGFR NON- AMER. (test code = 88297) 86 ML/MIN/1.73 CALC BUN/CREAT (test code = 2235) 9 RATIO SODIUM (test code = 2231) 145 MEQ/L POTASSIUM (test code = 2228) 4.5 MEQ/L CHLORIDE (test code = 2215) 103 MEQ/L CARBON DIOXIDE (test code = 2206) 28 MEQ/L CALCIUM (test code = 2209) 9.8 MG/DL PROTEIN, TOTAL (test code = 2229) 7.7 G/DL ALBUMIN (test code = 2201) 4.5 G/DL CALC GLOBULIN (test code = 2240) 3.2 G/DL CALC A/G RATIO (test code = 2234) 1.4 RATIO BILIRUBIN, TOTAL (test code = 2207) 0.3 MG/DL ALKALINE PHOSPHATASE (test code = 2204) 109 U/L AST (test code = 2218) 14 U/L ALT (test code = 2219) 11 U/L Topher BrownLIPID [id number] 00:00:00* Test Item Value Reference Range Interpretation Comme nts CHOLESTEROL (test code = 2210) 270 MG/DL TRIGLYCERIDES (test code = 2232) 216 MG/DL HDL CHOLESTEROL (test code = 2220) 35 MG/DL CALC LDL CHOL (test code = 2237) 192 MG/DL RISK RATIO LDL/HDL (test cod e = 2238) 5.48 RATIO Topher BrwonACUTE HEPATITIS [id number] 00:00:00* Test Item Value Reference Range Interpretation Comme nts HEPATITIS A IgM (test code = 00217) NON-REACTIVE HEPATITIS B CORE IgM (test c ode = 4631) NON-REACTIVE HEPATITIS B SURF AG (test co de = 4632) NON-REACTIVE HEPATITIS C ANTIBODY (test c ode = 9546) NON-REACTIVE INTERPRETATION HEPATITIS A: (test code = 2552) (NOTE) INTERPRETATION HEPATITIS B: (test code = 10692) (NOTE) INTERPRETATION HEPATITIS C: (test code = 81328) (NOTE) Topher BrownHEMOGLOBIN [id number] 00:00:00* Test Item Value Reference Range Interpretation Comme nts HEMOGLOBIN A1c (test code = 60562) 6.5 % Topher BrownCOMPREHENSIVE METABOLIC [id number] 00:00:00* Test Item Value Reference Range Interpretation Comme nts GLUCOSE (test code = 2217) 132 MG/DL BUN (test code = 2208) 7 MG/DL CREATININE (test code = 2214) 0.74 MG/DL eGFR AMER. (test cod e = 21962) 100 ML/MIN/1.73 eGFR NON- AMER. (test code = 41560) 86 ML/MIN/1.73 CALC BUN/CREAT (test code = 2235) 9 RATIO SODIUM (test code = 2231) 145 MEQ/L POTASSIUM (test code = 2228) 4.5 MEQ/L CHLORIDE (test code = 2215) 103 MEQ/L CARBON DIOXIDE (test code = 2206) 28 MEQ/L CALCIUM (test code = 2209) 9.8 MG/DL PROTEIN, TOTAL (test code = 2229) 7.7 G/DL ALBUMIN (test code = 2201) 4.5 G/DL CALC GLOBULIN (test code = 2240) 3.2 G/DL CALC A/G RATIO (test code = 2234) 1.4 RATIO BILIRUBIN, TOTAL (test code = 2207) 0.3 MG/DL ALKALINE PHOSPHATASE (test code = 2204) 109 U/L AST (test code = 2218) 14 U/L ALT (test code = 2219) 11 U/L Topher Cam AustinLIPID [id number] 00:00:00* Test Item Value Reference Range Interpretation Comme nts CHOLESTEROL (test code = 2210) 270 MG/DL TRIGLYCERIDES (test code = 2232) 216 MG/DL HDL CHOLESTEROL (test code = 2220) 35 MG/DL CALC LDL CHOL (test code = 2237) 192 MG/DL RISK RATIO LDL/HDL (test cod e = 2238) 5.48 RATIO Topher BrownCOMPREHENSIVE METABOLIC [id number] 00:00:00* Test Item Value Reference Range Interpretation Comme nts GLUCOSE (test code = 2217) 132 MG/DL BUN (test code = 2208) 7 MG/DL CREATININE (test code = 2214) 0.74 MG/DL eGFR AMER. (test cod e = 61344) 100 ML/MIN/1.73 eGFR NON- AMER. (test code = 08187) 86 ML/MIN/1.73 CALC BUN/CREAT (test code = 2235) 9 RATIO SODIUM (test code = 2231) 145 MEQ/L POTASSIUM (test code = 2228) 4.5 MEQ/L CHLORIDE (test code = 2215) 103 MEQ/L CARBON DIOXIDE (test code = 2206) 28 MEQ/L CALCIUM (test code = 2209) 9.8 MG/DL PROTEIN, TOTAL (test code = 2229) 7.7 G/DL ALBUMIN (test code = 2201) 4.5 G/DL CALC GLOBULIN (test code = 2240) 3.2 G/DL CALC A/G RATIO (test code = 2234) 1.4 RATIO BILIRUBIN, TOTAL (test code = 2207) 0.3 MG/DL ALKALINE PHOSPHATASE (test code = 2204) 109 U/L AST (test code = 2218) 14 U/L ALT (test code = 2219) 11 U/L Topher BrownACUTE HEPATITIS [id number] 00:00:00* Test Item Value Reference Range Interpretation Comme nts HEPATITIS A IgM (test code = 77384) NON-REACTIVE HEPATITIS B CORE IgM (test c ode = 4644) NON-REACTIVE HEPATITIS B SURF AG (test co de = 2739) NON-REACTIVE HEPATITIS C ANTIBODY (test c ode = 4606) NON-REACTIVE INTERPRETATION HEPATITIS A: (test code = 2552) (NOTE) INTERPRETATION HEPATITIS B: (test code = 73376) (NOTE) INTERPRETATION HEPATITIS C: (test code = 02751) (NOTE) Topher Cam KevinHEMOGLOBIN [id number] 00:00:00* Test Item Value Reference Range Interpretation Comme nts HEMOGLOBIN A1c (test code = 03699) 6.5 % Topher Cam KevinCOMPREHENSIVE METABOLIC [id number] 00:00:00* Test Item Value Reference Range Interpretation Comme nts GLUCOSE (test code = 2217) 132 MG/DL BUN (test code = 2208) 7 MG/DL CREATININE (test code = 2214) 0.74 MG/DL eGFR AMER. (test cod e = 19634) 100 ML/MIN/1.73 eGFR NON- AMER. (test code = 89124) 86 ML/MIN/1.73 CALC BUN/CREAT (test code = 2235) 9 RATIO SODIUM (test code = 2231) 145 MEQ/L POTASSIUM (test code = 2228) 4.5 MEQ/L CHLORIDE (test code = 2215) 103 MEQ/L CARBON DIOXIDE (test code = 2206) 28 MEQ/L CALCIUM (test code = 2209) 9.8 MG/DL PROTEIN, TOTAL (test code = 222) 7.7 G/DL ALBUMIN (test code = 2201) 4.5 G/DL CALC GLOBULIN (test code = 2240) 3.2 G/DL CALC A/G RATIO (test code = 2234) 1.4 RATIO BILIRUBIN, TOTAL (test code = 2207) 0.3 MG/DL ALKALINE PHOSPHATASE (test code = 2204) 109 U/L AST (test code = 2218) 14 U/L ALT (test code = 2219) 11 U/L Topher Cam MorganLIPID [id number] 00:00:00* Test Item Value Reference Range Interpretation Comme nts CHOLESTEROL (test code = 2210) 270 MG/DL TRIGLYCERIDES (test code = 2232) 216 MG/DL HDL CHOLESTEROL (test code = 2220) 35 MG/DL CALC LDL CHOL (test code = 2237) 192 MG/DL RISK RATIO LDL/HDL (test cod e = 2238) 5.48 RATIO Topher Cam MorganLIPID [id number] 00:00:00* Test Item Value Reference Range Interpretation Comme nts CHOLESTEROL (test code = 2210) 270 MG/DL TRIGLYCERIDES (test code = 2232) 216 MG/DL HDL CHOLESTEROL (test code = 2220) 35 MG/DL CALC LDL CHOL (test code = 2237) 192 MG/DL RISK RATIO LDL/HDL (test cod e = 2238) 5.48 RATIO Topher Cam MorganACUTE HEPATITIS [id number] 00:00:00* Test Item Value Reference Range Interpretation Comme nts HEPATITIS A IgM (test code = 54874) NON-REACTIVE HEPATITIS B CORE IgM (test c ode = 4644) NON-REACTIVE HEPATITIS B SURF AG (test co de = 2739) NON-REACTIVE HEPATITIS C ANTIBODY (test c ode = 4675) NON-REACTIVE INTERPRETATION HEPATITIS A: (test code = 2552) (NOTE) INTERPRETATION HEPATITIS B: (test code = 20325) (NOTE) INTERPRETATION HEPATITIS C: (test code = 81609) (NOTE) Topher BrownACUTE HEPATITIS [id number] 00:00:00* Test Item Value Reference Range Interpretation Comme nts HEPATITIS A IgM (test code = 25355) NON-REACTIVE HEPATITIS B CORE IgM (test c ode = 4644) NON-REACTIVE HEPATITIS B SURF AG (test co de = 2739) NON-REACTIVE HEPATITIS C ANTIBODY (test c ode = 4675) NON-REACTIVE INTERPRETATION HEPATITIS A: (test code = 2552) (NOTE) INTERPRETATION HEPATITIS B: (test code = 53784) (NOTE) INTERPRETATION HEPATITIS C: (test code = 00036) (NOTE) Topher BrownHEMOGLOBIN [id number] 00:00:00* Test Item Value Reference Range Interpretation Comme nts HEMOGLOBIN A1c (test code = 63549) 6.5 % Topher BrownCOMPREHENSIVE METABOLIC [id number] 00:00:00* Test Item Value Reference Range Interpretation Comme nts GLUCOSE (test code = 2217) 132 MG/DL BUN (test code = 2208) 7 MG/DL CREATININE (test code = 2214) 0.74 MG/DL eGFR AMER. (test cod e = 08994) 100 ML/MIN/1.73 eGFR NON- AMER. (test code = 77337) 86 ML/MIN/1.73 CALC BUN/CREAT (test code = 2235) 9 RATIO SODIUM (test code = 2231) 145 MEQ/L POTASSIUM (test code = 2228) 4.5 MEQ/L CHLORIDE (test code = 2215) 103 MEQ/L CARBON DIOXIDE (test code = 2206) 28 MEQ/L CALCIUM (test code = 2209) 9.8 MG/DL PROTEIN, TOTAL (test code = 2229) 7.7 G/DL ALBUMIN (test code = 2201) 4.5 G/DL CALC GLOBULIN (test code = 2240) 3.2 G/DL CALC A/G RATIO (test code = 2234) 1.4 RATIO BILIRUBIN, TOTAL (test code = 2207) 0.3 MG/DL ALKALINE PHOSPHATASE (test code = 2204) 109 U/L AST (test code = 2218) 14 U/L ALT (test code = 2219) 11 U/L Topher BrownLIPID [id number] 00:00:00* Test Item Value Reference Range Interpretation Comme nts CHOLESTEROL (test code = 2210) 270 MG/DL TRIGLYCERIDES (test code = 2232) 216 MG/DL HDL CHOLESTEROL (test code = 2220) 35 MG/DL CALC LDL CHOL (test code = 2237) 192 MG/DL RISK RATIO LDL/HDL (test cod e = 2238) 5.48 RATIO Topher BrownACUTE HEPATITIS [id number] 00:00:00* Test Item Value Reference Range Interpretation Comme nts HEPATITIS A IgM (test code = 48645) NON-REACTIVE HEPATITIS B CORE IgM (test c ode = 4644) NON-REACTIVE HEPATITIS B SURF AG (test co de = 2739) NON-REACTIVE HEPATITIS C ANTIBODY (test c ode = 4675) NON-REACTIVE INTERPRETATION HEPATITIS A: (test code = 2552) (NOTE) INTERPRETATION HEPATITIS B: (test code = 82228) (NOTE) INTERPRETATION HEPATITIS C: (test code = 39375) (NOTE) Topher BrownHEMOGLOBIN [id number] 00:00:00* Test Item Value Reference Range Interpretation Comme nts HEMOGLOBIN A1c (test code = 49952) 6.5 % Topher BrownCOMPREHENSIVE METABOLIC [id number] 00:00:00* Test Item Value Reference Range Interpretation Comme nts GLUCOSE (test code = 2217) 132 MG/DL BUN (test code = 2208) 7 MG/DL CREATININE (test code = 2214) 0.74 MG/DL eGFR AMER. (test cod e = 10380) 100 ML/MIN/1.73 eGFR NON- AMER. (test code = 26735) 86 ML/MIN/1.73 CALC BUN/CREAT (test code = 2235) 9 RATIO SODIUM (test code = 2231) 145 MEQ/L POTASSIUM (test code = 2228) 4.5 MEQ/L CHLORIDE (test code = 2215) 103 MEQ/L CARBON DIOXIDE (test code = 2206) 28 MEQ/L CALCIUM (test code = 2209) 9.8 MG/DL PROTEIN, TOTAL (test code = 2229) 7.7 G/DL ALBUMIN (test code = 2201) 4.5 G/DL CALC GLOBULIN (test code = 2240) 3.2 G/DL CALC A/G RATIO (test code = 2234) 1.4 RATIO BILIRUBIN, TOTAL (test code = 2207) 0.3 MG/DL ALKALINE PHOSPHATASE (test code = 2204) 109 U/L AST (test code = 2218) 14 U/L ALT (test code = 2219) 11 U/L Topher BrownLIPID [id number] 00:00:00* Test Item Value Reference Range Interpretation Comme nts CHOLESTEROL (test code = 2210) 270 MG/DL TRIGLYCERIDES (test code = 2232) 216 MG/DL HDL CHOLESTEROL (test code = 2220) 35 MG/DL CALC LDL CHOL (test code = 2237) 192 MG/DL RISK RATIO LDL/HDL (test cod e = 2238) 5.48 RATIO Topher BrownACUTE HEPATITIS [id number] 00:00:00* Test Item Value Reference Range Interpretation Comme nts HEPATITIS A IgM (test code = 88467) NON-REACTIVE HEPATITIS B CORE IgM (test c ode = 4644) NON-REACTIVE HEPATITIS B SURF AG (test co de = 2739) NON-REACTIVE HEPATITIS C ANTIBODY (test c ode = 4621) NON-REACTIVE INTERPRETATION HEPATITIS A: (test code = 2552) (NOTE) INTERPRETATION HEPATITIS B: (test code = 34734) (NOTE) INTERPRETATION HEPATITIS C: (test code = 01362) (NOTE) Topher BrownHEMOGLOBIN [id number] 00:00:00* Test Item Value Reference Range Interpretation Comme nts HEMOGLOBIN A1c (test code = 67923) 6.5 % Topher BrownCOMPREHENSIVE METABOLIC [id number] 00:00:00* Test Item Value Reference Range Interpretation Comme nts GLUCOSE (test code = 2217) 132 MG/DL BUN (test code = 2208) 7 MG/DL CREATININE (test code = 2214) 0.74 MG/DL eGFR AMER. (test cod e = 83755) 100 ML/MIN/1.73 eGFR NON- AMER. (test code = 89155) 86 ML/MIN/1.73 CALC BUN/CREAT (test code = 2235) 9 RATIO SODIUM (test code = 2231) 145 MEQ/L POTASSIUM (test code = 2228) 4.5 MEQ/L CHLORIDE (test code = 2215) 103 MEQ/L CARBON DIOXIDE (test code = 2206) 28 MEQ/L CALCIUM (test code = 2209) 9.8 MG/DL PROTEIN, TOTAL (test code = 2229) 7.7 G/DL ALBUMIN (test code = 2201) 4.5 G/DL CALC GLOBULIN (test code = 2240) 3.2 G/DL CALC A/G RATIO (test code = 2234) 1.4 RATIO BILIRUBIN, TOTAL (test code = 2207) 0.3 MG/DL ALKALINE PHOSPHATASE (test code = 2204) 109 U/L AST (test code = 2218) 14 U/L ALT (test code = 2219) 11 U/L Topher BrownLIPID [id number] 00:00:00* Test Item Value Reference Range Interpretation Comme nts CHOLESTEROL (test code = 2210) 270 MG/DL TRIGLYCERIDES (test code = 2232) 216 MG/DL HDL CHOLESTEROL (test code = 2220) 35 MG/DL CALC LDL CHOL (test code = 2237) 192 MG/DL RISK RATIO LDL/HDL (test cod e = 2238) 5.48 RATIO Topher BrownACUTE HEPATITIS [id number] 00:00:00* Test Item Value Reference Range Interpretation Comme nts HEPATITIS A IgM (test code = 87937) NON-REACTIVE HEPATITIS B CORE IgM (test c ode = 4644) NON-REACTIVE HEPATITIS B SURF AG (test co de = 2739) NON-REACTIVE HEPATITIS C ANTIBODY (test c ode = 4675) NON-REACTIVE INTERPRETATION HEPATITIS A: (test code = 2552) (NOTE) INTERPRETATION HEPATITIS B: (test code = 60042) (NOTE) INTERPRETATION HEPATITIS C: (test code = 60669) (NOTE) Topher BrownHEMOGLOBIN [id number] 00:00:00* Test Item Value Reference Range Interpretation Comme nts HEMOGLOBIN A1c (test code = 10116) 6.5 % Topher BrownCOMPREHENSIVE METABOLIC [id number] 00:00:00* Test Item Value Reference Range Interpretation Comme nts GLUCOSE (test code = 2217) 132 MG/DL BUN (test code = 2208) 7 MG/DL CREATININE (test code = 2214) 0.74 MG/DL eGFR AMER. (test cod e = 96934) 100 ML/MIN/1.73 eGFR NON- AMER. (test code = 21987) 86 ML/MIN/1.73 CALC BUN/CREAT (test code = 2235) 9 RATIO SODIUM (test code = 2231) 145 MEQ/L POTASSIUM (test code = 2228) 4.5 MEQ/L CHLORIDE (test code = 2215) 103 MEQ/L CARBON DIOXIDE (test code = 2206) 28 MEQ/L CALCIUM (test code = 2209) 9.8 MG/DL PROTEIN, TOTAL (test code = 2229) 7.7 G/DL ALBUMIN (test code = 2201) 4.5 G/DL CALC GLOBULIN (test code = 2240) 3.2 G/DL CALC A/G RATIO (test code = 2234) 1.4 RATIO BILIRUBIN, TOTAL (test code = 2207) 0.3 MG/DL ALKALINE PHOSPHATASE (test code = 2204) 109 U/L AST (test code = 2218) 14 U/L ALT (test code = 2219) 11 U/L Topher Cam KevinLIPID [id number] 00:00:00* Test Item Value Reference Range Interpretation Comme nts CHOLESTEROL (test code = 2210) 270 MG/DL TRIGLYCERIDES (test code = 2232) 216 MG/DL HDL CHOLESTEROL (test code = 2220) 35 MG/DL CALC LDL CHOL (test code = 2237) 192 MG/DL RISK RATIO LDL/HDL (test cod e = 2238) 5.48 RATIO Topher BrownACUTE HEPATITIS [id number] 00:00:00* Test Item Value Reference Range Interpretation Comme nts HEPATITIS A IgM (test code = 13431) NON-REACTIVE HEPATITIS B CORE IgM (test c ode = 4644) NON-REACTIVE HEPATITIS B SURF AG (test co de = 0273) NON-REACTIVE HEPATITIS C ANTIBODY (test c ode = 2324) NON-REACTIVE INTERPRETATION HEPATITIS A: (test code = 2552) (NOTE) INTERPRETATION HEPATITIS B: (test code = 06742) (NOTE) INTERPRETATION HEPATITIS C: (test code = 13363) (NOTE) Topher Cam [id number] 00:00:00* Test Item Value Reference Range Interpretation Comme nts LIPASE (test code = 8) 42 U/L Topher BrownCOMPREHENSIVE METABOLIC [id number] 00:00:00* Test Item Value Reference Range Interpretation Comme nts GLUCOSE (test code = 2217) 92 MG/DL BUN (test code = 2208) 6 MG/DL CREATININE (test code = 2214) 0.53 MG/DL eGFR AMER. (test cod e = 14367) 117 ML/MIN/1.73 eGFR NON- AMER. (test code = 36712) 101 ML/MIN/1.73 CALC BUN/CREAT (test code = 2235) 11 RATIO SODIUM (test code = 2231) 142 MEQ/L POTASSIUM (test code = 2228) 3.7 MEQ/L CHLORIDE (test code = 2215) 102 MEQ/L CARBON DIOXIDE (test code = 2206) 25 MEQ/L CALCIUM (test code = 2209) 9.2 MG/DL PROTEIN, TOTAL (test code = 2229) 6.5 G/DL ALBUMIN (test code = 2201) 3.4 G/DL CALC GLOBULIN (test code = 2240) 3.1 G/DL CALC A/G RATIO (test code = 2234) 1.1 RATIO BILIRUBIN, TOTAL (test code = 2207) 0.3 MG/DL ALKALINE PHOSPHATASE (test code = 2204) 85 U/L AST (test code = 2218) 11 U/L ALT (test code = 2219) 9 U/L Topher BrownCOMPREHENSIVE METABOLIC [id number] 00:00:00* Test Item Value Reference Range Interpretation Comme nts GLUCOSE (test code = 2217) 92 MG/DL BUN (test code = 2208) 6 MG/DL CREATININE (test code = 2214) 0.53 MG/DL eGFR AMER. (test cod e = 34752) 117 ML/MIN/1.73 eGFR NON- AMER. (test code = 07687) 101 ML/MIN/1.73 CALC BUN/CREAT (test code = 2235) 11 RATIO SODIUM (test code = 2231) 142 MEQ/L POTASSIUM (test code = 2228) 3.7 MEQ/L CHLORIDE (test code = 2215) 102 MEQ/L CARBON DIOXIDE (test code = 2206) 25 MEQ/L CALCIUM (test code = 2209) 9.2 MG/DL PROTEIN, TOTAL (test code = 2229) 6.5 G/DL ALBUMIN (test code = 2201) 3.4 G/DL CALC GLOBULIN (test code = 2240) 3.1 G/DL CALC A/G RATIO (test code = 2234) 1.1 RATIO BILIRUBIN, TOTAL (test code = 2207) 0.3 MG/DL ALKALINE PHOSPHATASE (test code = 220) 85 U/L AST (test code = 2218) 11 U/L ALT (test code = 2219) 9 U/L Topher BrownLIPID [id number] 00:00:00* Test Item Value Reference Range Interpretation Comme nts CHOLESTEROL (test code = 2210) 218 MG/DL TRIGLYCERIDES (test code = 2232) 376 MG/DL HDL CHOLESTEROL (test code = 0) 29 MG/DL CALC LDL CHOL (test code = 2236) 114 MG/DL RISK RATIO LDL/HDL (test cod e = 2238) 3.92 RATIO Topher BrownHEMOGLOBIN [id number] 00:00:00* Test Item Value Reference Range Interpretation Comme nts HEMOGLOBIN A1c (test code = 65361) 6.1 % Topher Cam [id number] 00:00:00* Test Item Value Reference Range Interpretation Comme nts AMYLASE (test code = 2204) 65 U/L [id number] 00:00:00* Test Item Value Reference Range Interpretation Comme nts LIPASE (test code = 2057) 42 U/L COMPREHENSIVE METABOLIC [id number] 00:00:00* Test Item Value Reference Range Interpretation Comme nts GLUCOSE (test code = 7) 92 MG/DL BUN (test code = 8) 6 MG/DL CREATININE (test code = 2214) 0.53 MG/DL eGFR AMER. (test cod e = 83912) 117 ML/MIN/1.73 eGFR NON- AMER. (test code = 86701) 101 ML/MIN/1.73 CALC BUN/CREAT (test code = 2235) 11 RATIO SODIUM (test code = 2231) 142 MEQ/L POTASSIUM (test code = 2228) 3.7 MEQ/L CHLORIDE (test code = 2215) 102 MEQ/L CARBON DIOXIDE (test code = 2206) 25 MEQ/L CALCIUM (test code = 2209) 9.2 MG/DL PROTEIN, TOTAL (test code = 2229) 6.5 G/DL ALBUMIN (test code = 2201) 3.4 G/DL CALC GLOBULIN (test code = 2240) 3.1 G/DL CALC A/G RATIO (test code = 2234) 1.1 RATIO BILIRUBIN, TOTAL (test code = 2207) 0.3 MG/DL ALKALINE PHOSPHATASE (test code = 2204) 85 U/L AST (test code = 2218) 11 U/L ALT (test code = 2219) 9 U/L LIPID [id number] 00:00:00* Test Item Value Reference Range Interpretation Comme nts CHOLESTEROL (test code = 2210) 218 MG/DL TRIGLYCERIDES (test code = 2232) 376 MG/DL HDL CHOLESTEROL (test code = 0) 29 MG/DL CALC LDL CHOL (test code = 2236) 114 MG/DL RISK RATIO LDL/HDL (test cod e = 2238) 3.92 RATIO HEMOGLOBIN [id number] 00:00:00* Test Item Value Reference Range Interpretation Comme nts HEMOGLOBIN A1c (test code = 87353) 6.1 % [id number] 00:00:00* Test Item Value Reference Range Interpretation Comme nts AMYLASE (test code = 2204) 65 U/L [id number] 00:00:00* Test Item Value Reference Range Interpretation Comme nts LIPASE (test code = 2057) 42 U/L COMPREHENSIVE METABOLIC [id number] 00:00:00* Test Item Value Reference Range Interpretation Comme nts GLUCOSE (test code = 7) 92 MG/DL BUN (test code = 2208) 6 MG/DL CREATININE (test code = 2214) 0.53 MG/DL eGFR AMER. (test cod e = 86657) 117 ML/MIN/1.73 eGFR NON- AMER. (test code = 95163) 101 ML/MIN/1.73 CALC BUN/CREAT (test code = 2235) 11 RATIO SODIUM (test code = 2231) 142 MEQ/L POTASSIUM (test code = 2228) 3.7 MEQ/L CHLORIDE (test code = 2215) 102 MEQ/L CARBON DIOXIDE (test code = 2206) 25 MEQ/L CALCIUM (test code = 2209) 9.2 MG/DL PROTEIN, TOTAL (test code = 2229) 6.5 G/DL ALBUMIN (test code = 2201) 3.4 G/DL CALC GLOBULIN (test code = 2240) 3.1 G/DL CALC A/G RATIO (test code = 2234) 1.1 RATIO BILIRUBIN, TOTAL (test code = 2207) 0.3 MG/DL ALKALINE PHOSPHATASE (test code = 2204) 85 U/L AST (test code = 2218) 11 U/L ALT (test code = 2219) 9 U/L LIPID [id number] 00:00:00* Test Item Value Reference Range Interpretation Comme nts CHOLESTEROL (test code = 2210) 218 MG/DL TRIGLYCERIDES (test code = 2232) 376 MG/DL HDL CHOLESTEROL (test code = 0) 29 MG/DL CALC LDL CHOL (test code = 2236) 114 MG/DL RISK RATIO LDL/HDL (test cod e = 2238) 3.92 RATIO HEMOGLOBIN [id number] 00:00:00* Test Item Value Reference Range Interpretation Comme nts HEMOGLOBIN A1c (test code = 76530) 6.1 % [id number] 00:00:00* Test Item Value Reference Range Interpretation Comme nts AMYLASE (test code = 2204) 65 U/L [id number] 00:00:00* Test Item Value Reference Range Interpretation Comme nts LIPASE (test code = 2057) 42 U/L COMPREHENSIVE METABOLIC [id number] 00:00:00* Test Item Value Reference Range Interpretation Comme nts GLUCOSE (test code = 7) 92 MG/DL BUN (test code = 2208) 6 MG/DL CREATININE (test code = 2214) 0.53 MG/DL eGFR AMER. (test cod e = 67262) 117 ML/MIN/1.73 eGFR NON- AMER. (test code = 04531) 101 ML/MIN/1.73 CALC BUN/CREAT (test code = 2235) 11 RATIO SODIUM (test code = 2231) 142 MEQ/L POTASSIUM (test code = 2228) 3.7 MEQ/L CHLORIDE (test code = 2215) 102 MEQ/L CARBON DIOXIDE (test code = 2206) 25 MEQ/L CALCIUM (test code = 2209) 9.2 MG/DL PROTEIN, TOTAL (test code = 2229) 6.5 G/DL ALBUMIN (test code = 2201) 3.4 G/DL CALC GLOBULIN (test code = 2240) 3.1 G/DL CALC A/G RATIO (test code = 2234) 1.1 RATIO BILIRUBIN, TOTAL (test code = 2207) 0.3 MG/DL ALKALINE PHOSPHATASE (test code = 2204) 85 U/L AST (test code = 2218) 11 U/L ALT (test code = 2219) 9 U/L LIPID [id number] 00:00:00* Test Item Value Reference Range Interpretation Comme nts CHOLESTEROL (test code = 2210) 218 MG/DL TRIGLYCERIDES (test code = 2232) 376 MG/DL HDL CHOLESTEROL (test code = 2220) 29 MG/DL CALC LDL CHOL (test code = 2236) 114 MG/DL RISK RATIO LDL/HDL (test cod e = 2238) 3.92 RATIO HEMOGLOBIN [id number] 00:00:00* Test Item Value Reference Range Interpretation Comme nts HEMOGLOBIN A1c (test code = 13803) 6.1 % [id number] 00:00:00* Test Item Value Reference Range Interpretation Comme nts AMYLASE (test code = 2204) 65 U/L [id number] 00:00:00* Test Item Value Reference Range Interpretation Comme nts LIPASE (test code = 2057) 42 U/L COMPREHENSIVE METABOLIC [id number] 00:00:00* Test Item Value Reference Range Interpretation Comme nts GLUCOSE (test code = 7) 92 MG/DL BUN (test code = 2208) 6 MG/DL CREATININE (test code = 2214) 0.53 MG/DL eGFR AMER. (test cod e = 28323) 117 ML/MIN/1.73 eGFR NON- AMER. (test code = 20360) 101 ML/MIN/1.73 CALC BUN/CREAT (test code = 2235) 11 RATIO SODIUM (test code = 2231) 142 MEQ/L POTASSIUM (test code = 2228) 3.7 MEQ/L CHLORIDE (test code = 2215) 102 MEQ/L CARBON DIOXIDE (test code = 2206) 25 MEQ/L CALCIUM (test code = 2209) 9.2 MG/DL PROTEIN, TOTAL (test code = 2229) 6.5 G/DL ALBUMIN (test code = 2201) 3.4 G/DL CALC GLOBULIN (test code = 2240) 3.1 G/DL CALC A/G RATIO (test code = 2234) 1.1 RATIO BILIRUBIN, TOTAL (test code = 2207) 0.3 MG/DL ALKALINE PHOSPHATASE (test code = 2204) 85 U/L AST (test code = 2218) 11 U/L ALT (test code = 2219) 9 U/L LIPID [id number] 00:00:00* Test Item Value Reference Range Interpretation Comme nts CHOLESTEROL (test code = 0) 218 MG/DL TRIGLYCERIDES (test code = 2232) 376 MG/DL HDL CHOLESTEROL (test code = 2220) 29 MG/DL CALC LDL CHOL (test code = 2236) 114 MG/DL RISK RATIO LDL/HDL (test cod e = 223) 3.92 RATIO HEMOGLOBIN [id number] 00:00:00* Test Item Value Reference Range Interpretation Comme nts HEMOGLOBIN A1c (test code = 90046) 6.1 % [id number] 00:00:00* Test Item Value Reference Range Interpretation Comme nts AMYLASE (test code = 2204) 65 U/L [id number] 00:00:00* Test Item Value Reference Range Interpretation Comme nts LIPASE (test code = 2057) 42 U/L COMPREHENSIVE METABOLIC [id number] 00:00:00* Test Item Value Reference Range Interpretation Comme nts GLUCOSE (test code = 7) 92 MG/DL BUN (test code = 2208) 6 MG/DL CREATININE (test code = 2214) 0.53 MG/DL eGFR AMER. (test cod e = 23381) 117 ML/MIN/1.73 eGFR NON- AMER. (test code = 52237) 101 ML/MIN/1.73 CALC BUN/CREAT (test code = 2235) 11 RATIO SODIUM (test code = 2231) 142 MEQ/L POTASSIUM (test code = 2228) 3.7 MEQ/L CHLORIDE (test code = 2215) 102 MEQ/L CARBON DIOXIDE (test code = 2206) 25 MEQ/L CALCIUM (test code = 2209) 9.2 MG/DL PROTEIN, TOTAL (test code = 2229) 6.5 G/DL ALBUMIN (test code = 2201) 3.4 G/DL CALC GLOBULIN (test code = 2240) 3.1 G/DL CALC A/G RATIO (test code = 2234) 1.1 RATIO BILIRUBIN, TOTAL (test code = 2207) 0.3 MG/DL ALKALINE PHOSPHATASE (test code = 2204) 85 U/L AST (test code = 2218) 11 U/L ALT (test code = 2219) 9 U/L COMPREHENSIVE METABOLIC [id number] 00:00:00* Test Item Value Reference Range Interpretation Comme nts GLUCOSE (test code = 2217) 92 MG/DL BUN (test code = 2208) 6 MG/DL CREATININE (test code = 2214) 0.53 MG/DL eGFR AMER. (test cod e = 41262) 117 ML/MIN/1.73 eGFR NON- AMER. (test code = 92283) 101 ML/MIN/1.73 CALC BUN/CREAT (test code = 2235) 11 RATIO SODIUM (test code = 2231) 142 MEQ/L POTASSIUM (test code = 2228) 3.7 MEQ/L CHLORIDE (test code = 2215) 102 MEQ/L CARBON DIOXIDE (test code = 2206) 25 MEQ/L CALCIUM (test code = 2209) 9.2 MG/DL PROTEIN, TOTAL (test code = 2229) 6.5 G/DL ALBUMIN (test code = 2201) 3.4 G/DL CALC GLOBULIN (test code = 2240) 3.1 G/DL CALC A/G RATIO (test code = 2234) 1.1 RATIO BILIRUBIN, TOTAL (test code = 2207) 0.3 MG/DL ALKALINE PHOSPHATASE (test code = 2204) 85 U/L AST (test code = 2218) 11 U/L ALT (test code = 2219) 9 U/L LIPID [id number] 00:00:00* Test Item Value Reference Range Interpretation Comme nts CHOLESTEROL (test code = 2210) 218 MG/DL TRIGLYCERIDES (test code = 2232) 376 MG/DL HDL CHOLESTEROL (test code = 2220) 29 MG/DL CALC LDL CHOL (test code = 2237) 114 MG/DL RISK RATIO LDL/HDL (test cod e = 2238) 3.92 RATIO HEMOGLOBIN [id number] 00:00:00* Test Item Value Reference Range Interpretation Comme nts HEMOGLOBIN A1c (test code = 09168) 6.1 % [id number] 00:00:00* Test Item Value Reference Range Interpretation Comme nts AMYLASE (test code = 2205) 65 U/L [id number] 00:00:00* Test Item Value Reference Range Interpretation Comme nts LIPASE (test code = 2058) 42 U/L LIPID [id number] 00:00:00* Test Item Value Reference Range Interpretation Comme nts CHOLESTEROL (test code = 2210) 218 MG/DL TRIGLYCERIDES (test code = 2232) 376 MG/DL HDL CHOLESTEROL (test code = 2220) 29 MG/DL CALC LDL CHOL (test code = 2237) 114 MG/DL RISK RATIO LDL/HDL (test cod e = 2238) 3.92 RATIO HEMOGLOBIN [id number] 00:00:00* Test Item Value Reference Range Interpretation Comme nts HEMOGLOBIN A1c (test code = 64366) 6.1 % [id number] 00:00:00* Test Item Value Reference Range Interpretation Comme nts AMYLASE (test code = 2205) 65 U/L [id number] 00:00:00* Test Item Value Reference Range Interpretation Comme nts LIPASE (test code = 8) 42 U/L COMPREHENSIVE METABOLIC [id number] 00:00:00* Test Item Value Reference Range Interpretation Comme nts GLUCOSE (test code = 2217) 92 MG/DL BUN (test code = 2208) 6 MG/DL CREATININE (test code = 2214) 0.53 MG/DL eGFR AMER. (test cod e = 44773) 117 ML/MIN/1.73 eGFR NON- AMER. (test code = 49660) 101 ML/MIN/1.73 CALC BUN/CREAT (test code = 2235) 11 RATIO SODIUM (test code = 2231) 142 MEQ/L POTASSIUM (test code = 2228) 3.7 MEQ/L CHLORIDE (test code = 2215) 102 MEQ/L CARBON DIOXIDE (test code = 2206) 25 MEQ/L CALCIUM (test code = 2209) 9.2 MG/DL PROTEIN, TOTAL (test code = 2229) 6.5 G/DL ALBUMIN (test code = 2201) 3.4 G/DL CALC GLOBULIN (test code = 2240) 3.1 G/DL CALC A/G RATIO (test code = 2234) 1.1 RATIO BILIRUBIN, TOTAL (test code = 2207) 0.3 MG/DL ALKALINE PHOSPHATASE (test code = 2204) 85 U/L AST (test code = 221) 11 U/L ALT (test code = 2219) 9 U/L LIPID [id number] 00:00:00* Test Item Value Reference Range Interpretation Comme nts CHOLESTEROL (test code = 2210) 218 MG/DL TRIGLYCERIDES (test code = 2232) 376 MG/DL HDL CHOLESTEROL (test code = 0) 29 MG/DL CALC LDL CHOL (test code = 2236) 114 MG/DL RISK RATIO LDL/HDL (test cod e = 2238) 3.92 RATIO HEMOGLOBIN [id number] 00:00:00* Test Item Value Reference Range Interpretation Comme nts HEMOGLOBIN A1c (test code = 41522) 6.1 % [id number] 00:00:00* Test Item Value Reference Range Interpretation Comme nts AMYLASE (test code = 2204) 65 U/L [id number] 00:00:00* Test Item Value Reference Range Interpretation Comme nts LIPASE (test code = 2057) 42 U/L COMPREHENSIVE METABOLIC [id number] 00:00:00* Test Item Value Reference Range Interpretation Comme nts GLUCOSE (test code = 7) 92 MG/DL BUN (test code = 8) 6 MG/DL CREATININE (test code = 2214) 0.53 MG/DL eGFR AMER. (test cod e = 07394) 117 ML/MIN/1.73 eGFR NON- AMER. (test code = 89138) 101 ML/MIN/1.73 CALC BUN/CREAT (test code = 2235) 11 RATIO SODIUM (test code = 2231) 142 MEQ/L POTASSIUM (test code = 2228) 3.7 MEQ/L CHLORIDE (test code = 2215) 102 MEQ/L CARBON DIOXIDE (test code = 2206) 25 MEQ/L CALCIUM (test code = 2209) 9.2 MG/DL PROTEIN, TOTAL (test code = 2229) 6.5 G/DL ALBUMIN (test code = 2201) 3.4 G/DL CALC GLOBULIN (test code = 2240) 3.1 G/DL CALC A/G RATIO (test code = 2234) 1.1 RATIO BILIRUBIN, TOTAL (test code = 2207) 0.3 MG/DL ALKALINE PHOSPHATASE (test code = 2204) 85 U/L AST (test code = 2218) 11 U/L ALT (test code = 2219) 9 U/L LIPID [id number] 00:00:00* Test Item Value Reference Range Interpretation Comme nts CHOLESTEROL (test code = 2210) 218 MG/DL TRIGLYCERIDES (test code = 2232) 376 MG/DL HDL CHOLESTEROL (test code = 2220) 29 MG/DL CALC LDL CHOL (test code = 7) 114 MG/DL RISK RATIO LDL/HDL (test cod e = 2238) 3.92 RATIO HEMOGLOBIN [id number] 00:00:00* Test Item Value Reference Range Interpretation Comme nts HEMOGLOBIN A1c (test code = 04776) 6.1 % [id number] 00:00:00* Test Item Value Reference Range Interpretation Comme nts AMYLASE (test code = 2204) 65 U/L Topher F [id number] 00:00:00* Test Item Value Reference Range Interpretation Comme nts LIPASE (test code = 2057) 42 U/L Topher F AustinCOMPREHENSIVE METABOLIC [id number] 00:00:00* Test Item Value Reference Range Interpretation Comme nts GLUCOSE (test code = 2217) 92 MG/DL BUN (test code = 2208) 6 MG/DL CREATININE (test code = 2214) 0.53 MG/DL eGFR AMER. (test cod e = 62102) 117 ML/MIN/1.73 eGFR NON- AMER. (test code = 45731) 101 ML/MIN/1.73 CALC BUN/CREAT (test code = 2235) 11 RATIO SODIUM (test code = 2231) 142 MEQ/L POTASSIUM (test code = 2228) 3.7 MEQ/L CHLORIDE (test code = 2215) 102 MEQ/L CARBON DIOXIDE (test code = 2206) 25 MEQ/L CALCIUM (test code = 2209) 9.2 MG/DL PROTEIN, TOTAL (test code = 2229) 6.5 G/DL ALBUMIN (test code = 2201) 3.4 G/DL CALC GLOBULIN (test code = 2240) 3.1 G/DL CALC A/G RATIO (test code = 2234) 1.1 RATIO BILIRUBIN, TOTAL (test code = 2207) 0.3 MG/DL ALKALINE PHOSPHATASE (test code = 2204) 85 U/L AST (test code = 2218) 11 U/L ALT (test code = 2219) 9 U/L Topher Cam AustinLIPID [id number] 00:00:00* Test Item Value Reference Range Interpretation Comme nts CHOLESTEROL (test code = 2210) 218 MG/DL TRIGLYCERIDES (test code = 2232) 376 MG/DL HDL CHOLESTEROL (test code = 2220) 29 MG/DL CALC LDL CHOL (test code = 2237) 114 MG/DL RISK RATIO LDL/HDL (test cod e = 2238) 3.92 RATIO Topher BrownHEMOGLOBIN [id number] 00:00:00* Test Item Value Reference Range Interpretation Comme nts HEMOGLOBIN A1c (test code = 58222) 6.1 % Topher Cam [id number] 00:00:00* Test Item Value Reference Range Interpretation Comme nts AMYLASE (test code = 2204) 65 U/L Topher Cam AustinLIPID [id number] 00:00:00* Test Item Value Reference Range Interpretation Comme nts CHOLESTEROL (test code = 2210) 218 MG/DL TRIGLYCERIDES (test code = 2232) 376 MG/DL HDL CHOLESTEROL (test code = 2220) 29 MG/DL CALC LDL CHOL (test code = 2237) 114 MG/DL RISK RATIO LDL/HDL (test cod e = 2238) 3.92 RATIO Topher Cam [id number] 00:00:00* Test Item Value Reference Range Interpretation Comme nts LIPASE (test code = 8) 42 U/L Topher BrownCOMPREHENSIVE METABOLIC [id number] 00:00:00* Test Item Value Reference Range Interpretation Comme nts GLUCOSE (test code = 2217) 92 MG/DL BUN (test code = 2208) 6 MG/DL CREATININE (test code = 2214) 0.53 MG/DL eGFR AMER. (test cod e = 60304) 117 ML/MIN/1.73 eGFR NON- AMER. (test code = 46494) 101 ML/MIN/1.73 CALC BUN/CREAT (test code = 2235) 11 RATIO SODIUM (test code = 2231) 142 MEQ/L POTASSIUM (test code = 2228) 3.7 MEQ/L CHLORIDE (test code = 2215) 102 MEQ/L CARBON DIOXIDE (test code = 2206) 25 MEQ/L CALCIUM (test code = 2209) 9.2 MG/DL PROTEIN, TOTAL (test code = 2229) 6.5 G/DL ALBUMIN (test code = 2201) 3.4 G/DL CALC GLOBULIN (test code = 2240) 3.1 G/DL CALC A/G RATIO (test code = 2234) 1.1 RATIO BILIRUBIN, TOTAL (test code = 2207) 0.3 MG/DL ALKALINE PHOSPHATASE (test code = 2204) 85 U/L AST (test code = 2218) 11 U/L ALT (test code = 2219) 9 U/L Topher Cam AustinLIPID [id number] 00:00:00* Test Item Value Reference Range Interpretation Comme nts CHOLESTEROL (test code = 2210) 218 MG/DL TRIGLYCERIDES (test code = 2232) 376 MG/DL HDL CHOLESTEROL (test code = 2220) 29 MG/DL CALC LDL CHOL (test code = 2237) 114 MG/DL RISK RATIO LDL/HDL (test cod e = 2238) 3.92 RATIO Topher BrownHEMOGLOBIN [id number] 00:00:00* Test Item Value Reference Range Interpretation Comme nts HEMOGLOBIN A1c (test code = 08910) 6.1 % Topher Cam [id number] 00:00:00* Test Item Value Reference Range Interpretation Comme nts AMYLASE (test code = 2204) 65 U/L Topher Cam [id number] 00:00:00* Test Item Value Reference Range Interpretation Comme nts LIPASE (test code = 2057) 42 U/L Topher BrownCOMPREHENSIVE METABOLIC [id number] 00:00:00* Test Item Value Reference Range Interpretation Comme nts GLUCOSE (test code = 2217) 92 MG/DL BUN (test code = 2208) 6 MG/DL CREATININE (test code = 2214) 0.53 MG/DL eGFR AMER. (test cod e = ) 117 ML/MIN/1.73 eGFR NON- AMER. (test code = 71096) 101 ML/MIN/1.73 CALC BUN/CREAT (test code = 2235) 11 RATIO SODIUM (test code = 2231) 142 MEQ/L POTASSIUM (test code = 2228) 3.7 MEQ/L CHLORIDE (test code = 2215) 102 MEQ/L CARBON DIOXIDE (test code = 2206) 25 MEQ/L CALCIUM (test code = 2209) 9.2 MG/DL PROTEIN, TOTAL (test code = 222) 6.5 G/DL ALBUMIN (test code = 2201) 3.4 G/DL CALC GLOBULIN (test code = 2240) 3.1 G/DL CALC A/G RATIO (test code = 2234) 1.1 RATIO BILIRUBIN, TOTAL (test code = 2207) 0.3 MG/DL ALKALINE PHOSPHATASE (test code = 2204) 85 U/L AST (test code = 2218) 11 U/L ALT (test code = 2219) 9 U/L Topher Cam AustinLIPID [id number] 00:00:00* Test Item Value Reference Range Interpretation Comme nts CHOLESTEROL (test code = 2210) 218 MG/DL TRIGLYCERIDES (test code = 2232) 376 MG/DL HDL CHOLESTEROL (test code = 2220) 29 MG/DL CALC LDL CHOL (test code = 2237) 114 MG/DL RISK RATIO LDL/HDL (test cod e = 223) 3.92 RATIO Topher Cam AustinHEMOGLOBIN [id number] 00:00:00* Test Item Value Reference Range Interpretation Comme nts HEMOGLOBIN A1c (test code = 11434) 6.1 % Topher Cam [id number] 00:00:00* Test Item Value Reference Range Interpretation Comme nts AMYLASE (test code = 2204) 65 U/L Topher Cam [id number] 00:00:00* Test Item Value Reference Range Interpretation Comme nts LIPASE (test code = 8) 42 U/L Topher Cam AustinHEMOGLOBIN [id number] 00:00:00* Test Item Value Reference Range Interpretation Comme nts HEMOGLOBIN A1c (test code = 91779) 6.1 % Topher Cam [id number] 00:00:00* Test Item Value Reference Range Interpretation Comme nts AMYLASE (test code = 5) 65 U/L Topher Cam [id number] 00:00:00* Test Item Value Reference Range Interpretation Comme nts LIPASE (test code = 2057) 42 U/L Topher Cam AustinCOMPREHENSIVE METABOLIC [id number] 00:00:00* Test Item Value Reference Range Interpretation Comme nts GLUCOSE (test code = 2217) 92 MG/DL BUN (test code = 2207) 6 MG/DL CREATININE (test code = 2214) 0.53 MG/DL eGFR AMER. (test cod e = 34790) 117 ML/MIN/1.73 eGFR NON- AMER. (test code = 72324) 101 ML/MIN/1.73 CALC BUN/CREAT (test code = 2235) 11 RATIO SODIUM (test code = 2231) 142 MEQ/L POTASSIUM (test code = 2228) 3.7 MEQ/L CHLORIDE (test code = 2215) 102 MEQ/L CARBON DIOXIDE (test code = 2206) 25 MEQ/L CALCIUM (test code = 2209) 9.2 MG/DL PROTEIN, TOTAL (test code = 2229) 6.5 G/DL ALBUMIN (test code = 2201) 3.4 G/DL CALC GLOBULIN (test code = 2240) 3.1 G/DL CALC A/G RATIO (test code = 2234) 1.1 RATIO BILIRUBIN, TOTAL (test code = 2207) 0.3 MG/DL ALKALINE PHOSPHATASE (test code = 2204) 85 U/L AST (test code = 2218) 11 U/L ALT (test code = 2219) 9 U/L Topher BrownLIPID [id number] 00:00:00* Test Item Value Reference Range Interpretation Comme nts CHOLESTEROL (test code = 2210) 218 MG/DL TRIGLYCERIDES (test code = 2232) 376 MG/DL HDL CHOLESTEROL (test code = 2220) 29 MG/DL CALC LDL CHOL (test code = 2237) 114 MG/DL RISK RATIO LDL/HDL (test cod e = 2238) 3.92 RATIO Topher BrownHEMOGLOBIN [id number] 00:00:00* Test Item Value Reference Range Interpretation Comme kimberley HEMOGLOBIN A1c (test code = 33002) 6.1 % Topher [id number] 00:00:00* Test Item Value Reference Range Interpretation Comme nts AMYLASE (test code = 2205) 65 U/L Topher Cam [id number] 00:00:00* Test Item Value Reference Range Interpretation Comme nts LIPASE (test code = 205) 42 U/L Topher BrownCOMPREHENSIVE METABOLIC [id number] 00:00:00* Test Item Value Reference Range Interpretation Comme nts GLUCOSE (test code = 2217) 92 MG/DL BUN (test code = 2208) 6 MG/DL CREATININE (test code = 2214) 0.53 MG/DL eGFR AMER. (test cod e = 49015) 117 ML/MIN/1.73 eGFR NON- AMER. (test code = 30884) 101 ML/MIN/1.73 CALC BUN/CREAT (test code = 2235) 11 RATIO SODIUM (test code = 2231) 142 MEQ/L POTASSIUM (test code = 2228) 3.7 MEQ/L CHLORIDE (test code = 2215) 102 MEQ/L CARBON DIOXIDE (test code = 2206) 25 MEQ/L CALCIUM (test code = 2209) 9.2 MG/DL PROTEIN, TOTAL (test code = 2229) 6.5 G/DL ALBUMIN (test code = 2201) 3.4 G/DL CALC GLOBULIN (test code = 2240) 3.1 G/DL CALC A/G RATIO (test code = 2234) 1.1 RATIO BILIRUBIN, TOTAL (test code = 2207) 0.3 MG/DL ALKALINE PHOSPHATASE (test code = 2204) 85 U/L AST (test code = 2218) 11 U/L ALT (test code = 2219) 9 U/L Topher BrownLIPID [id number] 00:00:00* Test Item Value Reference Range Interpretation Comme nts CHOLESTEROL (test code = 2210) 218 MG/DL TRIGLYCERIDES (test code = 2232) 376 MG/DL HDL CHOLESTEROL (test code = 2220) 29 MG/DL CALC LDL CHOL (test code = 2237) 114 MG/DL RISK RATIO LDL/HDL (test cod e = 2238) 3.92 RATIO Topher BrwonHEMOGLOBIN [id number] 00:00:00* Test Item Value Reference Range Interpretation Comme kimberley HEMOGLOBIN A1c (test code = 20836) 6.1 % Topher Cam [id number] 00:00:00* Test Item Value Reference Range Interpretation Comme nts AMYLASE (test code = 5) 65 U/L Topher Cam [id number] 00:00:00* Test Item Value Reference Range Interpretation Comme nts LIPASE (test code = 205) 42 U/L Topher BrownCOMPREHENSIVE METABOLIC [id number] 00:00:00* Test Item Value Reference Range Interpretation Comme nts GLUCOSE (test code = 2217) 92 MG/DL BUN (test code = 8) 6 MG/DL CREATININE (test code = 2214) 0.53 MG/DL eGFR AMER. (test cod e = 14909) 117 ML/MIN/1.73 eGFR NON- AMER. (test code = 02069) 101 ML/MIN/1.73 CALC BUN/CREAT (test code = 2235) 11 RATIO SODIUM (test code = 2231) 142 MEQ/L POTASSIUM (test code = 2228) 3.7 MEQ/L CHLORIDE (test code = 2215) 102 MEQ/L CARBON DIOXIDE (test code = 2206) 25 MEQ/L CALCIUM (test code = 2209) 9.2 MG/DL PROTEIN, TOTAL (test code = 2229) 6.5 G/DL ALBUMIN (test code = 2201) 3.4 G/DL CALC GLOBULIN (test code = 2240) 3.1 G/DL CALC A/G RATIO (test code = 2234) 1.1 RATIO BILIRUBIN, TOTAL (test code = 2207) 0.3 MG/DL ALKALINE PHOSPHATASE (test code = 2204) 85 U/L AST (test code = 2218) 11 U/L ALT (test code = 2219) 9 U/L Topher BrownLIPID [id number] 00:00:00* Test Item Value Reference Range Interpretation Comme nts CHOLESTEROL (test code = 2210) 218 MG/DL TRIGLYCERIDES (test code = 2232) 376 MG/DL HDL CHOLESTEROL (test code = 2220) 29 MG/DL CALC LDL CHOL (test code = 2237) 114 MG/DL RISK RATIO LDL/HDL (test cod e = 2238) 3.92 RATIO Topher BrownHEMOGLOBIN [id number] 00:00:00* Test Item Value Reference Range Interpretation Comme kimberley HEMOGLOBIN A1c (test code = 28949) 6.1 % Topher [id number] 00:00:00* Test Item Value Reference Range Interpretation Comme nts AMYLASE (test code = 5) 65 U/L Topher Cam [id number] 00:00:00* Test Item Value Reference Range Interpretation Comme nts LIPASE (test code = 2057) 42 U/L Topher BrownCOMPREHENSIVE METABOLIC [id number] 00:00:00* Test Item Value Reference Range Interpretation Comme nts GLUCOSE (test code = 2217) 92 MG/DL BUN (test code = 2208) 6 MG/DL CREATININE (test code = 2214) 0.53 MG/DL eGFR AMER. (test cod e = 56659) 117 ML/MIN/1.73 eGFR NON- AMER. (test code = 68250) 101 ML/MIN/1.73 CALC BUN/CREAT (test code = 2235) 11 RATIO SODIUM (test code = 2231) 142 MEQ/L POTASSIUM (test code = 2228) 3.7 MEQ/L CHLORIDE (test code = 2215) 102 MEQ/L CARBON DIOXIDE (test code = 2206) 25 MEQ/L CALCIUM (test code = 2209) 9.2 MG/DL PROTEIN, TOTAL (test code = 2229) 6.5 G/DL ALBUMIN (test code = 2201) 3.4 G/DL CALC GLOBULIN (test code = 2240) 3.1 G/DL CALC A/G RATIO (test code = 2234) 1.1 RATIO BILIRUBIN, TOTAL (test code = 2207) 0.3 MG/DL ALKALINE PHOSPHATASE (test code = 2204) 85 U/L AST (test code = 2218) 11 U/L ALT (test code = 2219) 9 U/L Topher BrownLIPID [id number] 00:00:00* Test Item Value Reference Range Interpretation Comme nts CHOLESTEROL (test code = 2210) 218 MG/DL TRIGLYCERIDES (test code = 2232) 376 MG/DL HDL CHOLESTEROL (test code = 2220) 29 MG/DL CALC LDL CHOL (test code = 2237) 114 MG/DL RISK RATIO LDL/HDL (test cod e = 2238) 3.92 RATIO Topher BrownHEMOGLOBIN [id number] 00:00:00* Test Item Value Reference Range Interpretation Comme nts HEMOGLOBIN A1c (test code = 11128) 6.1 % Topher [id number] 00:00:00* Test Item Value Reference Range Interpretation Comme nts AMYLASE (test code = 2205) 65 U/L Topher BrownCULTURE, [id number] 00:00:00* Test Item Value Reference Range Interpretation Comme nts CULTURE, URINE (test code = 60741) SPECIMEN NUMBER: [id number] Topher AnnLTEMILIANO, [id number] 00:00:00* Test Item Value Reference Range Interpretation Comme nts CULTURE, URINE (test code = 24533) SPECIMEN NUMBER: [id number] Topher BrownCULTURE, [id number] 00:00:00* Test Item Value Reference Range Interpretation Comme nts CULTURE, URINE (test code = 84459) SPECIMEN NUMBER: [id number] CULTURE, [id number] 00:00:00* Test Item Value Reference Range Interpretation Comme nts CULTURE, URINE (test code = 33708) SPECIMEN NUMBER: [id number] CULTURE, [id number] 00:00:00* Test Item Value Reference Range Interpretation Comme nts CULTURE, URINE (test code = 82595) SPECIMEN NUMBER: [id number] CULTURE, [id number] 00:00:00* Test Item Value Reference Range Interpretation Comme nts CULTURE, URINE (test code = 48313) SPECIMEN NUMBER: [id number] CULTURE, [id number] 00:00:00* Test Item Value Reference Range Interpretation Comme nts CULTURE, URINE (test code = 66325) SPECIMEN NUMBER: [id number] CULTURE, [id number] 00:00:00* Test Item Value Reference Range Interpretation Comme nts CULTURE, URINE (test code = 41441) SPECIMEN NUMBER: [id number] CULTURE, [id number] 00:00:00* Test Item Value Reference Range Interpretation Comme nts CULTURE, URINE (test code = 19420) SPECIMEN NUMBER: [id number] CULTURE, [id number] 00:00:00* Test Item Value Reference Range Interpretation Comme nts CULTURE, URINE (test code = 36292) SPECIMEN NUMBER: [id number] MICKIE, [id number] 00:00:00* Test Item Value Reference Range Interpretation Comme nts CULTURE, URINE (test code = 95631) SPECIMEN NUMBER: [id number] Topher AnnLTEMILIANO, [id number] 00:00:00* Test Item Value Reference Range Interpretation Comme nts CULTURE, URINE (test code = 00729) SPECIMEN NUMBER: [id number] Topher Lawson [id number] 00:00:00* Test Item Value Reference Range Interpretation Comme nts CULTURE, URINE (test code = 03512) SPECIMEN NUMBER: [id number] Topher AnnLTEMILIANO, [id number] 00:00:00* Test Item Value Reference Range Interpretation Comme nts CULTURE, URINE (test code = 92360) SPECIMEN NUMBER: [id number] Topher AnnLTEMILIANO, [id number] 00:00:00* Test Item Value Reference Range Interpretation Comme nts CULTURE, URINE (test code = 45637) SPECIMEN NUMBER: [id number] Topher Lawson, [id number] 00:00:00* Test Item Value Reference Range Interpretation Comme nts CULTURE, URINE (test code = 88530) SPECIMEN NUMBER: [id number] Topher AnnLTEMILIANO, [id number] 00:00:00* Test Item Value Reference Range Interpretation Comme nts CULTURE, URINE (test code = 76923) SPECIMEN NUMBER: [id number] Topher BrownVITAMIN D, 25 [id number] 00:00:00* Test Item Value Reference Range Interpretation Comme nts VITAMIN D, 25 OH (test code = 4958) 23 NG/ML Topher BrownC-REACTIVE [id number] 00:00:00* Test Item Value Reference Range Interpretation Comme nts C-REACTIVE PROTEIN (test cod e = 3513) 0.2 MG/DL Topher BrownRHEUMATOID FACTOR, [id number] 00:00:00* Test Item Value Reference Range Interpretation Comme nts RHEUMATOID FACTOR, QUANT (te st code = 3502) <10 IU/ML Topher Cam AustinSEDIMENTATION [id number] 00:00:00* Test Item Value Reference Range Interpretation Comme nts SEDIMENTATION RATE (test cod e = 1017) 26 MM/HOUR Topher BrownCOMPREHENSIVE METABOLIC [id number] 00:00:00* Test Item Value Reference Range Interpretation Comme nts GLUCOSE (test code = 2217) 77 MG/DL BUN (test code = 2208) 6 MG/DL CREATININE (test code = 2214) 0.63 MG/DL eGFR AMER. (test cod e = 77605) 111 ML/MIN/1.73 eGFR NON- AMER. (test code = 47474) 96 ML/MIN/1.73 CALC BUN/CREAT (test code = 2235) 10 RATIO SODIUM (test code = 2231) 142 MEQ/L POTASSIUM (test code = 2228) 4.0 MEQ/L CHLORIDE (test code = 2215) 100 MEQ/L CARBON DIOXIDE (test code = 2206) 25 MEQ/L CALCIUM (test code = 2209) 9.7 MG/DL PROTEIN, TOTAL (test code = 2229) 7.8 G/DL ALBUMIN (test code = 2201) 5.1 G/DL CALC GLOBULIN (test code = 2240) 2.7 G/DL CALC A/G RATIO (test code = 2234) 1.9 RATIO BILIRUBIN, TOTAL (test code = 2207) 0.3 MG/DL ALKALINE PHOSPHATASE (test code = 2204) 87 U/L AST (test code = 2218) 68 U/L ALT (test code = 2219) 50 U/L Topher BrownCBC W/AUTO [id number] 00:00:00* Test Item Value Reference Range Interpretation Comme nts WBC (test code = 1001) 4.2 K/UL RBC (test code = 1002) 4.25 M/UL HEMOGLOBIN (test code = 1003) 14.0 G/DL HEMATOCRIT (test code = 1004) 38.7 % MCV (test code = 1005) 91.1 fL MCH (test code = 1006) 32.9 PG MCHC (test code = 1007) 36.2 G/DL RDW (test code = 1038) 13.1 % NEUTROPHILS (test code = 1008) 43.9 % LYMPHOCYTES (test code = 1010) 40.7 % MONOCYTES (test code = 1011) 10.2 % EOSINOPHILS (test code = 1012) 4.3 % BASOPHILS (test code = 1013) 0.9 % PLATELET COUNT (test code = 1015) 318 K/UL Topher BrownVITAMIN D, 25 [id number] 00:00:00* Test Item Value Reference Range Interpretation Comme nts VITAMIN D, 25 OH (test code = 4958) 23 NG/ML C-REACTIVE [id number] 00:00:00* Test Item Value Reference Range Interpretation Comme nts C-REACTIVE PROTEIN (test cod e = 3513) 0.2 MG/DL RHEUMATOID FACTOR, [id number] 00:00:00* Test Item Value Reference Range Interpretation Comme nts RHEUMATOID FACTOR, QUANT (te st code = 3502) <10 IU/ML SEDIMENTATION [id number] 00:00:00* Test Item Value Reference Range Interpretation Comme nts SEDIMENTATION RATE (test cod e = 1017) 26 MM/HOUR COMPREHENSIVE METABOLIC [id number] 00:00:00* Test Item Value Reference Range Interpretation Comme nts GLUCOSE (test code = 2217) 77 MG/DL BUN (test code = 2208) 6 MG/DL CREATININE (test code = 2214) 0.63 MG/DL eGFR AMER. (test cod e = 77158) 111 ML/MIN/1.73 eGFR NON- AMER. (test code = 16456) 96 ML/MIN/1.73 CALC BUN/CREAT (test code = 2235) 10 RATIO SODIUM (test code = 2231) 142 MEQ/L POTASSIUM (test code = 2228) 4.0 MEQ/L CHLORIDE (test code = 2215) 100 MEQ/L CARBON DIOXIDE (test code = 2206) 25 MEQ/L CALCIUM (test code = 2209) 9.7 MG/DL PROTEIN, TOTAL (test code = 2229) 7.8 G/DL ALBUMIN (test code = 2201) 5.1 G/DL CALC GLOBULIN (test code = 2240) 2.7 G/DL CALC A/G RATIO (test code = 2234) 1.9 RATIO BILIRUBIN, TOTAL (test code = 2207) 0.3 MG/DL ALKALINE PHOSPHATASE (test code = 2204) 87 U/L AST (test code = 2218) 68 U/L ALT (test code = 2219) 50 U/L CBC W/AUTO [id number] 00:00:00* Test Item Value Reference Range Interpretation Comme nts WBC (test code = 1001) 4.2 K/UL RBC (test code = 1002) 4.25 M/UL HEMOGLOBIN (test code = 1003) 14.0 G/DL HEMATOCRIT (test code = 1004) 38.7 % MCV (test code = 1005) 91.1 fL MCH (test code = 1006) 32.9 PG MCHC (test code = 1007) 36.2 G/DL RDW (test code = 1038) 13.1 % NEUTROPHILS (test code = 1008) 43.9 % LYMPHOCYTES (test code = 1010) 40.7 % MONOCYTES (test code = 1011) 10.2 % EOSINOPHILS (test code = 1012) 4.3 % BASOPHILS (test code = 1013) 0.9 % PLATELET COUNT (test code = 1015) 318 K/UL VITAMIN D, 25 [id number] 00:00:00* Test Item Value Reference Range Interpretation Comme nts VITAMIN D, 25 OH (test code = 4958) 23 NG/ML C-REACTIVE [id number] 00:00:00* Test Item Value Reference Range Interpretation Comme nts C-REACTIVE PROTEIN (test cod e = 3513) 0.2 MG/DL RHEUMATOID FACTOR, [id number] 00:00:00* Test Item Value Reference Range Interpretation Comme nts RHEUMATOID FACTOR, QUANT (te st code = 3502) <10 IU/ML SEDIMENTATION [id number] 00:00:00* Test Item Value Reference Range Interpretation Comme nts SEDIMENTATION RATE (test cod e = 1017) 26 MM/HOUR COMPREHENSIVE METABOLIC [id number] 00:00:00* Test Item Value Reference Range Interpretation Comme nts GLUCOSE (test code = 2217) 77 MG/DL BUN (test code = 2208) 6 MG/DL CREATININE (test code = 2214) 0.63 MG/DL eGFR AMER. (test cod e = 49312) 111 ML/MIN/1.73 eGFR NON- AMER. (test code = 91818) 96 ML/MIN/1.73 CALC BUN/CREAT (test code = 2235) 10 RATIO SODIUM (test code = 2231) 142 MEQ/L POTASSIUM (test code = 2228) 4.0 MEQ/L CHLORIDE (test code = 2215) 100 MEQ/L CARBON DIOXIDE (test code = 2206) 25 MEQ/L CALCIUM (test code = 2209) 9.7 MG/DL PROTEIN, TOTAL (test code = 2229) 7.8 G/DL ALBUMIN (test code = 2201) 5.1 G/DL CALC GLOBULIN (test code = 2240) 2.7 G/DL CALC A/G RATIO (test code = 2234) 1.9 RATIO BILIRUBIN, TOTAL (test code = 2207) 0.3 MG/DL ALKALINE PHOSPHATASE (test code = 2204) 87 U/L AST (test code = 2218) 68 U/L ALT (test code = 2219) 50 U/L CBC W/AUTO [id number] 00:00:00* Test Item Value Reference Range Interpretation Comme nts WBC (test code = 1001) 4.2 K/UL RBC (test code = 1002) 4.25 M/UL HEMOGLOBIN (test code = 1003) 14.0 G/DL HEMATOCRIT (test code = 1004) 38.7 % MCV (test code = 1005) 91.1 fL MCH (test code = 1006) 32.9 PG MCHC (test code = 1007) 36.2 G/DL RDW (test code = 1038) 13.1 % NEUTROPHILS (test code = 1008) 43.9 % LYMPHOCYTES (test code = 1010) 40.7 % MONOCYTES (test code = 1011) 10.2 % EOSINOPHILS (test code = 1012) 4.3 % BASOPHILS (test code = 1013) 0.9 % PLATELET COUNT (test code = 1015) 318 K/UL VITAMIN D, 25 [id number] 00:00:00* Test Item Value Reference Range Interpretation Comme nts VITAMIN D, 25 OH (test code = 4958) 23 NG/ML C-REACTIVE [id number] 00:00:00* Test Item Value Reference Range Interpretation Comme nts C-REACTIVE PROTEIN (test cod e = 3513) 0.2 MG/DL RHEUMATOID FACTOR, [id number] 00:00:00* Test Item Value Reference Range Interpretation Comme nts RHEUMATOID FACTOR, QUANT (te st code = 3502) <10 IU/ML SEDIMENTATION [id number] 00:00:00* Test Item Value Reference Range Interpretation Comme nts SEDIMENTATION RATE (test cod e = 1017) 26 MM/HOUR COMPREHENSIVE METABOLIC [id number] 00:00:00* Test Item Value Reference Range Interpretation Comme nts GLUCOSE (test code = 2217) 77 MG/DL BUN (test code = 2208) 6 MG/DL CREATININE (test code = 2214) 0.63 MG/DL eGFR AMER. (test cod e = 72763) 111 ML/MIN/1.73 eGFR NON- AMER. (test code = 44346) 96 ML/MIN/1.73 CALC BUN/CREAT (test code = 2235) 10 RATIO SODIUM (test code = 2231) 142 MEQ/L POTASSIUM (test code = 2228) 4.0 MEQ/L CHLORIDE (test code = 2215) 100 MEQ/L CARBON DIOXIDE (test code = 2206) 25 MEQ/L CALCIUM (test code = 2209) 9.7 MG/DL PROTEIN, TOTAL (test code = 2229) 7.8 G/DL ALBUMIN (test code = 2201) 5.1 G/DL CALC GLOBULIN (test code = 2240) 2.7 G/DL CALC A/G RATIO (test code = 2234) 1.9 RATIO BILIRUBIN, TOTAL (test code = 2207) 0.3 MG/DL ALKALINE PHOSPHATASE (test code = 2204) 87 U/L AST (test code = 2218) 68 U/L ALT (test code = 2219) 50 U/L CBC W/AUTO [id number] 00:00:00* Test Item Value Reference Range Interpretation Comme nts WBC (test code = 1001) 4.2 K/UL RBC (test code = 1002) 4.25 M/UL HEMOGLOBIN (test code = 1003) 14.0 G/DL HEMATOCRIT (test code = 1004) 38.7 % MCV (test code = 1005) 91.1 fL MCH (test code = 1006) 32.9 PG MCHC (test code = 1007) 36.2 G/DL RDW (test code = 1038) 13.1 % NEUTROPHILS (test code = 1008) 43.9 % LYMPHOCYTES (test code = 1010) 40.7 % MONOCYTES (test code = 1011) 10.2 % EOSINOPHILS (test code = 1012) 4.3 % BASOPHILS (test code = 1013) 0.9 % PLATELET COUNT (test code = 1015) 318 K/UL VITAMIN D, 25 [id number] 00:00:00* Test Item Value Reference Range Interpretation Comme nts VITAMIN D, 25 OH (test code = 4958) 23 NG/ML C-REACTIVE [id number] 00:00:00* Test Item Value Reference Range Interpretation Comme nts C-REACTIVE PROTEIN (test cod e = 3513) 0.2 MG/DL RHEUMATOID FACTOR, [id number] 00:00:00* Test Item Value Reference Range Interpretation Comme nts RHEUMATOID FACTOR, QUANT (te st code = 3502) <10 IU/ML SEDIMENTATION [id number] 00:00:00* Test Item Value Reference Range Interpretation Comme nts SEDIMENTATION RATE (test cod e = 1017) 26 MM/HOUR COMPREHENSIVE METABOLIC [id number] 00:00:00* Test Item Value Reference Range Interpretation Comme nts GLUCOSE (test code = 2217) 77 MG/DL BUN (test code = 2208) 6 MG/DL CREATININE (test code = 2214) 0.63 MG/DL eGFR AMER. (test cod e = 95942) 111 ML/MIN/1.73 eGFR NON- AMER. (test code = 17286) 96 ML/MIN/1.73 CALC BUN/CREAT (test code = 2235) 10 RATIO SODIUM (test code = 2231) 142 MEQ/L POTASSIUM (test code = 2228) 4.0 MEQ/L CHLORIDE (test code = 2215) 100 MEQ/L CARBON DIOXIDE (test code = 2206) 25 MEQ/L CALCIUM (test code = 2209) 9.7 MG/DL PROTEIN, TOTAL (test code = 2229) 7.8 G/DL ALBUMIN (test code = 2201) 5.1 G/DL CALC GLOBULIN (test code = 2240) 2.7 G/DL CALC A/G RATIO (test code = 2234) 1.9 RATIO BILIRUBIN, TOTAL (test code = 2207) 0.3 MG/DL ALKALINE PHOSPHATASE (test code = 2204) 87 U/L AST (test code = 2218) 68 U/L ALT (test code = 2219) 50 U/L CBC W/AUTO [id number] 00:00:00* Test Item Value Reference Range Interpretation Comme nts WBC (test code = 1001) 4.2 K/UL RBC (test code = 1002) 4.25 M/UL HEMOGLOBIN (test code = 1003) 14.0 G/DL HEMATOCRIT (test code = 1004) 38.7 % MCV (test code = 1005) 91.1 fL MCH (test code = 1006) 32.9 PG MCHC (test code = 1007) 36.2 G/DL RDW (test code = 1038) 13.1 % NEUTROPHILS (test code = 1008) 43.9 % LYMPHOCYTES (test code = 1010) 40.7 % MONOCYTES (test code = 1011) 10.2 % EOSINOPHILS (test code = 1012) 4.3 % BASOPHILS (test code = 1013) 0.9 % PLATELET COUNT (test code = 1015) 318 K/UL VITAMIN D, 25 [id number] 00:00:00* Test Item Value Reference Range Interpretation Comme nts VITAMIN D, 25 OH (test code = 4958) 23 NG/ML C-REACTIVE [id number] 00:00:00* Test Item Value Reference Range Interpretation Comme nts C-REACTIVE PROTEIN (test cod e = 3513) 0.2 MG/DL RHEUMATOID FACTOR, [id number] 00:00:00* Test Item Value Reference Range Interpretation Comme nts RHEUMATOID FACTOR, QUANT (te st code = 3502) <10 IU/ML SEDIMENTATION [id number] 00:00:00* Test Item Value Reference Range Interpretation Comme nts SEDIMENTATION RATE (test cod e = 1017) 26 MM/HOUR COMPREHENSIVE METABOLIC [id number] 00:00:00* Test Item Value Reference Range Interpretation Comme nts GLUCOSE (test code = 2217) 77 MG/DL BUN (test code = 2208) 6 MG/DL CREATININE (test code = 2214) 0.63 MG/DL eGFR AMER. (test cod e = 69594) 111 ML/MIN/1.73 eGFR NON- AMER. (test code = 72549) 96 ML/MIN/1.73 CALC BUN/CREAT (test code = 2235) 10 RATIO SODIUM (test code = 2231) 142 MEQ/L POTASSIUM (test code = 2228) 4.0 MEQ/L CHLORIDE (test code = 2215) 100 MEQ/L CARBON DIOXIDE (test code = 2206) 25 MEQ/L CALCIUM (test code = 2209) 9.7 MG/DL PROTEIN, TOTAL (test code = 2229) 7.8 G/DL ALBUMIN (test code = 2201) 5.1 G/DL CALC GLOBULIN (test code = 2240) 2.7 G/DL CALC A/G RATIO (test code = 2234) 1.9 RATIO BILIRUBIN, TOTAL (test code = 2207) 0.3 MG/DL ALKALINE PHOSPHATASE (test code = 2204) 87 U/L AST (test code = 2218) 68 U/L ALT (test code = 2219) 50 U/L CBC W/AUTO [id number] 00:00:00* Test Item Value Reference Range Interpretation Comme nts WBC (test code = 1001) 4.2 K/UL RBC (test code = 1002) 4.25 M/UL HEMOGLOBIN (test code = 1003) 14.0 G/DL HEMATOCRIT (test code = 1004) 38.7 % MCV (test code = 1005) 91.1 fL MCH (test code = 1006) 32.9 PG MCHC (test code = 1007) 36.2 G/DL RDW (test code = 1038) 13.1 % NEUTROPHILS (test code = 1008) 43.9 % LYMPHOCYTES (test code = 1010) 40.7 % MONOCYTES (test code = 1011) 10.2 % EOSINOPHILS (test code = 1012) 4.3 % BASOPHILS (test code = 1013) 0.9 % PLATELET COUNT (test code = 1015) 318 K/UL VITAMIN D, 25 [id number] 00:00:00* Test Item Value Reference Range Interpretation Comme nts VITAMIN D, 25 OH (test code = 4958) 23 NG/ML C-REACTIVE [id number] 00:00:00* Test Item Value Reference Range Interpretation Comme nts C-REACTIVE PROTEIN (test cod e = 3513) 0.2 MG/DL RHEUMATOID FACTOR, [id number] 00:00:00* Test Item Value Reference Range Interpretation Comme nts RHEUMATOID FACTOR, QUANT (te st code = 3502) <10 IU/ML SEDIMENTATION [id number] 00:00:00* Test Item Value Reference Range Interpretation Comme nts SEDIMENTATION RATE (test cod e = 1017) 26 MM/HOUR COMPREHENSIVE METABOLIC [id number] 00:00:00* Test Item Value Reference Range Interpretation Comme nts GLUCOSE (test code = 2217) 77 MG/DL BUN (test code = 2208) 6 MG/DL CREATININE (test code = 2214) 0.63 MG/DL eGFR AMER. (test cod e = 06277) 111 ML/MIN/1.73 eGFR NON- AMER. (test code = 10862) 96 ML/MIN/1.73 CALC BUN/CREAT (test code = 2235) 10 RATIO SODIUM (test code = 2231) 142 MEQ/L POTASSIUM (test code = 2228) 4.0 MEQ/L CHLORIDE (test code = 2215) 100 MEQ/L CARBON DIOXIDE (test code = 2206) 25 MEQ/L CALCIUM (test code = 2209) 9.7 MG/DL PROTEIN, TOTAL (test code = 2229) 7.8 G/DL ALBUMIN (test code = 2201) 5.1 G/DL CALC GLOBULIN (test code = 2240) 2.7 G/DL CALC A/G RATIO (test code = 2234) 1.9 RATIO BILIRUBIN, TOTAL (test code = 2207) 0.3 MG/DL ALKALINE PHOSPHATASE (test code = 2204) 87 U/L AST (test code = 2218) 68 U/L ALT (test code = 2219) 50 U/L CBC W/AUTO [id number] 00:00:00* Test Item Value Reference Range Interpretation Comme nts WBC (test code = 1001) 4.2 K/UL RBC (test code = 1002) 4.25 M/UL HEMOGLOBIN (test code = 1003) 14.0 G/DL HEMATOCRIT (test code = 1004) 38.7 % MCV (test code = 1005) 91.1 fL MCH (test code = 1006) 32.9 PG MCHC (test code = 1007) 36.2 G/DL RDW (test code = 1038) 13.1 % NEUTROPHILS (test code = 1008) 43.9 % LYMPHOCYTES (test code = 1010) 40.7 % MONOCYTES (test code = 1011) 10.2 % EOSINOPHILS (test code = 1012) 4.3 % BASOPHILS (test code = 1013) 0.9 % PLATELET COUNT (test code = 1015) 318 K/UL VITAMIN D, 25 [id number] 00:00:00* Test Item Value Reference Range Interpretation Comme nts VITAMIN D, 25 OH (test code = 4958) 23 NG/ML C-REACTIVE [id number] 00:00:00* Test Item Value Reference Range Interpretation Comme nts C-REACTIVE PROTEIN (test cod e = 3513) 0.2 MG/DL RHEUMATOID FACTOR, [id number] 00:00:00* Test Item Value Reference Range Interpretation Comme nts RHEUMATOID FACTOR, QUANT (te st code = 3502) <10 IU/ML SEDIMENTATION [id number] 00:00:00* Test Item Value Reference Range Interpretation Comme nts SEDIMENTATION RATE (test cod e = 1017) 26 MM/HOUR COMPREHENSIVE METABOLIC [id number] 00:00:00* Test Item Value Reference Range Interpretation Comme nts GLUCOSE (test code = 2217) 77 MG/DL BUN (test code = 2208) 6 MG/DL CREATININE (test code = 2214) 0.63 MG/DL eGFR AMER. (test cod e = 18811) 111 ML/MIN/1.73 eGFR NON- AMER. (test code = 83748) 96 ML/MIN/1.73 CALC BUN/CREAT (test code = 2235) 10 RATIO SODIUM (test code = 2231) 142 MEQ/L POTASSIUM (test code = 2228) 4.0 MEQ/L CHLORIDE (test code = 2215) 100 MEQ/L CARBON DIOXIDE (test code = 2206) 25 MEQ/L CALCIUM (test code = 2209) 9.7 MG/DL PROTEIN, TOTAL (test code = 2229) 7.8 G/DL ALBUMIN (test code = 2201) 5.1 G/DL CALC GLOBULIN (test code = 2240) 2.7 G/DL CALC A/G RATIO (test code = 2234) 1.9 RATIO BILIRUBIN, TOTAL (test code = 2207) 0.3 MG/DL ALKALINE PHOSPHATASE (test code = 2204) 87 U/L AST (test code = 2218) 68 U/L ALT (test code = 2219) 50 U/L CBC W/AUTO [id number] 00:00:00* Test Item Value Reference Range Interpretation Comme nts WBC (test code = 1001) 4.2 K/UL RBC (test code = 1002) 4.25 M/UL HEMOGLOBIN (test code = 1003) 14.0 G/DL HEMATOCRIT (test code = 1004) 38.7 % MCV (test code = 1005) 91.1 fL MCH (test code = 1006) 32.9 PG MCHC (test code = 1007) 36.2 G/DL RDW (test code = 1038) 13.1 % NEUTROPHILS (test code = 1008) 43.9 % LYMPHOCYTES (test code = 1010) 40.7 % MONOCYTES (test code = 1011) 10.2 % EOSINOPHILS (test code = 1012) 4.3 % BASOPHILS (test code = 1013) 0.9 % PLATELET COUNT (test code = 1015) 318 K/UL VITAMIN D, 25 [id number] 00:00:00* Test Item Value Reference Range Interpretation Comme nts VITAMIN D, 25 OH (test code = 4958) 23 NG/ML C-REACTIVE [id number] 00:00:00* Test Item Value Reference Range Interpretation Comme nts C-REACTIVE PROTEIN (test cod e = 3513) 0.2 MG/DL RHEUMATOID FACTOR, [id number] 00:00:00* Test Item Value Reference Range Interpretation Comme nts RHEUMATOID FACTOR, QUANT (te st code = 3502) <10 IU/ML SEDIMENTATION [id number] 00:00:00* Test Item Value Reference Range Interpretation Comme nts SEDIMENTATION RATE (test cod e = 1017) 26 MM/HOUR COMPREHENSIVE METABOLIC [id number] 00:00:00* Test Item Value Reference Range Interpretation Comme nts GLUCOSE (test code = 2217) 77 MG/DL BUN (test code = 2208) 6 MG/DL CREATININE (test code = 2214) 0.63 MG/DL eGFR AMER. (test cod e = 53725) 111 ML/MIN/1.73 eGFR NON- AMER. (test code = 68762) 96 ML/MIN/1.73 CALC BUN/CREAT (test code = 2235) 10 RATIO SODIUM (test code = 2231) 142 MEQ/L POTASSIUM (test code = 2228) 4.0 MEQ/L CHLORIDE (test code = 2215) 100 MEQ/L CARBON DIOXIDE (test code = 2206) 25 MEQ/L CALCIUM (test code = 2209) 9.7 MG/DL PROTEIN, TOTAL (test code = 2229) 7.8 G/DL ALBUMIN (test code = 2201) 5.1 G/DL CALC GLOBULIN (test code = 2240) 2.7 G/DL CALC A/G RATIO (test code = 2234) 1.9 RATIO BILIRUBIN, TOTAL (test code = 2207) 0.3 MG/DL ALKALINE PHOSPHATASE (test code = 2204) 87 U/L AST (test code = 2218) 68 U/L ALT (test code = 2219) 50 U/L CBC W/AUTO [id number] 00:00:00* Test Item Value Reference Range Interpretation Comme nts WBC (test code = 1001) 4.2 K/UL RBC (test code = 1002) 4.25 M/UL HEMOGLOBIN (test code = 1003) 14.0 G/DL HEMATOCRIT (test code = 1004) 38.7 % MCV (test code = 1005) 91.1 fL MCH (test code = 1006) 32.9 PG MCHC (test code = 1007) 36.2 G/DL RDW (test code = 1038) 13.1 % NEUTROPHILS (test code = 1008) 43.9 % LYMPHOCYTES (test code = 1010) 40.7 % MONOCYTES (test code = 1011) 10.2 % EOSINOPHILS (test code = 1012) 4.3 % BASOPHILS (test code = 1013) 0.9 % PLATELET COUNT (test code = 1015) 318 K/UL VITAMIN D, 25 [id number] 00:00:00* Test Item Value Reference Range Interpretation Comme [facility] VITAMIN D, 25 OH (test code = 4958) 23 NG/ML Topher Cam AustinC-REACTIVE [id number] 00:00:00* Test Item Value Reference Range Interpretation Comme nts C-REACTIVE PROTEIN (test cod e = 3513) 0.2 MG/DL Topher BrownRHEUMATOID FACTOR, [id number] 00:00:00* Test Item Value Reference Range Interpretation Comme nts RHEUMATOID FACTOR, QUANT (te st code = 3502) <10 IU/ML Topher Cam AustinSEDIMENTATION [id number] 00:00:00* Test Item Value Reference Range Interpretation Comme nts SEDIMENTATION RATE (test cod e = 1017) 26 MM/HOUR Topher BrownCOMPREHENSIVE METABOLIC [id number] 00:00:00* Test Item Value Reference Range Interpretation Comme nts GLUCOSE (test code = 2217) 77 MG/DL BUN (test code = 2208) 6 MG/DL CREATININE (test code = 2214) 0.63 MG/DL eGFR AMER. (test cod e = 04612) 111 ML/MIN/1.73 eGFR NON- AMER. (test code = 67532) 96 ML/MIN/1.73 CALC BUN/CREAT (test code = 2235) 10 RATIO SODIUM (test code = 2231) 142 MEQ/L POTASSIUM (test code = 2228) 4.0 MEQ/L CHLORIDE (test code = 2215) 100 MEQ/L CARBON DIOXIDE (test code = 2206) 25 MEQ/L CALCIUM (test code = 2209) 9.7 MG/DL PROTEIN, TOTAL (test code = 2229) 7.8 G/DL ALBUMIN (test code = 2201) 5.1 G/DL CALC GLOBULIN (test code = 2240) 2.7 G/DL CALC A/G RATIO (test code = 2234) 1.9 RATIO BILIRUBIN, TOTAL (test code = 2207) 0.3 MG/DL ALKALINE PHOSPHATASE (test code = 2204) 87 U/L AST (test code = 2218) 68 U/L ALT (test code = 2219) 50 U/L Topher BrownCBC W/AUTO [id number] 00:00:00* Test Item Value Reference Range Interpretation Comme nts WBC (test code = 1001) 4.2 K/UL RBC (test code = 1002) 4.25 M/UL HEMOGLOBIN (test code = 1003) 14.0 G/DL HEMATOCRIT (test code = 1004) 38.7 % MCV (test code = 1005) 91.1 fL MCH (test code = 1006) 32.9 PG MCHC (test code = 1007) 36.2 G/DL RDW (test code = 1038) 13.1 % NEUTROPHILS (test code = 1008) 43.9 % LYMPHOCYTES (test code = 1010) 40.7 % MONOCYTES (test code = 1011) 10.2 % EOSINOPHILS (test code = 1012) 4.3 % BASOPHILS (test code = 1013) 0.9 % PLATELET COUNT (test code = 1015) 318 K/UL Topher BrownVITAMIN D, 25 [id number] 00:00:00* Test Item Value Reference Range Interpretation Comme nts VITAMIN D, 25 OH (test code = 4958) 23 NG/ML Topher BrownC-REACTIVE [id number] 00:00:00* Test Item Value Reference Range Interpretation Comme nts C-REACTIVE PROTEIN (test cod e = 3513) 0.2 MG/DL Topher BrownRHEUMATOID FACTOR, [id number] 00:00:00* Test Item Value Reference Range Interpretation Comme nts RHEUMATOID FACTOR, QUANT (te st code = 3502) <10 IU/ML Topher Cam AustinSEDIMENTATION [id number] 00:00:00* Test Item Value Reference Range Interpretation Comme nts SEDIMENTATION RATE (test cod e = 1017) 26 MM/HOUR Topher BrownCOMPREHENSIVE METABOLIC [id number] 00:00:00* Test Item Value Reference Range Interpretation Comme nts GLUCOSE (test code = 2217) 77 MG/DL BUN (test code = 2208) 6 MG/DL CREATININE (test code = 2214) 0.63 MG/DL eGFR AMER. (test cod e = 13580) 111 ML/MIN/1.73 eGFR NON- AMER. (test code = 85229) 96 ML/MIN/1.73 CALC BUN/CREAT (test code = 2235) 10 RATIO SODIUM (test code = 2231) 142 MEQ/L POTASSIUM (test code = 2228) 4.0 MEQ/L CHLORIDE (test code = 2215) 100 MEQ/L CARBON DIOXIDE (test code = 2206) 25 MEQ/L CALCIUM (test code = 2209) 9.7 MG/DL PROTEIN, TOTAL (test code = 2229) 7.8 G/DL ALBUMIN (test code = 2201) 5.1 G/DL CALC GLOBULIN (test code = 2240) 2.7 G/DL CALC A/G RATIO (test code = 2234) 1.9 RATIO BILIRUBIN, TOTAL (test code = 2207) 0.3 MG/DL ALKALINE PHOSPHATASE (test code = 2204) 87 U/L AST (test code = 2218) 68 U/L ALT (test code = 2219) 50 U/L Topher BrownCOMPREHENSIVE METABOLIC [id number] 00:00:00* Test Item Value Reference Range Interpretation Comme nts GLUCOSE (test code = 2217) 77 MG/DL BUN (test code = 2208) 6 MG/DL CREATININE (test code = 2214) 0.63 MG/DL eGFR AMER. (test cod e = 29560) 111 ML/MIN/1.73 eGFR NON- AMER. (test code = 86770) 96 ML/MIN/1.73 CALC BUN/CREAT (test code = 2235) 10 RATIO SODIUM (test code = 2231) 142 MEQ/L POTASSIUM (test code = 2228) 4.0 MEQ/L CHLORIDE (test code = 2215) 100 MEQ/L CARBON DIOXIDE (test code = 2206) 25 MEQ/L CALCIUM (test code = 2209) 9.7 MG/DL PROTEIN, TOTAL (test code = 2229) 7.8 G/DL ALBUMIN (test code = 2201) 5.1 G/DL CALC GLOBULIN (test code = 2240) 2.7 G/DL CALC A/G RATIO (test code = 2234) 1.9 RATIO BILIRUBIN, TOTAL (test code = 2207) 0.3 MG/DL ALKALINE PHOSPHATASE (test code = 2204) 87 U/L AST (test code = 2218) 68 U/L ALT (test code = 2219) 50 U/L [facility] [id number] 00:00:00* Test Item Value Reference Range Interpretation Comme nts WBC (test code = 1001) 4.2 K/UL RBC (test code = 1002) 4.25 M/UL HEMOGLOBIN (test code = 1003) 14.0 G/DL HEMATOCRIT (test code = 1004) 38.7 % MCV (test code = 1005) 91.1 fL MCH (test code = 1006) 32.9 PG MCHC (test code = 1007) 36.2 G/DL RDW (test code = 1038) 13.1 % NEUTROPHILS (test code = 1008) 43.9 % LYMPHOCYTES (test code = 1010) 40.7 % MONOCYTES (test code = 1011) 10.2 % EOSINOPHILS (test code = 1012) 4.3 % BASOPHILS (test code = 1013) 0.9 % PLATELET COUNT (test code = 1015) 318 K/UL Topher BrownVITAMIN D, 25 [id number] 00:00:00* Test Item Value Reference Range Interpretation Comme [facility] VITAMIN D, 25 OH (test code = 4958) 23 NG/ML Topher BrownC-REACTIVE [id number] 00:00:00* Test Item Value Reference Range Interpretation Comme nts C-REACTIVE PROTEIN (test cod e = 3513) 0.2 MG/DL Topher BrownRHEUMATOID FACTOR, [id number] 00:00:00* Test Item Value Reference Range Interpretation Comme [facility] RHEUMATOID FACTOR, QUANT (te st code = 3502) <10 IU/ML Topher Cam AustinSEDIMENTATION [id number] 00:00:00* Test Item Value Reference Range Interpretation Comme nts SEDIMENTATION RATE (test cod e = 1017) 26 MM/HOUR Topher Cam AustinCOMPREHENSIVE METABOLIC [id number] 00:00:00* Test Item Value Reference Range Interpretation Comme nts GLUCOSE (test code = 2217) 77 MG/DL BUN (test code = 2208) 6 MG/DL CREATININE (test code = 2214) 0.63 MG/DL eGFR AMER. (test cod e = 16862) 111 ML/MIN/1.73 eGFR NON- AMER. (test code = 56702) 96 ML/MIN/1.73 CALC BUN/CREAT (test code = 2235) 10 RATIO SODIUM (test code = 2231) 142 MEQ/L POTASSIUM (test code = 2228) 4.0 MEQ/L CHLORIDE (test code = 2215) 100 MEQ/L CARBON DIOXIDE (test code = 2206) 25 MEQ/L CALCIUM (test code = 2209) 9.7 MG/DL PROTEIN, TOTAL (test code = 2229) 7.8 G/DL ALBUMIN (test code = 2201) 5.1 G/DL CALC GLOBULIN (test code = 2240) 2.7 G/DL CALC A/G RATIO (test code = 2234) 1.9 RATIO BILIRUBIN, TOTAL (test code = 2207) 0.3 MG/DL ALKALINE PHOSPHATASE (test code = 2204) 87 U/L AST (test code = 2218) 68 U/L ALT (test code = 2219) 50 U/L Topher BrownCBC W/AUTO [id number] 00:00:00* Test Item Value Reference Range Interpretation Comme nts WBC (test code = 1001) 4.2 K/UL RBC (test code = 1002) 4.25 M/UL HEMOGLOBIN (test code = 1003) 14.0 G/DL HEMATOCRIT (test code = 1004) 38.7 % MCV (test code = 1005) 91.1 fL MCH (test code = 1006) 32.9 PG MCHC (test code = 1007) 36.2 G/DL RDW (test code = 1038) 13.1 % NEUTROPHILS (test code = 1008) 43.9 % LYMPHOCYTES (test code = 1010) 40.7 % MONOCYTES (test code = 1011) 10.2 % EOSINOPHILS (test code = 1012) 4.3 % BASOPHILS (test code = 1013) 0.9 % PLATELET COUNT (test code = 1015) 318 K/UL Topher BrownVITAMIN D, 25 [id number] 00:00:00* Test Item Value Reference Range Interpretation Comme [facility] VITAMIN D, 25 OH (test code = 4958) 23 NG/ML Topher BrownC-REACTIVE [id number] 00:00:00* Test Item Value Reference Range Interpretation Comme [facility] C-REACTIVE PROTEIN (test cod e = 3513) 0.2 MG/DL Topher BrownRHEUMATOID FACTOR, [id number] 00:00:00* Test Item Value Reference Range Interpretation Comme [facility] RHEUMATOID FACTOR, QUANT (te st code = 3502) <10 IU/ML Topher Cam KevinSEDIMENTATION [id number] 00:00:00* Test Item Value Reference Range Interpretation Comme nts SEDIMENTATION RATE (test cod e = 1017) 26 MM/HOUR Topher BrownCBC W/AUTO [id number] 00:00:00* Test Item Value Reference Range Interpretation Comme nts WBC (test code = 1001) 4.2 K/UL RBC (test code = 1002) 4.25 M/UL HEMOGLOBIN (test code = 1003) 14.0 G/DL HEMATOCRIT (test code = 1004) 38.7 % MCV (test code = 1005) 91.1 fL MCH (test code = 1006) 32.9 PG MCHC (test code = 1007) 36.2 G/DL RDW (test code = 1038) 13.1 % NEUTROPHILS (test code = 1008) 43.9 % LYMPHOCYTES (test code = 1010) 40.7 % MONOCYTES (test code = 1011) 10.2 % EOSINOPHILS (test code = 1012) 4.3 % BASOPHILS (test code = 1013) 0.9 % PLATELET COUNT (test code = 1015) 318 K/UL Topher BrownVITAMIN D, 25 [id number] 00:00:00* Test Item Value Reference Range Interpretation Comme nts VITAMIN D, 25 OH (test code = 4958) 23 NG/ML Topher BrownC-REACTIVE [id number] 00:00:00* Test Item Value Reference Range Interpretation Comme nts C-REACTIVE PROTEIN (test cod e = 3513) 0.2 MG/DL Topher BrownRHEUMATOID FACTOR, [id number] 00:00:00* Test Item Value Reference Range Interpretation Comme [facility] RHEUMATOID FACTOR, QUANT (te st code = 3502) <10 IU/ML Topher Cam AustinSEDIMENTATION [id number] 00:00:00* Test Item Value Reference Range Interpretation Comme nts SEDIMENTATION RATE (test cod e = 1017) 26 MM/HOUR Topher BrownCOMPREHENSIVE METABOLIC [id number] 00:00:00* Test Item Value Reference Range Interpretation Comme nts GLUCOSE (test code = 2217) 77 MG/DL BUN (test code = 2208) 6 MG/DL CREATININE (test code = 2214) 0.63 MG/DL eGFR AMER. (test cod e = 69066) 111 ML/MIN/1.73 eGFR NON- AMER. (test code = 26987) 96 ML/MIN/1.73 CALC BUN/CREAT (test code = 2235) 10 RATIO SODIUM (test code = 2231) 142 MEQ/L POTASSIUM (test code = 2228) 4.0 MEQ/L CHLORIDE (test code = 2215) 100 MEQ/L CARBON DIOXIDE (test code = 2206) 25 MEQ/L CALCIUM (test code = 2209) 9.7 MG/DL PROTEIN, TOTAL (test code = 2229) 7.8 G/DL ALBUMIN (test code = 2201) 5.1 G/DL CALC GLOBULIN (test code = 2240) 2.7 G/DL CALC A/G RATIO (test code = 2234) 1.9 RATIO BILIRUBIN, TOTAL (test code = 2207) 0.3 MG/DL ALKALINE PHOSPHATASE (test code = 2204) 87 U/L AST (test code = 2218) 68 U/L ALT (test code = 2219) 50 U/L Topher BrownCBC W/AUTO [id number] 00:00:00* Test Item Value Reference Range Interpretation Comme nts WBC (test code = 1001) 4.2 K/UL RBC (test code = 1002) 4.25 M/UL HEMOGLOBIN (test code = 1003) 14.0 G/DL HEMATOCRIT (test code = 1004) 38.7 % MCV (test code = 1005) 91.1 fL MCH (test code = 1006) 32.9 PG MCHC (test code = 1007) 36.2 G/DL RDW (test code = 1038) 13.1 % NEUTROPHILS (test code = 1008) 43.9 % LYMPHOCYTES (test code = 1010) 40.7 % MONOCYTES (test code = 1011) 10.2 % EOSINOPHILS (test code = 1012) 4.3 % BASOPHILS (test code = 1013) 0.9 % PLATELET COUNT (test code = 1015) 318 K/UL Topher BrownVITAMIN D, 25 [id number] 00:00:00* Test Item Value Reference Range Interpretation Comme [facility] VITAMIN D, 25 OH (test code = 4958) 23 NG/ML Topher BrownC-REACTIVE [id number] 00:00:00* Test Item Value Reference Range Interpretation Comme [facility] C-REACTIVE PROTEIN (test cod e = 3513) 0.2 MG/DL Topher BrownRHEUMATOID FACTOR, [id number] 00:00:00* Test Item Value Reference Range Interpretation Comme nts RHEUMATOID FACTOR, QUANT (te st code = 3502) <10 IU/ML Topher Cam AustinSEDIMENTATION [id number] 00:00:00* Test Item Value Reference Range Interpretation Comme nts SEDIMENTATION RATE (test cod e = 1017) 26 MM/HOUR Topher BrownCOMPREHENSIVE METABOLIC [id number] 00:00:00* Test Item Value Reference Range Interpretation Comme nts GLUCOSE (test code = 2217) 77 MG/DL BUN (test code = 2208) 6 MG/DL CREATININE (test code = 2214) 0.63 MG/DL eGFR AMER. (test cod e = 38038) 111 ML/MIN/1.73 eGFR NON- AMER. (test code = 15215) 96 ML/MIN/1.73 CALC BUN/CREAT (test code = 2235) 10 RATIO SODIUM (test code = 2231) 142 MEQ/L POTASSIUM (test code = 2228) 4.0 MEQ/L CHLORIDE (test code = 2215) 100 MEQ/L CARBON DIOXIDE (test code = 2206) 25 MEQ/L CALCIUM (test code = 2209) 9.7 MG/DL PROTEIN, TOTAL (test code = 2229) 7.8 G/DL ALBUMIN (test code = 2201) 5.1 G/DL CALC GLOBULIN (test code = 2240) 2.7 G/DL CALC A/G RATIO (test code = 2234) 1.9 RATIO BILIRUBIN, TOTAL (test code = 2207) 0.3 MG/DL ALKALINE PHOSPHATASE (test code = 2204) 87 U/L AST (test code = 2218) 68 U/L ALT (test code = 2219) 50 U/L Topher BrownCBC W/AUTO [id number] 00:00:00* Test Item Value Reference Range Interpretation Comme nts WBC (test code = 1001) 4.2 K/UL RBC (test code = 1002) 4.25 M/UL HEMOGLOBIN (test code = 1003) 14.0 G/DL HEMATOCRIT (test code = 1004) 38.7 % MCV (test code = 1005) 91.1 fL MCH (test code = 1006) 32.9 PG MCHC (test code = 1007) 36.2 G/DL RDW (test code = 1038) 13.1 % NEUTROPHILS (test code = 1008) 43.9 % LYMPHOCYTES (test code = 1010) 40.7 % MONOCYTES (test code = 1011) 10.2 % EOSINOPHILS (test code = 1012) 4.3 % BASOPHILS (test code = 1013) 0.9 % PLATELET COUNT (test code = 1015) 318 K/UL Topher BrownVITAMIN D, 25 [id number] 00:00:00* Test Item Value Reference Range Interpretation Comme nts VITAMIN D, 25 OH (test code = 4958) 23 NG/ML Topher BrownC-REACTIVE [id number] 00:00:00* Test Item Value Reference Range Interpretation Comme nts C-REACTIVE PROTEIN (test cod e = 3513) 0.2 MG/DL Topher BrownRHEUMATOID FACTOR, [id number] 00:00:00* Test Item Value Reference Range Interpretation Comme nts RHEUMATOID FACTOR, QUANT (te st code = 3502) <10 IU/ML Topher Cam AustinSEDIMENTATION [id number] 00:00:00* Test Item Value Reference Range Interpretation Comme nts SEDIMENTATION RATE (test cod e = 1017) 26 MM/HOUR Topher BrownCOMPREHENSIVE METABOLIC [id number] 00:00:00* Test Item Value Reference Range Interpretation Comme nts GLUCOSE (test code = 2217) 77 MG/DL BUN (test code = 2208) 6 MG/DL CREATININE (test code = 2214) 0.63 MG/DL eGFR AMER. (test cod e = 55428) 111 ML/MIN/1.73 eGFR NON- AMER. (test code = 03520) 96 ML/MIN/1.73 CALC BUN/CREAT (test code = 2235) 10 RATIO SODIUM (test code = 2231) 142 MEQ/L POTASSIUM (test code = 2228) 4.0 MEQ/L CHLORIDE (test code = 2215) 100 MEQ/L CARBON DIOXIDE (test code = 2206) 25 MEQ/L CALCIUM (test code = 2209) 9.7 MG/DL PROTEIN, TOTAL (test code = 2229) 7.8 G/DL ALBUMIN (test code = 2201) 5.1 G/DL CALC GLOBULIN (test code = 2240) 2.7 G/DL CALC A/G RATIO (test code = 2234) 1.9 RATIO BILIRUBIN, TOTAL (test code = 2207) 0.3 MG/DL ALKALINE PHOSPHATASE (test code = 2204) 87 U/L AST (test code = 2218) 68 U/L ALT (test code = 2219) 50 U/L Topher BrownCBC W/AUTO [id number] 00:00:00* Test Item Value Reference Range Interpretation Comme nts WBC (test code = 1001) 4.2 K/UL RBC (test code = 1002) 4.25 M/UL HEMOGLOBIN (test code = 1003) 14.0 G/DL HEMATOCRIT (test code = 1004) 38.7 % MCV (test code = 1005) 91.1 fL MCH (test code = 1006) 32.9 PG MCHC (test code = 1007) 36.2 G/DL RDW (test code = 1038) 13.1 % NEUTROPHILS (test code = 1008) 43.9 % LYMPHOCYTES (test code = 1010) 40.7 % MONOCYTES (test code = 1011) 10.2 % EOSINOPHILS (test code = 1012) 4.3 % BASOPHILS (test code = 1013) 0.9 % PLATELET COUNT (test code = 1015) 318 K/UL Topher BrownVITAMIN D, 25 [id number] 00:00:00* Test Item Value Reference Range Interpretation Comme nts VITAMIN D, 25 OH (test code = 4958) 23 NG/ML Topher Cam KevinC-REACTIVE [id number] 00:00:00* Test Item Value Reference Range Interpretation Comme nts C-REACTIVE PROTEIN (test cod e = 3513) 0.2 MG/DL Topher Cam KevinRHEUMATOID FACTOR, [id number] 00:00:00* Test Item Value Reference Range Interpretation Comme nts RHEUMATOID FACTOR, QUANT (te st code = 3502) <10 IU/ML Topher Cam KevinSEDIMENTATION [id number] 00:00:00* Test Item Value Reference Range Interpretation Comme nts SEDIMENTATION RATE (test cod e = 1017) 26 MM/HOUR Topher BrownCOMPREHENSIVE METABOLIC [id number] 00:00:00* Test Item Value Reference Range Interpretation Comme nts GLUCOSE (test code = 2217) 77 MG/DL BUN (test code = 2208) 6 MG/DL CREATININE (test code = 2214) 0.63 MG/DL eGFR AMER. (test cod e = 73973) 111 ML/MIN/1.73 eGFR NON- AMER. (test code = 43677) 96 ML/MIN/1.73 CALC BUN/CREAT (test code = 2235) 10 RATIO SODIUM (test code = 2231) 142 MEQ/L POTASSIUM (test code = 2228) 4.0 MEQ/L CHLORIDE (test code = 2215) 100 MEQ/L CARBON DIOXIDE (test code = 2206) 25 MEQ/L CALCIUM (test code = 2209) 9.7 MG/DL PROTEIN, TOTAL (test code = 2229) 7.8 G/DL ALBUMIN (test code = 2201) 5.1 G/DL CALC GLOBULIN (test code = 2240) 2.7 G/DL CALC A/G RATIO (test code = 2234) 1.9 RATIO BILIRUBIN, TOTAL (test code = 2207) 0.3 MG/DL ALKALINE PHOSPHATASE (test code = 2204) 87 U/L AST (test code = 2218) 68 U/L ALT (test code = 2219) 50 U/L [facility] [id number] 00:00:00* Test Item Value Reference Range Interpretation Comme nts WBC (test code = 1001) 4.2 K/UL RBC (test code = 1002) 4.25 M/UL HEMOGLOBIN (test code = 1003) 14.0 G/DL HEMATOCRIT (test code = 1004) 38.7 % MCV (test code = 1005) 91.1 fL MCH (test code = 1006) 32.9 PG MCHC (test code = 1007) 36.2 G/DL RDW (test code = 1038) 13.1 % NEUTROPHILS (test code = 1008) 43.9 % LYMPHOCYTES (test code = 1010) 40.7 % MONOCYTES (test code = 1011) 10.2 % EOSINOPHILS (test code = 1012) 4.3 % BASOPHILS (test code = 1013) 0.9 % PLATELET COUNT (test code = 1015) 318 K/UL Topher BrownTHYROID II PROFILE (T3U, T4, T7, TSH)2016-05-20 00:00:00* Test Item Value Reference Range Interpretation Comme nts T3 UPTAKE (test code = 2817) 31.1 % T4 (THYROXINE) (test code = 2819) 3.9 UG/DL CALCULATED T7 (FTI) (test co de = 2820) 1.21 TSH (test code = 2821) 2.2 UIU/ML Topher BrownCOMPREHENSIVE METABOLIC [id number] 00:00:00* Test Item Value Reference Range Interpretation Comme nts GLUCOSE (test code = 2217) 96 MG/DL BUN (test code = 2208) 17 MG/DL CREATININE (test code = 2214) 0.60 MG/DL eGFR AMER. (test cod e = 65792) 113 ML/MIN/1.73 eGFR NON- AMER. (test code = 46467) 98 ML/MIN/1.73 CALC BUN/CREAT (test code = 2235) 28 RATIO SODIUM (test code = 2231) 141 MEQ/L POTASSIUM (test code = 2228) 4.3 MEQ/L CHLORIDE (test code = 2215) 101 MEQ/L CARBON DIOXIDE (test code = 2206) 24 MEQ/L CALCIUM (test code = 2209) 8.9 MG/DL PROTEIN, TOTAL (test code = 2229) 6.9 G/DL ALBUMIN (test code = 2201) 4.3 G/DL CALC GLOBULIN (test code = 2240) 2.6 G/DL CALC A/G RATIO (test code = 2234) 1.7 RATIO BILIRUBIN, TOTAL (test code = 2207) 0.2 MG/DL ALKALINE PHOSPHATASE (test code = 2204) 82 U/L AST (test code = 2218) 24 U/L ALT (test code = 2219) 17 U/L Topher BrownLIPID [id number] 00:00:00* Test Item Value Reference Range Interpretation Comme nts CHOLESTEROL (test code = 2210) 240 MG/DL TRIGLYCERIDES (test code = 2232) 373 MG/DL HDL CHOLESTEROL (test code = 2220) 77 MG/DL CALC LDL CHOL (test code = 2237) 88 MG/DL RISK RATIO LDL/HDL (test cod e = 2238) 1.15 RATIO Topher BrownCBC W/AUTO [id number] 00:00:00* Test Item Value Reference Range Interpretation Comme nts WBC (test code = 1001) 5.6 K/UL RBC (test code = 1002) 3.68 M/UL HEMOGLOBIN (test code = 1003) 11.9 G/DL HEMATOCRIT (test code = 1004) 34.5 % MCV (test code = 1005) 93.8 fL MCH (test code = 1006) 32.3 PG MCHC (test code = 1007) 34.5 G/DL RDW (test code = 1038) 11.3 % NEUTROPHILS (test code = 1008) 48.9 % LYMPHOCYTES (test code = 1010) 33.9 % MONOCYTES (test code = 1011) 11.7 % EOSINOPHILS (test code = 1012) 5.0 % BASOPHILS (test code = 1013) 0.5 % PLATELET COUNT (test code = 1015) 169 K/UL Topher BrownHEMOGLOBIN [id number] 00:00:00* Test Item Value Reference Range Interpretation Comme [facility] HEMOGLOBIN A1c (test code = 97109) 5.1 % THYROID II PROFILE (T3U, T4, T7, TSH)2016-05-20 00:00:00* Test Item Value Reference Range Interpretation Comme nts T3 UPTAKE (test code = 2817) 31.1 % T4 (THYROXINE) (test code = 2819) 3.9 UG/DL CALCULATED T7 (FTI) (test co de = 2820) 1.21 TSH (test code = 2821) 2.2 UIU/ML COMPREHENSIVE METABOLIC [id number] 00:00:00* Test Item Value Reference Range Interpretation Comme nts GLUCOSE (test code = 2217) 96 MG/DL BUN (test code = 2208) 17 MG/DL CREATININE (test code = 2214) 0.60 MG/DL eGFR AMER. (test cod e = 72173) 113 ML/MIN/1.73 eGFR NON- AMER. (test code = 10832) 98 ML/MIN/1.73 CALC BUN/CREAT (test code = 2235) 28 RATIO SODIUM (test code = 2231) 141 MEQ/L POTASSIUM (test code = 2228) 4.3 MEQ/L CHLORIDE (test code = 2215) 101 MEQ/L CARBON DIOXIDE (test code = 2206) 24 MEQ/L CALCIUM (test code = 2209) 8.9 MG/DL PROTEIN, TOTAL (test code = 2229) 6.9 G/DL ALBUMIN (test code = 2201) 4.3 G/DL CALC GLOBULIN (test code = 2240) 2.6 G/DL CALC A/G RATIO (test code = 2234) 1.7 RATIO BILIRUBIN, TOTAL (test code = 2207) 0.2 MG/DL ALKALINE PHOSPHATASE (test code = 2204) 82 U/L AST (test code = 2218) 24 U/L ALT (test code = 2219) 17 U/L LIPID [id number] 00:00:00* Test Item Value Reference Range Interpretation Comme nts CHOLESTEROL (test code = 2210) 240 MG/DL TRIGLYCERIDES (test code = 2232) 373 MG/DL HDL CHOLESTEROL (test code = 2220) 77 MG/DL CALC LDL CHOL (test code = 2237) 88 MG/DL RISK RATIO LDL/HDL (test cod e = 2238) 1.15 RATIO CBC W/AUTO [id number] 00:00:00* Test Item Value Reference Range Interpretation Comme nts WBC (test code = 1001) 5.6 K/UL RBC (test code = 1002) 3.68 M/UL HEMOGLOBIN (test code = 1003) 11.9 G/DL HEMATOCRIT (test code = 1004) 34.5 % MCV (test code = 1005) 93.8 fL MCH (test code = 1006) 32.3 PG MCHC (test code = 1007) 34.5 G/DL RDW (test code = 1038) 11.3 % NEUTROPHILS (test code = 1008) 48.9 % LYMPHOCYTES (test code = 1010) 33.9 % MONOCYTES (test code = 1011) 11.7 % EOSINOPHILS (test code = 1012) 5.0 % BASOPHILS (test code = 1013) 0.5 % PLATELET COUNT (test code = 1015) 169 K/UL HEMOGLOBIN [id number] 00:00:00* Test Item Value Reference Range Interpretation Comme nts HEMOGLOBIN A1c (test code = 37400) 5.1 % THYROID II PROFILE (T3U, T4, T7, TSH)2016-05-20 00:00:00* Test Item Value Reference Range Interpretation Comme nts T3 UPTAKE (test code = 2817) 31.1 % T4 (THYROXINE) (test code = 2819) 3.9 UG/DL CALCULATED T7 (FTI) (test co de = 2820) 1.21 TSH (test code = 2821) 2.2 UIU/ML COMPREHENSIVE METABOLIC [id number] 00:00:00* Test Item Value Reference Range Interpretation Comme nts GLUCOSE (test code = 2217) 96 MG/DL BUN (test code = 2208) 17 MG/DL CREATININE (test code = 2214) 0.60 MG/DL eGFR AMER. (test cod e = 93145) 113 ML/MIN/1.73 eGFR NON- AMER. (test code = 93126) 98 ML/MIN/1.73 CALC BUN/CREAT (test code = 2235) 28 RATIO SODIUM (test code = 2231) 141 MEQ/L POTASSIUM (test code = 2228) 4.3 MEQ/L CHLORIDE (test code = 2215) 101 MEQ/L CARBON DIOXIDE (test code = 2206) 24 MEQ/L CALCIUM (test code = 2209) 8.9 MG/DL PROTEIN, TOTAL (test code = 2229) 6.9 G/DL ALBUMIN (test code = 2201) 4.3 G/DL CALC GLOBULIN (test code = 2240) 2.6 G/DL CALC A/G RATIO (test code = 2234) 1.7 RATIO BILIRUBIN, TOTAL (test code = 2207) 0.2 MG/DL ALKALINE PHOSPHATASE (test code = 2204) 82 U/L AST (test code = 2218) 24 U/L ALT (test code = 2219) 17 U/L LIPID [id number] 00:00:00* Test Item Value Reference Range Interpretation Comme nts CHOLESTEROL (test code = 2210) 240 MG/DL TRIGLYCERIDES (test code = 2232) 373 MG/DL HDL CHOLESTEROL (test code = 2220) 77 MG/DL CALC LDL CHOL (test code = 2237) 88 MG/DL RISK RATIO LDL/HDL (test cod e = 2238) 1.15 RATIO CBC W/AUTO [id number] 00:00:00* Test Item Value Reference Range Interpretation Comme nts WBC (test code = 1001) 5.6 K/UL RBC (test code = 1002) 3.68 M/UL HEMOGLOBIN (test code = 1003) 11.9 G/DL HEMATOCRIT (test code = 1004) 34.5 % MCV (test code = 1005) 93.8 fL MCH (test code = 1006) 32.3 PG MCHC (test code = 1007) 34.5 G/DL RDW (test code = 1038) 11.3 % NEUTROPHILS (test code = 1008) 48.9 % LYMPHOCYTES (test code = 1010) 33.9 % MONOCYTES (test code = 1011) 11.7 % EOSINOPHILS (test code = 1012) 5.0 % BASOPHILS (test code = 1013) 0.5 % PLATELET COUNT (test code = 1015) 169 K/UL HEMOGLOBIN [id number] 00:00:00* Test Item Value Reference Range Interpretation Comme nts HEMOGLOBIN A1c (test code = 24231) 5.1 % THYROID II PROFILE (T3U, T4, T7, TSH)2016-05-20 00:00:00* Test Item Value Reference Range Interpretation Comme nts T3 UPTAKE (test code = 2817) 31.1 % T4 (THYROXINE) (test code = 2819) 3.9 UG/DL CALCULATED T7 (FTI) (test co de = 2820) 1.21 TSH (test code = 2821) 2.2 UIU/ML COMPREHENSIVE METABOLIC [id number] 00:00:00* Test Item Value Reference Range Interpretation Comme nts GLUCOSE (test code = 2217) 96 MG/DL BUN (test code = 2208) 17 MG/DL CREATININE (test code = 2214) 0.60 MG/DL eGFR AMER. (test cod e = 94656) 113 ML/MIN/1.73 eGFR NON- AMER. (test code = 11915) 98 ML/MIN/1.73 CALC BUN/CREAT (test code = 2235) 28 RATIO SODIUM (test code = 2231) 141 MEQ/L POTASSIUM (test code = 2228) 4.3 MEQ/L CHLORIDE (test code = 2215) 101 MEQ/L CARBON DIOXIDE (test code = 2206) 24 MEQ/L CALCIUM (test code = 2209) 8.9 MG/DL PROTEIN, TOTAL (test code = 2229) 6.9 G/DL ALBUMIN (test code = 2201) 4.3 G/DL CALC GLOBULIN (test code = 2240) 2.6 G/DL CALC A/G RATIO (test code = 2234) 1.7 RATIO BILIRUBIN, TOTAL (test code = 2207) 0.2 MG/DL ALKALINE PHOSPHATASE (test code = 2204) 82 U/L AST (test code = 2218) 24 U/L ALT (test code = 2219) 17 U/L LIPID [id number] 00:00:00* Test Item Value Reference Range Interpretation Comme nts CHOLESTEROL (test code = 2210) 240 MG/DL TRIGLYCERIDES (test code = 2232) 373 MG/DL HDL CHOLESTEROL (test code = 2220) 77 MG/DL CALC LDL CHOL (test code = 2237) 88 MG/DL RISK RATIO LDL/HDL (test cod e = 2238) 1.15 RATIO CBC W/AUTO [id number] 00:00:00* Test Item Value Reference Range Interpretation Comme nts WBC (test code = 1001) 5.6 K/UL RBC (test code = 1002) 3.68 M/UL HEMOGLOBIN (test code = 1003) 11.9 G/DL HEMATOCRIT (test code = 1004) 34.5 % MCV (test code = 1005) 93.8 fL MCH (test code = 1006) 32.3 PG MCHC (test code = 1007) 34.5 G/DL RDW (test code = 1038) 11.3 % NEUTROPHILS (test code = 1008) 48.9 % LYMPHOCYTES (test code = 1010) 33.9 % MONOCYTES (test code = 1011) 11.7 % EOSINOPHILS (test code = 1012) 5.0 % BASOPHILS (test code = 1013) 0.5 % PLATELET COUNT (test code = 1015) 169 K/UL HEMOGLOBIN [id number] 00:00:00* Test Item Value Reference Range Interpretation Comme nts HEMOGLOBIN A1c (test code = 33213) 5.1 % THYROID II PROFILE (T3U, T4, T7, TSH)2016-05-20 00:00:00* Test Item Value Reference Range Interpretation Comme nts T3 UPTAKE (test code = 2817) 31.1 % T4 (THYROXINE) (test code = 2819) 3.9 UG/DL CALCULATED T7 (FTI) (test co de = 2820) 1.21 TSH (test code = 2821) 2.2 UIU/ML COMPREHENSIVE METABOLIC [id number] 00:00:00* Test Item Value Reference Range Interpretation Comme nts GLUCOSE (test code = 2217) 96 MG/DL BUN (test code = 2208) 17 MG/DL CREATININE (test code = 2214) 0.60 MG/DL eGFR AMER. (test cod e = 80632) 113 ML/MIN/1.73 eGFR NON- AMER. (test code = 05433) 98 ML/MIN/1.73 CALC BUN/CREAT (test code = 2235) 28 RATIO SODIUM (test code = 2231) 141 MEQ/L POTASSIUM (test code = 2228) 4.3 MEQ/L CHLORIDE (test code = 2215) 101 MEQ/L CARBON DIOXIDE (test code = 2206) 24 MEQ/L CALCIUM (test code = 2209) 8.9 MG/DL PROTEIN, TOTAL (test code = 2229) 6.9 G/DL ALBUMIN (test code = 2201) 4.3 G/DL CALC GLOBULIN (test code = 2240) 2.6 G/DL CALC A/G RATIO (test code = 2234) 1.7 RATIO BILIRUBIN, TOTAL (test code = 2207) 0.2 MG/DL ALKALINE PHOSPHATASE (test code = 2204) 82 U/L AST (test code = 2218) 24 U/L ALT (test code = 2219) 17 U/L LIPID [id number] 00:00:00* Test Item Value Reference Range Interpretation Comme nts CHOLESTEROL (test code = 2210) 240 MG/DL TRIGLYCERIDES (test code = 2232) 373 MG/DL HDL CHOLESTEROL (test code = 2220) 77 MG/DL CALC LDL CHOL (test code = 2237) 88 MG/DL RISK RATIO LDL/HDL (test cod e = 2238) 1.15 RATIO CBC W/AUTO [id number] 00:00:00* Test Item Value Reference Range Interpretation Comme nts WBC (test code = 1001) 5.6 K/UL RBC (test code = 1002) 3.68 M/UL HEMOGLOBIN (test code = 1003) 11.9 G/DL HEMATOCRIT (test code = 1004) 34.5 % MCV (test code = 1005) 93.8 fL MCH (test code = 1006) 32.3 PG MCHC (test code = 1007) 34.5 G/DL RDW (test code = 1038) 11.3 % NEUTROPHILS (test code = 1008) 48.9 % LYMPHOCYTES (test code = 1010) 33.9 % MONOCYTES (test code = 1011) 11.7 % EOSINOPHILS (test code = 1012) 5.0 % BASOPHILS (test code = 1013) 0.5 % PLATELET COUNT (test code = 1015) 169 K/UL HEMOGLOBIN [id number] 00:00:00* Test Item Value Reference Range Interpretation Comme nts HEMOGLOBIN A1c (test code = 81928) 5.1 % THYROID II PROFILE (T3U, T4, T7, TSH)2016-05-20 00:00:00* Test Item Value Reference Range Interpretation Comme nts T3 UPTAKE (test code = 2817) 31.1 % T4 (THYROXINE) (test code = 2819) 3.9 UG/DL CALCULATED T7 (FTI) (test co de = 2820) 1.21 TSH (test code = 2821) 2.2 UIU/ML COMPREHENSIVE METABOLIC [id number] 00:00:00* Test Item Value Reference Range Interpretation Comme nts GLUCOSE (test code = 2217) 96 MG/DL BUN (test code = 2208) 17 MG/DL CREATININE (test code = 2214) 0.60 MG/DL eGFR AMER. (test cod e = 70960) 113 ML/MIN/1.73 eGFR NON- AMER. (test code = 44657) 98 ML/MIN/1.73 CALC BUN/CREAT (test code = 2235) 28 RATIO SODIUM (test code = 2231) 141 MEQ/L POTASSIUM (test code = 2228) 4.3 MEQ/L CHLORIDE (test code = 2215) 101 MEQ/L CARBON DIOXIDE (test code = 2206) 24 MEQ/L CALCIUM (test code = 2209) 8.9 MG/DL PROTEIN, TOTAL (test code = 2229) 6.9 G/DL ALBUMIN (test code = 2201) 4.3 G/DL CALC GLOBULIN (test code = 2240) 2.6 G/DL CALC A/G RATIO (test code = 2234) 1.7 RATIO BILIRUBIN, TOTAL (test code = 2207) 0.2 MG/DL ALKALINE PHOSPHATASE (test code = 2204) 82 U/L AST (test code = 2218) 24 U/L ALT (test code = 2219) 17 U/L COMPREHENSIVE METABOLIC [id number] 00:00:00* Test Item Value Reference Range Interpretation Comme nts GLUCOSE (test code = 2217) 96 MG/DL BUN (test code = 2208) 17 MG/DL CREATININE (test code = 2214) 0.60 MG/DL eGFR AMER. (test cod e = 20707) 113 ML/MIN/1.73 eGFR NON- AMER. (test code = 17210) 98 ML/MIN/1.73 CALC BUN/CREAT (test code = 2235) 28 RATIO SODIUM (test code = 2231) 141 MEQ/L POTASSIUM (test code = 2228) 4.3 MEQ/L CHLORIDE (test code = 2215) 101 MEQ/L CARBON DIOXIDE (test code = 2206) 24 MEQ/L CALCIUM (test code = 2209) 8.9 MG/DL PROTEIN, TOTAL (test code = 2229) 6.9 G/DL ALBUMIN (test code = 2201) 4.3 G/DL CALC GLOBULIN (test code = 2240) 2.6 G/DL CALC A/G RATIO (test code = 2234) 1.7 RATIO BILIRUBIN, TOTAL (test code = 2207) 0.2 MG/DL ALKALINE PHOSPHATASE (test code = 2204) 82 U/L AST (test code = 2218) 24 U/L ALT (test code = 2219) 17 U/L LIPID [id number] 00:00:00* Test Item Value Reference Range Interpretation Comme nts CHOLESTEROL (test code = 2210) 240 MG/DL TRIGLYCERIDES (test code = 2232) 373 MG/DL HDL CHOLESTEROL (test code = 2220) 77 MG/DL CALC LDL CHOL (test code = 2237) 88 MG/DL RISK RATIO LDL/HDL (test cod e = 2238) 1.15 RATIO CBC W/AUTO [id number] 00:00:00* Test Item Value Reference Range Interpretation Comme nts WBC (test code = 1001) 5.6 K/UL RBC (test code = 1002) 3.68 M/UL HEMOGLOBIN (test code = 1003) 11.9 G/DL HEMATOCRIT (test code = 1004) 34.5 % MCV (test code = 1005) 93.8 fL MCH (test code = 1006) 32.3 PG MCHC (test code = 1007) 34.5 G/DL RDW (test code = 1038) 11.3 % NEUTROPHILS (test code = 1008) 48.9 % LYMPHOCYTES (test code = 1010) 33.9 % MONOCYTES (test code = 1011) 11.7 % EOSINOPHILS (test code = 1012) 5.0 % BASOPHILS (test code = 1013) 0.5 % PLATELET COUNT (test code = 1015) 169 K/UL HEMOGLOBIN [id number] 00:00:00* Test Item Value Reference Range Interpretation Comme nts HEMOGLOBIN A1c (test code = 57409) 5.1 % LIPID [id number] 00:00:00* Test Item Value Reference Range Interpretation Comme nts CHOLESTEROL (test code = 2210) 240 MG/DL TRIGLYCERIDES (test code = 2232) 373 MG/DL HDL CHOLESTEROL (test code = 2220) 77 MG/DL CALC LDL CHOL (test code = 2237) 88 MG/DL RISK RATIO LDL/HDL (test cod e = 2238) 1.15 RATIO THYROID II PROFILE (T3U, T4, T7, TSH)2016-05-20 00:00:00* Test Item Value Reference Range Interpretation Comme nts T3 UPTAKE (test code = 2817) 31.1 % T4 (THYROXINE) (test code = 2819) 3.9 UG/DL CALCULATED T7 (FTI) (test co de = 2820) 1.21 TSH (test code = 2821) 2.2 UIU/ML CBC W/AUTO [id number] 00:00:00* Test Item Value Reference Range Interpretation Comme nts WBC (test code = 1001) 5.6 K/UL RBC (test code = 1002) 3.68 M/UL HEMOGLOBIN (test code = 1003) 11.9 G/DL HEMATOCRIT (test code = 1004) 34.5 % MCV (test code = 1005) 93.8 fL MCH (test code = 1006) 32.3 PG MCHC (test code = 1007) 34.5 G/DL RDW (test code = 1038) 11.3 % NEUTROPHILS (test code = 1008) 48.9 % LYMPHOCYTES (test code = 1010) 33.9 % MONOCYTES (test code = 1011) 11.7 % EOSINOPHILS (test code = 1012) 5.0 % BASOPHILS (test code = 1013) 0.5 % PLATELET COUNT (test code = 1015) 169 K/UL HEMOGLOBIN [id number] 00:00:00* Test Item Value Reference Range Interpretation Comme nts HEMOGLOBIN A1c (test code = 49033) 5.1 % THYROID II PROFILE (T3U, T4, T7, TSH)2016-05-20 00:00:00* Test Item Value Reference Range Interpretation Comme nts T3 UPTAKE (test code = 2817) 31.1 % T4 (THYROXINE) (test code = 2819) 3.9 UG/DL CALCULATED T7 (FTI) (test co de = 2820) 1.21 TSH (test code = 2821) 2.2 UIU/ML COMPREHENSIVE METABOLIC [id number] 00:00:00* Test Item Value Reference Range Interpretation Comme nts GLUCOSE (test code = 2217) 96 MG/DL BUN (test code = 2208) 17 MG/DL CREATININE (test code = 2214) 0.60 MG/DL eGFR AMER. (test cod e = 61347) 113 ML/MIN/1.73 eGFR NON- AMER. (test code = 12352) 98 ML/MIN/1.73 CALC BUN/CREAT (test code = 2235) 28 RATIO SODIUM (test code = 2231) 141 MEQ/L POTASSIUM (test code = 2228) 4.3 MEQ/L CHLORIDE (test code = 2215) 101 MEQ/L CARBON DIOXIDE (test code = 2206) 24 MEQ/L CALCIUM (test code = 2209) 8.9 MG/DL PROTEIN, TOTAL (test code = 2229) 6.9 G/DL ALBUMIN (test code = 2201) 4.3 G/DL CALC GLOBULIN (test code = 2240) 2.6 G/DL CALC A/G RATIO (test code = 2234) 1.7 RATIO BILIRUBIN, TOTAL (test code = 2207) 0.2 MG/DL ALKALINE PHOSPHATASE (test code = 2204) 82 U/L AST (test code = 2218) 24 U/L ALT (test code = 2219) 17 U/L LIPID [id number] 00:00:00* Test Item Value Reference Range Interpretation Comme nts CHOLESTEROL (test code = 2210) 240 MG/DL TRIGLYCERIDES (test code = 2232) 373 MG/DL HDL CHOLESTEROL (test code = 2220) 77 MG/DL CALC LDL CHOL (test code = 2237) 88 MG/DL RISK RATIO LDL/HDL (test cod e = 2238) 1.15 RATIO CBC W/AUTO [id number] 00:00:00* Test Item Value Reference Range Interpretation Comme nts WBC (test code = 1001) 5.6 K/UL RBC (test code = 1002) 3.68 M/UL HEMOGLOBIN (test code = 1003) 11.9 G/DL HEMATOCRIT (test code = 1004) 34.5 % MCV (test code = 1005) 93.8 fL MCH (test code = 1006) 32.3 PG MCHC (test code = 1007) 34.5 G/DL RDW (test code = 1038) 11.3 % NEUTROPHILS (test code = 1008) 48.9 % LYMPHOCYTES (test code = 1010) 33.9 % MONOCYTES (test code = 1011) 11.7 % EOSINOPHILS (test code = 1012) 5.0 % BASOPHILS (test code = 1013) 0.5 % PLATELET COUNT (test code = 1015) 169 K/UL HEMOGLOBIN [id number] 00:00:00* Test Item Value Reference Range Interpretation Comme nts HEMOGLOBIN A1c (test code = 57171) 5.1 % THYROID II PROFILE (T3U, T4, T7, TSH)[id number] 00:00:00* Test Item Value Reference Range Interpretation Comme nts T3 UPTAKE (test code = 2817) 31.1 % T4 (THYROXINE) (test code = 2819) 3.9 UG/DL CALCULATED T7 (FTI) (test co de = 2820) 1.21 TSH (test code = 2821) 2.2 UIU/ML COMPREHENSIVE METABOLIC [id number] 00:00:00* Test Item Value Reference Range Interpretation Comme nts GLUCOSE (test code = 2217) 96 MG/DL BUN (test code = 2208) 17 MG/DL CREATININE (test code = 2214) 0.60 MG/DL eGFR AMER. (test cod e = 17441) 113 ML/MIN/1.73 eGFR NON- AMER. (test code = 97767) 98 ML/MIN/1.73 CALC BUN/CREAT (test code = 2235) 28 RATIO SODIUM (test code = 2231) 141 MEQ/L POTASSIUM (test code = 2228) 4.3 MEQ/L CHLORIDE (test code = 2215) 101 MEQ/L CARBON DIOXIDE (test code = 2206) 24 MEQ/L CALCIUM (test code = 2209) 8.9 MG/DL PROTEIN, TOTAL (test code = 2229) 6.9 G/DL ALBUMIN (test code = 2201) 4.3 G/DL CALC GLOBULIN (test code = 2240) 2.6 G/DL CALC A/G RATIO (test code = 2234) 1.7 RATIO BILIRUBIN, TOTAL (test code = 2207) 0.2 MG/DL ALKALINE PHOSPHATASE (test code = 2204) 82 U/L AST (test code = 2218) 24 U/L ALT (test code = 2219) 17 U/L LIPID [id number] 00:00:00* Test Item Value Reference Range Interpretation Comme nts CHOLESTEROL (test code = 2210) 240 MG/DL TRIGLYCERIDES (test code = 2232) 373 MG/DL HDL CHOLESTEROL (test code = 2220) 77 MG/DL CALC LDL CHOL (test code = 2237) 88 MG/DL RISK RATIO LDL/HDL (test cod e = 2238) 1.15 RATIO CBC W/AUTO [id number] 00:00:00* Test Item Value Reference Range Interpretation Comme nts WBC (test code = 1001) 5.6 K/UL RBC (test code = 1002) 3.68 M/UL HEMOGLOBIN (test code = 1003) 11.9 G/DL HEMATOCRIT (test code = 1004) 34.5 % MCV (test code = 1005) 93.8 fL MCH (test code = 1006) 32.3 PG MCHC (test code = 1007) 34.5 G/DL RDW (test code = 1038) 11.3 % NEUTROPHILS (test code = 1008) 48.9 % LYMPHOCYTES (test code = 1010) 33.9 % MONOCYTES (test code = 1011) 11.7 % EOSINOPHILS (test code = 1012) 5.0 % BASOPHILS (test code = 1013) 0.5 % PLATELET COUNT (test code = 1015) 169 K/UL HEMOGLOBIN [id number] 00:00:00* Test Item Value Reference Range Interpretation Comme nts HEMOGLOBIN A1c (test code = 03674) 5.1 % Topher Cam MorganTHYROID II PROFILE (T3U, T4, T7, TSH)2016-05-20 00:00:00* Test Item Value Reference Range Interpretation Comme nts T3 UPTAKE (test code = 2817) 31.1 % T4 (THYROXINE) (test code = 2819) 3.9 UG/DL CALCULATED T7 (FTI) (test co de = 2820) 1.21 TSH (test code = 2821) 2.2 UIU/ML Topher Cam AustinCOMPREHENSIVE METABOLIC [id number] 00:00:00* Test Item Value Reference Range Interpretation Comme nts GLUCOSE (test code = 2217) 96 MG/DL BUN (test code = 2208) 17 MG/DL CREATININE (test code = 2214) 0.60 MG/DL eGFR AMER. (test cod e = 58712) 113 ML/MIN/1.73 eGFR NON- AMER. (test code = 93953) 98 ML/MIN/1.73 CALC BUN/CREAT (test code = 2235) 28 RATIO SODIUM (test code = 2231) 141 MEQ/L POTASSIUM (test code = 2228) 4.3 MEQ/L CHLORIDE (test code = 2215) 101 MEQ/L CARBON DIOXIDE (test code = 2206) 24 MEQ/L CALCIUM (test code = 2209) 8.9 MG/DL PROTEIN, TOTAL (test code = 2229) 6.9 G/DL ALBUMIN (test code = 2201) 4.3 G/DL CALC GLOBULIN (test code = 2240) 2.6 G/DL CALC A/G RATIO (test code = 2234) 1.7 RATIO BILIRUBIN, TOTAL (test code = 2207) 0.2 MG/DL ALKALINE PHOSPHATASE (test code = 2204) 82 U/L AST (test code = 2218) 24 U/L ALT (test code = 2219) 17 U/L Topher Cam AustinCOMPREHENSIVE METABOLIC [id number] 00:00:00* Test Item Value Reference Range Interpretation Comme nts GLUCOSE (test code = 2217) 96 MG/DL BUN (test code = 2208) 17 MG/DL CREATININE (test code = 2214) 0.60 MG/DL eGFR AMER. (test cod e = 20609) 113 ML/MIN/1.73 eGFR NON- AMER. (test code = 91673) 98 ML/MIN/1.73 CALC BUN/CREAT (test code = 2235) 28 RATIO SODIUM (test code = 2231) 141 MEQ/L POTASSIUM (test code = 2228) 4.3 MEQ/L CHLORIDE (test code = 2215) 101 MEQ/L CARBON DIOXIDE (test code = 2206) 24 MEQ/L CALCIUM (test code = 2209) 8.9 MG/DL PROTEIN, TOTAL (test code = 2229) 6.9 G/DL ALBUMIN (test code = 2201) 4.3 G/DL CALC GLOBULIN (test code = 2240) 2.6 G/DL CALC A/G RATIO (test code = 2234) 1.7 RATIO BILIRUBIN, TOTAL (test code = 2207) 0.2 MG/DL ALKALINE PHOSPHATASE (test code = 2204) 82 U/L AST (test code = 2218) 24 U/L ALT (test code = 2219) 17 U/L Topher BrownLIPID [id number] 00:00:00* Test Item Value Reference Range Interpretation Comme nts CHOLESTEROL (test code = 2210) 240 MG/DL TRIGLYCERIDES (test code = 2232) 373 MG/DL HDL CHOLESTEROL (test code = 2220) 77 MG/DL CALC LDL CHOL (test code = 2237) 88 MG/DL RISK RATIO LDL/HDL (test cod e = 2238) 1.15 RATIO Topher Tutu eKvinCBC W/AUTO [id number] 00:00:00* Test Item Value Reference Range Interpretation Comme nts WBC (test code = 1001) 5.6 K/UL RBC (test code = 1002) 3.68 M/UL HEMOGLOBIN (test code = 1003) 11.9 G/DL HEMATOCRIT (test code = 1004) 34.5 % MCV (test code = 1005) 93.8 fL MCH (test code = 1006) 32.3 PG MCHC (test code = 1007) 34.5 G/DL RDW (test code = 1038) 11.3 % NEUTROPHILS (test code = 1008) 48.9 % LYMPHOCYTES (test code = 1010) 33.9 % MONOCYTES (test code = 1011) 11.7 % EOSINOPHILS (test code = 1012) 5.0 % BASOPHILS (test code = 1013) 0.5 % PLATELET COUNT (test code = 1015) 169 K/UL Topher BrownHEMOGLOBIN [id number] 00:00:00* Test Item Value Reference Range Interpretation Comme nts HEMOGLOBIN A1c (test code = 35443) 5.1 % Topher BrownTHYROID II PROFILE (T3U, T4, T7, TSH)2016-05-20 00:00:00* Test Item Value Reference Range Interpretation Comme nts T3 UPTAKE (test code = 2817) 31.1 % T4 (THYROXINE) (test code = 2819) 3.9 UG/DL CALCULATED T7 (FTI) (test co de = 2820) 1.21 TSH (test code = 2821) 2.2 UIU/ML Topher BrownCOMPREHENSIVE METABOLIC [id number] 00:00:00* Test Item Value Reference Range Interpretation Comme nts GLUCOSE (test code = 2217) 96 MG/DL BUN (test code = 2208) 17 MG/DL CREATININE (test code = 2214) 0.60 MG/DL eGFR AMER. (test cod e = 24492) 113 ML/MIN/1.73 eGFR NON- AMER. (test code = 58096) 98 ML/MIN/1.73 CALC BUN/CREAT (test code = 2235) 28 RATIO SODIUM (test code = 2231) 141 MEQ/L POTASSIUM (test code = 2228) 4.3 MEQ/L CHLORIDE (test code = 2215) 101 MEQ/L CARBON DIOXIDE (test code = 2206) 24 MEQ/L CALCIUM (test code = 2209) 8.9 MG/DL PROTEIN, TOTAL (test code = 2229) 6.9 G/DL ALBUMIN (test code = 2201) 4.3 G/DL CALC GLOBULIN (test code = 2240) 2.6 G/DL CALC A/G RATIO (test code = 2234) 1.7 RATIO BILIRUBIN, TOTAL (test code = 2207) 0.2 MG/DL ALKALINE PHOSPHATASE (test code = 2204) 82 U/L AST (test code = 2218) 24 U/L ALT (test code = 2219) 17 U/L Topher BrownLIPID [id number] 00:00:00* Test Item Value Reference Range Interpretation Comme nts CHOLESTEROL (test code = 2210) 240 MG/DL TRIGLYCERIDES (test code = 2232) 373 MG/DL HDL CHOLESTEROL (test code = 2220) 77 MG/DL CALC LDL CHOL (test code = 2237) 88 MG/DL RISK RATIO LDL/HDL (test cod e = 2238) 1.15 RATIO Topher BrownCBC W/AUTO [id number] 00:00:00* Test Item Value Reference Range Interpretation Comme nts WBC (test code = 1001) 5.6 K/UL RBC (test code = 1002) 3.68 M/UL HEMOGLOBIN (test code = 1003) 11.9 G/DL HEMATOCRIT (test code = 1004) 34.5 % MCV (test code = 1005) 93.8 fL MCH (test code = 1006) 32.3 PG MCHC (test code = 1007) 34.5 G/DL RDW (test code = 1038) 11.3 % NEUTROPHILS (test code = 1008) 48.9 % LYMPHOCYTES (test code = 1010) 33.9 % MONOCYTES (test code = 1011) 11.7 % EOSINOPHILS (test code = 1012) 5.0 % BASOPHILS (test code = 1013) 0.5 % PLATELET COUNT (test code = 1015) 169 K/UL Topher BrownHEMOGLOBIN [id number] 00:00:00* Test Item Value Reference Range Interpretation Comme kimberley HEMOGLOBIN A1c (test code = 24672) 5.1 % Topher BrownTHYROID II PROFILE (T3U, T4, T7, TSH)2016-05-20 00:00:00* Test Item Value Reference Range Interpretation Comme nts T3 UPTAKE (test code = 2817) 31.1 % T4 (THYROXINE) (test code = 2819) 3.9 UG/DL CALCULATED T7 (FTI) (test co de = 2820) 1.21 TSH (test code = 2821) 2.2 UIU/ML Topher BrownCOMPREHENSIVE METABOLIC [id number] 00:00:00* Test Item Value Reference Range Interpretation Comme nts GLUCOSE (test code = 2217) 96 MG/DL BUN (test code = 2208) 17 MG/DL CREATININE (test code = 2214) 0.60 MG/DL eGFR AMER. (test cod e = 67879) 113 ML/MIN/1.73 eGFR NON- AMER. (test code = 20093) 98 ML/MIN/1.73 CALC BUN/CREAT (test code = 2235) 28 RATIO SODIUM (test code = 2231) 141 MEQ/L POTASSIUM (test code = 2228) 4.3 MEQ/L CHLORIDE (test code = 2215) 101 MEQ/L CARBON DIOXIDE (test code = 2206) 24 MEQ/L CALCIUM (test code = 2209) 8.9 MG/DL PROTEIN, TOTAL (test code = 2229) 6.9 G/DL ALBUMIN (test code = 2201) 4.3 G/DL CALC GLOBULIN (test code = 2240) 2.6 G/DL CALC A/G RATIO (test code = 2234) 1.7 RATIO BILIRUBIN, TOTAL (test code = 2207) 0.2 MG/DL ALKALINE PHOSPHATASE (test code = 2204) 82 U/L AST (test code = 2218) 24 U/L ALT (test code = 2219) 17 U/L Topher BrownLIPID [id number] 00:00:00* Test Item Value Reference Range Interpretation Comme nts CHOLESTEROL (test code = 2210) 240 MG/DL TRIGLYCERIDES (test code = 2232) 373 MG/DL HDL CHOLESTEROL (test code = 2220) 77 MG/DL CALC LDL CHOL (test code = 2237) 88 MG/DL RISK RATIO LDL/HDL (test cod e = 2238) 1.15 RATIO Topher BrownLIPID [id number] 00:00:00* Test Item Value Reference Range Interpretation Comme nts CHOLESTEROL (test code = 2210) 240 MG/DL TRIGLYCERIDES (test code = 2232) 373 MG/DL HDL CHOLESTEROL (test code = 2220) 77 MG/DL CALC LDL CHOL (test code = 2237) 88 MG/DL RISK RATIO LDL/HDL (test cod e = 2238) 1.15 RATIO Topher BrownCBC W/AUTO [id number] 00:00:00* Test Item Value Reference Range Interpretation Comme nts WBC (test code = 1001) 5.6 K/UL RBC (test code = 1002) 3.68 M/UL HEMOGLOBIN (test code = 1003) 11.9 G/DL HEMATOCRIT (test code = 1004) 34.5 % MCV (test code = 1005) 93.8 fL MCH (test code = 1006) 32.3 PG MCHC (test code = 1007) 34.5 G/DL RDW (test code = 1038) 11.3 % NEUTROPHILS (test code = 1008) 48.9 % LYMPHOCYTES (test code = 1010) 33.9 % MONOCYTES (test code = 1011) 11.7 % EOSINOPHILS (test code = 1012) 5.0 % BASOPHILS (test code = 1013) 0.5 % PLATELET COUNT (test code = 1015) 169 K/UL Topher BrownHEMOGLOBIN [id number] 00:00:00* Test Item Value Reference Range Interpretation Comme nts HEMOGLOBIN A1c (test code = 54643) 5.1 % Topher Cam KevinTHYROID II PROFILE (T3U, T4, T7, TSH)2016-05-20 00:00:00* Test Item Value Reference Range Interpretation Comme nts T3 UPTAKE (test code = 2817) 31.1 % T4 (THYROXINE) (test code = 2819) 3.9 UG/DL CALCULATED T7 (FTI) (test co de = 2820) 1.21 TSH (test code = 2821) 2.2 UIU/ML Topher BrownCBC W/AUTO [id number] 00:00:00* Test Item Value Reference Range Interpretation Comme nts WBC (test code = 1001) 5.6 K/UL RBC (test code = 1002) 3.68 M/UL HEMOGLOBIN (test code = 1003) 11.9 G/DL HEMATOCRIT (test code = 1004) 34.5 % MCV (test code = 1005) 93.8 fL MCH (test code = 1006) 32.3 PG MCHC (test code = 1007) 34.5 G/DL RDW (test code = 1038) 11.3 % NEUTROPHILS (test code = 1008) 48.9 % LYMPHOCYTES (test code = 1010) 33.9 % MONOCYTES (test code = 1011) 11.7 % EOSINOPHILS (test code = 1012) 5.0 % BASOPHILS (test code = 1013) 0.5 % PLATELET COUNT (test code = 1015) 169 K/UL Topher F AustinHEMOGLOBIN [id number] 00:00:00* Test Item Value Reference Range Interpretation Comme nts HEMOGLOBIN A1c (test code = 69955) 5.1 % Topher BrownTHYROID II PROFILE (T3U, T4, T7, TSH)2016-05-20 00:00:00* Test Item Value Reference Range Interpretation Comme nts T3 UPTAKE (test code = 2817) 31.1 % T4 (THYROXINE) (test code = 2819) 3.9 UG/DL CALCULATED T7 (FTI) (test co de = 2820) 1.21 TSH (test code = 2821) 2.2 UIU/ML Topher BrownCOMPREHENSIVE METABOLIC [id number] 00:00:00* Test Item Value Reference Range Interpretation Comme nts GLUCOSE (test code = 2217) 96 MG/DL BUN (test code = 2208) 17 MG/DL CREATININE (test code = 2214) 0.60 MG/DL eGFR AMER. (test cod e = 19981) 113 ML/MIN/1.73 eGFR NON- AMER. (test code = 24024) 98 ML/MIN/1.73 CALC BUN/CREAT (test code = 2235) 28 RATIO SODIUM (test code = 2231) 141 MEQ/L POTASSIUM (test code = 2228) 4.3 MEQ/L CHLORIDE (test code = 2215) 101 MEQ/L CARBON DIOXIDE (test code = 2206) 24 MEQ/L CALCIUM (test code = 2209) 8.9 MG/DL PROTEIN, TOTAL (test code = 2229) 6.9 G/DL ALBUMIN (test code = 2201) 4.3 G/DL CALC GLOBULIN (test code = 2240) 2.6 G/DL CALC A/G RATIO (test code = 2234) 1.7 RATIO BILIRUBIN, TOTAL (test code = 2207) 0.2 MG/DL ALKALINE PHOSPHATASE (test code = 2204) 82 U/L AST (test code = 2218) 24 U/L ALT (test code = 2219) 17 U/L Topher BrownLIPID [id number] 00:00:00* Test Item Value Reference Range Interpretation Comme nts CHOLESTEROL (test code = 2210) 240 MG/DL TRIGLYCERIDES (test code = 2232) 373 MG/DL HDL CHOLESTEROL (test code = 2220) 77 MG/DL CALC LDL CHOL (test code = 2237) 88 MG/DL RISK RATIO LDL/HDL (test cod e = 2238) 1.15 RATIO Topher BrownCBC W/AUTO [id number] 00:00:00* Test Item Value Reference Range Interpretation Comme nts WBC (test code = 1001) 5.6 K/UL RBC (test code = 1002) 3.68 M/UL HEMOGLOBIN (test code = 1003) 11.9 G/DL HEMATOCRIT (test code = 1004) 34.5 % MCV (test code = 1005) 93.8 fL MCH (test code = 1006) 32.3 PG MCHC (test code = 1007) 34.5 G/DL RDW (test code = 1038) 11.3 % NEUTROPHILS (test code = 1008) 48.9 % LYMPHOCYTES (test code = 1010) 33.9 % MONOCYTES (test code = 1011) 11.7 % EOSINOPHILS (test code = 1012) 5.0 % BASOPHILS (test code = 1013) 0.5 % PLATELET COUNT (test code = 1015) 169 K/UL Topher BrownHEMOGLOBIN [id number] 00:00:00* Test Item Value Reference Range Interpretation Comme nts HEMOGLOBIN A1c (test code = 71825) 5.1 % Topher BrownTHYROID II PROFILE (T3U, T4, T7, TSH)2016-05-20 00:00:00* Test Item Value Reference Range Interpretation Comme nts T3 UPTAKE (test code = 2817) 31.1 % T4 (THYROXINE) (test code = 2819) 3.9 UG/DL CALCULATED T7 (FTI) (test co de = 2820) 1.21 TSH (test code = 2821) 2.2 UIU/ML Topher BrownCOMPREHENSIVE METABOLIC [id number] 00:00:00* Test Item Value Reference Range Interpretation Comme nts GLUCOSE (test code = 2217) 96 MG/DL BUN (test code = 2208) 17 MG/DL CREATININE (test code = 2214) 0.60 MG/DL eGFR AMER. (test cod e = 38069) 113 ML/MIN/1.73 eGFR NON- AMER. (test code = 34342) 98 ML/MIN/1.73 CALC BUN/CREAT (test code = 2235) 28 RATIO SODIUM (test code = 2231) 141 MEQ/L POTASSIUM (test code = 2228) 4.3 MEQ/L CHLORIDE (test code = 2215) 101 MEQ/L CARBON DIOXIDE (test code = 2206) 24 MEQ/L CALCIUM (test code = 2209) 8.9 MG/DL PROTEIN, TOTAL (test code = 2229) 6.9 G/DL ALBUMIN (test code = 2201) 4.3 G/DL CALC GLOBULIN (test code = 2240) 2.6 G/DL CALC A/G RATIO (test code = 2234) 1.7 RATIO BILIRUBIN, TOTAL (test code = 2207) 0.2 MG/DL ALKALINE PHOSPHATASE (test code = 2204) 82 U/L AST (test code = 2218) 24 U/L ALT (test code = 2219) 17 U/L Topher BrownLIPID [id number] 00:00:00* Test Item Value Reference Range Interpretation Comme nts CHOLESTEROL (test code = 2210) 240 MG/DL TRIGLYCERIDES (test code = 2232) 373 MG/DL HDL CHOLESTEROL (test code = 2220) 77 MG/DL CALC LDL CHOL (test code = 2237) 88 MG/DL RISK RATIO LDL/HDL (test cod e = 2238) 1.15 RATIO Topher BrownCBC W/AUTO [id number] 00:00:00* Test Item Value Reference Range Interpretation Comme nts WBC (test code = 1001) 5.6 K/UL RBC (test code = 1002) 3.68 M/UL HEMOGLOBIN (test code = 1003) 11.9 G/DL HEMATOCRIT (test code = 1004) 34.5 % MCV (test code = 1005) 93.8 fL MCH (test code = 1006) 32.3 PG MCHC (test code = 1007) 34.5 G/DL RDW (test code = 1038) 11.3 % NEUTROPHILS (test code = 1008) 48.9 % LYMPHOCYTES (test code = 1010) 33.9 % MONOCYTES (test code = 1011) 11.7 % EOSINOPHILS (test code = 1012) 5.0 % BASOPHILS (test code = 1013) 0.5 % PLATELET COUNT (test code = 1015) 169 K/UL Topher BrownHEMOGLOBIN [id number] 00:00:00* Test Item Value Reference Range Interpretation Comme nts HEMOGLOBIN A1c (test code = 06258) 5.1 % Topher BrownTHYROID II PROFILE (T3U, T4, T7, TSH)2016-05-20 00:00:00* Test Item Value Reference Range Interpretation Comme nts T3 UPTAKE (test code = 2817) 31.1 % T4 (THYROXINE) (test code = 2819) 3.9 UG/DL CALCULATED T7 (FTI) (test co de = 2820) 1.21 TSH (test code = 2821) 2.2 UIU/ML Topher BrownCOMPREHENSIVE METABOLIC [id number] 00:00:00* Test Item Value Reference Range Interpretation Comme nts GLUCOSE (test code = 2217) 96 MG/DL BUN (test code = 2208) 17 MG/DL CREATININE (test code = 2214) 0.60 MG/DL eGFR AMER. (test cod e = 66833) 113 ML/MIN/1.73 eGFR NON- AMER. (test code = 65419) 98 ML/MIN/1.73 CALC BUN/CREAT (test code = 2235) 28 RATIO SODIUM (test code = 2231) 141 MEQ/L POTASSIUM (test code = 2228) 4.3 MEQ/L CHLORIDE (test code = 2215) 101 MEQ/L CARBON DIOXIDE (test code = 2206) 24 MEQ/L CALCIUM (test code = 2209) 8.9 MG/DL PROTEIN, TOTAL (test code = 2229) 6.9 G/DL ALBUMIN (test code = 2201) 4.3 G/DL CALC GLOBULIN (test code = 2240) 2.6 G/DL CALC A/G RATIO (test code = 2234) 1.7 RATIO BILIRUBIN, TOTAL (test code = 2207) 0.2 MG/DL ALKALINE PHOSPHATASE (test code = 2204) 82 U/L AST (test code = 2218) 24 U/L ALT (test code = 2219) 17 U/L Topher BrownLIPID [id number] 00:00:00* Test Item Value Reference Range Interpretation Comme nts CHOLESTEROL (test code = 2210) 240 MG/DL TRIGLYCERIDES (test code = 2232) 373 MG/DL HDL CHOLESTEROL (test code = 2220) 77 MG/DL CALC LDL CHOL (test code = 2237) 88 MG/DL RISK RATIO LDL/HDL (test cod e = 2238) 1.15 RATIO Topher BrownCBC W/AUTO [id number] 00:00:00* Test Item Value Reference Range Interpretation Comme nts WBC (test code = 1001) 5.6 K/UL RBC (test code = 1002) 3.68 M/UL HEMOGLOBIN (test code = 1003) 11.9 G/DL HEMATOCRIT (test code = 1004) 34.5 % MCV (test code = 1005) 93.8 fL MCH (test code = 1006) 32.3 PG MCHC (test code = 1007) 34.5 G/DL RDW (test code = 1038) 11.3 % NEUTROPHILS (test code = 1008) 48.9 % LYMPHOCYTES (test code = 1010) 33.9 % MONOCYTES (test code = 1011) 11.7 % EOSINOPHILS (test code = 1012) 5.0 % BASOPHILS (test code = 1013) 0.5 % PLATELET COUNT (test code = 1015) 169 K/UL Topher BrownHEMOGLOBIN [id number] 00:00:00* Test Item Value Reference Range Interpretation Comme nts HEMOGLOBIN A1c (test code = 11496) 5.1 % Topher BrownTHYROID II PROFILE (T3U, T4, T7, TSH)2016-05-20 00:00:00* Test Item Value Reference Range Interpretation Comme nts T3 UPTAKE (test code = 2817) 31.1 % T4 (THYROXINE) (test code = 2819) 3.9 UG/DL CALCULATED T7 (FTI) (test co de = 2820) 1.21 TSH (test code = 2821) 2.2 UIU/ML Topher BrownCOMPREHENSIVE METABOLIC [id number] 00:00:00* Test Item Value Reference Range Interpretation Comme nts GLUCOSE (test code = 2217) 96 MG/DL BUN (test code = 2208) 17 MG/DL CREATININE (test code = 2214) 0.60 MG/DL eGFR AMER. (test cod e = 51716) 113 ML/MIN/1.73 eGFR NON- AMER. (test code = 57235) 98 ML/MIN/1.73 CALC BUN/CREAT (test code = 2235) 28 RATIO SODIUM (test code = 2231) 141 MEQ/L POTASSIUM (test code = 2228) 4.3 MEQ/L CHLORIDE (test code = 2215) 101 MEQ/L CARBON DIOXIDE (test code = 2206) 24 MEQ/L CALCIUM (test code = 2209) 8.9 MG/DL PROTEIN, TOTAL (test code = 2229) 6.9 G/DL ALBUMIN (test code = 2201) 4.3 G/DL CALC GLOBULIN (test code = 2240) 2.6 G/DL CALC A/G RATIO (test code = 2234) 1.7 RATIO BILIRUBIN, TOTAL (test code = 2207) 0.2 MG/DL ALKALINE PHOSPHATASE (test code = 2204) 82 U/L AST (test code = 2218) 24 U/L ALT (test code = 2219) 17 U/L Topher BrownLIPID [id number] 00:00:00* Test Item Value Reference Range Interpretation Comme nts CHOLESTEROL (test code = 2210) 240 MG/DL TRIGLYCERIDES (test code = 2232) 373 MG/DL HDL CHOLESTEROL (test code = 2220) 77 MG/DL CALC LDL CHOL (test code = 2237) 88 MG/DL RISK RATIO LDL/HDL (test cod e = 2238) 1.15 RATIO Topher BrownCBC W/AUTO [id number] 00:00:00* Test Item Value Reference Range Interpretation Comme nts WBC (test code = 1001) 5.6 K/UL RBC (test code = 1002) 3.68 M/UL HEMOGLOBIN (test code = 1003) 11.9 G/DL HEMATOCRIT (test code = 1004) 34.5 % MCV (test code = 1005) 93.8 fL MCH (test code = 1006) 32.3 PG MCHC (test code = 1007) 34.5 G/DL RDW (test code = 1038) 11.3 % NEUTROPHILS (test code = 1008) 48.9 % LYMPHOCYTES (test code = 1010) 33.9 % MONOCYTES (test code = 1011) 11.7 % EOSINOPHILS (test code = 1012) 5.0 % BASOPHILS (test code = 1013) 0.5 % PLATELET COUNT (test code = 1015) 169 K/UL Topher BrownHEMOGLOBIN [id number] 00:00:00* Test Item Value Reference Range Interpretation Comme nts HEMOGLOBIN A1c (test code = 71391) 5.1 % Topher Brown Notes Date/Time Note Provider Source Topher Brown [facility]2025-02-07 00:00:00 Topher Foy [facility]2024-12-09 00:00:00 Topher Foy [facility]2024-12-02 00:00:00 Topher Foy [facility]2024-11-21 00:00:00 Topher Foy [facility]2024-11-01 00:00:00 Topher Foy [facility]2024-07-24 00:00:00 Topher Foy [facility]2024-05-20 00:00:00 Topher Foy [facility]2024-01-17 00:00:00 Topher Foy [facility]2023-08-07 09:09:53 Images from the original note were not included. Called patient for results. Patient verbalized understanding with no further questions. Gladys Mcpherson MD P Cardiology Nurse ELINA is normal. No PAD. Lela Garza [facility]
--- NOTE | 2024-10-25 10:26 | RAD REPORT ---
EXAM:Ribs Left CLINICAL HISTORY: Left rib pain FINDINGS: No fracture seen
--- NOTE | 2024-10-25 10:49 | EDPHYS ---
Physician Documentation [facility] Name: Sharmila Harris Age: 69 yrs Sex: Female : 1955 Arrival Date: 10/25/2024 Time: 08:57 Bed 20 Private MD: ED Physician Sunday Bill HPI: 10/25 11:19 This 69 yrs old Black Female presents to ER via EMS with complaints of Fall Injury. rt 11:19 Patient presents to the ED following a trip and fall. Patient landed onto the left rt lower rib margin reported pain to that area initially but states that she no longer has any ongoing pain. Denies hitting her head, loss of consciousness, other injuries. Symptoms are mild in severity, no other aggravating or alleviating factors.. Historical: - Allergies: 08:59 Bananas (Anaphylaxis); aa5 08:59 Codeine; aa5 08:59 PENICILLINS; aa5 - PMHx: 08:59 Anxiety; Back pain; Hypertension; Hypercholesterolemia; aa5 - Immunization history:: Adult Immunizations unknown. - Infectious Disease History:: Denies. - Social history:: Smoking status: Patient reports the use of cigarette tobacco products. - Family history:: not pertinent. ROS: 11:19 Constitutional: Negative for fever, chills, and weight loss, Respiratory: Negative for rt shortness of breath, cough, wheezing, and pleuritic chest pain, Abdomen/GI: Negative for abdominal pain, nausea, vomiting, diarrhea, and constipation, MS/Extremity: Negative for injury and deformity, Skin: Negative for injury, rash, and discoloration, Neuro: Negative for headache, weakness, numbness, tingling, and seizure, Exam: 11:19 Constitutional: This is a well developed, well nourished patient who is awake, alert, rt and in no acute distress. Head/Face: Normocephalic, atraumatic. Cardiovascular: Regular rate and rhythm with a normal S1 and S2. No gallops, murmurs, or rubs. Normal PMI, no JVD. No pulse deficits. Respiratory: Lungs have equal breath sounds bilaterally, clear to auscultation and percussion. No rales, rhonchi or wheezes noted. No increased work of breathing, no retractions or nasal flaring. Abdomen/GI: Soft, non-tender, with normal bowel sounds. No distension or tympany. No guarding or rebound. No evidence of tenderness throughout. Skin: Warm, dry with normal turgor. Normal color with no rashes, no lesions, and no evidence of cellulitis. MS/ Extremity: Pulses equal, no cyanosis. Neurovascular intact. Full, normal range of motion. 11:19 Chest/axilla: Tenderness to left lower rib margin, mild, no crepitus felt. Vital Signs: 08:59 BP 118 / 68; Pulse 78; Resp 15 S; Temp 98.2(TE); Pulse Ox 100% on R/A; Weight 61.23 kg aa5 (R); Height 5 ft. 5 in. (R); 11:01 BP 122 / 68; Pulse 73; Resp 17; Pulse Ox 99% on R/A; ap3 08:59 Body Mass Index 22.46 (61.23 kg, 165.1 cm) aa5 MDM: 09:15 Medical Screening Exam initiated rt 11:19 Differential diagnosis: Fracture, contusion. Data reviewed: vital signs, nurses notes, rt radiologic studies. Independent interpretation of the following test(s) in the Emergency Department X-Ray: My interpretation is No fracture seen on my interpretation of x-ray images. Test considered but Not performed: Other Details Patient reports clear trip and fall, low suspicion for syncopal event, EKG, labs are not indicated. Care significantly affected by the following chronic conditions: Hypertension. Counseling: I had a detailed discussion with the patient and/or guardian regarding the historical points, exam findings, and any diagnostic results supporting the discharge/admit diagnosis, radiology results, the need for outpatient follow up, to return to the emergency department if symptoms worsen or persist or if there are any questions or concerns that arise at home. Response to treatment: the patient's symptoms have markedly improved after treatment. 10/25 09:20 Order name: Ribs Left XRAY; Complete Time: 10:43 rt Administered Medications: No medications were administered Disposition Summary: 10/25/24 10:49 Discharge Ordered Notes: Location: Home rt Problem: new rt Symptoms: have improved rt Condition: Stable rt Diagnosis - Mechanical fall rt Followup: rt - With: Private Physician - When: 2 - 3 days - Reason: Discharge Instructions: - Discharge Summary Sheet rt - Fall Prevention in the Home, Adult rt Forms: - Medication Reconciliation Form rt - Antibiotic Education rt - Prescription Opioid Use rt - Patient Portal Instructions rt - Leadership Thank You Letter rt Signatures: Dispatcher [employer] Cherelle Joe RN RN aa5 Sunday Bill MD MD rt
--- NOTE | 2024-10-25 10:49 | ER ---
Nurse's Notes [facility] Name: Sharmila Harris Age: 69 yrs Sex: Female : 1955 Arrival Date: 10/25/2024 Time: 08:57 Bed 20 Private MD: Diagnosis: Mechanical fall Presentation: 10/25 08:59 Chief complaint: Patient states: tripped and fell on driveway, pt c/o left lower rib aa5 cage pain. Pt denies head injury, denies LOC. 08:59 Coronavirus screen: At this time, the client does not indicate any symptoms associated aa5 with coronavirus-19. Ebola Screen: Patient denies travel to an Ebola-affected area in the 21 days before illness onset. Initial Sepsis Screen: Does the patient meet any 2 criteria? No. Patient's initial sepsis screen is negative. Does the patient have a suspected source of infection? No. Patient's initial sepsis screen is negative. Risk Assessment: Do you want to hurt yourself or someone else? Patient reports no desire to harm self or others. Onset of symptoms was October 25, 2024. 08:59 Acuity: ARMANDO 4 aa5 08:59 Method Of Arrival: EMS: [facility] aa5 Historical: - Allergies: 08:59 Bananas (Anaphylaxis); aa5 08:59 Codeine; aa5 08:59 PENICILLINS; aa5 - PMHx: 08:59 Anxiety; Back pain; Hypertension; Hypercholesterolemia; aa5 - Immunization history:: Adult Immunizations unknown. - Infectious Disease History:: Denies. - Social history:: Smoking status: Patient reports the use of cigarette tobacco products. - Family history:: not pertinent. Screenin:00 [facility] ED Fall Risk Assessment (Adult) History of falling in the last 3 months, aa5 including since admission Yes- single mechanical fall (1 pt) Confusion or Disorientation No (0 pts) Intoxicated or Sedated No (0 pts) Impaired Gait No (0 pts) Mobility Assist Device Used No (0 pt) Altered Elimination No (0 pt) Score/Fall Risk Level 0 - 2 = Low Risk Oriented to surroundings, Maintained a safe environment, Educated pt \T\ family on fall prevention, incl call for assistance when getting out of bed, Assessed \T\ reinforced patient's understanding of fall precautions. Abuse screen: Denies threats or abuse. Nutritional screening: No deficits noted. Tuberculosis screening: No symptoms or risk factors identified. Assessment: 08:59 General: Appears comfortable, Behavior is calm, cooperative. Pain: Complains of pain in aa5 left lateral anterior chest/left lower rib cage Pain currently is 0 out of 10 on a pain scale. Is intermittent. Neuro: Level of Consciousness is awake, alert, obeys commands, Oriented to person, place, time, situation. Cardiovascular: Patient's skin is warm and dry. Respiratory: Airway is patent Respiratory effort is even, unlabored, Respiratory pattern is regular, symmetrical. GI: No signs and/or symptoms were reported involving the gastrointestinal system. : No signs and/or symptoms were reported regarding the genitourinary system. EENT: No signs and/or symptoms were reported regarding the EENT system. Derm: Skin is pink, warm \T\ dry. Musculoskeletal: Range of motion: intact in all extremities. Vital Signs: 08:59 BP 118 / 68; Pulse 78; Resp 15 S; Temp 98.2(TE); Pulse Ox 100% on R/A; Weight 61.23 kg aa5 (R); Height 5 ft. 5 in. (R); 11:01 BP 122 / 68; Pulse 73; Resp 17; Pulse Ox 99% on R/A; ap3 08:59 Body Mass Index 22.46 (61.23 kg, 165.1 cm) aa5 ED Course: 08:59 Patient arrived in ED. aa5 08:59 Arm band placed on Patient placed in an exam room, on a stretcher. aa5 08:59 Patient has correct armband on for positive identification. Bed in low position. Call aa5 light in reach. Side rails up X 1. Pulse ox on. NIBP on. 09:00 Sunday Bill MD is Attending Physician. rt 09:15 Cherelle Soriano, IDA is Primary Nurse. aa5 09:18 Triage completed. aa5 09:43 No provider procedures requiring assistance completed. aa5 09:49 Ribs Left XRAY In Process Unspecified. EDMS 11:02 Provided Education on: discharge instructions . ap3 11:02 Patient did not have IV access during this emergency room visit. ap3 Administered Medications: No medications were administered Medication: 09:41 VIS not applicable for this client. aa5 Outcome: 10:49 Discharge ordered by . rt 11:01 Discharged to home ambulatory, with family, ap3 11:01 Condition: good 11:01 Discharge instructions given to patient, Instructed on discharge instructions, follow up and referral plans. Demonstrated understanding of instructions, follow-up care, 11:02 Patient left the ED. ap3 Signatures: Dispatcher [employer] EDCherelle García RN RN aa5 Palma Wilson RN RN ap3 Sunday Bill MD MD rt
[2024-10-25 11:08] VITALS: BP 122/68; TEMP 98.2; O2SAT 99
== END 2024-10-25 11:02 | disposition home or self-care (01) ==
LOC: ER 08:57
DX: R07.81 Pleurodynia (principal); W01.0XXA Fall on same level from slipping, tripping and stumbling without subsequent striking against object, initial encounter; Z72.0 Tobacco use
CPT/HCPCS: 99283